=== PATIENT | female | born 1960 | race Caucasian/White ===

== ENCOUNTER 2018-05-27 16:53 | Emergency (ER) | payer OTHER ==
[2018-05-27 17:12] VITALS: BP 97/62; PULSE 74; RESP 16; TEMP 98.4
--- NOTE | 2018-05-27 18:28 | ED ---
ENT HPI - General Chief complaint: ENT Stated complaint: throat pain Time Seen by Provider: 05/27/18 18:14 Source: patient, RN notes reviewed Mode of arrival: ambulatory Limitations: no limitations - History of Present Illness Initial comments: This is a 58-year-old female who presents to the emergency department with chief complaint of throat pain and a lump. Patient states that since yesterday she has had a sore throat, left ear pain and a runny nose. She denies any fevers or chills, cough, chest pain or shortness of breath, abdominal pain, nausea or vomiting. Patient states that when she woke up this morning she had a tender mass on the left side of her neck. - Related Data Allergies Allergy/AdvReac Type Severity Reaction Status Date / Time No Known Allergies Allergy Verified 05/27/18 17:12 Review of Systems ROS Statement: Those systems with pertinent positive or pertinent negative responses have been documented in the HPI. ROS Other: All systems not noted in ROS Statement are negative. Past Medical History Past Medical History: No Reported History, Thyroid Disorder Additional Past Medical History / Comment(s): cysts on (R) kidney. History of Any Multi-Drug Resistant Organisms: None Reported Additional Past Surgical History / Comment(s): parathyroidectomy Past Psychological History: Bipolar Smoking Status: Current every day smoker Past Alcohol Use History: None Reported Past Drug Use History: None Reported General Exam - General Exam Comments Initial Comments: General: Awake and alert, well-developed; in no apparent distress. HEENT: Head atraumatic, normocephalic. Pupils are equal, round and reactive to light. Extraocular movements intact. Oropharynx moist without erythema or exudate. Bilateral TMs are pearly without effusion or bulging. Neck: Supple. Normal ROM. Tenderness left-sided submandibular lymphadenopathy. Cardiovascular: Regular rate and rhythm. No murmurs, rubs or gallops. Chest symmetrical. Respiratory: Lungs clear to auscultation bilaterally. No wheezes, rales or rhonchi. Normal respiratory effort with no use of accessory muscles. Musculoskeletal: Normal ROM, no tenderness bilateral upper and lower extremities. Ambulating normally. Skin: [place], warm and dry without rashes or lesions. Neurological: Alert and oriented x3. CN II-XII grossly intact. Speech is fluent and answers are appropriate. No focal neuro deficits. Psychiatric: Normal mood and affect. No overt signs of depression or anxiety noted. Limitations: no limitations Course Vital Signs 05/27/18 17:08 Temperature 98.4 F Pulse Rate 74 Respiratory 16 Rate Blood Pressure 97/62 O2 Sat by Pulse 98 Oximetry Medical Decision Making - Medical Decision Making This is a 58-year-old female who presents to the emergency department with chief complaint of sore throat and neck lump. Patient states yesterday morning she developed a sore throat, left ear pain and a runny nose. She states that this morning she woke up and had a tender lump on the left side of her neck. On physical examination, oropharynx is non-erythematous. Bilateral TMs are pearly without effusion. Patient has a tender submandibular lymphadenopathy. Likely viral at this point as her symptoms have only been present for one day. Recommended following up with her primary care provider and if symptoms persist longer than 1 week that antibiotics may be warranted at that time. Patient's vital signs are stable and she is in no acute distress. Patient will be discharged home at this time. She is in agreement and voices understanding. All questions were answered. Disposition Clinical Impression: Upper respiratory infection, Lymphadenopathy Disposition: HOME SELF-CARE Condition: Good Instructions: Upper Respiratory Infection (ED), Lymphadenopathy (ED) Additional Instructions: Please follow up with primary care provider within 1-2 days. Return to emergency department if symptoms should worsen or any concerns arise. Is patient prescribed a controlled substance at d/c from ED?: No Referrals: Keegan Bragg MD [Primary Care Provider] - 1-2 days Time of Disposition: 18:27
== END 2018-05-27 18:45 | disposition home or self-care (01) ==
LOC: EC 16:53
DX: J06.9 Acute upper respiratory infection, unspecified (principal); R59.1 Generalized enlarged lymph nodes; F17.200 Nicotine dependence, unspecified, uncomplicated
CPT/HCPCS: 99282

== ENCOUNTER 2018-07-16 21:03 | Emergency (ER) | payer OTHER ==
--- NOTE | 2018-07-16 21:40 | ED ---
Psych HPI <Angelia Alberto - Last Filed: 07/17/18 02:44> - General Source: patient, EMS, RN notes reviewed, old records reviewed Mode of arrival: EMS - History of Present Illness MD Complaint: suicidal ideation, feels depressed -: unknown Associated Psychiatric Symptoms: depression, suicidal ideation History of same: Yes Quality: changing over time, getting worse Improves With: none Worsens With: none Associated Symptoms: denies other symptoms <Mark Carson - Last Filed: 07/20/18 20:26> - General Chief Complaint: Psychiatric Symptoms Stated Complaint: SUICIDAL Time Seen by Provider: 07/16/18 21:13 - History of Present Illness Initial Comments: This is a 58-year-old female the ER for evaluation. Patient presents today for evaluation regarding overdose. Intentional overdose secondary to suicide. Patient was depressed earlier today took her medications all at once. Denies current symptoms of suicide, but coming in for evaluation regarding overdose. Patient's brought in by PD (Mark Carson) - Related Data Home Medications Medication Instructions Recorded Confirmed Cyanocobalamin (Vitamin B-12) 2,500 mcg PO DAILY 05/27/18 07/16/18 [Vitamin B12] Multivitamins, Thera [Multivitamin 1 tab PO DAILY 05/27/18 07/16/18 (formulary)] Pantoprazole Sodium [Protonix] 40 mg PO BID 05/27/18 07/16/18 clonazePAM [KlonoPIN] 1 mg PO QID PRN 05/27/18 07/16/18 Venlafaxine HCl [Effexor XR] 225 mg PO DAILY 07/16/18 07/16/18 lamoTRIgine [LaMICtal] 100 mg PO BID 07/16/18 07/16/18 risperiDONE 3 mg PO BID 07/16/18 07/16/18 Allergies Allergy/AdvReac Type Severity Reaction Status Date / Time No Known Allergies Allergy Verified 07/16/18 21:30 Review of Systems ROS Other: All systems not noted in ROS Statement are negative. <Angelia Alberto - Last Filed: 07/17/18 02:44> ROS Other: All systems not noted in ROS Statement are negative. <Mark Carson - Last Filed: 07/20/18 20:26> ROS Statement: Those systems with pertinent positive or pertinent negative responses have been documented in the HPI. Past Medical History Past Medical History: No Reported History, Thyroid Disorder Additional Past Medical History / Comment(s): cysts on (R) kidney. History of Any Multi-Drug Resistant Organisms: None Reported Additional Past Surgical History / Comment(s): parathyroidectomy Past Psychological History: Bipolar Smoking Status: Current every day smoker Past Alcohol Use History: None Reported Past Drug Use History: None Reported <Mark Carson - Last Filed: 07/20/18 20:26> General Exam Limitations: no limitations General appearance: alert, in no apparent distress Head exam: Present: atraumatic, normocephalic, normal inspection Eye exam: Present: normal appearance, PERRL, EOMI. Absent: scleral icterus, conjunctival injection, periorbital swelling ENT exam: Present: normal exam, mucous membranes moist Neck exam: Present: normal inspection. Absent: tenderness, meningismus, lymphadenopathy Respiratory exam: Present: normal lung sounds bilaterally. Absent: respiratory distress, wheezes, rales, rhonchi, stridor Cardiovascular Exam: Present: regular rate, normal rhythm, normal heart sounds. Absent: systolic murmur, diastolic murmur, rubs, gallop, clicks GI/Abdominal exam: Present: soft, normal bowel sounds. Absent: distended, tenderness, guarding, rebound, rigid Extremities exam: Present: normal inspection, full ROM, normal capillary refill. Absent: tenderness, pedal edema, joint swelling, calf tenderness Back exam: Present: normal inspection Neurological exam: Present: alert, oriented X3, CN II-XII intact Psychiatric exam: Present: normal affect, normal mood Skin exam: Present: warm, dry, intact, normal color. Absent: rash <Mark Carson - Last Filed: 07/20/18 20:26> Course <Angelia Alberto P - Last Filed: 07/17/18 02:44> <Mark Carson - Last Filed: 07/20/18 20:26> Vital Signs 07/16/18 07/17/18 07/17/18 21:21 03:02 04:35 Temperature 97.1 F L 98.4 F Pulse Rate 81 79 Respiratory 17 17 18 Rate Blood Pressure 113/76 122/68 O2 Sat by Pulse 99 97 Oximetry - Reevaluation(s) Reevaluation #1: 07/16/18 21:40 Patient medically clear for psychiatric evaluation (Mark Carosn) Reevaluation #2: 07/16/18 21:40 Patient is petition by PD (Mark Carson) Medical Decision Making - Lab Data Result diagrams: 07/16/18 21:50 07/16/18 21:50 <Angelia Alberto - Last Filed: 07/17/18 02:44> - Lab Data Result diagrams: 07/16/18 21:50 07/16/18 21:50 - EKG Data -: EKG Interpreted by Me (EKG shows sinus rhythm rate of 70, AL 170, QRS 122, QTc 465) EKG shows normal: sinus rhythm Rate: normal <Mark Carson - Last Filed: 07/20/18 20:26> - Medical Decision Making Patient care was signed out to me at shift change. Patient presented to the emergency department intoxicated with suicidal thoughts. Patient was evaluated by EPS and they made the determination that patient is not safe for discharge home and requires inpatient admission. Due to there being no beds available in our facility decision was made to transfer the patient. The patient was petitioned by EPS nurse. I personally saw and evaluated the patient who confirm that she has been drinking heavily, feeling depressed and did take a handful of pills yesterday as well as cut her left wrist, superficially. Patient does have a history of bipolar and self-harm behaviors. Patient states that she currently does not have a psychiatrist or psychologist, her bipolar medications are managed by her primary care physician At this time I do agree that the patient is a danger to herself and will benefit from inpatient admission. I completed the psychiatric certification paperwork. (Angelia Alberto) 58 female the ER for evaluation, will be admitted for psychiatric evaluation and treatment (Mark Carson) - Lab Data Lab Results 07/16/18 07/16/18 07/16/18 Range/Units 21:50 21:50 21:50 WBC (3.8-10.6) k/uL RBC (3.80-5.40) m/uL Hgb (11.4-16.0) gm/dL Hct (34.0-46.0) % MCV (80.0-100.0) fL MCH (25.0-35.0) pg MCHC (31.0-37.0) g/dL RDW (11.5-15.5) % Plt Count (150-450) k/uL Neutrophils % % Lymphocytes % % Monocytes % % Eosinophils % % Basophils % % Neutrophils # (1.3-7.7) k/uL Lymphocytes # (1.0-4.8) k/uL Monocytes # (0-1.0) k/uL Eosinophils # (0-0.7) k/uL Basophils # (0-0.2) k/uL PT 10.4 (9.0-12.0) sec INR 1.1 (<1.2) Sodium 138 (137-145) mmol/L Potassium (3.5-5.1) mmol/L Chloride 107 (98-107) mmol/L Carbon Dioxide 24 (22-30) mmol/L Anion Gap 7 mmol/L BUN 20 H (7-17) mg/dL Creatinine 0.91 (0.52-1.04) mg/dL Est GFR (CKD-EPI)AfAm 81 (>60 ml/min/1.73 sqM) Est GFR (CKD-EPI)NonAf 70 (>60 ml/min/1.73 sqM) Glucose 77 (74-99) mg/dL Calcium 10.2 (8.4-10.2) mg/dL Total Bilirubin 1.0 (0.2-1.3) mg/dL AST 39 H (14-36) U/L ALT 25 (9-52) U/L Alkaline Phosphatase 86 (38-126) U/L Total Creatine Kinase 66 (30-135) U/L CK-MB (CK-2) 0.6 (0.0-2.4) ng/mL CK-MB (CK-2) Rel Index 0.9 Total Protein 7.1 (6.3-8.2) g/dL Albumin 4.2 (3.5-5.0) g/dL Lipase 225 (23-300) U/L Urine Color Urine Appearance (Clear) Urine pH (5.0-8.0) Ur Specific [place] (1.001-1.035) Urine Protein (Negative) Urine Glucose (UA) (Negative) Urine Ketones (Negative) Urine Blood (Negative) Urine Nitrite (Negative) Urine Bilirubin (Negative) Urine Urobilinogen (<2.0) mg/dL Ur Leukocyte Esterase (Negative) Urine WBC (0-5) /hpf Ur Squamous Epith Cells (0-4) /hpf Urine Mucus (None) /hpf Salicylates <1.0 mg/dL Urine Opiates Screen (NotDetected) Ur Oxycodone Screen (NotDetected) Urine Methadone Screen (NotDetected) Ur Propoxyphene Screen (NotDetected) Acetaminophen <10.0 ug/mL Ur Barbiturates Screen (NotDetected) U Tricyclic Antidepress (NotDetected) Ur Phencyclidine Scrn (NotDetected) Ur Amphetamines Screen (NotDetected) U Methamphetamines Scrn (NotDetected) U Benzodiazepines Scrn (NotDetected) Urine Cocaine Screen (NotDetected) U Marijuana (THC) Screen (NotDetected) Serum Alcohol <10 mg/dL 07/16/18 07/16/18 Range/Units 21:50 22:03 WBC 9.3 (3.8-10.6) k/uL RBC 4.29 (3.80-5.40) m/uL Hgb 13.5 (11.4-16.0) gm/dL Hct 39.1 (34.0-46.0) % MCV 91.1 (80.0-100.0) fL MCH 31.5 (25.0-35.0) pg MCHC 34.6 (31.0-37.0) g/dL RDW 13.0 (11.5-15.5) % Plt Count 273 (150-450) k/uL Neutrophils % 75 % Lymphocytes % 17 % Monocytes % 6 % Eosinophils % 1 % Basophils % 0 % Neutrophils # 7.0 (1.3-7.7) k/uL Lymphocytes # 1.6 (1.0-4.8) k/uL Monocytes # 0.5 (0-1.0) k/uL Eosinophils # 0.1 (0-0.7) k/uL Basophils # 0.0 (0-0.2) k/uL PT (9.0-12.0) sec INR (<1.2) Sodium (137-145) mmol/L Potassium (3.5-5.1) mmol/L Chloride (98-107) mmol/L Carbon Dioxide (22-30) mmol/L Anion Gap mmol/L BUN (7-17) mg/dL Creatinine (0.52-1.04) mg/dL Est GFR (CKD-EPI)AfAm (>60 ml/min/1.73 sqM) Est GFR (CKD-EPI)NonAf (>60 ml/min/1.73 sqM) Glucose (74-99) mg/dL Calcium (8.4-10.2) mg/dL Total Bilirubin (0.2-1.3) mg/dL AST (14-36) U/L ALT (9-52) U/L Alkaline Phosphatase (38-126) U/L Total Creatine Kinase (30-135) U/L CK-MB (CK-2) (0.0-2.4) ng/mL CK-MB (CK-2) Rel Index Total Protein (6.3-8.2) g/dL Albumin (3.5-5.0) g/dL Lipase (23-300) U/L Urine Color Light Yellow Urine Appearance Clear (Clear) Urine pH 5.5 (5.0-8.0) Ur Specific [place] 1.007 (1.001-1.035) Urine Protein Negative (Negative) Urine Glucose (UA) Negative (Negative) Urine Ketones Negative (Negative) Urine Blood Negative (Negative) Urine Nitrite Negative (Negative) Urine Bilirubin Negative (Negative) Urine Urobilinogen <2.0 (<2.0) mg/dL Ur Leukocyte Esterase Small H (Negative) Urine WBC 10 H (0-5) /hpf Ur Squamous Epith Cells 2 (0-4) /hpf Urine Mucus Rare H (None) /hpf Salicylates mg/dL Urine Opiates Screen Not Detected (NotDetected) Ur Oxycodone Screen Not Detected (NotDetected) Urine Methadone Screen Not Detected (NotDetected) Ur Propoxyphene Screen Not Detected (NotDetected) Acetaminophen ug/mL Ur Barbiturates Screen Not Detected (NotDetected) U Tricyclic Antidepress Not Detected (NotDetected) Ur Phencyclidine Scrn Not Detected (NotDetected) Ur Amphetamines Screen Not Detected (NotDetected) U Methamphetamines Scrn Not Detected (NotDetected) U Benzodiazepines Scrn Not Detected (NotDetected) Urine Cocaine Screen Not Detected (NotDetected) U Marijuana (THC) Screen Not Detected (NotDetected) Serum Alcohol mg/dL Disposition <Angelia Alberto P - Last Filed: 07/17/18 02:44> Is patient prescribed a controlled substance at d/c from ED?: No <Mark Carson - Last Filed: 07/20/18 20:26> Clinical Impression: Acute anxiety, Depression, Suicidal ideation Disposition: TRANSFER TO PSYCH HOSP/UNIT Condition: Fair Referrals: Keegan Bragg MD [Primary Care Provider] - 1-2 days
[2018-07-16 22:07] LABS: Basophils % (A) 0 %; Eosinophils # (A) 0.1 k/uL (0-0.7); Eosinophils % (A) 1 %; HCT 39.1 % (34.0-46.0); HGB 13.5 gm/dL (11.4-16.0); Lymphocytes # (A) 1.6 k/uL (1.0-4.8); Lymphocytes % (A) 17 %; MCH 31.5 pg (25.0-35.0); MCHC 34.6 g/dL (31.0-37.0); MCV 91.1 fL (80.0-100.0); Mean Platelet Volume 6.9; Monocytes # (A) 0.5 k/uL (0-1.0); Monocytes % (A) 6 %; Neutrophils % (A) 75 %; Platelet Count 273 k/uL (150-450); RBC 4.29 m/uL (3.80-5.40); WBC 9.3 k/uL (3.8-10.6)
[2018-07-16 22:13] LABS: Appearance,Urine Clear (Clear); Bilirubin,Urine Negative (Negative); Blood,Urine Negative (Negative); Color,Urine Light Yellow; Glucose,Urine (UA) Negative (Negative); Ketones,Urine Negative (Negative); Leukocyte Esterase,Urine Small (Negative); Mucus,Urine Rare /hpf; Nitrite,Urine Negative (Negative); PH, Urine 5.5 (5.0-8.0); Protein,Urine Negative (Negative); Specific Gravity,Urine 1.007 (1.001-1.035); Squamous Epithelial Cell,Urine 2 /hpf (0-4); Urobilinogen,Urine <2.0 mg/dL (<2.0); WBC,Urine 10 /hpf (0-5)
[2018-07-16 22:21] LABS: Amphetamine Screen,Urine Not Detected (NotDetected); Barbiturate Screen,Urine Not Detected (NotDetected); Benzodiazepines Screen,Urine Not Detected (NotDetected); Cocaine Screen,Urine Not Detected (NotDetected); Methadone Screen, Urine Not Detected (NotDetected); Opiate Screen,Urine Not Detected (NotDetected); Oxycodone Screen, Urine Not Detected (NotDetected); Phencyclidine Screen,Urine Not Detected (NotDetected); Tricyclic Antidepressant,Urine Not Detected (NotDetected); Urn Cannabinoid Scrn Not Detected (NotDetected)
[2018-07-16 22:26] LABS: INR 1.1 (<1.2); Prothrombin Time 10.4 sec (9.0-12.0)
[2018-07-16 22:29] LABS: Acetaminophen <10.0 ug/mL; Alcohol <10 mg/dL; Anion Gap 7 mmol/L; Calcium 10.2 mg/dL (8.4-10.2); Carbon Dioxide 24 mmol/L (22-30); Chloride 107 mmol/L (98-107); Glucose 77 mg/dL (74-99); Lipase 225 U/L (23-300); Salicylate <1.0 mg/dL; Sodium 138 mmol/L (137-145)
[2018-07-16 22:31] LABS: Albumin 4.2 g/dL (3.5-5.0)
[2018-07-16 22:32] LABS: ALT 25 U/L (9-52); AST 39 U/L (14-36); Alkaline Phosphatase 86 U/L (38-126); Blood Urea Nitrogen 20 mg/dL (7-17); Total Protein 7.1 g/dL (6.3-8.2)
[2018-07-16 22:36] LABS: Creatine Kinase MB 0.6 ng/mL (0.0-2.4)
[2018-07-17 04:36] VITALS: BP 122/68; PULSE 79; RESP 18; TEMP 98.4
== END 2018-07-17 06:33 ==
LOC: EC 21:03
DX: F41.9 Anxiety disorder, unspecified (principal); F31.9 Bipolar disorder, unspecified; R45.851 Suicidal ideations; F17.200 Nicotine dependence, unspecified, uncomplicated; Z79.899 Other long term (current) drug therapy
CPT/HCPCS: 36415; 80053; 80306; 80320; 81001; 82075; 82550; 82553; 83520; 83690; 85025; 85610; 93005; 99285

== ENCOUNTER → 2018-12-10 | Outpatient (CLI) | payer MEDICARE ==
[2018-12-10 08:40] LABS: Basophils % (A) 0 %; Eosinophils % (A) 0 %; HCT 43.9 % (34.0-46.0); HGB 14.8 gm/dL (11.4-16.0); Lymphocytes % (A) 15 %; MCH 31.4 pg (25.0-35.0); MCHC 33.7 g/dL (31.0-37.0); Mean Platelet Volume 6.6; Monocytes # (A) 0.5 k/uL (0-1.0); Monocytes % (A) 8 %; Neutrophils # (A) 5.2 k/uL (1.3-7.7); Neutrophils % (A) 76 %; Platelet Count 228 k/uL (150-450); RBC 4.72 m/uL (3.80-5.40); RDW 12.5 % (11.5-15.5); WBC 6.9 k/uL (3.8-10.6)
[2018-12-10 10:14] LABS: Erythrocyte Sedimentation Rate 8 mm/hr (0-20)
[2018-12-10 11:15] LABS: Creatinine 24 Hour,Urine 871.2 mg/24hr (800.0-1800.0)
[2018-12-10 14:55] LABS: Anion Gap 4 mmol/L; Blood Urea Nitrogen 19 mg/dL (7-17); C Reactive Protein <5.0 mg/L (<10.0); Calcium 10.3 mg/dL (8.4-10.2); Carbon Dioxide 31 mmol/L (22-30); Chloride 105 mmol/L (98-107); Glucose 90 mg/dL (74-99); Potassium 4.4 mmol/L (3.5-5.1); Sodium 140 mmol/L (137-145)
[2018-12-10 17:15] LABS: Total Volume 24 Hour,Urine 2400 mL
[2018-12-10 17:57] LABS: Total Protein 24 Hour,Urine 100.8 mg/24Hr
[2018-12-10 18:45] LABS: Rheumatoid Factor 6 IU/mL (0-15)
== END | disposition home or self-care (01) ==
LOC: LABWHC1 08:10
PROVIDERS: ATTEND Family Medicine
DX: Z00.00 Encounter for general adult medical examination without abnormal findings (principal); J44.9 Chronic obstructive pulmonary disease, unspecified; Q61.2 Polycystic kidney, adult type; R94.4 Abnormal results of kidney function studies
CPT/HCPCS: 36415; 80048; 81050; 82575; 84156; 85025; 85652; 86038; 86140; 86431

== ENCOUNTER → 2018-12-23 | Outpatient (CLI) | payer MEDICARE ==
--- NOTE | 2018-12-23 17:16 | US ---
EXAMINATION TYPE: US kidneys/renal and bladder DATE OF EXAM: 12/23/2018 COMPARISON: NONE CLINICAL HISTORY: 58-year-old female Q61.2 Polycystic kidney, adult type. TECHNIQUE: Multiple sonographic images of the kidneys and bladder are obtained. FINDINGS: EXAM MEASUREMENTS: Right Kidney: 9.6 x 3.4 x 3.9 cm Left Kidney: 10.0 x 3.1 x 4.9 cm No hydronephrosis on either side. Right Kidney: cyst lower/lateral measures 1.7 x 1.7 x 2.1 cm Left Kidney: several small cysts, largest measures 1.8 x 1.8 x 1.5 cm. Bladder: wnl Bilateral Jets seen: Yes IMPRESSION: 1. A few bilateral renal cysts, largest measuring 1.8 cm. 2. No hydronephrosis on either side.
== END | disposition home or self-care (01) ==
LOC: RADUSWWP 14:51
PROVIDERS: ATTEND Family Medicine
DX: N28.1 Cyst of kidney, acquired (principal)
CPT/HCPCS: 76770

== ENCOUNTER 2019-05-02 17:06 | Emergency (ER) | payer MEDICARE ==
[2019-05-02 17:19] VITALS: TEMP 98.2
[2019-05-02] MEDS ORDERED: MECLIZINE 12.5 MG TAB PO STA (17:53)
[2019-05-02] MEDS ORDERED: SODIUM CHLORIDE 0.9% 1,000 ML IV STA (17:53)
[2019-05-02] MEDS ORDERED: SODIUM CHLORIDE 0.9% 500 ML 500 ML IV STA (17:53)
[2019-05-02] MEDS ORDERED: IPRATROPIUM-ALBUTEROL 3 ML NEB INHALATION STA (17:55)
--- NOTE | 2019-05-02 17:58 | ED ---
Dizziness HPI - General Chief Complaint: Dizziness Stated Complaint: dizziness Time Seen by Provider: 05/02/19 17:30 Source: patient Mode of arrival: ambulatory Limitations: no limitations - History of Present Illness Initial Comments: This is a 59-year-old female was a 1-1/2 pack a day smoker who presents with the onset of complaints of dizziness that started 2 days ago. She states it gets worse with head movement or positional changes. She has a headache fevers chills nausea vomiting sweats she does have some cough and shortness of breath. No focal weakness no other symptoms no trauma reported no other modifying factors. MD Complaint: dizziness, other - Related Data Home Medications Medication Instructions Recorded Confirmed Multivitamins, Thera [Multivitamin 1 tab PO DAILY 05/27/18 05/02/19 (formulary)] clonazePAM [KlonoPIN] 1 mg PO QID PRN 05/27/18 05/02/19 risperiDONE 3 mg PO BID 07/16/18 05/02/19 Ascorbic Acid [Vitamin C] 500 mg PO DAILY 12/26/18 05/02/19 Calcium Carbonate [Calcium] 600 mg PO DAILY 12/26/18 05/02/19 Levothyroxine Sodium [Synthroid] 50 mcg PO DAILY 12/26/18 05/02/19 Venlafaxine HCl ER [Effexor Xr] 225 mg PO DAILY 12/26/18 05/02/19 Pantoprazole Sodium [Protonix] 40 mg PO BID 05/02/19 05/02/19 lamoTRIgine [LaMICtal] 100 mg PO BID 05/02/19 05/02/19 Previous Rx's Medication Instructions Recorded Meclizine [Antivert] 25 mg PO TID #20 tab 05/02/19 Allergies Allergy/AdvReac Type Severity Reaction Status Date / Time No Known Allergies Allergy Verified 05/02/19 18:14 Review of Systems ROS Statement: Those systems with pertinent positive or pertinent negative responses have been documented in the HPI. ROS Other: All systems not noted in ROS Statement are negative. Past Medical History Past Medical History: Thyroid Disorder Additional Past Medical History / Comment(s): cysts on (R) kidney. History of Any Multi-Drug Resistant Organisms: None Reported Past Surgical History: Cholecystectomy, Hysterectomy Additional Past Surgical History / Comment(s): parathyroidectomy Past Psychological History: Bipolar Smoking Status: Current every day smoker Past Alcohol Use History: None Reported Past Drug Use History: None Reported, Opiates, Prescription Drug Abuse General Exam - General Exam Comments Initial Comments: This is a well-developed well-nourished awake alert oriented 3 female she is audibly wheezing. Limitations: no limitations General appearance: alert, in no apparent distress Head exam: Present: atraumatic, normocephalic, normal inspection Eye exam: Present: normal appearance, PERRL, EOMI. Absent: scleral icterus, conjunctival injection, periorbital swelling ENT exam: Present: normal exam, mucous membranes moist Neck exam: Present: normal inspection, full ROM, other. Absent: tenderness, meningismus, lymphadenopathy Respiratory exam: Present: wheezes, decreased breath sounds (No stridor JVD or bruits). Absent: respiratory distress, rales, rhonchi, stridor Cardiovascular Exam: Present: regular rate, normal rhythm, normal heart sounds. Absent: systolic murmur, diastolic murmur, rubs, gallop, clicks GI/Abdominal exam: Present: soft, normal bowel sounds. Absent: distended, tenderness, guarding, rebound, rigid Extremities exam: Present: normal inspection, full ROM, normal capillary refill. Absent: tenderness, pedal edema, joint swelling, calf tenderness Back exam: Present: normal inspection Neurological exam: Present: alert, oriented X3, CN II-XII intact Psychiatric exam: Present: normal affect, normal mood Skin exam: Present: warm, dry, intact, normal color. Absent: rash Course Vital Signs 05/02/19 05/02/19 05/02/19 17:16 17:44 18:34 Temperature 98.2 F Pulse Rate 77 67 61 Respiratory 18 20 Rate Blood Pressure 107/68 O2 Sat by Pulse 97 99 Oximetry 05/02/19 18:48 Temperature Pulse Rate 62 Respiratory Rate Blood Pressure O2 Sat by Pulse Oximetry EKG Findings - EKG Results: EKG: interpreted by TELLY, sinus rhythm (Sinus rhythm rate 67 appear interval 190 QRS duration 110 QT since QTC 460/[address]-T wave changes) Procedures - Smoking Cessation Time Spent Discussing Smoking Cessation w/Patient (Minutes): 3 Patient Acknowledges Need for Cessation: Yes Medical Decision Making - Medical Decision Making Patient is feeling improved after the medication was rendered workup thus far is unremarkable patient does demonstrate evidence of a benign positional vertigo she will be discharged on appropriate medication she is a follow-up doctor return when necessary she is in agreement with this. - Lab Data Result diagrams: 05/02/19 17:40 05/02/19 17:40 Lab Results 05/02/19 05/02/19 05/02/19 Range/Units 17:40 17:40 17:40 WBC 10.3 (3.8-10.6) k/uL RBC 4.52 (3.80-5.40) m/uL Hgb 14.0 (11.4-16.0) gm/dL Hct 41.1 (34.0-46.0) % MCV 90.9 (80.0-100.0) fL MCH 31.0 (25.0-35.0) pg MCHC 34.1 (31.0-37.0) g/dL RDW 12.5 (11.5-15.5) % Plt Count 270 (150-450) k/uL Neutrophils % 77 % Lymphocytes % 16 % Monocytes % 6 % Eosinophils % 0 % Basophils % 0 % Neutrophils # 7.9 H (1.3-7.7) k/uL Lymphocytes # 1.6 (1.0-4.8) k/uL Monocytes # 0.6 (0-1.0) k/uL Eosinophils # 0.0 (0-0.7) k/uL Basophils # 0.0 (0-0.2) k/uL Sodium 139 (137-145) mmol/L Potassium 4.4 (3.5-5.1) mmol/L Chloride 106 (98-107) mmol/L Carbon Dioxide 26 (22-30) mmol/L Anion Gap 7 mmol/L BUN 18 H (7-17) mg/dL Creatinine 1.25 H (0.52-1.04) mg/dL Est GFR (CKD-EPI)AfAm 55 (>60 ml/min/1.73 sqM) Est GFR (CKD-EPI)NonAf 48 (>60 ml/min/1.73 sqM) Glucose 79 (74-99) mg/dL Calcium 10.0 (8.4-10.2) mg/dL Magnesium 2.0 (1.6-2.3) mg/dL Total Bilirubin 0.3 (0.2-1.3) mg/dL AST 30 (14-36) U/L ALT 17 (9-52) U/L Alkaline Phosphatase 97 (38-126) U/L Creatine Kinase 55 (30-135) U/L Troponin I <0.012 (0.000-0.034) ng/mL Total Protein 6.8 (6.3-8.2) g/dL Albumin 4.3 (3.5-5.0) g/dL Urine Color Urine Appearance (Clear) Urine pH (5.0-8.0) Ur Specific [place] (1.001-1.035) Urine Protein (Negative) Urine Glucose (UA) (Negative) Urine Ketones (Negative) Urine Blood (Negative) Urine Nitrite (Negative) Urine Bilirubin (Negative) Urine Urobilinogen (<2.0) mg/dL Ur Leukocyte Esterase (Negative) 05/02/19 Range/Units 18:12 WBC (3.8-10.6) k/uL RBC (3.80-5.40) m/uL Hgb (11.4-16.0) gm/dL Hct (34.0-46.0) % MCV (80.0-100.0) fL MCH (25.0-35.0) pg MCHC (31.0-37.0) g/dL RDW (11.5-15.5) % Plt Count (150-450) k/uL Neutrophils % % Lymphocytes % % Monocytes % % Eosinophils % % Basophils % % Neutrophils # (1.3-7.7) k/uL Lymphocytes # (1.0-4.8) k/uL Monocytes # (0-1.0) k/uL Eosinophils # (0-0.7) k/uL Basophils # (0-0.2) k/uL Sodium (137-145) mmol/L Potassium (3.5-5.1) mmol/L Chloride (98-107) mmol/L Carbon Dioxide (22-30) mmol/L Anion Gap mmol/L BUN (7-17) mg/dL Creatinine (0.52-1.04) mg/dL Est GFR (CKD-EPI)AfAm (>60 ml/min/1.73 sqM) Est GFR (CKD-EPI)NonAf (>60 ml/min/1.73 sqM) Glucose (74-99) mg/dL Calcium (8.4-10.2) mg/dL Magnesium (1.6-2.3) mg/dL Total Bilirubin (0.2-1.3) mg/dL AST (14-36) U/L ALT (9-52) U/L Alkaline Phosphatase (38-126) U/L Creatine Kinase (30-135) U/L Troponin I (0.000-0.034) ng/mL Total Protein (6.3-8.2) g/dL Albumin (3.5-5.0) g/dL Urine Color Light Yellow Urine Appearance Clear (Clear) Urine pH 6.5 (5.0-8.0) Ur Specific [place] 1.004 (1.001-1.035) Urine Protein Negative (Negative) Urine Glucose (UA) Negative (Negative) Urine Ketones Negative (Negative) Urine Blood Negative (Negative) Urine Nitrite Negative (Negative) Urine Bilirubin Negative (Negative) Urine Urobilinogen <2.0 (<2.0) mg/dL Ur Leukocyte Esterase Negative (Negative) - Radiology Data Radiology results: report reviewed (I did review the imaging and report no acute findings. ), image reviewed Disposition Clinical Impression: Benign paroxysmal positional vertigo Disposition: HOME SELF-CARE Condition: Good Instructions (If sedation given, give patient instructions): Dizziness (ED), Benign Paroxysmal Positional Vertigo (ED) Prescriptions: Meclizine [Antivert] 25 mg PO TID #20 tab Is patient prescribed a controlled substance at d/c from ED?: No Referrals: Angel Ansari MD [Primary Care Provider] - 1-2 days
[2019-05-02 18:04] LABS: Basophils % (A) 0 %; Eosinophils % (A) 0 %; HCT 41.1 % (34.0-46.0); Lymphocytes # (A) 1.6 k/uL (1.0-4.8); Lymphocytes % (A) 16 %; MCHC 34.1 g/dL (31.0-37.0); MCV 90.9 fL (80.0-100.0); Mean Platelet Volume 6.5; Monocytes # (A) 0.6 k/uL (0-1.0); Monocytes % (A) 6 %; Neutrophils # (A) 7.9 k/uL (1.3-7.7); Neutrophils % (A) 77 %; Platelet Count 270 k/uL (150-450); RBC 4.52 m/uL (3.80-5.40); RDW 12.5 % (11.5-15.5); WBC 10.3 k/uL (3.8-10.6)
[2019-05-02 18:16] LABS: Albumin 4.3 g/dL (3.5-5.0); Potassium 4.4 mmol/L (3.5-5.1); Total Bilirubin 0.3 mg/dL (0.2-1.3); Total Protein 6.8 g/dL (6.3-8.2)
[2019-05-02 18:26] LABS: Appearance,Urine Clear (Clear); Bilirubin,Urine Negative (Negative); Blood,Urine Negative (Negative); Color,Urine Light Yellow; Glucose,Urine (UA) Negative (Negative); Ketones,Urine Negative (Negative); Leukocyte Esterase,Urine Negative (Negative); Nitrite,Urine Negative (Negative); PH, Urine 6.5 (5.0-8.0); Protein,Urine Negative (Negative); Specific Gravity,Urine 1.004 (1.001-1.035); Urobilinogen,Urine <2.0 mg/dL (<2.0)
--- NOTE | 2019-05-02 18:33 | CT ---
EXAMINATION TYPE: CT brain wo con DATE OF EXAM: 05/02/2019 COMPARISON: None HISTORY: PT c/o being dizzy since Thursday. CT DLP: 1078.4 mGycm Automated exposure control for dose reduction was used. FINDINGS: Ventricles and sulci appear normal. There is no mass effect nor midline shift. There is no sign of in tracranial hemorrhage. The calvarium is intact. IMPRESSION: NEGATIVE CT SCAN OF THE BRAIN.
--- NOTE | 2019-05-02 18:35 | XR ---
EXAMINATION TYPE: XR chest 2V DATE OF EXAM: 05/02/2019 COMPARISON: NONE HISTORY: Cough TECHNIQUE: Frontal and lateral views of the chest are obtained. FINDINGS: Heart and mediastinum are normal. Lungs are clear. Diaphragm is normal. There are chest le ads. Bony thorax is intact. IMPRESSION: Normal chest
[2019-05-02 20:01] VITALS: BP 117/71; PULSE 73; RESP 18
== END 2019-05-02 19:59 | disposition home or self-care (01) ==
LOC: EC 17:06
DX: H81.10 Benign paroxysmal vertigo, unspecified ear (principal); R50.9 Fever, unspecified; R05 Cough; R06.02 Shortness of breath; E07.9 Disorder of thyroid, unspecified; F31.9 Bipolar disorder, unspecified; F17.210 Nicotine dependence, cigarettes, uncomplicated; Z71.6 Tobacco abuse counseling; Z79.890 Hormone replacement therapy; Z79.899 Other long term (current) drug therapy
CPT/HCPCS: 36415; 70450; 71046; 80053; 81003; 82550; 83735; 84484; 85025; 93005; 94640; 99284; 99406

== ENCOUNTER → 2019-07-29 | Outpatient (CLI) | payer MEDICARE ==
[2019-07-29 16:57] LABS: EBV-EA (IgG) 0.2 AI; EBV-EBNA(IgG) 7.5 AI; EBV-VCA (IgG) >8.0 AI
[2019-07-29 17:00] LABS: EBV-VCA (IgM) 0.2 AI
== END | disposition home or self-care (01) ==
LOC: LABWHC1 10:24
PROVIDERS: ATTEND Nurse Practitioner Family
DX: R53.83 Other fatigue (principal)
CPT/HCPCS: 36415; 85652; 86140; 86308; 86644; 86645; 86663; 86664; 86665

== ENCOUNTER → 2019-09-14 | Outpatient (CLI) | payer MEDICARE ==
--- NOTE | 2019-09-14 11:38 | XR ---
EXAMINATION TYPE: XR hand complete RT DATE OF EXAM: 09/14/2019 CLINICAL HISTORY: pain TECHNIQUE: Frontal, lateral and oblique images of the right hand are obtained. COMPARISON: None. FINDINGS: There is no acute fracture/dislocation evident. The joint spaces appear within normal limi ts. The overlying soft tissue appears unremarkable. IMPRESSION: There is no acute fracture or dislocation ICD 10 NO FRACTURE, INITIAL EVALUATION
== END | disposition home or self-care (01) ==
LOC: RADXRMAIN 11:06
PROVIDERS: ATTEND Family Medicine
DX: M79.646 Pain in unspecified finger(s) (principal)

== ENCOUNTER → 2019-11-02 | Outpatient (CLI) | payer MEDICARE ==
--- NOTE | 2019-11-03 11:24 | MM ---
Reason for exam: screening (asymptomatic). Last mammogram was performed 4 years and 10 months ago. History: Patient is postmenopausal. Family history of breast cancer in sister and breast cancer in mother. Physical Findings: A clinical breast exam by your physician is recommended on an annual basis and results should be correlated with mammographic findings. MG 3D Screening Mammo W/Cad Bilateral CC and MLO view(s) were taken. Prior study comparison: January 03, 2015, mammogram. June 15, 2013, mammogram. The breast tissue is heterogeneously dense. This may lower the sensitivity of mammography. There are benign appearing round vascular calcifications bilaterally. There is no discrete abnormality. ASSESSMENT: Benign, BI-RAD 2 RECOMMENDATION: Routine screening mammogram of both breasts in 1 year.
--- NOTE | 2019-11-09 09:39 | P.ARTDOP ---
Arterial Doppler LOWER EXTREMITY ARTERIAL DOPPLER: DATE OF SERVICE: 11/02/2019 Reason for study: Bilateral leg pain. Doppler waveforms: Multiphasic bilaterally throughout. Pulse volume recording: []. Pressure gradients: None. Ankle-brachial indices: Greater than 1 bilaterally. Toe pressures: [] on the right, [] on the left Impression: Normal study.
== END | disposition home or self-care (01) ==
LOC: RADMAMWWP 12:38
PROVIDERS: ATTEND Family Medicine
DX: Z12.31 Encounter for screening mammogram for malignant neoplasm of breast (principal); M79.661 Pain in right lower leg; M79.662 Pain in left lower leg
CPT/HCPCS: 77063; 77067; 93922

== ENCOUNTER 2019-11-17 14:59 | Emergency (ER) | payer MEDICARE ==
[2019-11-17 15:43] LABS: Basophils # (A) 0.1 k/uL (0-0.2); Basophils % (A) 2 %; Eosinophils % (A) 0 %; HCT 42.8 % (34.0-46.0); HGB 14.5 gm/dL (11.4-16.0); Lymphocytes # (A) 1.2 k/uL (1.0-4.8); Lymphocytes % (A) 17 %; MCH 31.1 pg (25.0-35.0); MCHC 33.8 g/dL (31.0-37.0); MCV 91.9 fL (80.0-100.0); Mean Platelet Volume 6.9; Monocytes # (A) 0.5 k/uL (0-1.0); Monocytes % (A) 7 %; Neutrophils # (A) 5.2 k/uL (1.3-7.7); Neutrophils % (A) 73 %; Platelet Count 254 k/uL (150-450); RBC 4.66 m/uL (3.80-5.40); RDW 12.2 % (11.5-15.5); WBC 7.1 k/uL (3.8-10.6)
[2019-11-17 15:53] LABS: Albumin 4.2 g/dL (3.5-5.0); Calcium 9.5 mg/dL (8.4-10.2); Potassium 4.2 mmol/L (3.5-5.1); Total Bilirubin 0.4 mg/dL (0.2-1.3); Total Protein 6.8 g/dL (6.3-8.2)
[2019-11-17 15:54] LABS: Appearance,Urine Clear (Clear); Bilirubin,Urine Negative (Negative); Blood,Urine Negative (Negative); Color,Urine Light Yellow; Glucose,Urine (UA) Negative (Negative); Ketones,Urine Negative (Negative); Leukocyte Esterase,Urine Negative (Negative); Nitrite,Urine Negative (Negative); Protein,Urine Negative (Negative); Specific Gravity,Urine 1.014 (1.001-1.035); Urobilinogen,Urine <2.0 mg/dL (<2.0)
--- NOTE | 2019-11-17 15:59 | XR ---
EXAMINATION TYPE: XR ribs RT w pa chest xray DATE OF EXAM: 11/17/2019 COMPARISON: NONE HISTORY: Pain TECHNIQUE: Single view of the chest 4 views of the ribs are submitted. FINDINGS: The lungs are clear. No Evidence for pneumothorax. No evidence for focal contusion. Medi astinal structures are midline. Evaluation of the ribs fails to demonstrate evidence for displaced r ib fracture or secondary sign of rib fracture. IMPRESSION: Negative study
--- NOTE | 2019-11-17 16:16 | CT ---
EXAMINATION TYPE: CT abdomen pelvis w con DATE OF EXAM: 11/17/2019 COMPARISON: None HISTORY: Fall and injury to flank region [address] DLP: 763.8 mGycm CONTRAST: CT scan of the abdomen and pelvis is performed without Oral Contrast and with IV Contrast, patient in jected with 100 mL of Isovue 370. FINDINGS: LUNG BASES-: No visible nodule. No infiltrate. LIVER/GB: Cholecystectomy clips are in place. No space occupying hepatic lesion. Biliary tree is o f normal caliber. PANCREAS: No inflammation. No distinct mass. SPLEEN: No splenic enlargement. No lesion seen. ADRENALS: No nodule. No thickening. KIDNEYS/BLADDER: No hydronephrosis. No nephrolithiasis. Small renal cystic changes noted. Urinary b ladder grossly unremarkable. BOWEL: Normal appendix. Normal bowel caliber. No inflammation. GENITAL ORGANS: Hysterectomy changes. LYMPH NODES: No greater than 1cm abdominal or pelvic lymph nodes are appreciated. AORTA: No significant abnormality. OSSEOUS STRUCTURES: No significant abnormality is seen. OTHER: Trace free fluid seen within the pelvis. IMPRESSION: 1. Trace free fluid noted in the pelvis. No evidence for solid or hollow abdominal visceral injury. N o free air seen.
--- NOTE | 2019-11-17 16:26 | ED ---
General Adult HPI - General Chief complaint: Fall Stated complaint: fall-back pain Time Seen by Provider: 11/17/19 15:11 Source: patient, RN notes reviewed Mode of arrival: ambulatory Limitations: no limitations - History of Present Illness Initial comments: Patient's a 59-year-old female presented to the emergency room today with a chief complaint of a fall that occurred 4 days ago. She states that she tripped falling hitting eye and table on the right side of the lower back. She does not that since pain over the lower posterior ribs. States he states seems to be getting worse. She does not pain worse movements. Denies any other complaints or symptoms. Patient denies any recent fever, chills, shortness of breath, chest pain, nausea or vomiting, headaches or visual changes, or any other complaints. - Related Data Home Medications Medication Instructions Recorded Confirmed Multivitamins, Thera [Multivitamin 1 tab PO DAILY 05/27/18 05/02/19 (formulary)] clonazePAM [KlonoPIN] 1 mg PO QID PRN 05/27/18 05/02/19 risperiDONE 3 mg PO BID 07/16/18 05/02/19 Ascorbic Acid [Vitamin C] 500 mg PO DAILY 12/26/18 05/02/19 Calcium Carbonate [Calcium] 600 mg PO DAILY 12/26/18 05/02/19 Levothyroxine Sodium [Synthroid] 50 mcg PO DAILY 12/26/18 05/02/19 Venlafaxine HCl ER [Effexor Xr] 225 mg PO DAILY 12/26/18 05/02/19 Pantoprazole Sodium [Protonix] 40 mg PO BID 05/02/19 05/02/19 lamoTRIgine [LaMICtal] 100 mg PO BID 05/02/19 05/02/19 Previous Rx's Medication Instructions Recorded Meclizine [Antivert] 25 mg PO TID #20 tab 05/02/19 traMADol HCl [Ultram] 50 mg PO Q6H PRN #20 tab 11/17/19 Allergies Allergy/AdvReac Type Severity Reaction Status Date / Time No Known Allergies Allergy Verified 11/17/19 15:07 Review of Systems ROS Statement: Those systems with pertinent positive or pertinent negative responses have been documented in the HPI. ROS Other: All systems not noted in ROS Statement are negative. Past Medical History Past Medical History: Thyroid Disorder Additional Past Medical History / Comment(s): cysts on (R) kidney. History of Any Multi-Drug Resistant Organisms: None Reported Past Surgical History: Cholecystectomy, Hysterectomy Additional Past Surgical History / Comment(s): parathyroidectomy Past Psychological History: Bipolar Smoking Status: Current every day smoker Past Alcohol Use History: None Reported Past Drug Use History: None Reported, Opiates, Prescription Drug Abuse General Exam - General Exam Comments Initial Comments: General: The patient is awake and alert, in no distress, and does not appear acutely ill. Neck: The neck is supple, there is no tenderness or JVD. Cardiovascular: There is a regular rate and rhythm. No murmur, rub or gallop is appreciated. Respiratory: Lungs are clear to auscultation, respirations are non-labored, breath sounds are equal. No wheezes, stridor, rales, or rhonchi. Gastrointestinal: Abdomen soft on palpation. Patient does have tenderness to the right flank over the kidney. There is no guarding. No ecchymosis or bruising. Musculoskeletal: Normal ROM, no tenderness. Neurological: A&O x 3. CN II-XII intact, There are no obvious motor or sensory deficits. Coordination appears grossly intact. Speech is normal. Skin: Skin is warm and dry and no rashes or lesions are noted. Psychiatric: Cooperative, appropriate mood & affect, normal judgment. Limitations: no limitations Course Vital Signs 11/17/19 15:07 Temperature 98.6 F Pulse Rate 81 Respiratory 16 Rate Blood Pressure 126/79 O2 Sat by Pulse 98 Oximetry Medical Decision Making - Medical Decision Making Patient reexamined at this time shows no signs of distress is resting covered. CT the abdomen pelvis does show some free fluid in the lower pelvis but there is no solid organ injury. Patient labs been reviewed and did show mildly elevated creatinine 1.3 for this was compared to previous labs where she creatinine was 1.25. Patient x-ray of the ribs is unremarkable. Patient will be discharged home with a short prescription of pain medication. She states she's taken tramadol in the past. She is advised to follow-up family doctor over the next 2 days. Advised return if any symptoms increase worsen or for any other concerns. States understanding and is in agreement with plan. - Lab Data Result diagrams: 11/17/19 15:34 11/17/19 15:34 Lab Results 0211/17/19 11/17/19 Range/Units 15:34 15:34 15:34 WBC 7.1 (3.8-10.6) k/uL RBC 4.66 (3.80-5.40) m/uL Hgb 14.5 (11.4-16.0) gm/dL Hct 42.8 (34.0-46.0) % MCV 91.9 (80.0-100.0) fL MCH 31.1 (25.0-35.0) pg MCHC 33.8 (31.0-37.0) g/dL RDW 12.2 (11.5-15.5) % Plt Count 254 (150-450) k/uL Neutrophils % 73 % Lymphocytes % 17 % Monocytes % 7 % Eosinophils % 0 % Basophils % 2 % Neutrophils # 5.2 (1.3-7.7) k/uL Lymphocytes # 1.2 (1.0-4.8) k/uL Monocytes # 0.5 (0-1.0) k/uL Eosinophils # 0.0 (0-0.7) k/uL Basophils # 0.1 (0-0.2) k/uL Sodium 138 (137-145) mmol/L Potassium 4.2 (3.5-5.1) mmol/L Chloride 107 (98-107) mmol/L Carbon Dioxide 25 (22-30) mmol/L Anion Gap 6 mmol/L BUN 20 H (7-17) mg/dL Creatinine 1.34 H (0.52-1.04) mg/dL Est GFR (CKD-EPI)AfAm 51 (>60 ml/min/1.73 sqM) Est GFR (CKD-EPI)NonAf 44 (>60 ml/min/1.73 sqM) Glucose 94 (74-99) mg/dL Calcium 9.5 (8.4-10.2) mg/dL Total Bilirubin 0.4 (0.2-1.3) mg/dL AST 30 (14-36) U/L ALT 24 (4-34) U/L Alkaline Phosphatase 105 (38-126) U/L Total Protein 6.8 (6.3-8.2) g/dL Albumin 4.2 (3.5-5.0) g/dL Amylase 107 (30-110) U/L Lipase 260 (23-300) U/L Urine Color Urine Appearance (Clear) Urine pH (5.0-8.0) Ur Specific [place] (1.001-1.035) Urine Protein (Negative) Urine Glucose (UA) (Negative) Urine Ketones (Negative) Urine Blood (Negative) Urine Nitrite (Negative) Urine Bilirubin (Negative) Urine Urobilinogen (<2.0) mg/dL Ur Leukocyte Esterase (Negative) Urine HCG, Qual Not Detected (Not Detectd) 11/17/19 Range/Units 15:34 WBC (3.8-10.6) k/uL RBC (3.80-5.40) m/uL Hgb (11.4-16.0) gm/dL Hct (34.0-46.0) % MCV (80.0-100.0) fL MCH (25.0-35.0) pg MCHC (31.0-37.0) g/dL RDW (11.5-15.5) % Plt Count (150-450) k/uL Neutrophils % % Lymphocytes % % Monocytes % % Eosinophils % % Basophils % % Neutrophils # (1.3-7.7) k/uL Lymphocytes # (1.0-4.8) k/uL Monocytes # (0-1.0) k/uL Eosinophils # (0-0.7) k/uL Basophils # (0-0.2) k/uL Sodium (137-145) mmol/L Potassium (3.5-5.1) mmol/L Chloride (98-107) mmol/L Carbon Dioxide (22-30) mmol/L Anion Gap mmol/L BUN (7-17) mg/dL Creatinine (0.52-1.04) mg/dL Est GFR (CKD-EPI)AfAm (>60 ml/min/1.73 sqM) Est GFR (CKD-EPI)NonAf (>60 ml/min/1.73 sqM) Glucose (74-99) mg/dL Calcium (8.4-10.2) mg/dL Total Bilirubin (0.2-1.3) mg/dL AST (14-36) U/L ALT (4-34) U/L Alkaline Phosphatase (38-126) U/L Total Protein (6.3-8.2) g/dL Albumin (3.5-5.0) g/dL Amylase (30-110) U/L Lipase (23-300) U/L Urine Color Light Yellow Urine Appearance Clear (Clear) Urine pH 7.0 (5.0-8.0) Ur Specific [place] 1.014 (1.001-1.035) Urine Protein Negative (Negative) Urine Glucose (UA) Negative (Negative) Urine Ketones Negative (Negative) Urine Blood Negative (Negative) Urine Nitrite Negative (Negative) Urine Bilirubin Negative (Negative) Urine Urobilinogen <2.0 (<2.0) mg/dL Ur Leukocyte Esterase Negative (Negative) Urine HCG, Qual (Not Detectd) Disposition Clinical Impression: Fall, Contusion of rib on right side Disposition: HOME SELF-CARE Condition: Good Instructions (If sedation given, give patient instructions): Rib Contusion (ED) Additional Instructions: Please use medication as discussed. Please follow-up with family doctor in the next 2 days of symptoms have not improved. Please return to emergency room if the symptoms increase or worsen or for any other concerns. Prescriptions: traMADol HCl [Ultram] 50 mg PO Q6H PRN #20 tab PRN Reason: Pain Is patient prescribed a controlled substance at d/c from ED?: Yes If prescribed controlled substance>3 days was MAPS reviewed?: Prescribed <3 Days Referrals: Angel Ansari MD [Primary Care Provider] - 1-2 days Time of Disposition: 16:33
[2019-11-17 16:54] VITALS: BP 142/79; PULSE 78; RESP 18; TEMP 97.9
== END 2019-11-17 16:54 | disposition home or self-care (01) ==
LOC: EC 14:59
DX: S20.211A Contusion of right front wall of thorax, initial encounter (principal); R79.89 Other specified abnormal findings of blood chemistry; F31.9 Bipolar disorder, unspecified; E07.9 Disorder of thyroid, unspecified; F17.200 Nicotine dependence, unspecified, uncomplicated; Z79.890 Hormone replacement therapy; Z79.899 Other long term (current) drug therapy; Z90.49 Acquired absence of other specified parts of digestive tract; Z90.89 Acquired absence of other organs; W01.0XXA Fall on same level from slipping, tripping and stumbling without subsequent striking against object, initial encounter
CPT/HCPCS: 36415; 80053; 82150; 83690; 85025; 81003; 81025; 71101; 74177; 99284; Q9967

== ENCOUNTER 2019-11-27 00:34 | Observation (INO) | payer MEDICARE ==
[2019-11-27] MEDS ORDERED: MAGNESIUM SULFATE-D5W PMX 1 GM in DEXTROSE/WATER 1 100ML.BAG IVPB STA (01:24)
[2019-11-27] MEDS ORDERED: IPRATROPIUM-ALBUTEROL 3 ML NEB INHALATION STA (01:24)
[2019-11-27] MEDS ORDERED: methylPREDNISolone SOD SUCCI 125 MG/2 ML VIAL IV STA (01:24)
[2019-11-27 01:49] LABS: Basophils % (A) 0 %; Eosinophils # (A) 0.1 k/uL (0-0.7); Eosinophils % (A) 0 %; HCT 41.7 % (34.0-46.0); HGB 14.4 gm/dL (11.4-16.0); Lymphocytes # (A) 1.4 k/uL (1.0-4.8); Lymphocytes % (A) 9 %; MCH 31.4 pg (25.0-35.0); MCHC 34.5 g/dL (31.0-37.0); Mean Platelet Volume 7.7; Monocytes # (A) 0.9 k/uL (0-1.0); Monocytes % (A) 6 %; Neutrophils # (A) 12.9 k/uL (1.3-7.7); Neutrophils % (A) 84 %; Platelet Count 276 k/uL (150-450); RBC 4.58 m/uL (3.80-5.40); RDW 12.4 % (11.5-15.5); WBC 15.4 k/uL (3.8-10.6)
[2019-11-27 01:54] LABS: VBG PH 7.4 (7.31-7.41)
[2019-11-27 01:56] LABS: ALT 23 U/L (4-34); AST 49 U/L (14-36); African American GFR (CKD) 75 (>60 ml/min/1.73 sqM); Albumin 4.3 g/dL (3.5-5.0); Alcohol <10 mg/dL; Alkaline Phosphatase 100 U/L (38-126); Anion Gap 8 mmol/L; Blood Urea Nitrogen 26 mg/dL (7-17); Calcium 9.8 mg/dL (8.4-10.2); Carbon Dioxide 23 mmol/L (22-30); Chloride 106 mmol/L (98-107); Glucose 94 mg/dL (74-99); Non-African American GFR(CKD) 65 (>60 ml/min/1.73 sqM); Sodium 137 mmol/L (137-145); Total Bilirubin 0.6 mg/dL (0.2-1.3); Total Protein 7.3 g/dL (6.3-8.2)
[2019-11-27 02:02] LABS: INR 0.9 (<1.2); Prothrombin Time 9.4 sec (9.0-12.0)
[2019-11-27 02:17] LABS: Partial Thromboplastin Time 19.3 sec (22.0-30.0)
--- NOTE | 2019-11-27 02:34 | XR ---
EXAMINATION TYPE: XR chest 2V DATE OF EXAM: 11/27/2019 COMPARISON: 11/17/2019 HISTORY: Difficulty breathing TECHNIQUE: FINDINGS: Heart is normal. Lungs are clear. There is no heart failure. Costophrenic angles are clear. There are no hilar masses. Mediastinum appears normal. There are chest leads. IMPRESSION: No cardiopulmonary disease. No change.
[2019-11-27] MEDS ORDERED: NALOXONE 0.4 MG/ML 1 ML VIAL IV PRN (03:10)
--- NOTE | 2019-11-27 03:10 | ED ---
General Adult HPI - General Chief complaint: Chest Pain Stated complaint: chest pain, trouble breathing Time Seen by Provider: 11/27/19 00:40 Source: patient Mode of arrival: wheelchair Limitations: no limitations - History of Present Illness Initial comments: The patient is a 51-year-old female presents emergency room with reported chest pain since Thursday. The patient states that she has been extremely short of breath. She has a history of COPD. Does not require home oxygen. Has never seen a cash posting clerk. She denies fevers or chills. No sick contacts with similar symptoms. Denies history of DVT or PE. No recent travel or surgeries. States that the pain is pleuritic in nature. She did see her primary care physician who placed her on antibiotics, steroids and an inhaler. She states she's been taking it as directed however hasn't been helping her symptoms. She continues to smoke. Denies headaches or visual changes. No nausea or vomiting. Denies abdominal pain. No calf pain or swelling. No history of congestive heart failure. There are no alleviating, precipitating or modifying factors - Related Data Home Medications Medication Instructions Recorded Confirmed Multivitamins, Thera [Multivitamin 1 tab PO DAILY 05/27/18 11/27/19 (formulary)] clonazePAM [KlonoPIN] 1 mg PO QID PRN 05/27/18 11/27/19 risperiDONE 3 mg PO BID 07/16/18 11/27/19 Ascorbic Acid [Vitamin C] 500 mg PO DAILY 12/26/18 11/27/19 Calcium Carbonate [Calcium] 600 mg PO DAILY 12/26/18 11/27/19 Levothyroxine Sodium [Synthroid] 50 mcg PO DAILY 12/26/18 11/27/19 Venlafaxine HCl ER [Effexor XR] 375 mg PO DAILY 12/26/18 11/27/19 Pantoprazole Sodium [Protonix] 40 mg PO BID 05/02/19 11/27/19 lamoTRIgine [LaMICtal] 100 mg PO BID 05/02/19 11/27/19 Albuterol Inhaler [Ventolin Hfa 1 - 2 puff INHALATION RT-Q4H PRN 11/27/19 11/27/19 Inhaler] Amoxicillin 875 mg PO BID 11/27/19 11/27/19 hydrOXYzine PAMOATE 50 mg PO HS PRN 11/27/19 11/27/19 Previous Rx's Medication Instructions Recorded Umeclidinium Brm/Vilanterol Tr 1 puff INHALATION DAILY #1 device 11/27/19 [Anoro Ellipta 62.5-25 Mcg INH] predniSONE See Taper PO DAILY #30 tab 11/27/19 Allergies Allergy/AdvReac Type Severity Reaction Status Date / Time No Known Allergies Allergy Verified 11/27/19 12:14 Review of Systems ROS Statement: Those systems with pertinent positive or pertinent negative responses have been documented in the HPI. ROS Other: All systems not noted in ROS Statement are negative. Past Medical History Past Medical History: Thyroid Disorder Additional Past Medical History / Comment(s): cysts on (R) kidney. History of Any Multi-Drug Resistant Organisms: None Reported Past Surgical History: Cholecystectomy, Hysterectomy Additional Past Surgical History / Comment(s): parathyroidectomy Past Psychological History: Bipolar Smoking Status: Current every day smoker Past Alcohol Use History: None Reported Past Drug Use History: None Reported, Opiates, Prescription Drug Abuse - Past Family History Father Family Medical History: Coronary Artery Disease (CAD) Mother Family Medical History: Coronary Artery Disease (CAD) General Exam Limitations: no limitations General appearance: alert, cachectic Head exam: Present: atraumatic, normocephalic, normal inspection Eye exam: Present: normal appearance, PERRL, EOMI. Absent: scleral icterus, conjunctival injection, periorbital swelling ENT exam: Present: normal exam, mucous membranes moist Neck exam: Present: normal inspection. Absent: tenderness, meningismus, lymphadenopathy Respiratory exam: Present: wheezes, prolonged expiratory. Absent: respiratory distress, rales, rhonchi, stridor Cardiovascular Exam: Present: regular rate, normal rhythm, normal heart sounds. Absent: systolic murmur, diastolic murmur, rubs, gallop, clicks GI/Abdominal exam: Present: soft, normal bowel sounds. Absent: distended, tenderness, guarding, rebound, rigid Extremities exam: Present: normal inspection, full ROM, normal capillary refill. Absent: tenderness, pedal edema, joint swelling, calf tenderness Back exam: Present: normal inspection Neurological exam: Present: alert, oriented X3, CN II-XII intact Psychiatric exam: Present: normal affect, normal mood Skin exam: Present: warm, dry, intact, normal color. Absent: rash Course Vital Signs 11/27/19 11/27/19 11/27/19 00:37 01:39 01:47 Temperature 97.8 F Pulse Rate 70 64 69 Respiratory 22 Rate Blood Pressure 100/63 O2 Sat by Pulse 98 Oximetry 11/27/19 03:17 Temperature Pulse Rate 63 Respiratory 18 Rate Blood Pressure 108/61 O2 Sat by Pulse 100 Oximetry EKG Findings - EKG Comments: EKG Findings:: EKG demonstrates a normal sinus rhythm of 63. MA interval 160. QRS 108. QTC of 433. Inverted T-wave in lead 3. No acute ST segment elevations. Medical Decision Making - Medical Decision Making Upon arrival the patient was placed in room 2. A thorough history and physical exam was performed. Peripheral IV was established. The patient was given 125 grams of Solu-Medrol, 1 g of magnesium and a DuoNeb breathing treatment. Laboratory studies were conducted. White blood cell count of 16.4. Patient seemed somewhat sedated on physical examination reported low blood gas. CO2 is 41. Troponin is negative. Alcohol less than 10. Influenza A/B are not detected. Chest x-ray demonstrates no acute process. I discussed results with the patient. I did reevaluate her. She saturates 98% on 2 L. As the patient is feeling outpatient treatment I did recommend hospital admission for which he did agree. The case is discussed with Dr. Ansari who accepted admission for the patient. I will schedule DuoNeb breathing treatments as well as steroids. The patient was then transferred to the floor in stable condition - Lab Data Result diagrams: 11/27/19 00:53 11/27/19 00:53 Lab Results 11/27/19 11/27/19 11/27/19 Range/Units 00:53 00:53 00:53 WBC 15.4 H (3.8-10.6) k/uL RBC 4.58 (3.80-5.40) m/uL Hgb 14.4 (11.4-16.0) gm/dL Hct 41.7 (34.0-46.0) % MCV 91.0 (80.0-100.0) fL MCH 31.4 (25.0-35.0) pg MCHC 34.5 (31.0-37.0) g/dL RDW 12.4 (11.5-15.5) % Plt Count 276 (150-450) k/uL Neutrophils % 84 % Lymphocytes % 9 % Monocytes % 6 % Eosinophils % 0 % Basophils % 0 % Neutrophils # 12.9 H (1.3-7.7) k/uL Lymphocytes # 1.4 (1.0-4.8) k/uL Monocytes # 0.9 (0-1.0) k/uL Eosinophils # 0.1 (0-0.7) k/uL Basophils # 0.0 (0-0.2) k/uL PT (9.0-12.0) sec INR (<1.2) APTT (22.0-30.0) sec VBG pH (7.31-7.41) VBG pCO2 (37-51) mmHg VBG HCO3 (24-28) mmol/L Sodium 137 (137-145) mmol/L Potassium 5.0 (3.5-5.1) mmol/L Chloride 106 (98-107) mmol/L Carbon Dioxide 23 (22-30) mmol/L Anion Gap 8 mmol/L BUN 26 H (7-17) mg/dL Creatinine 0.96 (0.52-1.04) mg/dL Est GFR (CKD-EPI)AfAm 75 (>60 ml/min/1.73 sqM) Est GFR (CKD-EPI)NonAf 65 (>60 ml/min/1.73 sqM) Glucose 94 (74-99) mg/dL Plasma Lactic Acid Jorge 1.5 (0.7-2.0) mmol/L Calcium 9.8 (8.4-10.2) mg/dL Total Bilirubin 0.6 (0.2-1.3) mg/dL AST 49 H (14-36) U/L ALT 23 (4-34) U/L Alkaline Phosphatase 100 (38-126) U/L Troponin I (0.000-0.034) ng/mL Total Protein 7.3 (6.3-8.2) g/dL Albumin 4.3 (3.5-5.0) g/dL Serum Alcohol <10 mg/dL Influenza Type A RNA (Not Detectd) Influenza Type B (PCR) (Not Detectd) 11/27/19 11/27/19 11/27/19 Range/Units 00:53 00:53 01:40 WBC (3.8-10.6) k/uL RBC (3.80-5.40) m/uL Hgb (11.4-16.0) gm/dL Hct (34.0-46.0) % MCV (80.0-100.0) fL MCH (25.0-35.0) pg MCHC (31.0-37.0) g/dL RDW (11.5-15.5) % Plt Count (150-450) k/uL Neutrophils % % Lymphocytes % % Monocytes % % Eosinophils % % Basophils % % Neutrophils # (1.3-7.7) k/uL Lymphocytes # (1.0-4.8) k/uL Monocytes # (0-1.0) k/uL Eosinophils # (0-0.7) k/uL Basophils # (0-0.2) k/uL PT 9.4 (9.0-12.0) sec INR 0.9 (<1.2) APTT 19.3 L (22.0-30.0) sec VBG pH 7.40 (7.31-7.41) VBG pCO2 41 (37-51) mmHg VBG HCO3 24 (24-28) mmol/L Sodium (137-145) mmol/L Potassium (3.5-5.1) mmol/L Chloride (98-107) mmol/L Carbon Dioxide (22-30) mmol/L Anion Gap mmol/L BUN (7-17) mg/dL Creatinine (0.52-1.04) mg/dL Est GFR (CKD-EPI)AfAm (>60 ml/min/1.73 sqM) Est GFR (CKD-EPI)NonAf (>60 ml/min/1.73 sqM) Glucose (74-99) mg/dL Plasma Lactic Acid Jorge (0.7-2.0) mmol/L Calcium (8.4-10.2) mg/dL Total Bilirubin (0.2-1.3) mg/dL AST (14-36) U/L ALT (4-34) U/L Alkaline Phosphatase (38-126) U/L Troponin I <0.012 (0.000-0.034) ng/mL Total Protein (6.3-8.2) g/dL Albumin (3.5-5.0) g/dL Serum Alcohol mg/dL Influenza Type A RNA (Not Detectd) Influenza Type B (PCR) (Not Detectd) 11/27/19 Range/Units 01:59 WBC (3.8-10.6) k/uL RBC (3.80-5.40) m/uL Hgb (11.4-16.0) gm/dL Hct (34.0-46.0) % MCV (80.0-100.0) fL MCH (25.0-35.0) pg MCHC (31.0-37.0) g/dL RDW (11.5-15.5) % Plt Count (150-450) k/uL Neutrophils % % Lymphocytes % % Monocytes % % Eosinophils % % Basophils % % Neutrophils # (1.3-7.7) k/uL Lymphocytes # (1.0-4.8) k/uL Monocytes # (0-1.0) k/uL Eosinophils # (0-0.7) k/uL Basophils # (0-0.2) k/uL PT (9.0-12.0) sec INR (<1.2) APTT (22.0-30.0) sec VBG pH (7.31-7.41) VBG pCO2 (37-51) mmHg VBG HCO3 (24-28) mmol/L Sodium (137-145) mmol/L Potassium (3.5-5.1) mmol/L Chloride (98-107) mmol/L Carbon Dioxide (22-30) mmol/L Anion Gap mmol/L BUN (7-17) mg/dL Creatinine (0.52-1.04) mg/dL Est GFR (CKD-EPI)AfAm (>60 ml/min/1.73 sqM) Est GFR (CKD-EPI)NonAf (>60 ml/min/1.73 sqM) Glucose (74-99) mg/dL Plasma Lactic Acid Jorge (0.7-2.0) mmol/L Calcium (8.4-10.2) mg/dL Total Bilirubin (0.2-1.3) mg/dL AST (14-36) U/L ALT (4-34) U/L Alkaline Phosphatase (38-126) U/L Troponin I (0.000-0.034) ng/mL Total Protein (6.3-8.2) g/dL Albumin (3.5-5.0) g/dL Serum Alcohol mg/dL Influenza Type A RNA Not Detected (Not Detectd) Influenza Type B (PCR) Not Detected (Not Detectd) Disposition Clinical Impression: COPD with acute exacerbation, Failure of outpatient treatment Disposition: ADMITTED IP TO THIS HOSP Condition: Fair Is patient prescribed a controlled substance at d/c from ED?: No Decision to Admit Reason: Admit from EC Decision Date: 11/27/19 Decision Time: 03:10
[2019-11-27] MEDS ORDERED: traMADol 50 MG TAB PO PRN (03:11)
[2019-11-27 03:18] VITALS: RESP 18
[2019-11-27 06:50] LABS: Glucose,Whole Blood 115 mg/dL (75-99)
[2019-11-27] MEDS: IPRATROPIUM-ALBUTEROL 3 ML NEB INHALATION SCH ×3 (07:35→13:20)
[2019-11-27] MEDS ORDERED: methylPREDNISolone SOD SUCCI 40 MG/ML 1 ML VIAL IV SCH (08:00)
[2019-11-27] MEDS: INSULIN ASPART (NovoLOG) 100 UNIT/ML VIAL SQ SCH ×2 (08:22→12:45)
[2019-11-27] MEDS ORDERED: LEVOTHYROXINE 50 MCG TAB PO SCH (09:00)
[2019-11-27] MEDS ORDERED: lamoTRIgine 100 MG TAB PO SCH (09:00)
[2019-11-27] MEDS ORDERED: risperiDONE 1 MG TAB PO SCH (09:00)
[2019-11-27] MEDS ORDERED: PANTOPRAZOLE 40 MG TABLET PO SCH (09:00)
[2019-11-27] MEDS ORDERED: clonazePAM 1 MG TAB PO PRN (09:00)
[2019-11-27] MEDS ORDERED: VENLAFAXINE HCL ER 75 MG CAP PO SCH (09:00)
[2019-11-27 11:46] LABS: Glucose,Whole Blood 117 mg/dL (75-99)
--- NOTE | 2019-11-27 12:03 | P.HPIM ---
History of Present Illness H&P Date: 11/27/19 Chief Complaint: Shortness of breath This is a 59-year-old white female well-known the practice. She is a smoker. She reports on Thursday she began experiencing a cough and congestion. She was seen in the office on Thursday and given amoxicillin and some prednisone. She reports she did not improve and continued to worsen. She called the on-call patient spoke with me yesterday, indicating she was short of breath and just not feeling well. She proceed emergency room. She is diagnosed with acute exacerbation COPD, started on updrafts and steroids. She indicates she is feeling better this morning. She denies any chest pains or pressures. Shortness breath with exertion only. She is on 2 L of oxygen via nasal cannula. Denies any nausea or vomiting. Review of Systems All systems: negative Past Medical History Past Medical History: COPD, GERD/Reflux, Thyroid Disorder Additional Past Medical History / Comment(s): cysts on (R) kidney. History of Any Multi-Drug Resistant Organisms: None Reported Past Surgical History: Cholecystectomy, Hysterectomy Additional Past Surgical History / Comment(s): parathyroidectomy Past Anesthesia/Blood Transfusion Reactions: No Reported Reaction Past Psychological History: Bipolar Smoking Status: Current every day smoker Past Alcohol Use History: None Reported Past Drug Use History: None Reported, Opiates, Prescription Drug Abuse - Past Family History Father Family Medical History: Coronary Artery Disease (CAD) Mother Family Medical History: Coronary Artery Disease (CAD) Medications and Allergies Home Medications Medication Instructions Recorded Confirmed Type Multivitamins, Thera [Multivitamin 1 tab PO DAILY 05/27/18 11/27/19 History (formulary)] clonazePAM [KlonoPIN] 1 mg PO QID PRN 05/27/18 11/27/19 History risperiDONE 3 mg PO BID 07/16/18 11/27/19 History Ascorbic Acid [Vitamin C] 500 mg PO DAILY 12/26/18 11/27/19 History Calcium Carbonate [Calcium] 600 mg PO DAILY 12/26/18 11/27/19 History Levothyroxine Sodium [Synthroid] 50 mcg PO DAILY 12/26/18 11/27/19 History Venlafaxine HCl ER [Effexor Xr] 375 mg PO DAILY 12/26/18 11/27/19 History Pantoprazole Sodium [Protonix] 40 mg PO BID 05/02/19 11/27/19 History lamoTRIgine [LaMICtal] 100 mg PO BID 05/02/19 11/27/19 History Allergies Allergy/AdvReac Type Severity Reaction Status Date / Time No Known Allergies Allergy Verified 11/17/19 15:07 Physical Exam Vitals: Vital Signs Temp Pulse Pulse Resp BP BP BP 11/27/19 07:43 60 11/27/19 07:35 60 11/27/19 07:24 98.2 F 66 18 119/75 11/27/19 04:00 97.6 F 62 18 104/61 11/27/19 03:17 63 18 108/61 11/27/19 01:47 69 11/27/19 01:39 64 11/27/19 00:37 97.8 F 70 22 100/63 Pulse Ox 11/27/19 07:43 11/27/19 07:35 11/27/19 07:24 98 11/27/19 04:00 98 11/27/19 03:17 100 11/27/19 01:47 11/27/19 01:39 11/27/19 00:37 98 Intake and Output 11/26/19 11/27/19 11/27/19 22:59 06:59 14:59 Other: Voiding Method Toilet # Voids 0 Weight 65.771 kg GENERAL: Pleasant 59-year-old looks her stated age, nasal cannula present, no obvious distress, resting in bed. HEAD: Atraumatic, normocephalic. EYES: Pupils equal round and reactive to light, extraocular movements intact, sclera anicteric, conjunctiva are normal. ENT:nares patent, oropharynx clear without exudates. Moist mucous membranes. NECK: Normal range of motion, supple without lymphadenopathy or JVD, no thyromegaly LUNGS: Breath sounds coarse bilaterally with rhonchi present, there is occasional expiratory wheezing. No rales HEART: Regular rate and rhythm without murmurs, rubs or gallops.S1S2 Normal ABDOMEN: Soft, nontender, normoactive bowel sounds. No guarding, no rebound. No masses appreciated. EXTREMITIES: Normal range of motion, no pitting or edema. No clubbing or cyanosis. NEUROLOGICAL: Cranial nerves II through XII grossly intact. Normal speech, normal gait. PSYCH: Normal mood, normal affect. SKIN: Warm, Dry, normal turgor, no rashes or lesions noted. Results CBC & Chem 7: 11/27/19 00:53 11/27/19 00:53 Labs: Abnormal Lab Results - Last 24 Hours (Table) 11/27/19 11/27/19 11/27/19 Range/Units 00:53 00:53 00:53 WBC 15.4 H (3.8-10.6) k/uL Neutrophils # 12.9 H (1.3-7.7) k/uL APTT 19.3 L (22.0-30.0) sec BUN 26 H (7-17) mg/dL POC Glucose (mg/dL) (75-99) mg/dL AST 49 H (14-36) U/L 11/27/19 11/27/19 Range/Units 06:49 11:45 WBC (3.8-10.6) k/uL Neutrophils # (1.3-7.7) k/uL APTT (22.0-30.0) sec BUN (7-17) mg/dL POC Glucose (mg/dL) 115 H 117 H (75-99) mg/dL AST (14-36) U/L Chest x-ray: report reviewed Thrombosis Risk Factor Assmnt - DVT/VTE Prophylaxis DVT/VTE Prophylaxis: Pharmacologic Prophylaxis ordered - Choose All That Apply Any of the Below Risk Factors Present?: Yes Each Factor Represents 1 point: Abnormal pulmonary function (COPD), Acute [place], Age 41-60 years, Obesity (BMI >25) Other Risk Factors: No Other congenital or acquired thrombophilia - If yes, enter type in comment: No Thrombosis Risk Factor Assessment Total Risk Factor Score: 4 Thrombosis Risk Factor Assessment Level: Moderate Risk Assessment and Plan (1) COPD with acute exacerbation Current Visit: Yes Status: Acute Priority: High Onset Date: ~11/21/19 Code(s): J44.1 - CHRONIC OBSTRUCTIVE PULMONARY DISEASE W (ACUTE) EXACERBATION SNOMED Code(s): 916083317 (2) Failure of outpatient treatment Current Visit: Yes Status: Acute Onset Date: ~11/25/19 Code(s): Z78.9 - OTHER SPECIFIED HEALTH STATUS SNOMED Code(s): 524736418 (3) Tobacco abuse Current Visit: Yes Status: Chronic Code(s): Z72.0 - TOBACCO USE SNOMED Code(s): 655438785 (4) Chronic GERD Current Visit: Yes Status: Chronic Code(s): K21.9 - GASTRO-ESOPHAGEAL REFLUX DISEASE WITHOUT ESOPHAGITIS SNOMED Code(s): 946955941 (5) Hypothyroidism Current Visit: Yes Status: Chronic Code(s): E03.9 - HYPOTHYROIDISM, UNSPECIFIED SNOMED Code(s): 28221088 (6) Bipolar 1 disorder Current Visit: Yes Status: Chronic Code(s): F31.9 - BIPOLAR DISORDER, UNSPECIFIED SNOMED Code(s): 196512576 Plan: Continues to have rhonchi, she appears quite a bit better. She'll continue on Solu-Medrol, and DuoNeb updrafts. Continue NovoLog scale for monitoring. She'll continue on Lamictal, Klonopin, Risperdal, venlafaxine for her bipolar. Neurologic continue Protonix for GERD. We'll add subcutaneous heparin. Continue on her levothyroxine for hypothyroidism. Depending on her status and oxygenation, she maybe will be discharged later today. Otherwise, we'll plan on her being reevaluated next 24 hours.
[2019-11-27 12:05] VITALS: BP 110/66; TEMP 98.9
--- NOTE | 2019-11-27 12:36 | P.DS ---
Providers Date of admission: 11/27/19 03:10 Expected date of discharge: 11/27/19 Attending physician: Angel Ansari Primary care physician: Angel Ansari - Discharge Diagnosis(es) (1) COPD with acute exacerbation Current Visit: Yes Status: Acute Priority: High Onset Date: ~11/21/19 (2) Failure of outpatient treatment Current Visit: Yes Status: Acute Onset Date: ~11/25/19 (3) Tobacco abuse Current Visit: Yes Status: Chronic (4) Chronic GERD Current Visit: Yes Status: Chronic (5) Hypothyroidism Current Visit: Yes Status: Chronic (6) Bipolar 1 disorder Current Visit: Yes Status: Chronic Hospital Course: This is a 59-year-old white female well-known the practice. She is a smoker. She reports on Thursday she began experiencing a cough and congestion. She was seen in the office on Thursday and given amoxicillin and some prednisone. She reports she did not improve and continued to worsen. She called the on-call patient spoke with me yesterday, indicating she was short of breath and just not feeling well. She proceed emergency room. She is diagnosed with acute exacerbation COPD, started on updrafts and steroids. She indicates she is feeling better this morning. She denies any chest pains or pressures. Shortness breath with exertion only. She is on 2 L of oxygen via nasal cannula. Denies any nausea or vomiting. 11/27/2019: Addendum patient on room air maintain oxygen saturations with ambulation [id number]%. She feels quite a bit better and is requesting discharge home. She indicates she'll follow-up in the office in the next 24 hours. Patient Condition at Discharge: Fair Plan - Discharge Summary Discharge Rx Participant: No New Discharge Prescriptions: New Umeclidinium Brm/Vilanterol Tr [Anoro Ellipta 62.5-25 Mcg INH] 1 puff INHALATION DAILY #1 device Continue clonazePAM [KlonoPIN] 1 mg PO QID PRN PRN Reason: Anxiety Multivitamins, Thera [Multivitamin (formulary)] 1 tab PO DAILY risperiDONE 3 mg PO BID Venlafaxine HCl ER [Effexor XR] 375 mg PO DAILY Levothyroxine Sodium [Synthroid] 50 mcg PO DAILY Ascorbic Acid [Vitamin C] 500 mg PO DAILY Calcium Carbonate [Calcium] 600 mg PO DAILY lamoTRIgine [LaMICtal] 100 mg PO BID Pantoprazole Sodium [Protonix] 40 mg PO BID Albuterol Inhaler [Ventolin Hfa Inhaler] 1 - 2 puff INHALATION RT-Q4H PRN PRN Reason: Shortness Of Breath Amoxicillin 875 mg PO BID hydrOXYzine PAMOATE 50 mg PO HS PRN PRN Reason: SLEEP predniSONE See Taper PO DAILY #30 tab Discharge Medication List Multivitamins, Thera [Multivitamin (formulary)] 1 tab PO DAILY 05/27/18 [Histor y] clonazePAM [KlonoPIN] 1 mg PO QID PRN 05/27/18 [History] risperiDONE 3 mg PO BID 07/16/18 [History] Ascorbic Acid [Vitamin C] 500 mg PO DAILY 12/26/18 [History] Calcium Carbonate [Calcium] 600 mg PO DAILY 12/26/18 [History] Levothyroxine Sodium [Synthroid] 50 mcg PO DAILY 12/26/18 [History] Venlafaxine HCl ER [Effexor XR] 375 mg PO DAILY 12/26/18 [History] Pantoprazole Sodium [Protonix] 40 mg PO BID 05/02/19 [History] lamoTRIgine [LaMICtal] 100 mg PO BID 05/02/19 [History] Albuterol Inhaler [Ventolin Hfa Inhaler] 1 - 2 puff INHALATION RT-Q4H PRN 11/27/19 [History] Amoxicillin 875 mg PO BID 11/27/19 [History] Umeclidinium Brm/Vilanterol Tr [Anoro Ellipta 62.5-25 Mcg INH] 1 puff INHALATION DAILY #1 device 11/27/19 [Rx] hydrOXYzine PAMOATE 50 mg PO HS PRN 11/27/19 [History] predniSONE See Taper PO DAILY #30 tab 11/27/19 [Rx] Follow up Appointment(s)/Referral(s): Angel Ansari MD [Primary Care Provider] - 1-2 days Discharge Disposition: HOME SELF-CARE
[2019-11-27 13:23] VITALS: PULSE 64
[2019-11-27] MEDS ORDERED: HEPARIN SODIUM,PORCINE 5,000 UNIT/ML 1 ML VIAL SQ SCH (16:00)
== END 2019-11-27 13:47 | disposition home or self-care (01) ==
LOC: EC 00:34 → 1SOBS 03:10
PROVIDERS: ADMIT Family Medicine; ATTEND Family Medicine
DX: J44.1 Chronic obstructive pulmonary disease with (acute) exacerbation (principal); F17.200 Nicotine dependence, unspecified, uncomplicated; K21.9 Gastro-esophageal reflux disease without esophagitis; E03.9 Hypothyroidism, unspecified; Z90.710 Acquired absence of both cervix and uterus; F31.9 Bipolar disorder, unspecified; N28.1 Cyst of kidney, acquired; Z79.899 Other long term (current) drug therapy; Z79.890 Hormone replacement therapy; Z79.51 Long term (current) use of inhaled steroids; Z79.2 Long term (current) use of antibiotics; Z79.52 Long term (current) use of systemic steroids; Z82.49 Family history of ischemic heart disease and other diseases of the circulatory system
CPT/HCPCS: 96376; 96365; 96375; 99285; 36415; 94640 ×2; 93005; 80053; 82803; 83605; 84484; 85025; 85610; 85730; 87502; 71046; G0378; G0480; J2920; J2930; J3475; 80320

== ENCOUNTER 2019-12-12 12:04 | Emergency (ER) | payer OTHER, MEDICARE ==
[2019-12-12 12:33] VITALS: BP 118/70; PULSE 85; RESP 20; TEMP 98.3
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
== END 2019-12-12 13:53 | disposition home or self-care (01) ==
LOC: EC 12:04
DX: M54.2 Cervicalgia (principal); S09.90XA Unspecified injury of head, initial encounter; F31.9 Bipolar disorder, unspecified; E07.9 Disorder of thyroid, unspecified; F17.200 Nicotine dependence, unspecified, uncomplicated; Z79.890 Hormone replacement therapy; Z79.899 Other long term (current) drug therapy; V43.52XA Car driver injured in collision with other type car in traffic accident, initial encounter; Y92.410 Unspecified street and highway as the place of occurrence of the external cause
CPT/HCPCS: 70450; 72125; 99284

== ENCOUNTER 2020-07-05 13:19 | Emergency (ER) | payer MEDICARE ==
[2020-07-05] MEDS ORDERED: ONDANSETRON 4 MG/2 ML VIAL IVP STA (14:17)
[2020-07-05] MEDS ORDERED: SODIUM CHLORIDE 0.9% 1,000 ML IV STA (14:17)
[2020-07-05] MEDS ORDERED: MAG HYDROX/AL HYDROX/SIMETH 30 ML, HYOSCYAMINE ELIXIR 10 ML, LIDOCAINE VISCOUS 2% 10 ML PO STA ×3 (14:18)
[2020-07-05] MEDS ORDERED: FAMOTIDINE 20 MG/2 ML VIAL IV STA (14:18)
--- NOTE | 2020-07-05 14:39 | ED ---
General Adult HPI - General Chief complaint: Abdominal Pain Stated complaint: Abdominal Pain Time Seen by Provider: 07/05/20 13:56 Source: patient, RN notes reviewed Mode of arrival: ambulatory Limitations: no limitations - History of Present Illness Initial comments: 60-year-old female presents to the emergency room for a chief complaint of abdominal pain. Patient states she has had upper abdominal pain for the past 5 days. She has a history of cholecystectomy. Patient reports that eating seems to make this worse. States that not eating makes it better. Patient does have nausea but does not have any vomiting. She does not have diarrhea. She did have some dark stools the past few days but states that she has been taking Pepto-Bismol. Patient saw her doctor yesterday who told her if things are getting worse to come to the ER. Patient does not have any radiating pain or chest pain. No shortness of breath.Patient has no other complaints at this time including shortness of breath, chest pain, vomiting, headache, or visual changes. - Related Data Home Medications Medication Instructions Recorded Confirmed Multivitamins, Thera [Multivitamin 1 tab PO DAILY 05/27/18 11/27/19 (formulary)] clonazePAM [KlonoPIN] 1 mg PO QID PRN 05/27/18 11/27/19 risperiDONE 3 mg PO BID 07/16/18 11/27/19 Ascorbic Acid [Vitamin C] 500 mg PO DAILY 12/26/18 11/27/19 Calcium Carbonate [Calcium] 600 mg PO DAILY 12/26/18 11/27/19 Levothyroxine Sodium [Synthroid] 50 mcg PO DAILY 12/26/18 11/27/19 Venlafaxine HCl ER [Effexor XR] 375 mg PO DAILY 12/26/18 11/27/19 Pantoprazole Sodium [Protonix] 40 mg PO BID 05/02/19 11/27/19 lamoTRIgine [LaMICtal] 100 mg PO BID 05/02/19 11/27/19 Albuterol Inhaler (Mhu) [Ventolin 1 - 2 puff INHALATION RT-Q4H PRN 11/27/19 11/27/19 Hfa Inhaler (Mhu)] Amoxicillin 875 mg PO BID 11/27/19 11/27/19 hydrOXYzine pamoate [hydrOXYzine 50 mg PO HS PRN 11/27/19 11/27/19 PAMOATE] Previous Rx's Medication Instructions Recorded Umeclidinium Brm/Vilanterol Tr 1 puff INHALATION DAILY #1 device 11/27/19 [Anoro Ellipta 62.5-25 Mcg INH] predniSONE See Taper PO DAILY #30 tab 11/27/19 Famotidine [Pepcid] 20 mg PO BID #30 tablet 07/05/20 Allergies Allergy/AdvReac Type Severity Reaction Status Date / Time No Known Allergies Allergy Verified 07/05/20 13:28 Review of Systems ROS Statement: Those systems with pertinent positive or pertinent negative responses have been documented in the HPI. ROS Other: All systems not noted in ROS Statement are negative. Past Medical History Past Medical History: Thyroid Disorder Additional Past Medical History / Comment(s): cysts on (R) kidney. History of Any Multi-Drug Resistant Organisms: None Reported Past Surgical History: Cholecystectomy, Hysterectomy Additional Past Surgical History / Comment(s): parathyroidectomy Past Anesthesia/Blood Transfusion Reactions: No Reported Reaction Past Psychological History: Bipolar Smoking Status: Current every day smoker Past Alcohol Use History: None Reported Past Drug Use History: None Reported, Opiates, Prescription Drug Abuse - Past Family History Father Family Medical History: Coronary Artery Disease (CAD) Mother Family Medical History: Coronary Artery Disease (CAD) General Exam Limitations: no limitations General appearance: alert, in no apparent distress Head exam: Present: atraumatic, normocephalic, normal inspection Eye exam: Present: normal appearance, PERRL, EOMI. Absent: scleral icterus, conjunctival injection, periorbital swelling ENT exam: Present: normal exam, mucous membranes moist Neck exam: Present: normal inspection, full ROM. Absent: tenderness, meningismus, lymphadenopathy Respiratory exam: Present: normal lung sounds bilaterally. Absent: respiratory distress, wheezes, rales, rhonchi, stridor Cardiovascular Exam: Present: regular rate, normal rhythm, normal heart sounds. Absent: systolic murmur, diastolic murmur, rubs, gallop, clicks GI/Abdominal exam: Present: soft, tenderness (Mild tenderness of the epigastric area without guarding or rebound. No lower abdominal tenderness.), normal bowel sounds. Absent: distended, guarding, rebound, rigid Neurological exam: Present: alert Course Vital Signs 07/05/20 07/05/20 07/05/20 13:23 14:50 15:00 Temperature 97.5 F L 98.0 F Pulse Rate 84 63 62 Respiratory 16 16 17 Rate Blood Pressure 109/72 123/94 O2 Sat by Pulse 97 97 Oximetry 07/05/20 07/05/20 07/05/20 15:30 16:00 16:30 Temperature Pulse Rate 70 72 64 Respiratory 19 18 19 Rate Blood Pressure 110/71 128/76 130/83 O2 Sat by Pulse 98 97 99 Oximetry 07/05/20 07/05/20 17:00 17:30 Temperature 98.2 F Pulse Rate 71 64 Respiratory 17 18 Rate Blood Pressure 130/83 117/79 O2 Sat by Pulse 97 97 Oximetry EKG Findings - EKG Comments: EKG Findings:: Normal sinus rhythm, ventricular rate 66, CO interval 186, QTc 442 Medical Decision Making - Medical Decision Making Vitals are stable. Patient reports pain after she eats for the past 2 weeks. She does have a history of gastric ulcers. CBC is unremarkable. CMP shows evidence of dehydration with an elevated creatinine level. Minimal transaminitis which appears to be chronic. Troponin is negative. X-ray KUB shows a normal abdomen. Urinalysis is negative. No free air under the diaphragm. Occult blood is negative. Patient was given GI cocktail and Pepcid and had significant improvement in pain. Patient has almost resolved. At this time patient will be discharged home to follow-up with primary care. She has an appointment with GI this month. She will return here for any worsening symptoms.I discussed this case with attending Dr. Carson who agrees with this assessment and treatment plan. - Lab Data Result diagrams: 07/05/20 14:54 07/05/20 14:55 Lab Results 07/05/20 07/05/20 07/05/20 Range/Units 14:54 14:55 14:55 WBC 12.3 H (3.8-10.6) k/uL RBC 4.99 (3.80-5.40) m/uL Hgb 14.9 (11.4-16.0) gm/dL Hct 44.6 (34.0-46.0) % MCV 89.4 (80.0-100.0) fL MCH 29.9 (25.0-35.0) pg MCHC 33.5 (31.0-37.0) g/dL RDW 12.5 (11.5-15.5) % Plt Count 248 (150-450) k/uL Neutrophils % 82 % Lymphocytes % 13 % Monocytes % 4 % Eosinophils % 0 % Basophils % 0 % Neutrophils # 10.1 H (1.3-7.7) k/uL Lymphocytes # 1.6 (1.0-4.8) k/uL Monocytes # 0.5 (0-1.0) k/uL Eosinophils # 0.0 (0-0.7) k/uL Basophils # 0.0 (0-0.2) k/uL Sodium 138 (137-145) mmol/L Potassium 4.5 (3.5-5.1) mmol/L Chloride 107 (98-107) mmol/L Carbon Dioxide 24 (22-30) mmol/L Anion Gap 7 mmol/L BUN 22 H (7-17) mg/dL Creatinine 1.23 H (0.52-1.04) mg/dL Est GFR (CKD-EPI)AfAm 56 (>60 ml/min/1.73 sqM) Est GFR (CKD-EPI)NonAf 48 (>60 ml/min/1.73 sqM) Glucose 82 (74-99) mg/dL Calcium 10.3 H (8.4-10.2) mg/dL Total Bilirubin 0.6 (0.2-1.3) mg/dL AST 42 H (14-36) U/L ALT 48 H (4-34) U/L Alkaline Phosphatase 106 (38-126) U/L Troponin I <0.012 (0.000-0.034) ng/mL Total Protein 7.0 (6.3-8.2) g/dL Albumin 4.5 (3.5-5.0) g/dL Amylase 101 (30-110) U/L Lipase 232 (23-300) U/L Urine Color Urine Appearance (Clear) Urine pH (5.0-8.0) Ur Specific [place] (1.001-1.035) Urine Protein (Negative) Urine Glucose (UA) (Negative) Urine Ketones (Negative) Urine Blood (Negative) Urine Nitrite (Negative) Urine Bilirubin (Negative) Urine Urobilinogen (<2.0) mg/dL Ur Leukocyte Esterase (Negative) Stool Occult Blood (Negative) 07/05/20 07/05/20 Range/Units 16:24 16:25 WBC (3.8-10.6) k/uL RBC (3.80-5.40) m/uL Hgb (11.4-16.0) gm/dL Hct (34.0-46.0) % MCV (80.0-100.0) fL MCH (25.0-35.0) pg MCHC (31.0-37.0) g/dL RDW (11.5-15.5) % Plt Count (150-450) k/uL Neutrophils % % Lymphocytes % % Monocytes % % Eosinophils % % Basophils % % Neutrophils # (1.3-7.7) k/uL Lymphocytes # (1.0-4.8) k/uL Monocytes # (0-1.0) k/uL Eosinophils # (0-0.7) k/uL Basophils # (0-0.2) k/uL Sodium (137-145) mmol/L Potassium (3.5-5.1) mmol/L Chloride (98-107) mmol/L Carbon Dioxide (22-30) mmol/L Anion Gap mmol/L BUN (7-17) mg/dL Creatinine (0.52-1.04) mg/dL Est GFR (CKD-EPI)AfAm (>60 ml/min/1.73 sqM) Est GFR (CKD-EPI)NonAf (>60 ml/min/1.73 sqM) Glucose (74-99) mg/dL Calcium (8.4-10.2) mg/dL Total Bilirubin (0.2-1.3) mg/dL AST (14-36) U/L ALT (4-34) U/L Alkaline Phosphatase (38-126) U/L Troponin I (0.000-0.034) ng/mL Total Protein (6.3-8.2) g/dL Albumin (3.5-5.0) g/dL Amylase (30-110) U/L Lipase (23-300) U/L Urine Color Light Yellow Urine Appearance Clear (Clear) Urine pH 5.5 (5.0-8.0) Ur Specific [place] 1.007 (1.001-1.035) Urine Protein Negative (Negative) Urine Glucose (UA) Negative (Negative) Urine Ketones Negative (Negative) Urine Blood Negative (Negative) Urine Nitrite Negative (Negative) Urine Bilirubin Negative (Negative) Urine Urobilinogen <2.0 (<2.0) mg/dL Ur Leukocyte Esterase Negative (Negative) Stool Occult Blood Negative (Negative) Disposition Clinical Impression: Abdominal pain Disposition: HOME SELF-CARE Condition: Good Instructions (If sedation given, give patient instructions): Abdominal Pain (ED) Additional Instructions: Please take medication as directed. Follow up with GI in 1-2 days. You may benefit from a scope. If you've any worsening symptoms return to the emergency room. Prescriptions: Famotidine [Pepcid] 20 mg PO BID #30 tablet Is patient prescribed a controlled substance at d/c from ED?: No Referrals: Angel Ansari MD [Primary Care Provider] - 1-2 days Adelita Bonilla MD [STAFF PHYSICIAN] - 1-2 days Time of Disposition: 17:09
[2020-07-05 15:26] LABS: Basophils % (A) 0 %; Eosinophils % (A) 0 %; HCT 44.6 % (34.0-46.0); HGB 14.9 gm/dL (11.4-16.0); Lymphocytes # (A) 1.6 k/uL (1.0-4.8); Lymphocytes % (A) 13 %; MCH 29.9 pg (25.0-35.0); MCHC 33.5 g/dL (31.0-37.0); MCV 89.4 fL (80.0-100.0); Mean Platelet Volume 6.5; Monocytes # (A) 0.5 k/uL (0-1.0); Monocytes % (A) 4 %; Neutrophils # (A) 10.1 k/uL (1.3-7.7); Neutrophils % (A) 82 %; Platelet Count 248 k/uL (150-450); RBC 4.99 m/uL (3.80-5.40); RDW 12.5 % (11.5-15.5); WBC 12.3 k/uL (3.8-10.6)
[2020-07-05 15:27] LABS: Albumin 4.5 g/dL (3.5-5.0); Calcium 10.3 mg/dL (8.4-10.2); Potassium 4.5 mmol/L (3.5-5.1); Total Bilirubin 0.6 mg/dL (0.2-1.3)
--- NOTE | 2020-07-05 16:09 | XR ---
EXAMINATION TYPE: XR KUB DATE OF EXAM: 07/05/2020 COMPARISON: None HISTORY: Abdomen pain TECHNIQUE: Single upright abdomen FINDINGS: No free air under the diaphragm. Normal colonic bowel gas is present. No suspicious differe ntial air-fluid levels are present. Psoas margins are normal. Organomegaly is not present. Cholecyste ctomy clips are present. No mass effect is evident. Scoliosis is within the lumbar spine IMPRESSION: 1. Normal abdomen
[2020-07-05 16:22] VITALS: RESP 18
[2020-07-05 16:40] LABS: Appearance,Urine Clear (Clear); Bilirubin,Urine Negative (Negative); Blood,Urine Negative (Negative); Color,Urine Light Yellow; Glucose,Urine (UA) Negative (Negative); Ketones,Urine Negative (Negative); Leukocyte Esterase,Urine Negative (Negative); Nitrite,Urine Negative (Negative); PH, Urine 5.5 (5.0-8.0); Protein,Urine Negative (Negative); Specific Gravity,Urine 1.007 (1.001-1.035); Urobilinogen,Urine <2.0 mg/dL (<2.0)
[2020-07-05 17:39] VITALS: BP 117/79; PULSE 64; TEMP 98.2
== END 2020-07-05 17:46 | disposition home or self-care (01) ==
LOC: EC 13:19
DX: R10.10 Upper abdominal pain, unspecified (principal); R11.0 Nausea; E86.0 Dehydration; R79.89 Other specified abnormal findings of blood chemistry; R74.0 Nonspecific elevation of levels of transaminase and lactic acid dehydrogenase [LDH]; E07.9 Disorder of thyroid, unspecified; F31.9 Bipolar disorder, unspecified; F17.200 Nicotine dependence, unspecified, uncomplicated; Z79.890 Hormone replacement therapy; Z79.899 Other long term (current) drug therapy; Z90.49 Acquired absence of other specified parts of digestive tract; Z87.11 Personal history of peptic ulcer disease; Z87.448 Personal history of other diseases of urinary system
CPT/HCPCS: 36415; 74018; 80053; 81003; 82150; 82272; 83690; 84484; 85025; 93005; 96361; 96374; 96375; 99284

== ENCOUNTER 2020-10-31 04:18 | Emergency (ER) | payer MEDICARE ==
[2020-10-31 04:28] VITALS: RESP 16; TEMP 98.3
--- NOTE | 2020-10-31 05:10 | XR ---
EXAM: XR Chest, 2 Views CLINICAL HISTORY: ITS.REASON XR Reason: difficulty breathing TECHNIQUE: Frontal and lateral views of the chest. COMPARISON: 11/27/2019 FINDINGS: Lungs: No consolidation or mass. Pleural space: No effusion. Heart: No cardiomegaly. Bones/joints: No acute findings. IMPRESSION: No acute cardiopulmonary process.
[2020-10-31 05:32] LABS: Basophils % (A) 0 %; Eosinophils # (A) 0.1 k/uL (0-0.7); Eosinophils % (A) 1 %; HCT 42.3 % (34.0-46.0); HGB 14.5 gm/dL (11.4-16.0); Lymphocytes # (A) 1.5 k/uL (1.0-4.8); Lymphocytes % (A) 13 %; MCH 30.8 pg (25.0-35.0); MCHC 34.2 g/dL (31.0-37.0); MCV 89.9 fL (80.0-100.0); Mean Platelet Volume 8.3; Monocytes # (A) 0.7 k/uL (0-1.0); Monocytes % (A) 6 %; Neutrophils # (A) 9.2 k/uL (1.3-7.7); Neutrophils % (A) 79 %; Platelet Count 190 k/uL (150-450); RDW 12.4 % (11.5-15.5); WBC 11.6 k/uL (3.8-10.6)
[2020-10-31 05:36] LABS: Albumin 4.1 g/dL (3.5-5.0); Calcium 9.9 mg/dL (8.4-10.2); Total Bilirubin 0.8 mg/dL (0.2-1.3); Total Protein 6.9 g/dL (6.3-8.2)
--- NOTE | 2020-10-31 06:16 | ED ---
SOB HPI - General Chief Complaint: Shortness of Breath Stated Complaint: SOB Time Seen by Provider: 10/31/20 04:27 Source: patient, EMS Mode of arrival: EMS Limitations: no limitations - History of Present Illness Initial Comments: This patient is a 60-year-old woman who presents with complaint that she is having a little bit of chest tightness, mild cough, and was concerned as her recently diagnosed with coronal virus infection. Patient states symptoms have been going on since the morning, approximately 18 hours. She has not noted fever or chills. No sputum production. No leg pain or swelling. No change in urination or bowel movements. No anginal symptoms MD Complaint: shortness of breath, cough, chest pain Onset/Timin -: hour(s) Severity: mild Quality: dull Consistency: constant Improves With: nothing Worsens With: coughing, inspiration Associated Symptoms: cough Treatments Prior to Arrival: none - Related Data Home Oxygen Therapy: No Home Medications Medication Instructions Recorded Confirmed Multivitamins, Thera [Multivitamin 1 tab PO DAILY 05/27/18 11/27/19 (formulary)] clonazePAM [KlonoPIN] 1 mg PO QID PRN 05/27/18 11/27/19 risperiDONE 3 mg PO BID 07/16/18 11/27/19 Ascorbic Acid [Vitamin C] 500 mg PO DAILY 12/26/18 11/27/19 Calcium Carbonate [Calcium] 600 mg PO DAILY 12/26/18 11/27/19 Levothyroxine Sodium [Synthroid] 50 mcg PO DAILY 12/26/18 11/27/19 Venlafaxine HCl ER [Effexor XR] 375 mg PO DAILY 12/26/18 11/27/19 Pantoprazole Sodium [Protonix] 40 mg PO BID 05/02/19 11/27/19 lamoTRIgine [LaMICtal] 100 mg PO BID 05/02/19 11/27/19 Albuterol Inhaler (Mhu) [Ventolin 1 - 2 puff INHALATION RT-Q4H PRN 11/27/19 11/27/19 Hfa Inhaler (Mhu)] Amoxicillin 875 mg PO BID 11/27/19 11/27/19 hydrOXYzine pamoate [hydrOXYzine 50 mg PO HS PRN 11/27/19 11/27/19 PAMOATE] Previous Rx's Medication Instructions Recorded Umeclidinium Brm/Vilanterol Tr 1 puff INHALATION DAILY #1 device 11/27/19 [Anoro Ellipta 62.5-25 Mcg INH] predniSONE See Taper PO DAILY #30 tab 11/27/19 Famotidine [Pepcid] 20 mg PO BID #30 tablet 07/05/20 Ondansetron Odt [Zofran ODT] 4 mg PO Q8HR PRN #10 tab 10/31/20 Allergies Allergy/AdvReac Type Severity Reaction Status Date / Time No Known Allergies Allergy Verified 07/05/20 13:28 Review of Systems ROS Statement: Those systems with pertinent positive or pertinent negative responses have been documented in the HPI. ROS Other: All systems not noted in ROS Statement are negative. Constitutional: Denies: fever, chills, weakness Respiratory: Reports: as per HPI, cough, dyspnea. Denies: wheezes, hemoptysis Cardiovascular: Reports: as per HPI, chest pain. Denies: palpitations, orthopnea, edema, syncope Gastrointestinal: Denies: abdominal pain, nausea, vomiting, diarrhea Genitourinary: Denies: dysuria, hematuria Musculoskeletal: Denies: back pain Skin: Denies: rash Neurological: Denies: headache, weakness, numbness Past Medical History Past Medical History: COPD, Thyroid Disorder Additional Past Medical History / Comment(s): cysts on (R) kidney. History of Any Multi-Drug Resistant Organisms: None Reported Past Surgical History: Cholecystectomy, Hysterectomy Additional Past Surgical History / Comment(s): parathyroidectomy Past Anesthesia/Blood Transfusion Reactions: No Reported Reaction Past Psychological History: Bipolar Smoking Status: Current every day smoker Past Alcohol Use History: None Reported Past Drug Use History: None Reported, Opiates, Prescription Drug Abuse - Past Family History Father Family Medical History: Coronary Artery Disease (CAD) Mother Family Medical History: Coronary Artery Disease (CAD) General Exam Limitations: no limitations General appearance: alert, in no apparent distress Head exam: Present: atraumatic, normocephalic Eye exam: Present: normal appearance. Absent: scleral icterus, conjunctival injection ENT exam: Present: normal oropharynx Neck exam: Present: normal inspection, full ROM Respiratory exam: Present: wheezes (Trace expiratory wheeze). Absent: respiratory distress, rales, rhonchi, stridor, chest wall tenderness, accessory muscle use Cardiovascular Exam: Present: regular rate, normal rhythm, normal heart sounds. Absent: systolic murmur, diastolic murmur, rubs, gallop GI/Abdominal exam: Present: soft. Absent: distended, tenderness, guarding, re bound, rigid, mass Extremities exam: Present: normal inspection, normal capillary refill. Absent: pedal edema, calf tenderness Back exam: Present: normal inspection Neurological exam: Present: alert Skin exam: Present: warm, dry, intact, normal color. Absent: rash Course Vital Signs 10/31/20 10/31/20 04:19 07:09 Temperature 98.3 F Pulse Rate 64 57 L Respiratory 16 16 Rate Blood Pressure 101/58 98/64 O2 Sat by Pulse 96 95 Oximetry Medical Decision Making - Medical Decision Making Patient's 60-year-old woman with recent coronavirus exposure, workup negative other than coronavirus testing is still outstanding. Discussed appropriate further care and follow-up as well as return parameters. - Lab Data Result diagrams: 10/31/20 05:21 10/31/20 05:21 Lab Results 10/31/20 10/31/20 10/31/20 Range/Units 05:21 05:21 05:21 WBC 11.6 H (3.8-10.6) k/uL RBC 4.70 (3.80-5.40) m/uL Hgb 14.5 (11.4-16.0) gm/dL Hct 42.3 (34.0-46.0) % MCV 89.9 (80.0-100.0) fL MCH 30.8 (25.0-35.0) pg MCHC 34.2 (31.0-37.0) g/dL RDW 12.4 (11.5-15.5) % Plt Count 190 (150-450) k/uL MPV 8.3 Neutrophils % 79 % Lymphocytes % 13 % Monocytes % 6 % Eosinophils % 1 % Basophils % 0 % Neutrophils # 9.2 H (1.3-7.7) k/uL Lymphocytes # 1.5 (1.0-4.8) k/uL Monocytes # 0.7 (0-1.0) k/uL Eosinophils # 0.1 (0-0.7) k/uL Basophils # 0.0 (0-0.2) k/uL PT (9.0-12.0) sec INR (<1.2) APTT (22.0-30.0) sec D-Dimer (<0.60) mg/L FEU Sodium 133 L (137-145) mmol/L Potassium 5.0 (3.5-5.1) mmol/L Chloride 102 (98-107) mmol/L Carbon Dioxide 26 (22-30) mmol/L Anion Gap 5 mmol/L BUN 24 H (7-17) mg/dL Creatinine 1.23 H (0.52-1.04) mg/dL Est GFR (CKD-EPI)AfAm 56 (>60 ml/min/1.73 sqM) Est GFR (CKD-EPI)NonAf 48 (>60 ml/min/1.73 sqM) Glucose 105 H (74-99) mg/dL Plasma Lactic Acid Jorge 1.7 (0.7-2.0) mmol/L Calcium 9.9 (8.4-10.2) mg/dL Total Bilirubin 0.8 (0.2-1.3) mg/dL AST 68 H (14-36) U/L ALT 29 (4-34) U/L Alkaline Phosphatase 101 (38-126) U/L Troponin I (0.000-0.034) ng/mL NT-Pro-B Natriuret Pep pg/mL Total Protein 6.9 (6.3-8.2) g/dL Albumin 4.1 (3.5-5.0) g/dL 10/31/20 10/31/20 10/31/20 Range/Units 05:21 05:21 06:20 WBC (3.8-10.6) k/uL RBC (3.80-5.40) m/uL Hgb (11.4-16.0) gm/dL Hct (34.0-46.0) % MCV (80.0-100.0) fL MCH (25.0-35.0) pg MCHC (31.0-37.0) g/dL RDW (11.5-15.5) % Plt Count (150-450) k/uL MPV Neutrophils % % Lymphocytes % % Monocytes % % Eosinophils % % Basophils % % Neutrophils # (1.3-7.7) k/uL Lymphocytes # (1.0-4.8) k/uL Monocytes # (0-1.0) k/uL Eosinophils # (0-0.7) k/uL Basophils # (0-0.2) k/uL PT 10.0 (9.0-12.0) sec INR 0.9 (<1.2) APTT 25.8 (22.0-30.0) sec D-Dimer 0.47 (<0.60) mg/L FEU Sodium (137-145) mmol/L Potassium (3.5-5.1) mmol/L Chloride (98-107) mmol/L Carbon Dioxide (22-30) mmol/L Anion Gap mmol/L BUN (7-17) mg/dL Creatinine (0.52-1.04) mg/dL Est GFR (CKD-EPI)AfAm (>60 ml/min/1.73 sqM) Est GFR (CKD-EPI)NonAf (>60 ml/min/1.73 sqM) Glucose (74-99) mg/dL Plasma Lactic Acid Jorge (0.7-2.0) mmol/L Calcium (8.4-10.2) mg/dL Total Bilirubin (0.2-1.3) mg/dL AST (14-36) U/L ALT (4-34) U/L Alkaline Phosphatase (38-126) U/L Troponin I <0.012 (0.000-0.034) ng/mL NT-Pro-B Natriuret Pep 136 pg/mL Total Protein (6.3-8.2) g/dL Albumin (3.5-5.0) g/dL - EKG Data -: EKG Interpreted by [facility] EKG shows normal: sinus rhythm, axis (Normal), intervals (Normal), QRS complexes (Incomplete right bundle-branch block.) Rate: bradycardia (Rate 59 bpm) Interpretation: other (Possible right ventricular hypertrophy.) Disposition Clinical Impression: Chest pain, Viral syndrome Disposition: HOME SELF-CARE Condition: Good Instructions (If sedation given, give patient instructions): Chest Pain (ED) Prescriptions: Ondansetron Odt [Zofran ODT] 4 mg PO Q8HR PRN #10 tab PRN Reason: Nausea Is patient prescribed a controlled substance at d/c from ED?: No Referrals: Angel Ansari MD [Primary Care Provider] - 1-2 days
[2020-10-31 06:44] LABS: D-Dimer 0.47 mg/L FEU (<0.60); INR 0.9 (<1.2); Partial Thromboplastin Time 25.8 sec (22.0-30.0)
[2020-10-31 07:11] VITALS: BP 98/64; PULSE 57
== END 2020-10-31 07:10 | disposition home or self-care (01) ==
LOC: EC 04:18
DX: B34.9 Viral infection, unspecified (principal); R07.9 Chest pain, unspecified; J44.9 Chronic obstructive pulmonary disease, unspecified; E07.9 Disorder of thyroid, unspecified; F17.200 Nicotine dependence, unspecified, uncomplicated; Z79.890 Hormone replacement therapy; Z79.899 Other long term (current) drug therapy
CPT/HCPCS: 36415; 71046; 80053; 83605; 83880; 84484; 85025; 85379; 85610; 85730; 93005; 99285

== ENCOUNTER 2020-11-28 16:28 | Emergency (ER) | payer MEDICARE ==
[2020-11-28 16:38] VITALS: PULSE 67; RESP 18; TEMP 98.6
[2020-11-28 16:45] VITALS: BP 107/70
[2020-11-28] MEDS ORDERED: KETOROLAC 15 MG/ML 1 ML VIAL IVP STA (17:29)
[2020-11-28] MEDS ORDERED: AMOXIC-POT CLAV 875-125MG 1 EACH TAB PO STA (17:29)
--- NOTE | 2020-11-28 17:31 | ED ---
ENT HPI - General Chief complaint: ENT Stated complaint: ENT/Covid+ Source: patient Mode of arrival: ambulatory Limitations: no limitations - History of Present Illness Initial comments: Patient is a 60-year-old female with past medical history of COPD and thyroid disorder who presents emergency Department with left ear pain. States she was diagnosed with covid 13 days ago. 3 days ago the patient developed left ear pain. She saw Dr. Ansari in office who put her on Cortisporin eardrops. States she's been using them without improvement in her pain. Describes it as a sharp shooting pain and feels as if there is significant pressure behind her eardrum. Denies hearing changes. Admits to mild headache with no visual changes. No fevers or chills. Denies vertiginous symptoms. No neck pain. Denies sinus pain. No nausea or vomiting. Denies chest pain or shortness of breath. No history of diabetes. No other alleviating, precipitating or modifying factors - Related Data Home Medications Medication Instructions Recorded Confirmed Multivitamins, Thera [Multivitamin 1 tab PO DAILY 05/27/18 11/27/19 (formulary)] clonazePAM [KlonoPIN] 1 mg PO QID PRN 05/27/18 11/27/19 risperiDONE 3 mg PO BID 07/16/18 11/27/19 Ascorbic Acid [Vitamin C] 500 mg PO DAILY 12/26/18 11/27/19 Calcium Carbonate [Calcium] 600 mg PO DAILY 12/26/18 11/27/19 Levothyroxine Sodium [Synthroid] 50 mcg PO DAILY 12/26/18 11/27/19 Venlafaxine HCl ER [Effexor XR] 375 mg PO DAILY 12/26/18 11/27/19 Pantoprazole Sodium [Protonix] 40 mg PO BID 05/02/19 11/27/19 lamoTRIgine [LaMICtal] 100 mg PO BID 05/02/19 11/27/19 Albuterol Inhaler (Mhu) [Ventolin 1 - 2 puff INHALATION RT-Q4H PRN 11/27/19 11/27/19 Hfa Inhaler (Mhu)] Amoxicillin 875 mg PO BID 11/27/19 11/27/19 hydrOXYzine pamoate [hydrOXYzine 50 mg PO HS PRN 11/27/19 11/27/19 PAMOATE] Previous Rx's Medication Instructions Recorded Umeclidinium Brm/Vilanterol Tr 1 puff INHALATION DAILY #1 device 11/27/19 [Anoro Ellipta 62.5-25 Mcg INH] predniSONE See Taper PO DAILY #30 tab 11/27/19 Famotidine [Pepcid] 20 mg PO BID #30 tablet 07/05/20 Ondansetron Odt [Zofran ODT] 4 mg PO Q8HR PRN #10 tab 10/31/20 Amoxicillin/Potassium Clav 1 tab PO Q12HR #20 tab 11/28/20 [Augmentin 875-125 Tablet] Fluticasone Nasal [place] [Flonase 2 spr EA NOSTRIL DAILY #1 bottle 11/28/20 Nasal [place]] Loratadine-Pseudoeph 10-240 mg 1 tab PO DAILY #24 tab 11/28/20 [Claritin-D 24 Hour] Allergies Allergy/AdvReac Type Severity Reaction Status Date / Time No Known Allergies Allergy Verified 11/28/20 16:34 Review of Systems ROS Statement: Those systems with pertinent positive or pertinent negative responses have been documented in the HPI. ROS Other: All systems not noted in ROS Statement are negative. Past Medical History Past Medical History: COPD, Thyroid Disorder Additional Past Medical History / Comment(s): cysts on (R) kidney. History of Any Multi-Drug Resistant Organisms: None Reported Past Surgical History: Cholecystectomy, Hysterectomy Additional Past Surgical History / Comment(s): parathyroidectomy Past Anesthesia/Blood Transfusion Reactions: No Reported Reaction Past Psychological History: Bipolar Smoking Status: Current every day smoker Past Alcohol Use History: None Reported Past Drug Use History: None Reported, Opiates, Prescription Drug Abuse - Past Family History Father Family Medical History: Coronary Artery Disease (CAD) Mother Family Medical History: Coronary Artery Disease (CAD) General Exam Limitations: no limitations Course Vital Signs 11/28/20 11/28/20 16:34 16:38 Temperature 98.6 F Pulse Rate 67 Respiratory 18 Rate Blood Pressure 107/70 O2 Sat by Pulse 98 Oximetry Medical Decision Making - Medical Decision Making On arrival patient is placed in room 25. A thorough history and physical exam was performed. No signs of otitis externa. Tympanic membrane is ulloa and shiny. Patient has mild mastoid pain. No signs of erythema or bogginess over the mastoid process. The diagnosis, differential and treatment options are discussed with the patient. Patient given a dose of Toradol IM. I did recommend CT of the patient's IAC however she refused at this time. I did recommend treatment with Flonase, Claritin D and. Covered with antibiotics. Patient will be given follow-up information for ENT. She is to follow-up with him in one week. Return to the emergency room for any new or worsening symptoms. Patient is in agreement with the treatment plan was discharged home in stable condition Disposition Clinical Impression: SARS-CoV-2 positive, Otalgia, left ear Disposition: HOME SELF-CARE Condition: Stable Instructions (If sedation given, give patient instructions): Earache (ED) Additional Instructions: Please follow up with ENT within 1 week. Return to the ED for any new or worsening symptoms. Prescriptions: Amoxicillin/Potassium Clav [Augmentin 875-125 Tablet] 1 tab PO Q12HR #20 tab Loratadine-Pseudoeph 10-240 mg [Claritin-D 24 Hour] 1 tab PO DAILY #24 tab Fluticasone Nasal [place] [Flonase Nasal [place]] 2 spr EA NOSTRIL DAILY #1 bottle Is patient prescribed a controlled substance at d/c from ED?: No Referrals: Angel Ansari MD [Primary Care Provider] - 1-2 days Gustavo Desai MD [STAFF PHYSICIAN] - 1-2 days Time of Disposition: 17:31
[2020-11-28] MEDS ORDERED: KETOROLAC 15 MG/ML 1 ML VIAL IM STA (17:34)
== END 2020-11-28 17:44 | disposition home or self-care (01) ==
LOC: EC 16:28
DX: U07.1 COVID-19 (principal); H92.02 Otalgia, left ear; J44.9 Chronic obstructive pulmonary disease, unspecified; E07.9 Disorder of thyroid, unspecified; F31.9 Bipolar disorder, unspecified; F17.200 Nicotine dependence, unspecified, uncomplicated; Z79.899 Other long term (current) drug therapy; Z79.890 Hormone replacement therapy
CPT/HCPCS: 99282; 96372; J1885

== ENCOUNTER 2020-12-02 22:12 | Emergency (ER) | payer MEDICARE ==
[2020-12-02 22:28] VITALS: TEMP 98.3
[2020-12-02] MEDS ORDERED: SODIUM CHLORIDE 0.9% 500 ML 500 ML IV STA (22:56)
[2020-12-02] MEDS ORDERED: SODIUM CHLORIDE 0.9% 1,000 ML IV STA (22:56)
[2020-12-02] MEDS ORDERED: KETOROLAC 15 MG/ML 1 ML VIAL IVP STA (22:57)
[2020-12-02] MEDS ORDERED: MORPHINE SULFATE 4 MG/ML SYRINGE IVP STA (22:57)
--- NOTE | 2020-12-02 23:04 | ED ---
Recheck HPI - General Chief Complaint: ENT Stated Complaint: +COVID, Revisit L Ear Pain Time Seen by Provider: 12/02/20 22:34 Source: patient, RN notes reviewed, old records reviewed Mode of arrival: ambulatory Limitations: no limitations - History of Present Illness Initial Comments: This is a 60-year-old female she presents today for evaluation of left ear pain recurrent evaluation of left ear pain recent history of coronavirus about 3 weeks ago. Patient has some shortness of breath here in the ER with COPD related. Patient states she has recovered from coronavirus is having some maybe episodic fevers which he does take Motrin and follow 4, afebrile here in the ER. Patient has left ear pain recurrent visit for left ear pain. Patient states outpatient treatment is not helping her pain. No change in hearing no neurological no dizziness MD Complaint: other (Persistent left ear pain) -: days(s) Returns Today for: persistent/worsening pain related to initial visit Symptoms Since Prior Visit: worsening pain Context: other (Worsening pain) Associated Symptoms: fever (Occasional) Treatments Prior to Arrival: other medications ([id number]) - Related Data Home Medications Medication Instructions Recorded Confirmed Multivitamins, Thera [Multivitamin 1 tab PO DAILY 05/27/18 11/27/19 (formulary)] clonazePAM [KlonoPIN] 1 mg PO QID PRN 05/27/18 11/27/19 risperiDONE 3 mg PO BID 07/16/18 11/27/19 Ascorbic Acid [Vitamin C] 500 mg PO DAILY 12/26/18 11/27/19 Calcium Carbonate [Calcium] 600 mg PO DAILY 12/26/18 11/27/19 Levothyroxine Sodium [Synthroid] 50 mcg PO DAILY 12/26/18 11/27/19 Venlafaxine HCl ER [Effexor XR] 375 mg PO DAILY 12/26/18 11/27/19 Pantoprazole Sodium [Protonix] 40 mg PO BID 05/02/19 11/27/19 lamoTRIgine [LaMICtal] 100 mg PO BID 05/02/19 11/27/19 Albuterol Inhaler (Mhu) [Ventolin 1 - 2 puff INHALATION RT-Q4H PRN 11/27/19 11/27/19 Hfa Inhaler (Mhu)] Amoxicillin 875 mg PO BID 11/27/19 11/27/19 hydrOXYzine pamoate [hydrOXYzine 50 mg PO HS PRN 11/27/19 11/27/19 PAMOATE] Previous Rx's Medication Instructions Recorded Umeclidinium Brm/Vilanterol Tr 1 puff INHALATION DAILY #1 device 11/27/19 [Anoro Ellipta 62.5-25 Mcg INH] predniSONE See Taper PO DAILY #30 tab 11/27/19 Famotidine [Pepcid] 20 mg PO BID #30 tablet 07/05/20 Ondansetron Odt [Zofran ODT] 4 mg PO Q8HR PRN #10 tab 10/31/20 Amoxicillin/Potassium Clav 1 tab PO Q12HR #20 tab 11/28/20 [Augmentin 875-125 Tablet] Fluticasone Nasal [place] [Flonase 2 spr EA NOSTRIL DAILY #1 bottle 11/28/20 Nasal [place]] Loratadine-Pseudoeph 10-240 mg 1 tab PO DAILY #24 tab 11/28/20 [Claritin-D 24 Hour] Allergies Allergy/AdvReac Type Severity Reaction Status Date / Time No Known Allergies Allergy Verified 12/02/20 22:28 Review of Systems ROS Statement: Those systems with pertinent positive or pertinent negative responses have been documented in the HPI. ROS Other: All systems not noted in ROS Statement are negative. Past Medical History Past Medical History: COPD, Thyroid Disorder Additional Past Medical History / Comment(s): cysts on (R) kidney. History of Any Multi-Drug Resistant Organisms: None Reported Past Surgical History: Cholecystectomy, Hysterectomy Additional Past Surgical History / Comment(s): parathyroidectomy Past Anesthesia/Blood Transfusion Reactions: No Reported Reaction Past Psychological History: Bipolar Smoking Status: Current every day smoker Past Alcohol Use History: None Reported Past Drug Use History: None Reported, Opiates, Prescription Drug Abuse - Past Family History Father Family Medical History: Coronary Artery Disease (CAD) Mother Family Medical History: Coronary Artery Disease (CAD) General Exam Limitations: no limitations General appearance: alert, in no apparent distress Head exam: Present: atraumatic, normocephalic, normal inspection Eye exam: Present: normal appearance, PERRL, EOMI. Absent: scleral icterus, conjunctival injection, periorbital swelling ENT exam: Present: normal exam, mucous membranes moist Neck exam: Present: normal inspection. Absent: tenderness, meningismus, lymp hadenopathy Respiratory exam: Present: normal lung sounds bilaterally. Absent: respiratory distress, wheezes, rales, rhonchi, stridor Cardiovascular Exam: Present: regular rate, normal rhythm, normal heart sounds. Absent: systolic murmur, diastolic murmur, rubs, gallop, clicks GI/Abdominal exam: Present: soft, normal bowel sounds. Absent: distended, tenderness, guarding, rebound, rigid Extremities exam: Present: normal inspection, full ROM, normal capillary refill. Absent: tenderness, pedal edema, joint swelling, calf tenderness Back exam: Present: normal inspection Neurological exam: Present: alert, oriented X3, CN II-XII intact Psychiatric exam: Present: normal affect, normal mood Skin exam: Present: warm, dry, intact, normal color. Absent: rash Course Vital Signs 12/02/20 12/03/20 22:25 00:03 Temperature 98.3 F Pulse Rate 76 61 Respiratory 20 18 Rate Blood Pressure 94/63 110/67 O2 Sat by Pulse 99 98 Oximetry - Reevaluation(s) Reevaluation #1: 12/03/20 00:09 Record is reviewed including prior ER visit Reevaluation #2: 12/03/20 00:09 Patient's pain symptoms are improved Reevaluation #3: 12/03/20 00:09 Patient informed results okay for discharge Medical Decision Making - Medical Decision Making 60-year-old female DF for evaluation control pain management. Follow with your nose and throat - Lab Data Result diagrams: 12/02/20 23:10 12/02/20 23:10 Lab Results 12/02/20 12/02/20 12/02/20 Range/Units 23:10 23:10 23:10 WBC 10.2 (3.8-10.6) k/uL RBC 4.58 (3.80-5.40) m/uL Hgb 14.4 (11.4-16.0) gm/dL Hct 41.0 (34.0-46.0) % MCV 89.5 (80.0-100.0) fL MCH 31.3 (25.0-35.0) pg MCHC 35.0 (31.0-37.0) g/dL RDW 12.7 (11.5-15.5) % Plt Count 272 (150-450) k/uL MPV 6.7 Neutrophils % 66 % Lymphocytes % 26 % Monocytes % 6 % Eosinophils % 0 % Basophils % 0 % Neutrophils # 6.7 (1.3-7.7) k/uL Lymphocytes # 2.6 (1.0-4.8) k/uL Monocytes # 0.7 (0-1.0) k/uL Eosinophils # 0.0 (0-0.7) k/uL Basophils # 0.0 (0-0.2) k/uL Sodium 137 (137-145) mmol/L Potassium 4.3 (3.5-5.1) mmol/L Chloride 107 (98-107) mmol/L Carbon Dioxide 22 (22-30) mmol/L Anion Gap 8 mmol/L BUN 22 H (7-17) mg/dL Creatinine 1.27 H (0.52-1.04) mg/dL Est GFR (CKD-EPI)AfAm 54 (>60 ml/min/1.73 sqM) Est GFR (CKD-EPI)NonAf 46 (>60 ml/min/1.73 sqM) Glucose 108 H (74-99) mg/dL Plasma Lactic Acid Jorge 0.9 (0.7-2.0) mmol/L Calcium 9.6 (8.4-10.2) mg/dL Phosphorus 4.2 (2.5-4.5) mg/dL Magnesium 1.8 (1.6-2.3) mg/dL Total Bilirubin 0.4 (0.2-1.3) mg/dL AST 33 (14-36) U/L ALT 26 (4-34) U/L Alkaline Phosphatase 123 (38-126) U/L Lactate Dehydrogenase 482 (313-618) U/L Creatine Kinase 63 (30-135) U/L C-Reactive Protein 5.4 (<10.0) mg/L Total Protein 6.5 (6.3-8.2) g/dL Albumin 4.0 (3.5-5.0) g/dL - EKG Data -: EKG Interpreted by Me (EKG shows sinus rhythm 65 OK 188 QRS 96 QTc 451) - Radiology Data Radiology results: report reviewed (CTIA see negative for acute disease), image reviewed Disposition Clinical Impression: Otalgia, left ear Disposition: HOME SELF-CARE Condition: Good Instructions (If sedation given, give patient instructions): Earache (ED) Is patient prescribed a controlled substance at d/c from ED?: No Referrals: Gustavo Desai MD [STAFF PHYSICIAN] - 1-2 days
--- NOTE | 2020-12-02 23:26 | XR ---
EXAMINATION TYPE: XR chest 1V DATE OF EXAM: 12/02/2020 COMPARISON: 10/31/2020 HISTORY: Difficulty breathing TECHNIQUE: FINDINGS: Heart and mediastinum are normal. Lungs are clear. Diaphragm is normal. There are chest patt ds. Bony thorax is intact. The pulmonary vascularity is normal. There are chest leads. IMPRESSION: Normal chest. No change.
--- NOTE | 2020-12-02 23:33 | CT ---
EXAMINATION TYPE: CT iac wo con DATE OF EXAM: 12/02/2020 COMPARISON: None HISTORY: Left Ear Pain CT DLP: 452 mGycm Automated exposure control for dose reduction was used. CT scan of the temporal bones. History left ear pain. Comparison none. TECHNIQUE: Images obtained from the level of the skull base to the mid temporal bones without contrast. FINDINGS: Mandibular condyles appear intact. Temporomandibular joints are intact. The external auditory canals appear fairly normal. There is normal aeration of the epitympanic recess bilaterally. The semicircula r canals and cochlea appear intact. I see no bony destructive process. There is normal aeration of th e mastoid sinuses. Tympanic membranes appear intact. The internal auditory canals appear normal. There is no sign of a cerebellopontine angle mass. The sp henoid bone appears normal. The visualized paranasal sinuses appear intact. There is no evidence of s inusitis. The tonsils and adenoids are intact. IMPRESSION: Negative CT scan of the temporal bones. I do not see a cause for left side ear pain.
[2020-12-02 23:35] LABS: Basophils % (A) 0 %; Eosinophils % (A) 0 %; HGB 14.4 gm/dL (11.4-16.0); Lymphocytes # (A) 2.6 k/uL (1.0-4.8); Lymphocytes % (A) 26 %; MCH 31.3 pg (25.0-35.0); MCV 89.5 fL (80.0-100.0); Mean Platelet Volume 6.7; Monocytes # (A) 0.7 k/uL (0-1.0); Monocytes % (A) 6 %; Neutrophils # (A) 6.7 k/uL (1.3-7.7); Neutrophils % (A) 66 %; Platelet Count 272 k/uL (150-450); RBC 4.58 m/uL (3.80-5.40); RDW 12.7 % (11.5-15.5); WBC 10.2 k/uL (3.8-10.6)
[2020-12-02 23:36] LABS: Total Protein 6.5 g/dL (6.3-8.2)
[2020-12-02 23:37] LABS: C Reactive Protein 5.4 mg/L (<10.0); Calcium 9.6 mg/dL (8.4-10.2); Magnesium 1.8 mg/dL (1.6-2.3); Phosphorus 4.2 mg/dL (2.5-4.5); Potassium 4.3 mmol/L (3.5-5.1); Total Bilirubin 0.4 mg/dL (0.2-1.3)
[2020-12-02] MEDS ORDERED: IBUPROFEN 600 MG STARTER PACK 4 TAB BTL PO STA (23:43)
[2020-12-02] MEDS ORDERED: traMADol 50 MG STARTER PACK 3 TAB BTL PO STA (23:43)
[2020-12-02] MEDS ORDERED: IPRATROPIUM-ALBUTEROL 3 ML NEB INHALATION STA (23:44)
[2020-12-02] MEDS ORDERED: DEXAMETHASONE SOD PHOSPHATE 10 MG/ML 1 ML VIAL IV STA (23:44)
[2020-12-03 00:03] VITALS: RESP 18
[2020-12-03 00:45] VITALS: BP 105/60; PULSE 62
== END 2020-12-03 00:45 | disposition home or self-care (01) ==
LOC: EC 22:12
DX: H92.02 Otalgia, left ear (principal); J44.9 Chronic obstructive pulmonary disease, unspecified; F31.9 Bipolar disorder, unspecified; E07.9 Disorder of thyroid, unspecified; F17.200 Nicotine dependence, unspecified, uncomplicated; Z79.899 Other long term (current) drug therapy; Z79.890 Hormone replacement therapy; Z86.16 Personal history of COVID-19
CPT/HCPCS: 36415; 94640; 93005; 80053; 82550; 83605; 83615; 83735; 84100; 85025; 86140; 87040; 71045; 70480; 99284; 96374; 96375 ×2; 96361; J2270; J1100; J1885

== ENCOUNTER 2020-12-07 21:20 | Emergency (ER) | payer MEDICARE ==
[2020-12-07 21:34] VITALS: TEMP 98.7
[2020-12-07] MEDS ORDERED: ACETAMINOPHEN TAB 325 MG TAB PO STA (21:42)
--- NOTE | 2020-12-07 21:51 | ED ---
ENT HPI - General Chief complaint: ENT Stated complaint: Ear and Throat Pain Time Seen by Provider: 12/07/20 21:37 Source: patient, RN notes reviewed Mode of arrival: ambulatory Limitations: no limitations - History of Present Illness Initial comments: Patient is a 60-year-old female presents to emergency department complaining of left external ear pain. She noted that her throat is also mildly discomfortable and is mildly short of breath. She noted that this is been going on for about a week. She'll that she has not been to her primary care or urgent care for evaluation. She'll that she's been taking Tylenol Motrin with no relief. She states the pain is constant with no relief from any medications or anything. She states it has been a while since her last ear infection. She denied any chest pain headache nausea vomiting diarrhea constipation fever fatigue chills change or discharge.. - Related Data Home Medications Medication Instructions Recorded Confirmed Multivitamins, Thera [Multivitamin 1 tab PO DAILY 05/27/18 11/27/19 (formulary)] clonazePAM [KlonoPIN] 1 mg PO QID PRN 05/27/18 11/27/19 risperiDONE 3 mg PO BID 07/16/18 11/27/19 Ascorbic Acid [Vitamin C] 500 mg PO DAILY 12/26/18 11/27/19 Calcium Carbonate [Calcium] 600 mg PO DAILY 12/26/18 11/27/19 Levothyroxine Sodium [Synthroid] 50 mcg PO DAILY 12/26/18 11/27/19 Venlafaxine HCl ER [Effexor XR] 375 mg PO DAILY 12/26/18 11/27/19 Pantoprazole Sodium [Protonix] 40 mg PO BID 05/02/19 11/27/19 lamoTRIgine [LaMICtal] 100 mg PO BID 05/02/19 11/27/19 Albuterol Inhaler (Mhu) [Ventolin 1 - 2 puff INHALATION RT-Q4H PRN 11/27/19 11/27/19 Hfa Inhaler (Mhu)] Amoxicillin 875 mg PO BID 11/27/19 11/27/19 hydrOXYzine pamoate [hydrOXYzine 50 mg PO HS PRN 11/27/19 11/27/19 PAMOATE] Previous Rx's Medication Instructions Recorded Umeclidinium Brm/Vilanterol Tr 1 puff INHALATION DAILY #1 device 11/27/19 [Anoro Ellipta 62.5-25 Mcg INH] predniSONE See Taper PO DAILY #30 tab 11/27/19 Famotidine [Pepcid] 20 mg PO BID #30 tablet 07/05/20 Ondansetron Odt [Zofran ODT] 4 mg PO Q8HR PRN #10 tab 10/31/20 Amoxicillin/Potassium Clav 1 tab PO Q12HR #20 tab 11/28/20 [Augmentin 875-125 Tablet] Fluticasone Nasal [place] [Flonase 2 spr EA NOSTRIL DAILY #1 bottle 11/28/20 Nasal [place]] Loratadine-Pseudoeph 10-240 mg 1 tab PO DAILY #24 tab 11/28/20 [Claritin-D 24 Hour] Uwwcqzfv-Abpgezqgv-Sm Otic 4 drops BOTH EARS TID 7 Days #20 ml 12/07/20 [Cortisporin Otic Soln] Allergies Allergy/AdvReac Type Severity Reaction Status Date / Time No Known Allergies Allergy Verified 12/07/20 21:34 Review of Systems ROS Statement: Those systems with pertinent positive or pertinent negative responses have been documented in the HPI. ROS Other: All systems not noted in ROS Statement are negative. Past Medical History Past Medical History: COPD, Thyroid Disorder Additional Past Medical History / Comment(s): cysts on (R) kidney. History of Any Multi-Drug Resistant Organisms: None Reported Past Surgical History: Cholecystectomy, Hysterectomy Additional Past Surgical History / Comment(s): parathyroidectomy Past Anesthesia/Blood Transfusion Reactions: No Reported Reaction Past Psychological History: Bipolar Smoking Status: Current every day smoker Past Alcohol Use History: None Reported Past Drug Use History: Opiates, Prescription Drug Abuse - Past Family History Father Family Medical History: Coronary Artery Disease (CAD) Mother Family Medical History: Coronary Artery Disease (CAD) General Exam Limitations: no limitations General appearance: alert, in no apparent distress Head exam: Present: atraumatic, normocephalic, normal inspection Eye exam: Present: normal appearance, PERRL, EOMI. Absent: scleral icterus, conjunctival injection, periorbital swelling ENT exam: Present: normal exam, mucous membranes moist. Absent: normal external ear exam (Left external auditory canal is erythematous and minimally swollen.) Neck exam: Present: normal inspection. Absent: tenderness, meningismus, lymphadenopathy Respiratory exam: Present: normal lung sounds bilaterally. Absent: respiratory distress, wheezes, rales, rhonchi, stridor Cardiovascular Exam: Present: regular rate, normal rhythm, normal heart sounds. Absent: systolic murmur, diastolic murmur, rubs, gallop, clicks GI/Abdominal exam: Present: soft, normal bowel sounds. Absent: distended, tenderness, guarding, rebound, rigid Extremities exam: Present: normal inspection, full ROM, normal capillary refill. Absent: tenderness, pedal edema, joint swelling, calf tenderness Neurological exam: Present: alert, oriented X3, CN II-XII intact Psychiatric exam: Present: normal affect, normal mood Skin exam: Present: warm, dry, intact, normal color. Absent: rash Course Vital Signs 12/07/20 21:33 Temperature 98.7 F Pulse Rate 81 Respiratory 20 Rate Blood Pressure 125/78 O2 Sat by Pulse 99 Oximetry Medical Decision Making - Medical Decision Making 60-year-old female complaining of left ear pain with some mild throat discomfort and minimal shortness of breath. Basic labs, chest x-ray ordered. Labs unremarkable. Case discussed with Dr. Carson, was decided the patient to discharge home with ear drop antibiotic. - Lab Data Result diagrams: 12/07/20 22:06 Lab Results 12/07/20 12/07/20 Range/Units 22:06 22:06 WBC 10.4 (3.8-10.6) k/uL RBC 4.88 (3.80-5.40) m/uL Hgb 15.1 (11.4-16.0) gm/dL Hct 43.9 (34.0-46.0) % MCV 90.0 (80.0-100.0) fL MCH 31.0 (25.0-35.0) pg MCHC 34.4 (31.0-37.0) g/dL RDW 13.5 (11.5-15.5) % Plt Count 280 (150-450) k/uL MPV 6.9 Neutrophils % 70 % Lymphocytes % 23 % Monocytes % 4 % Eosinophils % 1 % Basophils % 0 % Neutrophils # 7.3 (1.3-7.7) k/uL Lymphocytes # 2.4 (1.0-4.8) k/uL Monocytes # 0.4 (0-1.0) k/uL Eosinophils # 0.1 (0-0.7) k/uL Basophils # 0.0 (0-0.2) k/uL Coronavirus (PCR) Not Detected (Not Detectd) Influenza Type A RNA Not Detected (Not Detectd) Influenza Type B (PCR) Not Detected (Not Detectd) Group A Strep Rapid Negative (Negative) Disposition Clinical Impression: Otitis externa Disposition: HOME SELF-CARE Condition: Stable Instructions (If sedation given, give patient instructions): Otitis Externa (ED) Additional Instructions: Please return to the Emergency Department if symptoms worsen or any other concerns. Use antibiotic drops as prescribed for 7 days. Follow-up with primary care 1-2 days. Avoid getting any water in the ear. Take tsrg-hvz-nbezkdo pain medication as needed for conservative management. Prescriptions: Vdsuibdg-Lyhgtkujv-Fa Otic [Cortisporin Otic Soln] 4 drops BOTH EARS TID 7 Days #20 ml Is patient prescribed a controlled substance at d/c from ED?: No Referrals: Angel Ansari MD [Primary Care Provider] - 1-2 days Time of Disposition: 22:38
[2020-12-07 22:14] LABS: Basophils % (A) 0 %; Eosinophils # (A) 0.1 k/uL (0-0.7); Eosinophils % (A) 1 %; HCT 43.9 % (34.0-46.0); HGB 15.1 gm/dL (11.4-16.0); Lymphocytes # (A) 2.4 k/uL (1.0-4.8); Lymphocytes % (A) 23 %; MCHC 34.4 g/dL (31.0-37.0); Mean Platelet Volume 6.9; Monocytes # (A) 0.4 k/uL (0-1.0); Monocytes % (A) 4 %; Neutrophils # (A) 7.3 k/uL (1.3-7.7); Neutrophils % (A) 70 %; Platelet Count 280 k/uL (150-450); RBC 4.88 m/uL (3.80-5.40); RDW 13.5 % (11.5-15.5); WBC 10.4 k/uL (3.8-10.6)
--- NOTE | 2020-12-07 22:19 | XR ---
EXAMINATION TYPE: XR chest 1V portable DATE OF EXAM: 12/07/2020 COMPARISON: 12/02/2020 HISTORY: Weakness TECHNIQUE: Single view FINDINGS: Heart and mediastinum are normal. Lungs are clear. Diaphragm is normal. Bony thorax appears normal. Pulmonary vascularity is normal. IMPRESSION: Normal chest. No change.
[2020-12-07 22:33] LABS: SARS-CoV-2 RNA Rapid Abbott Not Detected (Not Detectd)
[2020-12-07 22:41] LABS: Calcium 9.8 mg/dL (8.4-10.2); Potassium 4.5 mmol/L (3.5-5.1)
[2020-12-07 22:56] VITALS: BP 120/71; PULSE 79; RESP 17
== END 2020-12-07 22:57 | disposition home or self-care (01) ==
LOC: EC 21:20
DX: H60.92 Unspecified otitis externa, left ear (principal); J44.9 Chronic obstructive pulmonary disease, unspecified; E07.9 Disorder of thyroid, unspecified; F31.9 Bipolar disorder, unspecified; Z90.49 Acquired absence of other specified parts of digestive tract; Z90.710 Acquired absence of both cervix and uterus; F17.200 Nicotine dependence, unspecified, uncomplicated
CPT/HCPCS: 36415; 71045; 80048; 85025; 87081; 87430; 87502; 87635; 99283

== ENCOUNTER 2021-02-04 02:12 | Observation (INO) | payer MEDICARE ==
[2021-02-04] MEDS ORDERED: MORPHINE SULFATE 4 MG/ML SYRINGE IV STA (02:18)
[2021-02-04] MEDS ORDERED: SODIUM CHLORIDE 0.9% 1,000 ML IV STA (02:18)
--- NOTE | 2021-02-04 02:25 | ED ---
Chest Pain HPI - General Chief Complaint: Chest Pain Stated Complaint: Poss STEMI Time Seen by Provider: 02/04/21 02:18 Source: patient, EMS Mode of arrival: EMS Limitations: no limitations - History of Present Illness Initial Comments: this patient is a 60-year-old woman who presents to be evaluated for left-sided chest pain. She states that is been going on 1 week now. MD Complaint: chest pain Onset/Timin -: week(s) Onset: during rest Pain Location: left chest Pain Radiation: none Severity: moderate Quality: aching Consistency: constant Improves With: nothing Worsens With: nothing Treatments Prior to Arrival: aspirin, nitroglycerin, oxygen - Related Data Home Medications Medication Instructions Recorded Confirmed Multivitamins, Thera [Multivitamin 1 tab PO DAILY 05/27/18 02/04/21 (formulary)] Calcium Carbonate [Calcium] 600 mg PO DAILY 12/26/18 02/04/21 Levothyroxine Sodium [Synthroid] 50 mcg PO DAILY 12/26/18 02/04/21 Venlafaxine HCl ER [Effexor XR] 225 mg PO DAILY 12/26/18 02/04/21 Pantoprazole Sodium [Protonix] 40 mg PO BID 05/02/19 02/04/21 lamoTRIgine [LaMICtal] 100 mg PO BID 05/02/19 02/04/21 ARIPiprazole [Abilify] 10 mg PO DAILY 02/04/21 02/04/21 Albuterol Inhaler [Ventolin Hfa 2 puff INHALATION RT-QID PRN 02/04/21 02/04/21 Inhaler] Cholecalciferol [Vitamin D3 (25 25 mcg PO DAILY 02/04/21 02/04/21 Mcg = 1000 Iu)] Cyanocobalamin (Vitamin B-12) 1,000 mcg PO DAILY 02/04/21 02/04/21 [Vitamin B-12] Fluticasone/Umeclidin/Vilanter 1 puff INHALATION RT-DAILY 02/04/21 02/04/21 [Trelegy Ellipta 200-62.5-25] Pyridoxine [Vitamin B-6] 50 mg PO DAILY 02/04/21 02/04/21 Sucralfate [Carafate] 1 gm PO ACHS 02/04/21 02/04/21 Trelegy (Unknown Dose) 1 dose INHALATION DIRECTED 02/04/21 02/04/21 lamoTRIgine [LaMICtal] 25 mg PO BID 02/04/21 02/04/21 Previous Rx's Medication Instructions Recorded cloNIDine HCL 0.1 mg PO TID #0 02/04/21 hydrOXYzine pamoate [Vistaril] 50 mg PO HS #0 02/04/21 Allergies Allergy/AdvReac Type Severity Reaction Status Date / Time No Known Allergies Allergy Verified 02/04/21 06:35 Review of Systems ROS Statement: Those systems with pertinent positive or pertinent negative responses have been documented in the HPI. ROS Other: All systems not noted in ROS Statement are negative. Constitutional: Denies: fever, chills Respiratory: Denies: cough, dyspnea Cardiovascular: Reports: chest pain. Denies: palpitations, edema, syncope Gastrointestinal: Denies: abdominal pain, nausea, vomiting, diarrhea Genitourinary: Denies: dysuria, hematuria Musculoskeletal: Denies: back pain Skin: Denies: rash Neurological: Denies: headache, weakness, numbness EKG Findings - EKG Results: EKG: interpreted by ERMD, sinus rhythm (rate 80 bpm), normal axis - Blocks, [place], Hypertrophy, ST Abn: AV and intraventricular conduction: right bundle branch block (fixed/intermittent, complete/incomplete) (and complete) Chamber hypertrophy or enlargement: right ventricular hypertrophy or enlargement Repolarization changes or abnormalities: nonspecific abnormality, ST segment, and/or T wave, Q-T interval prolongation Past Medical History Past Medical History: COPD, Thyroid Disorder Additional Past Medical History / Comment(s): cysts on (R) kidney. History of Any Multi-Drug Resistant Organisms: None Reported Past Surgical History: Cholecystectomy, Hysterectomy Additional Past Surgical History / Comment(s): parathyroidectomy Past Anesthesia/Blood Transfusion Reactions: No Reported Reaction Past Psychological History: Bipolar Smoking Status: Current every day smoker Past Alcohol Use History: None Reported Past Drug Use History: Opiates, Prescription Drug Abuse - Past Family History Father Family Medical History: Coronary Artery Disease (CAD) Mother Family Medical History: Coronary Artery Disease (CAD) General Exam Limitations: no limitations General appearance: alert, in no apparent distress Head exam: Present: atraumatic, normocephalic Eye exam: Present: normal appearance. Absent: scleral icterus, conjunctival injection Neck exam: Present: normal inspection Respiratory exam: Present: normal lung sounds bilaterally. Absent: respiratory distress, wheezes, rales, rhonchi, stridor Cardiovascular Exam: Present: regular rate, normal rhythm, normal heart sounds. Absent: systolic murmur, diastolic murmur, rubs, gallop GI/Abdominal exam: Present: soft. Absent: distended, tenderness, guarding, rebound, rigid, mass Extremities exam: Present: normal inspection, normal capillary refill. Absent: pedal edema, calf tenderness Back exam: Present: normal inspection. Absent: CVA tenderness (R), CVA tenderness (L) Neurological exam: Present: alert Skin exam: Present: warm, dry, intact, normal color. Absent: rash Course Vital Signs 02/04/21 02/04/21 02/04/21 02:13 02:33 05:07 Temperature 98.7 F Pulse Rate 84 83 84 Respiratory 18 16 16 Rate Blood Pressure 85/71 92/68 103/72 O2 Sat by Pulse 97 96 97 Oximetry 02/04/21 02/04/21 02/04/21 07:26 07:49 08:00 Temperature 98.3 F Pulse Rate 67 71 76 Respiratory 20 Rate Blood Pressure 86/51 O2 Sat by Pulse 96 Oximetry 02/04/21 02/04/21 02/04/21 08:39 12:06 15:30 Temperature Pulse Rate 66 64 62 Respiratory 18 16 Rate Blood Pressure 90/56 99/56 O2 Sat by Pulse 99 99 Oximetry 02/04/21 02/04/21 15:41 16:00 Temperature Pulse Rate 66 71 Respiratory 18 Rate Blood Pressure 113/65 O2 Sat by Pulse 99 Oximetry Disposition Clinical Impression: Chest pain, Tobacco abuse Disposition: ADMITTED IP TO THIS HOSP Condition: Fair Is patient prescribed a controlled substance at d/c from ED?: No
[2021-02-04 02:32] LABS: Basophils % (A) 0 %; Eosinophils # (A) 0.1 k/uL (0-0.7); Eosinophils % (A) 1 %; HGB 13.6 gm/dL (11.4-16.0); Lymphocytes % (A) 19 %; MCH 31.2 pg (25.0-35.0); MCHC 34.8 g/dL (31.0-37.0); MCV 89.6 fL (80.0-100.0); Mean Platelet Volume 6.5; Monocytes # (A) 0.6 k/uL (0-1.0); Monocytes % (A) 6 %; Neutrophils # (A) 7.8 k/uL (1.3-7.7); Neutrophils % (A) 73 %; Platelet Count 318 k/uL (150-450); RBC 4.35 m/uL (3.80-5.40); RDW 12.5 % (11.5-15.5); WBC 10.7 k/uL (3.8-10.6)
[2021-02-04 02:46] LABS: Albumin 3.8 g/dL (3.5-5.0); Calcium 9.6 mg/dL (8.4-10.2); Magnesium 1.7 mg/dL (1.6-2.3); Potassium 3.8 mmol/L (3.5-5.1); Total Bilirubin 0.3 mg/dL (0.2-1.3); Total Protein 6.2 g/dL (6.3-8.2)
--- NOTE | 2021-02-04 02:46 | XR ---
EXAM: XR Chest, 1 View CLINICAL HISTORY: ITS.REASON XR Reason: chest pain TECHNIQUE: Frontal view of the chest. COMPARISON: December 07, 2020 FINDINGS: Lungs: Lung lines are lower than previous with crowding of the bronchovascular markings. No focal infiltrate or consolidation is seen. Pleural space: Unremarkable. No pneumothorax. Heart: The cardiac silhouette is borderline enlarged, exaggerated by large body habitus, portable technique, and low lung volumes. Mediastinum: Unremarkable. Bones/joints: Unremarkable. Upper abdomen: No pneumoperitoneum is seen under the diaphragm. IMPRESSION: 1. The cardiac silhouette is borderline enlarged, exaggerated by large body habitus, portable technique, and low lung volumes. 2. Lung lines are lower than previous with crowding of the bronchovascular markings. No focal infiltrate or consolidation is seen.
[2021-02-04 02:48] LABS: D-Dimer 0.47 mg/L FEU (<0.60); INR 0.9 (<1.2); Prothrombin Time 9.7 sec (9.0-12.0)
[2021-02-04 02:49] LABS: Partial Thromboplastin Time 24.8 sec (22.0-30.0)
[2021-02-04] MEDS ORDERED: NITROGLYCERIN SL TABS 0.4 MG TAB SUBLINGUAL PRN (03:53)
[2021-02-04] MEDS ORDERED: ONDANSETRON ODT 4 MG TAB PO PRN (03:54)
[2021-02-04] MEDS ORDERED: clonazePAM 1 MG TAB PO PRN (03:54)
[2021-02-04] MEDS ORDERED: ALBUTEROL NEBULIZED 2.5 MG/3 ML INHALATION PRN (03:54)
[2021-02-04] MEDS ORDERED: hydrOXYzine pamoate 25 MG CAP PO PRN (03:54)
[2021-02-04] MEDS ORDERED: LEVOTHYROXINE 50 MCG TAB PO SCH (06:30)
[2021-02-04 07:28] VITALS: TEMP 98.3
[2021-02-04] MEDS: IPRATROPIUM 0.5 MG/2.5 ML NEBU INHALATION SCH ×3 (07:47→15:29)
[2021-02-04] MEDS: PANTOPRAZOLE 40 MG TABLET PO SCH ×2 (07:55→07:56)
[2021-02-04] MEDS ORDERED: FORMOTEROL FUMARATE 20 MCG/2 ML NEBU INHALATION SCH (08:00)
[2021-02-04] MEDS ORDERED: CAFFEINE CITRATE 60 MG/3 ML VIAL IV PRN (08:18)
[2021-02-04] MEDS ORDERED: REGADENOSON 0.4 MG/5 ML SYRINGE IV PRN (08:18)
[2021-02-04] MEDS ORDERED: AMINOPHYLLINE 500 MG/20 ML VIAL IV PRN (08:18)
[2021-02-04] MEDS ORDERED: FAMOTIDINE 20 MG TAB PO SCH (09:00)
[2021-02-04] MEDS ORDERED: ARIPiprazole 10 MG TAB PO SCH (09:00)
[2021-02-04] MEDS ORDERED: lamoTRIgine 25 MG TAB PO SCH (09:00)
[2021-02-04] MEDS ORDERED: VENLAFAXINE HCL ER 75 MG CAP PO SCH (09:00)
[2021-02-04] MEDS ORDERED: risperiDONE 1 MG TAB PO SCH (09:00)
[2021-02-04] MEDS ORDERED: lamoTRIgine 100 MG TAB PO SCH (09:00)
[2021-02-04] MEDS ORDERED: CALCIUM CARBONATE 500 MG CHEWABLE PO SCH (09:00)
[2021-02-04 09:13] LABS: Cholesterol 170 mg/dL (<200); HDL Cholesterol 54 mg/dL (40-60); LDL Cholesterol,Calculated 97 mg/dL (0-99); Triglycerides 95 mg/dL (<150)
--- NOTE | 2021-02-04 09:15 | P.CRDCN ---
History of Present Illness History of present illness: HISTORY OF PRESENTING ILLNESS This is a pleasant 60-year-old female past medical history significant for hypertension, COPD on home oxygen, chronic kidney disease, chronic nicotine dependence and bipolar disorder. 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 We have been asked to see in consultation for chest pain. She complains of chest discomfort described as a pressure sensation in the midsternal region that has been intermittent and ongoing for the previous one week. The symptoms are associated with nausea and poor oral intake. Her pain is exacerbated by deep breathing. She denies any change in her breathing. She does wear home oxygen secondary to COPD. She has been experiencing diaphoresis which has been ongoing since she was diagnosed with Covid in November. Her symptoms are not exacerbated by activity or exertion. Yesterday her symptoms seemed to worsen and be more constant prompting her to come to the ER for evaluation. She is currently chest pain-free. She also complains of feeling dizzy and lightheaded when she changes positions at times. DIAGNOSTICS EKG reveals sinus mechanism with incomplete right bundle branch block, evidence of right ventricular hypertrophy and T-wave inversions noted in the anterior leads. Chest xray no acute cardiopulmonary process. Laboratory reviewed, WBC 10.7, hemoglobin 13.6, platelets 318, d-dimer 0.47, sodium 138, potassium 3.8, creatinine 1.26, magnesium 1.7 and cardiac enzymes negative 2. Current cardiac medications include clonidine 0.2 mg 3 times a day. REVIEW OF SYSTEMS At the time of my exam: CONSTITUTIONAL: Denies fever or chills. CARDIOVASCULAR: Denies chest pain, shortness of breath, orthopnea, PND or palpitations. RESPIRATORY: Denies cough. GASTROINTESTINAL: Denies abdominal pain, diarrhea, constipation, nausea or vomiting. MUSCULOSKELETAL: Denies myalgias. NEUROLOGIC: Denies numbness, tingling, headacbe or weakness. ENDOCRINE: Denies fatigue, weight change, polydipsia or polyurina. GENITOURINARY: Denies burning, hematuria or urgency with micturation. HEMATOLOGIC: Denies history of anemia or bleeding. PHYSICAL EXAMINATION Blood pressure 90/56 heart rate 66 afebrile and maintaining oxygen saturation on nasal cannula. CONSTITUTIONAL: No apparent distress. HEENT: Head is normocephalic. Pupils are equal, round. Sclerae anicteric. Mucous membranes of the mouth are moist. No JVD. No carotid bruit. CHEST EXAMINATION: Lungs are clear to auscultation. No chest wall tenderness is noted on palpation or with deep breathing. HEART EXAMINATION: Regular rate and rhythm. S1, S2 heard. No murmurs, gallops or rub. ABDOMEN: Soft, nontender. Positive bowel sounds. EXTREMITIES: 2+ peripheral pulses, no lower extremity edema and no calf tenderness. NEUROLOGIC EXAMINATION: Patient is awake, alert and oriented x3. ASSESSMENT Chest pain, atypical Hypertension on clonidine, has been hypotensive since admission Chronic kidney disease COPD on home oxygen Bipolar disorder PLAN An acute coronary event has been ruled out. Obtain 2-D echocardiogram and Doppler study to assess cardiac structure and function. Perform Lexiscan stress test to assess for reversible cardiac ischemia. Given blood pressure readings since admission and symptoms of dizziness. Recommend discontinuation of clonidine. This should be done as a taper. If stress test is normal she may be discharged home from a cardiac perspective. Thank you kindly for this consultation. Nurse Practitioner note has been reviewed, I agree with a documented findings and plan of care. Patient was seen and examined. Past Medical History Past Medical History: COPD, Thyroid Disorder Additional Past Medical History / Comment(s): cysts on (R) kidney. History of Any Multi-Drug Resistant Organisms: None Reported Past Surgical History: Cholecystectomy, Hysterectomy Additional Past Surgical History / Comment(s): parathyroidectomy Past Anesthesia/Blood Transfusion Reactions: No Reported Reaction Past Psychological History: Bipolar Smoking Status: Current every day smoker Past Alcohol Use History: None Reported Past Drug Use History: Opiates, Prescription Drug Abuse - Past Family History Father Family Medical History: Coronary Artery Disease (CAD) Mother Family Medical History: Coronary Artery Disease (CAD) Medications and Allergies Home Medications Medication Instructions Recorded Confirmed Type Multivitamins, Thera [Multivitamin 1 tab PO DAILY 05/27/18 02/04/21 History (formulary)] Calcium Carbonate [Calcium] 600 mg PO DAILY 12/26/18 02/04/21 History Levothyroxine Sodium [Synthroid] 50 mcg PO DAILY 12/26/18 02/04/21 History Venlafaxine HCl ER [Effexor XR] 225 mg PO DAILY 12/26/18 02/04/21 History Pantoprazole Sodium [Protonix] 40 mg PO BID 05/02/19 02/04/21 History lamoTRIgine [LaMICtal] 100 mg PO BID 05/02/19 02/04/21 History ARIPiprazole [Abilify] 10 mg PO DAILY 02/04/21 02/04/21 History Albuterol Inhaler [Ventolin Hfa 2 puff INHALATION RT-QID PRN 02/04/21 02/04/21 History Inhaler] Cholecalciferol [Vitamin D3 (25 25 mcg PO DAILY 02/04/21 02/04/21 History Mcg = 1000 Iu)] Cyanocobalamin (Vitamin B-12) 1,000 mcg PO DAILY 02/04/21 02/04/21 History [Vitamin B-12] Pyridoxine [Vitamin B-6] 50 mg PO DAILY 02/04/21 02/04/21 History Sucralfate [Carafate] 1 gm PO ACHS 02/04/21 02/04/21 History Trelegy (Unknown Dose) 1 dose INHALATION DIRECTED 02/04/21 02/04/21 History cloNIDine HCL 0.2 mg PO TID 02/04/21 02/04/21 History hydrOXYzine pamoate [Vistaril] 100 mg PO HS 02/04/21 02/04/21 History lamoTRIgine [LaMICtal] 25 mg PO BID 02/04/21 02/04/21 History Allergies Allergy/AdvReac Type Severity Reaction Status Date / Time No Known Allergies Allergy Verified 02/04/21 06:35 Physical Exam Vitals: Vital Signs Temp Pulse Resp BP Pulse Ox 02/04/21 08:00 76 02/04/21 07:49 71 02/04/21 07:26 98.3 F 67 20 86/51 96 02/04/21 05:07 84 16 103/72 97 02/04/21 02:33 83 16 92/68 96 02/04/21 02:13 98.7 F 84 18 85/71 97 Intake and Output 02/03/21 02/04/21 02/04/21 22:59 06:59 14:59 Other: Weight 72.575 kg Results 02/04/21 02:21 02/04/21 02:21 Cardiac Enzymes 02/04/21 02/04/21 02/04/21 Range/Units 02:21 02:21 05:19 AST 25 (14-36) U/L Troponin I <0.012 <0.012 (0.000-0.034) ng/mL Coagulation 02/04/21 Range/Units 02:21 PT 9.7 (9.0-12.0) sec APTT 24.8 (22.0-30.0) sec CBC 02/04/21 Range/Units 02:21 WBC 10.7 H (3.8-10.6) k/uL RBC 4.35 (3.80-5.40) m/uL Hgb 13.6 (11.4-16.0) gm/dL Hct 39.0 (34.0-46.0) % Plt Count 318 (150-450) k/uL Comprehensive Metabolic Panel 02/04/21 Range/Units 02:21 Sodium 138 (137-145) mmol/L Potassium 3.8 (3.5-5.1) mmol/L Chloride 108 H (98-107) mmol/L Carbon Dioxide 25 (22-30) mmol/L BUN 20 H (7-17) mg/dL Creatinine 1.26 H (0.52-1.04) mg/dL Glucose 99 (74-99) mg/dL Calcium 9.6 (8.4-10.2) mg/dL AST 25 (14-36) U/L ALT 19 (4-34) U/L Alkaline Phosphatase 135 H (38-126) U/L Total Protein 6.2 L (6.3-8.2) g/dL Albumin 3.8 (3.5-5.0) g/dL Current Medications Generic Name Dose Route Start Last Admin Trade Name Freq PRN Reason Stop Dose Admin Albuterol Sulfate 2.5 mg 02/04/21 03:54 Albuterol Nebulized 2.5 Mg/3 Ml INHALATION RT-Q4H PRN Shortness Of Breath Aripiprazole 10 mg 02/04/21 09:00 Aripiprazole 10 Mg Tab PO DAILY COUNT INCLUDES THE [facility] Aspirin 325 mg 02/05/21 09:00 Aspirin 325 Mg Tab PO DAILY COUNT INCLUDES THE [facility] Calcium Carbonate/Glycine 500 mg 02/04/21 09:00 02/04/21 07:55 Calcium Carbonate 500 Mg Chewable PO 500 mg DAILY NEERU Administration Formoterol Fumarate 20 mcg 02/04/21 08:00 02/04/21 07:47 Formoterol Fumarate 20 Mcg/2 Ml Nebu INHALATION 20 mcg RT-BID NEERU Administration Hydroxyzine Pamoate 50 mg 02/04/21 03:54 Hydroxyzine Pamoate 25 Mg Cap PO HS PRN SLEEP Ipratropium [place] 0.5 mg 02/04/21 08:00 02/04/21 07:47 Ipratropium 0.5 Mg/2.5 Ml Nebu INHALATION 0.5 mg RT-QID NEERU Administration Lamotrigine 125 mg 02/04/21 09:00 02/04/21 07:55 Lamotrigine 25 Mg Tab PO 125 mg BID NEERU Administration Levothyroxine Sodium 50 mcg 02/04/21 06:30 02/04/21 07:55 Levothyroxine 50 Mcg Tab PO 50 mcg DAILY@0630 NEERU Administration Nitroglycerin 0.4 mg 02/04/21 03:53 Nitroglycerin Sl Tabs 0.4 Mg Tab SUBLINGUAL Q5M PRN Chest Pain Pantoprazole Sodium 40 mg 02/04/21 07:30 02/04/21 07:56 Pantoprazole 40 Mg Tablet PO 40 mg AC-BID NEERU Administration Venlafaxine HCl 375 mg 02/04/21 09:00 Venlafaxine Hcl Er 75 Mg Cap PO DAILY NEERU Intake and Output 02/03/21 02/04/21 02/04/21 22:59 06:59 14:59 Other: Weight 72.575 kg 02/04/21 02:21 02/04/21 02:21
--- NOTE | 2021-02-04 12:38 | P.STRESS ---
- Stress Test Note Stress Test Results/Findings: Exam Performed: NM stress lexiscan cardiolite Exam Date: 02/04/21 Reason for Exam: Chest Pain Height: 5 ft Weight: 72.57 kg Protocol: Lexiscan Stage: NA Duration of Exercise: NA Resting Heart Rate: 64 Resting Blood Pressure: 98/53 Maximum Achieved Heart Rate: 85 Maximum Achieved Blood Pressure: 98/53 85% PMHR: 137 100% PMHR: 161 METS: NA Technologist Comment: Stress Test Results/Findings: At baseline EKG showed oral sinus rhythm, normal axis, incomplete right bundle branch block with T-wave inversion in V1, V2 Patient recieved IV infusion of Lexiscan 0.4mg and at peak infusion EKG showed no significant change from baseline Conclusions: 1. Normal EKG response to Lexiscan infusion 2. Nuclear imaging to be reported separately.
--- NOTE | 2021-02-04 13:16 | NM ---
EXAMINATION TYPE: NM stress lexiscan cardiolite DATE OF EXAM: 02/04/2021 COMPARISON: NONE HISTORY: Chest pain and palpitations. History of hypertension, COPD, tobacco use, and family history of coronary artery disease. TECHNIQUE: After the intravenous administration of 9.66 mCi Tc 99m Sestamibi - Cardiolite resting SP ECT images acquired 45 minutes post injection. The patient received 0.4mg Lexiscan, 25.5 mCi Tc 99m Sestamibi - Stress images obtained [address] injection FINDINGS: Review of stress and rest SPECT images demonstrates no distinct perfusion abnormality. Gated analysi s shows normal wall motion with an estimated left ventricular ejection fraction of 62 %. IMPRESSION: No scintigraphic evidence for reversible ischemia.
--- NOTE | 2021-02-04 14:27 | P.HPIM ---
History of Present Illness H&P Date: 02/04/21 Chief Complaint: Chest pain History and physical and Discharge Summary This is a 60-year-old female with past medical history of COPD, chronic kidney d isease, hypothyroidism, chronic bilateral leg pain/back pain, bipolar disorder, ongoing nicotine dependence, hypertension, past history of prescription drug abuse and multiple other medical issues presented to the ER with complaints of midsternal radiating to left-sided chest pain/pressure 1 week, intermittently accompanied by nausea. Denies cough congestion. Denies lightheadedness, dizziness or focal deficits. Afebrile, borderline elevation of WBC. EKG reporting sinus rhythm with incomplete right bundle branch block, right ventricular hypertrophy with nonspecific anterior T-wave abnormalities. Chest x-ray reported crowding of the bronchovesicular markings, no focal in foil cutter consolidation seen. Hematology, coagulation and chemistry panel is unremarkable with the exception of BUN 20, creatinine 1.26(baseline), alk phos 135, troponins negative 3. Currently chest pain-free. Evaluated by cardiology, echo and Lexiscan stress test ordered. Borderline hypotension, systolic blood pressure ranging from 80- 103, in a patient on clonidine. Review of Systems ROS Statement: Those systems with pertinent positive or pertinent negative responses have been documented in the HPI. ROS Other: All systems not noted in ROS Statement are negative. Past Medical History Past Medical History: COPD, Thyroid Disorder Additional Past Medical History / Comment(s): cysts on (R) kidney. History of Any Multi-Drug Resistant Organisms: None Reported Past Surgical History: Cholecystectomy, Hysterectomy Additional Past Surgical History / Comment(s): parathyroidectomy Past Anesthesia/Blood Transfusion Reactions: No Reported Reaction Past Psychological History: Bipolar Smoking Status: Current every day smoker Past Alcohol Use History: None Reported Past Drug Use History: Opiates, Prescription Drug Abuse - Past Family History Father Family Medical History: Coronary Artery Disease (CAD) Mother Family Medical History: Coronary Artery Disease (CAD) Medications and Allergies Home Medications Medication Instructions Recorded Confirmed Type Multivitamins, Thera [Multivitamin 1 tab PO DAILY 05/27/18 02/04/21 History (formulary)] Calcium Carbonate [Calcium] 600 mg PO DAILY 12/26/18 02/04/21 History Levothyroxine Sodium [Synthroid] 50 mcg PO DAILY 12/26/18 02/04/21 History Venlafaxine HCl ER [Effexor XR] 225 mg PO DAILY 12/26/18 02/04/21 History Pantoprazole Sodium [Protonix] 40 mg PO BID 05/02/19 02/04/21 History lamoTRIgine [LaMICtal] 100 mg PO BID 05/02/19 02/04/21 History ARIPiprazole [Abilify] 10 mg PO DAILY 02/04/21 02/04/21 History Albuterol Inhaler [Ventolin Hfa 2 puff INHALATION RT-QID PRN 02/04/21 02/04/21 History Inhaler] Cholecalciferol [Vitamin D3 (25 25 mcg PO DAILY 02/04/21 02/04/21 History Mcg = 1000 Iu)] Cyanocobalamin (Vitamin B-12) 1,000 mcg PO DAILY 02/04/21 02/04/21 History [Vitamin B-12] Pyridoxine [Vitamin B-6] 50 mg PO DAILY 02/04/21 02/04/21 History Sucralfate [Carafate] 1 gm PO ACHS 02/04/21 02/04/21 History Trelegy (Unknown Dose) 1 dose INHALATION DIRECTED 02/04/21 02/04/21 History cloNIDine HCL 0.1 mg PO TID #0 02/04/21 02/04/21 Rx hydrOXYzine pamoate [Vistaril] 50 mg PO HS #0 02/04/21 02/04/21 Rx lamoTRIgine [LaMICtal] 25 mg PO BID 02/04/21 02/04/21 History Allergies Allergy/AdvReac Type Severity Reaction Status Date / Time No Known Allergies Allergy Verified 02/04/21 06:35 Physical Exam Vitals: Vital Signs Temp Pulse Resp BP Pulse Ox 02/04/21 08:39 66 18 90/56 99 02/04/21 08:00 76 02/04/21 07:49 71 02/04/21 07:26 98.3 F 67 20 86/51 96 02/04/21 05:07 84 16 103/72 97 02/04/21 02:33 83 16 92/68 96 02/04/21 02:13 98.7 F 84 18 85/71 97 Intake and Output 02/03/21 02/04/21 02/04/21 22:59 06:59 14:59 Other: Weight 72.575 kg 72.57 kg GENERAL: Pleasant 60-year-old, sitting up in bed, no acute distress HEAD: Atraumatic, normocephalic. EYES: Pupils equal round and reactive to light, extraocular movements intact, sclera anicteric, conjunctiva are normal. ENT:oropharynx clear without exudates. NECK: Normal range of motion, supple without lymphadenopathy or JVD LUNGS: Good air entry bilateral .Breath sounds clear to auscultation, bilateral bases diminished HEART: Regular rate and rhythm without murmurs, rubs or gallops.S1S2 Normal ABDOMEN: Soft, nontender, normoactive bowel sounds. No guarding, no rebound. No masses appreciated. EXTREMITIES: Normal range of motion, no pitting or edema. No clubbing or cyanosis. NEUROLOGICAL: Cranial nerves II through XII grossly intact. Normal speech, normal gait. PSYCH: Normal mood, normal affect. SKIN: Warm, Dry, normal turgor, no rashes noted. Results CBC & Chem 7: 02/04/21 02:21 02/04/21 02:21 Labs: Abnormal Lab Results - Last 24 Hours (Table) 02/04/21 02/04/21 Range/Units 02:21 02:21 WBC 10.7 H (3.8-10.6) k/uL Neutrophils # 7.8 H (1.3-7.7) k/uL Chloride 108 H (98-107) mmol/L BUN 20 H (7-17) mg/dL Creatinine 1.26 H (0.52-1.04) mg/dL Alkaline Phosphatase 135 H (38-126) U/L Total Protein 6.2 L (6.3-8.2) g/dL Assessment and Plan Assessment: Acute chest pain, negative troponins, stress tests pending Hypotension clonidine dose decreased -further tapering off in outpatient in clinic COPD, stable Hypothyroidism Ongoing nicotine dependence Chronic kidney disease,Stage III Gastroesophageal reflux disease Bipolar disorder History of prescription drug abuse Obesity Plan: Continue on current medication regime ,monitoring and symptomatic treatment.significant clinical improvement .Evaluated by cardiology, physical and Lexiscan stress test ordered. Patient will be discharged home today in a stable condition with guarded prognosis pending stress test results, final DC recommendations and clearance from cardiology. Discharge Medication List Multivitamins, Thera [Multivitamin (formulary)] 1 tab PO DAILY 05/27/18 [History] Calcium Carbonate [Calcium] 600 mg PO DAILY 12/26/18 [History] Levothyroxine Sodium [Synthroid] 50 mcg PO DAILY 12/26/18 [History] Venlafaxine HCl ER [Effexor XR] 225 mg PO DAILY 12/26/18 [History] Pantoprazole Sodium [Protonix] 40 mg PO BID 05/02/19 [History] lamoTRIgine [LaMICtal] 100 mg PO BID 05/02/19 [History] ARIPiprazole [Abilify] 10 mg PO DAILY 02/04/21 [History] Albuterol Inhaler [Ventolin Hfa Inhaler] 2 puff INHALATION RT-QID PRN 02/04/21 [History] Cholecalciferol [Vitamin D3 (25 Mcg = 1000 Iu)] 25 mcg PO DAILY 02/04/21 [History] Cyanocobalamin (Vitamin B-12) [Vitamin B-12] 1,000 mcg PO DAILY 02/04/21 [History] Pyridoxine [Vitamin B-6] 50 mg PO DAILY 02/04/21 [History] Sucralfate [Carafate] 1 gm PO ACHS 02/04/21 [History] Trelegy (Unknown Dose) 1 dose INHALATION DIRECTED 02/04/21 [History] cloNIDine HCL 0.1 mg PO TID #0 02/04/21 [Rx] hydrOXYzine pamoate [Vistaril] 50 mg PO HS #0 02/04/21 [Rx] lamoTRIgine [LaMICtal] 25 mg PO BID 02/04/21 [History] The impression and plan of care has been dictated as directed. : I performed a history and examination of this patient, discussed the same with the dictator. I agree with the dictator's note ,documented as a scribe. Any additional findings or plans will be noted.
[2021-02-04 17:37] VITALS: RESP 18
[2021-02-04 19:33] VITALS: BP 118/70; PULSE 82
--- NOTE | 2021-02-05 07:25 | ECHOF ---
Referral Reason:cp sob MEASUREMENTS -------- HEIGHT: 152.4 cm WEIGHT: 72.6 kg BP: IVSd: 1.1 cm (0.6 - 1.1) LVIDd: 3.7 cm (3.9 - 5.3) LVPWd: 1.2 cm (0.6 - 1.1) IVSs: 1.3 cm LVIDs: 2.7 cm LVPWs: 1.2 cm LAESV Index (A-L): 23.97 ml/m Ao Diam: 2.9 cm (2.0 - 3.7) MV EXCURSION: 19.089 mm (> 18.000) MV EF SLOPE: 135 mm/s (70 - 150) EPSS: 0.3 cm MV E Saad: 0.81 m/s MV DecT: 165 ms MV A Saad: 0.66 m/s MV E/A Ratio: 1.23 RAP: 5.00 mmHg RVSP: 22.27 mmHg FINDINGS -------- Sinus rhythm. This was a technically adequate study. LV size, wall thickness and systolic function are normal, with an EF greater than 55%. The left joellen tricular size is normal. The diastolic filling pattern is normal for the age of the patient 13.61. The right ventricle is normal in size. Normal LA size by volume 22+/-6 ml/m2. The right atrial size is normal. The aortic valve is trileaflet, and appears structurally normal. No aortic stenosis or regurgitation. The mitral valve is normal. Mild mitral regurgitation is present. The tricuspid valve appears structurally normal. Mild tricuspid regurgitation present. Right vent ricular systolic pressure is normal at < 35 mmHg. There is no pulmonic regurgitation present. The aortic root size is normal. There is no pericardial effusion. CONCLUSIONS -------- 1. LV size, wall thickness and systolic function are normal, with an EF greater than 55%. 2. Normal LA size by volume 22+/-6 ml/m2. 3. The aortic valve is trileaflet, and appears structurally normal. No aortic stenosis or regurgitati on. 4. Mild mitral regurgitation is present. 5. Mild tricuspid regurgitation present. 6. There is no pericardial effusion. RIDE MECHANIC: Whit Hernandez RDCS
[2021-02-05] MEDS ORDERED: ASPIRIN 81 MG PO SCH (09:00)
[2021-02-05] MEDS ORDERED: ASPIRIN 325 MG TAB PO SCH (09:00)
== END 2021-02-04 19:30 | disposition home or self-care (01) ==
LOC: EC 02:12 → 1SOBS 03:54 → 6NMEDSUR 17:29
PROVIDERS: ADMIT Family Medicine; ATTEND Family Medicine
DX: R07.89 Other chest pain (principal); I95.9 Hypotension, unspecified; R11.0 Nausea; I12.9 Hypertensive chronic kidney disease with stage 1 through stage 4 chronic kidney disease, or unspecified chronic kidney disease; N18.30 Chronic kidney disease, stage 3 unspecified; J44.9 Chronic obstructive pulmonary disease, unspecified; I08.1 Rheumatic disorders of both mitral and tricuspid valves; I45.10 Unspecified right bundle-branch block; F31.9 Bipolar disorder, unspecified; E89.2 Postprocedural hypoparathyroidism; F17.200 Nicotine dependence, unspecified, uncomplicated; Z99.81 Dependence on supplemental oxygen; E03.9 Hypothyroidism, unspecified; G89.29 Other chronic pain; M79.604 Pain in right leg; M79.605 Pain in left leg; M54.9 Dorsalgia, unspecified; N28.1 Cyst of kidney, acquired; K21.9 Gastro-esophageal reflux disease without esophagitis; E66.9 Obesity, unspecified; Z68.31 Body mass index [BMI] 31.0-31.9, adult; Z79.890 Hormone replacement therapy; Z79.51 Long term (current) use of inhaled steroids; Z79.899 Other long term (current) drug therapy; Z90.49 Acquired absence of other specified parts of digestive tract; Z90.710 Acquired absence of both cervix and uterus; Z86.16 Personal history of COVID-19; Z86.59 Personal history of other mental and behavioral disorders; Z82.49 Family history of ischemic heart disease and other diseases of the circulatory system
CPT/HCPCS: 96360; 96361; 99285; 36415; 94640; 93005; 93017; 93306; 85379; 80061; 80053; 83735; 84484; 85025; 85610; 85730; 87636; 71045; 78452; G0378 ×2; A9500; J2785

== ENCOUNTER 2021-02-21 13:50 | Emergency (ER) | payer MEDICARE ==
[2021-02-21 14:02] VITALS: TEMP 98.7
[2021-02-21] MEDS ORDERED: SODIUM CHLORIDE 0.9% 1,000 ML IV STA (14:15)
[2021-02-21] MEDS ORDERED: SODIUM CHLORIDE 0.9% 500 ML 500 ML IV STA (14:15)
[2021-02-21 14:54] LABS: Basophils # (A) 0.1 k/uL (0-0.2); Basophils % (A) 1 %; Eosinophils # (A) 0.1 k/uL (0-0.7); Eosinophils % (A) 1 %; HCT 39.2 % (34.0-46.0); HGB 13.9 gm/dL (11.4-16.0); Lymphocytes # (A) 2.1 k/uL (1.0-4.8); Lymphocytes % (A) 20 %; MCH 31.6 pg (25.0-35.0); MCHC 35.5 g/dL (31.0-37.0); Mean Platelet Volume 6.9; Monocytes # (A) 0.6 k/uL (0-1.0); Monocytes % (A) 6 %; Neutrophils # (A) 7.4 k/uL (1.3-7.7); Neutrophils % (A) 71 %; Platelet Count 310 k/uL (150-450); RDW 12.4 % (11.5-15.5); WBC 10.5 k/uL (3.8-10.6)
[2021-02-21 15:24] LABS: Albumin 4.1 g/dL (3.5-5.0); Calcium 10.2 mg/dL (8.4-10.2); Potassium 4.5 mmol/L (3.5-5.1); Total Bilirubin 0.4 mg/dL (0.2-1.3); Total Protein 6.6 g/dL (6.3-8.2)
[2021-02-21] MEDS ORDERED: IPRATROPIUM-ALBUTEROL 3 ML NEB INHALATION STA (15:27)
[2021-02-21 15:31] VITALS: RESP 18
--- NOTE | 2021-02-21 15:37 | CT ---
EXAMINATION TYPE: CT brain wo con DATE OF EXAM: 02/21/2021 COMPARISON: 12/02/2020 HISTORY: Altered mental status. CT DLP: 1059.[address] of the brain was performed. The ventricles, basal cisterns and sulci overlying the cerebral convexities demonstrate mild enlargem ent. There is no evidence for intracranial hemorrhage or sulcal effacement. There is decreased attenuation about the periventricular white matter and deep white matter of both c erebral hemispheres, compatible with chronic small vessel ischemia. Differential diagnosis does inclu de demyelination. No mass effects are seen.No midline shift. Osseous calvarium is intact. If symptoms persist consider MRI. IMPRESSION: 1. Age related atrophic and chronic small vessel ischemic change without acute intracranial process s een at this time.
--- NOTE | 2021-02-21 16:09 | XR ---
EXAMINATION TYPE: XR chest 2V DATE OF EXAM: 02/21/2021 COMPARISON: Prior chest x-ray 02/04/2021 HISTORY: Weakness and dizziness TECHNIQUE: Frontal and lateral views of the chest are obtained. FINDINGS: There is no focal air space opacity, pleural effusion, or pneumothorax seen. The cardiac silhouette size is within normal limits. Patient is rotated. There are overlying leads. Aorta is den se. The osseous structures are intact. IMPRESSION: No acute cardiopulmonary process.
--- NOTE | 2021-02-21 16:27 | ED ---
Dizziness HPI - General Chief Complaint: Dizziness Stated Complaint: Dizziness, Fall, SHEELA Time Seen by Provider: 02/21/21 13:50 Source: patient, EMS, RN notes reviewed Mode of arrival: EMS - History of Present Illness Initial Comments: This is a 60-year-old female who is brought in by EMS because of syncopal episode at home. She been falling a lot for past 2 days feeling dizzy lightheaded she states she started Abilify several months ago and believes this may be part of the problem she also states she's not been eating and drinking very much. No fevers chills nausea vomiting sweats no focal weakness. No other complaints or modifying factors at this time MD Complaint: dizziness, lightheadedness - Related Data Home Medications Medication Instructions Recorded Confirmed Multivitamins, Thera [Multivitamin 1 tab PO DAILY 05/27/18 02/04/21 (formulary)] Calcium Carbonate [Calcium] 600 mg PO DAILY 12/26/18 02/04/21 Levothyroxine Sodium [Synthroid] 50 mcg PO DAILY 12/26/18 02/04/21 Venlafaxine HCl ER [Effexor XR] 225 mg PO DAILY 12/26/18 02/04/21 Pantoprazole Sodium [Protonix] 40 mg PO BID 05/02/19 02/04/21 lamoTRIgine [LaMICtal] 100 mg PO BID 05/02/19 02/04/21 ARIPiprazole [Abilify] 10 mg PO DAILY 02/04/21 02/04/21 Albuterol Inhaler [Ventolin Hfa 2 puff INHALATION RT-QID PRN 02/04/21 02/04/21 Inhaler] Cholecalciferol [Vitamin D3 (25 25 mcg PO DAILY 02/04/21 02/04/21 Mcg = 1000 Iu)] Cyanocobalamin (Vitamin B-12) 1,000 mcg PO DAILY 02/04/21 02/04/21 [Vitamin B-12] Fluticasone/Umeclidin/Vilanter 1 puff INHALATION RT-DAILY 02/04/21 02/04/21 [Trelegy Ellipta 200-62.5-25] Pyridoxine [Vitamin B-6] 50 mg PO DAILY 02/04/21 02/04/21 Sucralfate [Carafate] 1 gm PO ACHS 02/04/21 02/04/21 Trelegy (Unknown Dose) 1 dose INHALATION DIRECTED 02/04/21 02/04/21 lamoTRIgine [LaMICtal] 25 mg PO BID 02/04/21 02/04/21 Previous Rx's Medication Instructions Recorded cloNIDine HCL 0.1 mg PO TID #0 02/04/21 hydrOXYzine pamoate [Vistaril] 50 mg PO HS #0 02/04/21 Allergies Allergy/AdvReac Type Severity Reaction Status Date / Time No Known Allergies Allergy Verified 02/21/21 14:06 Review of Systems ROS Statement: Those systems with pertinent positive or pertinent negative responses have been documented in the HPI. ROS Other: All systems not noted in ROS Statement are negative. Past Medical History Past Medical History: COPD, Thyroid Disorder Additional Past Medical History / Comment(s): cysts on (R) kidney. History of Any Multi-Drug Resistant Organisms: None Reported Past Surgical History: Cholecystectomy, Hysterectomy Additional Past Surgical History / Comment(s): parathyroidectomy Past Anesthesia/Blood Transfusion Reactions: No Reported Reaction Past Psychological History: Bipolar Smoking Status: Current every day smoker Past Alcohol Use History: None Reported Past Drug Use History: Opiates, Prescription Drug Abuse - Past Family History Father Family Medical History: Coronary Artery Disease (CAD) Additional Family Medical History / Comment(s): Father is of blood cancer. Mother Family Medical History: Coronary Artery Disease (CAD) Additional Family Medical History / Comment(s): Mother is living General Exam - General Exam Comments Initial Comments: This is a well developed well-nourished awake alert oriented 3 female General appearance: alert, in no apparent distress Head exam: Present: atraumatic, normocephalic, normal inspection Eye exam: Present: normal appearance, PERRL, EOMI. Absent: scleral icterus, conjunctival injection, periorbital swelling ENT exam: Present: mucous membranes dry Neck exam: Present: normal inspection. Absent: tenderness, meningismus, lymphadenopathy Respiratory exam: Present: normal lung sounds bilaterally. Absent: respiratory distress, wheezes, rales, rhonchi, stridor Cardiovascular Exam: Present: regular rate, normal rhythm, normal heart sounds. Absent: systolic murmur, diastolic murmur, rubs, gallop, clicks GI/Abdominal exam: Present: soft, normal bowel sounds. Absent: distended, tenderness, guarding, rebound, rigid Extremities exam: Present: normal inspection, full ROM, normal capillary refill. Absent: tenderness, pedal edema, joint swelling, calf tenderness Back exam: Present: normal inspection Neurological exam: Present: alert, oriented X3, CN II-XII intact Psychiatric exam: Present: normal affect, normal mood Skin exam: Present: warm, dry, intact, normal color. Absent: rash Course Vital Signs 02/21/21 02/21/21 02/21/21 13:56 14:20 14:21 Temperature 98.7 F Pulse Rate 62 Pulse Rate [ 62 58 L Palliative Nurse ] Respiratory 18 18 8 L Rate Blood Pressure 107/69 Blood Pressure 130/81 [Left Arm Sitting] Blood Pressure 88/49 [Left Arm Standing] Blood Pressure 133/74 [Left Arm Supine] O2 Sat by Pulse 99 97 Oximetry 02/21/21 02/21/21 02/21/21 15:30 16:13 16:23 Temperature Pulse Rate 98 60 60 Pulse Rate [ Palliative Nurse ] Respiratory 18 Rate Blood Pressure 113/70 Blood Pressure [Left Arm Sitting] Blood Pressure [Left Arm Standing] Blood Pressure [Left Arm Supine] O2 Sat by Pulse 98 Oximetry 02/21/21 16:39 Temperature Pulse Rate 61 Pulse Rate [ Palliative Nurse ] Respiratory 18 Rate Blood Pressure 114/77 Blood Pressure [Left Arm Sitting] Blood Pressure [Left Arm Standing] Blood Pressure [Left Arm Supine] O2 Sat by Pulse 99 Oximetry EKG Findings - EKG Results: EKG: interpreted by ERMD, sinus rhythm (Sinus bradycardia rate of 58. Interval 170 QRS duration 102 QT since QTC 4:30/429 incomplete right bundle-branch block) Medical Decision Making - Medical Decision Making Reevaluation patient reveals she is much improved after IV hydration. Patient will be discharged with follow-up tomorrow as planned. The presentation consistent with dehydration - Lab Data Result diagrams: 02/21/21 14:31 02/21/21 14:31 Lab Results 02/21/21 02/21/21 02/21/21 Range/Units 14:31 14:31 14:31 WBC 10.5 (3.8-10.6) k/uL RBC 4.40 (3.80-5.40) m/uL Hgb 13.9 (11.4-16.0) gm/dL Hct 39.2 (34.0-46.0) % MCV 89.0 (80.0-100.0) fL MCH 31.6 (25.0-35.0) pg MCHC 35.5 (31.0-37.0) g/dL RDW 12.4 (11.5-15.5) % Plt Count 310 (150-450) k/uL MPV 6.9 Neutrophils % 71 % Lymphocytes % 20 % Monocytes % 6 % Eosinophils % 1 % Basophils % 1 % Neutrophils # 7.4 (1.3-7.7) k/uL Lymphocytes # 2.1 (1.0-4.8) k/uL Monocytes # 0.6 (0-1.0) k/uL Eosinophils # 0.1 (0-0.7) k/uL Basophils # 0.1 (0-0.2) k/uL Sodium 138 (137-145) mmol/L Potassium 4.5 (3.5-5.1) mmol/L Chloride 110 H (98-107) mmol/L Carbon Dioxide 18 L (22-30) mmol/L Anion Gap 10 mmol/L BUN 25 H (7-17) mg/dL Creatinine 1.60 H (0.52-1.04) mg/dL Est GFR (CKD-EPI)AfAm 40 (>60 ml/min/1.73 sqM) Est GFR (CKD-EPI)NonAf 35 (>60 ml/min/1.73 sqM) Glucose 85 (74-99) mg/dL Plasma Lactic Acid Jorge 1.8 (0.7-2.0) mmol/L Calcium 10.2 (8.4-10.2) mg/dL Total Bilirubin 0.4 (0.2-1.3) mg/dL AST 29 (14-36) U/L ALT 23 (4-34) U/L Alkaline Phosphatase 144 H (38-126) U/L Troponin I (0.000-0.034) ng/mL Total Protein 6.6 (6.3-8.2) g/dL Albumin 4.1 (3.5-5.0) g/dL 02/21/21 Range/Units 14:31 WBC (3.8-10.6) k/uL RBC (3.80-5.40) m/uL Hgb (11.4-16.0) gm/dL Hct (34.0-46.0) % MCV (80.0-100.0) fL MCH (25.0-35.0) pg MCHC (31.0-37.0) g/dL RDW (11.5-15.5) % Plt Count (150-450) k/uL MPV Neutrophils % % Lymphocytes % % Monocytes % % Eosinophils % % Basophils % % Neutrophils # (1.3-7.7) k/uL Lymphocytes # (1.0-4.8) k/uL Monocytes # (0-1.0) k/uL Eosinophils # (0-0.7) k/uL Basophils # (0-0.2) k/uL Sodium (137-145) mmol/L Potassium (3.5-5.1) mmol/L Chloride (98-107) mmol/L Carbon Dioxide (22-30) mmol/L Anion Gap mmol/L BUN (7-17) mg/dL Creatinine (0.52-1.04) mg/dL Est GFR (CKD-EPI)AfAm (>60 ml/min/1.73 sqM) Est GFR (CKD-EPI)NonAf (>60 ml/min/1.73 sqM) Glucose (74-99) mg/dL Plasma Lactic Acid Jorge (0.7-2.0) mmol/L Calcium (8.4-10.2) mg/dL Total Bilirubin (0.2-1.3) mg/dL AST (14-36) U/L ALT (4-34) U/L Alkaline Phosphatase (38-126) U/L Troponin I <0.012 (0.000-0.034) ng/mL Total Protein (6.3-8.2) g/dL Albumin (3.5-5.0) g/dL - Radiology Data Radiology results: report reviewed (Imaging no acute findings), image reviewed Disposition Clinical Impression: Orthostatic hypotension, Dehydration Disposition: HOME SELF-CARE Condition: Good Instructions (If sedation given, give patient instructions): Dizziness (ED), Dehydration (ED) Is patient prescribed a controlled substance at d/c from ED?: No Referrals: Angel Ansari MD [Primary Care Provider] - 1-2 days
[2021-02-21 18:48] VITALS: BP 105/65; PULSE 66
== END 2021-02-21 18:43 | disposition home or self-care (01) ==
LOC: EC 13:50
DX: I95.1 Orthostatic hypotension (principal); E86.0 Dehydration; I67.82 Cerebral ischemia; J44.9 Chronic obstructive pulmonary disease, unspecified; F17.200 Nicotine dependence, unspecified, uncomplicated; Z79.899 Other long term (current) drug therapy; Z82.49 Family history of ischemic heart disease and other diseases of the circulatory system
CPT/HCPCS: 70450; 71046; 80053; 83605; 84484; 85025; 93005; 94640; 96360; 96361; 99284

== ENCOUNTER 2021-03-12 15:33 | Inpatient (IN) | payer MEDICARE ==
[2021-03-12] MEDS ORDERED: SODIUM CHLORIDE 0.9% 1,000 ML IV STA (15:35)
[2021-03-12 15:39] LABS: Glucose,Whole Blood 121 mg/dL (75-99)
[2021-03-12] MEDS ORDERED: NALOXONE 0.4 MG/ML 1 ML VIAL IVP STA (15:42)
[2021-03-12 15:48] LABS: Basophils % (A) 0 %; Eosinophils # (A) 0.1 k/uL (0-0.7); Eosinophils % (A) 1 %; HCT 35.2 % (34.0-46.0); HGB 12.6 gm/dL (11.4-16.0); Lymphocytes # (A) 1.8 k/uL (1.0-4.8); Lymphocytes % (A) 19 %; MCH 31.4 pg (25.0-35.0); MCHC 35.7 g/dL (31.0-37.0); Mean Platelet Volume 6.7; Monocytes # (A) 0.5 k/uL (0-1.0); Monocytes % (A) 5 %; Neutrophils # (A) 6.9 k/uL (1.3-7.7); Neutrophils % (A) 74 %; Platelet Count 263 k/uL (150-450); RDW 12.4 % (11.5-15.5); WBC 9.4 k/uL (3.8-10.6)
[2021-03-12 15:49] LABS: VBG PH 7.34 (7.31-7.41)
--- NOTE | 2021-03-12 15:49 | ED ---
General Adult HPI - General Stated complaint: overdose Time Seen by Provider: 03/12/21 15:35 Source: EMS, RN notes reviewed, old records reviewed Mode of arrival: EMS Limitations: altered mental status - History of Present Illness Initial comments: 61-year-old female with altered mental status. Initial call was for fall and decreased level of consciousness. Patient had initially been able to communicate EMS that she had taken multiple doses of Klonopin in an attempt to sleep. Uncertain if this was a suicide attempt. History is very limited. - Related Data Home Medications Medication Instructions Recorded Confirmed Levothyroxine Sodium [Synthroid] 50 mcg PO DAILY 12/26/18 02/04/21 Pantoprazole Sodium [Protonix] 40 mg PO BID 05/02/19 02/04/21 lamoTRIgine [LaMICtal] 100 mg PO BID 05/02/19 02/04/21 Sucralfate [Carafate] 1 gm PO ACHS 02/04/21 02/04/21 lamoTRIgine [LaMICtal] 25 mg PO BID 02/04/21 02/04/21 Gabapentin 600 mg PO TID PRN 03/12/21 03/12/21 Venlafaxine HCl [Effexor XR] 300 mg PO DAILY 03/12/21 03/12/21 busPIRone HCL 15 mg PO BID 03/12/21 03/12/21 cloNIDine HCL 0.2 mg PO TID 03/12/21 03/12/21 clonazePAM [KlonoPIN] 1 mg PO QID PRN 03/12/21 03/12/21 hydrOXYzine pamoate [Vistaril] 100 mg PO HS 03/12/21 03/12/21 Allergies Allergy/AdvReac Type Severity Reaction Status Date / Time No Known Allergies Allergy Verified 03/12/21 15:35 Review of Systems ROS Statement: Those systems with pertinent positive or pertinent negative responses have been documented in the HPI. ROS Other: All systems not noted in ROS Statement are negative. Past Medical History Past Medical History: COPD, Thyroid Disorder Additional Past Medical History / Comment(s): cysts on (R) kidney. History of Any Multi-Drug Resistant Organisms: None Reported Past Surgical History: Cholecystectomy, Hysterectomy Additional Past Surgical History / Comment(s): parathyroidectomy Past Anesthesia/Blood Transfusion Reactions: No Reported Reaction Past Psychological History: Bipolar Smoking Status: Current every day smoker Past Alcohol Use History: None Reported Past Drug Use History: Opiates, Prescription Drug Abuse - Past Family History Father Family Medical History: Coronary Artery Disease (CAD) Additional Family Medical History / Comment(s): Father is of blood cancer. Mother Family Medical History: Coronary Artery Disease (CAD) Additional Family Medical History / Comment(s): Mother is living General Exam Limitations: altered mental status General appearance: obtunded Head exam: Present: atraumatic, normocephalic Eye exam: Present: EOMI, other (Bilateral pupils are pinpoint) Neck exam: Present: normal inspection. Absent: tenderness, meningismus Respiratory exam: Present: other (Bradypnea). Absent: respiratory distress Cardiovascular Exam: Present: regular rate, normal rhythm GI/Abdominal exam: Present: soft. Absent: distended, tenderness, guarding, rebound Extremities exam: Present: normal capillary refill Neurological exam: Present: other (Patient will withdraw to pain throughout, she will moan to painful stimuli. She does have a positive gag reflex and is breathing spontaneously.). Absent: alert, oriented X3 Skin exam: Present: warm, dry, intact. Absent: cyanosis, diaphoretic Course Vital Signs 03/12/21 03/12/21 03/12/21 15:36 15:38 15:42 Temperature 97.8 F Pulse Rate 58 L 58 L Respiratory 8 L 8 L 8 L Rate Blood Pressure 91/60 97/57 O2 Sat by Pulse 96 96 Oximetry 03/12/21 03/12/21 16:00 16:15 Temperature Pulse Rate 58 L 57 L Respiratory 8 L 6 L Rate Blood Pressure 95/57 91/56 O2 Sat by Pulse 97 97 Oximetry - Reevaluation(s) Reevaluation #1: 03/12/21 17:15 Patient reevaluated, will respond to verbal, answering simple questions. Normal oxygenation, normal respirations. EKG Findings - EKG Comments: EKG Findings:: EKG: Normal sinus rhythm, RSR prime, incomplete right bundle-bra nch block, rate is 62, UT interval 200, QRS duration 114, QTC 485, no ST segment elevation. Medical Decision Making - Medical Decision Making 61-year-old female presenting with suspected overdose. Initial concern was for Klonopin overdose. However the patient is not prescribed Klonopin and upon further history does admit to over taking her prescribed medications but no benzodiazepines or in her system. She has a nonfocal neurologic exam. Stable vitals. She is worked up including, CBC, CMP, drug screen, Tylenol salicylate. Ultimately she has hypokalemia on some mild acute kidney injury. Otherwise laboratory testing is unremarkable. Head CT is negative for intracranial hemorrhage or mass effect. She does become more arousable while in the emergency department. It is still uncertain if this patient had taken his medication and suicide attempt but does admit to over taking her prescribed medication. I did discuss case with Dr. Ansari who will admit for close observation. Psychiatry placed on consult. - Lab Data Result diagrams: 03/12/21 15:40 03/12/21 15:40 Lab Results 03/12/21 03/12/21 03/12/21 Range/Units 15:38 15:40 15:40 WBC 9.4 (3.8-10.6) k/uL RBC 4.00 (3.80-5.40) m/uL Hgb 12.6 (11.4-16.0) gm/dL Hct 35.2 (34.0-46.0) % MCV 88.0 (80.0-100.0) fL MCH 31.4 (25.0-35.0) pg MCHC 35.7 (31.0-37.0) g/dL RDW 12.4 (11.5-15.5) % Plt Count 263 (150-450) k/uL MPV 6.7 Neutrophils % 74 % Lymphocytes % 19 % Monocytes % 5 % Eosinophils % 1 % Basophils % 0 % Neutrophils # 6.9 (1.3-7.7) k/uL Lymphocytes # 1.8 (1.0-4.8) k/uL Monocytes # 0.5 (0-1.0) k/uL Eosinophils # 0.1 (0-0.7) k/uL Basophils # 0.0 (0-0.2) k/uL PT 10.5 (9.0-12.0) sec INR 1.0 (<1.2) VBG pH (7.31-7.41) VBG pCO2 (37-51) mmHg VBG HCO3 (24-28) mmol/L Sodium (137-145) mmol/L Potassium (3.5-5.1) mmol/L Chloride (98-107) mmol/L Carbon Dioxide (22-30) mmol/L Anion Gap mmol/L BUN (7-17) mg/dL Creatinine (0.52-1.04) mg/dL Est GFR (CKD-EPI)AfAm (>60 ml/min/1.73 sqM) Est GFR (CKD-EPI)NonAf (>60 ml/min/1.73 sqM) Glucose (74-99) mg/dL POC Glucose (mg/dL) 121 H (75-99) mg/dL POC Glu Photographic Plate Maker ID Maura Greenwood Plasma Lactic Acid Jorge (0.7-2.0) mmol/L Calcium (8.4-10.2) mg/dL Total Bilirubin (0.2-1.3) mg/dL AST (14-36) U/L ALT (4-34) U/L Alkaline Phosphatase (38-126) U/L Creatine Kinase (30-135) U/L Total Protein (6.3-8.2) g/dL Albumin (3.5-5.0) g/dL Urine Color Urine Appearance (Clear) Urine pH (5.0-8.0) Ur Specific [place] (1.001-1.035) Urine Protein (Negative) Urine Glucose (UA) (Negative) Urine Ketones (Negative) Urine Blood (Negative) Urine Nitrite (Negative) Urine Bilirubin (Negative) Urine Urobilinogen (<2.0) mg/dL Ur Leukocyte Esterase (Negative) Salicylates mg/dL Urine Opiates Screen (NotDetected) Ur Oxycodone Screen (NotDetected) Urine Methadone Screen (NotDetected) Ur Propoxyphene Screen (NotDetected) Acetaminophen ug/mL Ur Barbiturates Screen (NotDetected) U Tricyclic Antidepress (NotDetected) Ur Phencyclidine Scrn (NotDetected) Ur Amphetamines Screen (NotDetected) U Methamphetamines Scrn (NotDetected) U Benzodiazepines Scrn (NotDetected) [place] mmol/L Urine Cocaine Screen (NotDetected) U Marijuana (THC) Screen (NotDetected) Serum Alcohol mg/dL 03/12/21 03/12/21 03/12/21 Range/Units 15:40 15:40 15:40 WBC (3.8-10.6) k/uL RBC (3.80-5.40) m/uL Hgb (11.4-16.0) gm/dL Hct (34.0-46.0) % MCV (80.0-100.0) fL MCH (25.0-35.0) pg MCHC (31.0-37.0) g/dL RDW (11.5-15.5) % Plt Count (150-450) k/uL MPV Neutrophils % % Lymphocytes % % Monocytes % % Eosinophils % % Basophils % % Neutrophils # (1.3-7.7) k/uL Lymphocytes # (1.0-4.8) k/uL Monocytes # (0-1.0) k/uL Eosinophils # (0-0.7) k/uL Basophils # (0-0.2) k/uL PT (9.0-12.0) sec INR (<1.2) VBG pH (7.31-7.41) VBG pCO2 (37-51) mmHg VBG HCO3 (24-28) mmol/L Sodium 140 (137-145) mmol/L Potassium 3.2 L (3.5-5.1) mmol/L Chloride 115 H (98-107) mmol/L Carbon Dioxide 17 L (22-30) mmol/L Anion Gap 8 mmol/L BUN 18 H (7-17) mg/dL Creatinine 1.29 H (0.52-1.04) mg/dL Est GFR (CKD-EPI)AfAm 52 (>60 ml/min/1.73 sqM) Est GFR (CKD-EPI)NonAf 45 (>60 ml/min/1.73 sqM) Glucose 105 H (74-99) mg/dL POC Glucose (mg/dL) (75-99) mg/dL POC Glu Photographic Plate Maker ID Plasma Lactic Acid Jorge 1.0 (0.7-2.0) mmol/L Calcium 9.7 (8.4-10.2) mg/dL Total Bilirubin 0.4 (0.2-1.3) mg/dL AST 24 (14-36) U/L ALT 17 (4-34) U/L Alkaline Phosphatase 127 H (38-126) U/L Creatine Kinase 70 (30-135) U/L Total Protein 5.9 L (6.3-8.2) g/dL Albumin 3.6 (3.5-5.0) g/dL Urine Color Yellow Urine Appearance Clear (Clear) Urine pH 6.0 (5.0-8.0) Ur Specific [place] 1.013 (1.001-1.035) Urine Protein Trace H (Negative) Urine Glucose (UA) Negative (Negative) Urine Ketones Negative (Negative) Urine Blood Negative (Negative) Urine Nitrite Negative (Negative) Urine Bilirubin Negative (Negative) Urine Urobilinogen <2.0 (<2.0) mg/dL Ur Leukocyte Esterase Negative (Negative) Salicylates <1.0 mg/dL Urine Opiates Screen Not Detected (NotDetected) Ur Oxycodone Screen Not Detected (NotDetected) Urine Methadone Screen Not Detected (NotDetected) Ur Propoxyphene Screen Not Detected (NotDetected) Acetaminophen <10.0 ug/mL Ur Barbiturates Screen Not Detected (NotDetected) U Tricyclic Antidepress Not Detected (NotDetected) Ur Phencyclidine Scrn Not Detected (NotDetected) Ur Amphetamines Screen Not Detected (NotDetected) U Methamphetamines Scrn Not Detected (NotDetected) U Benzodiazepines Scrn Not Detected (NotDetected) [place] <0.2 mmol/L Urine Cocaine Screen Not Detected (NotDetected) U Marijuana (THC) Screen Not Detected (NotDetected) Serum Alcohol <10 mg/dL 03/12/21 Range/Units 15:40 WBC (3.8-10.6) k/uL RBC (3.80-5.40) m/uL Hgb (11.4-16.0) gm/dL Hct (34.0-46.0) % MCV (80.0-100.0) fL MCH (25.0-35.0) pg MCHC (31.0-37.0) g/dL RDW (11.5-15.5) % Plt Count (150-450) k/uL MPV Neutrophils % % Lymphocytes % % Monocytes % % Eosinophils % % Basophils % % Neutrophils # (1.3-7.7) k/uL Lymphocytes # (1.0-4.8) k/uL Monocytes # (0-1.0) k/uL Eosinophils # (0-0.7) k/uL Basophils # (0-0.2) k/uL PT (9.0-12.0) sec INR (<1.2) VBG pH 7.34 (7.31-7.41) VBG pCO2 32 L (37-51) mmHg VBG HCO3 17 L (24-28) mmol/L Sodium (137-145) mmol/L Potassium (3.5-5.1) mmol/L Chloride (98-107) mmol/L Carbon Dioxide (22-30) mmol/L Anion Gap mmol/L BUN (7-17) mg/dL Creatinine (0.52-1.04) mg/dL Est GFR (CKD-EPI)AfAm (>60 ml/min/1.73 sqM) Est GFR (CKD-EPI)NonAf (>60 ml/min/1.73 sqM) Glucose (74-99) mg/dL POC Glucose (mg/dL) (75-99) mg/dL POC Glu Photographic Plate Maker ID Plasma Lactic Acid Jorge (0.7-2.0) mmol/L Calcium (8.4-10.2) mg/dL Total Bilirubin (0.2-1.3) mg/dL AST (14-36) U/L ALT (4-34) U/L Alkaline Phosphatase (38-126) U/L Creatine Kinase (30-135) U/L Total Protein (6.3-8.2) g/dL Albumin (3.5-5.0) g/dL Urine Color Urine Appearance (Clear) Urine pH (5.0-8.0) Ur Specific [place] (1.001-1.035) Urine Protein (Negative) Urine Glucose (UA) (Negative) Urine Ketones (Negative) Urine Blood (Negative) Urine Nitrite (Negative) Urine Bilirubin (Negative) Urine Urobilinogen (<2.0) mg/dL Ur Leukocyte Esterase (Negative) Salicylates mg/dL Urine Opiates Screen (NotDetected) Ur Oxycodone Screen (NotDetected) Urine Methadone Screen (NotDetected) Ur Propoxyphene Screen (NotDetected) Acetaminophen ug/mL Ur Barbiturates Screen (NotDetected) U Tricyclic Antidepress (NotDetected) Ur Phencyclidine Scrn (NotDetected) Ur Amphetamines Screen (NotDetected) U Methamphetamines Scrn (NotDetected) U Benzodiazepines Scrn (NotDetected) [place] mmol/L Urine Cocaine Screen (NotDetected) U Marijuana (THC) Screen (NotDetected) Serum Alcohol mg/dL Disposition Clinical Impression: Drug overdose Disposition: ADMITTED IP TO THIS [facility] Condition: Stable Is patient prescribed a controlled substance at d/c from ED?: No Referrals: Angel Ansari MD [Primary Care Provider] - 1-2 days Decision to Admit Reason: Admit from EC Decision Date: 03/12/21 Decision Time: 17:17
[2021-03-12 16:04] LABS: ALT 17 U/L (4-34); AST 24 U/L (14-36); Acetaminophen <10.0 ug/mL; African American GFR (CKD) 52 (>60 ml/min/1.73 sqM); Albumin 3.6 g/dL (3.5-5.0); Alcohol <10 mg/dL; Alkaline Phosphatase 127 U/L (38-126); Anion Gap 8 mmol/L; Blood Urea Nitrogen 18 mg/dL (7-17); Calcium 9.7 mg/dL (8.4-10.2); Carbon Dioxide 17 mmol/L (22-30); Chloride 115 mmol/L (98-107); Creatine Kinase 70 U/L (30-135); Glucose 105 mg/dL (74-99); Lithium <0.2 mmol/L; Non-African American GFR(CKD) 45 (>60 ml/min/1.73 sqM); Potassium 3.2 mmol/L (3.5-5.1); Salicylate <1.0 mg/dL; Sodium 140 mmol/L (137-145); Total Bilirubin 0.4 mg/dL (0.2-1.3); Total Protein 5.9 g/dL (6.3-8.2)
--- NOTE | 2021-03-12 16:05 | XR ---
EXAMINATION TYPE: XR chest 1V portable DATE OF EXAM: 03/12/2021 Comparison: 02/21/2021 Clinical History: 61-year-old female overdose Findings: Leftward patient rotation alters the normal cardiomediastinal contours. Heart borderline enlarged. Di ffuse interstitial density. No nathan consolidation or pleural effusion. Impression: Borderline cardiomegaly. Rotated exam. Interstitial changes are noted. Given the patient's overdose, close follow-up recommended to exclude early developing noncardiogenic pulmonary edema.
[2021-03-12 16:12] LABS: Appearance,Urine Clear (Clear); Bilirubin,Urine Negative (Negative); Blood,Urine Negative (Negative); Color,Urine Yellow; Glucose,Urine (UA) Negative (Negative); Ketones,Urine Negative (Negative); Leukocyte Esterase,Urine Negative (Negative); Nitrite,Urine Negative (Negative); Protein,Urine Trace (Negative); Specific Gravity,Urine 1.013 (1.001-1.035); Urobilinogen,Urine <2.0 mg/dL (<2.0)
[2021-03-12 16:21] LABS: Prothrombin Time 10.5 sec (9.0-12.0)
--- NOTE | 2021-03-12 16:27 | CT ---
EXAMINATION TYPE: CT brain matiasine wo con DATE OF EXAM: 03/12/2021 COMPARISON: Brain 02/21/2021 HISTORY: 61 year-old female confusion, altered mental status, fall and pain CT DLP: 1310.3 mGycm Automated exposure control for dose reduction was used. Technique: Examination of the head was done in axial plane without intravenous contrast. Coronal and sagittal reconstructions performed. CT of the cervical spine was obtained in axial plane without intravenous injection of contrast mater ial. Coronal and sagittal reformatted images were obtained from the axial views for evaluation of f ractures, spinal alignment and canal. FINDINGS: Head: There is no evidence of acute intracranial hemorrhage, acute ischemic changes, mass, mass-effect, or extra-axial fluid collection. There is no effacement of cerebral sulci or basal subarachnoid cister ns. There is no hydrocephalus. There is no midline shift. Boone-white matter distinction is preserv ed. Stable mild age-related cerebral cortical volume loss. Paranasal sinuses and mastoid air cells are pneumatized. Visualized orbits and globes are intact. Cervical spine: The patient's head is oblique towards the right. No craniocervical junction anomaly, predental space widening, or prevertebral soft tissue swelling. Alignment is maintained. No acute fracture of the cervical spine. Mild degenerative disc disease C6-C7. No evident canal compr omise. Mild facet arthropathy lower cervical spine. Some partially visualized groundglass changes The alignment of the cervical spine is normal on carranza l and reformatted images. There is no cranial vertebral abnormality. Fracture of the cervical spine i s not seen. . There is no evidence of focal disk herniation. There is no central spinal canal stenosi s. Sagittal and coronal reformatted images confirm above findings. COMBINED IMPRESSION: 1. No acute intracranial abnormality seen. 2. No acute fracture or malalignment of the cervical spine. 3. Partially visualized groundglass densities in the visualized upper lungs. Correlate for underlying pneumonitis or early pulmonary edema.
[2021-03-12 16:32] LABS: Amphetamine Screen,Urine Not Detected (NotDetected); Barbiturate Screen,Urine Not Detected (NotDetected); Benzodiazepines Screen,Urine Not Detected (NotDetected); Cocaine Screen,Urine Not Detected (NotDetected); Methadone Screen, Urine Not Detected (NotDetected); Opiate Screen,Urine Not Detected (NotDetected); Oxycodone Screen, Urine Not Detected (NotDetected); Phencyclidine Screen,Urine Not Detected (NotDetected); Tricyclic Antidepressant,Urine Not Detected (NotDetected); Urn Cannabinoid Scrn Not Detected (NotDetected)
[2021-03-12] MEDS ORDERED: NALOXONE 0.4 MG/ML 1 ML VIAL IV PRN (17:14)
[2021-03-12] MEDS: SODIUM CHLORIDE 0.9% 1,000 ML IV SCH (17:46)
[2021-03-12] MEDS: POTASSIUM CHLORIDE 10 MEQ in WATER FOR INJECTION 1 100ML.BAG IVPB SCH ×4 (17:46→21:35)
[2021-03-13] MEDS ORDERED: Potassium Replacement Protocol 1 EACH MISC MISCELLANE PRN (11:26)
--- NOTE | 2021-03-13 11:44 | XR ---
EXAMINATION TYPE: XR chest 1V DATE OF EXAM: 03/13/2021 COMPARISON: 03/12/2021 INDICATION: Change TECHNIQUE: Single frontal view of the chest is obtained. FINDINGS: The heart size is normal. The pulmonary vasculature is normal. The lungs are clear. IMPRESSION: 1. No acute pulmonary process.
[2021-03-13 11:47] LABS: ABG Base Excess -8.8 mmol/L; ABG HCO3 17 mmol/L (21-25); ABG Oxygen Saturation 97.1 % (94-97); ABG PCO2 31 mmHg (35-45); ABG PH 7.34 (7.35-7.45); ABG PO2 89 mmHg (83-108); ABG TCO2 18 mmol/L (19-24); Allen Test Performed? Yes
[2021-03-13 11:51] LABS: Basophils % (A) 0 %; Eosinophils % (A) 1 %; HCT 35.8 % (34.0-46.0); HGB 12.1 gm/dL (11.4-16.0); Lymphocytes # (A) 1.1 k/uL (1.0-4.8); Lymphocytes % (A) 16 %; MCH 30.5 pg (25.0-35.0); MCHC 33.7 g/dL (31.0-37.0); MCV 90.6 fL (80.0-100.0); Mean Platelet Volume 6.7; Monocytes # (A) 0.3 k/uL (0-1.0); Monocytes % (A) 5 %; Neutrophils % (A) 77 %; Platelet Count 233 k/uL (150-450); RBC 3.96 m/uL (3.80-5.40); WBC 6.5 k/uL (3.8-10.6)
[2021-03-13 12:07] LABS: Calcium 9.2 mg/dL (8.4-10.2); Magnesium 1.8 mg/dL (1.6-2.3); Potassium 3.8 mmol/L (3.5-5.1); Total Bilirubin 0.2 mg/dL (0.2-1.3); Total Protein 5.4 g/dL (6.3-8.2)
[2021-03-13] MEDS: SODIUM CHLORIDE 0.9% 1,000 ML IV SCH ×3 (12:50→19:49)
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
[2021-03-13] MEDS ORDERED: hydrOXYzine pamoate 25 MG CAP PO PRN (15:23)
[2021-03-13] MEDS ORDERED: QUEtiapine 50 MG TAB PO PRN (15:24)
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
--- NOTE | 2021-03-13 15:48 | P.CNNES ---
History of Present Illness Consult date: 03/13/21 Requesting physician: Karli Cameron Reason for Consult: loss of consciousness History of Present Illness: This is a 61-year-old woman with medical history of hypothyroidism, COPD, bipolar, tobacco use who presented to the emergency department on the 03/12/2021 for decreased level of consciousness as well as fall. Per the patient's as she got into an argument with her and as a result she stated that the she o verdosed on Klonopin. She was in tears when I was getting the history from her. As a result she was admitted to the hospital. At today and on the floors the patient the per the nurse was the was extremely confused and she seemed obtunded and had to be sternal rubbed. Per the nurse there is no jerking of any extremities, no rolling of the eye backward. When she opened her eyes the eyes were midline bilaterally. No foaming around the mouth. That she didn't have any urinary or bowel incontinence. Literature patient nurse her mentation has improved today compared to earlier Patient home medication includes B postdural and 50 mg 1 tablet twice a day, gabapentin 600 mg 1 tablet 3 times a day when necessary, Lamictal 25 mg 1 tablet twice a day, Lamictal 100 mg 1 tablet twice a day, Klonopin 1 mg 4 times a day when necessary, clonidine 0.2 milligram 1 tablet 3 times a day, Synthroid, Vis taril. Some other workup in the hospital consisted of: Initial vital signs his blood pressure of 91/60, heart rate of 58, respiratory of 8, temperature of 97.8 and pulse ox of 96 on 2 L of nasal cannula. During the hospital stay her temperature was as low as 94.[address] of the head is reported no acute intracranial abnormality seen. CT of the cervical spine is reported as no acute fracture or malalignment of the cervical spine. Partially visualized groundglass densities in the visualized upper long. Correlate for underlying pneumonitis or early pulmonary edema Her CBC with differential are unremarkable. With a white blood cell of 9.4 thousand which is considered normal left. Her initial POC glucose is 121 which is unremarkable. The sodium is 140, calcium is 9.7, magnesium is 1.8 and those are unremarkable. Potassium on presentation is 3.2 which is mildly low but the repeat is 0.8 the which is normal. Initial creatinine is 1.29 slightly elevated in the repeat is 1.02 AST of 24 ALT of 17 which is considered normal. Urine drug screen is nondetected. Acetaminophen is than 10.0, Salicyclates less than 1.0, lithium is less than 0.2, alcohol is less than 10. Review of Systems Review of system: The 12 point system was reviewed and apparent positive and negative per HPI. Past Medical History Past Medical History: COPD, Thyroid Disorder Additional Past Medical History / Comment(s): cysts on (R) kidney. History of Any Multi-Drug Resistant Organisms: None Reported Past Surgical History: Cholecystectomy, Hysterectomy Additional Past Surgical History / Comment(s): parathyroidectomy Past Anesthesia/Blood Transfusion Reactions: No Reported Reaction Past Psychological History: Bipolar Additional Psychological History / Comment(s): Pt resides with her spouse. She has a L ankle sprain and has been using an ankle brace and cane lately. She is independent. Smoking Status: Current every day smoker Past Alcohol Use History: None Reported Additional Past Alcohol Use History / Comment(s): Pt started smoking in 1976 and is a ppd smoker. Past Drug Use History: Opiates, Prescription Drug Abuse Additional Drug Use History / Comment(s): Pt denies. - Past Family History Father Family Medical History: Coronary Artery Disease (CAD) Additional Family Medical History / Comment(s): Father is of blood cancer. Mother Family Medical History: Coronary Artery Disease (CAD) Additional Family Medical History / Comment(s): Mother is living Medications and Allergies Home Medications Medication Instructions Recorded Confirmed Type Levothyroxine Sodium [Synthroid] 50 mcg PO DAILY 12/26/18 03/12/21 History Pantoprazole Sodium [Protonix] 40 mg PO BID 05/02/19 03/12/21 History lamoTRIgine [LaMICtal] 100 mg PO BID 05/02/19 03/12/21 History Sucralfate [Carafate] 1 gm PO ACHS 02/04/21 03/12/21 History lamoTRIgine [LaMICtal] 25 mg PO BID 02/04/21 03/12/21 History Gabapentin 600 mg PO TID PRN 03/12/21 03/12/21 History Venlafaxine HCl [Effexor XR] 300 mg PO DAILY 03/12/21 03/12/21 History busPIRone HCL 15 mg PO BID 03/12/21 03/12/21 History cloNIDine HCL 0.2 mg PO TID 03/12/21 03/12/21 History clonazePAM [KlonoPIN] 1 mg PO QID PRN 03/12/21 03/12/21 History hydrOXYzine pamoate [Vistaril] 100 mg PO HS 03/12/21 03/12/21 History Allergies Allergy/AdvReac Type Severity Reaction Status Date / Time No Known Allergies Allergy Verified 03/12/21 15:35 Physical Examination - Vital Signs Vital Signs: Vital Signs Temp Pulse Pulse Resp BP BP Pulse Ox 03/13/21 14:00 84 03/13/21 12:45 97.8 F 82 18 106/53 98 03/13/21 11:44 96.1 F L 03/13/21 11:41 63 110/59 03/13/21 11:37 101/60 03/13/21 11:15 95.1 F L 62 113/59 03/13/21 10:45 94.6 F L 49 L 18 117/64 98 03/13/21 09:58 95.1 F L 03/13/21 08:00 49 L 18 130/85 100 03/13/21 04:00 60 18 132/78 95 03/13/21 02:00 58 L 20 03/13/21 00:00 58 L 20 136/80 03/12/21 20:19 97.5 F L 62 16 94/70 99 03/12/21 20:00 52 L 20 03/12/21 18:30 63 16 108/67 99 03/12/21 17:46 54 L 14 98/56 100 03/12/21 17:35 58 L 16 93/63 98 03/12/21 17:32 97.6 F 52 L 18 142/86 96 03/12/21 16:15 57 L 6 L 91/56 97 03/12/21 16:00 58 L 8 L 95/57 97 03/12/21 15:42 8 L 03/12/21 15:38 97.8 F 58 L 8 L 97/57 96 03/12/21 15:36 58 L 8 L 91/60 96 Intake and Output 03/13/21 03/13/21 03/13/21 06:59 14:59 22:59 Intake Total 350 280 Output Total 1600 Balance -1250 280 Intake: Intake, IV Titration 350 Amount Potassium Chloride 10 meq 200 In Water For Injection 1 100ml.bag @ 100 mls/hr IVPB Q1HR [facility] Rx#: [id number] Sodium Chloride 0.9% 1, 150 000 ml @ 75 mls/hr IV . [id number] [facility] Rx#:[id number] Oral 280 Output: Urine 1600 Other: Voiding Method Indwelling Catheter Indwelling Catheter Weight 74.5 kg GENERAL: The patient is lying in bed and is not in acute distress. CHEST: The heart rate is regular rate rhythm. No murmurs to auscultation. LUNG: Clear to auscultation bilaterally no wheezing noted throughout. Not labored breathing. ABDOMEN/GI: Bowel sounds present in all 4 quadrants. No tenderness to palpation throughout. NEUROLOGICAL: Higher mental function: The patient is drowsy but is awakeable to voice, oriented to self, place and time. She stated the state she is in is [place]. With options she correctly picked the right [place] president. She correctly named objects shown to her (pen, watch and glasses). Patient is following commands. No aphasia and no neglect. Cranial nerves: The pupils are round, equal and reactive to light and acco mmodation. Visual [place] are full to confrontation throughout. Extraocular movement is intact no nystagmus is noted. Facial sensation is normal to touch throughout. The facial strength is normal throughout. Hearing is normal bilaterally to hand rub. Tongue is midline and moved [id number] without any difficulty. No dysarthria is noted. Shoulder shrug is normal bilaterally. Motor: Gait is deferred. The strength is limited because of cooperation but had at least 4+ throughout. Normal tone and bulk. Cerebellum: Normal finger to nose heel to chin bilaterally. Sensation: Sensation is normal to touch throughout. Reflexes (right/left): 2+ throughout. Plantars are downgoing bilaterally. Results Jacobs virus PCR is nondetected. Urinalysis is negative for urinary tract infection. Patient creatinine kinase is 70 which is considered normal. AST of 24 and ALT of 17 which is HER normal. Her ABG today is pH of 7.34, pO2 to his low which is a 31, pO2 is 89, bicarb of 17, CO2 of 18. - Laboratory Findings CBC and BMP: 03/13/21 11:33 03/13/21 11:33 Abnormal Lab Findings: Abnormal Labs 03/12/21 03/12/21 03/12/21 15:38 15:40 15:40 ABG pH ABG pCO2 ABG HCO3 ABG Total CO2 ABG O2 Saturation VBG pCO2 VBG HCO3 Potassium 3.2 L Chloride 115 H Carbon Dioxide 17 L BUN 18 H Creatinine 1.29 H Glucose 105 H POC Glucose (mg/dL) 121 H Plasma Lactic Acid Jorge Alkaline Phosphatase 127 H Total Protein 5.9 L Albumin Urine Protein Trace H 03/12/21 03/13/21 03/13/21 15:40 11:33 11:33 ABG pH ABG pCO2 ABG HCO3 ABG Total CO2 ABG O2 Saturation VBG pCO2 32 L VBG HCO3 17 L Potassium Chloride 120 H Carbon Dioxide 16 L BUN Creatinine Glucose POC Glucose (mg/dL) Plasma Lactic Acid Jorge 0.6 L Alkaline Phosphatase Total Protein 5.4 L Albumin 3.0 L Urine Protein 03/13/21 11:42 ABG pH 7.34 L ABG pCO2 31 L ABG HCO3 17 L ABG Total CO2 18 L ABG O2 Saturation 97.1 H VBG pCO2 VBG HCO3 Potassium Chloride Carbon Dioxide BUN Creatinine Glucose POC Glucose (mg/dL) Plasma Lactic Acid Jorge Alkaline Phosphatase Total Protein Albumin Urine Protein Assessment and Plan Assessment: Altered mental status due to toxic encephalopathy (she stated she overdosed on Klonipin but her UDS is negative for benzo). And some component of metabolic encephalopathy. Hypothermia as well as bradypnea--improving Acute kidney insufficiency--resolved Drug overdose Hypothyroidism COPD History of bipolar Per medical record the patient had prior history of opiate and prescription drug abuse Nicotine dependence Plan: CT of the head is reported no acute intracranial abnormality seen. CT of the cervical spine is reported as no acute fracture or malalignment of the cervical spine. Partially visualized groundglass densities in the visualized upper long. Correlate for underlying pneumonitis or early pulmonary edema I ordered an urgent EEG. I'll not start the patient on an antiepileptic drug unless there is epileptiform discharges or seizure on the EEG. I ordered TSH, vitamin B12 and folate level. Psychiatry team is consulted. Will defer the rest of medical management to the primary team. The plan is discussed with the patient's nurse. Thank you for the consultation. Magan Steve MD Neuro-Hospitalist Time with Patient: Greater than 30
--- NOTE | 2021-03-13 18:06 | EEG ---
ELECTROENCEPHALOGRAM REPORT DATE OF SERVICE: 03/13/2021 CLINICAL HISTORY: This is a 61-year-old woman with altered mental status. This video EEG is obtained to evaluate procedure epileptiform activity. RELEVANT MEDICATION: The patient is on Lamictal and Klonopin. EEG TYPE: A routine 21 channel EEG was performed with figure using the 10/20 electrode placed system. DESCRIPTION OF PROCEDURE: Wakefulness is only obtained. During wakefulness, there is a posterior dominant rhythm of low to moderate voltage, reactive, well modulated, of 11-11.5 hertz. There is no physiological sleep architecture seen. There is no focal slowing seen. Interictal and ictal is none. ACTIVATION PROCEDURE: Photic stimulation did not evoke a positive driving response. Hyperventilation is not performed. CLINICAL INTERPRETATION: This is a normal routine EEG. There are no focal slowing, epileptiform discharges or seizure on the EEG. Clinical correlation is recommended. BALDEMAR / JAYDEN: [id number] / MTDD
[2021-03-13] MEDS: HALOPERIDOL LACTATE 5 MG/ML 1 ML VIAL IM PRN ×2 (18:45→23:42)
[2021-03-13] MEDS: lamoTRIgine 25 MG TAB PO SCH (19:39)
[2021-03-13] MEDS: busPIRone HCl 5 MG TAB PO SCH (19:39)
[2021-03-14] MEDS ORDERED: LORazepam 2 MG/ML INJ IM STA (01:17)
[2021-03-14 04:28] LABS: Folate, Serum >24.0 ng/mL
[2021-03-14] MEDS: SODIUM CHLORIDE 0.9% 1,000 ML IV SCH ×3 (05:10→18:15)
[2021-03-14] MEDS: VENLAFAXINE HCL ER 37.5 MG CAP PO SCH (09:35)
[2021-03-14] MEDS: busPIRone HCl 5 MG TAB PO SCH ×2 (09:35→20:20)
[2021-03-14] MEDS: lamoTRIgine 25 MG TAB PO SCH ×2 (09:35→20:20)
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
[2021-03-14 11:14] LABS: Basophils % (A) 0 %; Eosinophils % (A) 0 %; HCT 36.4 % (34.0-46.0); HGB 12.4 gm/dL (11.4-16.0); Lymphocytes % (A) 14 %; MCH 30.9 pg (25.0-35.0); MCHC 34.1 g/dL (31.0-37.0); MCV 90.6 fL (80.0-100.0); Monocytes # (A) 0.3 k/uL (0-1.0); Monocytes % (A) 4 %; Neutrophils # (A) 5.7 k/uL (1.3-7.7); Neutrophils % (A) 81 %; Platelet Count 235 k/uL (150-450); RBC 4.02 m/uL (3.80-5.40); RDW 13.2 % (11.5-15.5); WBC 7.1 k/uL (3.8-10.6)
[2021-03-14 11:33] LABS: Potassium 3.9 mmol/L (3.5-5.1)
[2021-03-14 11:34] LABS: Calcium 9.4 mg/dL (8.4-10.2)
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
--- NOTE | 2021-03-14 14:40 | P.PN ---
Subjective Progress Note Date: 03/14/21 She was seen at bedside and the per the patient nurse, no seizure-like activity. Her condition is about the same today as compared to yesterday. Objective - Vital Signs Vital signs: Vital Signs Temp 97.8 F 03/14/21 12:40 Pulse 93 03/14/21 12:40 Resp 20 03/14/21 12:40 BP 138/81 03/14/21 12:40 Pulse Ox 98 03/14/21 12:40 Intake & Output 03/13/21 03/14/21 03/14/21 18:59 06:59 18:59 Intake Total 560 Output Total 950 350 600 Balance -390 -350 -600 Weight 76 kg Intake: Oral 560 Output: Urine 950 350 600 Other: Voiding Method Indwelling Catheter Indwelling Catheter Indwelling Catheter - Exam GENERAL: The patient is lying in bed and is not in acute distress. NEUROLOGICAL: Higher mental function: The patient is awake, oriented to self, place and time. She correctly named objects shown to her (pen, watch and glasses). Patient is following commands. No aphasia and no neglect. Cranial nerves: The pupils are round, equal and reactive to light and accommodation. Visual [place] are full to confrontation throughout. Extraocular movement is intact no nystagmus is noted. Facial sensation is normal to touch throughout. The facial strength is normal throughout. Hearing is normal bilaterally to hand rub. Tongue is midline and moved [id number] without any difficulty. No dysarthria is noted. Shoulder shrug is normal bilaterally. Motor: Gait is deferred. The strength is limited because of cooperation but had at least 4+ throughout. Normal tone and bulk. Cerebellum: Normal finger to nose heel to chin bilaterally. Sensation: Sensation is normal to touch throughout. Reflexes (right/left): 2+ throughout. Plantars are downgoing bilaterally. - Labs CBC & Chem 7: 03/14/21 10:53 03/14/21 10:53 Labs: Abnormal Lab Results - Last 24 Hours (Table) 03/14/21 Range/Units 10:53 Chloride 119 H (98-107) mmol/L Carbon Dioxide 20 L (22-30) mmol/L Creatinine 1.14 H (0.52-1.04) mg/dL Glucose 108 H (74-99) mg/dL Microbiology - Last 24 Hours (Table) 03/13/21 11:33 Blood Culture - Preliminary Blood No Growth after 24 hours Assessment and Plan Assessment: Altered mental status due to toxic encephalopathy (she stated she overdosed on Klonipin but her UDS is negative for benzo). And some component of metabolic encephalopathy. Hypothermia as well as bradypnea--improving Acute kidney insufficiency--resolved Drug overdose Hypothyroidism COPD History of bipolar Per medical record the patient had prior history of opiate and prescription drug abuse Nicotine dependence Plan: CT of the head is reported no acute intracranial abnormality seen. CT of the cervical spine is reported as no acute fracture or malalignment of the cervical spine. Partially visualized groundglass densities in the visualized upper long. Correlate for underlying pneumonitis or early pulmonary edema. EEG on 03/13/2021 is normal. There are no focal slowing, epileptiform discharges or seizure on the EEG. TSH is 0.870 and the serum folate is more than 24 which both are normal. Pending vitamin B12 level. Psychiatry team is on board. Will defer the rest of medical management to the primary team. There is no further neurological work-up. The plan is discussed with the patient's nurse. I attempted to contact the arpan galvan ([place]) via phone but no response. Magan Steve MD Neuro-Hospitalist Time with Patient: Less than 30
[2021-03-15] MEDS: SODIUM CHLORIDE 0.9% 1,000 ML IV SCH ×3 (05:45→22:53)
[2021-03-15] MEDS: VENLAFAXINE HCL ER 37.5 MG CAP PO SCH (09:02)
[2021-03-15] MEDS: lamoTRIgine 25 MG TAB PO SCH ×2 (09:02→20:19)
[2021-03-15] MEDS: busPIRone HCl 5 MG TAB PO SCH ×2 (09:02→20:19)
[2021-03-15 10:19] LABS: Basophils % (A) 0 %; Eosinophils % (A) 0 %; HCT 36.6 % (34.0-46.0); HGB 12.9 gm/dL (11.4-16.0); Lymphocytes # (A) 1.1 k/uL (1.0-4.8); Lymphocytes % (A) 12 %; MCH 31.2 pg (25.0-35.0); MCHC 35.1 g/dL (31.0-37.0); MCV 88.7 fL (80.0-100.0); Mean Platelet Volume 6.5; Monocytes # (A) 0.4 k/uL (0-1.0); Monocytes % (A) 5 %; Neutrophils # (A) 7.5 k/uL (1.3-7.7); Neutrophils % (A) 82 %; Platelet Count 259 k/uL (150-450); RBC 4.13 m/uL (3.80-5.40); RDW 12.6 % (11.5-15.5); WBC 9.1 k/uL (3.8-10.6)
[2021-03-15 10:39] LABS: Calcium 9.3 mg/dL (8.4-10.2); Potassium 3.6 mmol/L (3.5-5.1)
[2021-03-16 00:07] VITALS: BP 137/75; PULSE 85; RESP 17; TEMP 98.3
== END 2021-03-16 00:10 | DRG 917 ==
LOC: EC 15:33 → 3SCARD 17:14
PROVIDERS: ADMIT Family Medicine; ATTEND Family Medicine
DX: T50.911A Poisoning by multiple unspecified drugs, medicaments and biological substances, accidental (unintentional), initial encounter (principal); G92 Toxic encephalopathy; N17.9 Acute kidney failure, unspecified; E87.2 Acidosis; F31.60 Bipolar disorder, current episode mixed, unspecified; I95.9 Hypotension, unspecified; J44.9 Chronic obstructive pulmonary disease, unspecified; N18.30 Chronic kidney disease, stage 3 unspecified; E89.2 Postprocedural hypoparathyroidism; Z20.822 Contact with and (suspected) exposure to COVID-19; E87.6 Hypokalemia; I12.9 Hypertensive chronic kidney disease with stage 1 through stage 4 chronic kidney disease, or unspecified chronic kidney disease; K21.9 Gastro-esophageal reflux disease without esophagitis; E03.9 Hypothyroidism, unspecified; S93.402D Sprain of unspecified ligament of left ankle, subsequent encounter; R68.0 Hypothermia, not associated with low environmental temperature; R00.1 Bradycardia, unspecified; M54.9 Dorsalgia, unspecified; G89.29 Other chronic pain; M79.604 Pain in right leg; M79.605 Pain in left leg; E66.9 Obesity, unspecified; Z68.27 Body mass index [BMI] 27.0-27.9, adult; F17.210 Nicotine dependence, cigarettes, uncomplicated; Z78.1 Physical restraint status; Z79.890 Hormone replacement therapy; Z79.899 Other long term (current) drug therapy; Z90.49 Acquired absence of other specified parts of digestive tract; Z90.710 Acquired absence of both cervix and uterus; Z87.19 Personal history of other diseases of the digestive system; Z87.42 Personal history of other diseases of the female genital tract; Z56.0 Unemployment, unspecified; Z98.890 Other specified postprocedural states; Z82.49 Family history of ischemic heart disease and other diseases of the circulatory system; Z80.7 Family history of other malignant neoplasms of lymphoid, hematopoietic and related tissues; Y92.009 Unspecified place in unspecified non-institutional (private) residence as the place of occurrence of the external cause
CPT/HCPCS: 36415; 36600; 70450; 71045; 72125; 80048; 80053; 80143; 80178; 80179; 80306; 80320; 81003; 82550; 82607; 82746; 82803; 82805; 83605; 83735; 84145; 84443; 85025; 85610; 87040; 87635; 93005; 94760; 95816; 96361; 96374; 99285

== ENCOUNTER 2021-03-16 00:12 | Inpatient (IN) | payer MEDICARE ==
[2021-03-16] MEDS ORDERED: MAGNESIUM HYDROXIDE 2,400 MG/10 ML CUP PO PRN (01:04)
[2021-03-16] MEDS ORDERED: MAG HYDROX/AL HYDROX/SIMETH 30 ML CUP PO PRN (01:04)
[2021-03-16] MEDS ORDERED: hydrOXYzine pamoate 25 MG CAP PO PRN (01:09)
[2021-03-16] MEDS ORDERED: QUEtiapine 50 MG TAB PO PRN (01:09)
[2021-03-16] MEDS: LEVOTHYROXINE 50 MCG TAB PO SCH (06:46)
[2021-03-16] MEDS: NICOTINE 14MG/24HR PATCH TRANSDERM SCH (08:15)
[2021-03-16] MEDS: lamoTRIgine 25 MG TAB PO SCH ×2 (08:15→22:04)
[2021-03-16] MEDS: VENLAFAXINE HCL ER 37.5 MG CAP PO SCH (08:15)
[2021-03-16] MEDS: PANTOPRAZOLE 40 MG TABLET PO SCH ×2 (08:15→17:32)
[2021-03-16] MEDS: SUCRALFATE 1 GM TAB PO SCH ×4 (08:15→22:04)
[2021-03-16] MEDS ORDERED: busPIRone HCl 5 MG TAB PO SCH (09:00)
--- NOTE | 2021-03-16 11:45 | P.CONS ---
History of Present Illness - Reason for Consult Consult date: 03/16/21 Medical management of COPD, hypothyroidism, GERD and and CKD3 - History of Present Illness Josefa a 7-year-old white female the practice. She has a history of chronic kidney disease stage III, COPD, hypothyroidism, nicotine dependence, bipolar disorder, and hypothyroidism. On 03/12/2021, she was experiencing emotional distress related to her bipolar disorder. She was very distraught and took a large amount of her Abilify and Lamictal. He initially reported she overdosed on Klonopin, but there is no Klonopin found in her system. An presentation in the emergency room she was found to be somnolent. Labs were essentially normal except for her significant somnolence and unresponsiveness. The following day she became hypothermic and bradycardic. An 18 was called us felt she was stable enough to see him before. She was warmed with IV fluids. Later on that night she came aggressive requiring 4-point restraints and Haldol along with out Ativan. She slowly improved. Neurology and psychiatry it seen her. She had some gait dysfunction which improved enough with a walker for her to be sent here to the psychiatric floor. 03/16/2021: Patient physically feels much better. She still very emotionally distraught. Her was just discharged from this institution for alcohol withdrawal, is in the emergency room now with repeat symptoms. She is complaining of some shortness of breath and needing her inhalers. She denies any chest pains pressures, nausea or vomiting, diarrhea or constipation. She appears almost to her baseline except for the gait dysfunction. Review of Systems All systems: negative Past Medical History Past Medical History: COPD, Renal Disease, Thyroid Disorder Additional Past Medical History / Comment(s): cysts on (R) kidney. History of Any Multi-Drug Resistant Organisms: None Reported Past Surgical History: Cholecystectomy, Hysterectomy Additional Past Surgical History / Comment(s): parathyroidectomy Past Anesthesia/Blood Transfusion Reactions: No Reported Reaction Past Psychological History: Bipolar Additional Psychological History / Comment(s): Pt resides with her spouse. She has a L ankle sprain and has been using an ankle brace and cane lately. She is independent. Smoking Status: Never smoker Past Alcohol Use History: None Reported Additional Past Alcohol Use History / Comment(s): Pt started smoking in 1976 and is a ppd smoker. Past Drug Use History: Opiates, Prescription Drug Abuse Additional Drug Use History / Comment(s): Pt denies. - Past Family History Father Family Medical History: Coronary Artery Disease (CAD) Additional Family Medical History / Comment(s): Father is of blood cancer. Mother Family Medical History: Coronary Artery Disease (CAD) Additional Family Medical History / Comment(s): Mother is living Medications and Allergies Home Medications Medication Instructions Recorded Confirmed Type Levothyroxine Sodium [Synthroid] 50 mcg PO DAILY 12/26/18 03/12/21 History Pantoprazole Sodium [Protonix] 40 mg PO BID 05/02/19 03/12/21 History Sucralfate [Carafate] 1 gm PO ACHS 02/04/21 03/12/21 History busPIRone HCL 15 mg PO BID 03/12/21 03/12/21 History QUEtiapine [SEROquel] 50 mg PO HS PRN tab 03/14/21 Rx Venlafaxine HCl ER [Effexor XR] 37.5 mg PO DAILY cap.er.24h 03/14/21 Rx busPIRone HCl [Buspar] 15 mg PO BID tab 03/14/21 Rx hydrOXYzine pamoate [Vistaril] 25 mg PO Q6HR PRN cap 03/14/21 Rx lamoTRIgine [LaMICtal] 25 mg PO BID tab 03/14/21 Rx Allergies Allergy/AdvReac Type Severity Reaction Status Date / Time No Known Allergies Allergy Verified 03/12/21 15:35 Physical Exam Vitals: Vital Signs Temp Pulse Resp BP Pulse Ox 03/16/21 08:00 96.6 F L 132 H 20 106/60 03/16/21 00:44 98.6 F 90 18 122/87 98 Intake and Output 03/15/21 03/16/21 03/16/21 22:59 06:59 14:59 Other: Weight 73.3 kg GENERAL: Fatigue, well-nourished and in no acute distress. She is ambulating well with a walker. HEAD: Atraumatic, normocephalic. EYES: Pupils equal round and reactive to light, extraocular movements intact, sclera anicteric, conjunctiva are normal. ENT:nares patent, oropharynx clear without exudates. Moist mucous membranes. NECK: Normal range of motion, supple without lymphadenopathy or JVD, no thyromegaly LUNGS: Breath sounds coarse to auscultation bilaterally and equal. No wheezes rales or rhonchi. HEART: Regular rate and rhythm without murmurs, rubs or gallops.S1S2 Normal ABDOMEN: Soft, nontender, normoactive bowel sounds. No guarding, no rebound. No masses appreciated. EXTREMITIES: Normal range of motion, no pitting or edema. No clubbing or cyanosis. NEUROLOGICAL: Cranial nerves II through XII grossly intact. Normal speech, normal gait. PSYCH: Normal mood, normal affect. SKIN: Warm, Dry, normal turgor, no rashes or lesions noted. Assessment and Plan (1) COPD (chronic obstructive pulmonary disease) Current Visit: Yes Status: Acute Code(s): J44.9 - CHRONIC OBSTRUCTIVE PULMONARY DISEASE, UNSPECIFIED SNOMED Code(s): 45084260 (2) H/O drug abuse Current Visit: Yes Status: Acute Code(s): F19.11 - OTHER PSYCHOACTIVE SUBSTANCE ABUSE, IN REMISSION SNOMED Code(s): 608206371 (3) Bipolar 1 disorder Current Visit: No Status: Chronic Code(s): F31.9 - BIPOLAR DISORDER, UNSPECIFIED SNOMED Code(s): 212546425 (4) Chronic GERD Current Visit: No Status: Chronic Code(s): K21.9 - GASTRO-ESOPHAGEAL REFLUX DISEASE WITHOUT ESOPHAGITIS SNOMED Code(s): 031377417 (5) Hypothyroidism Current Visit: No Status: Chronic Code(s): E03.9 - HYPOTHYROIDISM, UNSPECIFIED SNOMED Code(s): 17831139 Plan: I will restart her home inhalers. She'll continue on her pantoprazole, levothyroxine, hold sucralfate at this time, psychiatry to address her other medications. She'll continue Avalide with a walker this time. She appears much improved. We'll follow her with you as needed.
[2021-03-16] MEDS ORDERED: traZODone HCL 50 MG TAB PO PRN (15:55)
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
[2021-03-16] MEDS: LURASIDONE 40 MG TAB PO SCH (16:42)
[2021-03-16] MEDS: busPIRone HCl 10 MG TAB PO SCH (21:58)
[2021-03-16] MEDS: SYMBICORT 160-4.5 MCG INHALER INHALATION SCH (22:49)
[2021-03-17] MEDS: LEVOTHYROXINE 50 MCG TAB PO SCH (07:13)
[2021-03-17] MEDS: VENLAFAXINE HCL ER 37.5 MG CAP PO SCH (08:12)
[2021-03-17] MEDS: SUCRALFATE 1 GM TAB PO SCH ×4 (08:12→20:23)
[2021-03-17] MEDS: PANTOPRAZOLE 40 MG TABLET PO SCH ×2 (08:12→17:23)
[2021-03-17] MEDS: LURASIDONE 40 MG TAB PO SCH (08:12)
[2021-03-17] MEDS: lamoTRIgine 25 MG TAB PO SCH ×2 (08:12→20:23)
[2021-03-17] MEDS: busPIRone HCl 10 MG TAB PO SCH ×2 (08:13→20:23)
[2021-03-17] MEDS: SYMBICORT 160-4.5 MCG INHALER INHALATION SCH ×2 (08:13→21:19)
[2021-03-17] MEDS: NICOTINE 14MG/24HR PATCH TRANSDERM SCH (08:14)
[2021-03-17] MEDS: LORazepam 1 MG TAB PO PRN ×2 (10:56→20:26)
[2021-03-17] MEDS ORDERED: PRAZOSIN 1 MG CAP PO SCH (21:00)
--- NOTE | 2021-03-18 00:37 | P.PN ---
Progress Note - Text Progress Note Date: 03/17/21 Subjective: Patient was seen today as a cross coverage for Dr. Jarrell. The patient was evaluated, chart reviewed, case discussed with the treatment team. Patient reports interrupted sleep last night was of nightmares, and appetite was reported as "still very low ". Patient has been going to groups and other unit activities. The patient is compliant with her medications and denies any adverse reactions. She reports continued to feel depressed and occasionally hopeless but denies suicidal or homicidal ideation. Reports mood swings with very high anxiety related to lack of sleep and nightmares. Denies any hallucinations, paranoid ideation, delusions, or manic symptoms. Objective: Vitals has been reviewed. MENTAL STATUS EVALUATION: Appearance: Appears stated age, fairly groomed, average body built, and no specific features. Gait/ posture: Uses walker, normal arm swinging, no abnormal movements, with relaxed posture. Attitude and Behavior: engaged, related to the interviewer in socially accepted manner, fair eye contact during course of interview. Motor Activity: decreased psychomotor activity. Speech: spontaneous, slow rate, rhythm, and articulation. soft volume, not pressured. Language: Articulating, naming objects and repeat phrases. Mood: "depressed" Affect: restricted. Thought process: Linear, goal directed but slow. Association: intact. Thought content: Denies current delusion but reports PI, denies suicidal thoughts, Denies current homicidal thoughts, Denies current intentions, or plans. Perception: Denies any current hallucinations Alertness: No impairment. Concentration: Impaired, slow. Orientation: Not fully oriented to time, but oriented to place, person and situation. Insight regarding psychiatric condition: fair Judgment regarding daily activities and social situation: fair Impulse control: fair Assessment: Bipolar disorder, mixed episode, with psychotic features. Anxiety disorder, unspecified. Rule out posttraumatic stress disorder. Nicotine use disorder. Plan: Continue inpatient level of care due to need for further monitoring and stabilization Precautions: Continue 15 minutes check for safety. Consider medical consultation if any acute medical issues arise. Provide the patient individual, group therapy, substance use disorder counseling to give better insight and learn coping skills. Medications: Continue Latuda 40 mg was dinnertime for mood stabilization and psychotic symptoms. Continue BuSpar and increase the dose to 20 mg twice daily for anxiety symptoms. Continue Effexor XR 37.5 mg daily for depression and anxiety symptoms. Continue Vistaril 25 mg as needed for anxiety. Continue trazodone 100 mg at bedtime as needed for insomnia. Start prazosin 1 mg at bedtime for nightmares. hold if Blood pressure is lower than 90/55 Discontinue Seroquel. Continue as needed medications for psychiatric emergencies including psychosis, agitation and anxiety. Continue non-psychiatric medications for medical conditions as recommended by the medical team. Discharge patient to OUTPATIENT services upon a stabilization
[2021-03-18] MEDS: SUCRALFATE 1 GM TAB PO SCH ×4 (08:17→19:47)
[2021-03-18] MEDS: busPIRone HCl 10 MG TAB PO SCH ×2 (08:17→19:47)
[2021-03-18] MEDS: VENLAFAXINE HCL ER 37.5 MG CAP PO SCH (08:17)
[2021-03-18] MEDS: lamoTRIgine 25 MG TAB PO SCH ×2 (08:17→19:48)
[2021-03-18] MEDS: LURASIDONE 40 MG TAB PO SCH (08:17)
[2021-03-18] MEDS: LEVOTHYROXINE 50 MCG TAB PO SCH (08:18)
[2021-03-18] MEDS: PANTOPRAZOLE 40 MG TABLET PO SCH ×2 (08:18→17:42)
[2021-03-18] MEDS: ACETAMINOPHEN TAB 325 MG TAB PO PRN (08:20)
[2021-03-18] MEDS: SYMBICORT 160-4.5 MCG INHALER INHALATION SCH ×2 (09:23→19:47)
[2021-03-18] MEDS: NICOTINE 14MG/24HR PATCH TRANSDERM SCH (09:37)
[2021-03-18] MEDS: LORazepam 1 MG TAB PO PRN ×2 (10:13→19:50)
--- NOTE | 2021-03-18 12:02 | P.PN ---
Progress Note - Text Progress Note Date: 03/18/21 Interval History: Patient was seen sitting in her room and was agreeable to speak with automobile service writer in her room. The patient reports that she has been feeling increased depression in regards to her . She states that her is currently admitted to the hospital for his alcohol use and that she informed him that she will be him yesterday. She does express increased levels of stress and difficulty sleeping. She reports racing thoughts, and mood lability. She is not endorsing any suicidal or homicidal ideation, intention, and/or plan at this time. She is not reporting any auditory or visual hallucinations. She denies any paranoia or other delusions. She has been adherent with her medications and is not reporting any significant side effects at this time. She does express that she contacted her sister to get a wheel and caster repairer to have her removed from her home. Mental Status Exam: General Appearance: Patient appears to be older than stated age is alert, directable, and cooperative. Patient is dressed in hospital gown. Behavior: Patient is calmly seated without any agitated behavior. Patient ambulates with a walker. Eye contact is appropriate. Psychomotor activity appears normal. Speech: Patient's speech is fluent and nonpressured. Mood/Affect: Mood is "depressed", affect is congruent and tearful. Suicidality/Homicidality: The patient is currently denying any suicidal or homicidal ideation, intention, and/or plan. Perceptions: Patient denies any visual hallucinations and denies any auditory hallucinations Though content/process: There is no evidence of any delusional thought content and thought process is linear and goal-directed. Memory and concentration: AOX3, grossly intact for the purposes of this session Judgment and insight: Improving mildly Vital Signs Temp 97.5 F L 03/18/21 06:58 Pulse 104 H 03/18/21 06:58 Resp 18 03/18/21 06:58 BP 138/76 03/18/21 06:58 Pulse Ox 98 03/16/21 00:44 Intake & Output 03/17/21 03/18/21 03/18/21 18:59 06:59 18:59 Weight 71.7 kg Assessment Bipolar disorder, mixed episode, with psychotic features Anxiety disorder, unspecified Rule out posttraumatic stress disorder Nicotine use disorder Plan: -Patient continues to meet criteria for inpatient psychiatric admission for symptom stabilization and safety. Patient has signed adult voluntary form -Medications: Continue BuSpar 20 mg by mouth twice a day for anxiety Increase Lamictal to 25 mg daily and 50 mg at bedtime for mood stabilization/bipolar depression Continue Effexor XR 37.5 mg by mouth daily for depression/anxiety Continue Latuda 40 mg by mouth daily for mood stabilization/psychosis Increase prazosin to 2 mg by mouth at bedtime for PTSD related nightmares -When necessary Ativan and Haldol fir agitation/aggression. -NRT - nicotine patch -SW on board for discharge planning. Encouraged the patient to participate in milieu.
[2021-03-18] MEDS ORDERED: PRAZOSIN 1 MG CAP PO SCH (21:00)
[2021-03-19] MEDS: LEVOTHYROXINE 50 MCG TAB PO SCH (06:31)
[2021-03-19] MEDS: SUCRALFATE 1 GM TAB PO SCH ×4 (07:50→20:48)
[2021-03-19] MEDS: PANTOPRAZOLE 40 MG TABLET PO SCH ×2 (07:50→17:47)
[2021-03-19] MEDS: ACETAMINOPHEN TAB 325 MG TAB PO PRN ×2 (07:51→12:56)
[2021-03-19] MEDS: VENLAFAXINE HCL ER 37.5 MG CAP PO SCH (07:52)
[2021-03-19] MEDS: LORazepam 1 MG TAB PO PRN ×3 (07:52→22:29)
[2021-03-19] MEDS: busPIRone HCl 10 MG TAB PO SCH ×2 (07:52→20:48)
[2021-03-19] MEDS: LURASIDONE 40 MG TAB PO SCH (07:52)
[2021-03-19] MEDS: SYMBICORT 160-4.5 MCG INHALER INHALATION SCH ×2 (08:38→20:47)
[2021-03-19] MEDS ORDERED: lamoTRIgine 25 MG TAB PO SCH (09:00)
--- NOTE | 2021-03-19 09:48 | P.PN ---
Progress Note - Text Progress Note Date: 03/19/21 Interval History: Patient was seen sitting in her room and was agreeable to speak with typewriter mechanic in her room. The patient presents that she is feeling "all over the place." She does express episodes of increased depression with crying episodes that occur intermittently throughout the day. She denies any suicidal or homicidal ideation, intention, and/or plan. She reports no auditory or visual hallucinations. Patient's primary concern at this time is her elevated anxiety. She reports she feels she is in a constant state of panic. She reports it is especially worse at nighttime. She endorses palpitations but no chest pain or shortness of breath. She states it lasts for what feels like hours. The patient does report she had a nightmare last night which caused her to wake up in a panic as well. Mental Status Exam: General Appearance: Patient appears to be older than stated age is alert, directable, and cooperative. Patient is dressed in hospital gown. Behavior: Patient is calmly seated without any agitated behavior. Patient ambulates with a walker. Eye contact is appropriate. Psychomotor activity appears normal. Speech: Patient's speech is fluent and nonpressured. Mood/Affect: Mood is "very anxious", affect is incongruent as she appears calm and with a constricted range. Suicidality/Homicidality: The patient is currently denying any suicidal or homicidal ideation, intention, and/or plan. Perceptions: Patient denies any visual hallucinations and denies any auditory hallucinations Though content/process: There is no evidence of any delusional thought content and thought process is linear and goal-directed. Memory and concentration: AOX3, grossly intact for the purposes of this session Judgment and insight: Improving mildly Vital Signs Temp 98.3 F 03/19/21 07:04 Pulse 107 H 03/19/21 07:50 Resp 18 03/19/21 07:50 BP 127/69 03/19/21 07:50 Pulse Ox 98 03/16/21 00:44 Assessment Bipolar disorder, mixed episode, with psychotic features Anxiety disorder, unspecified Rule out posttraumatic stress disorder Nicotine use disorder Plan: -Patient continues to meet criteria for inpatient psychiatric admission for symptom stabilization and safety. Patient has signed adult voluntary form -Medications: Continue BuSpar 20 mg by mouth twice a day for anxiety Increase Lamictal to 50 mg twice a day for mood stabilization/bipolar depression Continue Effexor XR 37.5 mg by mouth daily for depression/anxiety. Consider taper of this medication to prevent polypharmacy. Continue Latuda 40 mg by mouth daily for mood stabilization/psychosis Increase prazosin to 3 mg by mouth at bedtime for PTSD related nightmares -When necessary Ativan and Haldol fir agitation/aggression. -NRT - nicotine patch -SW on board for discharge planning. Encouraged the patient to participate in milieu.
[2021-03-19] MEDS: IPRATROPIUM-ALBUTEROL 3 ML NEB INHALATION PRN ×2 (16:08→23:04)
[2021-03-19] MEDS: lamoTRIgine 25 MG TAB PO SCH (20:47)
[2021-03-19] MEDS ORDERED: PRAZOSIN 1 MG CAP PO SCH (21:00)
[2021-03-20] MEDS: LEVOTHYROXINE 50 MCG TAB PO SCH (06:32)
[2021-03-20 06:58] VITALS: RESP 16; TEMP 97.7
[2021-03-20] MEDS: SYMBICORT 160-4.5 MCG INHALER INHALATION SCH (08:50)
[2021-03-20] MEDS: busPIRone HCl 10 MG TAB PO SCH (08:50)
[2021-03-20] MEDS: SUCRALFATE 1 GM TAB PO SCH (08:50)
[2021-03-20] MEDS: PANTOPRAZOLE 40 MG TABLET PO SCH (08:50)
[2021-03-20] MEDS: LORazepam 1 MG TAB PO PRN (08:50)
[2021-03-20] MEDS: VENLAFAXINE HCL ER 37.5 MG CAP PO SCH (08:51)
[2021-03-20] MEDS: LURASIDONE 40 MG TAB PO SCH (08:51)
[2021-03-20 08:56] VITALS: BP 109/71
[2021-03-20] MEDS ORDERED: lamoTRIgine 25 MG TAB PO SCH (09:00)
[2021-03-20] MEDS: IPRATROPIUM-ALBUTEROL 3 ML NEB INHALATION PRN (10:28)
[2021-03-20 10:29] VITALS: PULSE 99
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
== END 2021-03-20 13:17 | disposition home or self-care (01) | DRG 885 ==
LOC: 3MHU 00:12
PROVIDERS: ADMIT Psychiatry & Neurology Psychiatry; ATTEND Psychiatry & Neurology Psychiatry
DX: F31.60 Bipolar disorder, current episode mixed, unspecified (principal); F31.30 Bipolar disorder, current episode depressed, mild or moderate severity, unspecified; E03.9 Hypothyroidism, unspecified; F41.0 Panic disorder [episodic paroxysmal anxiety]; F43.10 Post-traumatic stress disorder, unspecified; F60.0 Paranoid personality disorder; J44.9 Chronic obstructive pulmonary disease, unspecified; K21.9 Gastro-esophageal reflux disease without esophagitis; N18.30 Chronic kidney disease, stage 3 unspecified; T42.4X2A Poisoning by benzodiazepines, intentional self-harm, initial encounter; Z72.0 Tobacco use; Z78.1 Physical restraint status; Z79.890 Hormone replacement therapy; Z79.899 Other long term (current) drug therapy; Z82.49 Family history of ischemic heart disease and other diseases of the circulatory system; Z90.710 Acquired absence of both cervix and uterus; Z91.410 Personal history of adult physical and sexual abuse; Z91.5 Personal history of self-harm
CPT/HCPCS: 94640

== ENCOUNTER 2021-03-26 15:39 | Emergency (ER) | payer MEDICARE ==
[2021-03-26] MEDS ORDERED: SODIUM CHLORIDE 0.9% 1,000 ML IV STA (16:30)
[2021-03-26 16:52] LABS: Basophils % (A) 1 %; Eosinophils # (A) 0.1 k/uL (0-0.7); Eosinophils % (A) 1 %; HCT 36.3 % (34.0-46.0); HGB 12.9 gm/dL (11.4-16.0); Lymphocytes % (A) 25 %; MCH 31.4 pg (25.0-35.0); MCHC 35.5 g/dL (31.0-37.0); MCV 88.6 fL (80.0-100.0); Mean Platelet Volume 6.8; Monocytes # (A) 0.5 k/uL (0-1.0); Monocytes % (A) 7 %; Neutrophils # (A) 5.3 k/uL (1.3-7.7); Neutrophils % (A) 66 %; Platelet Count 318 k/uL (150-450); RDW 13.4 % (11.5-15.5); WBC 8.1 k/uL (3.8-10.6)
[2021-03-26 16:52] LABS: Appearance,Urine Clear (Clear); Bilirubin,Urine Negative (Negative); Blood,Urine Negative (Negative); Color,Urine Yellow; Glucose,Urine (UA) Negative (Negative); Ketones,Urine Negative (Negative); Leukocyte Esterase,Urine Negative (Negative); Nitrite,Urine Negative (Negative); Protein,Urine Negative (Negative); Specific Gravity,Urine 1.013 (1.001-1.035); Urobilinogen,Urine <2.0 mg/dL (<2.0)
--- NOTE | 2021-03-26 16:56 | XR ---
EXAMINATION TYPE: XR chest 2V DATE OF EXAM: 03/26/2021 COMPARISON: 03/13/2021 HISTORY: Dizziness TECHNIQUE: 2 views FINDINGS: There is no heart failure nor confluent pneumonic infiltrate. Costophrenic angles are clear . Heart size is fairly normal. There are chest leads. IMPRESSION: No active cardiopulmonary disease. No change.
--- NOTE | 2021-03-26 17:05 | ED ---
Recheck HPI - General Chief Complaint: Recheck/Abnormal Lab/Rx Stated Complaint: Syncope Time Seen by Provider: 03/26/21 16:20 Source: patient, RN notes reviewed Mode of arrival: wheelchair Limitations: no limitations - History of Present Illness Initial Comments: Patient is a 61-year-old female that presents to the emergency department complaining of several mouth sores after taking amoxicillin for strep throat. She notes that she had hives from amoxicillin so she quit taking it. She notes that she does have several lesions inside her mouth and several on the left lateral aspect of her mouth that are honey crusted. She notes that she's also been fainting at home but doesn't want. Patient denied any other symptoms or complaints at this time. She denied any chest pain shortness of breath headache nausea vomiting diarrhea constipation fever fatigue chills. - Related Data Home Medications Medication Instructions Recorded Confirmed Pantoprazole Sodium [Protonix] 40 mg PO BID 05/02/19 03/20/21 Sucralfate [Carafate] 1 gm PO ACHS 02/04/21 03/20/21 Previous Rx's Medication Instructions Recorded Budesonide-Formot 160-4.5 Mcg 2 puff INHALATION RT-BID 14 Days 03/20/21 [Symbicort 160-4.5 Mcg Inhaler] puff Ipratropium-Albuterol Nebulize 3 ml INHALATION RT-QID PRN 14 Days 03/20/21 [Duoneb 0.5 mg-3 mg/3 ml Soln] ml Levothyroxine Sodium [Synthroid] 50 mcg PO DAILY@0630 30 Days tab 03/20/21 Lurasidone [Latuda] 40 mg PO DAILY 30 Days tab 03/20/21 Prazosin [Minipress] 3 mg PO HS 30 Days cap 03/20/21 Venlafaxine HCl ER [Effexor XR] 37.5 mg PO DAILY 30 Days 03/20/21 cap.er.24h busPIRone HCl [Buspar] 20 mg PO BID 30 Days tab 03/20/21 lamoTRIgine [LaMICtal] 50 mg PO BID 30 Days tab 03/20/21 Mupirocin [Mupirocin 2%] 1 applic TOPICAL TID 10 Days #30 gm 03/26/21 Allergies Allergy/AdvReac Type Severity Reaction Status Date / Time No Known Allergies Allergy Verified 03/26/21 15:47 Review of Systems ROS Statement: Those systems with pertinent positive or pertinent negative responses have been documented in the HPI. ROS Other: All systems not noted in ROS Statement are negative. Past Medical History Past Medical History: COPD, Renal Disease, Thyroid Disorder Additional Past Medical History / Comment(s): cysts on (R) kidney. History of Any Multi-Drug Resistant Organisms: None Reported Past Surgical History: Cholecystectomy, Hysterectomy Additional Past Surgical History / Comment(s): parathyroidectomy Past Anesthesia/Blood Transfusion Reactions: No Reported Reaction Past Psychological History: Bipolar Smoking Status: Never smoker Past Alcohol Use History: None Reported Past Drug Use History: Opiates, Prescription Drug Abuse - Past Family History Father Family Medical History: Coronary Artery Disease (CAD) Additional Family Medical History / Comment(s): Father is of blood cancer. Mother Family Medical History: Coronary Artery Disease (CAD) Additional Family Medical History / Comment(s): Mother is living General Exam Limitations: no limitations General appearance: alert, in no apparent distress Head exam: Present: atraumatic, normocephalic, normal inspection Eye exam: Present: normal appearance, PERRL, EOMI. Absent: scleral icterus, conjunctival injection, periorbital swelling Expanded Mouth exam: Absent: normal external inspection (Several small skin lesions with crusted skin at the lateral aspect of the left side), drooling, trismus, muffled voice, tongue normal, tongue elevation, laceration Neck exam: Present: normal inspection Respiratory exam: Present: normal lung sounds bilaterally. Absent: respiratory distress, wheezes, rales, rhonchi, stridor Cardiovascular Exam: Present: regular rate, normal rhythm, normal heart sounds. Absent: systolic murmur, diastolic murmur, rubs, gallop, clicks Extremities exam: Present: normal inspection, full ROM, normal capillary refill. Absent: tenderness, pedal edema, joint swelling, calf tenderness Neurological exam: Present: alert, oriented X3 Psychiatric exam: Present: normal affect, normal mood Skin exam: Present: warm, dry, intact, normal color. Absent: rash Course Vital Signs 03/26/21 15:48 Temperature 99.6 F Pulse Rate 66 Respiratory 16 Rate Blood Pressure 103/54 O2 Sat by Pulse 100 Oximetry Medical Decision Making - Medical Decision Making 61-year-old female complaining of mouth sores after taking amoxicillin for strep throat. Labs, EKG, chest x-ray, 1 L normal saline ordered. Labs unremarkable. Chest x-ray shows no acute cardiopulmonary process. Case discussed with Dr. Rod, patient can discharge home with antibiotic ointment for suspected impetigo. - Lab Data Result diagrams: 03/26/21 16:34 03/26/21 16:34 Lab Results 03/26/21 03/26/21 03/26/21 Range/Units 16:34 16:34 16:41 WBC 8.1 (3.8-10.6) k/uL RBC 4.10 (3.80-5.40) m/uL Hgb 12.9 (11.4-16.0) gm/dL Hct 36.3 (34.0-46.0) % MCV 88.6 (80.0-100.0) fL MCH 31.4 (25.0-35.0) pg MCHC 35.5 (31.0-37.0) g/dL RDW 13.4 (11.5-15.5) % Plt Count 318 (150-450) k/uL MPV 6.8 Neutrophils % 66 % Lymphocytes % 25 % Monocytes % 7 % Eosinophils % 1 % Basophils % 1 % Neutrophils # 5.3 (1.3-7.7) k/uL Lymphocytes # 2.0 (1.0-4.8) k/uL Monocytes # 0.5 (0-1.0) k/uL Eosinophils # 0.1 (0-0.7) k/uL Basophils # 0.0 (0-0.2) k/uL Sodium 141 (137-145) mmol/L Potassium 3.8 (3.5-5.1) mmol/L Chloride 109 H (98-107) mmol/L Carbon Dioxide 21 L (22-30) mmol/L Anion Gap 11 mmol/L BUN 17 (7-17) mg/dL Creatinine 1.63 H (0.52-1.04) mg/dL Est GFR (CKD-EPI)AfAm 39 (>60 ml/min/1.73 sqM) Est GFR (CKD-EPI)NonAf 34 (>60 ml/min/1.73 sqM) Glucose 95 (74-99) mg/dL Calcium 10.2 (8.4-10.2) mg/dL Total Bilirubin 0.3 (0.2-1.3) mg/dL AST 32 (14-36) U/L ALT 31 (4-34) U/L Alkaline Phosphatase 146 H (38-126) U/L Total Protein 6.6 (6.3-8.2) g/dL Albumin 4.2 (3.5-5.0) g/dL Urine Color Yellow Urine Appearance Clear (Clear) Urine pH 6.0 (5.0-8.0) Ur Specific [place] 1.013 (1.001-1.035) Urine Protein Negative (Negative) Urine Glucose (UA) Negative (Negative) Urine Ketones Negative (Negative) Urine Blood Negative (Negative) Urine Nitrite Negative (Negative) Urine Bilirubin Negative (Negative) Urine Urobilinogen <2.0 (<2.0) mg/dL Ur Leukocyte Esterase Negative (Negative) - EKG Data -: EKG Interpreted by [facility] EKG shows normal: sinus rhythm Rate: normal EKG Comments: Ventricular rate 55 bpm, IN interval 160 ms, QRS duration 112 ms, QTC 447 ms, PRT axis 20/71/38. Sinus bradycardia, otherwise normal ECG. ECG appears similar to previous studies. - Radiology Data Radiology results: report reviewed, image reviewed Chest x-ray: No active cardiopulmonary disease. No change. Disposition Clinical Impression: Impetigo Disposition: HOME SELF-CARE Condition: Stable Instructions (If sedation given, give patient instructions): Impetigo (ED) Additional Instructions: Please return to the Emergency Department if symptoms worsen or any other conc erns. Use antibiotic ointment as prescribed. Follow-up primary care. Follow-up with dentist as needed. Is patient prescribed a controlled substance at d/c from ED?: No Referrals: Angel Ansari MD [Primary Care Provider] - 1-2 days Time of Disposition: 17:24
[2021-03-26 17:08] LABS: Albumin 4.2 g/dL (3.5-5.0); Calcium 10.2 mg/dL (8.4-10.2); Potassium 3.8 mmol/L (3.5-5.1); Total Bilirubin 0.3 mg/dL (0.2-1.3); Total Protein 6.6 g/dL (6.3-8.2)
[2021-03-26 17:17] VITALS: RESP 22
[2021-03-26 18:05] VITALS: BP 133/75; PULSE 61; TEMP 98.2
== END 2021-03-26 18:02 | disposition home or self-care (01) ==
LOC: EC 15:39
DX: L01.00 Impetigo, unspecified (principal); R55 Syncope and collapse; J44.9 Chronic obstructive pulmonary disease, unspecified; F31.9 Bipolar disorder, unspecified; F11.90 Opioid use, unspecified, uncomplicated; Z79.51 Long term (current) use of inhaled steroids; Z79.899 Other long term (current) drug therapy
CPT/HCPCS: 36415; 71046; 80053; 81003; 85025; 93005; 96360; 99284

== ENCOUNTER 2021-04-18 14:09 | Inpatient (IN) | payer MEDICARE ==
[2021-04-18] MEDS ORDERED: SODIUM CHLORIDE 0.9% 500 ML 500 ML IV STA (14:45)
--- NOTE | 2021-04-18 14:55 | ED ---
General Adult HPI - General Stated complaint: Mental Health Time Seen by Provider: 04/18/21 14:22 Source: patient, RN notes reviewed, old records reviewed - History of Present Illness Initial comments: 61-year-old female brought in for suicide attempt, mental health evaluation. Patient admits to taking "a handful" of Klonopin. She denies any other drugs or alcohol. She believes this was several hours prior to arrival although history is somewhat limited in this patient. She states this was a suicide attempt and she's been having issues with her lately. - Related Data Home Medications Medication Instructions Recorded Confirmed Pantoprazole Sodium [Protonix] 40 mg PO BID 05/02/19 04/18/21 Sucralfate [Carafate] 1 gm PO ACHS 02/04/21 04/18/21 hydrOXYzine pamoate [hydrOXYzine 100 mg PO HS PRN 04/18/21 04/18/21 PAMOATE] Previous Rx's Medication Instructions Recorded Budesonide-Formot 160-4.5 Mcg 2 puff INHALATION RT-BID 14 Days 03/20/21 [Symbicort 160-4.5 Mcg Inhaler] puff Ipratropium-Albuterol Nebulize 3 ml INHALATION RT-QID PRN 14 Days 03/20/21 [Duoneb 0.5 mg-3 mg/3 ml Soln] ml Levothyroxine Sodium [Synthroid] 50 mcg PO DAILY@0630 30 Days tab 03/20/21 Lurasidone [Latuda] 40 mg PO DAILY 30 Days tab 03/20/21 Prazosin [Minipress] 3 mg PO HS 30 Days cap 03/20/21 Venlafaxine HCl ER [Effexor XR] 37.5 mg PO DAILY 30 Days 03/20/21 cap.er.24h busPIRone HCl [Buspar] 20 mg PO BID 30 Days tab 03/20/21 lamoTRIgine [LaMICtal] 50 mg PO BID 30 Days tab 03/20/21 Allergies Allergy/AdvReac Type Severity Reaction Status Date / Time No Known Allergies Allergy Verified 04/18/21 23:35 Review of Systems ROS Statement: Those systems with pertinent positive or pertinent negative responses have been documented in the HPI. ROS Other: All systems not noted in ROS Statement are negative. Past Medical History Past Medical History: COPD, Renal Disease, Thyroid Disorder Additional Past Medical History / Comment(s): cysts on (R) kidney. History of Any Multi-Drug Resistant Organisms: None Reported Past Surgical History: Cholecystectomy, Hysterectomy Additional Past Surgical History / Comment(s): parathyroidectomy Past Anesthesia/Blood Transfusion Reactions: No Reported Reaction Past Psychological History: Bipolar Smoking Status: Never smoker Past Alcohol Use History: None Reported Past Drug Use History: Opiates, Prescription Drug Abuse - Past Family History Father Family Medical History: Coronary Artery Disease (CAD) Additional Family Medical History / Comment(s): Father is of blood cancer. Mother Family Medical History: Coronary Artery Disease (CAD) Additional Family Medical History / Comment(s): Mother is living General Exam General appearance: in no apparent distress, appears intoxicated, lethargic Head exam: Present: atraumatic, normocephalic Eye exam: Present: normal appearance, PERRL ENT exam: Present: normal exam Neck exam: Present: normal inspection. Absent: tenderness, meningismus Respiratory exam: Present: normal lung sounds bilaterally. Absent: respiratory distress, wheezes Cardiovascular Exam: Present: regular rate, normal rhythm GI/Abdominal exam: Present: soft. Absent: distended, tenderness, guarding Extremities exam: Present: normal inspection, normal capillary refill. Absent: pedal edema Neurological exam: Present: alert, CN II-XII intact. Absent: motor sensory deficit Psychiatric exam: Present: flat affect, suicidal ideation Skin exam: Present: warm, dry, intact. Absent: cyanosis, diaphoretic Course Vital Signs 04/18/21 04/18/21 04/18/21 15:04 16:01 18:39 Temperature 97.6 F Pulse Rate 75 65 56 L Respiratory 14 14 14 Rate Blood Pressure 138/86 123/83 112/67 O2 Sat by Pulse 98 99 100 Oximetry 04/18/21 22:27 Temperature Pulse Rate 56 L Respiratory 16 Rate Blood Pressure 118/63 O2 Sat by Pulse 100 Oximetry - Reevaluation(s) Reevaluation #1: 04/18/21 1500 Age and care is signed out to Dr. Rodriguez awaiting laboratory testing, imaging. Patient will require medical clearance prior to EPS evaluation. EKG Findings - EKG Comments: EKG Findings:: EKG: Normal sinus rhythm, right ventricular hypertrophy, rate of 73, KS interval 166, QRS duration 100, QTC 456, no ST segment elevation. Medical Decision Making - Medical Decision Making By review the medical record does appear that this patient was admitted for psychiatric evaluation and treatment. - Lab Data Result diagrams: 04/19/21 10:27 04/19/21 10:27 Lab Results 04/18/21 04/18/21 04/18/21 Range/Units 16:00 16:00 16:00 WBC 7.6 (3.8-10.6) k/uL RBC 4.83 (3.80-5.40) m/uL Hgb 15.3 (11.4-16.0) gm/dL Hct 43.1 (34.0-46.0) % MCV 89.2 (80.0-100.0) fL MCH 31.7 (25.0-35.0) pg MCHC 35.6 (31.0-37.0) g/dL RDW 13.2 (11.5-15.5) % Plt Count 200 (150-450) k/uL MPV 8.5 Neutrophils % 73 % Lymphocytes % 18 % Monocytes % 6 % Eosinophils % 1 % Basophils % 0 % Neutrophils # 5.5 (1.3-7.7) k/uL Lymphocytes # 1.4 (1.0-4.8) k/uL Monocytes # 0.5 (0-1.0) k/uL Eosinophils # 0.1 (0-0.7) k/uL Basophils # 0.0 (0-0.2) k/uL PT 10.3 (9.0-12.0) sec INR 1.0 (<1.2) Sodium (137-145) mmol/L Potassium (3.5-5.1) mmol/L Chloride (98-107) mmol/L Carbon Dioxide (22-30) mmol/L Anion Gap mmol/L BUN (7-17) mg/dL Creatinine (0.52-1.04) mg/dL Est GFR (CKD-EPI)AfAm (>60 ml/min/1.73 sqM) Est GFR (CKD-EPI)NonAf (>60 ml/min/1.73 sqM) Glucose (74-99) mg/dL Estimated Ave Glu mg/dL Hemoglobin A1c (4.0-6.0) % Plasma Lactic Acid Jorge (0.7-2.0) mmol/L Calcium (8.4-10.2) mg/dL Magnesium (1.6-2.3) mg/dL Total Bilirubin (0.2-1.3) mg/dL AST (14-36) U/L ALT (4-34) U/L Alkaline Phosphatase (38-126) U/L Total Protein (6.3-8.2) g/dL Albumin (3.5-5.0) g/dL TSH (0.465-4.680) mIU/L Urine Color Urine Appearance (Clear) Urine pH (5.0-8.0) Ur Specific [place] (1.001-1.035) Urine Protein (Negative) Urine Glucose (UA) (Negative) Urine Ketones (Negative) Urine Blood (Negative) Urine Nitrite (Negative) Urine Bilirubin (Negative) Urine Urobilinogen (<2.0) mg/dL Ur Leukocyte Esterase (Negative) Salicylates mg/dL Urine Opiates Screen Not Detected (NotDetected) Ur Oxycodone Screen Not Detected (NotDetected) Urine Methadone Screen Not Detected (NotDetected) Ur Propoxyphene Screen Not Detected (NotDetected) Acetaminophen ug/mL Ur Barbiturates Screen Not Detected (NotDetected) U Tricyclic Antidepress Not Detected (NotDetected) Ur Phencyclidine Scrn Not Detected (NotDetected) Ur Amphetamines Screen Not Detected (NotDetected) U Methamphetamines Scrn Not Detected (NotDetected) U Benzodiazepines Scrn Detected H (NotDetected) Urine Cocaine Screen Not Detected (NotDetected) U Marijuana (THC) Screen Not Detected (NotDetected) Serum Alcohol mg/dL 04/18/21 04/18/21 04/18/21 Range/Units 16:00 16:00 16:00 WBC (3.8-10.6) k/uL RBC (3.80-5.40) m/uL Hgb (11.4-16.0) gm/dL Hct (34.0-46.0) % MCV (80.0-100.0) fL MCH (25.0-35.0) pg MCHC (31.0-37.0) g/dL RDW (11.5-15.5) % Plt Count (150-450) k/uL MPV Neutrophils % % Lymphocytes % % Monocytes % % Eosinophils % % Basophils % % Neutrophils # (1.3-7.7) k/uL Lymphocytes # (1.0-4.8) k/uL Monocytes # (0-1.0) k/uL Eosinophils # (0-0.7) k/uL Basophils # (0-0.2) k/uL PT (9.0-12.0) sec INR (<1.2) Sodium 142 (137-145) mmol/L Potassium 4.5 (3.5-5.1) mmol/L Chloride 112 H (98-107) mmol/L Carbon Dioxide 24 (22-30) mmol/L Anion Gap 6 mmol/L BUN 16 (7-17) mg/dL Creatinine 1.08 H (0.52-1.04) mg/dL Est GFR (CKD-EPI)AfAm 65 (>60 ml/min/1.73 sqM) Est GFR (CKD-EPI)NonAf 56 (>60 ml/min/1.73 sqM) Glucose 93 (74-99) mg/dL Estimated Ave Glu mg/dL Hemoglobin A1c (4.0-6.0) % Plasma Lactic Acid Jorge 1.2 (0.7-2.0) mmol/L Calcium 10.0 (8.4-10.2) mg/dL Magnesium 2.1 (1.6-2.3) mg/dL Total Bilirubin 0.8 (0.2-1.3) mg/dL AST 43 H (14-36) U/L ALT 18 (4-34) U/L Alkaline Phosphatase 132 H (38-126) U/L Total Protein 6.8 (6.3-8.2) g/dL Albumin 4.2 (3.5-5.0) g/dL TSH (0.465-4.680) mIU/L Urine Color Light Yellow Urine Appearance Clear (Clear) Urine pH 6.0 (5.0-8.0) Ur Specific [place] 1.011 (1.001-1.035) Urine Protein Negative (Negative) Urine Glucose (UA) Negative (Negative) Urine Ketones Negative (Negative) Urine Blood Negative (Negative) Urine Nitrite Negative (Negative) Urine Bilirubin Negative (Negative) Urine Urobilinogen <2.0 (<2.0) mg/dL Ur Leukocyte Esterase Negative (Negative) Salicylates <1.0 mg/dL Urine Opiates Screen (NotDetected) Ur Oxycodone Screen (NotDetected) Urine Methadone Screen (NotDetected) Ur Propoxyphene Screen (NotDetected) Acetaminophen <10.0 ug/mL Ur Barbiturates Screen (NotDetected) U Tricyclic Antidepress (NotDetected) Ur Phencyclidine Scrn (NotDetected) Ur Amphetamines Screen (NotDetected) U Methamphetamines Scrn (NotDetected) U Benzodiazepines Scrn (NotDetected) Urine Cocaine Screen (NotDetected) U Marijuana (THC) Screen (NotDetected) Serum Alcohol <10 mg/dL 04/18/21 04/18/21 Range/Units 16:00 16:00 WBC (3.8-10.6) k/uL RBC (3.80-5.40) m/uL Hgb (11.4-16.0) gm/dL Hct (34.0-46.0) % MCV (80.0-100.0) fL MCH (25.0-35.0) pg MCHC (31.0-37.0) g/dL RDW (11.5-15.5) % Plt Count (150-450) k/uL MPV Neutrophils % % Lymphocytes % % Monocytes % % Eosinophils % % Basophils % % Neutrophils # (1.3-7.7) k/uL Lymphocytes # (1.0-4.8) k/uL Monocytes # (0-1.0) k/uL Eosinophils # (0-0.7) k/uL Basophils # (0-0.2) k/uL PT (9.0-12.0) sec INR (<1.2) Sodium (137-145) mmol/L Potassium (3.5-5.1) mmol/L Chloride (98-107) mmol/L Carbon Dioxide (22-30) mmol/L Anion Gap mmol/L BUN (7-17) mg/dL Creatinine (0.52-1.04) mg/dL Est GFR (CKD-EPI)AfAm (>60 ml/min/1.73 sqM) Est GFR (CKD-EPI)NonAf (>60 ml/min/1.73 sqM) Glucose (74-99) mg/dL Estimated Ave Glu mg/dL 82 Hemoglobin A1c 4.5 (4.0-6.0) % Plasma Lactic Acid Jorge (0.7-2.0) mmol/L Calcium (8.4-10.2) mg/dL Magnesium (1.6-2.3) mg/dL Total Bilirubin (0.2-1.3) mg/dL AST (14-36) U/L ALT (4-34) U/L Alkaline Phosphatase (38-126) U/L Total Protein (6.3-8.2) g/dL Albumin (3.5-5.0) g/dL TSH 0.321 L (0.465-4.680) mIU/L Urine Color Urine Appearance (Clear) Urine pH (5.0-8.0) Ur Specific [place] (1.001-1.035) Urine Protein (Negative) Urine Glucose (UA) (Negative) Urine Ketones (Negative) Urine Blood (Negative) Urine Nitrite (Negative) Urine Bilirubin (Negative) Urine Urobilinogen (<2.0) mg/dL Ur Leukocyte Esterase (Negative) Salicylates mg/dL Urine Opiates Screen (NotDetected) Ur Oxycodone Screen (NotDetected) Urine Methadone Screen (NotDetected) Ur Propoxyphene Screen (NotDetected) Acetaminophen ug/mL Ur Barbiturates Screen (NotDetected) U Tricyclic Antidepress (NotDetected) Ur Phencyclidine Scrn (NotDetected) Ur Amphetamines Screen (NotDetected) U Methamphetamines Scrn (NotDetected) U Benzodiazepines Scrn (NotDetected) Urine Cocaine Screen (NotDetected) U Marijuana (THC) Screen (NotDetected) Serum Alcohol mg/dL Disposition Clinical Impression: Benzodiazepine overdose, Suicide attempt, Psychiatric illness Disposition: OTHER INSTITUTION NOT DEFINED Condition: Stable Is patient prescribed a controlled substance at d/c from ED?: No Decision to Admit Reason: Admit from EC
--- NOTE | 2021-04-18 16:12 | CT ---
EXAMINATION TYPE: CT brain wo con DATE OF EXAM: 04/18/2021 COMPARISON: 03/12/2021 INDICATION: Patient poor historian DLP: 1035.4 mGycm, Automated exposure control for dose reduction was used. CONTRAST: None CT of the brain is performed utilizing 3 mm thick sections through the posterior fossa and 3 mm thick sections through the remaining calvarium. Study is performed within 24 hours of arrival to the hosp [facility]. No abnormal hyperdensity is present to suggest an acute intracranial hemorrhage. No mass lesion is evident. No acute infarcts are evident. Ventricles and sulci are appropriate for the patient age. Paranasal sinuses and mastoid air cells within the [id number] are clear. IMPRESSIONS: 1. No acute intracranial process.
[2021-04-18 16:13] LABS: Basophils % (A) 0 %; Eosinophils # (A) 0.1 k/uL (0-0.7); Eosinophils % (A) 1 %; HCT 43.1 % (34.0-46.0); HGB 15.3 gm/dL (11.4-16.0); Lymphocytes # (A) 1.4 k/uL (1.0-4.8); Lymphocytes % (A) 18 %; MCH 31.7 pg (25.0-35.0); MCHC 35.6 g/dL (31.0-37.0); MCV 89.2 fL (80.0-100.0); Mean Platelet Volume 8.5; Monocytes # (A) 0.5 k/uL (0-1.0); Monocytes % (A) 6 %; Neutrophils # (A) 5.5 k/uL (1.3-7.7); Neutrophils % (A) 73 %; Platelet Count 200 k/uL (150-450); RBC 4.83 m/uL (3.80-5.40); RDW 13.2 % (11.5-15.5); WBC 7.6 k/uL (3.8-10.6)
[2021-04-18 16:21] LABS: Prothrombin Time 10.3 sec (9.0-12.0)
[2021-04-18 16:22] LABS: Appearance,Urine Clear (Clear); Bilirubin,Urine Negative (Negative); Blood,Urine Negative (Negative); Color,Urine Light Yellow; Glucose,Urine (UA) Negative (Negative); Ketones,Urine Negative (Negative); Leukocyte Esterase,Urine Negative (Negative); Nitrite,Urine Negative (Negative); Protein,Urine Negative (Negative); Specific Gravity,Urine 1.011 (1.001-1.035); Urobilinogen,Urine <2.0 mg/dL (<2.0)
[2021-04-18 16:27] LABS: ALT 18 U/L (4-34); AST 43 U/L (14-36); Acetaminophen <10.0 ug/mL; African American GFR (CKD) 65 (>60 ml/min/1.73 sqM); Albumin 4.2 g/dL (3.5-5.0); Alcohol <10 mg/dL; Alkaline Phosphatase 132 U/L (38-126); Anion Gap 6 mmol/L; Blood Urea Nitrogen 16 mg/dL (7-17); Carbon Dioxide 24 mmol/L (22-30); Chloride 112 mmol/L (98-107); Glucose 93 mg/dL (74-99); Magnesium 2.1 mg/dL (1.6-2.3); Non-African American GFR(CKD) 56 (>60 ml/min/1.73 sqM); Salicylate <1.0 mg/dL; Sodium 142 mmol/L (137-145); Total Bilirubin 0.8 mg/dL (0.2-1.3); Total Protein 6.8 g/dL (6.3-8.2)
[2021-04-18 16:33] LABS: Potassium 4.5 mmol/L (3.5-5.1)
[2021-04-18 16:42] LABS: Amphetamine Screen,Urine Not Detected (NotDetected); Barbiturate Screen,Urine Not Detected (NotDetected); Benzodiazepines Screen,Urine Detected (NotDetected); Cocaine Screen,Urine Not Detected (NotDetected); Methadone Screen, Urine Not Detected (NotDetected); Opiate Screen,Urine Not Detected (NotDetected); Oxycodone Screen, Urine Not Detected (NotDetected); Phencyclidine Screen,Urine Not Detected (NotDetected); Tricyclic Antidepressant,Urine Not Detected (NotDetected); Urn Cannabinoid Scrn Not Detected (NotDetected)
[2021-04-18] MEDS ORDERED: LORazepam 1 MG TAB PO PRN (22:52)
[2021-04-18] MEDS ORDERED: MAG HYDROX/AL HYDROX/SIMETH 30 ML CUP PO PRN (22:52)
[2021-04-18] MEDS ORDERED: MAGNESIUM HYDROXIDE 2,400 MG/10 ML CUP PO PRN (22:52)
[2021-04-18] MEDS ORDERED: hydrOXYzine pamoate 25 MG CAP PO PRN (22:57)
[2021-04-18] MEDS ORDERED: IPRATROPIUM-ALBUTEROL 3 ML NEB INHALATION PRN (22:57)
[2021-04-18] MEDS ORDERED: LORazepam 2 MG/ML INJ IM PRN (22:59)
[2021-04-18] MEDS ORDERED: ALBUTEROL INHALER 60 PUFF/8 GM INHALER (MHU) INHALATION PRN (23:58)
--- NOTE | 2021-04-19 00:53 | ED ---
General Adult HPI - General Chief complaint: Psychiatric Symptoms Stated complaint: Mental Health Time Seen by Provider: 04/18/21 16:00 Source: patient, RN notes reviewed, old records reviewed Mode of arrival: EMS - History of Present Illness Initial comments: Patient was signed out to me pending reevaluation and results of laboratory studies after a benzodiazepine overdose. This was a suicide attempt. Patient was signed out in stable condition, and slightly lethargic. EKG was within normal limits per prior physician. Upon discussion with the patient, she does endorse suicidal ideations as well as a suicide attempt. She does not want to be admitted to the psychiatric unit. She is able to follow commands and answer questions without difficulty. Mental status is improved at this time. Disposition is pending results of laboratory studies. - Related Data Home Medications Medication Instructions Recorded Confirmed Pantoprazole Sodium [Protonix] 40 mg PO BID 05/02/19 04/18/21 Sucralfate [Carafate] 1 gm PO ACHS 02/04/21 04/18/21 hydrOXYzine pamoate [hydrOXYzine 100 mg PO HS PRN 04/18/21 04/18/21 PAMOATE] Previous Rx's Medication Instructions Recorded Budesonide-Formot 160-4.5 Mcg 2 puff INHALATION RT-BID 14 Days 03/20/21 [Symbicort 160-4.5 Mcg Inhaler] puff Ipratropium-Albuterol Nebulize 3 ml INHALATION RT-QID PRN 14 Days 03/20/21 [Duoneb 0.5 mg-3 mg/3 ml Soln] ml Levothyroxine Sodium [Synthroid] 50 mcg PO DAILY@0630 30 Days tab 03/20/21 Lurasidone [Latuda] 40 mg PO DAILY 30 Days tab 03/20/21 Prazosin [Minipress] 3 mg PO HS 30 Days cap 03/20/21 Venlafaxine HCl ER [Effexor XR] 37.5 mg PO DAILY 30 Days 03/20/21 cap.er.24h busPIRone HCl [Buspar] 20 mg PO BID 30 Days tab 03/20/21 lamoTRIgine [LaMICtal] 50 mg PO BID 30 Days tab 03/20/21 Allergies Allergy/AdvReac Type Severity Reaction Status Date / Time No Known Allergies Allergy Verified 04/18/21 23:35 Review of Systems ROS Statement: Those systems with pertinent positive or pertinent negative responses have been documented in the HPI. ROS Other: All systems not noted in ROS Statement are negative. Past Medical History Past Medical History: COPD, Renal Disease, Thyroid Disorder Additional Past Medical History / Comment(s): cysts on (R) kidney. History of Any Multi-Drug Resistant Organisms: None Reported Past Surgical History: Cholecystectomy, Hysterectomy Additional Past Surgical History / Comment(s): parathyroidectomy Past Anesthesia/Blood Transfusion Reactions: No Reported Reaction Past Psychological History: Bipolar Smoking Status: Never smoker Past Alcohol Use History: None Reported Past Drug Use History: Opiates, Prescription Drug Abuse - Past Family History Father Family Medical History: Coronary Artery Disease (CAD) Additional Family Medical History / Comment(s): Father is of blood cancer. Mother Family Medical History: Coronary Artery Disease (CAD) Additional Family Medical History / Comment(s): Mother is living General Exam - General Exam Comments Initial Comments: General: Appears in no acute distress. HEAD: Normal with no signs of head trauma. EYES: PERRLA, EOMI, conjunctiva normal, no discharge. ENT: Hearing grossly intact, normal oropharynx. RESPIRATORY: Clear breath sounds bilaterally. No wheezes, rales, or rhonchi. C/V: Regular rate and rhythm. S1 and S2 auscultated, no edema, peripheral pulses 2+ and intact throughout ABD: Abd is soft, nontender, nondistended EXT: Normal range of motion, no obvious deformity SKIN: No rashes or lesions observed on exposed skin. NEURO: Alert and oriented x 4. Cranial nerves II-XII intact. No focal sensory or strength deficits. Cerebellar function is intact as evidenced by normal finger-nose testing. Patient is following commands without difficulty. Course Vital Signs 04/18/21 04/18/21 04/18/21 15:04 16:01 18:39 Temperature 97.6 F Pulse Rate 75 65 56 L Respiratory 14 14 14 Rate Blood Pressure 138/86 123/83 112/67 O2 Sat by Pulse 98 99 100 Oximetry 04/18/21 22:27 Temperature Pulse Rate 56 L Respiratory 16 Rate Blood Pressure 118/63 O2 Sat by Pulse 100 Oximetry Medical Decision Making - Medical Decision Making Patient was signed out to me with disposition pending results of laboratory studies. Patient is now fully alert and oriented and is following commands. She is no longer lethargic. This is after an attempted suicide attempt by benzodiazepine overdose. Laboratory studies are relatively unremarkable. Creatinine is slightly elevated to 1.08. AST is elevated to 43. Alk phos is 132. Benzos are detected in the EDS. Remainder of the toxicology workup is unremarkable. EKG evaluated by the prior physician was normal. Head CT shows no acute intracranial process. Extremities the patient's medically cleared for evaluation by psychiatry. Disposition is pending psychiatric evaluation. Psychiatry determined that the patient meets requirements for inpatient psychiatry admission. I did complete the CERT for admission after discussion with the patient. Patient will therefore be admitted to inpatient psychiatry in stable condition. - Lab Data Result diagrams: 04/18/21 16:00 04/18/21 16:00 Lab Results 04/18/21 04/18/21 04/18/21 Range/Units 16:00 16:00 16:00 WBC 7.6 (3.8-10.6) k/uL RBC 4.83 (3.80-5.40) m/uL Hgb 15.3 (11.4-16.0) gm/dL Hct 43.1 (34.0-46.0) % MCV 89.2 (80.0-100.0) fL MCH 31.7 (25.0-35.0) pg MCHC 35.6 (31.0-37.0) g/dL RDW 13.2 (11.5-15.5) % Plt Count 200 (150-450) k/uL MPV 8.5 Neutrophils % 73 % Lymphocytes % 18 % Monocytes % 6 % Eosinophils % 1 % Basophils % 0 % Neutrophils # 5.5 (1.3-7.7) k/uL Lymphocytes # 1.4 (1.0-4.8) k/uL Monocytes # 0.5 (0-1.0) k/uL Eosinophils # 0.1 (0-0.7) k/uL Basophils # 0.0 (0-0.2) k/uL PT 10.3 (9.0-12.0) sec INR 1.0 (<1.2) Sodium (137-145) mmol/L Potassium (3.5-5.1) mmol/L Chloride (98-107) mmol/L Carbon Dioxide (22-30) mmol/L Anion Gap mmol/L BUN (7-17) mg/dL Creatinine (0.52-1.04) mg/dL Est GFR (CKD-EPI)AfAm (>60 ml/min/1.73 sqM) Est GFR (CKD-EPI)NonAf (>60 ml/min/1.73 sqM) Glucose (74-99) mg/dL Plasma Lactic Acid Jorge (0.7-2.0) mmol/L Calcium (8.4-10.2) mg/dL Magnesium (1.6-2.3) mg/dL Total Bilirubin (0.2-1.3) mg/dL AST (14-36) U/L ALT (4-34) U/L Alkaline Phosphatase (38-126) U/L Total Protein (6.3-8.2) g/dL Albumin (3.5-5.0) g/dL Urine Color Urine Appearance (Clear) Urine pH (5.0-8.0) Ur Specific [place] (1.001-1.035) Urine Protein (Negative) Urine Glucose (UA) (Negative) Urine Ketones (Negative) Urine Blood (Negative) Urine Nitrite (Negative) Urine Bilirubin (Negative) Urine Urobilinogen (<2.0) mg/dL Ur Leukocyte Esterase (Negative) Salicylates mg/dL Urine Opiates Screen Not Detected (NotDetected) Ur Oxycodone Screen Not Detected (NotDetected) Urine Methadone Screen Not Detected (NotDetected) Ur Propoxyphene Screen Not Detected (NotDetected) Acetaminophen ug/mL Ur Barbiturates Screen Not Detected (NotDetected) U Tricyclic Antidepress Not Detected (NotDetected) Ur Phencyclidine Scrn Not Detected (NotDetected) Ur Amphetamines Screen Not Detected (NotDetected) U Methamphetamines Scrn Not Detected (NotDetected) U Benzodiazepines Scrn Detected H (NotDetected) Urine Cocaine Screen Not Detected (NotDetected) U Marijuana (THC) Screen Not Detected (NotDetected) Serum Alcohol mg/dL 04/18/21 04/18/21 04/18/21 Range/Units 16:00 16:00 16:00 WBC (3.8-10.6) k/uL RBC (3.80-5.40) m/uL Hgb (11.4-16.0) gm/dL Hct (34.0-46.0) % MCV (80.0-100.0) fL MCH (25.0-35.0) pg MCHC (31.0-37.0) g/dL RDW (11.5-15.5) % Plt Count (150-450) k/uL MPV Neutrophils % % Lymphocytes % % Monocytes % % Eosinophils % % Basophils % % Neutrophils # (1.3-7.7) k/uL Lymphocytes # (1.0-4.8) k/uL Monocytes # (0-1.0) k/uL Eosinophils # (0-0.7) k/uL Basophils # (0-0.2) k/uL PT (9.0-12.0) sec INR (<1.2) Sodium 142 (137-145) mmol/L Potassium 4.5 (3.5-5.1) mmol/L Chloride 112 H (98-107) mmol/L Carbon Dioxide 24 (22-30) mmol/L Anion Gap 6 mmol/L BUN 16 (7-17) mg/dL Creatinine 1.08 H (0.52-1.04) mg/dL Est GFR (CKD-EPI)AfAm 65 (>60 ml/min/1.73 sqM) Est GFR (CKD-EPI)NonAf 56 (>60 ml/min/1.73 sqM) Glucose 93 (74-99) mg/dL Plasma Lactic Acid Jorge 1.2 (0.7-2.0) mmol/L Calcium 10.0 (8.4-10.2) mg/dL Magnesium 2.1 (1.6-2.3) mg/dL Total Bilirubin 0.8 (0.2-1.3) mg/dL AST 43 H (14-36) U/L ALT 18 (4-34) U/L Alkaline Phosphatase 132 H (38-126) U/L Total Protein 6.8 (6.3-8.2) g/dL Albumin 4.2 (3.5-5.0) g/dL Urine Color Light Yellow Urine Appearance Clear (Clear) Urine pH 6.0 (5.0-8.0) Ur Specific [place] 1.011 (1.001-1.035) Urine Protein Negative (Negative) Urine Glucose (UA) Negative (Negative) Urine Ketones Negative (Negative) Urine Blood Negative (Negative) Urine Nitrite Negative (Negative) Urine Bilirubin Negative (Negative) Urine Urobilinogen <2.0 (<2.0) mg/dL Ur Leukocyte Esterase Negative (Negative) Salicylates <1.0 mg/dL Urine Opiates Screen (NotDetected) Ur Oxycodone Screen (NotDetected) Urine Methadone Screen (NotDetected) Ur Propoxyphene Screen (NotDetected) Acetaminophen <10.0 ug/mL Ur Barbiturates Screen (NotDetected) U Tricyclic Antidepress (NotDetected) Ur Phencyclidine Scrn (NotDetected) Ur Amphetamines Screen (NotDetected) U Methamphetamines Scrn (NotDetected) U Benzodiazepines Scrn (NotDetected) Urine Cocaine Screen (NotDetected) U Marijuana (THC) Screen (NotDetected) Serum Alcohol <10 mg/dL Disposition Clinical Impression: Benzodiazepine overdose, Suicide attempt, Psychiatric illness Narrative: Admitted to inpatient psychiatry Disposition: OTHER INSTITUTION NOT DEFINED Condition: Stable
[2021-04-19] MEDS: LEVOTHYROXINE 50 MCG TAB PO SCH (06:33)
[2021-04-19 06:57] VITALS: RESP 16
[2021-04-19] MEDS: SYMBICORT 160-4.5 MCG INHALER (MHU) INHALATION SCH ×3 (08:44→21:47)
[2021-04-19] MEDS: LURASIDONE 40 MG TAB PO SCH ×2 (08:45→13:11)
[2021-04-19] MEDS: busPIRone HCl 10 MG TAB PO SCH ×3 (08:45→21:47)
[2021-04-19] MEDS: PANTOPRAZOLE 40 MG TABLET PO SCH ×3 (08:45→16:35)
[2021-04-19] MEDS: SUCRALFATE 1 GM TAB PO SCH ×4 (08:45→21:49)
[2021-04-19] MEDS ORDERED: VENLAFAXINE HCL ER 37.5 MG CAP PO SCH (09:00)
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
[2021-04-19 10:57] LABS: HCT 44.5 % (34.0-46.0); HGB 15.8 gm/dL (11.4-16.0); MCH 32.2 pg (25.0-35.0); MCHC 35.4 g/dL (31.0-37.0); MCV 90.9 fL (80.0-100.0); Mean Platelet Volume 6.7; Platelet Count 267 k/uL (150-450); RBC 4.89 m/uL (3.80-5.40); RDW 13.1 % (11.5-15.5)
[2021-04-19] MEDS: HALOPERIDOL LACTATE 5 MG/ML 1 ML VIAL IM PRN ×2 (11:00→20:19)
[2021-04-19 11:21] LABS: Albumin 4.5 g/dL (3.5-5.0); Calcium 10.7 mg/dL (8.4-10.2); Potassium 4.4 mmol/L (3.5-5.1); Total Bilirubin 0.6 mg/dL (0.2-1.3); Total Protein 7.3 g/dL (6.3-8.2)
[2021-04-19 12:49] LABS: Hemoglobin A1C 4.5 % (4.0-6.0)
[2021-04-19] MEDS: NICOTINE 14MG/24HR PATCH TRANSDERM SCH (13:07)
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
[2021-04-19] MEDS: PRAZOSIN 1 MG CAP PO SCH (21:47)
[2021-04-20] MEDS: LEVOTHYROXINE 50 MCG TAB PO SCH (07:02)
[2021-04-20] MEDS: NICOTINE 14MG/24HR PATCH TRANSDERM SCH ×2 (08:30→08:51)
[2021-04-20] MEDS: LURASIDONE 40 MG TAB PO SCH ×3 (08:30→17:48)
[2021-04-20] MEDS: PANTOPRAZOLE 40 MG TABLET PO SCH ×2 (08:31→15:49)
[2021-04-20] MEDS: SUCRALFATE 1 GM TAB PO SCH ×4 (08:31→20:39)
[2021-04-20] MEDS: busPIRone HCl 10 MG TAB PO SCH ×2 (08:31→20:37)
[2021-04-20] MEDS: MULTIVITAMINS, THERA 1 EACH TAB PO SCH (08:31)
[2021-04-20] MEDS: THIAMINE 100 MG TAB PO SCH (08:31)
[2021-04-20] MEDS: SYMBICORT 160-4.5 MCG INHALER (MHU) INHALATION SCH ×3 (08:31→20:37)
[2021-04-20] MEDS ORDERED: VENLAFAXINE HCL ER 75 MG CAP PO SCH (09:00)
[2021-04-20] MEDS: HALOPERIDOL LACTATE 5 MG/ML 1 ML VIAL IM PRN (11:38)
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
[2021-04-20] MEDS: chlordiazePOXIDE 25 MG CAP PO SCH ×2 (16:38→21:26)
[2021-04-20] MEDS: ACETAMINOPHEN TAB 325 MG TAB PO PRN (18:39)
[2021-04-20] MEDS: PRAZOSIN 1 MG CAP PO SCH (20:38)
[2021-04-21] MEDS: LEVOTHYROXINE 50 MCG TAB PO SCH (06:10)
[2021-04-21] MEDS: PANTOPRAZOLE 40 MG TABLET PO SCH ×2 (08:11→17:31)
[2021-04-21] MEDS: NICOTINE 14MG/24HR PATCH TRANSDERM SCH ×3 (08:11→17:31)
[2021-04-21] MEDS: busPIRone HCl 10 MG TAB PO SCH ×2 (08:11→21:41)
[2021-04-21] MEDS: SUCRALFATE 1 GM TAB PO SCH ×4 (08:11→21:41)
[2021-04-21] MEDS: SYMBICORT 160-4.5 MCG INHALER (MHU) INHALATION SCH ×2 (08:12→21:42)
[2021-04-21] MEDS: VENLAFAXINE HCL ER 150 MG CAP PO SCH (08:12)
[2021-04-21] MEDS: chlordiazePOXIDE 25 MG CAP PO SCH ×4 (08:12→21:42)
[2021-04-21] MEDS: MULTIVITAMINS, THERA 1 EACH TAB PO SCH (08:12)
[2021-04-21] MEDS: THIAMINE 100 MG TAB PO SCH (08:14)
--- NOTE | 2021-04-21 09:58 | P.PN ---
Progress Note - Text Progress Note Date: 04/21/21 S&O: Patient was seen for a follow-up examination. She appears a lot calmer and more relaxed today. She said the child welfare social worker is trying to contact her family members to help her cat. When I told her that she looks calmer and more relaxed today she started to say that she does not know what to do since she cannot contact her family and started to sob a little. Even though she looks calmer she has some slurred speech and gets somewhat unsteady on her feet. She was advised to go back to her room and rest under one-to-one supervision. She readily agreed. This is a right ambulatory female with adequate hygiene. She appears to be somewhat unsteady on her feet and has somewhat slurred speech. She appears more relaxed and calmer today. She denies hallucinations delusional thinking suicide and homicide thoughts. Her cognitive functions are fairly intact. P: Continue current medications supervision and stabilize her mood. She needs continued care to stabilize her mood in the hospital setting. Continue groups and other therapies. Refer to neurology guarding her slurred speech and rather unsteady gait.
[2021-04-21] MEDS: LURASIDONE 40 MG TAB PO SCH (17:31)
[2021-04-21] MEDS: PRAZOSIN 1 MG CAP PO SCH (21:41)
[2021-04-22] MEDS: LEVOTHYROXINE 50 MCG TAB PO SCH (06:46)
[2021-04-22 07:14] VITALS: TEMP 97.5
[2021-04-22] MEDS: SYMBICORT 160-4.5 MCG INHALER (MHU) INHALATION SCH ×2 (08:06→21:11)
[2021-04-22] MEDS: NICOTINE 14MG/24HR PATCH TRANSDERM SCH (08:06)
[2021-04-22] MEDS: busPIRone HCl 10 MG TAB PO SCH ×3 (08:06→21:13)
[2021-04-22] MEDS: SUCRALFATE 1 GM TAB PO SCH ×4 (08:06→21:12)
[2021-04-22] MEDS: VENLAFAXINE HCL ER 150 MG CAP PO SCH (08:06)
[2021-04-22] MEDS: PANTOPRAZOLE 40 MG TABLET PO SCH ×2 (08:06→17:37)
[2021-04-22] MEDS: THIAMINE 100 MG TAB PO SCH (08:06)
[2021-04-22] MEDS: MULTIVITAMINS, THERA 1 EACH TAB PO SCH (08:06)
[2021-04-22] MEDS: chlordiazePOXIDE 25 MG CAP PO SCH ×3 (08:06→21:13)
--- NOTE | 2021-04-22 10:26 | P.PN ---
Progress Note - Text Progress Note Date: 04/22/21 Interval History: Patient was seen wandering the hallways and was directable and agreeable to speak with specifications writer in the office. The patient is currently on one-to-one supervision. Upon evaluation, the patient is reporting that she is feeling better than she was on Thursday. She does report that she did smash both of her hands on Thursday after being very upset, thinking about how her took all the money from her. She continues to report elevated anxiety. She states that she is constantly worried about her plans after discharge and the situation with her and her missing money. She does report that she was able to speak with her mother and sister last night and this morning. She reports that they are helping her with her cat and with her plans for discharge. The patient does report that she met with the litigation attorney associate this morning and deferred. She is currently not reporting any suicidal or homicidal ideation, intention, and/or plan. She is denying any auditory or visual hallucinations. She denies any paranoia or other delusions. The patient does endorse that she has a low appetite. She does express that she feels some sedation from her medications. She continues to report some mild tremors secondary to alcohol withdrawal. The patient reports that she is not interested in going to alcohol rehab but instead would prefer to follow-up with her plans for outpatient follow-up. Mental Status Exam: General Appearance: Patient appears to be stated age is alert, directable, and cooperative. Behavior: Patient is calmly seated without any agitated behavior. Gait appears steady and normal. Speech: Patient's speech is fluent and nonpressured. Spontaneous, with normal rate, tone, and volume. Mood/Affect: Mood is improving mildly, affect is congruent and slightly irritable. Suicidality/Homicidality: Patient denies having any suicidal or homicidal ideation intent or plan. Perceptions: Patient denies any visual hallucinations and denies any auditory hallucinations Though content/process: There is no evidence of any delusional thought content and thought process is linear and goal-directed. Memory and concentration: AOX3, grossly intact for the purposes of this session Judgment and insight: Improving mildly Vital Signs Temp 97.5 F L 04/22/21 06:50 Pulse 92 04/22/21 08:08 Resp 16 04/22/21 06:50 BP 103/59 04/22/21 08:08 Pulse Ox 100 04/19/21 00:18 Assessment Bipolar disorder, depressed episode, without psychotic features Rule out posttraumatic stress disorder Alcohol use disorder Benzodiazepine use disorder Nicotine dependence Plan: -Patient continues to meet criteria for inpatient psychiatric admission for symptom stabilization and safety. Patient reports that she deferred today. -CIWA score of 6 this am -Discontinue one-to-one sitter -Medications: Increase BuSpar to 20 mg 3 times a day for anxiety Continue Librium 25 mg by mouth 3 times a day for alcohol withdrawal Continue Latuda 40 mg by mouth daily for mood stabilization Continue prazosin 3 mg by mouth at bedtime for PTSD related nightmares Continue Effexor XR 150 mg by mouth daily for depression/anxiety/PTSD -When necessary Ativan and Haldol for agitation/aggression. -NRT - nicotine patch -SW on board for discharge planning. Encouraged the patient to participate in milieu.
[2021-04-22] MEDS: ACETAMINOPHEN TAB 325 MG TAB PO PRN (10:54)
[2021-04-22] MEDS: LURASIDONE 40 MG TAB PO SCH (17:38)
[2021-04-22] MEDS ORDERED: chlordiazePOXIDE 25 MG CAP PO SCH (21:00)
[2021-04-22] MEDS: PRAZOSIN 1 MG CAP PO SCH (21:12)
[2021-04-23] MEDS: LEVOTHYROXINE 50 MCG TAB PO SCH (06:16)
[2021-04-23] MEDS: NICOTINE 14MG/24HR PATCH TRANSDERM SCH (07:48)
[2021-04-23] MEDS: VENLAFAXINE HCL ER 150 MG CAP PO SCH (07:48)
[2021-04-23] MEDS: THIAMINE 100 MG TAB PO SCH (07:48)
[2021-04-23] MEDS: chlordiazePOXIDE 25 MG CAP PO SCH ×2 (07:48→21:12)
[2021-04-23] MEDS: busPIRone HCl 10 MG TAB PO SCH ×3 (07:48→21:12)
[2021-04-23] MEDS: PANTOPRAZOLE 40 MG TABLET PO SCH ×2 (07:48→17:31)
[2021-04-23] MEDS: SUCRALFATE 1 GM TAB PO SCH ×4 (07:49→21:12)
[2021-04-23] MEDS: MULTIVITAMINS, THERA 1 EACH TAB PO SCH (07:50)
[2021-04-23] MEDS: SYMBICORT 160-4.5 MCG INHALER (MHU) INHALATION SCH ×2 (09:50→21:13)
--- NOTE | 2021-04-23 10:27 | P.PN ---
Progress Note - Text Progress Note Date: 04/23/21 Interval History: Patient was seen wandering the hallways and was directable and agreeable to s peak with insurance writer in the office. Patient reports that she is feeling better today. She is currently not reporting any suicidal or homicidal ideation, intention, and/or plan. She states that she has enlisted the services of a production operator to help obtain her funds from her . She is future oriented. She reports that she was able to sleep very well last night. She does report that her appetite appears to be somewhat low due to some GI disturbances but states that this is tolerable at this time. She is not reporting any auditory or visual hallucinations. She denies any paranoia or other delusions. The patient does express that she is experiencing some increased involuntary movements in her perioral area. She was informed that Latuda may cause the side effect and that we may go down on the medication to help but she prefers to stay on the medication. She states that she will discuss her outpatient provider other medication options. Mental Status Exam: General Appearance: Patient appears to be stated age is alert, directable, and cooperative. Behavior: Patient is calmly seated without any agitated behavior. Gait appears steady and normal. Speech: Patient's speech is fluent and nonpressured. Spontaneous, with normal rate, tone, and volume. Mood/Affect: Mood is improving mildly, affect is congruent and constricted. Suicidality/Homicidality: Patient denies having any suicidal or homicidal ideation intent or plan. Perceptions: Patient denies any visual hallucinations and denies any auditory hallucinations Though content/process: There is no evidence of any delusional thought content and thought process is linear and goal-directed. Memory and concentration: AOX3, grossly intact for the purposes of this session Judgment and insight: Improving mildly Vital Signs Temp 97.5 F L 04/23/21 06:24 Pulse 78 04/23/21 06:24 Resp 16 04/23/21 06:24 BP 119/55 04/23/21 06:24 Pulse Ox 100 04/19/21 00:18 Assessment Bipolar disorder, depressed episode, without psychotic features Rule out posttraumatic stress disorder Alcohol use disorder Benzodiazepine use disorder Nicotine dependence Plan: -Patient continues to meet criteria for inpatient psychiatric admission for symptom stabilization and safety. Patient deferred mental health court yesterday. -Anticipate discharge tomorrow. -Medications: Continue BuSpar to 20 mg 3 times a day for anxiety Decrease Librium to 25 mg by mouth 2 times a day for alcohol withdrawal Continue Latuda 40 mg by mouth daily for mood stabilization Continue prazosin 3 mg by mouth at bedtime for PTSD related nightmares Continue Effexor XR 150 mg by mouth daily for depression/anxiety/PTSD -When necessary Ativan and Haldol for agitation/aggression. -NRT - nicotine patch -SW on board for discharge planning. Encouraged the patient to participate in milieu.
[2021-04-23] MEDS: LURASIDONE 40 MG TAB PO SCH (17:31)
[2021-04-23] MEDS: PRAZOSIN 1 MG CAP PO SCH (21:13)
[2021-04-24] MEDS: LEVOTHYROXINE 50 MCG TAB PO SCH (06:35)
[2021-04-24 07:03] VITALS: BP 101/58; PULSE 63
[2021-04-24] MEDS: MULTIVITAMINS, THERA 1 EACH TAB PO SCH (08:00)
[2021-04-24] MEDS: SUCRALFATE 1 GM TAB PO SCH ×2 (08:00→12:42)
[2021-04-24] MEDS: NICOTINE 14MG/24HR PATCH TRANSDERM SCH (08:00)
[2021-04-24] MEDS: busPIRone HCl 10 MG TAB PO SCH (08:00)
[2021-04-24] MEDS: THIAMINE 100 MG TAB PO SCH (08:00)
[2021-04-24] MEDS: SYMBICORT 160-4.5 MCG INHALER (MHU) INHALATION SCH (08:01)
[2021-04-24] MEDS: VENLAFAXINE HCL ER 150 MG CAP PO SCH (08:01)
[2021-04-24] MEDS: PANTOPRAZOLE 40 MG TABLET PO SCH (08:01)
[2021-04-24] MEDS: chlordiazePOXIDE 25 MG CAP PO SCH (08:02)
--- NOTE | 2021-04-24 11:26 | P.DS ---
Providers Date of admission: 04/18/21 22:49 Expected date of discharge: 04/24/21 Attending physician: Alex Jarrell MD Consults: 04/18/21 22:52 Consult Physician Routine Consulting Provider: Angel Ansari Consult Reason/Comments: History and physical Do you want consulting provider notified?: Yes, Notify in am Primary care physician: Angel Ansari - Discharge Diagnosis(es) (1) Bipolar 1 disorder Current Visit: Yes Status: Chronic Priority: High (2) PTSD (post-traumatic stress disorder) Current Visit: Yes Status: Chronic Priority: Medium (3) Alcohol use disorder Current Visit: Yes Status: Chronic Priority: Medium (4) Moderate benzodiazepine use disorder Current Visit: Yes Status: Chronic Priority: Medium (5) Nicotine dependence Current Visit: Yes Status: Chronic Priority: Medium Hospital Course: Admission HPI: Patient is a 61-year-old, , female, on SSD, significant history of bipolar disorder and alcohol use disorder, admitted for intentional overdose on Klonopin and alcohol. Patient presented to the hospital on 04/18/21, brought in by police under a petition by the patient's case finisher. As per petition, the patient intentionally overdosed and endorses significant suicidal statements indicating a strong desire to end her life. Furthermore, the patient has been increasing her alcohol use and using unprescribed benzodiazepine medications. She reported the suicidal statements to the mobile crisis unit and the police have been sent her home and brought her to the hospital. When evaluated on the unit, the patient is quite dysphoric and continues to endorse significant symptoms of depression and suicidal ideation. The patient reports that she overdosed at approximately 5 PM yesterday on an old benzodiazepine medication and alcohol. As per EPS report, the patient did express that she did not want to be admitted to the psychiatric unit and that if she was to go home, she would call her drug dealer and get opiates and overdose on them. The patient expresses that her primary stressor is her relationship with her . She reports that she had to take care of her when he was intoxicated and fell causing her to clean up "the blood and mess he left on the kitchen floor." Furthermore, she expresses that her took all of the money out of their joint account and disappeared. The patient was most recently admitted to the psychiatric unit this past March for a similar presentation when she overdosed on Klonopin. The patient does have a previous diagnosis of bipolar disorder and history of manic episodes but is currently not endorsing any at this time. She does report a history of severe mood swings, mood lability, excessive energy, and impulsivity. The patient has also endorsed a significant history of psychotic symptoms including auditory hallucinations which she last experienced this past October. She reported that these auditory hallucinations which tell her to hurt herself and occasionally tell her to hurt others. The patient does admit to significant alcohol use. She reports that she has been drinking a half pint to a pint of jh a day as well as using illicit benzodiazepine medications. The patient reports the longest that she has been sober was for 6 months during which time she attended meetings. She reports that she is currently not open to any. She states that she went to rehab once before but could not recall when. Furthermore, the patient does report one pack per day of tobacco use. As the patient was visibly upset and elevated during the interview, no further history could be obtained. The patient has previous diagnosis of bipolar disorder. She has had numerous inpatient psychiatric admissions with the last one being on this psychiatric unit this past March. The patient is currently open with [facility]. Previous psychotropic medications include Lamictal, clonidine, BuSpar, and her home medications which included Effexor, Latuda, prazosin, and BuSpar. The patient has had multiple attempts at suicide in the past by overdose. Hospital course: Upon admission to the unit patient was initially presenting as tearful, upset, and endorsing significant suicidal ideation. She also appeared to be quite intoxicated and dysarthric in her words. Patient was however directable and agreeable to commence treatment. The patient was started on Librium for alcohol use disorder and benzodiazepine use disorder. She was restarted on her home medications of BuSpar and Latuda. Her Effexor was also increased to manage her depression/anxiety/PTSD. Over the weekend, the patient did have an outburst during which she ended up slamming her hands. She also appeared to be unsteady on her feet and was placed on a one-to-one supervision on the unit. Gradually, the patient improved in regards to her balance and gait and displayed significant control of emotions and one-to-one supervision was discontinued. Over the course of the hospitalization, the patient's Librium was gradually tapered while her Effexor and BuSpar were increased for management of depression and anxiety. The patient displayed significant improvement in regards to her depression, anxiety, and future orientation. She expresses strong desire to live for herself and her family. Furthermore, the patient expressed that she was future oriented as she was retaining a setter [employer] to get back her money from her . The patient tolerated her medications well and reported no significant side effects aside from mild perioral movements from her Latuda. The patient stated that she did not want to decrease her Latuda and would follow up with her outpatient provider regarding this problem. On the day of discharge, the patient is not reporting any suicidal or homicidal ideation, intention, and/or plan. She is not reporting any auditory or visual hallucinations. She denies any access to firearms or other weapons. She reports no paranoia or other delusions. The patient has been adherent to medications is not endorsing any significant side effects at this time. Patient does express concern for her withdrawal as she has been on benzodiazepines and alcohol for quite some time. She understands that she'll be discharged with a short 3 day supply of Librium and was counseled at length not to mix this medication with alcohol as it may cause her to be disoriented, express falls, and even risk . The patient acknowledges this. Furthermore, this provider has left a message on the [employer] system regarding the practice of prescribing benzodiazepines for this patient as she has overdosed on klonopin multiple times. The patient was counseled on length on her medications and the importance for outpatient follow-up. The patient does have a significant history of substance abuse and was counseled at great length on avoiding all substances including benzodiazepines, alcohol, and other illicit drugs. Prior to discharge, a family meeting will be arranged by the social media assistant to answer any questions and ensure safety. Mental status exam: General Appearance: Patient appears to be stated age is alert, pleasant, and cooperative. Patient is in no acute distress and has fair hygiene and grooming Behavior: Patient is calmly seated without any agitated behavior. Eye contact is appropriate. Psychomotor activity is normal. Speech: Patient's speech is fluent and nonpressured. Spontaneous, normal rate, tone, and volume. Mood/Affect: Patient reports their mood is "much better", affect is congruent and euthymic to bright. Suicidality/Homicidality: Patient denies having any suicidal or homicidal ideation intent or plan. Perceptions: Patient denies any auditory or visual hallucinations. Though content/process: There is no evidence of any delusional thought content and thought process is linear and goal-directed. Patient is future oriented. Memory and concentration: AOX3, grossly intact for the purposes of this session. Can spell "WORLD" backwards correctly. Judgment and insight: Improved with guarded prognosis Vital Signs Temp 97.5 F L 04/24/21 06:38 Pulse 63 04/24/21 06:38 Resp 16 04/24/21 06:38 BP 101/58 04/24/21 06:38 Pulse Ox 100 04/23/21 21:10 Impression: Bipolar disorder, depressed episode, without psychotic features Posttraumatic stress disorder Alcohol use disorder Benzodiazepine use disorder Nicotine dependence Plan: -Continue with discharge today as patient has improved and stabilized psychiatrically and is not currently an imminent threat to herself and/or others. Patient will remain at chronically elevated risk for harm to self and/or others due to her impulsivity and polysubstance abuse. -Continue medications: Effexor XR 150 mg by mouth daily for depression/anxiety Latuda 40 mg by mouth daily for mood stabilization/psychosis Prazosin 3 mg by mouth at bedtime for PTSD related nightmares BuSpar 20 mg by mouth 3 times a day for anxiety Librium 25 mg by mouth twice a day, patient to be provided with 5 caps only to last for 3 Days for alcohol/benzodiazepine withdrawal. -Patient was counseled on the need for medication compliance and appropriate follow-up at mental health and also primary care for medical issues. Patient verbalized understanding and agreed. -Social work to arrange for and conduct family meeting to ensure safety upon discharge and answer any questions/concerns. Social work also to arrange for patients follow up appointments with [facility] for psychiatric care along with follow up with primary care provider. -Patient counseled on abstaining from recreational drugs and marijuana and alcohol. Was informed/educated on the adverse effects on their physical and mental health. Patient verbally agreed and understood. Patient was offered substance abuse treatment however declined at this time. -This provider left a message on the [employer] system to ensure safe prescribing practices, in particular to inform her PCP to stop prescribing klonopin as the patient overdosed twice on this medication. -Patient was instructed to return to the hospital or seek immediate medical care if their psychiatric or medical symptoms do worsen or reoccur. -Psychoeducation and supportive therapy provided to patient. Risks and benefits of pharmacological treatment versus the risks and benefits of nontreatment weight and discussed. Informed consent discussion held. Common side effects of psychotropics discussed such as, but not limited to headache, GI disturbance, sexual dysfunction, movement disorders, sedation, and orthostatic hypotension. Life threatening and blackbox warnings of prescribed medications also discussed. Potential risks of operating a vehicle or heavy machinery discussed with patient at length. Advised on importance of compliance and a reliable and responsible manner. Patient advised to review FDA consumer labeling of all medications prior to taking. Patient verbalized understanding of potential risks, and agrees with current treatment plan. Patient advised to medically contact physician/emergency personnel if any acute changes in condition occur. Laboratory Results WBC 7.0 k/uL (3.8-10.6) 04/19/21 10:27 RBC 4.89 m/uL (3.80-5.40) 04/19/21 10:27 Hgb 15.8 gm/dL (11.4-16.0) 04/19/21 10:27 Hct 44.5 % (34.0-46.0) 04/19/21 10:27 MCV 90.9 fL (80.0-100.0) 04/19/21 10:27 MCH 32.2 pg (25.0-35.0) 04/19/21 10:27 MCHC 35.4 g/dL (31.0-37.0) 04/19/21 10:27 RDW 13.1 % (11.5-15.5) 04/19/21 10:27 Plt Count 267 k/uL (150-450) 04/19/21 10:27 MPV 6.7 04/19/21 10:27 Neutrophils % 73 % 04/18/21 16:00 Lymphocytes % 18 % 04/18/21 16:00 Monocytes % 6 % 04/18/21 16:00 Eosinophils % 1 % 04/18/21 16:00 Basophils % 0 % 04/18/21 16:00 Neutrophils # 5.5 k/uL (1.3-7.7) 04/18/21 16:00 Lymphocytes # 1.4 k/uL (1.0-4.8) 04/18/21 16:00 Monocytes # 0.5 k/uL (0-1.0) 04/18/21 16:00 Eosinophils # 0.1 k/uL (0-0.7) 04/18/21 16:00 Basophils # 0.0 k/uL (0-0.2) 04/18/21 16:00 PT 10.3 sec (9.0-12.0) 04/18/21 16:00 INR 1.0 (<1.2) 04/18/21 16:00 Sodium 143 mmol/L (137-145) 04/19/21 10:27 Potassium 4.4 mmol/L (3.5-5.1) 04/19/21 10:27 Chloride 111 mmol/L (98-107) H 04/19/21 10:27 Carbon Dioxide 24 mmol/L (22-30) 04/19/21 10:27 Anion Gap 8 mmol/L 04/19/21 10:27 BUN 17 mg/dL (7-17) 04/19/21 10:27 Creatinine 1.08 mg/dL (0.52-1.04) H 04/19/21 10:27 Est GFR (CKD-EPI)AfAm 65 (>60 ml/min/1.73 sqM) 04/19/21 10:27 Est GFR (CKD-EPI)NonAf 56 (>60 ml/min/1.73 sqM) 04/19/21 10:27 Glucose 96 mg/dL (74-99) 04/19/21 10:[address] Glu mg/dL 82 04/18/21 16:00 Hemoglobin A1c 4.5 % (4.0-6.0) 04/18/21 16:00 Plasma Lactic Acid Jorge 1.2 mmol/L (0.7-2.0) 04/18/21 16:00 Calcium 10.7 mg/dL (8.4-10.2) H 04/19/21 10:27 Magnesium 2.1 mg/dL (1.6-2.3) 04/18/21 16:00 Total Bilirubin 0.6 mg/dL (0.2-1.3) 04/19/21 10:27 AST 33 U/L (14-36) 04/19/21 10:27 ALT 22 U/L (4-34) 04/19/21 10:27 Alkaline Phosphatase 153 U/L (38-126) H 04/19/21 10:27 Total Protein 7.3 g/dL (6.3-8.2) 04/19/21 10:27 Albumin 4.5 g/dL (3.5-5.0) 04/19/21 10:27 TSH 0.321 mIU/L (0.465-4.680) L 04/18/21 16:00 Urine Color Light Yellow 04/18/21 16:00 Urine Appearance Clear (Clear) 04/18/21 16:00 Urine pH 6.0 (5.0-8.0) 04/18/21 16:00 Ur Specific [place] 1.011 (1.001-1.035) 04/18/21 16:00 Urine Protein Negative (Negative) 04/18/21 16:00 Urine Glucose (UA) Negative (Negative) 04/18/21 16:00 Urine Ketones Negative (Negative) 04/18/21 16:00 Urine Blood Negative (Negative) 04/18/21 16:00 Urine Nitrite Negative (Negative) 04/18/21 16:00 Urine Bilirubin Negative (Negative) 04/18/21 16:00 Urine Urobilinogen <2.0 mg/dL (<2.0) 04/18/21 16:00 Ur Leukocyte Esterase Negative (Negative) 04/18/21 16:00 Salicylates <1.0 mg/dL 04/18/21 16:00 Urine Opiates Screen Not Detected (NotDetected) 04/18/21 16:00 Ur Oxycodone Screen Not Detected (NotDetected) 04/18/21 16:00 Urine Methadone Screen Not Detected (NotDetected) 04/18/21 16:00 Ur Propoxyphene Screen Not Detected (NotDetected) 04/18/21 16:00 Acetaminophen <10.0 ug/mL 04/18/21 16:00 Ur Barbiturates Screen Not Detected (NotDetected) 04/18/21 16:00 U Tricyclic Antidepress Not Detected (NotDetected) 04/18/21 16:00 Ur Phencyclidine Scrn Not Detected (NotDetected) 04/18/21 16:00 Ur Amphetamines Screen Not Detected (NotDetected) 04/18/21 16:00 U Methamphetamines Scrn Not Detected (NotDetected) 04/18/21 16:00 U Benzodiazepines Scrn Detected (NotDetected) H 04/18/21 16:00 Urine Cocaine Screen Not Detected (NotDetected) 04/18/21 16:00 U Marijuana (THC) Screen Not Detected (NotDetected) 04/18/21 16:00 Serum Alcohol <10 mg/dL 04/18/21 16:00 Allergies Allergy/AdvReac Type Severity Reaction Status Date / Time No Known Allergies Allergy Verified 04/18/21 23:35 Patient Condition at Discharge: Stable Plan - Discharge Summary Discharge Rx Participant: No New Discharge Prescriptions: New Venlafaxine HCl ER [Effexor XR] 150 mg PO DAILY 30 Days cap.er.24h Lurasidone [Latuda] 40 mg PO DAILY@1730 30 Days tab Prazosin [Minipress] 3 mg PO HS 30 Days cap Levothyroxine Sodium [Synthroid] 50 mcg PO DAILY@0630 30 Days tab busPIRone HCl [Buspar] 20 mg PO TID 30 Days tab Nicotine 14Mg/24Hr Patch [Habitrol] 1 patch TRANSDERM DAILY 30 Days patch chlordiazePOXIDE HCl [Librium] 25 mg PO BID 3 Days #5 cap hydrOXYzine pamoate [Vistaril] 100 mg PO HS PRN 30 Days cap PRN Reason: sleep/anxiety Continue Pantoprazole Sodium [Protonix] 40 mg PO BID Ipratropium-Albuterol Nebulize [Duoneb 0.5 mg-3 mg/3 ml Soln] 3 ml INHALATION RT-QID PRN 14 Days ml PRN Reason: Shortness Of Breath Or Wheezing Budesonide-Formot 160-4.5 Mcg [Symbicort 160-4.5 Mcg Inhaler] 2 puff INHALATION RT-BID 14 Days puff Sucralfate [Carafate] 1 gm PO ACHS Discontinued busPIRone HCl [Buspar] 20 mg PO BID 30 Days tab Lurasidone [Latuda] 40 mg PO DAILY 30 Days tab Levothyroxine Sodium [Synthroid] 50 mcg PO DAILY@0630 30 Days tab hydrOXYzine pamoate [hydrOXYzine PAMOATE] 100 mg PO HS PRN PRN Reason: sleep/anxiety Venlafaxine HCl ER [Effexor XR] 37.5 mg PO DAILY 30 Days cap.er.24h lamoTRIgine [LaMICtal] 50 mg PO BID 30 Days tab Prazosin [Minipress] 3 mg PO HS 30 Days cap Discharge Medication List Pantoprazole Sodium [Protonix] 40 mg PO BID 05/02/19 [History] Sucralfate [Carafate] 1 gm PO ACHS 02/04/21 [History] Budesonide-Formot 160-4.5 Mcg [Symbicort 160-4.5 Mcg Inhaler] 2 puff INHALATION RT-BID 14 Days puff 03/20/21 [Rx] Ipratropium-Albuterol Nebulize [Duoneb 0.5 mg-3 mg/3 ml Soln] 3 ml INHALATION RT-QID PRN 14 Days ml 03/20/21 [Rx] Levothyroxine Sodium [Synthroid] 50 mcg PO DAILY@0630 30 Days tab 04/24/21 [Rx] Lurasidone [Latuda] 40 mg PO DAILY@1730 30 Days tab 04/24/21 [Rx] Nicotine 14Mg/24Hr Patch [Habitrol] 1 patch TRANSDERM DAILY 30 Days patch 04/24/21 [Rx] Prazosin [Minipress] 3 mg PO HS 30 Days cap 04/24/21 [Rx] Venlafaxine HCl ER [Effexor XR] 150 mg PO DAILY 30 Days cap.er.24h 04/24/21 [Rx] busPIRone HCl [Buspar] 20 mg PO TID 30 Days tab 04/24/21 [Rx] chlordiazePOXIDE HCl [Librium] 25 mg PO BID 3 Days #5 cap 04/24/21 [Rx] hydrOXYzine pamoate [Vistaril] 100 mg PO HS PRN 30 Days cap 04/24/21 [Rx] Follow up Appointment(s)/Referral(s): [facility] [Outside] - 04/24/21 3:30 pm (04-24-21 @ 3:30 with Nurse Kat Suresh for [facility] box 04-26-21 @ 1:30 with OSBALDO Rodriguez [address] [facility] office 04-29-21 @ 3:00 with Kristina Calvin by phone) Angel Ansari MD [Primary Care Provider] - 1-2 days Activity/Diet/Wound Care/Special Instructions: Activity and diet as tolerated. Avoid the use of street drugs and alcohol. Take all medications as prescribed. When you are in need of refills on your medications please contact your medical provider and/or outpatient psychiatrist to have this done. Please go to scheduled outpatient appointment for aftercare treatment. If symptoms return or become worse, call the crisis line at and/or go to the nearest emergency room for evaluation.
== END 2021-04-24 14:35 | disposition home or self-care (01) | DRG 918 ==
LOC: EC 14:09 → 3MHU 22:49
PROVIDERS: ADMIT Psychiatry & Neurology Psychiatry; ATTEND Psychiatry & Neurology Psychiatry
DX: T42.4X2A Poisoning by benzodiazepines, intentional self-harm, initial encounter (principal); R45.851 Suicidal ideations; F13.239 Sedative, hypnotic or anxiolytic dependence with withdrawal, unspecified; F10.239 Alcohol dependence with withdrawal, unspecified; T51.92XA Toxic effect of unspecified alcohol, intentional self-harm, initial encounter; Z79.890 Hormone replacement therapy; Z79.51 Long term (current) use of inhaled steroids; J44.9 Chronic obstructive pulmonary disease, unspecified; Z90.49 Acquired absence of other specified parts of digestive tract; F31.9 Bipolar disorder, unspecified; Z82.49 Family history of ischemic heart disease and other diseases of the circulatory system; F17.200 Nicotine dependence, unspecified, uncomplicated; Z90.710 Acquired absence of both cervix and uterus; F41.9 Anxiety disorder, unspecified; K21.9 Gastro-esophageal reflux disease without esophagitis; E03.9 Hypothyroidism, unspecified; F43.10 Post-traumatic stress disorder, unspecified; Z71.51 Drug abuse counseling and surveillance of drug abuser; Z79.899 Other long term (current) drug therapy; Z56.0 Unemployment, unspecified; F11.10 Opioid abuse, uncomplicated
CPT/HCPCS: 36415; 70450; 80053; 80143; 80179; 80306; 80320; 81003; 82075; 83036; 83605; 83735; 84443; 85025; 85027; 85610; 93005; 96360; 99285

== ENCOUNTER 2021-07-05 20:56 | Inpatient (IN) | payer MEDICARE ==
--- NOTE | 2021-07-05 22:00 | ED ---
Overdose HPI - General Chief Complaint: Overdose Stated Complaint: Overdose Time Seen by Provider: 07/05/21 21:29 Source: patient, police, EMS, RN notes reviewed, old records reviewed Mode of arrival: EMS Limitations: no limitations - History of Present Illness Initial Comments: This is a 7-year-old female to the ER for evaluation today. Patient took an overdose and attempted suicide. Patient's overdose was not severe because patient is only allotted surgery Medications today which are less than toxic levels of all medications as well as all medications combined. Patient is suicidal with significant medical history of psychiatric illness. Patient is a poor historian currently and not participating history of present illness MD Complaint: intentional overdose -: minutes(s) Intent: want to go to sleep, want to escape How Overdose Was Discovered: called counselor Context: Accidental Overdose: uncertain what happened Associated Symptoms: depression Treatments Prior to Arrival: none - Related Data Home Medications Medication Instructions Recorded Confirmed Pantoprazole Sodium [Protonix] 40 mg PO BID 05/02/19 07/05/21 Sucralfate [Carafate] 1 gm PO AC-BID 02/04/21 07/05/21 Benztropine Mesylate [Cogentin] 0.5 mg PO BID 07/05/21 07/05/21 Gabapentin 600 mg PO Q8H 07/05/21 07/05/21 Levothyroxine Sodium [Synthroid] 50 mcg PO DAILY 07/05/21 07/05/21 Lurasidone [Latuda] 40 mg PO DAILY 07/05/21 07/05/21 Venlafaxine HCl ER [Effexor XR] 150 mg PO HS 07/05/21 07/05/21 busPIRone HCL 15 mg PO BID 07/05/21 07/05/21 rOPINIRole HCL [Requip] 0.5 mg PO HS 07/05/21 07/05/21 Previous Rx's Medication Instructions Recorded Ipratropium-Albuterol Nebulize 3 ml INHALATION RT-QID PRN 14 Days 03/20/21 [Duoneb 0.5 mg-3 mg/3 ml Soln] ml Prazosin [Minipress] 3 mg PO HS 30 Days cap 04/24/21 Allergies Allergy/AdvReac Type Severity Reaction Status Date / Time No Known Allergies Allergy Verified 07/05/21 23:26 Review of Systems ROS Statement: Those systems with pertinent positive or pertinent negative responses have been documented in the HPI. ROS Other: All systems not noted in ROS Statement are negative. Past Medical History Past Medical History: COPD, Renal Disease, Thyroid Disorder Additional Past Medical History / Comment(s): cysts on (R) kidney. History of Any Multi-Drug Resistant Organisms: None Reported Past Surgical History: Cholecystectomy, Hysterectomy Additional Past Surgical History / Comment(s): parathyroidectomy Past Anesthesia/Blood Transfusion Reactions: No Reported Reaction Past Psychological History: Bipolar Smoking Status: Never smoker Past Alcohol Use History: None Reported Past Drug Use History: Opiates, Prescription Drug Abuse - Past Family History Father Family Medical History: Coronary Artery Disease (CAD) Additional Family Medical History / Comment(s): Father is of blood cancer. Mother Family Medical History: Coronary Artery Disease (CAD) Additional Family Medical History / Comment(s): Mother is living General Exam Limitations: no limitations General appearance: alert, in no apparent distress Head exam: Present: atraumatic, normocephalic, normal inspection Eye exam: Present: normal appearance, PERRL, EOMI. Absent: scleral icterus, conjunctival injection, periorbital swelling ENT exam: Present: normal exam, mucous membranes moist Neck exam: Present: normal inspection. Absent: tenderness, meningismus, lymphadenopathy Respiratory exam: Present: normal lung sounds bilaterally. Absent: respiratory distress, wheezes, rales, rhonchi, stridor Cardiovascular Exam: Present: regular rate, normal rhythm, normal heart sounds. Absent: systolic murmur, diastolic murmur, rubs, gallop, clicks GI/Abdominal exam: Present: soft, normal bowel sounds. Absent: distended, tenderness, guarding, rebound, rigid Extremities exam: Present: normal inspection, full ROM, normal capillary refill. Absent: tenderness, pedal edema, joint swelling, calf tenderness Back exam: Present: normal inspection Neurological exam: Present: alert, oriented X3, CN II-XII intact Psychiatric exam: Present: normal affect, normal mood Skin exam: Present: warm, dry, intact, normal color. Absent: rash Course Vital Signs 07/05/21 07/05/21 07/06/21 21:04 23:00 04:20 Temperature 98.6 F 98.3 F 97.9 F Pulse Rate 83 78 92 Respiratory 15 18 18 Rate Blood Pressure 108/65 151/65 110/70 O2 Sat by Pulse 96 98 97 Oximetry - Reevaluation(s) Reevaluation #1: 07/06/21 02:24 Medical record is reviewed 07/06/21 02:24 Medically clear for psychiatric evaluation Medical Decision Making - Medical Decision Making 61 female seen in however psychiatry will need inpatient psychiatric evaluation and treatment, I did follow up with petition with a certification for patient to be seen and reevaluated by psychiatry - Lab Data Result diagrams: 07/05/21 22:59 07/05/21 22:59 Lab Results 07/05/21 07/05/21 07/06/21 Range/Units 22:59 22:59 00:35 WBC 9.0 (3.8-10.6) k/uL RBC 5.05 (3.80-5.40) m/uL Hgb 15.8 (11.4-16.0) gm/dL Hct 46.1 H (34.0-46.0) % MCV 91.3 (80.0-100.0) fL MCH 31.3 (25.0-35.0) pg MCHC 34.2 (31.0-37.0) g/dL RDW 12.3 (11.5-15.5) % Plt Count 261 (150-450) k/uL MPV 7.5 Neutrophils % 76 % Lymphocytes % 16 % Monocytes % 5 % Eosinophils % 0 % Basophils % 1 % Neutrophils # 6.9 (1.3-7.7) k/uL Lymphocytes # 1.5 (1.0-4.8) k/uL Monocytes # 0.5 (0-1.0) k/uL Eosinophils # 0.0 (0-0.7) k/uL Basophils # 0.1 (0-0.2) k/uL Sodium 141 (137-145) mmol/L Potassium 4.0 (3.5-5.1) mmol/L Chloride 111 H (98-107) mmol/L Carbon Dioxide 23 (22-30) mmol/L Anion Gap 7 mmol/L BUN 10 (7-17) mg/dL Creatinine 1.16 H (0.52-1.04) mg/dL Est GFR (CKD-EPI)AfAm 59 (>60 ml/min/1.73 sqM) Est GFR (CKD-EPI)NonAf 52 (>60 ml/min/1.73 sqM) Glucose 107 H (74-99) mg/dL Calcium 10.3 H (8.4-10.2) mg/dL Total Bilirubin 0.6 (0.2-1.3) mg/dL AST 26 (14-36) U/L ALT 18 (4-34) U/L Alkaline Phosphatase 137 H (38-126) U/L Creatine Kinase 47 (30-135) U/L Total Protein 7.0 (6.3-8.2) g/dL Albumin 4.3 (3.5-5.0) g/dL Urine Color Urine Appearance (Clear) Urine pH (5.0-8.0) Ur Specific [place] (1.001-1.035) Urine Protein (Negative) Urine Glucose (UA) (Negative) Urine Ketones (Negative) Urine Blood (Negative) Urine Nitrite (Negative) Urine Bilirubin (Negative) Urine Urobilinogen (<2.0) mg/dL Ur Leukocyte Esterase (Negative) Urine RBC (0-5) /hpf Urine WBC (0-5) /hpf Ur Squamous Epith Cells (0-4) /hpf Urine Bacteria (None) /hpf Hyaline Casts (0-2) /lpf Urine Mucus (None) /hpf Salicylates <1.0 mg/dL Urine Opiates Screen Not Detected (NotDetected) Ur Oxycodone Screen Not Detected (NotDetected) Urine Methadone Screen Not Detected (NotDetected) Ur Propoxyphene Screen Not Detected (NotDetected) Acetaminophen <10.0 ug/mL Ur Barbiturates Screen Not Detected (NotDetected) U Tricyclic Antidepress Not Detected (NotDetected) Ur Phencyclidine Scrn Not Detected (NotDetected) Ur Amphetamines Screen Not Detected (NotDetected) U Methamphetamines Scrn Not Detected (NotDetected) U Benzodiazepines Scrn Not Detected (NotDetected) Urine Cocaine Screen Not Detected (NotDetected) U Marijuana (THC) Screen Not Detected (NotDetected) Serum Alcohol <10 mg/dL Coronavirus (PCR) (Not Detectd) 07/06/21 07/06/21 Range/Units 00:35 03:00 WBC (3.8-10.6) k/uL RBC (3.80-5.40) m/uL Hgb (11.4-16.0) gm/dL Hct (34.0-46.0) % MCV (80.0-100.0) fL MCH (25.0-35.0) pg MCHC (31.0-37.0) g/dL RDW (11.5-15.5) % Plt Count (150-450) k/uL MPV Neutrophils % % Lymphocytes % % Monocytes % % Eosinophils % % Basophils % % Neutrophils # (1.3-7.7) k/uL Lymphocytes # (1.0-4.8) k/uL Monocytes # (0-1.0) k/uL Eosinophils # (0-0.7) k/uL Basophils # (0-0.2) k/uL Sodium (137-145) mmol/L Potassium (3.5-5.1) mmol/L Chloride (98-107) mmol/L Carbon Dioxide (22-30) mmol/L Anion Gap mmol/L BUN (7-17) mg/dL Creatinine (0.52-1.04) mg/dL Est GFR (CKD-EPI)AfAm (>60 ml/min/1.73 sqM) Est GFR (CKD-EPI)NonAf (>60 ml/min/1.73 sqM) Glucose (74-99) mg/dL Calcium (8.4-10.2) mg/dL Total Bilirubin (0.2-1.3) mg/dL AST (14-36) U/L ALT (4-34) U/L Alkaline Phosphatase (38-126) U/L Creatine Kinase (30-135) U/L Total Protein (6.3-8.2) g/dL Albumin (3.5-5.0) g/dL Urine Color Yellow Urine Appearance Clear (Clear) Urine pH 6.0 (5.0-8.0) Ur Specific [place] 1.008 (1.001-1.035) Urine Protein Negative (Negative) Urine Glucose (UA) Negative (Negative) Urine Ketones Negative (Negative) Urine Blood Negative (Negative) Urine Nitrite Negative (Negative) Urine Bilirubin Negative (Negative) Urine Urobilinogen <2.0 (<2.0) mg/dL Ur Leukocyte Esterase Trace H (Negative) Urine RBC 1 (0-5) /hpf Urine WBC 5 (0-5) /hpf Ur Squamous Epith Cells 4 (0-4) /hpf Urine Bacteria Rare H (None) /hpf Hyaline Casts 1 (0-2) /lpf Urine Mucus Rare H (None) /hpf Salicylates mg/dL Urine Opiates Screen (NotDetected) Ur Oxycodone Screen (NotDetected) Urine Methadone Screen (NotDetected) Ur Propoxyphene Screen (NotDetected) Acetaminophen ug/mL Ur Barbiturates Screen (NotDetected) U Tricyclic Antidepress (NotDetected) Ur Phencyclidine Scrn (NotDetected) Ur Amphetamines Screen (NotDetected) U Methamphetamines Scrn (NotDetected) U Benzodiazepines Scrn (NotDetected) Urine Cocaine Screen (NotDetected) U Marijuana (THC) Screen (NotDetected) Serum Alcohol mg/dL Coronavirus (PCR) Not Detected (Not Detectd) - EKG Data -: EKG Interpreted by Me (EKG shows sinus rhythm 77 FL 154 QRS 106 QTc 486) Disposition Clinical Impression: Psychiatric illness, PTSD (post-traumatic stress disorder), Anxiety disorder, Drug overdose, Suicide attempt Disposition: TRANSFER TO PSYCH HOSP/UNIT Condition: Serious Is patient prescribed a controlled substance at d/c from ED?: No
[2021-07-05 23:28] LABS: Basophils # (A) 0.1 k/uL (0-0.2); Basophils % (A) 1 %; Eosinophils % (A) 0 %; HCT 46.1 % (34.0-46.0); HGB 15.8 gm/dL (11.4-16.0); Lymphocytes # (A) 1.5 k/uL (1.0-4.8); Lymphocytes % (A) 16 %; MCH 31.3 pg (25.0-35.0); MCHC 34.2 g/dL (31.0-37.0); MCV 91.3 fL (80.0-100.0); Mean Platelet Volume 7.5; Monocytes # (A) 0.5 k/uL (0-1.0); Monocytes % (A) 5 %; Neutrophils # (A) 6.9 k/uL (1.3-7.7); Neutrophils % (A) 76 %; Platelet Count 261 k/uL (150-450); RBC 5.05 m/uL (3.80-5.40); RDW 12.3 % (11.5-15.5)
[2021-07-05 23:56] LABS: ALT 18 U/L (4-34); AST 26 U/L (14-36); Acetaminophen <10.0 ug/mL; African American GFR (CKD) 59 (>60 ml/min/1.73 sqM); Albumin 4.3 g/dL (3.5-5.0); Alcohol <10 mg/dL; Alkaline Phosphatase 137 U/L (38-126); Anion Gap 7 mmol/L; Blood Urea Nitrogen 10 mg/dL (7-17); Calcium 10.3 mg/dL (8.4-10.2); Carbon Dioxide 23 mmol/L (22-30); Chloride 111 mmol/L (98-107); Creatine Kinase 47 U/L (30-135); Glucose 107 mg/dL (74-99); Non-African American GFR(CKD) 52 (>60 ml/min/1.73 sqM); Salicylate <1.0 mg/dL; Sodium 141 mmol/L (137-145); Total Bilirubin 0.6 mg/dL (0.2-1.3)
[2021-07-06 01:07] LABS: Amphetamine Screen,Urine Not Detected (NotDetected); Barbiturate Screen,Urine Not Detected (NotDetected); Benzodiazepines Screen,Urine Not Detected (NotDetected); Cocaine Screen,Urine Not Detected (NotDetected); Methadone Screen, Urine Not Detected (NotDetected); Opiate Screen,Urine Not Detected (NotDetected); Oxycodone Screen, Urine Not Detected (NotDetected); Phencyclidine Screen,Urine Not Detected (NotDetected); Tricyclic Antidepressant,Urine Not Detected (NotDetected); Urn Cannabinoid Scrn Not Detected (NotDetected)
[2021-07-06] MEDS ORDERED: MAGNESIUM HYDROXIDE 2,400 MG/10 ML CUP PO PRN (03:32)
[2021-07-06] MEDS ORDERED: MAG HYDROX/AL HYDROX/SIMETH 30 ML CUP PO PRN (03:32)
[2021-07-06] MEDS ORDERED: ACETAMINOPHEN TAB 325 MG TAB PO PRN (03:32)
[2021-07-06 04:37] LABS: Appearance,Urine Clear (Clear); Bacteria,Urine Rare /hpf; Bilirubin,Urine Negative (Negative); Blood,Urine Negative (Negative); Color,Urine Yellow; Glucose,Urine (UA) Negative (Negative); Hyaline Casts,Urine 1 /lpf (0-2); Ketones,Urine Negative (Negative); Leukocyte Esterase,Urine Trace (Negative); Mucus,Urine Rare /hpf; Nitrite,Urine Negative (Negative); Protein,Urine Negative (Negative); RBC,Urine 1 /hpf (0-5); Specific Gravity,Urine 1.008 (1.001-1.035); Squamous Epithelial Cell,Urine 4 /hpf (0-4); Urobilinogen,Urine <2.0 mg/dL (<2.0); WBC,Urine 5 /hpf (0-5)
[2021-07-06] MEDS: LEVOTHYROXINE 50 MCG TAB PO SCH (06:23)
[2021-07-06] MEDS: GABAPENTIN 300 MG CAP PO SCH ×3 (06:23→21:02)
[2021-07-06] MEDS ORDERED: LURASIDONE 40 MG TAB PO SCH (09:00)
[2021-07-06] MEDS: NICOTINE 14MG/24HR PATCH TRANSDERM SCH (09:50)
[2021-07-06] MEDS: busPIRone HCl 5 MG TAB PO SCH ×2 (09:50→21:01)
[2021-07-06] MEDS: BENZTROPINE MESYLATE 0.5 MG TAB PO SCH ×2 (09:51→21:01)
[2021-07-06] MEDS: LORazepam 1 MG TAB PO PRN (13:27)
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
[2021-07-06] MEDS: PRAZOSIN 1 MG CAP PO SCH (21:01)
[2021-07-06] MEDS: VENLAFAXINE HCL ER 150 MG CAP PO SCH (21:01)
[2021-07-07] MEDS: GABAPENTIN 300 MG CAP PO SCH ×3 (06:25→19:59)
[2021-07-07] MEDS: LEVOTHYROXINE 50 MCG TAB PO SCH (06:27)
[2021-07-07] MEDS: LURASIDONE 20 MG TAB PO SCH (07:31)
[2021-07-07] MEDS: busPIRone HCl 5 MG TAB PO SCH ×2 (07:32→19:59)
[2021-07-07] MEDS: BENZTROPINE MESYLATE 0.5 MG TAB PO SCH ×2 (07:32→19:59)
[2021-07-07] MEDS: NICOTINE 14MG/24HR PATCH TRANSDERM SCH (07:32)
[2021-07-07] MEDS: LORazepam 1 MG TAB PO PRN ×2 (07:33→16:31)
[2021-07-07] MEDS ORDERED: IPRATROPIUM-ALBUTEROL 3 ML NEB INHALATION PRN (11:26)
--- NOTE | 2021-07-07 11:26 | P.CONS ---
History of Present Illness - Reason for Consult Consult date: 07/07/21 Medical management of reflux, chronic renal failurez - History of Present Illness Josefa a 7-year-old female, well known to practice. Apparently 2 days ago she attempted to overdose on her psychiatric medications. She has a known history of bipolar disorder and has tried suicide several times unsuccessfully. She was fairly incoherent in the emergency room. Psychiatry evaluated her and she was voluntarily admitted. She is seen by me today in consultation for medical management. She is currently taking sucralfate and pantoprazole for reflux and esophagitis. She remains on Synthroid for hypothyroidism gabapentin for neuropathic pain. She indicates she is doing better today and that her is doing better. He has a significant history of alcoholism and is in a care facility at this time. Vital signs are stable. She is afebrile. CBC was normal hemoglobin of 15.8 and a WBC count of 9 with no shift. Chemistries were essentially normal. Her GFR is noted to be 52. She denies any chest pains pressures shortness of breath, nausea or vomiting. Does complain of midepigastric abdominal pain that has been better with medications recently. Review of Systems All systems: negative Past Medical History Past Medical History: COPD, GERD/Reflux, Renal Disease, Thyroid Disorder Additional Past Medical History / Comment(s): cysts on (R) kidney. History of Any Multi-Drug Resistant Organisms: None Reported Past Surgical History: Cholecystectomy, Hysterectomy Additional Past Surgical History / Comment(s): parathyroidectomy Past Anesthesia/Blood Transfusion Reactions: No Reported Reaction Past Psychological History: Bipolar Smoking Status: Never smoker Past Alcohol Use History: None Reported Past Drug Use History: Opiates, Prescription Drug Abuse - Past Family History Father Family Medical History: Coronary Artery Disease (CAD) Additional Family Medical History / Comment(s): Father is of blood cancer. Mother Family Medical History: Coronary Artery Disease (CAD) Additional Family Medical History / Comment(s): Mother is living Medications and Allergies Home Medications Medication Instructions Recorded Confirmed Type Pantoprazole Sodium [Protonix] 40 mg PO BID 05/02/19 07/05/21 History Sucralfate [Carafate] 1 gm PO AC-BID 02/04/21 07/05/21 History Ipratropium-Albuterol Nebulize 3 ml INHALATION RT-QID PRN 14 Days 03/20/21 07/05/21 Rx [Duoneb 0.5 mg-3 mg/3 ml Soln] ml Prazosin [Minipress] 3 mg PO HS 30 Days cap 04/24/21 07/05/21 Rx Benztropine Mesylate [Cogentin] 0.5 mg PO BID 07/05/21 07/05/21 History Gabapentin 600 mg PO Q8H 07/05/21 07/05/21 History Levothyroxine Sodium [Synthroid] 50 mcg PO DAILY 07/05/21 07/05/21 History Lurasidone [Latuda] 40 mg PO DAILY 07/05/21 07/05/21 History Venlafaxine HCl ER [Effexor XR] 150 mg PO HS 07/05/21 07/05/21 History busPIRone HCL 15 mg PO BID 07/05/21 07/05/21 History rOPINIRole HCL [Requip] 0.5 mg PO HS 07/05/21 07/05/21 History Allergies Allergy/AdvReac Type Severity Reaction Status Date / Time No Known Allergies Allergy Verified 07/05/21 23:26 Physical Exam Vitals: Vital Signs Temp Pulse Pulse Resp BP BP 07/07/21 07:36 101 H 138/57 07/07/21 06:57 97.5 F L 54 L 18 139/62 07/07/21 06:56 97.8 F 77 16 97/56 07/06/21 21:04 85 18 117/61 Intake and Output 07/06/21 07/07/21 07/07/21 22:59 06:59 14:59 Other: Weight 64.5 kg GENERAL: Well-appearing, well-nourished and in no acute distress. HEAD: Atraumatic, normocephalic. EYES: Pupils equal round and reactive to light, extraocular movements intact, sclera anicteric, conjunctiva are normal. ENT:nares patent, oropharynx clear without exudates. Moist mucous membranes. NECK: Normal range of motion, supple without lymphadenopathy or JVD, no thyromegaly LUNGS: Breath sounds coarse to auscultation bilaterally and equal. No wheezes rales or rhonchi. HEART: Regular rate and rhythm without murmurs, rubs or gallops.S1S2 Normal ABDOMEN: Soft, nontender, normoactive bowel sounds. No guarding, no rebound. No masses appreciated. EXTREMITIES: Normal range of motion, no pitting or edema. No clubbing or cyanosis. NEUROLOGICAL: Cranial nerves II through XII grossly intact. Normal speech, normal gait. PSYCH: Happy mood, normal affect. SKIN: Warm, Dry, normal turgor, no rashes or lesions noted. Results CBC & Chem 7: 07/05/21 22:59 10 22:59 Assessment and Plan (1) Suicide attempt Current Visit: Yes Status: Acute Code(s): T14.91XA - SUICIDE ATTEMPT, INITIAL ENCOUNTER SNOMED Code(s): 24483299 (2) Drug overdose Current Visit: Yes Status: Acute Code(s): T50.901A - POISONING BY UNSP DRUG/MEDS/BIOL SUBST, ACCIDENTAL, INIT SNOMED Code(s): 1733328480 (3) Psychiatric illness Current Visit: Yes Status: Acute Code(s): F99 - MENTAL DISORDER, NOT OTHERWISE SPECIFIED SNOMED Code(s): 85486663 (4) CKD (chronic kidney disease) stage 3, GFR 30-59 ml/min Current Visit: Yes Status: Acute Code(s): N18.30 - CHRONIC KIDNEY DISEASE, STAGE 3 UNSPECIFIED SNOMED Code(s): 425274087 (5) COPD (chronic obstructive pulmonary disease) Current Visit: No Status: Acute Code(s): J44.9 - CHRONIC OBSTRUCTIVE PULMONARY DISEASE, UNSPECIFIED SNOMED Code(s): 56380488 (6) Chronic GERD Current Visit: No Status: Chronic Code(s): K21.9 - GASTRO-ESOPHAGEAL REFLUX DISEASE WITHOUT ESOPHAGITIS SNOMED Code(s): 737760956 (7) Hypothyroidism Current Visit: No Status: Chronic Code(s): E03.9 - HYPOTHYROIDISM, UNSPECIFIED SNOMED Code(s): 98803014 (8) Nicotine dependence Current Visit: No Status: Chronic Priority: Medium Code(s): F17.200 - NICOTINE DEPENDENCE, UNSPECIFIED, UNCOMPLICATED SNOMED Code(s): 96850261 Plan: I will order a restart of her home nonpsychiatric medications. We'll repeat her kidney function and calcium in the next day. She'll be reevaluated as needed through her psychiatric state. I'll ask her to follow-up in the office after her release for routine care.
[2021-07-07] MEDS: SUCRALFATE 1 GM TAB PO SCH ×2 (12:20→16:31)
[2021-07-07] MEDS: PANTOPRAZOLE 40 MG TABLET PO SCH ×2 (12:20→19:59)
[2021-07-07] MEDS: VENLAFAXINE HCL ER 150 MG CAP PO SCH (19:59)
[2021-07-07] MEDS: PRAZOSIN 1 MG CAP PO SCH (19:59)
--- NOTE | 2021-07-07 22:36 | P.PN ---
Progress Note - Text Progress Note Date: 07/07/21 Subjective: Patient was seen today as a cross coverage for Dr. Jarrell. The patient was evaluated, chart reviewed, case discussed with the treatment team. Patient reports good sleep last night, and appetite was reported as " not the best". Patient has been going to some groups and other unit activities. The patient is compliant with her medications and denies any adverse reactions. Patient reports feeling more irritable and jittery with racing thoughts. She denies depression or hopelessness, and he denies any suicidal or homicidal ideation. Reports sometimes hearing voices in her head as good talk about herself, and sometimes having paranoid ideation Objective: Vitals has been reviewed. Mental status examination; Appearance: Appears stated age, disheveled, average body built, and no specific features. Gait/ posture: Steady gait, normal arm swinging, no abnormal movements, with relaxed posture. Attitude and Behavior: not engaged, not related to the interviewer in socially accepted manner, poor eye contact during course of interview. Motor Activity: Normal psychomotor activity. Speech: spontaneous, normal rate, rhythm, and articulation. normal volume. not pressured. Language: Articulating, naming objects and repeat phrases. Mood: anxious, depressed Affect: Restricted. Thought process: linear but poverty of thoughts. Thought content: paranoid, denies suicidal thoughts, denies homicidal thoughts, denies intentions, or plans. Perception: Reports auditory hallucinations, but denies other hallucinations. Alertness: No impairment. Concentration: impaired Orientation: oriented to time, person, place and situation Insight regarding psychiatric condition: fair Judgment regarding daily activities and social situation: fair Impulse control: fair Assessment: Bipolar 1 disorder, most recent episode depressed Post traumatic stress disorder Alcohol use disorder. Nicotine use disorder Plan: Continue inpatient level of care due to patient needs further monitoring and stabilization and still meets criteria for inpatient level of care Precautions: Continue 15 minutes check for safety. Consider medical consultation if any acute medical issues arise. Provide the patient individual, group therapy, substance use disorder counseling to give better insight and learn coping skills. Medications: Continue to do 60 mg daily for mood stabilization. Does was increased yesterday. Continue Effexor XR 150 mg daily for depression and anxiety. Continue BuSpar 10 mg twice daily for anxiety. Continue prazosin 3 mg at bedtime for PTSD. Continue Cogentin 0.5 mg twice daily for EPS. Continue Neurontin 600 mg 3 times a day before and anxiety and to help was maintaining sobriety for post acute withdrawal syndrome. Anel nicotine replacement treatment. Continue when necessary psychiatric medication including Ativan for anxiety. Continue nonpsychiatric medication as per medical team recommendations Discharge patient to OUTPATIENT services upon a stabilization
[2021-07-08] MEDS: GABAPENTIN 300 MG CAP PO SCH ×3 (06:07→21:02)
[2021-07-08] MEDS: LEVOTHYROXINE 50 MCG TAB PO SCH (06:08)
[2021-07-08 08:26] LABS: Potassium 4.4 mmol/L (3.5-5.1)
[2021-07-08] MEDS: busPIRone HCl 5 MG TAB PO SCH (08:26)
[2021-07-08] MEDS: BENZTROPINE MESYLATE 0.5 MG TAB PO SCH ×2 (08:26→21:02)
[2021-07-08] MEDS: PANTOPRAZOLE 40 MG TABLET PO SCH ×2 (08:26→17:34)
[2021-07-08] MEDS: LURASIDONE 20 MG TAB PO SCH (08:27)
[2021-07-08] MEDS: SUCRALFATE 1 GM TAB PO SCH ×2 (08:28→17:33)
[2021-07-08] MEDS: NICOTINE 14MG/24HR PATCH TRANSDERM SCH (08:28)
[2021-07-08] MEDS: LORazepam 1 MG TAB PO PRN (08:52)
--- NOTE | 2021-07-08 11:37 | P.PN ---
Progress Note - Text Progress Note Date: 07/08/21 Interval History: Patient was seen wandering the hallways and was directable and agreeable to speak with director underwriter sales in the office. The patient reports that she is feeling better today. She does admit that she has been expressing increased stressors that led up to this hospitalization. Notes that she overdosed in response to feeling overwhelmed with her situation. She reports that her and her split up in March and that she "does not want to have a divorce." She reports that one of her biggest stressors is her living with her sister. The patient states that she is unhappy with her current situation. She does state that being back on her medications and taking them appropriately as well as being on this unit and has give her time to think and calm down. She does express regret in overdosing. The patient states she was "coming off a manic phase" when she did. The patient reports that she was awake for 4 days without sleep and that she was very angry and labile. Patient is currently not endorsing any significant manic symptoms at this time. She denies any auditory or visual hallucinations. She denies any paranoia or delusions. The patient's primary concern at this time is elevated anxiety that she feels that Josh wasn't making her too sedated. Mental Status Exam: General Appearance: Patient appears to be stated age is alert, directable, and cooperative. Behavior: Patient is calmly seated without any agitated behavior. Speech: Patient's speech is fluent and nonpressured. Slightly slurred. Mood/Affect: Mood is improving mildly, affect is congruent and expansive. Suicidality/Homicidality: The patient is currently denying any suicidal or homicidal ideation, intention, and/or plan. Perceptions: Patient denies any visual hallucinations and denies any auditory hallucinations Though content/process: There is no evidence of any delusional thought content and thought process is linear and goal-directed. Memory and concentration: AOX3, grossly intact for the purposes of this session Judgment and insight: Improving mildly Vital Signs Temp 96.7 F L 07/08/21 06:28 Pulse 83 07/08/21 06:28 Resp 16 07/08/21 06:28 BP 108/67 07/08/21 06:28 Pulse Ox 98 07/06/21 05:09 Intake & Output 07/07/21 07/08/21 07/08/21 18:59 06:59 18:59 Weight 64.5 kg Laboratory Results - Last 24 Hours 07/08/21 07:01 Sodium 138 Potassium 4.4 Chloride 107 Carbon Dioxide 24 Anion Gap 7 BUN 21 H Creatinine 1.32 H Est GFR (CKD-EPI)AfAm 51 Est GFR (CKD-EPI)NonAf 44 Glucose 86 Calcium 10.0 Assessment Bipolar disorder, type I, depressive episode Posttraumatic chest start Alcohol use disorder Nicotine dependence Plan: -Patient continues to meet criteria for inpatient psychiatric admission for symptom stabilization and safety. Patient has signed adult voluntary form and medication consent and was placed in patient's chart. -Medications: Continue Latuda 60 mg aily for mood stabilization Continue Effexor XR 150 mg by mouth daily for depression and anxiety Increase BuSpar to 20 mg by mouth twice a day for anxiety Continue prazosin 3 mg at bedtime for PTSD Continue Cogentin 0.5 mg by mouth twice a day for EPS Continue gabapentin 600 mg by mouth every 8 hours for off label use for anxiety as well as sobriety. -When necessary Vistaril and Haldol for anxiety/agression. -NRT - nicotine patch -SW on board for discharge planning. Encouraged the patient to participate in milieu.
[2021-07-08] MEDS: busPIRone HCl 10 MG TAB PO SCH (21:02)
[2021-07-08] MEDS: VENLAFAXINE HCL ER 150 MG CAP PO SCH (21:02)
[2021-07-08] MEDS: PRAZOSIN 1 MG CAP PO SCH (21:03)
[2021-07-09] MEDS: GABAPENTIN 300 MG CAP PO SCH ×2 (06:01→13:49)
[2021-07-09] MEDS: LEVOTHYROXINE 50 MCG TAB PO SCH (06:01)
[2021-07-09 06:23] VITALS: BP 107/63; PULSE 82; RESP 18; TEMP 97.7
[2021-07-09] MEDS ORDERED: PANTOPRAZOLE 40 MG TABLET PO SCH (08:00)
[2021-07-09] MEDS: NICOTINE 14MG/24HR PATCH TRANSDERM SCH (08:36)
[2021-07-09] MEDS: busPIRone HCl 10 MG TAB PO SCH (08:36)
[2021-07-09] MEDS: BENZTROPINE MESYLATE 0.5 MG TAB PO SCH (08:36)
[2021-07-09] MEDS: LURASIDONE 20 MG TAB PO SCH (08:36)
[2021-07-09] MEDS: SUCRALFATE 1 GM TAB PO SCH (08:36)
--- NOTE | 2021-07-09 11:25 | P.DS ---
Providers Date of admission: 07/06/21 03:12 Expected date of discharge: 07/09/21 Attending physician: Alex Jarrell MD Consults: 07/06/21 03:32 Consult Physician Routine Consulting Provider: Angel Ansari Consult Reason/Comments: H and P Do you want consulting provider notified?: Yes, Notify in am Primary care physician: Angel Ansari - Discharge Diagnosis(es) (1) Bipolar 1 disorder Current Visit: Yes Status: Acute Priority: High (2) PTSD (post-traumatic stress disorder) Current Visit: Yes Status: Chronic Priority: Medium (3) Alcohol use disorder Current Visit: Yes Status: Chronic Priority: Medium (4) Nicotine dependence Current Visit: Yes Status: Chronic Priority: Medium Hospital Course: Admission HPI: Initial psychiatric volition was completed by Dr. Crane on 07/06/2021 who wrote: "Josefa Moy is a 61-year-old female who currently lives with her sister, unemployed on SSD, has psychiatric history of bipolar disorder, PTSD, alcohol use disorder, and medical history of COPD, renal disease, and thyroid disorder. The patient has been admitted to our inpatient psychiatric services after been transferred from [facility] ED. Patient was initially brought to ED after she had suicidal attempt by overdose on her prescription medications. The patient has been admitted on voluntary basis to our service. "I need help." Patient was brought to ED for psychiatric evaluation after she took an overdose and attempted suicide. According to ED records, the patient admitted for suicidal ideation and she was very poor historian, not her stated and history taking. During psychiatric evaluation today, the patient continued to be poor historian but she stated" I don't want divorce" and she feels constantly anxious. Patient reports yesterday overdosed on her prescription medication but she couldn't recall their names or the amount she talked. She reports cold [facility] crisis line after overdosed who called 911 and brought her to the hospital. Patient reports feeling extremely anxious with racing thoughts, very irritable, and easily agitated. She reports feeling depressed, sad, with lack of motivation. She didn't answer question if she is still feeling suicidal. Patient denies feeling manic symptoms at this time including symptoms of elevated mood, grandiosity, or impulsive/uninhibited behavior. She denies any current symptoms of hallucinations, or delusions, but reports having paranoid ideation. The patient was recently discharged from this unit 2 months ago with diagnosis of bipolar disorder, PTSD, and alcohol use disorder prescribed her current psych medications that to do, Effexor, BuSpar, and prazosin. She reports followed with [facility] for medication management and her psychiatric provider to change it some of her medications but she couldn't recall exact changes." Hospital course: Upon admission to the unit patient was initially disheveled, paranoid, and suicidal. Patient was however directable and agreeable to commence treatment. Patient got along well with other patients on the unit and followed unit protocol. Patient was compliant with the medications and denied any side effects throughout hospital course. Patient was started on her home medications of Effexor, BuSpar, prazosin, Cogentin, gabapentin and her little to do was also increased to 60 mg for mood stabilization. Patient spoke of her stressors and engaged in therapy both group and individual. Patient was also seen by medical team for history and physical exam. Throughout the course of the hospitalization patient gradually improved with regards to her mood, psychosis, intolerance of her medications. Her anxiety also improved. The patient displayed better insight and judgment. She became more future oriented. Patient endorsed wanting to live for herself and for her family. On the day of discharge, the patient is not endorsing any suicidal or homicidal ideation, intention, and/or plan. She is not reporting any auditory or visual hallucinations. She denies any access to firearms or other weapons. The patient has been adherent with the medications and is not endorsing any significant side effects at this time. The patient was encouraged to be adherent with her medications and follow-up with outpatient appointments for mental health and for primary care. Prior to discharge, finding meaning appearance was social work supervisor to answer questions and ensure safety. Patient does have significant history of substance abuse however was counseled on 20 all substances including alcohol and marijuana. Patient states that she has been doing a good job of maintaining sobriety prior to this admission. Mental status exam: General Appearance: Patient appears to be stated age is alert, pleasant, and cooperative. Patient is in no acute distress and has fair hygiene and grooming Behavior: Patient is calmly seated without any agitated behavior. Speech: Patient's speech is fluent and nonpressured. Mood/Affect: Patient reports their mood is "really good", affect is congruent and euthymic to bright. Full range of affect. Suicidality/Homicidality: Patient denies having any suicidal or homicidal ideat ion intent or plan. Perceptions: Patient denies any auditory or visual hallucinations. Though content/process: There is no evidence of any delusional thought content and thought process is linear and goal-directed. more future oriented Memory and concentration: AOX3, grossly intact for the purposes of this session. Can spell "WORLD" backwards correctly. Judgment and insight: Improved with guarded prognosis Vital Signs Temp 97.7 F 07/09/21 06:22 Pulse 82 07/09/21 06:22 Resp 18 07/09/21 06:22 BP 107/63 07/09/21 06:22 Pulse Ox 95 07/09/21 06:22 Impression: Bipolar disorder, type I, depressive episode Posttraumatic chest start Alcohol use disorder Nicotine dependence Plan: -Continue with discharge today as patient has improved and stabilized psychiatrically and is not currently an imminent threat to self and/or others. Patient will remain at chronically elevated risk for harm to self and/or others due to her alcohol abuse history and prior attempts at suicide. -Continue medications: Cogentin 0.5 mg by mouth twice a day for EPS side effects Latuda 60 milligrams daily for mood stabilization/psychosis Effexor XR 150 mg by mouth at bedtime for PTSD/anxiety Prazosin 3 mg by mouth at bedtime for PTSD related nightmares BuSpar 20 mg by mouth twice a day for anxiety Gabapentin 600 mg by mouth every 8 hours for off label anxiety and for alcohol cessation. Habitrol patches for nicotine cessation Requip for restless leg -Patient was counseled on the need for medication compliance and appropriate follow-up at mental health and also primary care for medical issues. Patient verbalized understanding and agreed. -Social work to arrange for and conduct family meeting to ensure safety upon discharge and answer any questions/concerns. Social work also to arrange for patients follow up appointments with [facility] for psychiatric care along with follow up with primary care provider. -Patient counseled on abstaining from recreational drugs and marijuana and alcohol. Was informed/educated on the adverse effects on their physical and mental health. Patient verbally agreed and understood. Patient was offered substance abuse treatment however declined at this time. -Patient was instructed to return to the hospital or seek immediate medical care if their psychiatric or medical symptoms do worsen or reoccur. -Psychoeducation and supportive therapy provided to patient. Risks and benefits of pharmacological treatment versus the risks and benefits of nontreatment weight and discussed. Informed consent discussion held. Common side effects of psychotropics discussed such as, but not limited to headache, GI disturbance, sexual dysfunction, movement disorders, sedation, and orthostatic hypotension. Life threatening and blackbox warnings of prescribed medications also discussed. Potential risks of operating a vehicle or heavy machinery discussed with patient at length. Advised on importance of compliance and a reliable and responsible manner. Patient advised to review FDA consumer labeling of all medications prior to taking. Patient verbalized understanding of potential risks, and agrees with current treatment plan. Patient advised to medically contact physician/emergency personnel if any acute changes in condition occur. Laboratory Results WBC 9.0 k/uL (3.8-10.6) 07/05/21 22:59 RBC 5.05 m/uL (3.80-5.40) 07/05/21 22:59 Hgb 15.8 gm/dL (11.4-16.0) 07/05/21 22:59 Hct 46.1 % (34.0-46.0) H 07/05/21 22:59 MCV 91.3 fL (80.0-100.0) 07/05/21 22:59 MCH 31.3 pg (25.0-35.0) 07/05/21 22:59 MCHC 34.2 g/dL (31.0-37.0) 07/05/21 22:59 RDW 12.3 % (11.5-15.5) 07/05/21 22:59 Plt Count 261 k/uL (150-450) 07/05/21 22:59 MPV 7.5 07/05/21 22:59 Neutrophils % 76 % 07/05/21 22:59 Lymphocytes % 16 % 07/05/21 22:59 Monocytes % 5 % 07/05/21 22:59 Eosinophils % 0 % 07/05/21 22:59 Basophils % 1 % 07/05/21 22:59 Neutrophils # 6.9 k/uL (1.3-7.7) 07/05/21 22:59 Lymphocytes # 1.5 k/uL (1.0-4.8) 07/05/21 22:59 Monocytes # 0.5 k/uL (0-1.0) 07/05/21 22:59 Eosinophils # 0.0 k/uL (0-0.7) 07/05/21 22:59 Basophils # 0.1 k/uL (0-0.2) 07/05/21 22:59 Sodium 138 mmol/L (137-145) 07/08/21 07:01 Potassium 4.4 mmol/L (3.5-5.1) 07/08/21 07:01 Chloride 107 mmol/L (98-107) 07/08/21 07:01 Carbon Dioxide 24 mmol/L (22-30) 07/08/21 07:01 Anion Gap 7 mmol/L 07/08/21 07:01 BUN 21 mg/dL (7-17) H 07/08/21 07:01 Creatinine 1.32 mg/dL (0.52-1.04) H 07/08/21 07:01 Est GFR (CKD-EPI)AfAm 51 (>60 ml/min/1.73 sqM) 07/08/21 07:01 Est GFR (CKD-EPI)NonAf 44 (>60 ml/min/1.73 sqM) 07/08/21 07:01 Glucose 86 mg/dL (74-99) 07/08/21 07:01 Calcium 10.0 mg/dL (8.4-10.2) 07/08/21 07:01 Total Bilirubin 0.6 mg/dL (0.2-1.3) 07/05/21 22:59 AST 26 U/L (14-36) 07/05/21 22:59 ALT 18 U/L (4-34) 07/05/21 22:59 Alkaline Phosphatase 137 U/L (38-126) H 07/05/21 22:59 Creatine Kinase 47 U/L (30-135) 07/05/21 22:59 Total Protein 7.0 g/dL (6.3-8.2) 07/05/21 22:59 Albumin 4.3 g/dL (3.5-5.0) 07/05/21 22:59 Urine Color Yellow 07/06/21 00:35 Urine Appearance Clear (Clear) 07/06/21 00:35 Urine pH 6.0 (5.0-8.0) 07/06/21 00:35 Ur Specific Bas[place] 1.008 (1.001-1.035) 07/06/21 00:35 Urine Protein Negative (Negative) 07/06/21 00:35 Urine Glucose (UA) Negative (Negative) 07/06/21 00:35 Urine Ketones Negative (Negative) 07/06/21 00:35 Urine Blood Negative (Negative) 07/06/21 00:35 Urine Nitrite Negative (Negative) 07/06/21 00:35 Urine Bilirubin Negative (Negative) 07/06/21 00:35 Urine Urobilinogen <2.0 mg/dL (<2.0) 07/06/21 00:35 Ur Leukocyte Esterase Trace (Negative) H 07/06/21 00:35 Urine RBC 1 /hpf (0-5) 07/06/21 00:35 Urine WBC 5 /hpf (0-5) 07/06/21 00:35 Ur Squamous Epith Cells 4 /hpf (0-4) 07/06/21 00:35 Urine Bacteria Rare /hpf (None) H 07/06/21 00:35 Hyaline Casts 1 /lpf (0-2) 07/06/21 00:35 Urine Mucus Rare /hpf (None) H 07/06/21 00:35 Salicylates <1.0 mg/dL 07/05/21 22:59 Urine Opiates Screen Not Detected (NotDetected) 07/06/21 00:35 Ur Oxycodone Screen Not Detected (NotDetected) 07/06/21 00:35 Urine Methadone Screen Not Detected (NotDetected) 07/06/21 00:35 Ur Propoxyphene Screen Not Detected (NotDetected) 07/06/21 00:35 Acetaminophen <10.0 ug/mL 07/05/21 22:59 Ur Barbiturates Screen Not Detected (NotDetected) 07/06/21 00:35 U Tricyclic Antidepress Not Detected (NotDetected) 07/06/21 00:35 Ur Phencyclidine Scrn Not Detected (NotDetected) 07/06/21 00:35 Ur Amphetamines Screen Not Detected (NotDetected) 07/06/21 00:35 U Methamphetamines Scrn Not Detected (NotDetected) 07/06/21 00:35 U Benzodiazepines Scrn Not Detected (NotDetected) 07/06/21 00:35 Urine Cocaine Screen Not Detected (NotDetected) 07/06/21 00:35 U Marijuana (THC) Screen Not Detected (NotDetected) 07/06/21 00:35 Serum Alcohol <10 mg/dL 07/05/21 22:59 Coronavirus (PCR) Not Detected (Not Detectd) 07/06/21 03:00 Allergies Allergy/AdvReac Type Severity Reaction Status Date / Time No Known Allergies Allergy Verified 07/05/21 23:26 Patient Condition at Discharge: Stable Plan - Discharge Summary Discharge Rx Participant: No New Discharge Prescriptions: New Benztropine Mesylate [Cogentin] 0.5 mg PO BID 30 Days tab Venlafaxine HCl ER [Effexor XR] 150 mg PO HS 30 Days Nicotine 14Mg/24Hr Patch [Habitrol] 1 patch TRANSDERM DAILY 30 Days patch Prazosin [Minipress] 3 mg PO HS 30 Days cap rOPINIRole HCL [Requip] 0.5 mg PO HS 30 Days tab busPIRone HCl [Buspar] 20 mg PO BID 30 Days tab Lurasidone [Latuda] 60 mg PO DAILY 30 Days tab Gabapentin [Neurontin] 600 mg PO Q8H 30 Days cap Levothyroxine Sodium [Synthroid] 50 mcg PO DAILY@0630 30 Days tab Continue Pantoprazole Sodium [Protonix] 40 mg PO BID Ipratropium-Albuterol Nebulize [Duoneb 0.5 mg-3 mg/3 ml Soln] 3 ml INHALATION RT-QID PRN 14 Days ml PRN Reason: Shortness Of Breath Or Wheezing Sucralfate [Carafate] 1 gm PO AC-BID Discontinued Prazosin [Minipress] 3 mg PO HS 30 Days cap Levothyroxine Sodium [Synthroid] 50 mcg PO DAILY Lurasidone [Latuda] 40 mg PO DAILY rOPINIRole HCL [Requip] 0.5 mg PO HS Venlafaxine HCl ER [Effexor XR] 150 mg PO HS Benztropine Mesylate [Cogentin] 0.5 mg PO BID busPIRone HCL 15 mg PO BID Gabapentin 600 mg PO Q8H Discharge Medication List Pantoprazole Sodium [Protonix] 40 mg PO BID 05/02/19 [History] Sucralfate [Carafate] 1 gm PO AC-BID 02/04/21 [History] Ipratropium-Albuterol Nebulize [Duoneb 0.5 mg-3 mg/3 ml Soln] 3 ml INHALATION RT-QID PRN 14 Days ml 03/20/21 [Rx] Benztropine Mesylate [Cogentin] 0.5 mg PO BID 30 Days tab 07/09/21 [Rx] Gabapentin [Neurontin] 600 mg PO Q8H 30 Days cap 07/09/21 [Rx] Levothyroxine Sodium [Synthroid] 50 mcg PO DAILY@0630 30 Days tab 07/09/21 [Rx] Lurasidone [Latuda] 60 mg PO DAILY 30 Days tab 07/09/21 [Rx] Nicotine 14Mg/24Hr Patch [Habitrol] 1 patch TRANSDERM DAILY 30 Days patch 07/09/21 [Rx] Prazosin [Minipress] 3 mg PO HS 30 Days cap 07/09/21 [Rx] Venlafaxine HCl ER [Effexor XR] 150 mg PO HS 30 Days 07/09/21 [Rx] busPIRone HCl [Buspar] 20 mg PO BID 30 Days tab 07/09/21 [Rx] rOPINIRole HCL [Requip] 0.5 mg PO HS 30 Days tab 07/09/21 [Rx] Follow up Appointment(s)/Referral(s): [facility] [Outside] - 07/16/21 3:30 pm (07-16-21 @ 3:30 with [facility] REPRESENTAT[facility] Laura Figueredo) Angel Ansari MD [Primary Care Provider] - 1-2 days Activity/Diet/Wound Care/Special Instructions: Activity and diet as tolerated. Avoid the use of street drugs and alcohol. Take all medications as prescribed. When you are in need of refills on your medications please contact your medical provider and/or outpatient psychiatrist to have this done. Please go to scheduled outpatient appointment for aftercare treatment. If symptoms return or become worse, call the crisis line at and/or go to the nearest emergency room for evaluation. Discharge Disposition: HOME SELF-CARE
== END 2021-07-09 16:55 | disposition home or self-care (01) | DRG 885 ==
LOC: EC 20:56 → 3MHU 07-06 03:12
PROVIDERS: ADMIT Psychiatry & Neurology Psychiatry; ATTEND Psychiatry & Neurology Psychiatry
DX: F31.9 Bipolar disorder, unspecified (principal); E03.9 Hypothyroidism, unspecified; J44.9 Chronic obstructive pulmonary disease, unspecified; F60.0 Paranoid personality disorder; T50.902A Poisoning by unspecified drugs, medicaments and biological substances, intentional self-harm, initial encounter; E89.2 Postprocedural hypoparathyroidism; N18.30 Chronic kidney disease, stage 3 unspecified; F10.20 Alcohol dependence, uncomplicated; Z20.822 Contact with and (suspected) exposure to COVID-19; G25.81 Restless legs syndrome; K21.00 Gastro-esophageal reflux disease with esophagitis, without bleeding; G62.9 Polyneuropathy, unspecified; F43.10 Post-traumatic stress disorder, unspecified; F17.210 Nicotine dependence, cigarettes, uncomplicated; Z71.6 Tobacco abuse counseling; Z56.0 Unemployment, unspecified; Z79.890 Hormone replacement therapy; Z79.899 Other long term (current) drug therapy; Z90.49 Acquired absence of other specified parts of digestive tract; Z87.19 Personal history of other diseases of the digestive system; Z90.710 Acquired absence of both cervix and uterus; Z87.42 Personal history of other diseases of the female genital tract; Z87.448 Personal history of other diseases of urinary system; Z98.890 Other specified postprocedural states; Z82.49 Family history of ischemic heart disease and other diseases of the circulatory system; Z80.7 Family history of other malignant neoplasms of lymphoid, hematopoietic and related tissues; Z81.8 Family history of other mental and behavioral disorders; Z81.1 Family history of alcohol abuse and dependence; Z82.5 Family history of asthma and other chronic lower respiratory diseases
CPT/HCPCS: 36415; 80048; 80053; 80143; 80179; 80306; 80320; 81001; 82075; 82550; 85025; 87635; 93005; 99285

== ENCOUNTER → 2021-10-22 | Outpatient (CLI) | payer MEDICARE ==
--- NOTE | 2021-10-23 07:27 | US ---
EXAMINATION TYPE: US kidneys/renal and bladder DATE OF EXAM: 10/22/2021 COMPARISON: 12/23/2018 CLINICAL HISTORY: N18.32 Chronic kidney disease. No pain. Hx renal cysts. EXAM MEASUREMENTS: Right Kidney: 9.1 x 3.9 x 3.7 cm Left Kidney: 8.9 x 4.3 x 4.4 cm Right Kidney: Echogenic. Cortical thinning. Medial anechoic lesion at hilum = 1.6 x 1.0 cm. Multip le cystic lesions seen with largest lower lateral= 2.1 x 2.1 x 1.9 cm Left Kidney: Echogenic. Cortical thinning. Multiple cystic lesions seen with largest upper lateral = 1.8 x 1.7 x 1.8 cm. Bladder: distended, anechoic Bilateral Jets seen IMPRESSION: 1. Stable bilateral renal cysts with cortical thinning suggesting chronic renal failure.
== END | disposition home or self-care (01) ==
LOC: RADUSWWP 16:13
PROVIDERS: ATTEND Family Medicine
DX: N28.1 Cyst of kidney, acquired (principal)
CPT/HCPCS: 76770

== ENCOUNTER 2021-10-26 08:56 | Emergency (ER) | payer MEDICARE, OTHER ==
[2021-10-26] MEDS ORDERED: SODIUM CHLORIDE 0.9% 1,000 ML IV STA (09:29)
[2021-10-26] MEDS ORDERED: MORPHINE SULFATE 2 MG/ML SYRINGE IVP STA (09:29)
[2021-10-26] MEDS ORDERED: ONDANSETRON 4 MG/2 ML VIAL IVP STA (09:29)
--- NOTE | 2021-10-26 09:30 | ED ---
General Adult HPI - General Chief complaint: Nausea/Vomiting/Diarrhea Stated complaint: low bp/N&V Source: patient Mode of arrival: ambulatory Limitations: no limitations - History of Present Illness Initial comments: 61-year-old female presents the emergency department with reported nausea, vomiting and abdominal pain. Patient reports to chronic GI issues for which she follows with Dr. Moulton. She is on Protonix and Carafate. States she has been taking her medications as directed however over the past 3 days she has had worsening symptoms. States that she vomits up anything that she tries to eat or drink. She was able to take her pills last night and hold them down. Denies any bloody emesis. No fevers or chills. No sick contacts. States that she recorded her blood pressure at home and it was low. She also admits to constipation. Took a stool softener the past 2 nights however has not had a bowel movement. Denies history of bowel obstruction. The patient is still passing gas. Patient has had a cholecystectomy. She denies any diarrhea. No black or bloody stools. No other alleviating, precipitating or modifying factors - Related Data Home Medications Medication Instructions Recorded Confirmed Pantoprazole Sodium [Protonix] 40 mg PO BID 05/02/19 07/05/21 Sucralfate [Carafate] 1 gm PO AC-BID 02/04/21 07/05/21 Previous Rx's Medication Instructions Recorded Ipratropium-Albuterol Nebulize 3 ml INHALATION RT-QID PRN 14 Days 03/20/21 [Duoneb 0.5 mg-3 mg/3 ml Soln] ml Benztropine Mesylate [Cogentin] 0.5 mg PO BID 30 Days tab 07/09/21 Gabapentin [Neurontin] 600 mg PO Q8H 30 Days cap 07/09/21 Levothyroxine Sodium [Synthroid] 50 mcg PO DAILY@0630 30 Days tab 07/09/21 Lurasidone [Latuda] 60 mg PO DAILY 30 Days tab 07/09/21 Nicotine 14Mg/24Hr Patch [Habitrol] 1 patch TRANSDERM DAILY 30 Days 07/09/21 patch Prazosin [Minipress] 3 mg PO HS 30 Days cap 07/09/21 Venlafaxine HCl ER [Effexor XR] 150 mg PO HS 30 Days 07/09/21 busPIRone HCl [Buspar] 20 mg PO BID 30 Days tab 07/09/21 rOPINIRole HCL [Requip] 0.5 mg PO HS 30 Days tab 07/09/21 Levofloxacin [Levaquin] 750 mg PO DAILY 1 Days #7 tab 10/26/21 metroNIDAZOLE [Flagyl] 500 mg PO TID #21 tab 10/26/21 Allergies Allergy/AdvReac Type Severity Reaction Status Date / Time amoxicillin Allergy Anaphylaxis Verified 10/26/21 09:03 Review of Systems ROS Statement: Those systems with pertinent positive or pertinent negative responses have been documented in the HPI. ROS Other: All systems not noted in ROS Statement are negative. Past Medical History Past Medical History: COPD, GERD/Reflux, Renal Disease, Thyroid Disorder Additional Past Medical History / Comment(s): cysts on (R) kidney. History of Any Multi-Drug Resistant Organisms: None Reported Past Surgical History: Cholecystectomy, Hysterectomy Additional Past Surgical History / Comment(s): parathyroidectomy Past Anesthesia/Blood Transfusion Reactions: No Reported Reaction Past Psychological History: Bipolar Smoking Status: Never smoker Past Alcohol Use History: None Reported Past Drug Use History: Opiates, Prescription Drug Abuse - Past Family History Father Family Medical History: Coronary Artery Disease (CAD) Additional Family Medical History / Comment(s): Father is of blood cancer. Mother Family Medical History: Coronary Artery Disease (CAD) Additional Family Medical History / Comment(s): Mother is living General Exam Limitations: no limitations Course Vital Signs 10/26/21 10/26/21 10/26/21 08:59 10:42 12:54 Temperature 98.9 F 98.8 F Pulse Rate 66 56 L 61 Respiratory 20 18 18 Rate Blood Pressure 99/60 94/56 99/58 O2 Sat by Pulse 97 97 97 Oximetry EKG Findings - EKG Comments: EKG Findings:: EKG demonstrates sinus bradycardia with a ventricular rate of 58. WV interval 192. QRS 112. QTC of 429. No acute ST segment elevations or depressions concerning for ischemic changes Medical Decision Making - Medical Decision Making Upon arrival patient is placed into room 9. Thorough history and physical exam was performed. IV is established and laboratories is or conducted. Patient was given 2 mg of morphine, 4 mg of Zofran and a liter bolus of normal saline. La boratory studies are reviewed and are within normal limits. CT of the abdomen and pelvis demonstrates hyperemic gastric mucosa which may represent gastritis. Circumference of thickening of the rectal/sigmoid colon which may represent colitis. Large stool Birden. The results are discussed the patient. She was given a dose of Levaquin and Flagyl in the emergency department. Patient will be discharged home on antibiotics. I will also give her a bottle of magnesium citrate. Instructed to drink half the bottle. She does not have a bowel movement in 4 hours to drink the other half. Patient does have a follow-up appointment with Dr. Moulton on November 06. She is informed that she needs to have a scope performed because of her mentioned issues. The patient is a new or worsening symptoms she needs to return to the emergency room. Patient agreed with treatment plan she is discharged in stable condition - Lab Data Result diagrams: 10/26/21 10:02 10/26/21 10:02 Lab Results 10/26/21 10/26/21 10/26/21 Range/Units 10:02 10:02 10:02 WBC 9.2 (3.8-10.6) k/uL RBC 4.58 (3.80-5.40) m/uL Hgb 14.6 (11.4-16.0) gm/dL Hct 43.2 (34.0-46.0) % MCV 94.2 (80.0-100.0) fL MCH 31.9 (25.0-35.0) pg MCHC 33.9 (31.0-37.0) g/dL RDW 12.2 (11.5-15.5) % Plt Count 244 (150-450) k/uL MPV 7.4 Neutrophils % 71 % Lymphocytes % 21 % Monocytes % 5 % Eosinophils % 2 % Basophils % 1 % Neutrophils # 6.6 (1.3-7.7) k/uL Lymphocytes # 1.9 (1.0-4.8) k/uL Monocytes # 0.4 (0-1.0) k/uL Eosinophils # 0.2 (0-0.7) k/uL Basophils # 0.0 (0-0.2) k/uL Sodium 139 (137-145) mmol/L Potassium 4.3 (3.5-5.1) mmol/L Chloride 108 H (98-107) mmol/L Carbon Dioxide 24 (22-30) mmol/L Anion Gap 7 mmol/L BUN 16 (7-17) mg/dL Creatinine 1.32 H (0.52-1.04) mg/dL Est GFR (CKD-EPI)AfAm 51 (>60 ml/min/1.73 sqM) Est GFR (CKD-EPI)NonAf 44 (>60 ml/min/1.73 sqM) Glucose 96 (74-99) mg/dL Plasma Lactic Acid Jorge 0.9 (0.7-2.0) mmol/L Calcium 9.8 (8.4-10.2) mg/dL Total Bilirubin 0.5 (0.2-1.3) mg/dL AST 21 (14-36) U/L ALT 15 (4-34) U/L Alkaline Phosphatase 112 (38-126) U/L Total Protein 6.6 (6.3-8.2) g/dL Albumin 4.0 (3.5-5.0) g/dL Lipase 65 (23-300) U/L Urine Color Urine Appearance (Clear) Urine pH (5.0-8.0) Ur Specific [place] (1.001-1.035) Urine Protein (Negative) Urine Glucose (UA) (Negative) Urine Ketones (Negative) Urine Blood (Negative) Urine Nitrite (Negative) Urine Bilirubin (Negative) Urine Urobilinogen (<2.0) mg/dL Ur Leukocyte Esterase (Negative) 10/26/21 Range/Units 10:43 WBC (3.8-10.6) k/uL RBC (3.80-5.40) m/uL Hgb (11.4-16.0) gm/dL Hct (34.0-46.0) % MCV (80.0-100.0) fL MCH (25.0-35.0) pg MCHC (31.0-37.0) g/dL RDW (11.5-15.5) % Plt Count (150-450) k/uL MPV Neutrophils % % Lymphocytes % % Monocytes % % Eosinophils % % Basophils % % Neutrophils # (1.3-7.7) k/uL Lymphocytes # (1.0-4.8) k/uL Monocytes # (0-1.0) k/uL Eosinophils # (0-0.7) k/uL Basophils # (0-0.2) k/uL Sodium (137-145) mmol/L Potassium (3.5-5.1) mmol/L Chloride (98-107) mmol/L Carbon Dioxide (22-30) mmol/L Anion Gap mmol/L BUN (7-17) mg/dL Creatinine (0.52-1.04) mg/dL Est GFR (CKD-EPI)AfAm (>60 ml/min/1.73 sqM) Est GFR (CKD-EPI)NonAf (>60 ml/min/1.73 sqM) Glucose (74-99) mg/dL Plasma Lactic Acid Jorge (0.7-2.0) mmol/L Calcium (8.4-10.2) mg/dL Total Bilirubin (0.2-1.3) mg/dL AST (14-36) U/L ALT (4-34) U/L Alkaline Phosphatase (38-126) U/L Total Protein (6.3-8.2) g/dL Albumin (3.5-5.0) g/dL Lipase (23-300) U/L Urine Color Light Yellow Urine Appearance Clear (Clear) Urine pH 6.0 (5.0-8.0) Ur Specific [place] 1.006 (1.001-1.035) Urine Protein Negative (Negative) Urine Glucose (UA) Negative (Negative) Urine Ketones Negative (Negative) Urine Blood Negative (Negative) Urine Nitrite Negative (Negative) Urine Bilirubin Negative (Negative) Urine Urobilinogen <2.0 (<2.0) mg/dL Ur Leukocyte Esterase Negative (Negative) Disposition Clinical Impression: Constipation, Gastritis, Colitis Disposition: HOME SELF-CARE Condition: Stable Instructions (If sedation given, give patient instructions): Acute Abdominal Pain (ED), Colitis (ED) Additional Instructions: Please drink half of the magnesium citrate. If you do not have a bowel movement in 4 hours, drink the second half. Take antibiotics as directed starting tomorrow. Follow-up with Dr. Bonilla for your scope. Return to the emergency room for any new or worsening symptoms Prescriptions: metroNIDAZOLE [Flagyl] 500 mg PO TID #21 tab Levofloxacin [Levaquin] 750 mg PO DAILY 1 Days #7 tab Is patient prescribed a controlled substance at d/c from ED?: No Referrals: Angel Ansari MD [Primary Care Provider] - 1-2 days Adelita Bonilla MD [STAFF PHYSICIAN] - 1-2 days Time of Disposition: 12:42
[2021-10-26 10:13] LABS: Basophils % (A) 1 %; Eosinophils # (A) 0.2 k/uL (0-0.7); Eosinophils % (A) 2 %; HCT 43.2 % (34.0-46.0); HGB 14.6 gm/dL (11.4-16.0); Lymphocytes # (A) 1.9 k/uL (1.0-4.8); Lymphocytes % (A) 21 %; MCH 31.9 pg (25.0-35.0); MCHC 33.9 g/dL (31.0-37.0); MCV 94.2 fL (80.0-100.0); Mean Platelet Volume 7.4; Monocytes # (A) 0.4 k/uL (0-1.0); Monocytes % (A) 5 %; Neutrophils # (A) 6.6 k/uL (1.3-7.7); Neutrophils % (A) 71 %; Platelet Count 244 k/uL (150-450); RBC 4.58 m/uL (3.80-5.40); RDW 12.2 % (11.5-15.5); WBC 9.2 k/uL (3.8-10.6)
[2021-10-26 10:24] LABS: Calcium 9.8 mg/dL (8.4-10.2); Potassium 4.3 mmol/L (3.5-5.1); Total Bilirubin 0.5 mg/dL (0.2-1.3); Total Protein 6.6 g/dL (6.3-8.2)
[2021-10-26 10:49] VITALS: RESP 18
[2021-10-26 11:12] LABS: Appearance,Urine Clear (Clear); Bilirubin,Urine Negative (Negative); Blood,Urine Negative (Negative); Color,Urine Light Yellow; Glucose,Urine (UA) Negative (Negative); Ketones,Urine Negative (Negative); Leukocyte Esterase,Urine Negative (Negative); Nitrite,Urine Negative (Negative); Protein,Urine Negative (Negative); Specific Gravity,Urine 1.006 (1.001-1.035); Urobilinogen,Urine <2.0 mg/dL (<2.0)
--- NOTE | 2021-10-26 11:43 | CT ---
EXAMINATION TYPE: CT abdomen pelvis w con CT DLP: 722.7 mGycm, Automated exposure control for dose reduction was used. DATE OF EXAM: 10/26/2021 11:25 AM COMPARISON: CT abdomen pelvis most recent from 11/17/2019. CLINICAL INDICATION:Female, 61 years old with history of abdominal pain, vomiting, constipation, Abdo armando pain, vomiting, constipation TECHNIQUE: Standard CT of the abdomen and pelvis following the administration of 100 cc of Isovue 3 00 IV contrast material. Coronal and sagittal reformats were performed. FINDINGS: LOWER CHEST: Posterior dependent subsegmental atelectasis is noted. ABDOMEN LIVER: Unremarkable GALLBLADDER AND BILE DUCTS: Gallbladder is surgically absent with mild intrahepatic and extra hepatic biliary dilatation likely physiologic and a postcholecystectomy change. No evidence of choledocholit hiasis. PANCREAS: Not enlarged main pancreatic duct measuring up to SPLEEN: Unremarkable. ADRENAL GLANDS: Unremarkable. KIDNEYS AND URETERS: No evidence of hydronephrosis or renal calculus. The ureters are unremarkable. Stable bilateral renal cysts. PELVIS BLADDER: Unremarkable REPRODUCTIVE: The uterus is surgically absent. ABDOMEN & PELVIS STOMACH AND BOWEL: There is a hyperemic gastric mucosa noted possibly in the body and antrum suggeste d. There is a large stool burden throughout the colon. Wall thickening of the rectum reina measuring up to 8 mm is present. No evidence of bowel obstruction. PERITONEUM: Trace fluid is seen within the pelvis, no evidence of pneumoperitoneum. VASCULATURE: No evidence of aortic aneurysm. MUSCULOSKELETAL: No acute osseous abnormalities LYMPH NODES: No gross evidence for lymphadenopathy. SOFT TISSUE/ABDOMINAL WALL: Unremarkable IMPRESSION: 1. Hyperemic gastric mucosa loss of vertebral day within the antrum and body which may represent gas tritis. 2. Circumferential thickening of the of the rectal/ sigmoid colon wall represent colitis, consider co lonoscopy if not recently done. 3. Large stool burden throughout the colon. 4. Colonic diverticulosis.
[2021-10-26] MEDS ORDERED: MAGNESIUM CITRATE 296 ML BOTTLE PO ONE (12:06)
[2021-10-26] MEDS ORDERED: metroNIDAZOLE 500 MG TAB PO STA (12:07)
[2021-10-26] MEDS ORDERED: LEVOFLOXACIN 750 MG TAB PO STA (12:08)
[2021-10-26 13:15] VITALS: BP 99/58; PULSE 61; TEMP 98.8
== END 2021-10-26 12:54 | disposition home or self-care (01) ==
LOC: EC 08:56
DX: K52.9 Noninfective gastroenteritis and colitis, unspecified (principal); K59.00 Constipation, unspecified; K29.70 Gastritis, unspecified, without bleeding; K21.9 Gastro-esophageal reflux disease without esophagitis; F31.9 Bipolar disorder, unspecified; J44.9 Chronic obstructive pulmonary disease, unspecified; F11.90 Opioid use, unspecified, uncomplicated; Z79.890 Hormone replacement therapy; Z79.899 Other long term (current) drug therapy
CPT/HCPCS: 36415; 93005; 80053; 83605; 83690; 85025; 81003; 74177; 99284; 96374; 96375; 96361; J2405; J2270; Q9967

== ENCOUNTER 2021-10-28 00:51 | Emergency (ER) | payer MEDICARE, OTHER ==
[2021-10-28 00:58] VITALS: RESP 18; TEMP 98
[2021-10-28 01:55] LABS: Basophils % (A) 0 %; Eosinophils # (A) 0.2 k/uL (0-0.7); Eosinophils % (A) 2 %; HCT 42.6 % (34.0-46.0); HGB 14.7 gm/dL (11.4-16.0); Lymphocytes # (A) 1.9 k/uL (1.0-4.8); Lymphocytes % (A) 22 %; MCH 32.6 pg (25.0-35.0); MCHC 34.6 g/dL (31.0-37.0); Mean Platelet Volume 7.5; Monocytes # (A) 0.6 k/uL (0-1.0); Monocytes % (A) 7 %; Neutrophils % (A) 68 %; Platelet Count 231 k/uL (150-450); RBC 4.53 m/uL (3.80-5.40); RDW 12.3 % (11.5-15.5); WBC 8.8 k/uL (3.8-10.6)
[2021-10-28 02:22] LABS: Albumin 3.9 g/dL (3.5-5.0); Calcium 9.9 mg/dL (8.4-10.2); Potassium 4.1 mmol/L (3.5-5.1); Total Bilirubin 0.3 mg/dL (0.2-1.3); Total Protein 6.4 g/dL (6.3-8.2)
[2021-10-28] MEDS ORDERED: SODIUM CHLORIDE 0.9% 1,000 ML IV ONE (04:09)
--- NOTE | 2021-10-28 04:10 | ED ---
Abdominal Pain HPI - General Chief Complaint: Abdominal Pain Stated Complaint: Abd Pain Time Seen by Provider: 10/28/21 01:07 Source: patient, EMS Mode of arrival: EMS - History of Present Illness Initial Comments: This patient is a 61-year-old woman who presents to have reevaluation for constipation type abdominal pain. She indicates diffuse intermittent cramping. She had been seen here yesterday for the same. She states she has not had a bowel movement 7 days now. After she had left yesterday she was given some magnesium citrate. She states that she took that and it did not give her any relief from the constipation there was no bowel movement. Patient denies nausea or vomiting. She has not had an increase in pain. MD Complaint: abdominal pain -: days(s) Location: diffuse Radiation: none Migration to: no migration Severity: moderate Quality: cramping Consistency: intermittent Improves With: nothing Worsens With: nothing Associated Symptoms: constipation - Related Data Home Medications Medication Instructions Recorded Confirmed Pantoprazole Sodium [Protonix] 40 mg PO BID 05/02/19 07/05/21 Sucralfate [Carafate] 1 gm PO AC-BID 02/04/21 07/05/21 Previous Rx's Medication Instructions Recorded Ipratropium-Albuterol Nebulize 3 ml INHALATION RT-QID PRN 14 Days 03/20/21 [Duoneb 0.5 mg-3 mg/3 ml Soln] ml Benztropine Mesylate [Cogentin] 0.5 mg PO BID 30 Days tab 07/09/21 Gabapentin [Neurontin] 600 mg PO Q8H 30 Days cap 07/09/21 Levothyroxine Sodium [Synthroid] 50 mcg PO DAILY@0630 30 Days tab 07/09/21 Lurasidone [Latuda] 60 mg PO DAILY 30 Days tab 07/09/21 Nicotine 14Mg/24Hr Patch [Habitrol] 1 patch TRANSDERM DAILY 30 Days 07/09/21 patch Prazosin [Minipress] 3 mg PO HS 30 Days cap 07/09/21 Venlafaxine HCl ER [Effexor XR] 150 mg PO HS 30 Days 07/09/21 busPIRone HCl [Buspar] 20 mg PO BID 30 Days tab 07/09/21 rOPINIRole HCL [Requip] 0.5 mg PO HS 30 Days tab 07/09/21 Levofloxacin [Levaquin] 750 mg PO DAILY 1 Days #7 tab 10/26/21 metroNIDAZOLE [Flagyl] 500 mg PO TID #21 tab 10/26/21 Allergies Allergy/AdvReac Type Severity Reaction Status Date / Time amoxicillin Allergy Anaphylaxis Verified 10/26/21 09:03 Review of Systems ROS Statement: Those systems with pertinent positive or pertinent negative responses have been documented in the HPI. ROS Other: All systems not noted in ROS Statement are negative. Constitutional: Denies: fever, chills Respiratory: Denies: cough, dyspnea Cardiovascular: Denies: chest pain, palpitations Gastrointestinal: Reports: abdominal pain, constipation. Denies: nausea, vomiting, diarrhea, melena, hematochezia Genitourinary: Denies: dysuria, hematuria Musculoskeletal: Denies: back pain Skin: Denies: rash Neurological: Denies: headache, weakness Past Medical History Past Medical History: COPD, GERD/Reflux, Renal Disease, Thyroid Disorder Additional Past Medical History / Comment(s): cysts on (R) kidney. History of Any Multi-Drug Resistant Organisms: None Reported Past Surgical History: Cholecystectomy, Hysterectomy Additional Past Surgical History / Comment(s): parathyroidectomy Past Anesthesia/Blood Transfusion Reactions: No Reported Reaction Past Psychological History: Bipolar Smoking Status: Never smoker Past Alcohol Use History: None Reported Past Drug Use History: Opiates, Prescription Drug Abuse - Past Family History Father Family Medical History: Coronary Artery Disease (CAD) Additional Family Medical History / Comment(s): Father is of blood cancer. Mother Family Medical History: Coronary Artery Disease (CAD) Additional Family Medical History / Comment(s): Mother is living General Exam General appearance: alert, in no apparent distress Head exam: Present: atraumatic, normocephalic Eye exam: Present: normal appearance. Absent: scleral icterus, conjunctival injection Neck exam: Present: normal inspection Respiratory exam: Present: normal lung sounds bilaterally. Absent: respiratory distress, wheezes, rales, rhonchi, stridor Cardiovascular Exam: Present: regular rate, normal rhythm, normal heart sounds. Absent: systolic murmur, diastolic murmur, rubs, gallop GI/Abdominal exam: Present: soft, hyperactive bowel sounds. Absent: distended, tenderness, guarding, rebound, rigid, mass, pulsatile mass, hernia Extremities exam: Present: normal inspection, normal capillary refill. Absent: pedal edema, calf tenderness Back exam: Present: normal inspection. Absent: CVA tenderness (R), CVA tenderness (L) Neurological exam: Present: alert Skin exam: Present: warm, dry, intact, normal color. Absent: rash Course Vital Signs 10/28/21 10/28/21 00:53 06:07 Temperature 98 F Pulse Rate 58 L 60 Respiratory 18 18 Rate Blood Pressure 92/51 100/68 O2 Sat by Pulse 96 98 Oximetry Medical Decision Making - Medical Decision Making With the patient returning second visit for constipation, I did recommend that she have enema here for relief of her symptoms. The patient is however change her mind and said that she wants to try another oral medication to use at home. She is given GoLYTELY to use with instructions to return if there is any increase in her pain if she has any nausea or vomiting. If she stops having flatus or if there is no bowel movement. - Lab Data Result diagrams: 10/28/21 01:45 10/28/21 01:45 Lab Results 10/28/21 10/28/21 10/28/21 Range/Units 01:45 01:45 01:45 WBC 8.8 (3.8-10.6) k/uL RBC 4.53 (3.80-5.40) m/uL Hgb 14.7 (11.4-16.0) gm/dL Hct 42.6 (34.0-46.0) % MCV 94.0 (80.0-100.0) fL MCH 32.6 (25.0-35.0) pg MCHC 34.6 (31.0-37.0) g/dL RDW 12.3 (11.5-15.5) % Plt Count 231 (150-450) k/uL MPV 7.5 Neutrophils % 68 % Lymphocytes % 22 % Monocytes % 7 % Eosinophils % 2 % Basophils % 0 % Neutrophils # 6.0 (1.3-7.7) k/uL Lymphocytes # 1.9 (1.0-4.8) k/uL Monocytes # 0.6 (0-1.0) k/uL Eosinophils # 0.2 (0-0.7) k/uL Basophils # 0.0 (0-0.2) k/uL Sodium 137 (137-145) mmol/L Potassium 4.1 (3.5-5.1) mmol/L Chloride 105 (98-107) mmol/L Carbon Dioxide 29 (22-30) mmol/L Anion Gap 3 mmol/L BUN 16 (7-17) mg/dL Creatinine 1.22 H (0.52-1.04) mg/dL Est GFR (CKD-EPI)AfAm 56 (>60 ml/min/1.73 sqM) Est GFR (CKD-EPI)NonAf 48 (>60 ml/min/1.73 sqM) Glucose 102 H (74-99) mg/dL Calcium 9.9 (8.4-10.2) mg/dL Total Bilirubin 0.3 (0.2-1.3) mg/dL AST 23 (14-36) U/L ALT 16 (4-34) U/L Alkaline Phosphatase 117 (38-126) U/L Troponin I <0.012 (0.000-0.034) ng/mL Total Protein 6.4 (6.3-8.2) g/dL Albumin 3.9 (3.5-5.0) g/dL Amylase 101 (30-110) U/L Lipase 97 (23-300) U/L - EKG Data -: EKG Interpreted by Ct EKG shows normal: sinus rhythm, axis (Normal), intervals (Normal), QRS complexes (Incomplete right bundle branch block pattern), ST-T waves Rate: bradycardia (Rate 57 bpm) Disposition Clinical Impression: Constipation Disposition: HOME SELF-CARE Condition: Good Instructions (If sedation given, give patient instructions): Constipation (ED) Is patient prescribed a controlled substance at d/c from ED?: No Referrals: Angel Ansari MD [Primary Care Provider] - 1-2 days Adelita Bonilla MD [STAFF PHYSICIAN] - 1-2 days
[2021-10-28] MEDS ORDERED: PEG 3350-NA SULF,BICARB,CL/KCL 4,000 ML BOTTLE PO ONE (04:30)
[2021-10-28] MEDS ORDERED: ONDANSETRON ODT 4 MG TAB PO STA (05:24)
[2021-10-28 06:07] VITALS: BP 100/68; PULSE 60
== END 2021-10-28 06:13 | disposition home or self-care (01) ==
LOC: EC 00:51
DX: K59.00 Constipation, unspecified (principal); J44.9 Chronic obstructive pulmonary disease, unspecified; K21.9 Gastro-esophageal reflux disease without esophagitis; F31.9 Bipolar disorder, unspecified; Z79.890 Hormone replacement therapy; Z79.899 Other long term (current) drug therapy
CPT/HCPCS: 36415; 80053; 82150; 83690; 84484; 85025; 96360; 99284

== ENCOUNTER 2021-11-13 10:19 | Day surgery (SDC) | payer MEDICARE, OTHER ==
[2021-11-04 15:23] VITALS: BMI 25.4
[2021-11-13] MEDS ORDERED: LACTATED RINGERS 1,000 ML IV ONE (10:43)
[2021-11-13 10:45] VITALS: TEMP 97.9
[2021-11-13] MEDS ORDERED: LIDOCAINE 1% INJ 10MG/ML (20 ML MDV) ONE (10:49)
[2021-11-13] MEDS ORDERED: PROPOFOL 10 MG/ML 20 ML VIAL IV ONE (10:49)
--- NOTE | 2021-11-13 11:06 | P.PCN ---
Date of Procedure: 11/13/21 Procedure(s) Performed: Brief history: Patient is a pleasant 61-year-old white female scheduled for an elective upper endoscopy as well as colonoscopy as a part of evaluation of GERD and change in bowel habits. She started having severe constipation for the last 2 weeks' duration to the emergency room twice and CAT scan was unremarkable. Procedure performed: Esophagogastroduodenoscopy with biopsy Colonoscopy Preoperative diagnosis: GERD Change in bowel habits Anesthesia: MAC Procedure: After informed consent was obtained from the patient was brought into the endoscopy unit and IV sedation was administered by anesthesia under continuous monitoring. Initially upper endoscopy was done. The Olympus GF 160 video endoscope was inserted inserted into the mouth and esophagus intubated without any difficulty and was gradually advanced into the stomach and duodenum and carefully examined. The bulb and second part of the duodenum appeared normal. The scope was then withdrawn into the stomach adequately insufflated with air and upon careful examination the antrum had mild antral gastritis especially in the prepyloric area which was biopsied. The body, cardia and fundus appeared normal. The scope was then withdrawn into the esophagus. The GE junction was located at 40 cm to the incisors. It appeared regular wit2 superficial erosions consistent with LA grade B reflux esophagitisRest of the esophagus appeared normal. Patient tolerated the procedure well. At this time the patient continued to remain sedation. Initial digital rectal examination was normal. Olympus CF 160 video colonoscope was then inserted into the rectum and gradually advanced to the cecum without any difficulty. Careful examination was performed as the scope was gradually being withdrawn. The prep wasfair.The cecum, ascending colon, transverse colon, descending colon, sigmoid colon and rectum appeared normal. Retroflexion was performed in the rectum and no lesions were noted. Patient tolerated the procedure well. Impression: 1. Upper endoscopy revealed mild antral gastritis around the prepyloric area and LA grade aBreflux esophagitis 2. Colonoscopy was within normal limits with no evidence of colitis or colorectal neoplasia Recommendations: Findings of this examination were discussed with the patient as well as her family. She was advised to follow with the biopsy results. Continue with MiraLAX 17 g twice daily and a high-fiber diet. Recommend repeat colonoscopy in 10 years.
[2021-11-13 11:14] VITALS: RESP 16
[2021-11-13 11:26] VITALS: BP 100/63; PULSE 66
== END 2021-11-13 12:07 | disposition home or self-care (01) ==
LOC: ORWHC2ENDO 10:19
PROVIDERS: ATTEND Internal Medicine Gastroenterology
DX: K29.50 Unspecified chronic gastritis without bleeding (principal); K31.A0 Gastric intestinal metaplasia, unspecified; K21.00 Gastro-esophageal reflux disease with esophagitis, without bleeding; E07.9 Disorder of thyroid, unspecified; F32.A Depression, unspecified; Z90.710 Acquired absence of both cervix and uterus; F17.210 Nicotine dependence, cigarettes, uncomplicated; Z90.49 Acquired absence of other specified parts of digestive tract; E89.2 Postprocedural hypoparathyroidism; Z79.890 Hormone replacement therapy; Z79.899 Other long term (current) drug therapy; Z88.0 Allergy status to penicillin
CPT/HCPCS: 88305; 88342; 45378; 43239; J2001; J2704

== ENCOUNTER 2021-12-02 11:15 | Emergency (ER) | payer MEDICARE, OTHER ==
[2021-12-02 11:19] VITALS: BP 125/68; TEMP 97.8
--- NOTE | 2021-12-02 11:27 | ED ---
General Adult HPI - General Chief complaint: Abdominal Pain Stated complaint: constipation Time Seen by Provider: 12/02/21 11:23 Source: patient Mode of arrival: ambulatory Limitations: no limitations - History of Present Illness Initial comments: This 61-year-old female presents emergency Department with abdominal cramping and constipation for one week. Patient states her last bowel movement was 7 days ago. Patient does use opiates and benzodiazepines daily along with alcohol weekly. Last couple days she has had increased abdominal cramping that comes and goes. Patient states it happened a few weeks ago where she was prescribed magnesium citrate which did not work for her so she returned and was given GoLYTELY which worked very well and she states she would like that again. Patient states she's also been experiencing some nausea and did vomit 1 time yesterday. Patient states she had a colonoscopy 2 weeks ago and an upper endoscopy scope which she has a follow-up appointment for on December 17. Patient describes her pain as cramping and is rated 7/10. Patient states she did start taking MiraLAX 2 days ago which has not helped. Patient states she has been able to pass gas over the last week but denies any bowel movement. She states her bowel movements have been hard over the last few weeks. Patient states she has been eating and drinking as normal but does have a little bit less of an appetite. Patient denies any chest pain, shortness of breath, headache, visual changes, dizziness, fever. Patient denies any hemoptysis or changes in her urine. - Related Data Home Medications Medication Instructions Recorded Confirmed Pantoprazole Sodium [Protonix] 40 mg PO BID 05/02/19 11/04/21 Sucralfate [Carafate] 1 gm PO AC-BID 02/04/21 11/04/21 Gabapentin [Neurontin] 600 mg PO TID 11/04/21 11/12/21 Ipratropium-Albuterol Nebulize 3 ml INHALATION BID 11/04/21 11/12/21 [Duoneb 0.5 mg-3 mg/3 ml Soln] Venlafaxine HCl ER [Effexor XR] 150 mg PO DAILY 11/04/21 11/04/21 Ziprasidone [Geodon] 20 mg PO BID 11/04/21 11/12/21 traZODone HCL 25 mg PO HS 11/04/21 11/12/21 Pantoprazole Sodium [Protonix] 40 mg PO BID 11/12/21 11/12/21 Venlafaxine HCl [Effexor XR] 150 mg PO DAILY 11/12/21 11/12/21 cloNIDine HCL [Catapres] 0.1 mg PO QID 11/12/21 11/12/21 lamoTRIgine [LaMICtal] 25 mg PO BID 11/12/21 11/12/21 ondansetron HCL [Zofran] 8 mg PO Q8HR PRN 11/12/21 11/12/21 Previous Rx's Medication Instructions Recorded Levothyroxine Sodium [Synthroid] 50 mcg PO DAILY@0630 30 Days tab 07/09/21 Prazosin [Minipress] 3 mg PO HS 30 Days cap 07/09/21 rOPINIRole HCL [Requip] 0.5 mg PO HS 30 Days tab 07/09/21 Allergies Allergy/AdvReac Type Severity Reaction Status Date / Time amoxicillin Allergy Anaphylaxis Verified 12/02/21 11:18 Review of Systems ROS Statement: Those systems with pertinent positive or pertinent negative responses have been documented in the HPI. ROS Other: All systems not noted in ROS Statement are negative. Past Medical History Past Medical History: COPD, GERD/Reflux, Renal Disease, Thyroid Disorder Additional Past Medical History / Comment(s): cysts on (R) kidney. PARATHYROID REMOVED, NAUSEA, CONSTIPATION, History of Any Multi-Drug Resistant Organisms: None Reported Past Surgical History: Cholecystectomy, Hysterectomy Additional Past Surgical History / Comment(s): parathyroidectomy Past Anesthesia/Blood Transfusion Reactions: No Reported Reaction Additional Past Anesthesia/Blood Transfusion Reaction / Comment(s): "Have woken up during surgery before" COLONOSCOPY AND EGD " Past Psychological History: Bipolar Smoking Status: Current every day smoker Past Alcohol Use History: None Reported Past Drug Use History: None Reported - Past Family History Father Family Medical History: Cancer, Coronary Artery Disease (CAD) Additional Family Medical History / Comment(s): Father is of blood cancer. Mother Family Medical History: Coronary Artery Disease (CAD) Additional Family Medical History / Comment(s): KIDNEY DISEASE Son(s) Family Medical History: Cancer Additional Family Medical History / Comment(s): Brain tumor - . Sister(s) Family Medical History: Cancer Additional Family Medical History / Comment(s): Breast cancer. General Exam Limitations: no limitations General appearance: alert, in no apparent distress Head exam: Present: atraumatic, normocephalic Eye exam: Present: normal appearance, PERRL, EOMI Pupils: Present: normal accommodation ENT exam: Present: mucous membranes moist Neck exam: Present: full ROM Respiratory exam: Present: normal lung sounds bilaterally. Absent: respiratory distress, wheezes, rales, rhonchi, stridor Cardiovascular Exam: Present: regular rate, normal rhythm, normal heart sounds. Absent: systolic murmur, diastolic murmur, rubs, gallop, clicks GI/Abdominal exam: Present: soft, tenderness (Diffuse tenderness in all quadrants), normal bowel sounds. Absent: distended, guarding, rebound, rigid Rectal exam: Present: other (Patient did refuse external or internal exam. I did explain to patient regarding fecal impaction and she stated she did not want this exam done. Patient did refuse enema or fecal disimpaction.) Extremities exam: Present: full ROM, normal capillary refill. Absent: tenderness, pedal edema, joint swelling, calf tenderness Back exam: Present: normal inspection, full ROM. Absent: CVA tenderness (R), CVA tenderness (L), paraspinal tenderness, vertebral tenderness Neurological exam: Present: alert, oriented X3, CN II-XII intact Psychiatric exam: Present: normal affect, normal mood Skin exam: Present: warm, dry, intact, normal color. Absent: rash Course Vital Signs 12/02/21 11:16 Temperature 97.8 F Pulse Rate 59 L Respiratory 18 Rate Blood Pressure 125/68 O2 Sat by Pulse 98 Oximetry EKG Findings - EKG Comments: EKG Findings:: EKG impression: Sinus bradycardia. Ventricular rate 49 beats per minute. CO interval 181. QRS duration 107. QT/QTc 453/422 Medical Decision Making - Medical Decision Making This 61-year-old female presents emergency Department with constipation. Labs unremarkable. EKG without any acute abnormalities. Urine unremarkable. KUB did reveal enteritis or ileus. I did call and speak to Dr. Shore who stated he did not want patient admitted to the hospital and instructed me to give GoLYTELY and have patient follow-up with him tomorrow. Patient verbally agreed to plan and did request to be discharged and stated she would return with any n ew or worsening symptoms. I did prescribe GoLYTELY and gave instructions patient. Strict return precautions were discussed. Informed patient to return to the ER with any fever, nausea, vomiting or being unable to pass flatulence or if GoLytely does not work. Patient informed to follow-up with primary care provider tomorrow. Patient verbally agreed to plan. Patient sent home in stable condition. Case discussed with my attending,Dr. Lerner. - Lab Data Result diagrams: 12/02/21 12:13 12/02/21 12:13 Lab Results 12/02/21 12/02/21 12/02/21 Range/Units 12:13 12:13 12:13 WBC 9.6 (3.8-10.6) k/uL RBC 4.39 (3.80-5.40) m/uL Hgb 14.7 (11.4-16.0) gm/dL Hct 42.6 (34.0-46.0) % MCV 97.1 (80.0-100.0) fL MCH 33.5 (25.0-35.0) pg MCHC 34.5 (31.0-37.0) g/dL RDW 12.5 (11.5-15.5) % Plt Count 271 (150-450) k/uL MPV 7.0 Neutrophils % 72 % Lymphocytes % 19 % Monocytes % 5 % Eosinophils % 3 % Basophils % 0 % Neutrophils # 6.9 (1.3-7.7) k/uL Lymphocytes # 1.9 (1.0-4.8) k/uL Monocytes # 0.4 (0-1.0) k/uL Eosinophils # 0.3 (0-0.7) k/uL Basophils # 0.0 (0-0.2) k/uL PT 10.4 (9.0-12.0) sec INR 0.9 (<1.2) APTT 24.9 (22.0-30.0) sec Sodium 138 (137-145) mmol/L Potassium 4.5 (3.5-5.1) mmol/L Chloride 103 (98-107) mmol/L Carbon Dioxide 32 H (22-30) mmol/L Anion Gap 3 mmol/L BUN 19 H (7-17) mg/dL Creatinine 1.32 H (0.52-1.04) mg/dL Est GFR (CKD-EPI)AfAm 51 (>60 ml/min/1.73 sqM) Est GFR (CKD-EPI)NonAf 44 (>60 ml/min/1.73 sqM) Glucose 97 (74-99) mg/dL Plasma Lactic Acid Jorge (0.7-2.0) mmol/L Calcium 9.5 (8.4-10.2) mg/dL Total Bilirubin 0.6 (0.2-1.3) mg/dL AST 23 (14-36) U/L ALT 17 (4-34) U/L Alkaline Phosphatase 109 (38-126) U/L Troponin I (0.000-0.034) ng/mL Total Protein 6.6 (6.3-8.2) g/dL Albumin 4.0 (3.5-5.0) g/dL Lipase 99 (23-300) U/L Urine Color Urine Appearance (Clear) Urine pH (5.0-8.0) Ur Specific [place] (1.001-1.035) Urine Protein (Negative) Urine Glucose (UA) (Negative) Urine Ketones (Negative) Urine Blood (Negative) Urine Nitrite (Negative) Urine Bilirubin (Negative) Urine Urobilinogen (<2.0) mg/dL Ur Leukocyte Esterase (Negative) 12/02/21 12/02/21 12/02/21 Range/Units 12:13 12:13 13:55 WBC (3.8-10.6) k/uL RBC (3.80-5.40) m/uL Hgb (11.4-16.0) gm/dL Hct (34.0-46.0) % MCV (80.0-100.0) fL MCH (25.0-35.0) pg MCHC (31.0-37.0) g/dL RDW (11.5-15.5) % Plt Count (150-450) k/uL MPV Neutrophils % % Lymphocytes % % Monocytes % % Eosinophils % % Basophils % % Neutrophils # (1.3-7.7) k/uL Lymphocytes # (1.0-4.8) k/uL Monocytes # (0-1.0) k/uL Eosinophils # (0-0.7) k/uL Basophils # (0-0.2) k/uL PT (9.0-12.0) sec INR (<1.2) APTT (22.0-30.0) sec Sodium (137-145) mmol/L Potassium (3.5-5.1) mmol/L Chloride (98-107) mmol/L Carbon Dioxide (22-30) mmol/L Anion Gap mmol/L BUN (7-17) mg/dL Creatinine (0.52-1.04) mg/dL Est GFR (CKD-EPI)AfAm (>60 ml/min/1.73 sqM) Est GFR (CKD-EPI)NonAf (>60 ml/min/1.73 sqM) Glucose (74-99) mg/dL Plasma Lactic Acid Jorge 0.8 (0.7-2.0) mmol/L Calcium (8.4-10.2) mg/dL Total Bilirubin (0.2-1.3) mg/dL AST (14-36) U/L ALT (4-34) U/L Alkaline Phosphatase (38-126) U/L Troponin I <0.012 (0.000-0.034) ng/mL Total Protein (6.3-8.2) g/dL Albumin (3.5-5.0) g/dL Lipase (23-300) U/L Urine Color Light Yellow Urine Appearance Clear (Clear) Urine pH 7.5 (5.0-8.0) Ur Specific [place] 1.011 (1.001-1.035) Urine Protein Negative (Negative) Urine Glucose (UA) Negative (Negative) Urine Ketones Negative (Negative) Urine Blood Negative (Negative) Urine Nitrite Negative (Negative) Urine Bilirubin Negative (Negative) Urine Urobilinogen <2.0 (<2.0) mg/dL Ur Leukocyte Esterase Negative (Negative) Disposition Clinical Impression: Constipation Disposition: HOME SELF-CARE Condition: Stable Additional Instructions: Please return to the emergency department with any new, worsening, or concerning symptoms. Please call Dr. Ansari tomorrow morning to set up an appointment for tomorrow. Take Jett as instructed. Is patient prescribed a controlled substance at d/c from ED?: No Referrals: Angel Ansari MD [Primary Care Provider] - 1-2 days Time of Disposition: 14:35
[2021-12-02] MEDS ORDERED: SODIUM CHLORIDE 0.9% 500 ML 500 ML IV STA ×2 (11:39→13:06)
[2021-12-02] MEDS ORDERED: ONDANSETRON 4 MG/2 ML VIAL IVP STA (11:39)
[2021-12-02 12:40] LABS: Basophils % (A) 0 %; Eosinophils # (A) 0.3 k/uL (0-0.7); Eosinophils % (A) 3 %; HCT 42.6 % (34.0-46.0); HGB 14.7 gm/dL (11.4-16.0); Lymphocytes # (A) 1.9 k/uL (1.0-4.8); Lymphocytes % (A) 19 %; MCH 33.5 pg (25.0-35.0); MCHC 34.5 g/dL (31.0-37.0); MCV 97.1 fL (80.0-100.0); Monocytes # (A) 0.4 k/uL (0-1.0); Monocytes % (A) 5 %; Neutrophils # (A) 6.9 k/uL (1.3-7.7); Neutrophils % (A) 72 %; Platelet Count 271 k/uL (150-450); RBC 4.39 m/uL (3.80-5.40); RDW 12.5 % (11.5-15.5); WBC 9.6 k/uL (3.8-10.6)
[2021-12-02 12:50] LABS: INR 0.9 (<1.2); Partial Thromboplastin Time 24.9 sec (22.0-30.0); Prothrombin Time 10.4 sec (9.0-12.0)
[2021-12-02 12:57] LABS: Calcium 9.5 mg/dL (8.4-10.2); Potassium 4.5 mmol/L (3.5-5.1); Total Bilirubin 0.6 mg/dL (0.2-1.3); Total Protein 6.6 g/dL (6.3-8.2)
--- NOTE | 2021-12-02 13:09 | XR ---
KUB HISTORY: Constipation, nausea and pain For KUB and [address] scan 10/26/2021 Surgical clips are present in the right upper quadrant. There is a levoscoliosis centered at the mid lumbar spine. No evident bowel obstruction or pneumoperitoneum. Lung bases are clear. There are air-f luid levels without bowel distention. No pathologic calcification evident. IMPRESSION: Correlate for possible underlying enteritis or ileus. See dictated report CT scan 10/26/19
[2021-12-02 14:22] LABS: Appearance,Urine Clear (Clear); Bilirubin,Urine Negative (Negative); Blood,Urine Negative (Negative); Color,Urine Light Yellow; Glucose,Urine (UA) Negative (Negative); Ketones,Urine Negative (Negative); Leukocyte Esterase,Urine Negative (Negative); Nitrite,Urine Negative (Negative); PH, Urine 7.5 (5.0-8.0); Protein,Urine Negative (Negative); Specific Gravity,Urine 1.011 (1.001-1.035); Urobilinogen,Urine <2.0 mg/dL (<2.0)
[2021-12-02] MEDS ORDERED: PEG 3350-NA SULF,BICARB,CL/KCL 4,000 ML BOTTLE PO ONE (14:45)
[2021-12-02 15:06] VITALS: PULSE 72; RESP 16
== END 2021-12-02 15:15 | disposition home or self-care (01) ==
LOC: EC 11:15
DX: K59.00 Constipation, unspecified (principal); K21.9 Gastro-esophageal reflux disease without esophagitis; F31.9 Bipolar disorder, unspecified; J44.9 Chronic obstructive pulmonary disease, unspecified; F17.200 Nicotine dependence, unspecified, uncomplicated; Z79.890 Hormone replacement therapy; Z79.51 Long term (current) use of inhaled steroids; Z79.899 Other long term (current) drug therapy; Z88.1 Allergy status to other antibiotic agents
CPT/HCPCS: 99284; 96374; 96361; 36415; 93005; 80053; 83605; 83690; 84484; 85025; 85610; 85730; 81003; 74018; J2405

== ENCOUNTER → 2021-12-20 | Outpatient (CLI) | payer MEDICARE ==
--- NOTE | 2021-12-20 10:54 | US ---
EXAMINATION TYPE: US kidneys/renal and bladder DATE OF EXAM: 12/20/2021 COMPARISON: CT abdomen and pelvis October 26, 2021 CLINICAL HISTORY: N18.32 CHRONIC KIDNEY DISEASE, STAGE 3B. CKD EXAM MEASUREMENTS: Right Kidney: 7.3 x 3.6 x 3.8 cm Left Kidney: 9.4 x 3.8 x 4.0 cm Right Kidney: Cystic area inf pole 1.8 x 2.0 x 2.4 cm. Left Kidney: Cystic area inf pole 1.8 x 2.6 x 1.4 cm. Bladder: wnl Bilateral Jets seen: Yes There is no evidence for hydronephrosis at this point in time. No nephrolithiasis is seen. Increased cortical echogenicity with scattered simple-appearing thin-walled cysts of varying size and shape bi laterally identified which correlates with recent CT. Urinary bladder is satisfactorily distended. B ilateral ureteral jets are seen. IMPRESSION: Evidence of chronic medical renal disease. No hydronephrosis seen bilaterally.
== END | disposition home or self-care (01) ==
LOC: RADUSWWP 09:38
PROVIDERS: ATTEND Internal Medicine
DX: N18.32 Chronic kidney disease, stage 3b (principal)
CPT/HCPCS: 76770

== ENCOUNTER 2022-02-28 13:29 | Observation (INO) | payer MEDICARE ==
[2022-02-28 14:20] LABS: Basophils # (A) 0.1 k/uL (0-0.2); Basophils % (A) 1 %; Eosinophils # (A) 0.2 k/uL (0-0.7); Eosinophils % (A) 2 %; HCT 43.5 % (34.0-46.0); HGB 14.3 gm/dL (11.4-16.0); Lymphocytes # (A) 2.4 k/uL (1.0-4.8); Lymphocytes % (A) 23 %; MCH 31.6 pg (25.0-35.0); MCV 95.7 fL (80.0-100.0); Monocytes # (A) 0.6 k/uL (0-1.0); Monocytes % (A) 5 %; Neutrophils # (A) 7.1 k/uL (1.3-7.7); Neutrophils % (A) 68 %; Platelet Count 297 k/uL (150-450); RBC 4.54 m/uL (3.80-5.40); RDW 12.3 % (11.5-15.5); WBC 10.4 k/uL (3.8-10.6)
[2022-02-28 14:35] LABS: Albumin 4.1 g/dL (3.5-5.0); Calcium 9.1 mg/dL (8.4-10.2); Total Bilirubin 0.8 mg/dL (0.2-1.3); Total Protein 6.9 g/dL (6.3-8.2)
[2022-02-28 14:36] LABS: INR 0.9 (<1.2); Partial Thromboplastin Time 24.5 sec (22.0-30.0); Potassium 5.8 mmol/L (3.5-5.1); Prothrombin Time 9.9 sec (9.0-12.0)
[2022-02-28] MEDS ORDERED: SODIUM CHLORIDE 0.9% 1,000 ML IV ONE (15:31)
--- NOTE | 2022-02-28 15:44 | ED ---
General Adult HPI - General Chief complaint: Weakness Stated complaint: Dehydration Time Seen by Provider: 02/28/22 15:18 Source: patient, RN notes reviewed, old records reviewed Mode of arrival: ambulatory Limitations: no limitations - History of Present Illness Initial comments: 62-year-old female presenting with weakness, lethargy. History is limited the patient is difficult to arouse. She is arousable and is maintaining her airway. She will answer some questions. She states that she's been weak for the past several days. She denies chest pain. She reports some mild abdominal discomfort which is typical for the patient. She denies medication overuse, she is on multiple sedating medications. She denies alcohol. She denies focal numbness or weakness. - Related Data Home Medications Medication Instructions Recorded Confirmed Sucralfate [Carafate] 1 gm PO AC-BID 02/04/21 02/28/22 Ipratropium-Albuterol Nebulize 3 ml INHALATION RT-QID PRN 11/04/21 02/28/22 [Duoneb 0.5 mg-3 mg/3 ml Soln] Venlafaxine HCl ER [Effexor XR] 150 mg PO DAILY 11/04/21 02/28/22 Ziprasidone [Geodon] 40 mg PO BID 11/04/21 02/28/22 Pantoprazole Sodium [Protonix] 40 mg PO BID 11/12/21 02/28/22 lamoTRIgine [LaMICtal] 50 mg PO BID 11/12/21 02/28/22 Budesonide/Formoterol Fumarate 2 puff INHALATION RT-BID 02/28/22 02/28/22 [Symbicort 160-4.5 Mcg Inhaler] Gabapentin 600 mg PO TID 02/28/22 02/28/22 Levothyroxine Sodium [Synthroid] 50 mcg PO DAILY 02/28/22 02/28/22 Linaclotide [Linzess] 145 mcg PO DAILY 02/28/22 02/28/22 Ondansetron [Zofran] 4 mg PO Q8HR PRN 02/28/22 02/28/22 Venlafaxine HCl [Effexor XR] 37.5 mg PO DAILY 02/28/22 02/28/22 cloNIDine HCL 0.2 mg PO DAILY PRN 02/28/22 02/28/22 cloNIDine HCL 0.4 mg PO HS 02/28/22 02/28/22 rOPINIRole HCL [Requip] 0.5 mg PO HS 02/28/22 02/28/22 traZODone HCL 100 mg PO HS 02/28/22 02/28/22 Allergies Allergy/AdvReac Type Severity Reaction Status Date / Time amoxicillin Allergy Anaphylaxis Verified 02/28/22 17:50 Review of Systems ROS Statement: Those systems with pertinent positive or pertinent negative responses have been documented in the HPI. ROS Other: All systems not noted in ROS Statement are negative. Past Medical History Past Medical History: COPD, GERD/Reflux, Renal Disease, Thyroid Disorder Additional Past Medical History / Comment(s): cysts on (R) kidney. PARATHYROID REMOVED, NAUSEA, CONSTIPATION, History of Any Multi-Drug Resistant Organisms: None Reported Past Surgical History: Cholecystectomy, Hysterectomy Additional Past Surgical History / Comment(s): parathyroidectomy Past Anesthesia/Blood Transfusion Reactions: No Reported Reaction Additional Past Anesthesia/Blood Transfusion Reaction / Comment(s): "Have woken up during surgery before" COLONOSCOPY AND EGD " Past Psychological History: Bipolar Smoking Status: Current every day smoker Past Alcohol Use History: None Reported Past Drug Use History: None Reported - Past Family History Father Family Medical History: Cancer, Coronary Artery Disease (CAD) Additional Family Medical History / Comment(s): Father is of blood cancer. Mother Family Medical History: Coronary Artery Disease (CAD) Additional Family Medical History / Comment(s): KIDNEY DISEASE Son(s) Family Medical History: Cancer Additional Family Medical History / Comment(s): Brain tumor - . Sister(s) Family Medical History: Cancer Additional Family Medical History / Comment(s): Breast cancer. General Exam Limitations: no limitations General appearance: lethargic Head exam: Present: atraumatic, normocephalic Eye exam: Present: PERRL ENT exam: Present: mucous membranes dry Respiratory exam: Present: normal lung sounds bilaterally. Absent: respiratory distress, wheezes, rales Cardiovascular Exam: Present: normal rhythm, bradycardia GI/Abdominal exam: Present: soft. Absent: distended, tenderness, guarding Extremities exam: Present: normal inspection, normal capillary refill. Absent: pedal edema Neurological exam: Present: alert, oriented X3, CN II-XII intact. Absent: motor sensory deficit Psychiatric exam: Present: flat affect Skin exam: Present: warm, dry, intact. Absent: cyanosis, diaphoretic Course Vital Signs 02/28/22 02/28/22 13:50 15:21 Temperature 97.4 F L Pulse Rate 60 53 L Respiratory 18 14 Rate Blood Pressure 83/57 93/62 O2 Sat by Pulse 98 99 Oximetry Medical Decision Making - Medical Decision Making 62-year-old female with lethargy, weakness, confusion. Patient is nonfocal. She is initially hypotensive but appears very dehydrated. She does list off multiple sedating medications. I have on initial suspicion for possible medication misuse including overtaking her medications. Workup is initiated. She has normal CBC, mild hyperkalemia 5.8. Creatinine is 1.13. Urinalysis negative, urine drug screen negative, alcohol, salicylate, and Tylenol levels are negative. She does appear dehydrated and is not suitable for discharge at this time. She will require an observation period. Dr. Shore will observe overnight. - Lab Data Result diagrams: 02/28/22 14:09 02/28/22 14:09 Lab Results 02/28/22 02/28/22 02/28/22 Range/Units 14:09 14:09 14:09 WBC 10.4 (3.8-10.6) k/uL RBC 4.54 (3.80-5.40) m/uL Hgb 14.3 (11.4-16.0) gm/dL Hct 43.5 (34.0-46.0) % MCV 95.7 (80.0-100.0) fL MCH 31.6 (25.0-35.0) pg MCHC 33.0 (31.0-37.0) g/dL RDW 12.3 (11.5-15.5) % Plt Count 297 (150-450) k/uL MPV 7.0 Neutrophils % 68 % Lymphocytes % 23 % Monocytes % 5 % Eosinophils % 2 % Basophils % 1 % Neutrophils # 7.1 (1.3-7.7) k/uL Lymphocytes # 2.4 (1.0-4.8) k/uL Monocytes # 0.6 (0-1.0) k/uL Eosinophils # 0.2 (0-0.7) k/uL Basophils # 0.1 (0-0.2) k/uL PT 9.9 (9.0-12.0) sec INR 0.9 (<1.2) APTT 24.5 (22.0-30.0) sec VBG pH (7.31-7.41) VBG pCO2 (37-51) mmHg VBG HCO3 (24-28) mmol/L Sodium (137-145) mmol/L Potassium (3.5-5.1) mmol/L Chloride (98-107) mmol/L Carbon Dioxide (22-30) mmol/L Anion Gap mmol/L BUN (7-17) mg/dL Creatinine (0.52-1.04) mg/dL Est GFR (CKD-EPI)AfAm (>60 ml/min/1.73 sqM) Est GFR (CKD-EPI)NonAf (>60 ml/min/1.73 sqM) Glucose (74-99) mg/dL Plasma Lactic Acid Jorge (0.7-2.0) mmol/L Calcium (8.4-10.2) mg/dL Total Bilirubin (0.2-1.3) mg/dL AST (14-36) U/L ALT (4-34) U/L Alkaline Phosphatase (38-126) U/L Troponin I (0.000-0.034) ng/mL Total Protein (6.3-8.2) g/dL Albumin (3.5-5.0) g/dL Urine Color Light Yellow Urine Appearance Clear (Clear) Urine pH 6.5 (5.0-8.0) Ur Specific [place] 1.006 (1.001-1.035) Urine Protein Negative (Negative) Urine Glucose (UA) Negative (Negative) Urine Ketones Negative (Negative) Urine Blood Negative (Negative) Urine Nitrite Negative (Negative) Urine Bilirubin Negative (Negative) Urine Urobilinogen <2.0 (<2.0) mg/dL Ur Leukocyte Esterase Negative (Negative) Salicylates mg/dL Urine Opiates Screen (NotDetected) Ur Oxycodone Screen (NotDetected) Urine Methadone Screen (NotDetected) Ur Propoxyphene Screen (NotDetected) Acetaminophen ug/mL Ur Barbiturates Screen (NotDetected) U Tricyclic Antidepress (NotDetected) Ur Phencyclidine Scrn (NotDetected) Ur Amphetamines Screen (NotDetected) U Methamphetamines Scrn (NotDetected) U Benzodiazepines Scrn (NotDetected) Urine Cocaine Screen (NotDetected) U Marijuana (THC) Screen (NotDetected) Serum Alcohol mg/dL 02/28/22 02/28/22 02/28/22 Range/Units 14:09 14:09 14:09 WBC (3.8-10.6) k/uL RBC (3.80-5.40) m/uL Hgb (11.4-16.0) gm/dL Hct (34.0-46.0) % MCV (80.0-100.0) fL MCH (25.0-35.0) pg MCHC (31.0-37.0) g/dL RDW (11.5-15.5) % Plt Count (150-450) k/uL MPV Neutrophils % % Lymphocytes % % Monocytes % % Eosinophils % % Basophils % % Neutrophils # (1.3-7.7) k/uL Lymphocytes # (1.0-4.8) k/uL Monocytes # (0-1.0) k/uL Eosinophils # (0-0.7) k/uL Basophils # (0-0.2) k/uL PT (9.0-12.0) sec INR (<1.2) APTT (22.0-30.0) sec VBG pH (7.31-7.41) VBG pCO2 (37-51) mmHg VBG HCO3 (24-28) mmol/L Sodium 135 L (137-145) mmol/L Potassium 5.8 H (3.5-5.1) mmol/L Chloride 109 H (98-107) mmol/L Carbon Dioxide 21 L (22-30) mmol/L Anion Gap 5 mmol/L BUN 25 H (7-17) mg/dL Creatinine 1.13 H (0.52-1.04) mg/dL Est GFR (CKD-EPI)AfAm 61 (>60 ml/min/1.73 sqM) Est GFR (CKD-EPI)NonAf 53 (>60 ml/min/1.73 sqM) Glucose 98 (74-99) mg/dL Plasma Lactic Acid Jorge 1.0 (0.7-2.0) mmol/L Calcium 9.1 (8.4-10.2) mg/dL Total Bilirubin 0.8 (0.2-1.3) mg/dL AST 40 H (14-36) U/L ALT 23 (4-34) U/L Alkaline Phosphatase 85 (38-126) U/L Troponin I <0.012 (0.000-0.034) ng/mL Total Protein 6.9 (6.3-8.2) g/dL Albumin 4.1 (3.5-5.0) g/dL Urine Color Urine Appearance (Clear) Urine pH (5.0-8.0) Ur Specific [place] (1.001-1.035) Urine Protein (Negative) Urine Glucose (UA) (Negative) Urine Ketones (Negative) Urine Blood (Negative) Urine Nitrite (Negative) Urine Bilirubin (Negative) Urine Urobilinogen (<2.0) mg/dL Ur Leukocyte Esterase (Negative) Salicylates mg/dL Urine Opiates Screen (NotDetected) Ur Oxycodone Screen (NotDetected) Urine Methadone Screen (NotDetected) Ur Propoxyphene Screen (NotDetected) Acetaminophen ug/mL Ur Barbiturates Screen (NotDetected) U Tricyclic Antidepress (NotDetected) Ur Phencyclidine Scrn (NotDetected) Ur Amphetamines Screen (NotDetected) U Methamphetamines Scrn (NotDetected) U Benzodiazepines Scrn (NotDetected) Urine Cocaine Screen (NotDetected) U Marijuana (THC) Screen (NotDetected) Serum Alcohol mg/dL 02/28/22 02/28/22 02/28/22 Range/Units 15:49 15:49 16:05 WBC (3.8-10.6) k/uL RBC (3.80-5.40) m/uL Hgb (11.4-16.0) gm/dL Hct (34.0-46.0) % MCV (80.0-100.0) fL MCH (25.0-35.0) pg MCHC (31.0-37.0) g/dL RDW (11.5-15.5) % Plt Count (150-450) k/uL MPV Neutrophils % % Lymphocytes % % Monocytes % % Eosinophils % % Basophils % % Neutrophils # (1.3-7.7) k/uL Lymphocytes # (1.0-4.8) k/uL Monocytes # (0-1.0) k/uL Eosinophils # (0-0.7) k/uL Basophils # (0-0.2) k/uL PT (9.0-12.0) sec INR (<1.2) APTT (22.0-30.0) sec VBG pH 7.31 (7.31-7.41) VBG pCO2 50 (37-51) mmHg VBG HCO3 24 (24-28) mmol/L Sodium (137-145) mmol/L Potassium (3.5-5.1) mmol/L Chloride (98-107) mmol/L Carbon Dioxide (22-30) mmol/L Anion Gap mmol/L BUN (7-17) mg/dL Creatinine (0.52-1.04) mg/dL Est GFR (CKD-EPI)AfAm (>60 ml/min/1.73 sqM) Est GFR (CKD-EPI)NonAf (>60 ml/min/1.73 sqM) Glucose (74-99) mg/dL Plasma Lactic Acid Jorge (0.7-2.0) mmol/L Calcium (8.4-10.2) mg/dL Total Bilirubin (0.2-1.3) mg/dL AST (14-36) U/L ALT (4-34) U/L Alkaline Phosphatase (38-126) U/L Troponin I (0.000-0.034) ng/mL Total Protein (6.3-8.2) g/dL Albumin (3.5-5.0) g/dL Urine Color Urine Appearance (Clear) Urine pH (5.0-8.0) Ur Specific [place] (1.001-1.035) Urine Protein (Negative) Urine Glucose (UA) (Negative) Urine Ketones (Negative) Urine Blood (Negative) Urine Nitrite (Negative) Urine Bilirubin (Negative) Urine Urobilinogen (<2.0) mg/dL Ur Leukocyte Esterase (Negative) Salicylates <1.0 mg/dL Urine Opiates Screen Not Detected (NotDetected) Ur Oxycodone Screen Not Detected (NotDetected) Urine Methadone Screen Not Detected (NotDetected) Ur Propoxyphene Screen Not Detected (NotDetected) Acetaminophen <10.0 ug/mL Ur Barbiturates Screen Not Detected (NotDetected) U Tricyclic Antidepress Not Detected (NotDetected) Ur Phencyclidine Scrn Not Detected (NotDetected) Ur Amphetamines Screen Not Detected (NotDetected) U Methamphetamines Scrn Not Detected (NotDetected) U Benzodiazepines Scrn Not Detected (NotDetected) Urine Cocaine Screen Not Detected (NotDetected) U Marijuana (THC) Screen Not Detected (NotDetected) Serum Alcohol <10 mg/dL Disposition Clinical Impression: Drug overdose, Dehydration, AMS (altered mental status) Disposition: ADMITTED IP TO THIS [facility] Condition: Stable Is patient prescribed a controlled substance at d/c from ED?: No Referrals: Angel Ansari MD [Primary Care Provider] - 1-2 days Time of Disposition: 18:12
[2022-02-28 16:20] LABS: Acetaminophen <10.0 ug/mL; Alcohol <10 mg/dL; Salicylate <1.0 mg/dL
[2022-02-28 16:27] LABS: VBG PH 7.31 (7.31-7.41)
[2022-02-28 16:49] LABS: Appearance,Urine Clear (Clear); Bilirubin,Urine Negative (Negative); Blood,Urine Negative (Negative); Color,Urine Light Yellow; Glucose,Urine (UA) Negative (Negative); Ketones,Urine Negative (Negative); Leukocyte Esterase,Urine Negative (Negative); Nitrite,Urine Negative (Negative); PH, Urine 6.5 (5.0-8.0); Protein,Urine Negative (Negative); Specific Gravity,Urine 1.006 (1.001-1.035); Urobilinogen,Urine <2.0 mg/dL (<2.0)
[2022-02-28 16:58] LABS: Amphetamine Screen,Urine Not Detected (NotDetected); Barbiturate Screen,Urine Not Detected (NotDetected); Benzodiazepines Screen,Urine Not Detected (NotDetected); Cocaine Screen,Urine Not Detected (NotDetected); Methadone Screen, Urine Not Detected (NotDetected); Opiate Screen,Urine Not Detected (NotDetected); Oxycodone Screen, Urine Not Detected (NotDetected); Phencyclidine Screen,Urine Not Detected (NotDetected); Tricyclic Antidepressant,Urine Not Detected (NotDetected); Urn Cannabinoid Scrn Not Detected (NotDetected)
--- NOTE | 2022-02-28 17:14 | CT ---
EXAMINATION TYPE: CT brain wo con DATE OF EXAM: 02/28/2022 COMPARISON: 04/18/2021 HISTORY: Weakness CT DLP: 1159.4 mGycm Automated exposure control for dose reduction was used. Ventricles have normal size. There is no mass effect or midline shift. No sign of intracranial hemorr jing. Calvarium is intact. There is normal aeration of the mastoid sinuses. Skull base is intact. IMPRESSION: Negative unenhanced head CT scan. No change.
[2022-02-28] MEDS ORDERED: SODIUM CHLORIDE 0.9% 500 ML 500 ML IV ONE (17:28)
--- NOTE | 2022-02-28 17:43 | XR ---
EXAMINATION TYPE: XR chest 2V DATE OF EXAM: 02/28/2022 COMPARISON: 03/26/2021 HISTORY: Syncope. Weakness TECHNIQUE: FINDINGS: There is no heart failure nor confluent pneumonic infiltrate. Costophrenic angles are clear . There are no hilar masses. There are chest leads. IMPRESSION: No active cardiopulmonary disease. No change.
[2022-02-28] MEDS ORDERED: NALOXONE 0.4 MG/ML 1 ML VIAL IV PRN (18:09)
[2022-02-28] MEDS ORDERED: ONDANSETRON 4 MG/2 ML VIAL IVP STA (18:23)
[2022-02-28] MEDS ORDERED: ONDANSETRON ODT 4 MG TAB PO STA (23:47)
[2022-02-28] MEDS ORDERED: ACETAMINOPHEN TAB 325 MG TAB PO STA (23:47)
[2022-03-01] MEDS ORDERED: IPRATROPIUM-ALBUTEROL 3 ML NEB INHALATION PRN (07:15)
[2022-03-01] MEDS ORDERED: SUCRALFATE 1 GM TAB PO SCH (07:30)
[2022-03-01] MEDS: SODIUM CHLORIDE 0.9% 1,000 ML IV SCH ×2 (07:34)
[2022-03-01] MEDS ORDERED: SYMBICORT 160-4.5 MCG INHALER INHALATION SCH (08:00)
[2022-03-01 08:37] VITALS: BP 153/75; RESP 16; TEMP 97.8
[2022-03-01] MEDS ORDERED: LEVOTHYROXINE 50 MCG TAB PO SCH (09:00)
[2022-03-01] MEDS ORDERED: PANTOPRAZOLE 40 MG TABLET PO SCH (09:00)
[2022-03-01] MEDS ORDERED: lamoTRIgine 25 MG TAB PO SCH (09:00)
[2022-03-01] MEDS ORDERED: NON FORMULARY DRUG (Linaclotide [Linzess] 145 MCG Capsule) PO SCH (09:00)
[2022-03-01] MEDS ORDERED: GABAPENTIN 300 MG CAP PO SCH (09:00)
[2022-03-01] MEDS ORDERED: ZIPRASIDONE 40 MG CAP PO SCH (09:00)
[2022-03-01] MEDS ORDERED: VENLAFAXINE HCL ER 150 MG CAP PO SCH (09:00)
[2022-03-01 09:36] VITALS: PULSE 60
--- NOTE | 2022-03-01 09:56 | P.DS ---
Providers Date of admission: 02/28/22 18:09 Expected date of discharge: 03/01/22 Attending physician: Olegario Shore Consults: 03/01/22 07:03 Consult Physician Routine Consulting Provider: Sherita Quintero Consult Reason/Comments: psych med management Do you want consulting provider notified?: Yes Primary care physician: Angel Ansari - Discharge Diagnosis(es) (1) Polypharmacy Current Visit: Yes Status: Acute (2) AMS (altered mental status) Current Visit: Yes Status: Acute Hospital Course: awake alert oriented x 3 pt is completely mentally clear Assessment: will se pt in the next 5 days and address all meds Patient Condition at Discharge: Stable Plan - Discharge Summary New Discharge Prescriptions: No Action Ipratropium-Albuterol Nebulize [Duoneb 0.5 mg-3 mg/3 ml Soln] 3 ml INHALATION RT-QID PRN PRN Reason: Shortness Of Breath Gabapentin 600 mg PO TID Venlafaxine HCl [Effexor XR] 37.5 mg PO DAILY traZODone HCL 100 mg PO HS rOPINIRole HCL [Requip] 0.5 mg PO HS cloNIDine HCL 0.4 mg PO HS cloNIDine HCL 0.2 mg PO DAILY PRN PRN Reason: Anxiety Sucralfate [Carafate] 1 gm PO AC-BID Venlafaxine HCl ER [Effexor XR] 150 mg PO DAILY Ziprasidone [Geodon] 40 mg PO BID Pantoprazole Sodium [Protonix] 40 mg PO BID lamoTRIgine [LaMICtal] 50 mg PO BID Ondansetron [Zofran] 4 mg PO Q8HR PRN PRN Reason: Nausea And Vomiting Levothyroxine Sodium [Synthroid] 50 mcg PO DAILY Budesonide/Formoterol Fumarate [Symbicort 160-4.5 Mcg Inhaler] 2 puff INHALATION RT-BID Linaclotide [Linzess] 145 mcg PO DAILY Discharge Medication List Sucralfate [Carafate] 1 gm PO AC-BID 02/04/21 [History] Ipratropium-Albuterol Nebulize [Duoneb 0.5 mg-3 mg/3 ml Soln] 3 ml INHALATION RT-QID PRN 11/04/21 [History] Venlafaxine HCl ER [Effexor XR] 150 mg PO DAILY 11/04/21 [History] Ziprasidone [Geodon] 40 mg PO BID 11/04/21 [History] Pantoprazole Sodium [Protonix] 40 mg PO BID 11/12/21 [History] lamoTRIgine [LaMICtal] 50 mg PO BID 11/12/21 [History] Budesonide/Formoterol Fumarate [Symbicort 160-4.5 Mcg Inhaler] 2 puff INHALATION RT-BID 02/28/22 [History] Gabapentin 600 mg PO TID 02/28/22 [History] Levothyroxine Sodium [Synthroid] 50 mcg PO DAILY 02/28/22 [History] Linaclotide [Linzess] 145 mcg PO DAILY 02/28/22 [History] Ondansetron [Zofran] 4 mg PO Q8HR PRN 02/28/22 [History] Venlafaxine HCl [Effexor XR] 37.5 mg PO DAILY 02/28/22 [History] cloNIDine HCL 0.2 mg PO DAILY PRN 02/28/22 [History] cloNIDine HCL 0.4 mg PO HS 02/28/22 [History] rOPINIRole HCL [Requip] 0.5 mg PO HS 02/28/22 [History] traZODone HCL 100 mg PO HS 02/28/22 [History] Follow up Appointment(s)/Referral(s): Angel Ansari MD [Primary Care Provider] - 1-2 days
--- NOTE | 2022-03-01 10:45 | P.HPIM ---
History of Present Illness H&P Date: 03/01/22 Chief Complaint: Mental status change, weakness This 62-year-old female presented to the emergency room partially obtunded secondary to polypharmacy, alcohol level was 0, drug screen demonstrated no illicits suspect patient took excess amounts of Klonopin and trazodone presented to the hospital emergency room last night and subsequently cleared by morning will be discharging patient home today we'll reevaluate Thursday next week and readjust and address all meds Review of Systems Ears, nose, mouth and throat: Reports as per HPI Cardiovascular: Reports as per HPI Respiratory: Reports as per HPI Gastrointestinal: Reports as per HPI Genitourinary: Reports as per HPI Menstruation: Reports as per HPI Musculoskeletal: Reports as per HPI Integumentary: Reports as per HPI Neurological: Reports as per HPI Psychiatric: Reports as per HPI Endocrine: Reports as per HPI Hematologic/Lymphatic: Reports as per HPI Allergic/Immunologic: Reports as per HPI Past Medical History Past Medical History: COPD, GERD/Reflux, Renal Disease, Thyroid Disorder Additional Past Medical History / Comment(s): cysts on (R) kidney. PARATHYROID REMOVED, NAUSEA, CONSTIPATION, History of Any Multi-Drug Resistant Organisms: None Reported Past Surgical History: Cholecystectomy, Hysterectomy Additional Past Surgical History / Comment(s): parathyroidectomy Past Anesthesia/Blood Transfusion Reactions: No Reported Reaction Additional Past Anesthesia/Blood Transfusion Reaction / Comment(s): "Have woken up during surgery before" COLONOSCOPY AND EGD " Past Psychological History: Bipolar Additional Psychological History / Comment(s): Pt resides with her spouse. Smoking Status: Current every day smoker Past Alcohol Use History: None Reported Additional Past Alcohol Use History / Comment(s): Pt started smoking in 1976 SMOKES 1/2 PPD Past Drug Use History: None Reported Additional Drug Use History / Comment(s): PAST HISTORY 2020 - Past Family History Father Family Medical History: Cancer, Coronary Artery Disease (CAD) Additional Family Medical History / Comment(s): Father is of blood cancer. Mother Family Medical History: Coronary Artery Disease (CAD) Additional Family Medical History / Comment(s): KIDNEY DISEASE Son(s) Family Medical History: Cancer Additional Family Medical History / Comment(s): Brain tumor - . Sister(s) Family Medical History: Cancer Additional Family Medical History / Comment(s): Breast cancer. Medications and Allergies Home Medications Medication Instructions Recorded Confirmed Type Sucralfate [Carafate] 1 gm PO AC-BID 02/04/21 02/28/22 History Ipratropium-Albuterol Nebulize 3 ml INHALATION RT-QID PRN 11/04/21 02/28/22 History [Duoneb 0.5 mg-3 mg/3 ml Soln] Venlafaxine HCl ER [Effexor XR] 150 mg PO DAILY 11/04/21 02/28/22 History Ziprasidone [Geodon] 40 mg PO BID 11/04/21 02/28/22 History Pantoprazole Sodium [Protonix] 40 mg PO BID 11/12/21 02/28/22 History lamoTRIgine [LaMICtal] 50 mg PO BID 11/12/21 02/28/22 History Budesonide/Formoterol Fumarate 2 puff INHALATION RT-BID 02/28/22 02/28/22 History [Symbicort 160-4.5 Mcg Inhaler] Gabapentin 600 mg PO TID 02/28/22 02/28/22 History Levothyroxine Sodium [Synthroid] 50 mcg PO DAILY 02/28/22 02/28/22 History Linaclotide [Linzess] 145 mcg PO DAILY 02/28/22 02/28/22 History Ondansetron [Zofran] 4 mg PO Q8HR PRN 02/28/22 02/28/22 History Venlafaxine HCl [Effexor XR] 37.5 mg PO DAILY 02/28/22 02/28/22 History cloNIDine HCL 0.2 mg PO DAILY PRN 02/28/22 02/28/22 History cloNIDine HCL 0.4 mg PO HS 02/28/22 02/28/22 History rOPINIRole HCL [Requip] 0.5 mg PO HS 02/28/22 02/28/22 History traZODone HCL 100 mg PO HS 02/28/22 02/28/22 History Allergies Allergy/AdvReac Type Severity Reaction Status Date / Time amoxicillin Allergy Anaphylaxis Verified 02/28/22 17:50 Physical Exam Osteopathic Statement: *. No significant issues noted on an osteopathic structural exam other than those noted in the History and Physical/Consult. Vitals: Vital Signs Temp Pulse Pulse Resp BP BP Pulse Ox 03/01/22 09:43 60 03/01/22 09:33 60 03/01/22 09:19 16 03/01/22 08:36 97.8 F 88 16 153/75 98 03/01/22 05:30 98.1 F 63 18 120/77 96 02/28/22 23:50 98.0 F 60 18 112/72 97 02/28/22 21:55 97.4 F L 67 12 139/81 98 02/28/22 19:28 59 L 14 113/67 98 02/28/22 18:21 52 L 18 140/80 02/28/22 15:21 53 L 14 93/62 99 02/28/22 13:50 97.4 F L 60 18 83/57 98 Intake and Output 02/28/22 03/01/22 03/01/22 22:59 06:59 14:59 Intake Total 120 Balance 120 Intake: Oral 120 Other: Weight 61.235 kg General: [Patient awake, alert and oriented times 3. Patient in no acute distress.] HEENT: [PERRL. EOMI. No pharyngeal erythema or exudate.] Neck: [No adenopathy.] Cardiac: [Heart regular in rate and rhythm. No S3. No S4. No clicks, rubs. No murmur.] Lungs: [Clear to auscultation bilaterally.] Abdomen: [No mass. No organomegaly. Bowel sounds presnt and normoactive in all 4 quadrants.] Extremes: [No edema no cyanosis no claudication normal pulses] : Normal female genitalia Musculoskeletal: [No joint erythema, edema or tenderness.] Skin: [No rash.] Neurologic: [No lateralizing deficits. CN II - XII grossly intact.] Lymphatic: [No adenopathy.] Results CBC & Chem 7: 02/28/22 14:09 02/28/22 14:09 Labs: Abnormal Lab Results - Last 24 Hours (Table) 02/28/22 Range/Units 14:09 Sodium 135 L (137-145) mmol/L Potassium 5.8 H (3.5-5.1) mmol/L Chloride 109 H (98-107) mmol/L Carbon Dioxide 21 L (22-30) mmol/L BUN 25 H (7-17) mg/dL Creatinine 1.13 H (0.52-1.04) mg/dL AST 40 H (14-36) U/L Thrombosis Risk Factor Assmnt - Choose All That Apply Each Risk Factor Represents 2 Points: Age 61-74 years Other congenital or acquired thrombophilia - If yes, enter type in comment: No Thrombosis Risk Factor Assessment Total Risk Factor Score: 2 Thrombosis Risk Factor Assessment Level: Low Risk Assessment and Plan (1) Polypharmacy Current Visit: Yes Status: Acute Code(s): 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
--- NOTE | 2022-03-01 13:05 | P.CN ---
Psychiatric Consult - . Consult date: 03/01/22 Consult:: Per treatment team, the patient is being discharged today and the psychiatry consult is cancelled. Please feel free to contact psychiatry if patient still needs to be seen. 03/01/22 12:53
== END 2022-03-01 13:03 | disposition home or self-care (01) ==
LOC: EC 13:29 → 6NMEDSUR 18:09
PROVIDERS: ADMIT Family Medicine; ATTEND Family Medicine
DX: T50.901A Poisoning by unspecified drugs, medicaments and biological substances, accidental (unintentional), initial encounter (principal); R53.1 Weakness; E86.0 Dehydration; R41.82 Altered mental status, unspecified; R11.0 Nausea; R10.9 Unspecified abdominal pain; I95.9 Hypotension, unspecified; E87.5 Hyperkalemia; J44.9 Chronic obstructive pulmonary disease, unspecified; K21.9 Gastro-esophageal reflux disease without esophagitis; K59.00 Constipation, unspecified; F31.9 Bipolar disorder, unspecified; F17.210 Nicotine dependence, cigarettes, uncomplicated; E89.0 Postprocedural hypothyroidism; N28.1 Cyst of kidney, acquired; Z88.0 Allergy status to penicillin; Z90.49 Acquired absence of other specified parts of digestive tract; Z90.710 Acquired absence of both cervix and uterus; Z79.899 Other long term (current) drug therapy; Z79.51 Long term (current) use of inhaled steroids; Z79.890 Hormone replacement therapy; Z82.49 Family history of ischemic heart disease and other diseases of the circulatory system; Z80.6 Family history of leukemia; Z80.3 Family history of malignant neoplasm of breast; Z84.1 Family history of disorders of kidney and ureter; Z82.0 Family history of epilepsy and other diseases of the nervous system
CPT/HCPCS: 96374; 99285; 36415; 94640 ×2; 80053; 82803; 83605; 84484; 85025; 85610; 85730; 81003; 80306; 80143; 80179; 71046; 70450; G0378 ×2; G0480; J2405; 80320; 93005

== ENCOUNTER → 2022-03-18 | Outpatient (CLI) | payer MEDICARE ==
[2022-03-18 14:39] LABS: HCT 47.4 % (37.2-46.3); HGB 15.3 g/dL (12.0-15.0); MCHC 32.3 g/dL (32.0-37.0); MCV 96.1 fL (80.0-97.0); Mean Platelet Volume 8.9 fL (9.5-12.2); NRBC Per 100 WBC 0 /100 WBCS (0.0-0.0); Platelet Count 293 X 10*3/uL (140-440); RBC 4.93 X 10*6/uL (4.10-5.20); RDW 12.7 % (11.5-14.5); WBC 11.49 X 10*3/uL (4.50-10.00)
[2022-03-18 15:15] LABS: Appearance,Urine Cloudy (Clear); Bilirubin,Urine Negative (Negative); Blood,Urine Negative (Negative); Color,Urine Yellow (Yellow); Ketones,Urine Negative (Negative); Nitrite,Urine Negative (Negative); PH, Urine 6.5 (5.0-8.0); Specific Gravity,Urine 1.016 (1.001-1.030); Urobilinogen,Urine 0.2 (0.2,1.0)
[2022-03-18 15:39] LABS: Bacteria,Urine 2+ /HPF (None Seen)
[2022-03-18 15:47] LABS: Ferritin 48.7 ng/mL (10.0-291.0)
[2022-03-18 17:32] LABS: % Iron Saturation 40.48 (12.00-45.00); African American GFR (CKD) 50.3 (60.0-200.0); Albumin 4.7 g/dL (3.8-4.9); Albumin/Globulin Ratio 1.94 (1.60-3.17); Anion Gap 15.7 mmol/L (10.00-18.00); BUN/Creat Ratio 17.12 Ratio (12.00-20.00); Blood Urea Nitrogen 22.6 mg/dL (9.0-27.0); Calcium 10.7 mg/dL (8.7-10.3); Carbon Dioxide 25.7 mmol/L (20.0-27.5); Globulin 2.4 g/dL (1.6-3.3); Magnesium 2.3 mg/dL (1.5-2.4); Non-African American GFR(CKD) 43.4 (60.0-200.0); Phosphorus 4.1 mg/dL (2.4-5.1); Total Bilirubin 0.4 mg/dL (0.30-1.20); Total Protein 7.1 g/dL (6.2-8.2); Uric Acid 6.2 mg/dL (2.9-7.7)
== END | disposition home or self-care (01) ==
LOC: LABWHC1 07:21
PROVIDERS: ATTEND Internal Medicine
DX: I12.9 Hypertensive chronic kidney disease with stage 1 through stage 4 chronic kidney disease, or unspecified chronic kidney disease (principal); N18.32 Chronic kidney disease, stage 3b; N39.0 Urinary tract infection, site not specified; N25.81 Secondary hyperparathyroidism of renal origin; E55.9 Vitamin D deficiency, unspecified; M10.9 Gout, unspecified; D64.9 Anemia, unspecified
CPT/HCPCS: 36415; 80053; 81001; 82306; 82533; 82728; 83540; 83550; 83735; 83970; 84100; 84550; 85027

== ENCOUNTER → 2022-04-18 | Outpatient (CLI) | payer MEDICARE ==
--- NOTE | 2022-04-18 07:21 | MR ---
EXAMINATION TYPE: MR lumbar spine wo con DATE OF EXAM: 04/18/2022 COMPARISON: CT abdomen and pelvis October 26, 2021 HISTORY: Low back pain for years. TECHNIQUE: Multiplanar, multisequence imaging of the lumbar spine is performed without IV contrast. FINDINGS: Persistent slight levoconvex scoliosis centered at mid lumbar spine. Sagittal images of the lumbar spine show vertebral body heights and alignment to appear satisfactory. Multilevel disc desic cation but the disc space heights are maintained. The conus medullaris is normal in position and sig nal ending superior L2 level. The bone marrow signal intensity is within normal limits. Mild multile horace anterior spurring is present. Axial images at T12-L1, L1-L2, L2-L3, and L3-L4 levels all appear within normal limits. Axial images at L4-L5 level mild facet arthropathy minimally effacing the posterior lateral thecal sa c. Patent bilateral neural foramina. No significant disc herniation. Axial images at L5-S1 level shows mild facet arthropathy with focal central disc protrusion minimally effacing anterior thecal sac. Patent bilateral neural foramina. There are rounded T2 hyperintense lesions of varying size and shape scattered throughout both kidneys with some cortical thinning consistent with product of chronic medical renal disease and associated simple thin-walled cysts. IMPRESSION: Slight scoliotic curvature with mild degenerative changes in the lower lumbar spine as de tailed above.
== END | disposition home or self-care (01) ==
LOC: RADMRIMAIN 06:42
PROVIDERS: ATTEND Nurse Practitioner Family
DX: M47.26 Other spondylosis with radiculopathy, lumbar region (principal); M51.16 Intervertebral disc disorders with radiculopathy, lumbar region
CPT/HCPCS: 72148

== ENCOUNTER 2022-04-24 23:41 | Emergency (ER) | payer MEDICARE ==
[2022-04-25 00:45] LABS: Basophils % (A) 0 %; Eosinophils # (A) 0.1 k/uL (0-0.7); Eosinophils % (A) 1 %; HCT 42.6 % (34.0-46.0); HGB 14.3 gm/dL (11.4-16.0); Lymphocytes # (A) 2.4 k/uL (1.0-4.8); Lymphocytes % (A) 25 %; MCH 31.6 pg (25.0-35.0); MCHC 33.5 g/dL (31.0-37.0); MCV 94.3 fL (80.0-100.0); Mean Platelet Volume 7.3; Monocytes # (A) 0.6 k/uL (0-1.0); Monocytes % (A) 6 %; Neutrophils # (A) 6.5 k/uL (1.3-7.7); Neutrophils % (A) 67 %; Platelet Count 294 k/uL (150-450); RBC 4.52 m/uL (3.80-5.40); RDW 12.2 % (11.5-15.5); WBC 9.7 k/uL (3.8-10.6)
[2022-04-25 01:00] LABS: ALT 16 U/L (4-34); AST 24 U/L (14-36); African American GFR (CKD) 48 (>60 ml/min/1.73 sqM); Albumin 4.3 g/dL (3.5-5.0); Alkaline Phosphatase 118 U/L (38-126); Amylase 118 U/L (30-110); Anion Gap 2 mmol/L; Blood Urea Nitrogen 23 mg/dL (7-17); C Reactive Protein <0.5 mg/dL (<1.0); Calcium 10.1 mg/dL (8.4-10.2); Carbon Dioxide 33 mmol/L (22-30); Chloride 102 mmol/L (98-107); Glucose 117 mg/dL (74-99); Lipase 178 U/L (23-300); Non-African American GFR(CKD) 42 (>60 ml/min/1.73 sqM); Potassium 4.7 mmol/L (3.5-5.1); Sodium 137 mmol/L (137-145); Total Bilirubin 0.3 mg/dL (0.2-1.3); Total Protein 6.9 g/dL (6.3-8.2)
[2022-04-25 01:05] LABS: Appearance,Urine Cloudy (Clear); Bacteria,Urine Rare /hpf; Bilirubin,Urine Negative (Negative); Blood,Urine Negative (Negative); Color,Urine Yellow; Glucose,Urine (UA) Negative (Negative); Hyaline Casts,Urine 8 /lpf (0-2); Ketones,Urine Negative (Negative); Leukocyte Esterase,Urine Negative (Negative); Mucus,Urine Rare /hpf; Nitrite,Urine Negative (Negative); PH, Urine 6.5 (5.0-8.0); Protein,Urine Negative (Negative); RBC,Urine <1 /hpf (0-5); Specific Gravity,Urine 1.016 (1.001-1.035); Squamous Epithelial Cell,Urine 1 /hpf (0-4); Urobilinogen,Urine <2.0 mg/dL (<2.0); WBC,Urine 1 /hpf (0-5)
[2022-04-25 01:27] VITALS: BP 110/68; RESP 16; TEMP 97.6
--- NOTE | 2022-04-25 02:07 | XR ---
EXAMINATION TYPE: XR KUB DATE OF EXAM: 04/25/2022 COMPARISON: 12/02/2021 HISTORY: Abdominal pain TECHNIQUE: 2 views upright FINDINGS: There is no sign of intestinal obstruction or pneumoperitoneum. Fecal pattern is normal. Th ere are clips from cholecystectomy. IMPRESSION: Nonacute abdomen.
--- NOTE | 2022-04-25 02:45 | ED ---
General Adult HPI - General Chief complaint: Abdominal Pain Stated complaint: Abd Pain Time Seen by Provider: 04/25/22 01:31 Source: EMS, RN notes reviewed Mode of arrival: EMS Limitations: no limitations - History of Present Illness Initial comments: 62-year-old female presents to the emergency department for evaluation of abdominal bloating and constipation. Patient states her last bowel movement was 7 days ago. States she has taken MiraLAX, Benefiber, and Dulcolax with no success. States she does take Lynzess as she has a history of constipation. Patient was here in January of this past year for the same complaint and was prescribed Go-Lytely which produced results. Additionally, patient's initial blood pressure was low (80/50). She states this is normal for her and denies feeling dizzy or lightheaded. Upon further review of her medical record, this does not appear to be unusual for her. Denies fever, chills, headache, chest pain, difficulty breathing, diarrhea, or dysuria. - Related Data Home Medications Medication Instructions Recorded Confirmed Sucralfate [Carafate] 1 gm PO AC-BID 02/04/21 02/28/22 Ipratropium-Albuterol Nebulize 3 ml INHALATION RT-QID PRN 11/04/21 02/28/22 [Duoneb 0.5 mg-3 mg/3 ml Soln] Venlafaxine HCl ER [Effexor XR] 150 mg PO DAILY 11/04/21 02/28/22 Ziprasidone [Geodon] 40 mg PO BID 11/04/21 02/28/22 Pantoprazole Sodium [Protonix] 40 mg PO BID 11/12/21 02/28/22 lamoTRIgine [LaMICtal] 50 mg PO BID 11/12/21 02/28/22 Budesonide/Formoterol Fumarate 2 puff INHALATION RT-BID 02/28/22 02/28/22 [Symbicort 160-4.5 Mcg Inhaler] Gabapentin 600 mg PO TID 02/28/22 02/28/22 Levothyroxine Sodium [Synthroid] 50 mcg PO DAILY 02/28/22 02/28/22 Linaclotide [Linzess] 145 mcg PO DAILY 02/28/22 02/28/22 Ondansetron [Zofran] 4 mg PO Q8HR PRN 02/28/22 02/28/22 Venlafaxine HCl [Effexor XR] 37.5 mg PO DAILY 02/28/22 02/28/22 cloNIDine HCL 0.2 mg PO DAILY PRN 02/28/22 02/28/22 cloNIDine HCL 0.4 mg PO HS 02/28/22 02/28/22 rOPINIRole HCL [Requip] 0.5 mg PO HS 02/28/22 02/28/22 traZODone HCL 100 mg PO HS 02/28/22 02/28/22 Allergies Allergy/AdvReac Type Severity Reaction Status Date / Time amoxicillin Allergy Anaphylaxis Verified 04/24/22 23:48 Review of Systems ROS Statement: Those systems with pertinent positive or pertinent negative responses have been documented in the HPI. ROS Other: All systems not noted in ROS Statement are negative. Past Medical History Past Medical History: COPD, GERD/Reflux, Renal Disease, Thyroid Disorder Additional Past Medical History / Comment(s): cysts on (R) kidney. PARATHYROID REMOVED, NAUSEA, CONSTIPATION, History of Any Multi-Drug Resistant Organisms: None Reported Past Surgical History: Cholecystectomy, Hysterectomy Additional Past Surgical History / Comment(s): parathyroidectomy Past Anesthesia/Blood Transfusion Reactions: No Reported Reaction Additional Past Anesthesia/Blood Transfusion Reaction / Comment(s): "Have woken up during surgery before" COLONOSCOPY AND EGD " Past Psychological History: Bipolar Smoking Status: Current every day smoker Past Alcohol Use History: None Reported Past Drug Use History: None Reported - Past Family History Father Family Medical History: Cancer, Coronary Artery Disease (CAD) Additional Family Medical History / Comment(s): Father is of blood cancer. Mother Family Medical History: Coronary Artery Disease (CAD) Additional Family Medical History / Comment(s): KIDNEY DISEASE Son(s) Family Medical History: Cancer Additional Family Medical History / Comment(s): Brain tumor - . Sister(s) Family Medical History: Cancer Additional Family Medical History / Comment(s): Breast cancer. General Exam Limitations: no limitations (Well-developed, well-nourished female in no acute distress. Initial temperature 97.7, pulse 51, respirations 18, blood pressure 8 0/54, pulse ox 98% on room air.) General appearance: alert, in no apparent distress ENT exam: Present: normal exam, normal oropharynx, mucous membranes moist Respiratory exam: Present: normal lung sounds bilaterally. Absent: respiratory distress, wheezes, rales, rhonchi, stridor Cardiovascular Exam: Present: normal rhythm, bradycardia, normal heart sounds. Absent: systolic murmur, diastolic murmur, rubs, gallop, clicks GI/Abdominal exam: Present: soft, tenderness (mild generalized tenderness upon palpation), normal bowel sounds. Absent: distended, guarding, rebound, rigid Back exam: Absent: CVA tenderness (R), CVA tenderness (L) Neurological exam: Present: alert, oriented X3, CN II-XII intact, normal gait Psychiatric exam: Present: normal affect, normal mood Skin exam: Present: warm, dry, intact, normal color. Absent: rash Course Vital Signs 04/24/22 04/25/22 04/25/22 23:44 01:26 03:44 Temperature 97.7 F 97.6 F Pulse Rate 51 L 54 L 56 L Respiratory 18 16 16 Rate Blood Pressure 80/54 110/68 O2 Sat by Pulse 98 97 98 Oximetry Medical Decision Making - Medical Decision Making 62-year-old female with a past medical history of COPD, GERD, chronic kidney disease, and chronic constipation presents to the emergency Department with com plaints of abdominal bloating and discomfort. Upon exam, patient is well- appearing and in no acute distress. She is initially hypotensive, though this is not unusual for her. Recheck of vital signs are stable. X-ray shows normal fecal pattern. Laboratory studies are consistent with baseline. She is encouraged to continue taking her home medications and increase her intake of fluid. She is prescribed mag citrate with instructions on STDs. Encouraged to follow up with her PCP for a recheck this week. Return parameters discussed in detail. Patient verbalizes understanding and agrees with this plan. Attending: Bindu. - Lab Data Result diagrams: 04/25/22 00:34 04/25/22 00:34 Lab Results 04/25/22 04/25/22 04/25/22 Range/Units 00:34 00:34 00:34 WBC 9.7 (3.8-10.6) k/uL RBC 4.52 (3.80-5.40) m/uL Hgb 14.3 (11.4-16.0) gm/dL Hct 42.6 (34.0-46.0) % MCV 94.3 (80.0-100.0) fL MCH 31.6 (25.0-35.0) pg MCHC 33.5 (31.0-37.0) g/dL RDW 12.2 (11.5-15.5) % Plt Count 294 (150-450) k/uL MPV 7.3 Neutrophils % 67 % Lymphocytes % 25 % Monocytes % 6 % Eosinophils % 1 % Basophils % 0 % Neutrophils # 6.5 (1.3-7.7) k/uL Lymphocytes # 2.4 (1.0-4.8) k/uL Monocytes # 0.6 (0-1.0) k/uL Eosinophils # 0.1 (0-0.7) k/uL Basophils # 0.0 (0-0.2) k/uL Sodium 137 (137-145) mmol/L Potassium 4.7 (3.5-5.1) mmol/L Chloride 102 (98-107) mmol/L Carbon Dioxide 33 H (22-30) mmol/L Anion Gap 2 mmol/L BUN 23 H (7-17) mg/dL Creatinine 1.37 H (0.52-1.04) mg/dL Est GFR (CKD-EPI)AfAm 48 (>60 ml/min/1.73 sqM) Est GFR (CKD-EPI)NonAf 42 (>60 ml/min/1.73 sqM) Glucose 117 H (74-99) mg/dL Calcium 10.1 (8.4-10.2) mg/dL Total Bilirubin 0.3 (0.2-1.3) mg/dL AST 24 (14-36) U/L ALT 16 (4-34) U/L Alkaline Phosphatase 118 (38-126) U/L C-Reactive Protein <0.5 (<1.0) mg/dL Total Protein 6.9 (6.3-8.2) g/dL Albumin 4.3 (3.5-5.0) g/dL Amylase 118 H (30-110) U/L Lipase 178 (23-300) U/L Urine Color Yellow Urine Appearance Cloudy H (Clear) Urine pH 6.5 (5.0-8.0) Ur Specific [place] 1.016 (1.001-1.035) Urine Protein Negative (Negative) Urine Glucose (UA) Negative (Negative) Urine Ketones Negative (Negative) Urine Blood Negative (Negative) Urine Nitrite Negative (Negative) Urine Bilirubin Negative (Negative) Urine Urobilinogen <2.0 (<2.0) mg/dL Ur Leukocyte Esterase Negative (Negative) Urine RBC <1 (0-5) /hpf Urine WBC 1 (0-5) /hpf Ur Squamous Epith Cells 1 (0-4) /hpf Urine Bacteria Rare H (None) /hpf Hyaline Casts 8 H (0-2) /lpf Urine Mucus Rare H (None) /hpf - Radiology Data Radiology results: report reviewed, image reviewed KUB x-ray was obtained. Report was reviewed in its entirety. Impression per Dr. Ramey is nonacute abdomen. Disposition Clinical Impression: Abdominal bloating, Constipation Disposition: HOME SELF-CARE Condition: Stable Instructions (If sedation given, give patient instructions): Constipation (ED) Additional Instructions: Continue to increase your intake of water. Drink half the bottle of magnesium citrate tonight before bed. If you do not have results by morning, the drink the remainder of the bottle. It will likely cause abdominal cramping and some discomfort. Continue taking your home medications as prescribed. Follow up with your PCP for a recheck on Thursday. Return to the emergency department with any new, worsening, or concerning symptoms. Is patient prescribed a controlled substance at d/c from ED?: No Referrals: Angel Ansari MD [Primary Care Provider] - 1-2 days Time of Disposition: 03:34
[2022-04-25] MEDS ORDERED: MAGNESIUM CITRATE 296 ML BOTTLE PO ONE (03:31)
[2022-04-25 03:45] VITALS: PULSE 56
== END 2022-04-25 03:45 | disposition home or self-care (01) ==
LOC: EC 23:41
DX: R14.0 Abdominal distension (gaseous) (principal); K59.00 Constipation, unspecified; R10.9 Unspecified abdominal pain; J44.9 Chronic obstructive pulmonary disease, unspecified; K21.9 Gastro-esophageal reflux disease without esophagitis; N18.9 Chronic kidney disease, unspecified; F17.200 Nicotine dependence, unspecified, uncomplicated; E07.9 Disorder of thyroid, unspecified; Z88.0 Allergy status to penicillin; Z79.899 Other long term (current) drug therapy; Z79.51 Long term (current) use of inhaled steroids; Z79.890 Hormone replacement therapy
CPT/HCPCS: 36415; 74018; 80053; 81001; 82150; 83690; 85025; 86140; 99284

== ENCOUNTER → 2022-08-06 | Outpatient (CLI) | payer MEDICARE ==
--- NOTE | 2022-08-06 09:18 | CTL ---
EXAMINATION TYPE: CT Low Dose Lung DATE OF EXAM ORDERED: 08/06/2022 HISTORY: . Lung cancer screening CT DLP: 76.[address] CTDI: 2.6 mGy Automated exposure control for dose reduction was used. SCREENING VISIT: COMPARISON: TECHNIQUE: Low dose computed tomography scan was performed through the chest at 1 mm thick sections a nd reconstructed images in multiple planes at 1 mm and [address] DIAGNOSTIC QUALITY: Satisfactory FINDINGS: A 2 mm left apical lung nodule axial image 10 There is a 6 mm superior segment right lower lobe posterior subpleural nodule. There are additional subpleural 1 to 2 mm nodule seen have a benign appearance. There is a 3 mm nodule superior segment right lower lobe axial image 77. 2 mm nodule anterior segment right upper lobe axial image 140. There is a 3 mm subpleural nodule right upper lobe axial image 126 No consolidative pneumonia or pleural effusion. No pneumothorax. Heart size normal. No sizable pericardial effusion. Aorta normal caliber with mild atherosclerotic ch anges. No significant coronary artery calcification. There is a hypodense lesion which is indeterminate involving the left kidney only partially included in the [id number]. Postcholecystectomy changes are seen and there is hypertrophic and degenerative changes of the spine. No pleural effusion or calcification. No significant pleural thickening. No pneumothorax. IMPRESSION: 1. Multiple 6 mm less pulmonary nodules. CT LUNG RAD AND CT CHEST RECOMMENDATION: Lung-Rad 3 Probably Benign: 6 month follow-up LDCT.
== END | disposition home or self-care (01) ==
LOC: RADCTMAIN 08:10
PROVIDERS: ATTEND Family Medicine
DX: Z12.2 Encounter for screening for malignant neoplasm of respiratory organs (principal); R91.8 Other nonspecific abnormal finding of lung field; Z87.891 Personal history of nicotine dependence
CPT/HCPCS: 71271

== ENCOUNTER → 2022-08-15 | Outpatient (CLI) | payer MEDICARE ==
--- NOTE | 2022-08-15 16:48 | US ---
EXAMINATION TYPE: US venous doppler duplex LE RT DATE OF EXAM: 08/15/2022 4:31 PM COMPARISON: NONE CLINICAL HISTORY: M79.661 PAIN RIGHT LEG R22.42. Patient fell one week ago. Pain and swelling in righ t leg. No hx of DVT. SIDE PERFORMED: Right TECHNIQUE: The lower extremity deep venous system is examined utilizing real time linear array sonog geo with graded compression, doppler sonography and color-flow sonography. VESSELS IMAGED: Common Femoral Vein Deep Femoral Vein Greater Saphenous Vein * Femoral Vein Popliteal Vein Small Saphenous Vein * Proximal Calf Veins (* superficial vessels) Right Leg: No evidence of DVT in veins imaged at this time. IMPRESSION: No sign of deep vein thrombosis in the right leg
== END | disposition home or self-care (01) ==
LOC: RADUSWWP 16:08
PROVIDERS: ATTEND Family Medicine
DX: M79.661 Pain in right lower leg (principal); R22.41 Localized swelling, mass and lump, right lower limb

== ENCOUNTER → 2022-10-15 | Outpatient (CLI) | payer MEDICARE ==
--- NOTE | 2022-10-16 06:15 | NM ---
EXAMINATION TYPE: NM parathyroid w/spect DATE OF EXAM: 10/15/2022 COMPARISON: CT cervical spine March 12, 2021 HISTORY: Hyperparathyroidism. TECHNIQUE: Following administration of 24.7 mCi Tc99m Sestamibi. Anterior projection images of the neck and ches t were obtained 10 minutes and 3 hours post injection. SPECT images of the neck and chest were obtai sunny and reconstructed in three axes. FINDINGS: Thyroid tracer washout: Delayed images demonstrate complete tracer washout from the thyroid. Parathyroid uptake: None. The delayed images do not demonstrate any focal abnormal persistent uptake in the region of the parathyroid glands to suggest parathyroid adenoma. Normal uptake: There is physiological tracer uptake in the visualized portion of the myocardium and s alivary glands. IMPRESSION: Normal parathyroid imaging study. No evidence for abnormal mediastinal uptake to suggest mediastinal parathyroid adenoma
== END | disposition home or self-care (01) ==
LOC: RADNMMAIN 07:49
PROVIDERS: ATTEND Internal Medicine Nephrology
DX: E21.3 Hyperparathyroidism, unspecified (principal)
CPT/HCPCS: 78071; A9500

== ENCOUNTER → 2022-12-25 | Outpatient (CLI) | payer MEDICARE ==
--- NOTE | 2022-12-25 08:10 | CT ---
EXAMINATION TYPE: CT sinus wo con CT DLP: 612 mGycm, Automated exposure control for dose reduction was used. DATE OF EXAM: 12/25/2022 7:18 AM COMPARISON: CT brain 02/28/2022. CLINICAL INDICATION:Female, 62 years old with history of J32.9 CHRONIC SINUSITIS CONTRAST: None. TECHNIQUE: Multiple thin axial images were obtained through the paranasal sinuses without the use of IV contrast. Additional coronal and sagittal reformatted images were submitted for evaluation. FINDINGS: Frontal sinuses: Normally developed and aerated. Frontal Recess: Clear Maxillary Sinuses: Normally developed and aerated. Maxillary Infundibula(OMC): Clear, . Ethmoid sinuses: Normally developed and aerated. Ethmoidal notch: Protected and abutting the lateral lamina. Sphenoid sinuses: Normally developed and aerated. There is sellar sphenoid sinus pneumatization witho ut evidence of dehiscence. There is mild dehiscence of the bilateral carotid canals with the right sp henoid sinus. No evidence of optic nerve dehiscence within the sphenoid sinus. Sphenoethmoidal recess es: Clear. Nasal septum: Mild deviation to the right. Nasal Turbinates: Within normal limits. Mastoid air cells & middle ears: The air cells are clear. The middle ears are grossly unremarkable. Modified Soft tissues & Brain: Partially seen without gross abnormality. Globes are intact. Other: Cribriform plate demonstrates symmetric Keros classification type 2 cribriform plate. No evidence of bony dehiscence of skull base. Lamina papyracea is intact without evidence of remote orbital fracture or orbital prolapse into the e thmoid sinus. Bilateral aphakia. IMPRESSION: 1. No significant mucosal sinus disease. 2. The ostiomeatal units, frontonasal and sphenoethmoidal recesses are clear.
== END | disposition home or self-care (01) ==
LOC: RADCTMAIN 06:57
PROVIDERS: ATTEND Otolaryngology
DX: J32.9 Chronic sinusitis, unspecified (principal)
CPT/HCPCS: 70486

== ENCOUNTER → 2023-01-21 | Outpatient (CLI) | payer MEDICARE ==
--- NOTE | 2023-01-21 11:18 | XR ---
EXAMINATION TYPE: XR bone survey complete DATE OF EXAM: 01/21/2023 COMPARISON: KUB radiograph 04/23/2022, chest radiograph 02/28/2022 HISTORY: D47.2 N18.9 J44.9 M12.9 Bony calvarium : 2 views of the bony calvarium demonstrate. No lytic or sclerotic osseous lesion. Spine: Two views of the cervical, thoracic and lumbar spines are submitted. No lytic or sclerotic os seous lesion. Mild multilevel degenerative changes. Chest: Frontal view demonstrates mild prominent heart without this chronic desiccation of the aorta. Postsurgical clips in the right upper quadrant. No lytic or sclerotic osseous lesion. PELVIS: Single view of the pelvis demonstrates. No lytic or sclerotic osseous lesion. UPPER EXTREMITIES: Two views of the upper extremities. No lytic or sclerotic osseous lesion. LOWER EXTREMITIES: 2 views of the lower extremities. No lytic or sclerotic osseous lesion. IMPRESSION: No lytic or sclerotic lesion within the visualized osseous structures.
== END | disposition home or self-care (01) ==
LOC: RADXRMAIN 10:21
PROVIDERS: ATTEND Internal Medicine Hematology & Oncology
DX: D47.2 Monoclonal gammopathy (principal); N18.9 Chronic kidney disease, unspecified; J44.9 Chronic obstructive pulmonary disease, unspecified; M12.9 Arthropathy, unspecified
CPT/HCPCS: 77075

== ENCOUNTER 2023-02-24 14:38 | Emergency (ER) | payer MEDICARE ==
[2023-02-24 14:43] VITALS: RESP 18; TEMP 98
[2023-02-24] MEDS ORDERED: KETOROLAC 15 MG/ML 1 ML VIAL IVP STA (15:04)
--- NOTE | 2023-02-24 15:13 | ED ---
General Adult HPI - General Chief complaint: Dizziness Stated complaint: DIZZINESS Time Seen by Provider: 02/24/23 14:44 Source: patient, EMS, RN notes reviewed Mode of arrival: EMS Limitations: no limitations - History of Present Illness Initial comments: Patient is a pleasant 61-year-old female presenting to the emergency Department not feeling well. Patient did have nasal and sinus surgery a week ago. Patient is having some discomfort of her left ear. No hearing loss. Patient did have fever this morning 100.7. Patient feels slightly lightheaded. Patient does have mild cough. Patient did take Tylenol earlier. - Related Data Home Medications Medication Instructions Recorded Confirmed Sucralfate [Carafate] 1 gm PO AC-BID 02/04/21 02/24/23 Ipratropium-Albuterol Nebulize 3 ml INHALATION RT-QID PRN 11/04/21 02/24/23 [Duoneb 0.5 mg-3 mg/3 ml Soln] Venlafaxine HCl ER [Effexor XR] 150 mg PO DAILY 11/04/21 02/24/23 Ziprasidone [Geodon] 40 mg PO DAILY 11/04/21 02/24/23 Pantoprazole Sodium [Protonix] 40 mg PO BID 11/12/21 02/24/23 lamoTRIgine [LaMICtal] 50 mg PO BID 11/12/21 02/24/23 Gabapentin 600 mg PO TID 02/28/22 02/24/23 Levothyroxine Sodium [Synthroid] 50 mcg PO DAILY 02/28/22 02/24/23 Ondansetron [Zofran] 4 mg PO Q8HR PRN 02/28/22 02/24/23 Venlafaxine HCl [Effexor XR] 37.5 mg PO DAILY 02/28/22 02/24/23 cloNIDine HCL 0.2 mg PO DAILY PRN 02/28/22 02/24/23 cloNIDine HCL 0.4 mg PO HS 02/28/22 02/24/23 rOPINIRole HCL [Requip] 0.5 mg PO HS 02/28/22 02/24/23 traZODone HCL 100 mg PO HS 02/28/22 02/24/23 Amoxic-Pot Clav 875-125Mg 1 tab PO Q12HR 02/24/23 02/24/23 [Augmentin 875-125] Butalb/Acetaminophen/Caffeine 1 tab PO BID PRN MDD 2 TABS 02/24/23 02/24/23 [Esgic 50-325-40 mg Tablet] Fluticasone/Umeclidin/Vilanter 1 puff INHALATION RT-DAILY 02/24/23 02/24/23 [Trelegy Ellipta 200-62.5-25] Linaclotide [Linzess] 290 mcg PO DAILY 02/24/23 02/24/23 Lubiprostone 8 mcg PO DAILY 02/24/23 02/24/23 Montelukast [Singulair] 10 mg PO DAILY 02/24/23 02/24/23 Sevelamer [Renvela] 800 mg PO DAILY 02/24/23 02/24/23 Ziprasidone [Geodon] 60 mg PO HS 02/24/23 02/24/23 traMADol HCL 50 mg PO TID PRN 02/24/23 02/24/23 Previous Rx's Medication Instructions Recorded Ketorolac [Toradol] 10 mg PO Q6HR PRN #15 tab 02/24/23 Allergies Allergy/AdvReac Type Severity Reaction Status Date / Time amoxicillin Allergy Anaphylaxis Verified 02/24/23 16:04 Review of Systems ROS Statement: Those systems with pertinent positive or pertinent negative responses have been documented in the HPI. ROS Other: All systems not noted in ROS Statement are negative. Constitutional: Reports: as per HPI, fever Eyes: Denies: eye pain ENT: Reports: as per HPI, ear pain Respiratory: Reports: as per HPI, cough. Denies: dyspnea Cardiovascular: Denies: chest pain Endocrine: Denies: fatigue Gastrointestinal: Denies: abdominal pain Genitourinary: Denies: urgency Musculoskeletal: Denies: back pain Skin: Denies: rash Past Medical History Past Medical History: COPD, GERD/Reflux, Renal Disease, Thyroid Disorder Additional Past Medical History / Comment(s): cysts on (R) kidney. PARATHYROID REMOVED, NAUSEA, CONSTIPATION, History of Any Multi-Drug Resistant Organisms: None Reported Past Surgical History: Cholecystectomy, Hysterectomy Additional Past Surgical History / Comment(s): parathyroidectomy Past Anesthesia/Blood Transfusion Reactions: No Reported Reaction Additional Past Anesthesia/Blood Transfusion Reaction / Comment(s): "Have woken up during surgery before" COLONOSCOPY AND EGD " Past Psychological History: Bipolar Smoking Status: Current every day smoker Past Alcohol Use History: None Reported Past Drug Use History: None Reported - Past Family History Father Family Medical History: Cancer, Coronary Artery Disease (CAD) Additional Family Medical History / Comment(s): Father is of blood cancer. Mother Family Medical History: Coronary Artery Disease (CAD) Additional Family Medical History / Comment(s): KIDNEY DISEASE Son(s) Family Medical History: Cancer Additional Family Medical History / Comment(s): Brain tumor - . Sister(s) Family Medical History: Cancer Additional Family Medical History / Comment(s): Breast cancer. General Exam Limitations: no limitations General appearance: alert, in no apparent distress Head exam: Present: atraumatic Eye exam: Present: normal appearance, PERRL, EOMI ENT exam: Present: normal exam, normal oropharynx, TM's normal bilaterally Neck exam: Present: normal inspection, full ROM. Absent: tenderness, meningismus, lymphadenopathy Respiratory exam: Present: normal lung sounds bilaterally Cardiovascular Exam: Present: regular rate, normal rhythm GI/Abdominal exam: Present: soft. Absent: tenderness Extremities exam: Present: normal inspection. Absent: pedal edema, calf tenderness Neurological exam: Present: alert, oriented X3, CN II-XII intact. Absent: motor sensory deficit Psychiatric exam: Present: normal affect, normal mood Skin exam: Present: normal color Course Vital Signs 02/24/23 02/24/23 14:40 15:49 Temperature 98.0 F Pulse Rate 71 67 Respiratory 18 18 Rate Blood Pressure 104/66 110/64 O2 Sat by Pulse 99 98 Oximetry EKG Findings - EKG Results: EKG: interpreted by ERMD (Right axis. Right bundle branch block. Nonspecific ST-T.), sinus rhythm Medical Decision Making - Medical Decision Making Was pt. sent in by a medical professional or institution (, PA, CHEMICAL LABORATORY SCIENTIST, urgent care, hospital, or usp...) When possible be specific @ -[No] Did you speak to anyone other than the patient for history (EMS, parent, family, police, friend...)? What history was obtained from this source @ -[No] Did you review nursing and triage notes (agree or disagree)? Why? @ -[I reviewed and agree with nursing and triage notes] Were old charts reviewed (outside hosp., previous admission, EMS record, old EKG, old radiological studies, urgent care reports/EKG's, usp records)? Report findings @ -[No old charts were reviewed] Differential Diagnosis (chest pain, altered mental status, abdominal pain women, abdominal pain men, vaginal bleeding, weakness, fever, dyspnea, syncope, headache, dizziness, GI bleed, back pain, seizure, CVA, palpatations, mental health)? @ -[not applicable] EKG interpreted by me (3pts min.). @ -[As above] X-rays interpreted by me (1pt min.). @ -Chest x-ray does not reveal acute abnormality CT interpreted by me (1pt min.). @ -For reviewed U/S interpreted by me (1pt. min.). @ -[None done] What testing was considered but not performed or refused? (CT, X-rays, U/S, labs)? Why? @ -[None] What meds were considered but not given or refused? Why? @ -[None] Did you discuss the management of the patient with other professionals (professionals i.e. , PA, CHEMICAL LABORATORY SCIENTIST, lab, RT, psych nurse, nursing home social worker, electronics scale tester, teacher, diplomatic officer, family independence case manager)? Give summary @ -[No] Was smoking cessation discussed for >3mins.? @ -[No] Was critical care preformed (if so, how long)? @ -[No] Were there social determinants of health that impacted care today? How? (Homelessness, low income, unemployed, alcoholism, drug addiction, transportation, low edu. Level, literacy, decrease access to med. care, halfway, rehab)? @ -[No] Was there de-escalation of care discussed even if they declined (Discuss DNR or withdrawal of care, Hospice)? DNR status @ -[No] What co-morbidities impacted this encounter? (DM, HTN, Smoking, COPD, CAD, Cancer, CVA, ARF, Chemo, Hep., AIDS, mental health diagnosis, sleep apnea, morbid obesity)? @ -[None] Was patient admitted / discharged? Hospital course, mention meds given and route, prescriptions, significant lab abnormalities, going to OR and other pertinent info. @ -Patient reevaluated and improved with Toradol. Patient states she does have an appointment tomorrow with her ENT and will keep this. Patient updated on results and need for follow-up. Undiagnosed new problem with uncertain prognosis? @ -[No] Drug Therapy requiring intensive monitoring for toxicity (Heparin, Nitro, Insulin, Cardizem)? @ -[No] Were any procedures done? @ -[No] Diagnosis/symptom? @ -Otalgia Acute, or Chronic, or Acute on Chronic? @ -Acute Uncomplicated (without systemic symptoms) or Complicated (systemic symptoms)? @ -[default] Side effects of treatment? @ -[No] Exacerbation, Progression, or Severe Exacerbation? @ -[No] Poses a threat to life or bodily function? How? (Chest pain, [place], [place], pneumonia, PE, COPD, DKA, ARF, appy, cholecystitis, CVA, Diverticulitis, Homicidal, Suicidal, threat to staff... and all critical care pts) @ -[No] - Lab Data Result diagrams: 02/24/23 15:27 02/24/23 15:27 Lab Results 02/24/23 02/24/23 02/24/23 Range/Units 15:27 15:27 15:27 WBC 7.6 (3.8-10.6) k/uL RBC 4.53 (3.80-5.40) m/uL Hgb 13.6 (11.4-16.0) gm/dL Hct 40.5 (34.0-46.0) % MCV 89.4 (80.0-100.0) fL MCH 30.0 (25.0-35.0) pg MCHC 33.6 (31.0-37.0) g/dL RDW 13.5 (11.5-15.5) % Plt Count 264 (150-450) k/uL MPV 7.9 Neutrophils % 69 % Lymphocytes % 22 % Monocytes % 7 % Eosinophils % 0 % Basophils % 0 % Neutrophils # 5.2 (1.3-7.7) k/uL Lymphocytes # 1.7 (1.0-4.8) k/uL Monocytes # 0.5 (0-1.0) k/uL Eosinophils # 0.0 (0-0.7) k/uL Basophils # 0.0 (0-0.2) k/uL Sodium 139 (137-145) mmol/L Potassium 4.1 (3.5-5.1) mmol/L Chloride 107 (98-107) mmol/L Carbon Dioxide 27 (22-30) mmol/L Anion Gap 5 mmol/L BUN 18 H (7-17) mg/dL Creatinine 1.22 H (0.52-1.04) mg/dL Est GFR (CKD-EPI)AfAm 55 (>60 ml/min/1.73 sqM) Est GFR (CKD-EPI)NonAf 48 (>60 ml/min/1.73 sqM) Glucose 97 (74-99) mg/dL Calcium 9.1 (8.4-10.2) mg/dL Total Bilirubin 0.3 (0.2-1.3) mg/dL AST 27 (14-36) U/L ALT 23 (4-34) U/L Alkaline Phosphatase 139 H (38-126) U/L Total Protein 6.0 L (6.3-8.2) g/dL Albumin 3.8 (3.5-5.0) g/dL Influenza Type A (PCR) Not Detected (Not Detectd) Influenza Type B (PCR) Not Detected (Not Detectd) RSV (PCR) Not Detected (Not Detectd) SARS-CoV-2 (PCR) Not Detected (Not Detectd) Disposition Clinical Impression: Otalgia Disposition: HOME SELF-CARE Condition: Stable Instructions (If sedation given, give patient instructions): Earache (ED) Additional Instructions: Please follow-up with ENT tomorrow as planned. Please also follow-up to primary care physician in the next one to 2 days for recheck. Prescription for pain medicine was sent to pharmacy. Return for increased pain, fever, hearing loss, worsening symptoms or any other concerns. Prescriptions: Ketorolac [Toradol] 10 mg PO Q6HR PRN #15 tab PRN Reason: Pain Is patient prescribed a controlled substance at d/c from ED?: No Referrals: Rosmery Segovia MD [Primary Care Provider] - 1-2 days Javid Wilkinson MD [STAFF PHYSICIAN] - 1-2 days Time of Disposition: 18:06
[2023-02-24 15:38] LABS: Basophils % (A) 0 %; Eosinophils % (A) 0 %; HCT 40.5 % (34.0-46.0); HGB 13.6 gm/dL (11.4-16.0); Lymphocytes # (A) 1.7 k/uL (1.0-4.8); Lymphocytes % (A) 22 %; MCHC 33.6 g/dL (31.0-37.0); MCV 89.4 fL (80.0-100.0); Mean Platelet Volume 7.9; Monocytes # (A) 0.5 k/uL (0-1.0); Monocytes % (A) 7 %; Neutrophils # (A) 5.2 k/uL (1.3-7.7); Neutrophils % (A) 69 %; Platelet Count 264 k/uL (150-450); RBC 4.53 m/uL (3.80-5.40); RDW 13.5 % (11.5-15.5); WBC 7.6 k/uL (3.8-10.6)
[2023-02-24 15:51] LABS: Albumin 3.8 g/dL (3.5-5.0); Calcium 9.1 mg/dL (8.4-10.2); Potassium 4.1 mmol/L (3.5-5.1); Total Bilirubin 0.3 mg/dL (0.2-1.3)
--- NOTE | 2023-02-24 16:04 | CT ---
EXAMINATION TYPE: CT sinus wo con CT DLP: 343.8 mGycm, Automated exposure control for dose reduction was used. DATE OF EXAM: 02/24/2023 3:47 PM COMPARISON: CT sinus 12/25/2022 CLINICAL INDICATION:Female, 63 years old with history of post op fever; , left ear pain post sinus pr ocedure TECHNIQUE: Multiple thin axial images were obtained through the paranasal sinuses without the use of IV contrast. Additional coronal and sagittal reformatted images were submitted for evaluation. Contrast used: none Oral contrast used: none FINDINGS: Frontal sinuses: Normally developed and aerated. Frontal Recess: Clear Maxillary Sinuses: Normally developed and aerated. Maxillary Infundibula(OMC): Clear, . Ethmoid sinuses: Normally developed and aerated. Ethmoidal notch: Sphenoid sinuses: Normally developed with mild mucosal thickening. There is sphenoid sinus pneumatiza tion without evidence of dehiscence. No dehiscence of carotid canal. No evidence of optic nerve dehi scence within the sphenoid sinus. Sphenoethmoidal recesses: Are partially opacified on the right and patent on the left. Nasal septum: Within normal limits.. Nasal Turbinates: Within normal limits. Mastoid air cells & middle ears: The air cells are clear. The middle ears are grossly unremarkable. Modified Soft tissues & Brain: Partially seen without gross abnormality. The lenses are absent. Other: Cribriform plate demonstrates symmetric cribriform plate. No evidence of bony dehiscence of skull ba se. Lamina papyracea is intact without evidence of remote orbital fracture or orbital prolapse into the e thmoid sinus. No organizing fluid collection or abnormality involving the left external auditory canal. The auditor appraiser y canal appears relatively symmetric. IMPRESSION: 1. The left ear is grossly unremarkable. No evidence for otitis media, otitis externa or mastoid air cell effusion. 2. Mild paranasal sinus disease 3. The ostiomeatal units, frontonasal recesses are clear. The right sphenoethmoidal recesses is part ially obstructed in the left is clear..
--- NOTE | 2023-02-24 16:57 | XR ---
EXAMINATION TYPE: XR chest 2V DATE OF EXAM: 02/24/2023 COMPARISON: 02/28/2022 INDICATION: Cough, dizziness TECHNIQUE: Frontal and lateral views of the chest are obtained. FINDINGS: The heart size is normal. The pulmonary vasculature is normal. The lungs are clear. IMPRESSION: 1. No acute pulmonary process.
[2023-02-24 18:49] VITALS: BP 140/77; PULSE 70
== END 2023-02-24 18:56 | disposition home or self-care (01) ==
LOC: EC 14:38
DX: H92.02 Otalgia, left ear (principal); J44.9 Chronic obstructive pulmonary disease, unspecified; K21.9 Gastro-esophageal reflux disease without esophagitis; E07.9 Disorder of thyroid, unspecified; F31.9 Bipolar disorder, unspecified; F17.200 Nicotine dependence, unspecified, uncomplicated; Z79.890 Hormone replacement therapy; Z79.51 Long term (current) use of inhaled steroids; Z79.899 Other long term (current) drug therapy; Z88.0 Allergy status to penicillin; Z20.822 Contact with and (suspected) exposure to COVID-19
CPT/HCPCS: 36415; 93005; 80053; 85025; 87636; 71046; 70486; 99285; 96374; J1885

== ENCOUNTER → 2023-03-16 | Outpatient (CLI) | payer MEDICARE ==
--- NOTE | 2023-03-16 08:28 | CT ---
EXAMINATION TYPE: CT chest wo con DATE OF EXAM: 03/16/2023 COMPARISON: 08/06/2022 HISTORY: Solitary pulmonary nodule and shortness of breath. CT DLP: 227 mGycm, Automated exposure control for dose reduction was used. CONTRAST: Performed injected with 0 mL of Isovue 300. TECHNIQUE: Axial images were obtained at 5 mm thick sections. Reconstructed images are reviewed on [employer] computer in the coronal plane. FINDINGS: Portion of the thyroid visualized is normal. There is a 0.5 cm nodule within the posterior right lung. Series 4 image 25. There is some subtle density within the anterior right midlung, series 4 image 29, this is smaller th an on comparison. There is a persistent density within the posterior medial right mid lung. Series 4 image 23. No enlarged mediastinal or hilar adenopathy is evident. The ascending aorta diameter at the level o f the main pulmonary artery is 3.0 cm. The main pulmonary artery diameter at the bifurcation is 2.7 cm. Coronary artery calcifications present. Limited CT sections are obtained through the upper abdomen. Abdomen is essentially unremarkable. Note made of prior cholecystectomy IMPRESSIONS: 1. 0.5 cm posterior peripheral right mid lung nodule. Follow-up low dose CT chest in 6 months is myranda mmended. 2. Additional smaller lung densities appear mildly improved from comparison
== END | disposition home or self-care (01) ==
LOC: RADCTMAIN 06:54
PROVIDERS: ATTEND Family Medicine
DX: J98.4 Other disorders of lung (principal); R91.1 Solitary pulmonary nodule
CPT/HCPCS: 71250

== ENCOUNTER → 2023-04-29 | Outpatient (CLI) | payer MEDICARE ==
--- NOTE | 2023-04-29 14:29 | US ---
EXAMINATION TYPE: US kidneys/renal and bladder DATE OF EXAM: 04/29/2023 COMPARISON: 10/22/2021 12/22/2021 CLINICAL INDICATION: Female, 63 years old with history of N18.32 CHRONIC KIDNEY DISEASE, STAGE 3B; CK D EXAM MEASUREMENTS: Right Kidney: 10.5 x 4.8 x 4.0 cm Left Kidney: 9.0 x 4.4 x 4.3 cm Right Kidney: thin renal cortex, echogenic, cystic area = 2.2 x 2.2 x 2.4cm Left Kidney: thin renal cortex, echogenic, cystic areas noted, largest = 2.1 x 2.0 x 1.9cm Bladder: appears wnl Bilateral Jets seen: yes IMPRESSION: 1. Medical renal disease. 2. Bilateral renal cysts. 3. No evidence for hydronephrosis.
== END | disposition home or self-care (01) ==
LOC: RADUSWWP 13:29
PROVIDERS: ATTEND Internal Medicine Nephrology
DX: N18.32 Chronic kidney disease, stage 3b (principal); N28.1 Cyst of kidney, acquired; N28.89 Other specified disorders of kidney and ureter
CPT/HCPCS: 76770

== ENCOUNTER 2023-05-08 23:41 | Emergency (ER) | payer MEDICARE ==
[2023-05-08 23:49] VITALS: RESP 18; TEMP 97.9
[2023-05-09] MEDS ORDERED: ONDANSETRON 4 MG/2 ML VIAL IVP STA (01:27)
[2023-05-09] MEDS ORDERED: SODIUM CHLORIDE 0.9% 1,000 ML IV ONE (01:27)
[2023-05-09] MEDS ORDERED: MAG HYDROX/AL HYDROX/SIMETH 30 ML, HYOSCYAMINE ELIXIR 10 ML, LIDOCAINE 2% GLYDO JELLY 1... PO STA ×3 (01:27)
[2023-05-09 01:34] LABS: Basophils % (A) 0 %; Eosinophils % (A) 0 %; HCT 41.7 % (34.0-46.0); Lymphocytes # (A) 1.9 k/uL (1.0-4.8); Lymphocytes % (A) 16 %; MCH 30.9 pg (25.0-35.0); MCHC 33.7 g/dL (31.0-37.0); MCV 91.5 fL (80.0-100.0); Mean Platelet Volume 7.9; Monocytes # (A) 0.6 k/uL (0-1.0); Monocytes % (A) 5 %; Neutrophils # (A) 9.3 k/uL (1.3-7.7); Neutrophils % (A) 77 %; Platelet Count 227 k/uL (150-450); RBC 4.55 m/uL (3.80-5.40); RDW 13.7 % (11.5-15.5)
[2023-05-09 01:43] LABS: ALT 20 U/L (4-34); AST 26 U/L (14-36); African American GFR (CKD) 63 (>60 ml/min/1.73 sqM); Albumin 3.5 g/dL (3.5-5.0); Alkaline Phosphatase 152 U/L (38-126); Amylase 77 U/L (30-110); Anion Gap 4 mmol/L; Blood Urea Nitrogen 20 mg/dL (7-17); Calcium 9.1 mg/dL (8.4-10.2); Carbon Dioxide 22 mmol/L (22-30); Chloride 112 mmol/L (98-107); Glucose 104 mg/dL (74-99); Lipase 134 U/L (23-300); Non-African American GFR(CKD) 55 (>60 ml/min/1.73 sqM); Potassium 3.9 mmol/L (3.5-5.1); Sodium 138 mmol/L (137-145); Total Bilirubin 0.4 mg/dL (0.2-1.3)
--- NOTE | 2023-05-09 02:29 | ED ---
General Adult HPI - General Chief complaint: Nausea/Vomiting/Diarrhea Stated complaint: Nausea, vomiting Time Seen by Provider: 05/09/23 01:10 Source: EMS, RN notes reviewed Mode of arrival: EMS Limitations: no limitations - History of Present Illness Initial comments: 63-year-old female with past medical history significant for hiatal hernia and chronic constipation presents to the emergency department with a chief complaint of epigastric pain that started at 8 PM yesterday morning after eating eggs salad same which. She reports that she ate an egg salad sandwich and approximately 30 minutes after she had nausea and vomiting. She reports that other people ate the salad 3 mins however he did not have any symptoms. She denies any fever, cough, sore throat, chills, chest pain, shortness of breath, melena, hematochezia. - Related Data Home Medications Medication Instructions Recorded Confirmed Sucralfate [Carafate] 1 gm PO AC-BID 02/04/21 02/24/23 Ipratropium-Albuterol Nebulize 3 ml INHALATION RT-QID PRN 11/04/21 02/24/23 [Duoneb 0.5 mg-3 mg/3 ml Soln] Venlafaxine HCl ER [Effexor XR] 150 mg PO DAILY 11/04/21 02/24/23 Ziprasidone [Geodon] 40 mg PO DAILY 11/04/21 02/24/23 Pantoprazole Sodium [Protonix] 40 mg PO BID 11/12/21 02/24/23 lamoTRIgine [LaMICtal] 50 mg PO BID 11/12/21 02/24/23 Gabapentin 600 mg PO TID 02/28/22 02/24/23 Levothyroxine Sodium [Synthroid] 50 mcg PO DAILY 02/28/22 02/24/23 Ondansetron [Zofran] 4 mg PO Q8HR PRN 02/28/22 02/24/23 Venlafaxine HCl [Effexor XR] 37.5 mg PO DAILY 02/28/22 02/24/23 cloNIDine HCL 0.2 mg PO DAILY PRN 02/28/22 02/24/23 cloNIDine HCL 0.4 mg PO HS 02/28/22 02/24/23 rOPINIRole HCL [Requip] 0.5 mg PO HS 02/28/22 02/24/23 traZODone HCL 100 mg PO HS 02/28/22 02/24/23 Amoxic-Pot Clav 875-125Mg 1 tab PO Q12HR 02/24/23 02/24/23 [Augmentin 875-125] Butalb/Acetaminophen/Caffeine 1 tab PO BID PRN MDD 2 TABS 02/24/23 02/24/23 [Esgic 50-325-40 mg Tablet] Fluticasone/Umeclidin/Vilanter 1 puff INHALATION RT-DAILY 02/24/23 02/24/23 [Trelegy Ellipta 200-62.5-25] Linaclotide [Linzess] 290 mcg PO DAILY 02/24/23 02/24/23 Lubiprostone 8 mcg PO DAILY 02/24/23 02/24/23 Montelukast [Singulair] 10 mg PO DAILY 02/24/23 02/24/23 Sevelamer [Renvela] 800 mg PO DAILY 02/24/23 02/24/23 Ziprasidone [Geodon] 60 mg PO HS 02/24/23 02/24/23 traMADol HCL 50 mg PO TID PRN 02/24/23 02/24/23 Previous Rx's Medication Instructions Recorded Ketorolac [Toradol] 10 mg PO Q6HR PRN #15 tab 02/24/23 Ondansetron Odt [Zofran Odt] 4 mg PO Q8HR PRN #10 tab 05/09/23 Allergies Allergy/AdvReac Type Severity Reaction Status Date / Time amoxicillin Allergy Anaphylaxis Verified 02/24/23 16:04 Review of Systems ROS Statement: Those systems with pertinent positive or pertinent negative responses have been documented in the HPI. ROS Other: All systems not noted in ROS Statement are negative. Past Medical History Past Medical History: COPD, GERD/Reflux, Renal Disease, Thyroid Disorder Additional Past Medical History / Comment(s): cysts on (R) kidney. PARATHYROID REMOVED, NAUSEA, CONSTIPATION, History of Any Multi-Drug Resistant Organisms: None Reported Past Surgical History: Cholecystectomy, Hysterectomy Additional Past Surgical History / Comment(s): parathyroidectomy Past Anesthesia/Blood Transfusion Reactions: No Reported Reaction Additional Past Anesthesia/Blood Transfusion Reaction / Comment(s): "Have woken up during surgery before" COLONOSCOPY AND EGD " Past Psychological History: Bipolar Smoking Status: Current every day smoker Past Alcohol Use History: None Reported Past Drug Use History: None Reported - Past Family History Father Family Medical History: Cancer, Coronary Artery Disease (CAD) Additional Family Medical History / Comment(s): Father is of blood cancer. Mother Family Medical History: Coronary Artery Disease (CAD) Additional Family Medical History / Comment(s): KIDNEY DISEASE Son(s) Family Medical History: Cancer Additional Family Medical History / Comment(s): Brain tumor - . Sister(s) Family Medical History: Cancer Additional Family Medical History / Comment(s): Breast cancer. General Exam - General Exam Comments Initial Comments: General: Alert, in no acute distress Head: atraumatic normocephalic. Eyes PERRL, EOMI intact, mucous membranes moist Respiratory: Lungs clear to auscultation bilaterally Cardiovascular: Heart rate regular rate and rhythm Abdominal: Soft without guarding or rebound, epigastric tenderness Extremities: Normal inspection with full range of motion and normal capillary refill Neuroogic: alert and oriented 3, CN II-XII intact, able to ambulate with steady gait Skin: warm dry and intact with normal color Limitations: no limitations Course Vital Signs 05/08/23 05/09/23 05/09/23 23:42 01:51 04:08 Temperature 97.9 F Pulse Rate 83 70 66 Respiratory 18 18 18 Rate Blood Pressure 109/76 121/85 107/74 O2 Sat by Pulse 95 99 100 Oximetry Medical Decision Making - Medical Decision Making Was pt. sent in by a medical professional or institution (, PA, [employer], urgent care, hospital, or correction...) When possible be specific @ -[No] Did you speak to anyone other than the patient for history (EMS, parent, family, police, friend...)? What history was obtained from this source @ -EMS Did you review nursing and triage notes (agree or disagree)? Why? @ -[I reviewed and agree with nursing and triage notes] Were old charts reviewed (outside hosp., previous admission, EMS record, old EKG, old radiological studies, urgent care reports/EKG's, correction records)? Report findings @ -[No old charts were reviewed] Differential Diagnosis (chest pain, altered mental status, abdominal pain women, abdominal pain men, vaginal bleeding, weakness, fever, dyspnea, syncope, headache, dizziness, GI bleed, back pain, seizure, CVA, palpatations, mental health, musculoskeletal)? @ -[not applicable] EKG interpreted by me (3pts min.). @ -[As above] X-rays interpreted by me (1pt min.). @ -[None done] CT interpreted by me (1pt min.). @ -[None done] U/S interpreted by me (1pt. min.). @ -[None done] What testing was considered but not performed or refused? (CT, X-rays, U/S, labs)? Why? @ -Imaging was considered however patient symptoms were acute in nature patient is agreeable with the plan to start with lab work, What meds were considered but not given or refused? Why? @ -[None] Did you discuss the management of the patient with other professionals (professionals i.e. , PA, [employer], lab, RT, psych nurse, social media project manager, freelance recruiter, teacher, special officer, case technician)? Give summary @ -[No] Was smoking cessation discussed for >3mins.? @ -[No] Was critical care preformed (if so, how long)? @ -[No] Were there social determinants of health that impacted care today? How? (Homelessness, low income, unemployed, alcoholism, drug addiction, transportation, low edu. Level, literacy, decrease access to med. care, senior living, rehab)? @ -[No] Was there de-escalation of care discussed even if they declined (Discuss DNR or withdrawal of care, Hospice)? DNR status @ -[No] What co-morbidities impacted this encounter? (DM, HTN, Smoking, COPD, CAD, Cancer, CVA, ARF, Chemo, Hep., AIDS, mental health diagnosis, sleep apnea, morbid obesity)? @ -[None] Was patient admitted / discharged? Hospital course, mention meds given and route, prescriptions, significant lab abnormalities, going to OR and other pertinent info. @ -Discharged. This is a pleasant 63-year-old female who presents emergency Department with a chief complaint of nausea and vomiting. Patient had a thorough history and physical exam performed on the ED. Physical exam is essentially unremarkable. Patient resting comfortably on cart tingling multiple evaluations status post medications. Heart rate regular rate and rhythm, lungs clear to auscultation bilaterally, abdomen soft with appendectomy gastric tenderness. Patient lab work performed which was essentially unremarkable. I discussed the results in detail with the patient verbalized understanding and all questions were addressed. She was given a GI cocktail, Toradol, Zofran, 1 L IV with symptomatic relief in the emergency department. Return precautions were discussed at length with recommend close follow-up with PCP in 1-2 days. Patient will be discharged in stable condition Case discussed with Dr. Alegria who agrees with plan of care Undiagnosed new problem with uncertain prognosis? @ -[No] Drug Therapy requiring intensive monitoring for toxicity (Heparin, Nitro, Insulin, Cardizem)? @ -[No] Were any procedures done? @ -[No] Diagnosis/symptom? @ -Nausea and vomiting Acute, or Chronic, or Acute on Chronic? @ -Acute Uncomplicated (without systemic symptoms) or Complicated (systemic symptoms)? @ -Uncomplicated Side effects of treatment? @ -[No] Exacerbation, Progression, or Severe Exacerbation? @ -[No] Poses a threat to life or bodily function? How? (Chest pain, [place], [place], pneumonia, PE, COPD, DKA, ARF, appy, cholecystitis, CVA, Diverticulitis, Homicidal, Suicidal, threat to staff... and all critical care pts) @ -Low Likelihood - Lab Data Result diagrams: 05/09/23 00:00 05/09/23 00:00 Lab Results 05/09/23 05/09/23 05/09/23 Range/Units 00:00 00:00 00:00 WBC 12.0 H (3.8-10.6) k/uL RBC 4.55 (3.80-5.40) m/uL Hgb 14.0 (11.4-16.0) gm/dL Hct 41.7 (34.0-46.0) % MCV 91.5 (80.0-100.0) fL MCH 30.9 (25.0-35.0) pg MCHC 33.7 (31.0-37.0) g/dL RDW 13.7 (11.5-15.5) % Plt Count 227 (150-450) k/uL MPV 7.9 Neutrophils % 77 % Lymphocytes % 16 % Monocytes % 5 % Eosinophils % 0 % Basophils % 0 % Neutrophils # 9.3 H (1.3-7.7) k/uL Lymphocytes # 1.9 (1.0-4.8) k/uL Monocytes # 0.6 (0-1.0) k/uL Eosinophils # 0.0 (0-0.7) k/uL Basophils # 0.0 (0-0.2) k/uL Sodium 138 (137-145) mmol/L Potassium 3.9 (3.5-5.1) mmol/L Chloride 112 H (98-107) mmol/L Carbon Dioxide 22 (22-30) mmol/L Anion Gap 4 mmol/L BUN 20 H (7-17) mg/dL Creatinine 1.09 H (0.52-1.04) mg/dL Est GFR (CKD-EPI)AfAm 63 (>60 ml/min/1.73 sqM) Est GFR (CKD-EPI)NonAf 55 (>60 ml/min/1.73 sqM) Glucose 104 H (74-99) mg/dL Plasma Lactic Acid Jorge 1.4 (0.7-2.0) mmol/L Calcium 9.1 (8.4-10.2) mg/dL Total Bilirubin 0.4 (0.2-1.3) mg/dL AST 26 (14-36) U/L ALT 20 (4-34) U/L Alkaline Phosphatase 152 H (38-126) U/L Total Protein 6.0 L (6.3-8.2) g/dL Albumin 3.5 (3.5-5.0) g/dL Amylase 77 (30-110) U/L Lipase 134 (23-300) U/L Influenza Type A (PCR) (Not Detectd) Influenza Type B (PCR) (Not Detectd) RSV (PCR) (Not Detectd) SARS-CoV-2 (PCR) (Not Detectd) 05/09/23 Range/Units 01:32 WBC (3.8-10.6) k/uL RBC (3.80-5.40) m/uL Hgb (11.4-16.0) gm/dL Hct (34.0-46.0) % MCV (80.0-100.0) fL MCH (25.0-35.0) pg MCHC (31.0-37.0) g/dL RDW (11.5-15.5) % Plt Count (150-450) k/uL MPV Neutrophils % % Lymphocytes % % Monocytes % % Eosinophils % % Basophils % % Neutrophils # (1.3-7.7) k/uL Lymphocytes # (1.0-4.8) k/uL Monocytes # (0-1.0) k/uL Eosinophils # (0-0.7) k/uL Basophils # (0-0.2) k/uL Sodium (137-145) mmol/L Potassium (3.5-5.1) mmol/L Chloride (98-107) mmol/L Carbon Dioxide (22-30) mmol/L Anion Gap mmol/L BUN (7-17) mg/dL Creatinine (0.52-1.04) mg/dL Est GFR (CKD-EPI)AfAm (>60 ml/min/1.73 sqM) Est GFR (CKD-EPI)NonAf (>60 ml/min/1.73 sqM) Glucose (74-99) mg/dL Plasma Lactic Acid Jorge (0.7-2.0) mmol/L Calcium (8.4-10.2) mg/dL Total Bilirubin (0.2-1.3) mg/dL AST (14-36) U/L ALT (4-34) U/L Alkaline Phosphatase (38-126) U/L Total Protein (6.3-8.2) g/dL Albumin (3.5-5.0) g/dL Amylase (30-110) U/L Lipase (23-300) U/L Influenza Type A (PCR) Not Detected (Not Detectd) Influenza Type B (PCR) Not Detected (Not Detectd) RSV (PCR) Not Detected (Not Detectd) SARS-CoV-2 (PCR) Not Detected (Not Detectd) Disposition Clinical Impression: Nausea and vomiting Disposition: HOME SELF-CARE Condition: Stable Instructions (If sedation given, give patient instructions): Acute Nausea and Vomiting (ED) Additional Instructions: Please return to the nearest emergency department if symptoms worsen or persist Prescriptions: Ondansetron Odt [Zofran Odt] 4 mg PO Q8HR PRN #10 tab PRN Reason: Nausea Is patient prescribed a controlled substance at d/c from ED?: No Referrals: Ray Segovia MD [Primary Care Provider] - 1-2 days Time of Disposition: 03:59
[2023-05-09] MEDS ORDERED: KETOROLAC 15 MG/ML 1 ML VIAL IVP STA (02:36)
[2023-05-09 04:09] VITALS: BP 107/74; PULSE 66
== END 2023-05-09 04:41 | disposition home or self-care (01) ==
LOC: EC 23:41
DX: R11.2 Nausea with vomiting, unspecified (principal); J44.9 Chronic obstructive pulmonary disease, unspecified; K21.9 Gastro-esophageal reflux disease without esophagitis; E07.9 Disorder of thyroid, unspecified; F17.200 Nicotine dependence, unspecified, uncomplicated; Z86.59 Personal history of other mental and behavioral disorders; Z79.890 Hormone replacement therapy; Z79.899 Other long term (current) drug therapy; Z88.0 Allergy status to penicillin; Z20.822 Contact with and (suspected) exposure to COVID-19; Z79.51 Long term (current) use of inhaled steroids
CPT/HCPCS: 36415; 80053; 82150; 83605; 83690; 85025; 87636; 99284; 96374; 96375; 96361; J2405; J1885

== ENCOUNTER → 2023-05-22 | Outpatient (CLI) | payer MEDICARE ==
[2023-05-25 13:16] LABS: IgG Subclass 2 138.3 mg/dL (241.80-700.30); IgG Subclass 3 28.3 mg/dL (21.82-176.00)
== END | disposition home or self-care (01) ==
LOC: LABWHC1 15:21
PROVIDERS: ATTEND Otolaryngology
DX: J32.9 Chronic sinusitis, unspecified (principal)
CPT/HCPCS: 36415; 82784; 82787

== ENCOUNTER → 2023-06-19 | Outpatient (CLI) | payer MEDICARE ==
--- NOTE | 2023-06-22 09:43 | MM ---
Reason for Exam: Screening (asymptomatic). Last mammogram was performed 3 year(s) and 8 month(s) ago. Patient History: Menarche at age 15. First Full-Term at age 27. Right ovary removed at age 43. Hysterectomy at age 43. Postmenopausal. Patient has history of breast feeding. Sister had breast cancer. Mother had breast cancer. Risk Values: Yamila 5 year model risk: 4.8%. NCI Lifetime model risk: 20.3%. Prior Study Comparison: 06/15/2013 Screening Mammogram, Unknown. 01/03/2015 Screening Mammogram, Unknown. 11/02/2019 Bilateral Screening Mammogram, [facility]. Tissue Density: The breast tissue is heterogeneously dense. This may lower the sensitivity of mammography. Findings: Analyzed By CAD. There is no suspicious group of microcalcifications or new suspicious mass. Overall Assessment: Negative, BI-RAD 1 Management: Screening Mammogram of both breasts in [address] [facility] will attempt to contact patient to return for supplemental views and ultrasound if indicated. Patient should continue monthly self-breast exams. A clinical breast exam by your physician is recommended on an annual basis. This exam should not preclude additional follow-up of suspicious palpable abnormalities. Note on Yamila scores and lifetime risk: 1. A Yamila score greater than 3% is considered moderate risk. If this is the case, consider specialist referral to assess eligibility for a risk reducing agent. 2. If overall lifetime risk for the development of breast cancer is 20% or higher, the patient may qualify for future screening with alternating mammogram and breast MRI. Electronically signed and approved by: Oren Baldwin DO
== END | disposition home or self-care (01) ==
LOC: RADMAMWWP 08:01
PROVIDERS: ATTEND Family Medicine
DX: Z12.31 Encounter for screening mammogram for malignant neoplasm of breast (principal); Z78.0 Asymptomatic menopausal state; Z80.3 Family history of malignant neoplasm of breast
CPT/HCPCS: 77063; 77067

== ENCOUNTER 2023-07-03 00:24 | Emergency (ER) | payer MEDICARE ==
[2023-07-03 00:34] VITALS: TEMP 97.9
[2023-07-03] MEDS ORDERED: IBUPROFEN 600 MG TAB PO STA (01:39)
[2023-07-03] MEDS ORDERED: VENLAFAXINE HCL 50 MG TAB PO STA (01:39)
[2023-07-03] MEDS ORDERED: LORazepam 1 MG TAB PO STA (01:39)
--- NOTE | 2023-07-03 01:44 | ED ---
General Adult HPI - General Chief complaint: Recheck/Abnormal Lab/Rx Stated complaint: allergic reaction Time Seen by Provider: 07/03/23 01:14 Source: patient Mode of arrival: ambulatory Limitations: no limitations - History of Present Illness Initial comments: This patient is a 63-year-old woman who is complaining of a constellation of symptoms getting worse over the past few days. Patient states she is having headache, feeling anxious, shaky, and nauseated. She states that her physician had been concerned about her being on venlafaxine, so she was switched to desvenlafaxine, just prior to the onset of symptoms. She reports that her dose of venlafaxine was milligrams, and that she is taking the desvenlafaxine 25 mg. Onset/Timin -: days(s) Location: head Quality: aching Consistency: constant Improves with: none Worsens with: none Associated Symptoms: malaise, nausea/vomiting, other (Tremulous) Treatments Prior to Arrival: none - Related Data Home Medications Medication Instructions Recorded Confirmed Sucralfate [Carafate] 1 gm PO AC-BID 02/04/21 07/03/23 Ipratropium-Albuterol Nebulize 3 ml INHALATION RT-QID PRN 11/04/21 07/03/23 [Duoneb 0.5 mg-3 mg/3 ml Soln] Ziprasidone [Geodon] 40 mg PO DAILY 11/04/21 07/03/23 Pantoprazole Sodium [Protonix] 40 mg PO BID 11/12/21 07/03/23 Gabapentin 600 mg PO TID 02/28/22 07/03/23 Levothyroxine Sodium [Synthroid] 50 mcg PO DAILY 02/28/22 07/03/23 cloNIDine HCL 0.2 mg PO DAILY PRN 02/28/22 07/03/23 cloNIDine HCL 0.4 mg PO HS 02/28/22 07/03/23 rOPINIRole HCL [Requip] 0.5 mg PO HS 02/28/22 07/03/23 traZODone HCL 100 mg PO HS 02/28/22 07/03/23 Fluticasone/Umeclidin/Vilanter 1 puff INHALATION RT-DAILY 02/24/23 07/03/23 [Trelegy Ellipta 200-62.5-25] Linaclotide [Linzess] 290 mcg PO DAILY 02/24/23 07/03/23 Montelukast [Singulair] 10 mg PO DAILY 02/24/23 07/03/23 Ziprasidone [Geodon] 60 mg PO HS 02/24/23 07/03/23 Atorvastatin Calcium 10 mg PO DAILY 07/03/23 07/03/23 Desvenlafaxine Succinate [Pristiq 25 mg PO DAILY 07/03/23 07/03/23 ER] Ergocalciferol (Vitamin D2) 1,250 mcg PO MO 07/03/23 07/03/23 [Drisdol (50,000 Iu)] Famotidine [Pepcid] 20 mg PO BID 07/03/23 07/03/23 Fluticasone Nasal [place] [Flonase 1 spray EA NOSTRIL DAILY PRN 07/03/23 07/03/23 Nasal [place]] HYDROcodone/APAP 5-325MG [[place] 1 tab PO TID PRN 07/03/23 07/03/23 5-325] Promethazine HCl 12.5 mg PO QID PRN 07/03/23 07/03/23 lamoTRIgine [LaMICtal] 100 mg PO BID 07/03/23 07/03/23 Previous Rx's Medication Instructions Recorded Venlafaxine HCl [Effexor] 100 mg PO DAILY #14 tab 07/03/23 Allergies Allergy/AdvReac Type Severity Reaction Status Date / Time amoxicillin Allergy Anaphylaxis Verified 07/03/23 16:29 Review of Systems ROS Statement: Those systems with pertinent positive or pertinent negative responses have been documented in the HPI. ROS Other: All systems not noted in ROS Statement are negative. Constitutional: Reports: weakness. Denies: fever, chills Eyes: Denies: vision change Respiratory: Denies: cough, dyspnea Cardiovascular: Denies: chest pain, palpitations Gastrointestinal: Reports: nausea. Denies: abdominal pain, vomiting, diarrhea Genitourinary: Denies: dysuria, hematuria Musculoskeletal: Denies: back pain Skin: Denies: rash Neurological: Reports: headache, paresthesias. Denies: weakness, numbness Psychiatric: Reports: anxiety. Denies: homicidal thoughts, suicidal thoughts Past Medical History Past Medical History: COPD, GERD/Reflux, Renal Disease, Thyroid Disorder Additional Past Medical History / Comment(s): cysts on (R) kidney. PARATHYROID REMOVED, NAUSEA, CONSTIPATION, History of Any Multi-Drug Resistant Organisms: None Reported Past Surgical History: Cholecystectomy, Hysterectomy Additional Past Surgical History / Comment(s): parathyroidectomy Past Anesthesia/Blood Transfusion Reactions: No Reported Reaction Additional Past Anesthesia/Blood Transfusion Reaction / Comment(s): "Have woken up during surgery before" COLONOSCOPY AND EGD " Past Psychological History: Anxiety, Bipolar, Depression Smoking Status: Current every day smoker Past Alcohol Use History: None Reported Past Drug Use History: None Reported - Past Family History Father Family Medical History: Cancer, Coronary Artery Disease (CAD) Additional Family Medical History / Comment(s): Father is of blood ca ncer. Mother Family Medical History: Coronary Artery Disease (CAD) Additional Family Medical History / Comment(s): KIDNEY DISEASE Son(s) Family Medical History: Cancer Additional Family Medical History / Comment(s): Brain tumor - . Sister(s) Family Medical History: Cancer Additional Family Medical History / Comment(s): Breast cancer. General Exam Limitations: no limitations General appearance: alert, in no apparent distress Head exam: Present: atraumatic, normocephalic Eye exam: Present: normal appearance, PERRL, EOMI. Absent: scleral icterus, conjunctival injection, nystagmus ENT exam: Present: mucous membranes dry Neck exam: Present: normal inspection, full ROM Respiratory exam: Present: normal lung sounds bilaterally. Absent: respiratory distress, wheezes, rales, rhonchi, stridor Cardiovascular Exam: Present: normal rhythm, tachycardia, normal heart sounds. Absent: systolic murmur, diastolic murmur, rubs, gallop GI/Abdominal exam: Present: soft. Absent: distended, tenderness, guarding, rebound, rigid, mass Extremities exam: Present: normal inspection, normal capillary refill. Absent: pedal edema, calf tenderness Back exam: Present: normal inspection. Absent: CVA tenderness (R), CVA tenderness (L) Neurological exam: Present: alert, CN II-XII intact. Absent: motor sensory deficit Psychiatric exam: Present: anxious. Absent: depressed, agitated, manic, homicidal ideation, suicidal ideation Skin exam: Present: warm, dry, intact, normal color. Absent: rash Course Vital Signs 07/03/23 07/03/23 07/03/23 00:30 02:28 02:58 Temperature 97.9 F Pulse Rate 121 H 100 Respiratory 16 18 16 Rate Blood Pressure 177/95 147/97 O2 Sat by Pulse 100 98 Oximetry 07/03/23 03:03 Temperature 97.9 F Pulse Rate 100 Respiratory 16 Rate Blood Pressure 147/97 O2 Sat by Pulse 98 Oximetry Medical Decision Making - Medical Decision Making This patient is 63-year-old woman presenting with a constellation of symptoms that started after her antidepressant medication was changed abruptly from relatively high dose of venlafaxine to low dose of desvenlafaxine. I discussed with the patient that I believe that the symptoms are due to the marked dose decrease, and did recommend taper of the medication to manage the probable withdrawal symptoms. Discussed appropriate follow-up and further care as well as return parameters. Was pt. sent in by a medical professional or institution (, AUDI, [employer] SUPERVISOR, urgent care, hospital, or alf...) When possible be specific @ -[No] Did you speak to anyone other than the patient for history (EMS, parent, family, police, friend...)? What history was obtained from this source @ -[No] Did you review nursing and triage notes (agree or disagree)? Why? @ -[I reviewed and agree with nursing and triage notes] Were old charts reviewed (outside hosp., previous admission, EMS record, old EKG, old radiological studies, urgent care reports/EKG's, alf records)? Report findings @ -[No old charts were reviewed] Differential Diagnosis (chest pain, altered mental status, abdominal pain women, abdominal pain men, vaginal bleeding, weakness, fever, dyspnea, syncope, headache, dizziness, GI bleed, back pain, seizure, CVA, palpatations, mental health, musculoskeletal)? @ -[Differential Altered Mental Status: Hypoglycemia, DKA, hypercapnia, ETOH, overdose, CO poisoning, trauma, myxedema coma, HTN encephalopathy, infection, encephalitis, psychosis, intercranial hemorrhage, hepatic encephalopathy, meningitis, CVA, this is not meant to be an all-inclusive list EKG interpreted by me (3pts min.). @ -[As above] X-rays interpreted by me (1pt min.). @ -[None done] CT interpreted by me (1pt min.). @ -[None done] U/S interpreted by me (1pt. min.). @ -[None done] What testing was considered but not performed or refused? (CT, X-rays, U/S, labs)? Why? @ -[None] What meds were considered but not given or refused? Why? @ -[None] Did you discuss the management of the patient with other professionals (professionals i.e. Dr., PA, [employer] SUPERVISOR, lab, RT, psych nurse, social service coordinator, feed in worker, teacher, disciplinary hearing officer, caseworker protective services)? Give summary @ -[No] Was smoking cessation discussed for >3mins.? @ -[No] Was critical care preformed (if so, how long)? @ -[No] Were there social determinants of health that impacted care today? How? (Homelessness, low income, unemployed, alcoholism, drug addiction, transportation, low edu. Level, literacy, decrease access to med. care, custodial, rehab)? @ -[No] Was there de-escalation of care discussed even if they declined (Discuss DNR or withdrawal of care, Hospice)? DNR status @ -[No] What co-morbidities impacted this encounter? (DM, HTN, Smoking, COPD, CAD, Cancer, CVA, ARF, Chemo, Hep., AIDS, mental health diagnosis, sleep apnea, morbid obesity)? @ -[None] Was patient admitted / discharged? Hospital course, mention meds given and route, prescriptions, significant lab abnormalities, going to OR and other pertinent info. @ -[Discharged, see above Undiagnosed new problem with uncertain prognosis? @ -[No] Drug Therapy requiring intensive monitoring for toxicity (Heparin, Nitro, Insulin, Cardizem)? @ -[No] Were any procedures done? @ -[No] Diagnosis/symptom? @ -[Acute venlafaxine withdrawal Acute headache, secondary to withdrawal Acute, or Chronic, or Acute on Chronic? @ -[Acute Uncomplicated (without systemic symptoms) or Complicated (systemic symptoms)? @ -[Uncomplicated Side effects of treatment? @ -[No] Exacerbation, Progression, or Severe Exacerbation? @ -[No] Poses a threat to life or bodily function? How? (Chest pain, [place], DC, pneumonia, PE, COPD, DKA, ARF, appy, cholecystitis, CVA, Diverticulitis, Homicidal, Suicidal, threat to staff... and all critical care pts) @ -[No] Disposition Clinical Impression: Withdrawal complaint, Headache Disposition: HOME SELF-CARE Condition: Good Prescriptions: Venlafaxine HCl [Effexor] 100 mg PO DAILY #14 tab Is patient prescribed a controlled substance at d/c from ED?: No Referrals: Ray Segovia MD [Primary Care Provider] - 1-2 days
[2023-07-03 02:31] VITALS: BP 147/97; PULSE 100
[2023-07-03 03:04] VITALS: RESP 16
== END 2023-07-03 03:04 | disposition home or self-care (01) ==
LOC: EC 00:24
DX: F15.93 Other stimulant use, unspecified with withdrawal (principal); R51.9 Headache, unspecified; J44.9 Chronic obstructive pulmonary disease, unspecified; K21.9 Gastro-esophageal reflux disease without esophagitis; E07.9 Disorder of thyroid, unspecified; F41.9 Anxiety disorder, unspecified; F31.9 Bipolar disorder, unspecified; F17.200 Nicotine dependence, unspecified, uncomplicated; Z79.899 Other long term (current) drug therapy; Z79.890 Hormone replacement therapy; Z79.51 Long term (current) use of inhaled steroids; Z88.0 Allergy status to penicillin
CPT/HCPCS: 99283

== ENCOUNTER → 2023-07-06 | Outpatient (CLI) | payer MEDICARE ==
[2023-07-07 01:46] LABS: Basophils # (A) 0.03 X 10*3/uL (0.00-0.10); Basophils % (A) 0.4 %; Eosinophils # (A) 0.01 X 10*3/uL (0.04-0.35); Eosinophils % (A) 0.1 %; HCT 40.9 % (37.2-46.3); HGB 13.6 d/dL (12.0-15.0); Lymphocytes # (A) 2.08 X 10*3/uL (0.90-5.00); Lymphocytes % (A) 26.3 %; MCH 30.9 pg (27.0-32.0); MCHC 33.3 d/dL (32.0-37.0); Mean Platelet Volume 9.8 FL (9.5-12.2); Monocytes # (A) 0.75 X 10*3/uL (0.20-1.00); Monocytes % (A) 9.5 %; NRBC Per 100 WBC 0 X 10*3/uL (0.00-0.01); Neutrophils # (A) 5.02 X 10*3/uL (1.80-7.70); Neutrophils % (A) 63.4 %; Platelet Count 268 X 10*3/uL (140-440); RDW 13.8 % (11.5-14.5); WBC 7.91 X 10*3/uL (4.50-10.00)
[2023-07-07 12:46] LABS: IgG Subclass 1 324.6 mg/dL (382.40-928.60); IgG Subclass 2 139.4 mg/dL (241.80-700.30); IgG Subclass 3 28.8 mg/dL (21.82-176.00); IgG Subclass 4 7.9 mg/dL (3.92-86.40)
[2023-07-07 13:59] LABS: T4/T8 Ratio (CD4:CD8) 1.9 (1.0-3.7)
== END | disposition home or self-care (01) ==
LOC: LABWHC1 14:31
PROVIDERS: ATTEND Internal Medicine
DX: J32.9 Chronic sinusitis, unspecified (principal)
CPT/HCPCS: 36415; 82784; 82787; 85025; 86355; 86357; 86359; 86360

== ENCOUNTER → 2023-07-24 | Outpatient (CLI) | payer MEDICARE ==
--- NOTE | 2023-07-24 11:57 | XR ---
EXAMINATION TYPE: XR abdomen complete w decub DATE OF EXAM: 07/24/2023 COMPARISON: 04/25/2022 HISTORY: 63-year-old female K59.00, constipation and loose stools for 2 weeks TECHNIQUE: Supine, upright, and left side down lateral decubitus views of the abdomen are obtained. FINDINGS: Lung bases are clear. No evidence for free intraperitoneal air. There are scattered promine nt small bowel loops measuring up to 2.7 cm with multiple air-fluid levels. However, there is air and stool throughout the colon extending distally to the rectum. Moderate stool in the left side of the abdomen. Several air-fluid levels are likely relocated in the right side of the colon as well cholecy stectomy clips. IMPRESSION: 1. Prominent scattered small bowel air-fluid levels. However, no abnormal dilatation is seen. Some ai r-fluid levels/liquid stool may be present in the right side of the colon as well. Correlate for ente ritis/ileus. The overall bowel gas pattern is nonobstructive. 2. Moderate solid stool in the left side of the abdomen.
== END | disposition home or self-care (01) ==
LOC: RADXRMAIN 09:51
PROVIDERS: ATTEND Internal Medicine Gastroenterology
DX: K59.00 Constipation, unspecified (principal)
CPT/HCPCS: 74021

== ENCOUNTER 2023-07-27 21:13 | Emergency (ER) | payer MEDICARE ==
[2023-07-27 21:32] LABS: Glucose,Whole Blood 124 mg/dL (70-110)
[2023-07-27] MEDS ORDERED: SODIUM CHLORIDE 0.9% 1,000 ML IV STA (21:40)
--- NOTE | 2023-07-27 21:51 | ED ---
General Adult HPI - General Chief complaint: Weakness Stated complaint: Weakness Time Seen by Provider: 07/27/23 21:14 Source: patient Mode of arrival: ambulatory Limitations: no limitations - History of Present Illness Initial comments: Dictation was produced using [employer] dictation software. please excuse any grammatical, word or spelling errors. Chief Complaint: 63-year-old female presents with generalized weakness History of Present Illness: Patient 63-year-old female she has been battling URI type symptoms for the last 3-4 weeks. Seen by primary care doctor and completed a course of steroids, breathing treatments and Z-Bj. States that she's not really improving. States that she feels congested in her chest. She states that she is here today because she feels significantly weak. She tachycardic over test at home that was negative. Denies any pain complaints. No numbness and paresthesias to the arms or legs. Planes of abdominal upset but denies any abdominal pain The ROS documented in this emergency department record has been reviewed and confirmed by me. Those systems with pertinent positive or negative responses have been documented in the HPI. All other systems are other negative and/or noncontributory. - Related Data Home Medications Medication Instructions Recorded Confirmed Sucralfate [Carafate] 1 gm PO AC-BID 02/04/21 07/03/23 Ipratropium-Albuterol Nebulize 3 ml INHALATION RT-QID PRN 11/04/21 07/03/23 [Duoneb 0.5 mg-3 mg/3 ml Soln] Ziprasidone [Geodon] 40 mg PO DAILY 11/04/21 07/03/23 Pantoprazole Sodium [Protonix] 40 mg PO BID 11/12/21 07/03/23 Gabapentin 600 mg PO TID 02/28/22 07/03/23 Levothyroxine Sodium [Synthroid] 50 mcg PO DAILY 02/28/22 07/03/23 cloNIDine HCL 0.2 mg PO DAILY PRN 02/28/22 07/03/23 cloNIDine HCL 0.4 mg PO HS 02/28/22 07/03/23 rOPINIRole HCL [Requip] 0.5 mg PO HS 02/28/22 07/03/23 traZODone HCL 100 mg PO HS 02/28/22 07/03/23 Fluticasone/Umeclidin/Vilanter 1 puff INHALATION RT-DAILY 02/24/23 07/03/23 [Trelegy Ellipta 200-62.5-25] Linaclotide [Linzess] 290 mcg PO DAILY 02/24/23 07/03/23 Montelukast [Singulair] 10 mg PO DAILY 02/24/23 07/03/23 Ziprasidone [Geodon] 60 mg PO HS 02/24/23 07/03/23 Atorvastatin Calcium 10 mg PO DAILY 07/03/23 07/03/23 Desvenlafaxine Succinate [Pristiq 25 mg PO DAILY 07/03/23 07/03/23 ER] Ergocalciferol (Vitamin D2) 1,250 mcg PO MO 07/03/23 07/03/23 [Drisdol (50,000 Iu)] Famotidine [Pepcid] 20 mg PO BID 07/03/23 07/03/23 Fluticasone Nasal [place] [Flonase 1 spray EA NOSTRIL DAILY PRN 07/03/23 07/03/23 Nasal [place]] HYDROcodone/APAP 5-325MG [[place] 1 tab PO TID PRN 07/03/23 07/03/23 5-325] Promethazine HCl 12.5 mg PO QID PRN 07/03/23 07/03/23 lamoTRIgine [LaMICtal] 100 mg PO BID 07/03/23 07/03/23 Previous Rx's Medication Instructions Recorded Venlafaxine HCl [Effexor] 100 mg PO DAILY #14 tab 07/03/23 Allergies Allergy/AdvReac Type Severity Reaction Status Date / Time amoxicillin Allergy Anaphylaxis Verified 07/27/23 21:17 Review of Systems ROS Statement: Those systems with pertinent positive or pertinent negative responses have been documented in the HPI. ROS Other: All systems not noted in ROS Statement are negative. Past Medical History Past Medical History: COPD, GERD/Reflux, Renal Disease, Thyroid Disorder Additional Past Medical History / Comment(s): cysts on (R) kidney. PARATHYROID REMOVED, NAUSEA, CONSTIPATION, History of Any Multi-Drug Resistant Organisms: None Reported Past Surgical History: Cholecystectomy, Hysterectomy Additional Past Surgical History / Comment(s): parathyroidectomy Past Anesthesia/Blood Transfusion Reactions: No Reported Reaction Additional Past Anesthesia/Blood Transfusion Reaction / Comment(s): "Have woken up during surgery before" COLONOSCOPY AND EGD " Past Psychological History: Anxiety, Bipolar, Depression Smoking Status: Current every day smoker Past Alcohol Use History: None Reported Past Drug Use History: None Reported - Past Family History Father Family Medical History: Cancer, Coronary Artery Disease (CAD) Additional Family Medical History / Comment(s): Father is of blood cancer. Mother Family Medical History: Coronary Artery Disease (CAD) Additional Family Medical History / Comment(s): KIDNEY DISEASE Son(s) Family Medical History: Cancer Additional Family Medical History / Comment(s): Brain tumor - . Sister(s) Family Medical History: Cancer Additional Family Medical History / Comment(s): Breast cancer. General Exam - General Exam Comments Initial Comments: PHYSICAL EXAM: General Impression: Alert and oriented x3, not in acute distress HEENT: Normocephalic atraumatic, extra-ocular movements intact, pupils equal and reactive to light bilaterally, mucous membranes moist. Cardiovascular: Heart regular rate and rhythm Chest: Able to complete full sentences, no retractions, no tachypnea, lungs clear to auscultation bilaterally Abdomen: abdomen soft, non-tender, non-distended, no organomegaly Musculoskeletal: Pulses present and equal in all extremities, no peripheral edema Motor: no focal deficits noted Neurological: CN II-XII grossly intact, no focal motor or sensory deficits noted Skin: Intact with no visualized rashes Psych: Normal affect and mood Limitations: no limitations Course Vital Signs 07/27/23 07/27/23 21:14 23:23 Temperature 98.5 F Pulse Rate 85 68 Respiratory 20 18 Rate Blood Pressure 121/71 109/65 O2 Sat by Pulse 98 97 Oximetry - Reevaluation(s) Reevaluation #1: 07/27/23 22:28 My EKG interpretation: Ventricular rate 61, sinus rhythm, SC interval 136, QRS 110, QTc 436. No SC prolongation, no QTC prolongation, no ST or T-wave changes noted. Overall, this EKG is unremarkable Medical Decision Making - Medical Decision Making Was pt. sent in by a medical professional or institution (, PA, SAUSAGE SMOKER, urgent care, hospital, or skilled nursing...) When possible be specific @ -No Did you speak to anyone other than the patient for history (EMS, parent, family, police, friend...)? What history was obtained from this source @ -No Did you review nursing and triage notes (agree or disagree)? Why? @ -I reviewed and agree with nursing and triage notes Were old charts reviewed (outside hosp., previous admission, EMS record, old EKG, old radiological studies, urgent care reports/EKG's, skilled nursing records)? Report findings @ -No old charts were reviewed Differential Diagnosis (chest pain, altered mental status, abdominal pain women, abdominal pain men, vaginal bleeding, musculoskeletal, weakness, fever, dyspnea, syncope, headache, dizziness, GI bleed, back pain, seizure, CVA, palpatations, mental health)? @ -Differential Weakness: Hypoglycemia, shock, sepsis, hyponatremia, anemia, infection, AL, ETOH, adverse medicine reaction, overdose, stroke, this is not meant to be an all-inclusive list. EKG interpreted by me (3pts min.). @ -None done X-rays interpreted by me (1pt min.). @ -2 view chest x-ray is unremarkable CT interpreted by me (1pt min.). @ -None done U/S interpreted by me (1pt. min.). @ -None done What testing was considered but not performed or refused? (CT, X-rays, U/S, labs)? Why? @ -None What meds were considered but not given or refused? Why? @ -None Did you discuss the management of the patient with other professionals (professionals i.e. , PA, SAUSAGE SMOKER, lab, RT, psych nurse, social work coordinator, mail distributor, teacher, driver license reviewing officer, nurse case manager)? Give summary @ -No Was smoking cessation discussed for >3mins.? @ -No Was critical care preformed (if so, how long)? @ -No Were there social determinants of health that impacted care today? How? (Homelessness, low income, unemployed, alcoholism, drug addiction, transportation, low edu. Level, literacy, decrease access to med. care, care home, rehab)? @ -No Was there de-escalation of care discussed even if they declined (Discuss DNR or withdrawal of care, Hospice)? DNR status @ -No What co-morbidities impacted this encounter? (DM, HTN, Smoking, COPD, CAD, Cancer, CVA, ARF, Chemo, Hep., AIDS, mental health diagnosis, sleep apnea, morbid obesity)? @ -None Was patient admitted / discharged? Hospital course, mention meds given and route, prescriptions, significant lab abnormalities, going to OR and other pertinent info. @ -63-year-old female presents emergency department with chief complaint of weakness. Vital signs are stable. Patient's will. The bedside. She is to dealing with URI type symptoms for the last couple weeks. Laboratory evaluation obtained unremarkable. Patient given IV fluids reevaluated at bedside at 12 AM found to be within stable medical condition. Patient agreeable with discharged told to follow-up with primary care doctor. Undiagnosed new problem with uncertain prognosis? @ -No Drug Therapy requiring intensive monitoring for toxicity (Heparin, Nitro, Insulin, Cardizem)? @ -No Were any procedures done? @ -No Diagnosis/symptom? Acute, or Chronic, or Acute on Chronic? Uncomplicated (without systemic symptoms) or Complicated (systemic symptoms)? @ -Generalized weakness Side effects of treatment? @ -No Exacerbation, Progression, or Severe Exacerbation? @ -No Poses a threat to life or bodily function? How? (Chest pain, USA, AL, pneumonia, PE, COPD, DKA, ARF, appy, cholecystitis, CVA, Diverticulitis, Homicidal, Suicidal, threat to staff... and all critical care pts) @ -No - Lab Data Result diagrams: 07/27/23 21:50 07/27/23 21:50 Lab Results 07/27/23 07/27/23 07/27/23 Range/Units 21:29 21:50 21:50 WBC 13.4 H (3.8-10.6) k/uL RBC 4.56 (3.80-5.40) m/uL Hgb 14.0 (11.4-16.0) gm/dL Hct 42.3 (34.0-46.0) % MCV 92.7 (80.0-100.0) fL MCH 30.6 (25.0-35.0) pg MCHC 33.0 (31.0-37.0) g/dL RDW 14.0 (11.5-15.5) % Plt Count 355 (150-450) k/uL MPV 7.3 Neutrophils % 70 % Lymphocytes % 21 % Monocytes % 7 % Eosinophils % 1 % Basophils % 0 % Neutrophils # 9.4 H (1.3-7.7) k/uL Lymphocytes # 2.8 (1.0-4.8) k/uL Monocytes # 0.9 (0-1.0) k/uL Eosinophils # 0.2 (0-0.7) k/uL Basophils # 0.0 (0-0.2) k/uL Sodium 136 L (137-145) mmol/L Potassium 4.3 (3.5-5.1) mmol/L Chloride 104 (98-107) mmol/L Carbon Dioxide 23 (22-30) mmol/L Anion Gap 9 mmol/L BUN 20 H (7-17) mg/dL Creatinine 1.15 H (0.52-1.04) mg/dL Est GFR (CKD-EPI)AfAm 59 (>60 ml/min/1.73 sqM) Est GFR (CKD-EPI)NonAf 51 (>60 ml/min/1.73 sqM) Glucose 113 H (74-99) mg/dL POC Glucose (mg/dL) 124 H (70-110) mg/dL POC Glu Second Butler ID [place], Antonio Plasma Lactic Acid Jorge (0.7-2.0) mmol/L Calcium 9.7 (8.4-10.2) mg/dL Magnesium 1.9 (1.6-2.3) mg/dL Total Bilirubin 0.5 (0.2-1.3) mg/dL AST 28 (14-36) U/L ALT 33 (4-34) U/L Alkaline Phosphatase 171 H (38-126) U/L Total Protein 6.7 (6.3-8.2) g/dL Albumin 4.1 (3.5-5.0) g/dL Urine Color Urine Appearance (Clear) Urine pH (5.0-8.0) Ur Specific [place] (1.001-1.035) Urine Protein (Negative) Urine Glucose (UA) (Negative) Urine Ketones (Negative) Urine Blood (Negative) Urine Nitrite (Negative) Urine Bilirubin (Negative) Urine Urobilinogen (<2.0) mg/dL Ur Leukocyte Esterase (Negative) Urine RBC (0-5) /hpf Urine WBC (0-5) /hpf Ur Squamous Epith Cells (0-4) /hpf Amorphous Sediment (None) /hpf Hyaline Casts (0-2) /lpf Urine Mucus (None) /hpf Heterophile Antibody (Negative) Influenza Type A (PCR) (Not Detectd) Influenza Type B (PCR) (Not Detectd) RSV (PCR) (Not Detectd) SARS-CoV-2 (PCR) (Not Detectd) 07/27/23 07/27/23 07/27/23 Range/Units 21:50 21:50 21:50 WBC (3.8-10.6) k/uL RBC (3.80-5.40) m/uL Hgb (11.4-16.0) gm/dL Hct (34.0-46.0) % MCV (80.0-100.0) fL MCH (25.0-35.0) pg MCHC (31.0-37.0) g/dL RDW (11.5-15.5) % Plt Count (150-450) k/uL MPV Neutrophils % % Lymphocytes % % Monocytes % % Eosinophils % % Basophils % % Neutrophils # (1.3-7.7) k/uL Lymphocytes # (1.0-4.8) k/uL Monocytes # (0-1.0) k/uL Eosinophils # (0-0.7) k/uL Basophils # (0-0.2) k/uL Sodium (137-145) mmol/L Potassium (3.5-5.1) mmol/L Chloride (98-107) mmol/L Carbon Dioxide (22-30) mmol/L Anion Gap mmol/L BUN (7-17) mg/dL Creatinine (0.52-1.04) mg/dL Est GFR (CKD-EPI)AfAm (>60 ml/min/1.73 sqM) Est GFR (CKD-EPI)NonAf (>60 ml/min/1.73 sqM) Glucose (74-99) mg/dL POC Glucose (mg/dL) (70-110) mg/dL POC Glu Second Butler ID Plasma Lactic Acid Jorge 0.8 (0.7-2.0) mmol/L Calcium (8.4-10.2) mg/dL Magnesium (1.6-2.3) mg/dL Total Bilirubin (0.2-1.3) mg/dL AST (14-36) U/L ALT (4-34) U/L Alkaline Phosphatase (38-126) U/L Total Protein (6.3-8.2) g/dL Albumin (3.5-5.0) g/dL Urine Color Yellow Urine Appearance Clear (Clear) Urine pH 5.5 (5.0-8.0) Ur Specific [place] 1.010 (1.001-1.035) Urine Protein Negative (Negative) Urine Glucose (UA) Negative (Negative) Urine Ketones Negative (Negative) Urine Blood Negative (Negative) Urine Nitrite Negative (Negative) Urine Bilirubin Negative (Negative) Urine Urobilinogen 0.2 (<2.0) mg/dL Ur Leukocyte Esterase Moderate (Negative) Urine RBC 1 (0-5) /hpf Urine WBC 1 (0-5) /hpf Ur Squamous Epith Cells 1 (0-4) /hpf Amorphous Sediment Rare H (None) /hpf Hyaline Casts 1 (0-2) /lpf Urine Mucus Rare H (None) /hpf Heterophile Antibody (Negative) Influenza Type A (PCR) Not Detected (Not Detectd) Influenza Type B (PCR) Not Detected (Not Detectd) RSV (PCR) Not Detected (Not Detectd) SARS-CoV-2 (PCR) Not Detected (Not Detectd) 07/27/23 Range/Units 21:50 WBC (3.8-10.6) k/uL RBC (3.80-5.40) m/uL Hgb (11.4-16.0) gm/dL Hct (34.0-46.0) % MCV (80.0-100.0) fL MCH (25.0-35.0) pg MCHC (31.0-37.0) g/dL RDW (11.5-15.5) % Plt Count (150-450) k/uL MPV Neutrophils % % Lymphocytes % % Monocytes % % Eosinophils % % Basophils % % Neutrophils # (1.3-7.7) k/uL Lymphocytes # (1.0-4.8) k/uL Monocytes # (0-1.0) k/uL Eosinophils # (0-0.7) k/uL Basophils # (0-0.2) k/uL Sodium (137-145) mmol/L Potassium (3.5-5.1) mmol/L Chloride (98-107) mmol/L Carbon Dioxide (22-30) mmol/L Anion Gap mmol/L BUN (7-17) mg/dL Creatinine (0.52-1.04) mg/dL Est GFR (CKD-EPI)AfAm (>60 ml/min/1.73 sqM) Est GFR (CKD-EPI)NonAf (>60 ml/min/1.73 sqM) Glucose (74-99) mg/dL POC Glucose (mg/dL) (70-110) mg/dL POC Glu Second Butler ID Plasma Lactic Acid Jorge (0.7-2.0) mmol/L Calcium (8.4-10.2) mg/dL Magnesium (1.6-2.3) mg/dL Total Bilirubin (0.2-1.3) mg/dL AST (14-36) U/L ALT (4-34) U/L Alkaline Phosphatase (38-126) U/L Total Protein (6.3-8.2) g/dL Albumin (3.5-5.0) g/dL Urine Color Urine Appearance (Clear) Urine pH (5.0-8.0) Ur Specific [place] (1.001-1.035) Urine Protein (Negative) Urine Glucose (UA) (Negative) Urine Ketones (Negative) Urine Blood (Negative) Urine Nitrite (Negative) Urine Bilirubin (Negative) Urine Urobilinogen (<2.0) mg/dL Ur Leukocyte Esterase (Negative) Urine RBC (0-5) /hpf Urine WBC (0-5) /hpf Ur Squamous Epith Cells (0-4) /hpf Amorphous Sediment (None) /hpf Hyaline Casts (0-2) /lpf Urine Mucus (None) /hpf Heterophile Antibody Negative (Negative) Influenza Type A (PCR) (Not Detectd) Influenza Type B (PCR) (Not Detectd) RSV (PCR) (Not Detectd) SARS-CoV-2 (PCR) (Not Detectd) Disposition Clinical Impression: Weakness Disposition: HOME SELF-CARE Condition: Good Instructions (If sedation given, give patient instructions): Weakness (ED) Is patient prescribed a controlled substance at d/c from ED?: No Referrals: Ray Segovia MD [Primary Care Provider] - 1-2 days Time of Disposition: 23:54
[2023-07-27 22:20] LABS: Basophils % (A) 0 %; Eosinophils # (A) 0.2 k/uL (0-0.7); Eosinophils % (A) 1 %; HCT 42.3 % (34.0-46.0); Lymphocytes # (A) 2.8 k/uL (1.0-4.8); Lymphocytes % (A) 21 %; MCH 30.6 pg (25.0-35.0); MCV 92.7 fL (80.0-100.0); Mean Platelet Volume 7.3; Monocytes # (A) 0.9 k/uL (0-1.0); Monocytes % (A) 7 %; Neutrophils # (A) 9.4 k/uL (1.3-7.7); Neutrophils % (A) 70 %; Platelet Count 355 k/uL (150-450); RBC 4.56 m/uL (3.80-5.40); WBC 13.4 k/uL (3.8-10.6)
[2023-07-27 22:23] LABS: ALT 33 U/L (4-34); AST 28 U/L (14-36); African American GFR (CKD) 59 (>60 ml/min/1.73 sqM); Albumin 4.1 g/dL (3.5-5.0); Alkaline Phosphatase 171 U/L (38-126); Anion Gap 9 mmol/L; Blood Urea Nitrogen 20 mg/dL (7-17); Calcium 9.7 mg/dL (8.4-10.2); Carbon Dioxide 23 mmol/L (22-30); Chloride 104 mmol/L (98-107); Glucose 113 mg/dL (74-99); Magnesium 1.9 mg/dL (1.6-2.3); Non-African American GFR(CKD) 51 (>60 ml/min/1.73 sqM); Potassium 4.3 mmol/L (3.5-5.1); Sodium 136 mmol/L (137-145); Total Bilirubin 0.5 mg/dL (0.2-1.3); Total Protein 6.7 g/dL (6.3-8.2)
[2023-07-27 22:42] LABS: Amorphous Sediment,Urine Rare /hpf; Hyaline Casts,Urine 1 /lpf (0-2); Mucus,Urine Rare /hpf; RBC,Urine 1 /hpf (0-5); Squamous Epithelial Cell,Urine 1 /hpf (0-4); WBC,Urine 1 /hpf (0-5)
[2023-07-27 23:18] LABS: Appearance,Urine Clear (Clear); Bilirubin,Urine Negative (Negative); Blood,Urine Negative (Negative); Color,Urine Yellow; Glucose,Urine (UA) Negative (Negative); Ketones,Urine Negative (Negative); Leukocyte Esterase,Urine Moderate (Negative); Nitrite,Urine Negative (Negative); PH, Urine 5.5 (5.0-8.0); Protein,Urine Negative (Negative); Urobilinogen,Urine 0.2 mg/dL (<2.0)
--- NOTE | 2023-07-27 23:22 | XR ---
EXAM: XR Chest, 2 Views CLINICAL HISTORY: ITS.REASON XR Reason: weak TECHNIQUE: Frontal and lateral views of the chest. COMPARISON: No relevant prior studies available. FINDINGS: Lungs: Unremarkable. No consolidation. Pleural space: Unremarkable. No pneumothorax. Heart: Unremarkable. No cardiomegaly. Mediastinum: Unremarkable. Bones/joints: Unremarkable. IMPRESSION: Normal chest x-rays.
[2023-07-27 23:32] VITALS: RESP 18
[2023-07-27] MEDS ORDERED: ONDANSETRON 4 MG/2 ML VIAL IVP STA (23:34)
[2023-07-28 00:37] VITALS: BP 102/70; PULSE 72; TEMP 97.9
== END 2023-07-28 00:40 | disposition home or self-care (01) ==
LOC: EC 21:13
DX: R53.1 Weakness (principal); J44.9 Chronic obstructive pulmonary disease, unspecified; K21.9 Gastro-esophageal reflux disease without esophagitis; E07.9 Disorder of thyroid, unspecified; F41.9 Anxiety disorder, unspecified; F31.9 Bipolar disorder, unspecified; F17.200 Nicotine dependence, unspecified, uncomplicated; Z88.0 Allergy status to penicillin; Z79.890 Hormone replacement therapy; Z79.51 Long term (current) use of inhaled steroids; Z79.899 Other long term (current) drug therapy; Z20.822 Contact with and (suspected) exposure to COVID-19
CPT/HCPCS: 36415; 93005; 80053; 83605; 83735; 85025; 86308; 81001; 87636; 71046; 99285; 96374; 96361 ×2; J2405

== ENCOUNTER 2023-08-03 17:16 | Emergency (ER) | payer MEDICARE ==
--- NOTE | 2023-08-03 17:22 | ED ---
General Adult HPI - General Stated complaint: congestion,coughing - History of Present Illness Initial comments: The patient is a 63 a female presents emergency room with complaints of cough and congestion. - Related Data Home Medications Medication Instructions Recorded Confirmed Sucralfate [Carafate] 1 gm PO AC-BID 02/04/21 08/07/23 Ipratropium-Albuterol Nebulize 3 ml INHALATION RT-QID PRN 11/04/21 08/07/23 [Duoneb 0.5 mg-3 mg/3 ml Soln] Ziprasidone [Geodon] 40 mg PO DAILY 11/04/21 08/07/23 Pantoprazole Sodium [Protonix] 40 mg PO BID 11/12/21 08/07/23 Gabapentin 600 mg PO TID 02/28/22 08/07/23 Levothyroxine Sodium [Synthroid] 50 mcg PO DAILY 02/28/22 08/07/23 cloNIDine HCL 0.2 mg PO DAILY PRN 02/28/22 08/07/23 cloNIDine HCL 0.4 mg PO HS 02/28/22 08/07/23 rOPINIRole HCL [Requip] 0.5 mg PO HS 02/28/22 08/07/23 traZODone HCL 100 mg PO HS 02/28/22 08/07/23 Fluticasone/Umeclidin/Vilanter 1 puff INHALATION RT-DAILY 02/24/23 08/07/23 [Treleemanuel Ellipta 200-62.5-25] Linaclotide [Linzess] 290 mcg PO DAILY 02/24/23 08/07/23 Montelukast [Singulair] 10 mg PO DAILY 02/24/23 08/07/23 Ziprasidone [Geodon] 60 mg PO HS 02/24/23 08/07/23 Atorvastatin Calcium 10 mg PO DAILY 07/03/23 08/07/23 Desvenlafaxine Succinate [Pristiq 25 mg PO DAILY 07/03/23 08/07/23 ER] Ergocalciferol (Vitamin D2) 1,250 mcg PO MO 07/03/23 08/07/23 [Drisdol (50,000 Iu)] Famotidine [Pepcid] 20 mg PO BID 07/03/23 08/07/23 Fluticasone Nasal [place] [Flonase 1 spr EA NOSTRIL DAILY PRN 07/03/23 08/07/23 Nasal [place]] HYDROcodone/APAP 5-325MG [[place] 1 tab PO TID PRN 07/03/23 08/07/23 5-325] Promethazine HCl 12.5 mg PO QID PRN 07/03/23 08/07/23 lamoTRIgine [LaMICtal] 100 mg PO BID 07/03/23 08/07/23 Levofloxacin [Levaquin] 750 mg PO DAILY 08/07/23 08/07/23 Ondansetron [Zofran] 4 mg PO Q8HR PRN 08/07/23 08/07/23 Sevelamer [Renvela] 800 mg PO DAILY 08/07/23 08/07/23 Previous Rx's Medication Instructions Recorded predniSONE [Deltasone] 20 mg PO BID #8 tab 08/08/23 Allergies Allergy/AdvReac Type Severity Reaction Status Date / Time amoxicillin Allergy Anaphylaxis Verified 08/07/23 20:37 Review of Systems ROS Statement: Those systems with pertinent positive or pertinent negative responses have been documented in the HPI. ROS Other: All systems not noted in ROS Statement are negative. Past Medical History Past Medical History: COPD, GERD/Reflux, Renal Disease, Thyroid Disorder Additional Past Medical History / Comment(s): cysts on (R) kidney. PARATHYROID REMOVED, NAUSEA, CONSTIPATION, History of Any Multi-Drug Resistant Organisms: None Reported Past Surgical History: Cholecystectomy, Hysterectomy Additional Past Surgical History / Comment(s): parathyroidectomy Past Anesthesia/Blood Transfusion Reactions: No Reported Reaction Additional Past Anesthesia/Blood Transfusion Reaction / Comment(s): "Have woken up during surgery before" COLONOSCOPY AND EGD " Past Psychological History: Anxiety, Bipolar, Depression Smoking Status: Current every day smoker Past Alcohol Use History: None Reported Past Drug Use History: None Reported - Past Family History Father Family Medical History: Cancer, Coronary Artery Disease (CAD) Additional Family Medical History / Comment(s): Father is of blood cancer. Mother Family Medical History: Coronary Artery Disease (CAD) Additional Family Medical History / Comment(s): KIDNEY DISEASE Son(s) Family Medical History: Cancer Additional Family Medical History / Comment(s): Brain tumor - . Sister(s) Family Medical History: Cancer Additional Family Medical History / Comment(s): Breast cancer. General Exam - General Exam Comments Initial Comments: Visual Physical Exam Vital signs reviewed General: Well-appearing, nontoxic, no acute distress. Head: Normocephalic, atraumatic Eyes: PERRLA, EOMI ENT: Airway patent Chest: Nonlabored breathing Skin: No visual rash, normal skin tone Neuro: Alert and oriented 3 Musculoskeletal: No gross abnormalities Course Vital Signs 08/03/23 17:27 Temperature 98.1 F Pulse Rate 69 Respiratory 18 Rate Blood Pressure 114/75 O2 Sat by Pulse 98 Oximetry Medical Decision Making - Medical Decision Making Quick note portion completed by myself Pallavi Klein PAC. Considered this electronic signature Patient left AGAINST MEDICAL ADVICE from the waiting room without proper evaluation and exam. - Lab Data Lab Results 08/03/23 Range/Units 17:30 Influenza Type A (PCR) Not Detected (Not Detectd) Influenza Type B (PCR) Not Detected (Not Detectd) RSV (PCR) Not Detected (Not Detectd) SARS-CoV-2 (PCR) Not Detected (Not Detectd) Disposition Clinical Impression: Congestion of upper respiratory tract, Cough Disposition: LEFT AGAINST MEDICAL ADVICE Referrals: Ray Segovia MD [Primary Care Provider] - 1-2 days
[2023-08-03 17:42] VITALS: BP 114/75; PULSE 69; RESP 18; TEMP 98.1
--- NOTE | 2023-08-03 18:02 | XR ---
EXAMINATION TYPE: XR chest 2V DATE OF EXAM: 08/03/2023 5:41 PM CLINICAL INDICATION:Female, 63 years old with history of cough; COMPARISON: Chest radiographs from 07/27/2023 TECHNIQUE: XR chest 2V Frontal and lateral views of the chest. FINDINGS: Lungs/Pleura: Prominent interstitial lung markings are seen scattered throughout the lungs. No eviden ce of focal consolidation, pneumothorax or pleural effusion. Pulmonary vascularity: Unremarkable. Heart/mediastinum: Cardiomediastinal silhouette is unremarkable. Musculoskeletal: No acute osseous pathology. IMPRESSION: Chronic changes without acute pulmonary process. No significant change from prior.
== END 2023-08-03 18:43 | disposition left against medical advice (07) ==
LOC: EC 17:16
DX: J06.9 Acute upper respiratory infection, unspecified (principal); J44.9 Chronic obstructive pulmonary disease, unspecified; F17.200 Nicotine dependence, unspecified, uncomplicated; K21.9 Gastro-esophageal reflux disease without esophagitis; E07.9 Disorder of thyroid, unspecified; Z79.890 Hormone replacement therapy; Z86.59 Personal history of other mental and behavioral disorders; Z79.899 Other long term (current) drug therapy; Z79.51 Long term (current) use of inhaled steroids; Z53.29 Procedure and treatment not carried out because of patient's decision for other reasons; Z20.822 Contact with and (suspected) exposure to COVID-19
CPT/HCPCS: 71046; 87636; 99283

== ENCOUNTER 2023-08-07 20:28 | Emergency (ER) | payer MEDICARE ==
[2023-08-07 20:44] VITALS: RESP 18; TEMP 97.8
[2023-08-07] MEDS ORDERED: SODIUM CHLORIDE 0.9% 500 ML 500 ML IV STA (21:40)
[2023-08-07 22:24] LABS: Basophils % (A) 0 %; Eosinophils % (A) 1 %; HCT 39.5 % (34.0-46.0); HGB 13.2 gm/dL (11.4-16.0); Lymphocytes # (A) 1.9 k/uL (1.0-4.8); Lymphocytes % (A) 27 %; MCH 31.8 pg (25.0-35.0); MCHC 33.4 g/dL (31.0-37.0); MCV 95.1 fL (80.0-100.0); Mean Platelet Volume 7.9; Monocytes # (A) 0.5 k/uL (0-1.0); Monocytes % (A) 7 %; Neutrophils # (A) 4.5 k/uL (1.3-7.7); Neutrophils % (A) 64 %; Platelet Count 180 k/uL (150-450); RBC 4.15 m/uL (3.80-5.40); RDW 13.9 % (11.5-15.5)
[2023-08-07 22:30] LABS: ALT 23 U/L (4-34); AST 25 U/L (14-36); African American GFR (CKD) 51 (>60 ml/min/1.73 sqM); Albumin 3.8 g/dL (3.5-5.0); Alkaline Phosphatase 150 U/L (38-126); Anion Gap 8 mmol/L; Blood Urea Nitrogen 18 mg/dL (7-17); Calcium 9.4 mg/dL (8.4-10.2); Carbon Dioxide 21 mmol/L (22-30); Chloride 107 mmol/L (98-107); Glucose 103 mg/dL (74-99); Magnesium 1.7 mg/dL (1.6-2.3); Non-African American GFR(CKD) 45 (>60 ml/min/1.73 sqM); Potassium 3.6 mmol/L (3.5-5.1); Sodium 136 mmol/L (137-145); Total Bilirubin 0.3 mg/dL (0.2-1.3); Total Protein 6.3 g/dL (6.3-8.2)
[2023-08-07 22:34] LABS: INR 0.9 (<1.2); Prothrombin Time 10.4 sec (10.0-12.5)
--- NOTE | 2023-08-07 23:13 | XR ---
EXAM: XR Chest, 2 Views CLINICAL HISTORY: ITS.REASON XR Reason: Weakness TECHNIQUE: Frontal and lateral views of the chest. COMPARISON: 08/03/2023 FINDINGS: Lungs: Shallow inspiration with bilateral perihilar haziness. Pleural space: Unremarkable. No pneumothorax. No pleural effusions. Heart: Unremarkable. No cardiomegaly. Mediastinum: Unremarkable. Bones/joints: No acute osseous abnormalities. IMPRESSION: Shallow inspiration with bilateral perihilar haziness.
[2023-08-07 23:16] LABS: Partial Thromboplastin Time 21.6 sec (22.0-30.0)
[2023-08-08] MEDS ORDERED: predniSONE 20 MG TAB PO STA (00:20)
--- NOTE | 2023-08-08 00:20 | ED ---
Weakness HPI - General Chief complaint: Weakness Stated complaint: Weakness Time Seen by Provider: 08/07/23 20:46 Source: EMS Mode of arrival: EMS - History of Present Illness Initial comments: This patient is 63-year-old woman with complaint of generalized weakness and fatigue going back 1-2 days. She states she also thought she saw some red streaks with her stool. Patient concerned about possibility of GI bleed. Patient denies fever or chills. No chest pain, dyspnea, diaphoresis, orthostasis. Patient also has had some intermittent, diffuse, abdominal cramping. MD Complaint: generalized weakness Onset/Timin -: days(s) Location: generalized Severity: moderate Quality: other (Cramping) Consistency: intermittent Improves with: none Worsens with: none - Related Data Home Medications Medication Instructions Recorded Confirmed Sucralfate [Carafate] 1 gm PO AC-BID 02/04/21 08/07/23 Ipratropium-Albuterol Nebulize 3 ml INHALATION RT-QID PRN 11/04/21 08/07/23 [Duoneb 0.5 mg-3 mg/3 ml Soln] Ziprasidone [Geodon] 40 mg PO DAILY 11/04/21 08/07/23 Pantoprazole Sodium [Protonix] 40 mg PO BID 11/12/21 08/07/23 Gabapentin 600 mg PO TID 02/28/22 08/07/23 Levothyroxine Sodium [Synthroid] 50 mcg PO DAILY 02/28/22 08/07/23 cloNIDine HCL 0.2 mg PO DAILY PRN 02/28/22 08/07/23 cloNIDine HCL 0.4 mg PO HS 02/28/22 08/07/23 rOPINIRole HCL [Requip] 0.5 mg PO HS 02/28/22 08/07/23 traZODone HCL 100 mg PO HS 02/28/22 08/07/23 Fluticasone/Umeclidin/Vilanter 1 puff INHALATION RT-DAILY 02/24/23 08/07/23 [Trelegy Ellipta 200-62.5-25] Linaclotide [Linzess] 290 mcg PO DAILY 02/24/23 08/07/23 Montelukast [Singulair] 10 mg PO DAILY 02/24/23 08/07/23 Ziprasidone [Geodon] 60 mg PO HS 02/24/23 08/07/23 Atorvastatin Calcium 10 mg PO DAILY 07/03/23 08/07/23 Desvenlafaxine Succinate [Pristiq 25 mg PO DAILY 07/03/23 08/07/23 ER] Ergocalciferol (Vitamin D2) 1,250 mcg PO MO 07/03/23 08/07/23 [Drisdol (50,000 Iu)] Famotidine [Pepcid] 20 mg PO BID 07/03/23 08/07/23 Fluticasone Nasal [place] [Flonase 1 spr EA NOSTRIL DAILY PRN 07/03/23 08/07/23 Nasal [place]] HYDROcodone/APAP 5-325MG [[place] 1 tab PO TID PRN 07/03/23 08/07/23 5-325] Promethazine HCl 12.5 mg PO QID PRN 07/03/23 08/07/23 lamoTRIgine [LaMICtal] 100 mg PO BID 07/03/23 08/07/23 Levofloxacin [Levaquin] 750 mg PO DAILY 08/07/23 08/07/23 Ondansetron [Zofran] 4 mg PO Q8HR PRN 08/07/23 08/07/23 Sevelamer [Renvela] 800 mg PO DAILY 08/07/23 08/07/23 Previous Rx's Medication Instructions Recorded predniSONE [Deltasone] 20 mg PO BID #8 tab 08/08/23 Allergies Allergy/AdvReac Type Severity Reaction Status Date / Time amoxicillin Allergy Anaphylaxis Verified 08/07/23 20:37 Review of Systems ROS Statement: Those systems with pertinent positive or pertinent negative responses have been documented in the HPI. ROS Other: All systems not noted in ROS Statement are negative. Constitutional: Reports: weakness. Denies: fever, chills Respiratory: Denies: cough, dyspnea Cardiovascular: Denies: chest pain, palpitations, edema, syncope Gastrointestinal: Reports: abdominal pain, other (Red streaks). Denies: nausea, vomiting, diarrhea Genitourinary: Denies: dysuria, hematuria Musculoskeletal: Denies: back pain Skin: Denies: rash Neurological: Denies: headache Hematological/Lymphatic: Denies: easy bleeding Past Medical History Past Medical History: COPD, GERD/Reflux, Renal Disease, Thyroid Disorder Additional Past Medical History / Comment(s): cysts on (R) kidney. PARATHYROID REMOVED, NAUSEA, CONSTIPATION, History of Any Multi-Drug Resistant Organisms: None Reported Past Surgical History: Cholecystectomy, Hysterectomy Additional Past Surgical History / Comment(s): parathyroidectomy Past Anesthesia/Blood Transfusion Reactions: No Reported Reaction Additional Past Anesthesia/Blood Transfusion Reaction / Comment(s): "Have woken up during surgery before" COLONOSCOPY AND EGD " Past Psychological History: Anxiety, Bipolar, Depression Smoking Status: Current every day smoker Past Alcohol Use History: None Reported Past Drug Use History: None Reported - Past Family History Father Family Medical History: Cancer, Coronary Artery Disease (CAD) Additional Family Medical History / Comment(s): Father is of blood cancer. Mother Family Medical History: Coronary Artery Disease (CAD) Additional Family Medical History / Comment(s): KIDNEY DISEASE Son(s) Family Medical History: Cancer Additional Family Medical History / Comment(s): Brain tumor - . Sister(s) Family Medical History: Cancer Additional Family Medical History / Comment(s): Breast cancer. General Exam General appearance: alert, in no apparent distress Head exam: Present: atraumatic, normocephalic Eye exam: Present: normal appearance. Absent: scleral icterus, conjunctival injection ENT exam: Present: normal oropharynx Neck exam: Present: normal inspection Respiratory exam: Present: wheezes. Absent: respiratory distress, rales, rhonchi, stridor Cardiovascular Exam: Present: regular rate, normal rhythm, normal heart sounds. Absent: systolic murmur, diastolic murmur, rubs, gallop GI/Abdominal exam: Present: soft. Absent: distended, tenderness, guarding, rebound, rigid, mass Extremities exam: Present: normal inspection, normal capillary refill. Absent: pedal edema, calf tenderness Back exam: Present: normal inspection. Absent: CVA tenderness (R), CVA tenderness (L) Neurological exam: Present: alert Skin exam: Present: warm, dry, intact, normal color. Absent: rash Course Vital Signs 08/07/23 08/08/23 08/08/23 20:29 00:51 00:55 Temperature 97.8 F Pulse Rate 73 73 73 Respiratory 18 Rate Blood Pressure 100/62 O2 Sat by Pulse 97 Oximetry 08/08/23 01:05 Temperature Pulse Rate 80 Respiratory 18 Rate Blood Pressure 124/72 O2 Sat by Pulse 99 Oximetry EKG Findings - EKG Results: EKG: interpreted by ERMD, sinus rhythm (Rate 72 bpm), normal axis, normal ST/T - Blocks, [place], Hypertrophy, ST Abn: AV and intraventricular conduction: right bundle branch block (fixed/interm ittent, complete/incomplete) (Incomplete) Medical Decision Making - Medical Decision Making The patient had chest x-ray which I interpreted as negative for acute infiltrate, pneumothorax, congestive heart failure Was pt. sent in by a medical professional or institution (, PA, MASSEUR/MASSEUSE, urgent care, hospital, or detention...) When possible be specific @ -[No] Did you speak to anyone other than the patient for history (EMS, parent, family, police, friend...)? What history was obtained from this source @ -[No] Did you review nursing and triage notes (agree or disagree)? Why? @ -[I reviewed and agree with nursing and triage notes] Were old charts reviewed (outside hosp., previous admission, EMS record, old EKG, old radiological studies, urgent care reports/EKG's, detention records)? Report findings @ -[No old charts were reviewed] Differential Diagnosis (chest pain, altered mental status, abdominal pain women, abdominal pain men, vaginal bleeding, weakness, fever, dyspnea, syncope, headache, dizziness, GI bleed, back pain, seizure, CVA, palpatations, mental health, musculoskeletal)? @ -[Differential Abdominal Pain Women: Appendicitis, Cholecystitis, diverticulosis, ischemic bowel, pancreatitis, hepatitis, UTI, gastroenteritis, AAA, incarcerated hernia, bowel obstruction, constipation, inflammatory bowel, hepatitis, peptic ulcer disease, splenic infarction, perforated viscus, vulvitis, ovarian torsion, PID, kidney stone, placenta abruption, this is not meant to be an all-inclusive list EKG interpreted by me (3pts min.). @ -[Interpreted As above] X-rays interpreted by me (1pt min.). @ -[I interpreted as above CT interpreted by me (1pt min.). @ -[None done] U/S interpreted by me (1pt. min.). @ -[None done] What testing was considered but not performed or refused? (CT, X-rays, U/S, labs)? Why? @ -[None] What meds were considered but not given or refused? Why? @ -[None] Did you discuss the management of the patient with other professionals (professionals i.e. , PA, MASSEUR/MASSEUSE, lab, RT, psych nurse, social science research assistant, animal cytologist, teacher, commercial escrow officer, community case manager)? Give summary @ -[No] Was smoking cessation discussed for >3mins.? @ -[No] Was critical care preformed (if so, how long)? @ -[No] Were there social determinants of health that impacted care today? How? (H omelessness, low income, unemployed, alcoholism, drug addiction, transportation, low edu. Level, literacy, decrease access to med. care, group home, rehab)? @ -[No] Was there de-escalation of care discussed even if they declined (Discuss DNR or withdrawal of care, Hospice)? DNR status @ -[No] What co-morbidities impacted this encounter? (DM, HTN, Smoking, COPD, CAD, Cancer, CVA, ARF, Chemo, Hep., AIDS, mental health diagnosis, sleep apnea, morbid obesity)? @ -[None] Was patient admitted / discharged? Hospital course, mention meds given and route, prescriptions, significant lab abnormalities, going to OR and other pertinent info. @ -[Patient is 63-year-old woman here to have evaluation of generalized weakness and fatigue and intermittent abdominal pains. The exam and initial workup are largely normal other than wheeze. The patient was feeling better and we discussed appropriate further care and follow-up as well as return parameters. Undiagnosed new problem with uncertain prognosis? @ -[No] Drug Therapy requiring intensive monitoring for toxicity (Heparin, Nitro, Insulin, Cardizem)? @ -[No] Were any procedures done? @ -[No] Diagnosis/symptom? @ -[Acute exacerbation of COPD Acute, or Chronic, or Acute on Chronic? @ -[Acute Uncomplicated (without systemic symptoms) or Complicated (systemic symptoms)? @ -[default] Side effects of treatment? @ -[No] Exacerbation, Progression, or Severe Exacerbation? @ -[Exacerbation Poses a threat to life or bodily function? How? (Chest pain, [place], [place], pneumonia, PE, COPD, DKA, ARF, appy, cholecystitis, CVA, Diverticulitis, Homicidal, Suicidal, threat to staff... and all critical care pts) @ -[No] - Lab Data Result diagrams: 08/07/23 21:59 08/07/23 21:59 Lab Results 08/07/23 08/07/23 08/07/23 Range/Units 21:59 21:59 21:59 WBC 7.0 (3.8-10.6) k/uL RBC 4.15 (3.80-5.40) m/uL Hgb 13.2 (11.4-16.0) gm/dL Hct 39.5 (34.0-46.0) % MCV 95.1 (80.0-100.0) fL MCH 31.8 (25.0-35.0) pg MCHC 33.4 (31.0-37.0) g/dL RDW 13.9 (11.5-15.5) % Plt Count 180 (150-450) k/uL MPV 7.9 Neutrophils % 64 % Lymphocytes % 27 % Monocytes % 7 % Eosinophils % 1 % Basophils % 0 % Neutrophils # 4.5 (1.3-7.7) k/uL Lymphocytes # 1.9 (1.0-4.8) k/uL Monocytes # 0.5 (0-1.0) k/uL Eosinophils # 0.0 (0-0.7) k/uL Basophils # 0.0 (0-0.2) k/uL PT 10.4 (10.0-12.5) sec INR 0.9 (<1.2) APTT 21.6 L (22.0-30.0) sec Sodium 136 L (137-145) mmol/L Potassium 3.6 (3.5-5.1) mmol/L Chloride 107 (98-107) mmol/L Carbon Dioxide 21 L (22-30) mmol/L Anion Gap 8 mmol/L BUN 18 H (7-17) mg/dL Creatinine 1.29 H (0.52-1.04) mg/dL Est GFR (CKD-EPI)AfAm 51 (>60 ml/min/1.73 sqM) Est GFR (CKD-EPI)NonAf 45 (>60 ml/min/1.73 sqM) Glucose 103 H (74-99) mg/dL Plasma Lactic Acid Jorge (0.7-2.0) mmol/L Calcium 9.4 (8.4-10.2) mg/dL Magnesium 1.7 (1.6-2.3) mg/dL Total Bilirubin 0.3 (0.2-1.3) mg/dL AST 25 (14-36) U/L ALT 23 (4-34) U/L Alkaline Phosphatase 150 H (38-126) U/L Troponin I (0.000-0.034) ng/mL Total Protein 6.3 (6.3-8.2) g/dL Albumin 3.8 (3.5-5.0) g/dL Influenza Type A (PCR) (Not Detectd) Influenza Type B (PCR) (Not Detectd) RSV (PCR) (Not Detectd) SARS-CoV-2 (PCR) (Not Detectd) 08/07/23 08/07/23 08/07/23 Range/Units 21:59 21:59 21:59 WBC (3.8-10.6) k/uL RBC (3.80-5.40) m/uL Hgb (11.4-16.0) gm/dL Hct (34.0-46.0) % MCV (80.0-100.0) fL MCH (25.0-35.0) pg MCHC (31.0-37.0) g/dL RDW (11.5-15.5) % Plt Count (150-450) k/uL MPV Neutrophils % % Lymphocytes % % Monocytes % % Eosinophils % % Basophils % % Neutrophils # (1.3-7.7) k/uL Lymphocytes # (1.0-4.8) k/uL Monocytes # (0-1.0) k/uL Eosinophils # (0-0.7) k/uL Basophils # (0-0.2) k/uL PT (10.0-12.5) sec INR (<1.2) APTT (22.0-30.0) sec Sodium (137-145) mmol/L Potassium (3.5-5.1) mmol/L Chloride (98-107) mmol/L Carbon Dioxide (22-30) mmol/L Anion Gap mmol/L BUN (7-17) mg/dL Creatinine (0.52-1.04) mg/dL Est GFR (CKD-EPI)AfAm (>60 ml/min/1.73 sqM) Est GFR (CKD-EPI)NonAf (>60 ml/min/1.73 sqM) Glucose (74-99) mg/dL Plasma Lactic Acid Jorge 1.1 (0.7-2.0) mmol/L Calcium (8.4-10.2) mg/dL Magnesium (1.6-2.3) mg/dL Total Bilirubin (0.2-1.3) mg/dL AST (14-36) U/L ALT (4-34) U/L Alkaline Phosphatase (38-126) U/L Troponin I <0.012 (0.000-0.034) ng/mL Total Protein (6.3-8.2) g/dL Albumin (3.5-5.0) g/dL Influenza Type A (PCR) Not Detected (Not Detectd) Influenza Type B (PCR) Not Detected (Not Detectd) RSV (PCR) Not Detected (Not Detectd) SARS-CoV-2 (PCR) Not Detected (Not Detectd) Disposition Clinical Impression: COPD (chronic obstructive pulmonary disease) Disposition: HOME SELF-CARE Condition: Good Prescriptions: predniSONE [Deltasone] 20 mg PO BID #8 tab Is patient prescribed a controlled substance at d/c from ED?: No Referrals: Ray Segovia MD [Primary Care Provider] - 1-2 days
[2023-08-08] MEDS ORDERED: ALBUTEROL NEBULIZED 2.5 MG/3 ML INHALATION STA (00:21)
[2023-08-08 01:24] VITALS: BP 124/72; PULSE 80
== END 2023-08-08 01:06 | disposition home or self-care (01) ==
LOC: EC 20:28
DX: J44.1 Chronic obstructive pulmonary disease with (acute) exacerbation (principal); I45.10 Unspecified right bundle-branch block; K21.9 Gastro-esophageal reflux disease without esophagitis; E07.9 Disorder of thyroid, unspecified; F31.9 Bipolar disorder, unspecified; F41.9 Anxiety disorder, unspecified; F17.200 Nicotine dependence, unspecified, uncomplicated; Z20.822 Contact with and (suspected) exposure to COVID-19; Z79.890 Hormone replacement therapy; Z79.51 Long term (current) use of inhaled steroids; Z79.899 Other long term (current) drug therapy; Z90.49 Acquired absence of other specified parts of digestive tract
CPT/HCPCS: 94640; 93005; 80053; 83605; 83735; 84484; 85025; 85610; 85730; 87040; 87636; 71046; 99285; 96360; 96361; J7512

== ENCOUNTER → 2024-01-13 | Outpatient (CLI) | payer MEDICARE ==
[2024-01-13 15:22] VITALS: BP 156/92; PULSE 82; RESP 18; TEMP 98.2
--- NOTE | 2024-01-13 15:37 | P.SLEEP ---
History of Present Illness DATE: 01/13/2024 CONSULTATION/NEW PATIENT EVALUATION HISTORY OF PRESENT ILLNESS/SLEEP-WAKE EVALUATION: 63-year-old lady had been e valuated in the sleep center for possible obstructive sleep apnea hypopnea syndrome. SLEEP SCHEDULE: Usually sleep schedule from 911 PM to 5:30 AM 7 days a week. FALLING ASLEEP: Sometimes patient has difficulties to fall asleep, although no TV in bedroom. DURING SLEEP: Patient sleeps on the side position with snoring and witnessed episodes of stop breathing during the sleep by her . Patient wakes up from sleep up to 5 times with nocturia. Significant amount of movements during the sleep positive history of episodes of gasping for air, sweating, dry mouth, restless leg symptoms no history of hypnogogical hallucinations, sleep paralysis, or cataplexy. DURING THE DAY/WAKE STATE: In the morning patient wake up tired, has difficulties to pay attention, has problems with memory, concentration, irritability. [place] sleepiness scale is 3. Patient does not take naps. PAST MEDICAL HISTORY: Bipolar, acid reflux, hypothyroidism. PAST SURGICAL HISTORY: Parathyroidectomy, cholecystectomy, bilateral cataract surgery. MEDICATIONS: Please see below. SOCIAL HISTORY: Positive for smoking for 40 pack years, trying to quit, no alcohol. FAMILY HISTORY: Sleep apnea, stroke, cancer, mental illness. REVIEW OF SYSTEMS: Snoring, multiple awakenings from sleep. No fevers. No double vision. No recent chest pain. No shortness of breath. No abdominal pain. No bleeding episodes. No blood in urine. No seizure episodes. PHYSICAL EXAMINATION: GENERAL: A pleasant patient without any distress. VITAL SIGNS: Please see below. HEENT: PERRLA, EOMI. Evaluation of oropharynx showed tongue protrudes midline, low position of soft palate Mallampati 34. NECK: Supple. No JVD. Thyroid is not palpable. 16 inches in circumference. LUNGS: Clear to percussion and to auscultation. Good air exchange. No wheezing or rhonchi. HEART: S1, S2 regular. No murmurs, gallops or rubs. ABDOMEN: Soft and nontender. Bowel sounds are present. No organomegaly appreciated. EXTREMITIES: No clubbing or cyanosis. CLAIMS ACCOUNT SPECIALIST: Awake, alert, and oriented x3. Cranial nerves 2 to 7 intact. There is no fasciculation or atrophy noted. No focal deficits observed. ASSESSMENT: 1. Snoring, witnessed episodes of stop breathing during the sleep, low position of soft palate Mallampati 34, wide neck 16 inches in circumference. Obstructive sleep apnea hypopnea syndrome. 2. History of smoking for more than 40 pack years, trying to quit. 3. Hypertension in the office. 4. Hypothyroidism. 5 status post parathyroidectomy. 6 . Bipolar. 7. Status post hysterectomy. 8. Status post cholecystectomy. 9. Mild obesity, BMI 33.0 PLAN: 1. Polysomnography for evaluation of patient's breathing during sleep. 2. Following plan after reading sleep study. 3. Preferable position during sleep on the side. 4. No driving if patient feels any sleepiness. Patient is aware of civil and criminal liability for unsafe driving. 5. Sleep hygiene with regular sleep time for at least 7.5-8 hours. 6. Watching weight. Thank you very much for referring this patient for consultation. Sincerely, Jorje Salamanca MD, PhD, FAASM. Diplomat of [place] [employer], Sleep Medicine Board by [place] [employer] [place] [employer] Business Development Consultant of [facility] Past Medical History Past Medical History: COPD, GERD/Reflux, Renal Disease, Thyroid Disorder Additional Past Medical History / Comment(s): cysts on (R) kidney. PARATHYROID REMOVED, NAUSEA, CONSTIPATION, monoclonal gammopathy History of Any Multi-Drug Resistant Organisms: None Reported Past Surgical History: Cholecystectomy, Hysterectomy Additional Past Surgical History / Comment(s): parathyroidectomy, Cataract both eyes Past Anesthesia/Blood Transfusion Reactions: No Reported Reaction Additional Past Anesthesia/Blood Transfusion Reaction / Comment(s): "Have woken up during surgery before" COLONOSCOPY AND EGD " Past Psychological History: Anxiety, Bipolar, Depression Additional Psychological History / Comment(s): Pt resides with her spouse. Smoking Status: Current every day smoker Past Alcohol Use History: None Reported Additional Past Alcohol Use History / Comment(s): Pt started smoking in 1976 SMOKES 1/2 PPD Past Drug Use History: None Reported Additional Drug Use History / Comment(s): PAST HISTORY 2020 - Past Family History Father Family Medical History: Cancer, Coronary Artery Disease (CAD) Additional Family Medical History / Comment(s): Father is of blood cancer. Mother Family Medical History: Coronary Artery Disease (CAD) Additional Family Medical History / Comment(s): KIDNEY DISEASE Son(s) Family Medical History: Cancer Additional Family Medical History / Comment(s): Brain tumor - . Sister(s) Family Medical History: Cancer Additional Family Medical History / Comment(s): Breast cancer. Medications and Allergies Home Medications Medication Instructions Recorded Confirmed Type Sucralfate [Carafate] 1 gm PO AC-BID 02/04/21 01/13/24 History Ipratropium-Albuterol Nebulize 3 ml INHALATION RT-QID PRN 11/04/21 01/13/24 History [Duoneb 0.5 mg-3 mg/3 ml Soln] Ziprasidone [Geodon] 40 mg PO DAILY 11/04/21 01/13/24 History Pantoprazole Sodium [Protonix] 40 mg PO BID 11/12/21 01/13/24 History Gabapentin 600 mg PO TID 02/28/22 01/13/24 History Levothyroxine Sodium [Synthroid] 50 mcg PO DAILY 02/28/22 01/13/24 History cloNIDine HCL 0.2 mg PO DAILY PRN 02/28/22 01/13/24 History cloNIDine HCL 0.4 mg PO HS 02/28/22 01/13/24 History rOPINIRole HCL [Requip] 0.5 mg PO HS 02/28/22 01/13/24 History Linaclotide [Linzess] 290 mcg PO DAILY 02/24/23 01/13/24 History Montelukast [Singulair] 10 mg PO DAILY 02/24/23 01/13/24 History Ziprasidone [Geodon] 60 mg PO HS 02/24/23 01/13/24 History Atorvastatin Calcium 10 mg PO DAILY 07/03/23 01/13/24 History Desvenlafaxine Succinate [Pristiq 25 mg PO DAILY 07/03/23 01/13/24 History ER] Ergocalciferol (Vitamin D2) 1,250 mcg PO MO 07/03/23 01/13/24 History [Drisdol (50,000 Iu)] Famotidine [Pepcid] 20 mg PO BID 07/03/23 01/13/24 History Fluticasone Nasal [place] [Flonase 1 spr EA NOSTRIL DAILY PRN 07/03/23 01/13/24 History Nasal [place]] HYDROcodone/APAP 5-325MG [[place] 1 tab PO TID PRN 07/03/23 01/13/24 History 5-325] Promethazine HCl 12.5 mg PO QID PRN 07/03/23 01/13/24 History lamoTRIgine [LaMICtal] 100 mg PO BID 07/03/23 01/13/24 History Ondansetron [Zofran] 4 mg PO Q8HR PRN 08/07/23 01/13/24 History Sevelamer [Renvela] 800 mg PO DAILY 08/07/23 01/13/24 History Allergies Allergy/AdvReac Type Severity Reaction Status Date / Time amoxicillin Allergy Anaphylaxis Verified 09/14/23 08:01 Physical Exam Vitals: Vital Signs Temp Pulse Resp BP Pulse Ox 01/13/24 15:03 98.2 F 82 18 156/92 98 Intake and Output 01/13/24 01/13/24 01/13/24 06:59 14:59 22:59 Other: Weight 76.657 kg Sleep Note - Sleep Data ESS Total: 3 - Sleep Note Sleep Note: Temperature: 98.2 F Pulse Rate: 82 Respiratory Rate: 18 Blood Pressure: 156/92 SpO2: 98 Height: 5 ft Weight: 76.657 kg BMI: Neck Circumference: 16
== END ==
LOC: 3 N SLEEP 14:38
PROVIDERS: ATTEND Internal Medicine
DX: G47.33 Obstructive sleep apnea (adult) (pediatric) (principal); R06.83 Snoring; I10 Essential (primary) hypertension; E03.9 Hypothyroidism, unspecified; F31.9 Bipolar disorder, unspecified; E66.9 Obesity, unspecified; Z90.49 Acquired absence of other specified parts of digestive tract; Z90.710 Acquired absence of both cervix and uterus; Z68.33 Body mass index [BMI] 33.0-33.9, adult; Z88.0 Allergy status to penicillin; F17.200 Nicotine dependence, unspecified, uncomplicated
CPT/HCPCS: 99211

== ENCOUNTER 2024-01-19 22:21 | Emergency (ER) | payer MEDICARE ==
--- NOTE | 2024-01-19 22:50 | ED ---
General Adult HPI - General Source: patient Mode of arrival: ambulatory Limitations: no limitations <Basia Mcclure - Last Filed: 01/19/24 22:49> <Angella Vilchis - Last Filed: 01/20/24 03:49> - General Chief complaint: Eye Problems Stated complaint: R Eye Irritation - History of Present Illness Initial comments: Quick note: 63-year-old female presents to the emergency department for evaluation of right eye irritation. Patient states that she has a scratch to her right eye. She followed with her gambling dealer today and some sort of eye contact was placed. She states that this fell out and states that she has had significantly worse pain. (Basia Mcclure) 63-year-old female presenting with chief complaint of right eye irritation. Patient states that yesterday she scratched her eye while trying to put in her eyedrops. She saw her gambling dealer today and a protective contact was placed and the patient was started on antibiotic eyedrops. This evening she is having worsening pain and watering to the eye. She has had no new injury. Vision is mildly blurry. No purulent discharge. No itching. She admits to light sensitivity. (Angella Vilchis) - Related Data Home Medications Medication Instructions Recorded Confirmed Sucralfate [Carafate] 1 gm PO AC-BID 02/04/21 01/13/24 Ipratropium-Albuterol Nebulize 3 ml INHALATION RT-QID PRN 11/04/21 01/13/24 [Duoneb 0.5 mg-3 mg/3 ml Soln] Ziprasidone [Geodon] 40 mg PO DAILY 11/04/21 01/13/24 Pantoprazole Sodium [Protonix] 40 mg PO BID 11/12/21 01/13/24 Gabapentin 600 mg PO TID 02/28/22 01/13/24 Levothyroxine Sodium [Synthroid] 50 mcg PO DAILY 02/28/22 01/13/24 cloNIDine HCL 0.2 mg PO DAILY PRN 02/28/22 01/13/24 cloNIDine HCL 0.4 mg PO HS 02/28/22 01/13/24 rOPINIRole HCL [Requip] 0.5 mg PO HS 02/28/22 01/13/24 Linaclotide [Linzess] 290 mcg PO DAILY 02/24/23 01/13/24 Montelukast [Singulair] 10 mg PO DAILY 02/24/23 01/13/24 Ziprasidone [Geodon] 60 mg PO HS 02/24/23 01/13/24 Atorvastatin Calcium 10 mg PO DAILY 07/03/23 01/13/24 Desvenlafaxine Succinate [Pristiq 25 mg PO DAILY 07/03/23 01/13/24 ER] Ergocalciferol (Vitamin D2) 1,250 mcg PO MO 07/03/23 01/13/24 [Drisdol (50,000 Iu)] Famotidine [Pepcid] 20 mg PO BID 07/03/23 01/13/24 Fluticasone Nasal [place] [Flonase 1 spr EA NOSTRIL DAILY PRN 07/03/23 01/13/24 Nasal [place]] HYDROcodone/APAP 5-325MG [[place] 1 tab PO TID PRN 07/03/23 01/13/24 5-325] Promethazine HCl 12.5 mg PO QID PRN 07/03/23 01/13/24 lamoTRIgine [LaMICtal] 100 mg PO BID 07/03/23 01/13/24 Ondansetron [Zofran] 4 mg PO Q8HR PRN 08/07/23 01/13/24 Sevelamer [Renvela] 800 mg PO DAILY 08/07/23 01/13/24 Allergies Allergy/AdvReac Type Severity Reaction Status Date / Time amoxicillin Allergy Anaphylaxis Verified 09/14/23 08:01 Review of Systems ROS Other: All systems not noted in ROS Statement are negative. <Basia Mcclure - Last Filed: 01/19/24 22:49> ROS Other: All systems not noted in ROS Statement are negative. <Angella Vilchis - Last Filed: 01/20/24 03:49> ROS Statement: Those systems with pertinent positive or pertinent negative responses have been documented in the HPI. Past Medical History Past Medical History: COPD, GERD/Reflux, Renal Disease, Thyroid Disorder Additional Past Medical History / Comment(s): cysts on (R) kidney. PARATHYROID REMOVED, NAUSEA, CONSTIPATION, monoclonal gammopathy History of Any Multi-Drug Resistant Organisms: None Reported Past Surgical History: Cholecystectomy, Hysterectomy Additional Past Surgical History / Comment(s): parathyroidectomy, Cataract both eyes Past Anesthesia/Blood Transfusion Reactions: No Reported Reaction Additional Past Anesthesia/Blood Transfusion Reaction / Comment(s): "Have woken up during surgery before" COLONOSCOPY AND EGD " Past Psychological History: Anxiety, Bipolar, Depression Smoking Status: Current every day smoker Past Alcohol Use History: None Reported Past Drug Use History: None Reported - Past Family History Father Family Medical History: Cancer, Coronary Artery Disease (CAD) Additional Family Medical History / Comment(s): Father is of blood cancer. Mother Family Medical History: Coronary Artery Disease (CAD) Additional Family Medical History / Comment(s): KIDNEY DISEASE Son(s) Family Medical History: Cancer Additional Family Medical History / Comment(s): Brain tumor - . Sister(s) Family Medical History: Cancer Additional Family Medical History / Comment(s): Breast cancer. <Basia Mcclure - Last Filed: 01/19/24 22:49> General Exam Limitations: no limitations <Basia Mcclure - Last Filed: 01/19/24 22:49> Limitations: no limitations General appearance: alert, in no apparent distress Head exam: Present: atraumatic, normocephalic Eye exam: Present: PERRL, EOMI, other (Scleral injection) Pupils: Present: normal accommodation Neck exam: Present: normal inspection. Absent: meningismus Respiratory exam: Absent: respiratory distress Cardiovascular Exam: Present: regular rate Neurological exam: Present: alert, oriented X3 Psychiatric exam: Present: normal affect, normal mood Skin exam: Present: warm, dry <Angella Vilchis - Last Filed: 01/20/24 03:49> - General Exam Comments Initial Comments: Visual Physical Exam Vital signs reviewed General: Well-appearing, nontoxic, no acute distress. Head: Normocephalic, atraumatic Eyes: PERRLA, EOMI ENT: Airway patent Chest: Nonlabored breathing Skin: No visual rash, normal skin tone Neuro: Alert and oriented 3 Musculoskeletal: No gross abnormalities (Basia Mcclure) Course Vital Signs 01/19/24 01/20/24 22:33 00:06 Temperature 97.9 F 97.6 F Pulse Rate 89 71 Respiratory 18 18 Rate Blood Pressure 170/106 128/79 O2 Sat by Pulse 97 96 Oximetry Medical Decision Making <Basia Mcclure - Last Filed: 01/19/24 22:49> <DengCiaranfarrah - Last Filed: 01/20/24 03:49> - Medical Decision Making Quick note preformed and electronically signed by Basia Mcclure PA-C (Basia Mcclure) Was pt. sent in by a medical professional or institution ([facility], SAUSAGE GRINDER, urgent care, hospital, or long term...) When possible be specific @ -No Did you speak to anyone other than the patient for history (EMS, parent, family, police, friend...)? What history was obtained from this source @ -No Did you review nursing and triage notes (agree or disagree)? Why? @ -I reviewed and agree with nursing and triage notes Were old charts reviewed (outside hosp., previous admission, EMS record, old EKG, old radiological studies, urgent care reports/EKG's, long term records)? Report findings @ -No old charts were reviewed Differential Diagnosis (chest pain, altered mental status, abdominal pain women, abdominal pain men, vaginal bleeding, weakness, fever, dyspnea, syncope, headache, dizziness, GI bleed, back pain, seizure, CVA, palpatations, mental health, musculoskeletal)? @ -Differential includes corneal abrasion, corneal ulcer, globe rupture, foreign body, conjunctivitis, this is not an all-inclusive list EKG interpreted by me (3pts min.). @ -As above X-rays interpreted by me (1pt min.). @ -None done CT interpreted by me (1pt min.). @ -None done U/S interpreted by me (1pt. min.). @ -None done What testing was considered but not performed or refused? (CT, X-rays, U/S, labs)? Why? @ -None What meds were considered but not given or refused? Why? @ -None Did you discuss the management of the patient with other professionals (professionals i.e. [facility], SAUSAGE GRINDER, lab, RT, psych nurse, manager social work, medical claims assistant, teacher, assurance officer, immigration case worker)? Give summary @ -No Was smoking cessation discussed for >3mins.? @ -No Was critical care preformed (if so, how long)? @ -No Were there social determinants of health that impacted care today? How? (Homelessness, low income, unemployed, alcoholism, drug addiction, transportation, low edu. Level, literacy, decrease access to med. care, [facility], rehab)? @ -No Was there de-escalation of care discussed even if they declined (Discuss DNR or withdrawal of care, Hospice)? DNR status @ -No What co-morbidities impacted this encounter? (DM, HTN, Smoking, COPD, CAD, Cancer, CVA, ARF, Chemo, Hep., AIDS, mental health diagnosis, sleep apnea, morbid obesity)? @ -None Was patient admitted / discharged? Hospital course, mention meds given and route, prescriptions, significant lab abnormalities, going to OR and other pertinent info. @ -63-year-old female presenting with chief complaint of eye irritation. She scratched her eye yesterday and was seen at her gambling dealer today, provided with a protective contact lens and antibiotic eyedrops. She is having increased irritation and watering tonight. On exam there is scleral injection noted. Improvement with proparacaine drops. The corneal abrasion is seen on fluorescein exam. Patient is provided with ketorolac eyedrops. Instructed to follow-up with her gambling dealer. Continue taking antibiotic eyedrops as prescribed. Discharge. Follow-up with PCP. Report back to ER with any new or worsening symptoms. Discussed return parameters and answered all questions. Patient conveyed verbal understanding and agreed to the plan. I discussed this case in detail with my attending Dr. Carson Undiagnosed new problem with uncertain prognosis? @ -No Drug Therapy requiring intensive monitoring for toxicity (Heparin, Nitro, Insulin, Cardizem)? @ -No Were any procedures done? @ -No Diagnosis/symptom? @ -Corneal abrasion Acute, or Chronic, or Acute on Chronic? @ -Acute Uncomplicated (without systemic symptoms) or Complicated (systemic symptoms)? @ -Uncomplicated Side effects of treatment? @ -No Exacerbation, Progression, or Severe Exacerbation? @ -No Poses a threat to life or bodily function? How? (Chest pain, [place], [place], pneumonia, PE, COPD, DKA, ARF, appy, cholecystitis, CVA, Diverticulitis, Homicidal, Suicidal, threat to staff... and all critical care pts) @ -Low likelihood (Angella Vilchis) Disposition <Basia Mcclure - Last Filed: 01/19/24 22:49> Is patient prescribed a controlled substance at d/c from ED?: No Time of Disposition: 23:56 <Angella Vilchis - Last Filed: 01/20/24 03:49> Clinical Impression: Corneal abrasion Disposition: HOME SELF-CARE Condition: Good Instructions (If sedation given, give patient instructions): Corneal Abrasion (ED) Additional Instructions: Follow-up with your gambling dealer. You may apply 1 ketorolac eyedrop to the affected eye up to 4 times daily as needed for pain. Continue taking antibiotic eyedrops as prescribed. Report back to ER with any new or worsening symptoms. Referrals: Ray Segovia MD [Primary Care Provider] - 1-2 days Kip Akhtar MD [STAFF PHYSICIAN] - 1-2 days
[2024-01-19 22:56] VITALS: RESP 18
[2024-01-19] MEDS: FLUORESCEIN STRIPS 1 MG STRIP RIGHT EYE ONE (23:20)
[2024-01-19] MEDS: PROPARACAINE 0.5% OPHTH DROPS 15 ML BTL RIGHT EYE STA (23:20)
[2024-01-19] MEDS: KETOROLAC 0.5% OPHTH DROPS 5 ML BTL RIGHT EYE SCH (23:41)
[2024-01-20 00:16] VITALS: BP 128/79; PULSE 71; TEMP 97.6
== END 2024-01-20 00:07 | disposition home or self-care (01) ==
LOC: EC 22:21
DX: S05.01XA Injury of conjunctiva and corneal abrasion without foreign body, right eye, initial encounter (principal); F17.200 Nicotine dependence, unspecified, uncomplicated; Z88.0 Allergy status to penicillin; X58.XXXA Exposure to other specified factors, initial encounter
CPT/HCPCS: 99283

== ENCOUNTER 2024-02-01 02:02 | Emergency (ER) | payer MEDICARE ==
[2024-02-01 02:12] VITALS: PULSE 78; TEMP 98.8
[2024-02-01 02:31] LABS: Basophils # (A) 0.1 k/uL (0-0.2); Basophils % (A) 1 %; Eosinophils # (A) 0.1 k/uL (0-0.7); Eosinophils % (A) 1 %; HCT 43.9 % (34.0-46.0); HGB 14.5 gm/dL (11.4-16.0); Lymphocytes # (A) 2.2 k/uL (1.0-4.8); Lymphocytes % (A) 21 %; MCH 30.4 pg (25.0-35.0); MCV 92.1 fL (80.0-100.0); Mean Platelet Volume 7.3; Monocytes # (A) 0.6 k/uL (0-1.0); Monocytes % (A) 6 %; Neutrophils # (A) 7.1 k/uL (1.3-7.7); Neutrophils % (A) 70 %; Platelet Count 263 k/uL (150-450); RBC 4.76 m/uL (3.80-5.40); RDW 14.4 % (11.5-15.5); WBC 10.3 k/uL (3.8-10.6)
--- NOTE | 2024-02-01 02:40 | ED ---
Headache HPI - General Source: patient, family, RN notes reviewed Mode of arrival: wheelchair Limitations: no limitations <Christine Fabian - Last Filed: 02/01/24 04:14> <Guillermina Alegria - Last Filed: 02/09/24 00:01> - General Chief Complaint: Headache Stated Complaint: RT side tingling headache uncoordinated Time Seen by Provider: 02/01/24 02:38 - History of Present Illness Initial Comments: 63-year-old female presenting to the ER with a chief complaint of a headache. Past medical history significant of renal disease. She states about 3 days ago she was extremely nauseous. She states it resolved and this morning she went to [facility] and had another episode of nausea that made her leave charge. She went to go lay down when she got home and take a nap. Upon waking she noticed she was only using her left hand to do things. Patient is right-handed. Then she noticed her right hand felt tingly and her the right leg was painful. Denies any slurred speech or facial droop. She did take promethazine for nausea without relief. Denies any fevers, chills, vomiting, abdominal pain, chest pain, shortness of breath or peripheral edema. (Christine Fabian) - Related Data Home Medications Medication Instructions Recorded Confirmed Sucralfate [Carafate] 1 gm PO AC-BID 02/04/21 01/13/24 Ipratropium-Albuterol Nebulize 3 ml INHALATION RT-QID PRN 11/04/21 01/13/24 [Duoneb 0.5 mg-3 mg/3 ml Soln] Ziprasidone [Geodon] 40 mg PO DAILY 11/04/21 01/13/24 Pantoprazole Sodium [Protonix] 40 mg PO BID 11/12/21 01/13/24 Gabapentin 600 mg PO TID 02/28/22 01/13/24 Levothyroxine Sodium [Synthroid] 50 mcg PO DAILY 02/28/22 01/13/24 cloNIDine HCL 0.2 mg PO DAILY PRN 02/28/22 01/13/24 cloNIDine HCL 0.4 mg PO HS 02/28/22 01/13/24 rOPINIRole HCL [Requip] 0.5 mg PO HS 02/28/22 01/13/24 Linaclotide [Linzess] 290 mcg PO DAILY 02/24/23 01/13/24 Montelukast [Singulair] 10 mg PO DAILY 02/24/23 01/13/24 Ziprasidone [Geodon] 60 mg PO HS 02/24/23 01/13/24 Atorvastatin Calcium 10 mg PO DAILY 07/03/23 01/13/24 Desvenlafaxine Succinate [Pristiq 25 mg PO DAILY 07/03/23 01/13/24 ER] Ergocalciferol (Vitamin D2) 1,250 mcg PO MO 07/03/23 01/13/24 [Drisdol (50,000 Iu)] Famotidine [Pepcid] 20 mg PO BID 07/03/23 01/13/24 Fluticasone Nasal [place] [Flonase 1 spr EA NOSTRIL DAILY PRN 07/03/23 01/13/24 Nasal [place]] HYDROcodone/APAP 5-325MG [[place] 1 tab PO TID PRN 07/03/23 01/13/24 5-325] Promethazine HCl 12.5 mg PO QID PRN 07/03/23 01/13/24 lamoTRIgine [LaMICtal] 100 mg PO BID 07/03/23 01/13/24 Ondansetron [Zofran] 4 mg PO Q8HR PRN 08/07/23 01/13/24 Sevelamer [Renvela] 800 mg PO DAILY 08/07/23 01/13/24 Previous Rx's Medication Instructions Recorded Ketorolac [Toradol] 10 mg PO Q8HR PRN #15 tab 02/01/24 Metoclopramide [Reglan] 10 mg PO TID PRN #20 tab 02/01/24 Allergies Allergy/AdvReac Type Severity Reaction Status Date / Time amoxicillin Allergy Anaphylaxis Verified 02/01/24 02:09 Review of Systems ROS Other: All systems not noted in ROS Statement are negative. <Christine Fabian - Last Filed: 02/01/24 04:14> ROS Other: All systems not noted in ROS Statement are negative. <Guillermina Alegria - Last Filed: 02/09/24 00:01> ROS Statement: Those systems with pertinent positive or pertinent negative responses have been documented in the HPI. Past Medical History Past Medical History: COPD, GERD/Reflux, Renal Disease, Thyroid Disorder Additional Past Medical History / Comment(s): cysts on (R) kidney. PARATHYROID REMOVED, NAUSEA, CONSTIPATION, monoclonal gammopathy History of Any Multi-Drug Resistant Organisms: None Reported Past Surgical History: Cholecystectomy, Hysterectomy Additional Past Surgical History / Comment(s): parathyroidectomy, Cataract both eyes Past Anesthesia/Blood Transfusion Reactions: No Reported Reaction Additional Past Anesthesia/Blood Transfusion Reaction / Comment(s): "Have woken up during surgery before" COLONOSCOPY AND EGD " Past Psychological History: Anxiety, Bipolar, Depression Smoking Status: Current every day smoker Past Alcohol Use History: None Reported Past Drug Use History: None Reported - Past Family History Father Family Medical History: Cancer, Coronary Artery Disease (CAD) Additional Family Medical History / Comment(s): Father is of blood cancer. Mother Family Medical History: Coronary Artery Disease (CAD) Additional Family Medical History / Comment(s): KIDNEY DISEASE Son(s) Family Medical History: Cancer Additional Family Medical History / Comment(s): Brain tumor - . Sister(s) Family Medical History: Cancer Additional Family Medical History / Comment(s): Breast cancer. <Christine Fabian - Last Filed: 02/01/24 04:14> General Exam Limitations: no limitations General appearance: alert, in no apparent distress Eye exam: Present: normal appearance, PERRL, EOMI. Absent: scleral icterus, conjunctival injection, periorbital swelling Pupils: Present: normal accommodation ENT exam: Present: normal exam, normal oropharynx, mucous membranes moist Respiratory exam: Present: normal lung sounds bilaterally. Absent: respiratory distress, wheezes, rales, rhonchi, stridor Cardiovascular Exam: Present: regular rate, normal rhythm, normal heart sounds. Absent: systolic murmur, diastolic murmur, rubs, gallop, clicks Neurological exam: Present: alert, oriented X3, other (No facial droop, slurred speech, one-sided weakness present) Skin exam: Present: warm, dry, intact, normal color. Absent: rash <Christine Fabian - Last Filed: 02/01/24 04:14> Course Vital Signs 02/01/24 02/01/24 02:05 06:43 Temperature 98.8 F Pulse Rate 78 Respiratory 18 55 H Rate Blood Pressure 139/88 95/64 O2 Sat by Pulse 99 98 Oximetry Medical Decision Making - Lab Data Result diagrams: 02/01/24 02:17 02/01/24 02:17 - EKG Data -: EKG Interpreted by Me <Christine Fabian - Last Filed: 02/01/24 04:14> - Lab Data Result diagrams: 02/01/24 02:17 02/01/24 02:17 <Guillermina Alegria Sarahy - Last Filed: 02/09/24 00:01> - Medical Decision Making Was pt. sent in by a medical professional or institution (, PA, PRODUCT SAFETY COMPLIANCE LEADER, urgent care, hospital, or halfway...) When possible be specific @ -No Did you speak to anyone other than the patient for history (EMS, parent, family, police, friend...)? What history was obtained from this source @ -No Did you review nursing and triage notes (agree or disagree)? Why? @ -I reviewed and agree with nursing and triage notes Were old charts reviewed (outside hosp., previous admission, EMS record, old EKG, old radiological studies, urgent care reports/EKG's, halfway records)? Report findings @ -No old charts were reviewed Differential Diagnosis (chest pain, altered mental status, abdominal pain women, abdominal pain men, vaginal bleeding, weakness, fever, dyspnea, syncope, headache, dizziness, GI bleed, back pain, seizure, CVA, palpatations, mental health, musculoskeletal)? @ -Differential Headache:Migraine, tension, cluster, carbon monoxide, central venous thrombosis, pension karma temporal arteritis, acute closure glaucoma, intercranial hemorrhage, mastoiditis, sinusitis, head injury, this is not meant to be an all-inclusive list. EKG interpreted by me (3pts min.). @ -As above X-rays interpreted by me (1pt min.). @ -None done CT interpreted by me (1pt min.). @ -Pending U/S interpreted by me (1pt. min.). @ -None done What testing was considered but not performed or refused? (CT, X-rays, U/S, labs)? Why? @ -None What meds were considered but not given or refused? Why? @ -None Did you discuss the management of the patient with other professionals (professionals i.e. , PA, PRODUCT SAFETY COMPLIANCE LEADER, lab, RT, psych nurse, manager social services, coach wirer, teacher, supply requirements officer, window caser)? Give summary @ -No Was smoking cessation discussed for >3mins.? @ -No Was critical care preformed (if so, how long)? @ -No Were there social determinants of health that impacted care today? How? (Homelessness, low income, unemployed, alcoholism, drug addiction, transportation, low edu. Level, literacy, decrease access to med. care, residential, rehab)? @ -No Was there de-escalation of care discussed even if they declined (Discuss DNR or withdrawal of care, Hospice)? DNR status @ -No What co-morbidities impacted this encounter? (DM, HTN, Smoking, COPD, CAD, Cancer, CVA, ARF, Chemo, Hep., AIDS, mental health diagnosis, sleep apnea, morbid obesity)? @ -Renal disease Was patient admitted / discharged? Hospital course, mention meds given and route, prescriptions, significant lab abnormalities, going to OR and other pertinent info. @ -63-year-old female presenting to the ER with a chief complaint of a headache and nausea. History and physical exam completed. Vitals stable. Patient no signs acute distress and nontoxic-appearing. No acute neurological findings on exam. Labs obtained significant for a potassium of 5.7, chloride 111, carbon dioxide 21. BUN 21, creatinine 1.31 which is believed to be due from patient's stage III renal disease. Sample was also hemolyzed. Received IV fluids and Zofran with improvement of symptoms. CT brain performed results pending. Patient signed out to Dr. Alegria pending CT results and disposition. (Christine Fabian) Was patient admitted / discharged? Hospital course, mention meds given and route, prescriptions, significant lab abnormalities, going to OR and other pertinent info. @ -Patient signed out to me pending CT. CT is negative. I did offer the patient pain control for which she was agreeable. Patient given migraine cocktail. She is requesting discharge at this time. Patient will be discharged home and is instructed to follow-up with her primary care. Return for any new or worsening symptoms. Patient discharged in stable condition Undiagnosed new problem with uncertain prognosis? @ -No Drug Therapy requiring intensive monitoring for toxicity (Heparin, Nitro, Insulin, Cardizem)? @ -No Were any procedures done? @ -No Diagnosis/symptom? @ -Acute cephalgia Acute, or Chronic, or Acute on Chronic? @ -Acute Uncomplicated (without systemic symptoms) or Complicated (systemic symptoms)? @ -Complicated Side effects of treatment? @ -No Exacerbation, Progression, or Severe Exacerbation? @ -No Poses a threat to life or bodily function? How? (Chest pain, [place], [place], pneumonia, PE, COPD, DKA, ARF, appy, cholecystitis, CVA, Diverticulitis, Homicidal, Suicidal, threat to staff... and all critical care pts) @ -No (Guillermina Alegria) - Lab Data Lab Results 02/01/24 02/01/24 02/01/24 Range/Units 02:17 02:17 02:17 WBC 10.3 (3.8-10.6) k/uL RBC 4.76 (3.80-5.40) m/uL Hgb 14.5 (11.4-16.0) gm/dL Hct 43.9 (34.0-46.0) % MCV 92.1 (80.0-100.0) fL MCH 30.4 (25.0-35.0) pg MCHC 33.0 (31.0-37.0) g/dL RDW 14.4 (11.5-15.5) % Plt Count 263 (150-450) k/uL MPV 7.3 Neutrophils % 70 % Lymphocytes % 21 % Monocytes % 6 % Eosinophils % 1 % Basophils % 1 % Neutrophils # 7.1 (1.3-7.7) k/uL Lymphocytes # 2.2 (1.0-4.8) k/uL Monocytes # 0.6 (0-1.0) k/uL Eosinophils # 0.1 (0-0.7) k/uL Basophils # 0.1 (0-0.2) k/uL PT 9.4 L (10.0-12.5) sec INR 0.8 (<1.2) APTT 24.5 (22.0-30.0) sec Sodium 137 (137-145) mmol/L Potassium 5.7 H (3.5-5.1) mmol/L Chloride 111 H (98-107) mmol/L Carbon Dioxide 21 L (22-30) mmol/L Anion Gap 5 mmol/L BUN 21 H (7-17) mg/dL Creatinine 1.31 H (0.52-1.04) mg/dL Est GFR (CKD-EPI)AfAm 50 (>60 ml/min/1.73 sqM) Est GFR (CKD-EPI)NonAf 44 (>60 ml/min/1.73 sqM) Glucose 96 (74-99) mg/dL Calcium 9.6 (8.4-10.2) mg/dL Total Bilirubin 0.8 (0.2-1.3) mg/dL AST 45 H (14-36) U/L ALT 31 (4-34) U/L Alkaline Phosphatase 158 H (38-126) U/L Troponin I (0.000-0.034) ng/mL Total Protein 6.6 (6.3-8.2) g/dL Albumin 3.8 (3.5-5.0) g/dL 02/01/24 Range/Units 02:17 WBC (3.8-10.6) k/uL RBC (3.80-5.40) m/uL Hgb (11.4-16.0) gm/dL Hct (34.0-46.0) % MCV (80.0-100.0) fL MCH (25.0-35.0) pg MCHC (31.0-37.0) g/dL RDW (11.5-15.5) % Plt Count (150-450) k/uL MPV Neutrophils % % Lymphocytes % % Monocytes % % Eosinophils % % Basophils % % Neutrophils # (1.3-7.7) k/uL Lymphocytes # (1.0-4.8) k/uL Monocytes # (0-1.0) k/uL Eosinophils # (0-0.7) k/uL Basophils # (0-0.2) k/uL PT (10.0-12.5) sec INR (<1.2) APTT (22.0-30.0) sec Sodium (137-145) mmol/L Potassium (3.5-5.1) mmol/L Chloride (98-107) mmol/L Carbon Dioxide (22-30) mmol/L Anion Gap mmol/L BUN (7-17) mg/dL Creatinine (0.52-1.04) mg/dL Est GFR (CKD-EPI)AfAm (>60 ml/min/1.73 sqM) Est GFR (CKD-EPI)NonAf (>60 ml/min/1.73 sqM) Glucose (74-99) mg/dL Calcium (8.4-10.2) mg/dL Total Bilirubin (0.2-1.3) mg/dL AST (14-36) U/L ALT (4-34) U/L Alkaline Phosphatase (38-126) U/L Troponin I <0.012 (0.000-0.034) ng/mL Total Protein (6.3-8.2) g/dL Albumin (3.5-5.0) g/dL - EKG Data EKG Comments: EKG taken at 2: 14 showing a sinus rhythm with no acute ST segment or T wave abnormalities. Ventricular rate 70, IA interval 183, QRS duration 97, QT/QTc 430/451. (Christine Fabian) Disposition <Christine Fabian - Last Filed: 02/01/24 04:14> Is patient prescribed a controlled substance at d/c from ED?: No Time of Disposition: 06:30 <Guillermina Alegria - Last Filed: 02/09/24 00:01> Clinical Impression: Headache Disposition: HOME SELF-CARE Condition: Stable Instructions (If sedation given, give patient instructions): Acute Headache (ED) Additional Instructions: Hopefully these medications will help your headache. Please follow-up with your doctor and return for any new or worsening symptoms Prescriptions: Metoclopramide [Reglan] 10 mg PO TID PRN #20 tab PRN Reason: Nausea Ketorolac [Toradol] 10 mg PO Q8HR PRN #15 tab PRN Reason: Headache Referrals: Ray Segovia MD [Primary Care Provider] - 1-2 days
[2024-02-01 02:41] LABS: INR 0.8 (<1.2); Partial Thromboplastin Time 24.5 sec (22.0-30.0); Prothrombin Time 9.4 sec (10.0-12.5)
[2024-02-01 02:45] LABS: ALT 31 U/L (4-34); African American GFR (CKD) 50 (>60 ml/min/1.73 sqM); Anion Gap 5 mmol/L; Blood Urea Nitrogen 21 mg/dL (7-17); Calcium 9.6 mg/dL (8.4-10.2); Carbon Dioxide 21 mmol/L (22-30); Chloride 111 mmol/L (98-107); Glucose 96 mg/dL (74-99); Non-African American GFR(CKD) 44 (>60 ml/min/1.73 sqM); Sodium 137 mmol/L (137-145)
[2024-02-01 02:59] LABS: AST 45 U/L (14-36); Albumin 3.8 g/dL (3.5-5.0); Alkaline Phosphatase 158 U/L (38-126); Potassium 5.7 mmol/L (3.5-5.1); Total Bilirubin 0.8 mg/dL (0.2-1.3); Total Protein 6.6 g/dL (6.3-8.2)
[2024-02-01] MEDS: ONDANSETRON 4 MG/2 ML VIAL IVP STA (03:53)
--- NOTE | 2024-02-01 06:08 | CT ---
ADDENDUM - Added by Sandy Perez MD on 02/01/2024 6:09 AM (-07:00) Correction: Impression: No evidence of acute intracranial pathology. EXAM: CT Head Without Intravenous Contrast CLINICAL HISTORY: ITS.REASON CT Reason: headache TECHNIQUE: Axial computed tomography images of the head/brain without intravenous contrast. CTDI is 1095.4 mGy and DLP is 49.1 mGy-cm. This CT exam was performed using one or more of the following dose reduction techniques: automated exposure control, adjustment of the mA and/or kV according to patient size, and/or use of iterative reconstruction technique. COMPARISON: Comparison made to prior head CT from February 28, 2022. FINDINGS: Brain: Unremarkable. No hemorrhage. No significant white matter disease. No edema. Ventricles: Unremarkable. No ventriculomegaly. Bones/joints: Unremarkable. No acute fracture. Soft tissues: Unremarkable. Sinuses: Unremarkable as visualized. No acute sinusitis. Mastoid air cells: Unremarkable as visualized. No mastoid effusion. IMPRESSION: Non-subacute intracranial pathology.
[2024-02-01] MEDS: METOCLOPRAMIDE 5 MG/ML 2 ML VIAL IVP STA (06:32)
[2024-02-01] MEDS: diphenhydrAMINE 50 MG/ML 1 ML VIAL IVP STA (06:32)
[2024-02-01] MEDS: KETOROLAC 15 MG/ML 1 ML VIAL IVP STA (06:33)
[2024-02-01] MEDS: DEXAMETHASONE SOD PHOSPHATE 10 MG/ML 1 ML VIAL IVP STA (06:33)
[2024-02-01 07:02] VITALS: BP 95/64; RESP 55
== END 2024-02-01 06:43 | disposition home or self-care (01) ==
LOC: EC 02:02
DX: R51.9 Headache, unspecified (principal); I45.10 Unspecified right bundle-branch block; F17.200 Nicotine dependence, unspecified, uncomplicated; Z88.0 Allergy status to penicillin
CPT/HCPCS: 36415; 93005; 80053; 84484; 85025; 85610; 85730; 70450; 99284; 96374; 96375 ×4; J1200; J1100; J2765; J2405; J1885

== ENCOUNTER 2024-02-21 19:47 | Outpatient (CLI) | payer MEDICARE | END 2024-02-21 19:48 | disposition left against medical advice (07) | LOC: 3 N SLEEP 19:47 | PROVIDERS: ATTEND Internal Medicine | DX: Z53.21 Procedure and treatment not carried out due to patient leaving prior to being seen by health care provider (principal) ==

== ENCOUNTER 2024-04-06 17:08 | Emergency (ER) | payer MEDICARE ==
[2024-04-06 17:12] VITALS: TEMP 97.8
[2024-04-06 17:50] LABS: Basophils # (A) 0.1 k/uL (0-0.2); Basophils % (A) 1 %; Eosinophils % (A) 0 %; HCT 46.8 % (34.0-46.0); HGB 15.4 gm/dL (11.4-16.0); Lymphocytes # (A) 2.2 k/uL (1.0-4.8); Lymphocytes % (A) 22 %; MCH 31.2 pg (25.0-35.0); MCV 94.5 fL (80.0-100.0); Mean Platelet Volume 7.9; Monocytes # (A) 0.6 k/uL (0-1.0); Monocytes % (A) 6 %; Neutrophils # (A) 6.8 k/uL (1.3-7.7); Neutrophils % (A) 69 %; Platelet Count 251 k/uL (150-450); RBC 4.95 m/uL (3.80-5.40); RDW 13.2 % (11.5-15.5); WBC 9.8 k/uL (3.8-10.6)
--- NOTE | 2024-04-06 17:58 | ED ---
Dizziness HPI - General Chief Complaint: Dizziness Stated Complaint: dizziness,vomiting Time Seen by Provider: 04/06/24 17:13 Source: patient Mode of arrival: ambulatory Limitations: no limitations - History of Present Illness Initial Comments: This patient is a 64-year-old woman who arrives of evaluation for what she was describing his dizziness. She had gone to urgent care earlier and described her symptoms. She has had symptoms going back approximately 10 days. She denies head injury. She does not have focal weakness or numbness. No change in sensation, speech or swallowing. MD Complaint: dizziness Onset/Timin -: days(s) Timing: gradual onset Description: "room spinning", off-balance, difficulty walking History of Same: No History of Trauma: No Severity: severe Improves With: remaining still Worsens With: movement Associated Symptoms: denies other symptoms - Related Data Home Medications Medication Instructions Recorded Confirmed Ipratropium-Albuterol Nebulize 3 ml INHALATION RT-BID PRN 11/04/21 04/06/24 [Duoneb 0.5 mg-3 mg/3 ml Soln] Ziprasidone [Geodon] 40 mg PO DAILY 11/04/21 04/06/24 Pantoprazole Sodium [Protonix] 40 mg PO AC-BID 11/12/21 04/06/24 Levothyroxine Sodium [Synthroid] 50 mcg PO DAILY 02/28/22 04/06/24 cloNIDine HCL 0.2 mg PO TID 02/28/22 04/06/24 Montelukast [Singulair] 10 mg PO HS 02/24/23 04/06/24 Ziprasidone [Geodon] 60 mg PO HS 02/24/23 04/06/24 Atorvastatin Calcium 10 mg PO HS 07/03/23 04/06/24 Ergocalciferol (Vitamin D2) 1,250 mcg PO TU 07/03/23 04/06/24 [Drisdol (50,000 Iu)] Famotidine [Pepcid] 20 mg PO BID 07/03/23 04/06/24 lamoTRIgine [LaMICtal] 100 mg PO BID 07/03/23 04/06/24 Fluticasone/Umeclidin/Vilanter 1 puff INHALATION RT-DAILY 04/06/24 04/06/24 [Trelegy Ellipta 200-62.5-25] Ipratropium-Albuterol Nebulize 3 ml INHALATION RT-HS 04/06/24 04/06/24 [Duoneb 0.5 mg-3 mg/3 ml Soln] Linaclotide [Linzess] 145 mcg PO DAILY 04/06/24 04/06/24 Mirtazapine 45 mg PO HS 04/06/24 04/06/24 Multivitamins, Thera [Multivitamin 1 tab PO DAILY 04/06/24 04/06/24 (formulary)] Pregabalin [Lyrica] 150 mg PO TID 04/06/24 04/06/24 Promethazine [Phenergan] 25 mg PO Q4H PRN 04/06/24 04/06/24 cycloSPORINE 0.05% OPHTH SOLN 1 applic BOTH EYES Q12H 04/06/24 04/06/24 [Restasis] hydrOXYzine pamoate [Vistaril] 50 mg PO HS PRN 04/06/24 04/06/24 lisinopriL [Zestril] 10 mg PO DAILY 04/06/24 04/06/24 oxyCODONE-APAP 5-325MG [Percocet 1 tab PO TID 04/06/24 04/06/24 5-325 mg] Previous Rx's Medication Instructions Recorded Meclizine [Antivert] 25 mg PO TID PRN #15 tab 04/06/24 Allergies Allergy/AdvReac Type Severity Reaction Status Date / Time amoxicillin Allergy Anaphylaxis Verified 04/06/24 19:30 Review of Systems ROS Statement: Those systems with pertinent positive or pertinent negative responses have been documented in the HPI. ROS Other: All systems not noted in ROS Statement are negative. Constitutional: Denies: fever, chills, weakness Eyes: Denies: vision change Respiratory: Denies: cough, dyspnea Cardiovascular: Denies: chest pain, palpitations, edema Gastrointestinal: Denies: abdominal pain, vomiting, diarrhea Genitourinary: Denies: dysuria, hematuria Musculoskeletal: Denies: back pain Skin: Denies: rash Neurological: Reports: as per HPI, vertigo. Denies: headache, weakness, numbness Past Medical History Past Medical History: COPD, GERD/Reflux, Renal Disease, Thyroid Disorder Additional Past Medical History / Comment(s): cysts on (R) kidney. PARATHYROID REMOVED, NAUSEA, CONSTIPATION, monoclonal gammopathy History of Any Multi-Drug Resistant Organisms: None Reported Past Surgical History: Cholecystectomy, Hysterectomy Additional Past Surgical History / Comment(s): parathyroidectomy, Cataract both eyes Past Anesthesia/Blood Transfusion Reactions: No Reported Reaction Additional Past Anesthesia/Blood Transfusion Reaction / Comment(s): "Have woken up during surgery before" COLONOSCOPY AND EGD " Past Psychological History: Anxiety, Bipolar, Depression Smoking Status: Current every day smoker Past Alcohol Use History: None Reported Past Drug Use History: None Reported - Past Family History Father Family Medical History: Cancer, Coronary Artery Disease (CAD) Additional Family Medical History / Comment(s): Father is of blood cancer. Mother Family Medical History: Coronary Artery Disease (CAD) Additional Family Medical History / Comment(s): KIDNEY DISEASE Son(s) Family Medical History: Cancer Additional Family Medical History / Comment(s): Brain tumor - . Sister(s) Family Medical History: Cancer Additional Family Medical History / Comment(s): Breast cancer. General Exam Limitations: no limitations General appearance: alert, in no apparent distress Head exam: Present: atraumatic, normocephalic Eye exam: Present: normal appearance, nystagmus. Absent: scleral icterus, conjunctival injection Neck exam: Present: normal inspection, full ROM Respiratory exam: Present: normal lung sounds bilaterally. Absent: respiratory distress, wheezes, rales, rhonchi, chest wall tenderness, accessory muscle use Course Vital Signs 04/06/24 04/06/24 04/06/24 17:10 20:11 21:50 Temperature 97.8 F 97.8 F Pulse Rate 66 58 L 58 L Respiratory 16 12 18 Rate Blood Pressure 102/69 116/76 120/83 O2 Sat by Pulse 98 97 97 Oximetry EKG Findings - EKG Results: EKG: sinus rhythm, normal axis EKG shows: bradycardia (Rate 56 bpm) - Blocks, [place], Hypertrophy, ST Abn: AV and intraventricular conduction: right bundle branch block (fixed/intermittent, complete/incomplete) Repolarization changes or abnormalities: nonspecific abnormality, ST segment, and/or T wave Medical Decision Making - Medical Decision Making The patient had chest x-ray which I interpreted as negative for acute infiltrate, pneumothorax, congestive heart failure The patient had CT angiography of the brain which I interpreted as negative for mass effect or midline shift. No vertebrobasilar occlusion Was pt. sent in by a medical professional or institution ([facility], [facility], urgent care, hospital, or long term...) When possible be specific @ -[No] Did you speak to anyone other than the patient for history (EMS, parent, family, police, friend...)? What history was obtained from this source @ -[No] Did you review nursing and triage notes (agree or disagree)? Why? @ -[I reviewed and agree with nursing and triage notes] Were old charts reviewed (outside hosp., previous admission, EMS record, old EKG, old radiological studies, urgent care reports/EKG's, long term records)? Report findings @ -[No old charts were reviewed] Differential Diagnosis (chest pain, altered mental status, abdominal pain women, abdominal pain men, vaginal bleeding, weakness, fever, dyspnea, syncope, headache, dizziness, GI bleed, back pain, seizure, CVA, palpatations, mental health, musculoskeletal)? @ -[Differential Dizziness: Benign paroxysmal positional Vertigo, Menieres disease, otitis media, acoustic neuroma, vertebrobasilar insufficiency, cerebellar stroke, encephalitis, hypovolemic, arrhythmia, coronary artery syndrome, anemia, this is not meant to be an all-inclusive list EKG interpreted by me (3pts min.). @ -[I interpreted as above] X-rays interpreted by me (1pt min.). @ -[I interpreted as above CT interpreted by me (1pt min.). @ -[I interpreted as above U/S interpreted by me (1pt. min.). @ -[None done] What testing was considered but not performed or refused? (CT, X-rays, U/S, labs)? Why? @ -[None] What meds were considered but not given or refused? Why? @ -[None] Did you discuss the management of the patient with other professionals (rosario elliott i.e. [facility] Lombardi, [facility], lab, RT, psych nurse, social media strategist, muffle worker, teacher, title officer, business case analyst)? Give summary @ -[No] Was smoking cessation discussed for >3mins.? @ -[No] Was critical care preformed (if so, how long)? @ -[No] Were there social determinants of health that impacted care today? How? (Homelessness, low income, unemployed, alcoholism, drug addiction, transportation, low edu. Level, literacy, decrease access to med. care, prison, rehab)? @ -[No] Was there de-escalation of care discussed even if they declined (Discuss DNR or withdrawal of care, Hospice)? DNR status @ -[No] What co-morbidities impacted this encounter? (DM, HTN, Smoking, COPD, CAD, Cancer, CVA, ARF, Chemo, Hep., AIDS, mental health diagnosis, sleep apnea, morbid obesity)? @ -[None] Was patient admitted / discharged? Hospital course, mention meds given and route, prescriptions, significant lab abnormalities, going to OR and other pertinent info. @ -[hospital course] Undiagnosed new problem with uncertain prognosis? @ -[No] Drug Therapy requiring intensive monitoring for toxicity (Heparin, Nitro, Insulin, Cardizem)? @ -[No] Were any procedures done? @ -[No] Diagnosis/symptom? @ -[d acute vertigo Acute, or Chronic, or Acute on Chronic? @ -[Acute Uncomplicated (without systemic symptoms) or Complicated (systemic symptoms)? @ -[Acute Side effects of treatment? @ -[No] Exacerbation, Progression, or Severe Exacerbation? @ -[No] Poses a threat to life or bodily function? How? (Chest pain, [place], NH, pneumonia, PE, COPD, DKA, ARF, appy, cholecystitis, CVA, Diverticulitis, Homicidal, Suicidal, threat to staff... and all critical care pts) @ -[No] - Lab Data Result diagrams: 04/06/24 17:46 04/06/24 17:46 Lab Results 04/06/24 04/06/24 04/06/24 Range/Units 17:46 17:46 17:46 WBC 9.8 (3.8-10.6) k/uL RBC 4.95 (3.80-5.40) m/uL Hgb 15.4 (11.4-16.0) gm/dL Hct 46.8 H (34.0-46.0) % MCV 94.5 (80.0-100.0) fL MCH 31.2 (25.0-35.0) pg MCHC 33.0 (31.0-37.0) g/dL RDW 13.2 (11.5-15.5) % Plt Count 251 (150-450) k/uL MPV 7.9 Neutrophils % 69 % Lymphocytes % 22 % Monocytes % 6 % Eosinophils % 0 % Basophils % 1 % Neutrophils # 6.8 (1.3-7.7) k/uL Lymphocytes # 2.2 (1.0-4.8) k/uL Monocytes # 0.6 (0-1.0) k/uL Eosinophils # 0.0 (0-0.7) k/uL Basophils # 0.1 (0-0.2) k/uL PT 10.4 (10.0-12.5) sec INR 0.9 (<1.2) APTT 27.2 (22.0-30.0) sec Sodium 138 (137-145) mmol/L Potassium 4.2 (3.5-5.1) mmol/L Chloride 107 (98-107) mmol/L Carbon Dioxide 25 (22-30) mmol/L Anion Gap 6 mmol/L BUN 28 H (7-17) mg/dL Creatinine 1.47 H (0.52-1.04) mg/dL Est GFR (CKD-EPI)AfAm 43 (>60 ml/min/1.73 sqM) Est GFR (CKD-EPI)NonAf 38 (>60 ml/min/1.73 sqM) Glucose 80 (74-99) mg/dL Calcium 10.6 H (8.4-10.2) mg/dL Total Bilirubin 0.5 (0.2-1.3) mg/dL AST 37 H (14-36) U/L ALT 32 (4-34) U/L Alkaline Phosphatase 164 H (38-126) U/L Creatine Kinase 50 (30-135) U/L Troponin I (0.000-0.034) ng/mL Total Protein 6.7 (6.3-8.2) g/dL Albumin 4.4 (3.5-5.0) g/dL Urine Color Urine Appearance (Clear) Urine pH (5.0-8.0) Ur Specific [place] (1.001-1.035) Urine Protein (Negative) Urine Glucose (UA) (Negative) Urine Ketones (Negative) Urine Blood (Negative) Urine Nitrite (Negative) Urine Bilirubin (Negative) Urine Urobilinogen (<2.0) mg/dL Ur Leukocyte Esterase (Negative) 04/06/24 04/06/24 Range/Units 17:46 18:34 WBC (3.8-10.6) k/uL RBC (3.80-5.40) m/uL Hgb (11.4-16.0) gm/dL Hct (34.0-46.0) % MCV (80.0-100.0) fL MCH (25.0-35.0) pg MCHC (31.0-37.0) g/dL RDW (11.5-15.5) % Plt Count (150-450) k/uL MPV Neutrophils % % Lymphocytes % % Monocytes % % Eosinophils % % Basophils % % Neutrophils # (1.3-7.7) k/uL Lymphocytes # (1.0-4.8) k/uL Monocytes # (0-1.0) k/uL Eosinophils # (0-0.7) k/uL Basophils # (0-0.2) k/uL PT (10.0-12.5) sec INR (<1.2) APTT (22.0-30.0) sec Sodium (137-145) mmol/L Potassium (3.5-5.1) mmol/L Chloride (98-107) mmol/L Carbon Dioxide (22-30) mmol/L Anion Gap mmol/L BUN (7-17) mg/dL Creatinine (0.52-1.04) mg/dL Est GFR (CKD-EPI)AfAm (>60 ml/min/1.73 sqM) Est GFR (CKD-EPI)NonAf (>60 ml/min/1.73 sqM) Glucose (74-99) mg/dL Calcium (8.4-10.2) mg/dL Total Bilirubin (0.2-1.3) mg/dL AST (14-36) U/L ALT (4-34) U/L Alkaline Phosphatase (38-126) U/L Creatine Kinase (30-135) U/L Troponin I <0.012 (0.000-0.034) ng/mL Total Protein (6.3-8.2) g/dL Albumin (3.5-5.0) g/dL Urine Color Colorless Urine Appearance Clear (Clear) Urine pH 5.5 (5.0-8.0) Ur Specific [place] 1.011 (1.001-1.035) Urine Protein Negative (Negative) Urine Glucose (UA) Negative (Negative) Urine Ketones Negative (Negative) Urine Blood Negative (Negative) Urine Nitrite Negative (Negative) Urine Bilirubin Negative (Negative) Urine Urobilinogen <2.0 (<2.0) mg/dL Ur Leukocyte Esterase Negative (Negative) Disposition Clinical Impression: Vertigo Disposition: HOME SELF-CARE Condition: Good Instructions (If sedation given, give patient instructions): Dizziness (ED) Prescriptions: Meclizine [Antivert] 25 mg PO TID PRN #15 tab PRN Reason: Vertigo Is patient prescribed a controlled substance at d/c from ED?: No Referrals: Ray Segovia MD [Primary Care Provider] - 1-2 days
[2024-04-06 18:03] LABS: INR 0.9 (<1.2); Partial Thromboplastin Time 27.2 sec (22.0-30.0); Prothrombin Time 10.4 sec (10.0-12.5)
[2024-04-06 18:08] LABS: ALT 32 U/L (4-34); AST 37 U/L (14-36); African American GFR (CKD) 43 (>60 ml/min/1.73 sqM); Albumin 4.4 g/dL (3.5-5.0); Alkaline Phosphatase 164 U/L (38-126); Anion Gap 6 mmol/L; Blood Urea Nitrogen 28 mg/dL (7-17); Calcium 10.6 mg/dL (8.4-10.2); Carbon Dioxide 25 mmol/L (22-30); Chloride 107 mmol/L (98-107); Creatine Kinase 50 U/L (30-135); Glucose 80 mg/dL (74-99); Non-African American GFR(CKD) 38 (>60 ml/min/1.73 sqM); Potassium 4.2 mmol/L (3.5-5.1); Sodium 138 mmol/L (137-145); Total Bilirubin 0.5 mg/dL (0.2-1.3); Total Protein 6.7 g/dL (6.3-8.2)
--- NOTE | 2024-04-06 18:44 | XR ---
EXAMINATION TYPE: XR chest 2V DATE OF EXAM: 04/06/2024 COMPARISON: 08/07/2023 HISTORY: 64-year-old female confusion, altered mental status, nausea/vomiting TECHNIQUE: AP and lateral views FINDINGS: Patient is rotated toward the left artery and internal carotid mediastinal contours. Low lung volumes with crowded vascular markings. Heart is upper limits of normal in size. Mild interstitial prominenc e as a chronic appearance. No consolidation or pleural effusion otherwise seen. IMPRESSION: Borderline heart size. Limited by hypoventilatory changes. Correlate for underlying bronchitis or ast hma. No focal infiltrate.
[2024-04-06 18:51] LABS: Appearance,Urine Clear (Clear); Bilirubin,Urine Negative (Negative); Blood,Urine Negative (Negative); Color,Urine Colorless; Glucose,Urine (UA) Negative (Negative); Ketones,Urine Negative (Negative); Leukocyte Esterase,Urine Negative (Negative); Nitrite,Urine Negative (Negative); PH, Urine 5.5 (5.0-8.0); Protein,Urine Negative (Negative); Specific Gravity,Urine 1.011 (1.001-1.035); Urobilinogen,Urine <2.0 mg/dL (<2.0)
--- NOTE | 2024-04-06 19:59 | CT ---
EXAMINATION TYPE: CT head without contrast CT angio head neck DATE OF EXAM: 04/06/2024 COMPARISON: CT brain 02/01/2024 HISTORY: 64-year-old female Acute vertigo TECHNIQUE: Contiguous axial scanning of the with brain performed without and with IV Contrast, patien t injected with 65 cc mL of Isovue 370. Additional postcontrast CTA of the neck. Coronal/sagittal rec onstructions performed. 3-D reconstructions generated on a dedicated workstation. CT DLP: 1462.5 mGycm Automated exposure control for dose reduction was used. FINDINGS: CT HEAD: No evidence for acute intracranial hemorrhage, acute, mass, mass effect, midline shift, or extra-axia l fluid collection. No hydrocephalus. No effacement of cerebral sulci or basal subarachnoid cisterns. [place]-white matter differentiation is maintained. Paranasal sinuses and mastoid air cells well pneumatized. Orbits and globes are intact. Slight rightw jeaneth nasal septal deviation. CT ANGIOGRAPHY NECK: Conventional arch was a branching anatomy. The right vertebral artery is slightly more dominant. Both vertebral arteries are otherwise patent th roughout the course. The bilateral common and bilateral internal carotid arteries are patent without significant stenosis. The proximal left ICA is tortuous. The upper right ICA is tortuous. CT ANGIOGRAPHY HEAD: The V4 segment left vertebral artery becomes even more hypoplastic. Otherwise, both vertebral and bas ilar arteries as well as the remainder of the posterior circulation are patent. The bilateral internal carotid arteries are patent. The A1 segment right anterior cerebral artery is hypoplastic. Otherwise, the remainder of the anterior circulation is patent. Dural venous sinuses are patent. IMPRESSION: 1. HEAD: NO ACUTE INTRACRANIAL ABNORMALITY SEEN. 2. CTA NECK: WIDELY PATENT VERTEBRAL AND CAROTID ARTERIES OF THE NECK. 3. CTA HEAD: NO LARGE VESSEL INTRACRANIAL ARTERIAL OCCLUSION, SIGNIFICANT STENOSIS, OR ANEURYSMAL AJ NGE IS SEEN.
[2024-04-06 20:12] VITALS: PULSE 58
[2024-04-06 21:52] VITALS: BP 120/83; RESP 18
[2024-04-06] MEDS: MECLIZINE 12.5 MG TAB PO STA (22:02)
== END 2024-04-06 22:04 | disposition home or self-care (01) ==
LOC: EC 17:08
DX: R42 Dizziness and giddiness (principal); F17.200 Nicotine dependence, unspecified, uncomplicated; Z88.0 Allergy status to penicillin
CPT/HCPCS: 36415; 93005; 80053; 82550; 84484; 85025; 85610; 85730; 81003; 71046; 70496; 70498; 99284; Q9967

== ENCOUNTER → 2024-04-26 | Outpatient (CLI) | payer MEDICARE ==
[2024-04-26 11:46] LABS: African American GFR (CKD) 46 (>60 ml/min/1.73 sqM); Blood Urea Nitrogen 33 mg/dL (7-17); Non-African American GFR(CKD) 40 (>60 ml/min/1.73 sqM)
== END | disposition home or self-care (01) ==
LOC: RADCTMAIN 11:09
PROVIDERS: ATTEND Family Medicine
DX: R91.8 Other nonspecific abnormal finding of lung field (principal)
CPT/HCPCS: 82565; 84520

== ENCOUNTER → 2024-05-05 | Outpatient (CLI) | payer MEDICARE ==
--- NOTE | 2024-05-05 17:43 | US ---
EXAMINATION TYPE: US kidneys/renal and bladder DATE OF EXAM: 05/05/2024 COMPARISON: CLINICAL INDICATION: Female, 64 years old with history of N18.32 CKD 3B; abnormal labs. Hx renal cys ts. EXAM MEASUREMENTS: Right Kidney: 8.8 x 3.7 x 3.5 cm Left Kidney: 9.8 x 4.2 x 3.7 cm Post Void Residual Volume: 276.9 mL Right Kidney: Echogenic in appearance. Thin cortex. Cystic lesion = 2.4 x 2.6 x 2.4 cm Left Kidney: Echogenic in appearance. Thin cortex. Multiple cystic lesions seen, with largest super ior lateral = 2.2 x 1.6 x 2.2 cm Bladder: distended, anechoic Bilateral Jets seen IMPRESSION: 1. Bilateral echogenic and thin renal cortices compatible with chronic medical renal disease. 2. No hydronephrosis or nephrolithiasis. 3. Bilateral renal lesions most likely on the basis of benign simple cyst.
== END | disposition home or self-care (01) ==
LOC: RADUSWWP 04-20 15:54
PROVIDERS: ATTEND Internal Medicine Nephrology
DX: N18.32 Chronic kidney disease, stage 3b (principal)
CPT/HCPCS: 76770

== ENCOUNTER 2024-06-02 00:04 | Inpatient (IN) | payer MEDICARE, MEDICAID ==
[2024-06-02 09:18] LABS: Prothrombin Time 10.6 sec (10.0-12.5)
[2024-06-02 09:25] LABS: Basophils # (A) 0.1 k/uL (0-0.2); Basophils % (A) 0 %; Eosinophils % (A) 0 %; HCT 48.6 % (34.0-46.0); HGB 16.7 gm/dL (11.4-16.0); Lymphocytes % (A) 31 %; MCH 31.7 pg (25.0-35.0); MCHC 34.4 g/dL (31.0-37.0); MCV 92.3 fL (80.0-100.0); Mean Platelet Volume 8.5; Monocytes # (A) 0.9 k/uL (0-1.0); Monocytes % (A) 7 %; Neutrophils # (A) 7.6 k/uL (1.3-7.7); Neutrophils % (A) 60 %; Platelet Count 327 k/uL (150-450); RBC 5.27 m/uL (3.80-5.40); RDW 12.7 % (11.5-15.5); WBC 12.8 k/uL (3.8-10.6)
[2024-06-02 13:59] LABS: ALT 19 U/L (4-34); AST 26 U/L (14-36); Acetaminophen <10.0 ug/mL; African American GFR (CKD) 49 (>60 ml/min/1.73 sqM); Albumin 4.6 g/dL (3.5-5.0); Alcohol <10 mg/dL; Alkaline Phosphatase 201 U/L (38-126); Anion Gap 10 mmol/L; Blood Urea Nitrogen 17 mg/dL (7-17); Calcium 10.1 mg/dL (8.4-10.2); Carbon Dioxide 19 mmol/L (22-30); Chloride 117 mmol/L (98-107); Glucose 96 mg/dL (74-99); Non-African American GFR(CKD) 42 (>60 ml/min/1.73 sqM); Salicylate <1.0 mg/dL; Sodium 146 mmol/L (137-145); Total Bilirubin 0.5 mg/dL (0.2-1.3); Total Protein 6.9 g/dL (6.3-8.2)
[2024-06-02] MEDS: ONDANSETRON ODT 4 MG TAB PO STA (14:00)
[2024-06-02] MEDS: BUTALB/APAP/CAFF 50-325-40MG TAB PO STA (14:00)
[2024-06-02 14:12] LABS: Amphetamine Screen,Urine Not Detected (NotDetected); Barbiturate Screen,Urine Detected (NotDetected); Benzodiazepines Screen,Urine Detected (NotDetected); Cocaine Screen,Urine Not Detected (NotDetected); Methadone Screen, Urine Not Detected (NotDetected); Opiate Screen,Urine Not Detected (NotDetected); Oxycodone Screen, Urine Detected (NotDetected); Phencyclidine Screen,Urine Not Detected (NotDetected); Tricyclic Antidepressant,Urine Not Detected (NotDetected); Urn Cannabinoid Scrn Not Detected (NotDetected)
[2024-06-02] MEDS ORDERED: hydrOXYzine pamoate 25 MG CAP PO PRN (16:20)
[2024-06-02] MEDS ORDERED: PROMETHAZINE 25 MG TAB PO PRN (16:20)
[2024-06-02] MEDS ORDERED: OLANZapine 10 MG VIAL IM PRN (16:23)
[2024-06-02] MEDS ORDERED: MAGNESIUM HYDROXIDE 2,400 MG/30 ML CUP PO PRN (16:23)
[2024-06-02] MEDS ORDERED: MAG HYDROX/AL HYDROX/SIMETH 355 ML BOTTLE PO PRN (16:23)
[2024-06-02] MEDS ORDERED: OLANZapine 5 MG TAB PO PRN (16:31)
[2024-06-02] MEDS: PANTOPRAZOLE 40 MG TABLET PO SCH (16:53)
[2024-06-02] MEDS: IBUPROFEN 600 MG TAB PO PRN (18:38)
[2024-06-02] MEDS ORDERED: IPRATROPIUM-ALBUTEROL 3 ML NEB INHALATION SCH (20:00)
[2024-06-02] MEDS: lamoTRIgine 100 MG TAB PO SCH (21:01)
[2024-06-02] MEDS: ZIPRASIDONE 60 MG CAP PO SCH (21:01)
[2024-06-02] MEDS: MONTELUKAST 10 MG TAB PO SCH (21:01)
[2024-06-02] MEDS: ATORVASTATIN 10 MG TAB PO SCH (21:01)
[2024-06-02] MEDS: FAMOTIDINE 20 MG TAB PO SCH (21:02)
[2024-06-02] MEDS: ALBUTEROL INHALER 60 PUFF/8 GM INHALER (MHU) INHALATION SCH (21:02)
[2024-06-02] MEDS: cloNIDine HCL 0.2 MG TAB PO SCH (21:02)
[2024-06-02] MEDS: PREGABALIN 75 MG CAP PO SCH (21:02)
[2024-06-02] MEDS: MIRTAZAPINE 45 MG TABLET PO SCH (21:03)
[2024-06-02] MEDS: cycloSPORINE 0.05% OPHTH 0.4 ML DROPERETTE BOTH EYES SCH (22:26)
[2024-06-02] MEDS: oxyCODONE-APAP 5-325MG 1 EACH TAB PO SCH (22:26)
[2024-06-03] MEDS: LEVOTHYROXINE 50 MCG TAB PO SCH (06:11)
[2024-06-03] MEDS: BUTALB/APAP/CAFF 50-325-40MG TAB PO PRN (09:23)
[2024-06-03] MEDS: MULTIVITAMINS, THERA 1 EACH TAB PO SCH (09:24)
[2024-06-03] MEDS: ZIPRASIDONE 40 MG CAP PO SCH (09:24)
[2024-06-03] MEDS: lisinopriL 10 MG TAB PO SCH (09:24)
[2024-06-03] MEDS: SYMBICORT 160-4.5 MCG INHALER (MHU) INHALATION SCH (09:25)
[2024-06-03] MEDS: TIOTROPIUM 2.5 MCG INHALER (MHU) INHALATION SCH (09:25)
[2024-06-03] MEDS: FLUTICASONE NASAL 50MCG/SPRAY 16GM BTL EA NOSTRIL SCH (09:31)
[2024-06-03] MEDS: [UNRECOGNIZED DRUG - OTHER] PO SCH (09:32)
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
[2024-06-03] MEDS: NICOTINE 21MG/24HR PATCH TRANSDERM SCH (14:57)
[2024-06-04 05:12] LABS: Chol/HDL Ratio 2.97 Ratio; LDL Cholesterol,Calculated 111.2 mg/dL (0.0-131.0)
[2024-06-04 12:46] LABS: Appearance,Urine Clear (Clear); Bilirubin,Urine Negative (Negative); Blood,Urine Negative (Negative); Color,Urine Light Yellow; Glucose,Urine (UA) Negative (Negative); Ketones,Urine Negative (Negative); Leukocyte Esterase,Urine Negative (Negative); Nitrite,Urine Negative (Negative); PH, Urine 5.5 (5.0-8.0); Protein,Urine Negative (Negative); Specific Gravity,Urine 1.013 (1.001-1.035); Urobilinogen,Urine <2.0 mg/dL (<2.0)
[2024-06-04] MEDS: TAMSULOSIN 0.4 MG CAP.ER.24H PO SCH (16:07)
[2024-06-04] MEDS ORDERED: traZODone HCL 50 MG TAB PO PRN (18:31)
--- NOTE | 2024-06-04 18:31 | P.PN ---
Progress Note - Text Progress Note Date: 06/04/24 Interval history: Patient was seen at the bedside and was directable and agreeable to speak with mortgage loan underwriter. She shared that she was feeling "upset" due to concerns about her 's health. He has recently experienced hospitalization secondary to ulcers and during her phone call with him this morning he shared that he had had an increase in GI symptoms. She urged him to reach out to his healthcare team and consider going to the emergency department. He said that this had resolved, but she was still worried. Additionally she reports not sleeping very well she explained that her averages 2 to 3 hours at home each night though she may get up to 5 hours some nights she has trouble falling asleep and sometimes finds herself awake during the middle of the night. When asked more about the circumstances that brought her to the hospital she shared that she felt generally overwhelmed by the prospect of helping her sister move in the midst of her 's health challenge and she often finds herself being the go to person and has a hard time saying no to request for her help. She shared that she has been working on this in DBT and finds it difficult to change how she engages with others, but she is working on it. At this time patient denies any suicidal or homicidal ideations intent or plan. Denies any auditory or visual hallucinations. Patient denies any side effects from the medications and has been compliant with meds. Mental status exam: General Appearance: Patient appears to be stated age is alert, directable, and cooperative. Behavior: No agitated behavior. Patient is calm and directable Speech: Patient's speech is fluent and nonpressured. Mood/Affect: Mood is "upset", affect is generally neutral and constricted. Suicidality/Homicidality: Patient denies having any suicidal or homicidal ideation intent or plan. Perceptions: Patient denies any auditory or visual hallucinations. Though content/process: There is no evidence of any delusional thought content and thought process is linear and goal-directed. Memory and concentration: AOX3, grossly intact for the purposes of this session Judgment and insight: fair Assessment/Plan: Continue with current diagnosis: Bipolar disorder, PTSD, alcohol use disorder in sustained remission (since 2020) Patient continues to meet criteria for inpatient psychiatric admission for symptom stabilization and safety. Patient will be maintained on current psychotropic medication regimen. Will order Trazodone PRN to help with sleep onset. Monitor for medication compliance and for any psychotropic medication side effects. Will continue to monitor ongoing response to treatment. Encouraged participation in milieu.
[2024-06-04] MEDS ORDERED: MELATONIN 3 MG TABLET PO PRN (18:34)
[2024-06-04] MEDS: FLUCONAZOLE 100 MG TAB PO ONE (22:08)
[2024-06-05] MEDS: FAMOTIDINE 20 MG TAB PO SCH (09:46)
--- NOTE | 2024-06-05 18:25 | P.PN ---
Progress Note - Text Progress Note Date: 06/05/24 Interval history: Patient was seen in the hallway and was tearful after a phone call. She was agreeable to meet in the office and discuss how she is doing. He explained that she was hoping to not notify her mother or sister for hospital admission however they stop by her house today unannounced and her ultimately had to share that she was in the hospital. She explained that this made her sad because her mom thinks she is "weak" and does not understand mental health or the need for support and care. Validated her feelings and provided space for her to share this difficulty. We discussed the plan to trial melatonin; she did not receive it last night as she did not know to ask for it. She continues to struggle with sleep and we discussed that trazodone could potentially interact with some of her other medications and would be a less favorable choice at this time. In endorses feeling "okay" overall. She denies suicidal ideation, intent, or plan, and denies homicidal ideation, intent, or plan. She is not experiencing any hallucinations. Mental status exam: General Appearance: Patient appears to be stated age is alert, directable, and cooperative. Behavior: No agitated behavior. Patient is directable. No psychomotor symptoms or abnormal movements. Speech: Patient's speech is fluent and nonpressured. Mood/Affect: Mood is "okay", affect is tearful then more calm. Suicidality/Homicidality: Patient denies having any suicidal or homicidal ideation intent or plan. Perceptions: Patient denies any auditory or visual hallucinations. Though content/process: There is no evidence of any delusional thought content and thought process is linear and goal-directed. Memory and concentration: AOX3, grossly intact for the purposes of this session Judgment and insight: fair Assessment/Plan: Continue with current diagnosis: Bipolar disorder, PTSD, alcohol use disorder in sustained remission (since 2020) Patient continues to meet criteria for inpatient psychiatric admission for symptom stabilization and safety. Patient will be maintained on current psychotropic medication regimen. Will order scheduled Melatonin to help with sleep onset. Timed this for 8pm to take approximately one hour before bed. Monitor for medication compliance and for any psychotropic medication side effects. Will continue to monitor ongoing response to treatment. Encouraged participation in milieu.
[2024-06-05] MEDS: MELATONIN 3 MG TABLET PO SCH (20:45)
--- NOTE | 2024-06-06 06:53 | P.GSCN ---
History of Present Illness Consult date: 06/05/24 Reason for Consult: Urinary retention Requesting physician: Brain English History of present illness: The patient is a 64-year-old white female hospitalized following attempted overdose. For the past month, she has experienced difficulty voiding. She reports suprapubic pressure while voiding. At night, she experiences significant difficulty voiding, and in the morning is unable to void until approximately 11 AM. She denies dysuria and hematuria. She does report mild stress urinary incontinence requiring the use of 2 liners daily. She has been treated for UTIs in the past. She denies any prior history of urolithiasis. She has undergone a SUKHJINDER/USO in the remote past. She has not had a recent pelvic examination. She has not noted any vaginal bulges. Review of Systems - Genitourinary Genitourinary: Reports as per HPI - Psychiatric Reports depression Past Medical History Past Medical History: COPD, GERD/Reflux, Renal Disease, Thyroid Disorder Additional Past Medical History / Comment(s): cysts on (R) kidney. PARATHYROID REMOVED, NAUSEA, CONSTIPATION, monoclonal gammopathy History of Any Multi-Drug Resistant Organisms: None Reported Past Surgical History: Cholecystectomy, Hysterectomy Additional Past Surgical History / Comment(s): parathyroidectomy, Cataract both eyes Past Anesthesia/Blood Transfusion Reactions: No Reported Reaction Additional Past Anesthesia/Blood Transfusion Reaction / Comm: "Have woken up d uring surgery before" COLONOSCOPY AND EGD " Past Psychological History: Anxiety, Bipolar, Depression Additional Psychological History / Comment(s): Pt resides with her spouse. Smoking Status: Current every day smoker Past Alcohol Use History: None Reported Additional Past Alcohol Use History / Comment(s): Pt started smoking in 1976 SMOKES 1/2 PPD Past Drug Use History: None Reported Additional Drug Use History / Comment(s): PAST HISTORY 2020 - Past Family History Father Family Medical History: Cancer, Coronary Artery Disease (CAD) Additional Family Medical History / Comment(s): Father is of blood cancer. Mother Family Medical History: Coronary Artery Disease (CAD) Additional Family Medical History / Comment(s): KIDNEY DISEASE Son(s) Family Medical History: Cancer Additional Family Medical History / Comment(s): Brain tumor - . Sister(s) Family Medical History: Cancer Additional Family Medical History / Comment(s): Breast cancer. Medications and Allergies Home Medications Medication Instructions Recorded Confirmed Type Ipratropium-Albuterol Nebulize 3 ml INHALATION RT-TID 11/04/21 06/02/24 History [Duoneb 0.5 mg-3 mg/3 ml Soln] Ziprasidone [Geodon] 40 mg PO DAILY 11/04/21 06/02/24 History Pantoprazole Sodium [Protonix] 40 mg PO AC-BID 11/12/21 06/02/24 History Levothyroxine Sodium [Synthroid] 50 mcg PO DAILY 02/28/22 06/02/24 History cloNIDine HCL 0.2 mg PO TID 02/28/22 06/02/24 History Montelukast [Singulair] 10 mg PO HS 02/24/23 06/02/24 History Ziprasidone [Geodon] 60 mg PO HS 02/24/23 06/02/24 History Atorvastatin Calcium 10 mg PO HS 07/03/23 06/02/24 History Ergocalciferol (Vitamin D2) 1,250 mcg PO Q7D 07/03/23 06/02/24 History [Drisdol (50,000 Iu)] Famotidine [Pepcid] 20 mg PO BID 07/03/23 06/02/24 History lamoTRIgine [LaMICtal] 100 mg PO BID 07/03/23 06/02/24 History Fluticasone/Umeclidin/Vilanter 1 puff INHALATION RT-DAILY 04/06/24 06/02/24 History [Trelegy Ellipta 200-62.5-25] Linaclotide [Linzess] 145 mcg PO DAILY 04/06/24 06/02/24 History Mirtazapine 45 mg PO HS 04/06/24 06/02/24 History Multivitamins, Thera [Multivitamin 1 tab PO DAILY 04/06/24 06/02/24 History (formulary)] Pregabalin [Lyrica] 150 mg PO TID 04/06/24 06/02/24 History Promethazine [Phenergan] 25 mg PO Q4H PRN 04/06/24 06/02/24 History cycloSPORINE 0.05% OPHTH SOLN 1 applic BOTH EYES Q12H 04/06/24 06/02/24 History [Restasis] hydrOXYzine pamoate [Vistaril] 50 mg PO HS PRN 04/06/24 06/02/24 History lisinopriL [Zestril] 10 mg PO DAILY 04/06/24 06/02/24 History oxyCODONE-APAP 5-325MG [Percocet 1 tab PO TID 04/06/24 06/02/24 History 5-325 mg] Butalb/APAP/Caff 50-325-40Mg 1 tab PO BID PRN 06/02/24 06/02/24 History [Fioricet 50-325-40] Fluticasone Nasal [place] [Flonase 1 spr EA NOSTRIL DAILY 06/02/24 06/02/24 Hist ory Nasal [place]] Allergies Allergy/AdvReac Type Severity Reaction Status Date / Time amoxicillin Allergy Anaphylaxis Verified 06/02/24 12:34 Surgical - Exam Vital Signs Temp Pulse Resp BP Pulse Ox 99.1 F 107 H 18 154/98 97 06/02/24 08:17 06/02/24 08:17 06/02/24 08:17 06/02/24 08:17 06/02/24 08:17 - General well developed, well nourished, no distress - Respiratory normal respiratory effort - Psychiatric oriented to time, oriented to person, oriented to place, speech is normal, memory intact Results - Labs 06/02/24 01:07 06/02/24 01:07 Assessment and Plan Assessment: The patient was straight catheterized on June 04 with a return of 450 cc. She was placed on tamsulosin and feels that she is urinating somewhat better as a result of this. Recent postvoid residuals have been approximately 300 cc. Her medications include Lyrica, Lamictal, Zyprexa, and Geodon. Some of these medications may have an anticholinergic effect, thus limiting her ability to empty the bladder. We discussed the use of Urecholine, which in my experience is of limited value and she declines a trial of this. She may have some degree of bladder outflow obstruction and would benefit from a pelvic examination and possible urethral dilation. For now, she will continue to take tamsulosin and follow-up with me as an outpatient. Please notify us if we can be of any further assistance during this hospitalization. (1) Incomplete bladder emptying Current Visit: Yes Status: Acute Code(s): R33.9 - RETENTION OF URINE, UNSPECIFIED SNOMED Code(s): 213062533 Time with Patient: Greater than 30
[2024-06-06 08:27] VITALS: BP 164/94; PULSE 119; RESP 18
--- NOTE | 2024-06-06 11:43 | P.PN ---
Progress Note - Text Progress Note Date: 06/06/24 Interval History: Patient was seen at the bedside and was agreeable to speak with investment underwriter. This morning she was found to be febrile and shared that she generally feels unwell. She describes experiencing back pain and bodyaches. Despite this her mood is described as "all right" and she feels that her physical discomfort is not impacting her mental or emotional state. She did express concern regarding having urinary incontinence overnight. This has not been an issue for her and she is unsure what may have contributed to that. She denies suicidal ideation. She denies homicidal ideation intent or plan. She has not experienced any auditory/visual hallucinations or delusions. Patient denies any side effects from the medications and has been compliant with meds. In regards to her physical health she denies any other symptoms or complaints aside from the fever and bodyaches. Mental status exam: General Appearance: Patient appears to be stated age is alert, directable, and cooperative. Behavior: No agitated behavior. Patient is directable. No psychomotor symptoms or abnormal movements. Speech: Patient's speech is fluent and nonpressured. Mood/Affect: Mood is "alright", affect is congruent, euthymic. Suicidality/Homicidality: Patient denies having any suicidal or homicidal ideation intent or plan. Perceptions: Patient denies any auditory or visual hallucinations. Though content/process: There is no evidence of any delusional thought content and thought process is linear and goal-directed. Memory and concentration: AOX3, grossly intact for the purposes of this session Judgment and insight: fair, improving Assessment -Borderline personality disorder -PTSD -Bipolar 1 disorder, most recent episode depressed -History of opioid use disorder -Alcohol use disorder, severe, in sustained remission -Cannabis use disorder, severe, in sustained remission -Sedative, hypnotic, or anxiolytic use disorder, severe, in sustained remission Patient continues to stabilize from a psychiatric perspective. She has been adherent to her medication regiment reports improve mood and outlook. She has consistently denied experiencing suicidal ideation for the last several days and is feeling resilient despite feeling physically unwell. She was tested for COVID-19 this morning, in light of her fever, and was found to be positive. The care team is working now on appropriate next steps for patient's care. Plan: -Patient continues to meet criteria for inpatient psychiatric admission for symptom stabilization and safety. -Medications: - Continue Lamictal 100 mg BID - Continue Ziprasidone 40 mg QAM & 60 mg QHS - Continue Mirtazapine 45 mg QHS -When necessary Ativan and Haldol for agitation/aggression. -NRT -nicotine patch -SW on board for discharge planning. Encouraged the patient to participate in milieu.
[2024-06-06] MEDS: ACETAMINOPHEN TAB 325 MG TAB PO SCH (15:41)
[2024-06-06 16:00] VITALS: TEMP 98.9
[2024-06-09] MEDS ORDERED: ERGOCALCIFEROL 1,250 MCG (50,000 IU) CAPSULE PO SCH (09:00)
== END 2024-06-06 20:02 | disposition short-term general hospital (02) | DRG 883 ==
LOC: EC 00:04 → 3MHU 16:19
PROVIDERS: ADMIT Psychiatry & Neurology Psychiatry; ATTEND Psychiatry & Neurology Psychiatry
DX: F60.3 Borderline personality disorder (principal); U07.1 COVID-19; F31.60 Bipolar disorder, current episode mixed, unspecified; T42.6X2A Poisoning by other antiepileptic and sedative-hypnotic drugs, intentional self-harm, initial encounter; J44.9 Chronic obstructive pulmonary disease, unspecified; T42.4X2A Poisoning by benzodiazepines, intentional self-harm, initial encounter; N39.3 Stress incontinence (female) (male); F43.10 Post-traumatic stress disorder, unspecified; K21.9 Gastro-esophageal reflux disease without esophagitis; F41.9 Anxiety disorder, unspecified; E07.9 Disorder of thyroid, unspecified; F17.210 Nicotine dependence, cigarettes, uncomplicated; F10.21 Alcohol dependence, in remission; R33.9 Retention of urine, unspecified; F12.21 Cannabis dependence, in remission; F13.21 Sedative, hypnotic or anxiolytic dependence, in remission; Z91.414 Personal history of adult intimate partner abuse; Z87.440 Personal history of urinary (tract) infections; Z81.8 Family history of other mental and behavioral disorders; Z79.899 Other long term (current) drug therapy; Z79.890 Hormone replacement therapy; Z71.6 Tobacco abuse counseling; Z88.0 Allergy status to penicillin; Z63.5 Disruption of family by separation and divorce; Z79.51 Long term (current) use of inhaled steroids
CPT/HCPCS: 36415; 80053; 80061; 80143; 80179; 80306; 80320; 81003; 83036; 84443; 85025; 85610; 85730; 87635; 87636; 96374; 96375; 99285

== ENCOUNTER 2024-06-06 18:01 | Observation (INO) | payer MEDICARE, OTHER ==
[2024-06-06] MEDS: oxyCODONE-APAP 5-325MG 1 EACH TAB PO PRN (23:14)
[2024-06-07] MEDS ORDERED: hydrOXYzine pamoate 25 MG CAP PO PRN (00:07)
[2024-06-07] MEDS ORDERED: PROMETHAZINE 25 MG TAB PO PRN (00:12)
[2024-06-07] MEDS ORDERED: FLUTICASONE NASAL 50MCG/SPRAY 16GM BTL EA NOSTRIL PRN (00:16)
[2024-06-07] MEDS: ONDANSETRON 4 MG TAB PO PRN (04:48)
[2024-06-07] MEDS: ACETAMINOPHEN TAB 325 MG TAB PO PRN (04:48)
[2024-06-07] MEDS: LEVOTHYROXINE 50 MCG TAB PO SCH (05:33)
[2024-06-07] MEDS: PANTOPRAZOLE 40 MG TABLET PO SCH (05:33)
[2024-06-07 06:21] LABS: Basophils % (A) 0 %; Eosinophils % (A) 0 %; HCT 40.5 % (34.0-46.0); Lymphocytes # (A) 0.7 k/uL (1.0-4.8); Lymphocytes % (A) 10 %; MCH 31.3 pg (25.0-35.0); MCHC 33.9 g/dL (31.0-37.0); MCV 92.4 fL (80.0-100.0); Mean Platelet Volume 7.5; Monocytes # (A) 0.8 k/uL (0-1.0); Monocytes % (A) 12 %; Neutrophils # (A) 5.3 k/uL (1.3-7.7); Neutrophils % (A) 76 %; RBC 4.39 m/uL (3.80-5.40); RDW 12.6 % (11.5-15.5)
[2024-06-07 06:37] LABS: HGB 13.7 gm/dL (11.4-16.0); Platelet Count 157 k/uL (150-450)
[2024-06-07 06:39] LABS: African American GFR (CKD) 39 (>60 ml/min/1.73 sqM); Anion Gap 4 mmol/L; Blood Urea Nitrogen 25 mg/dL (7-17); Calcium 9.3 mg/dL (8.4-10.2); Carbon Dioxide 26 mmol/L (22-30); Chloride 107 mmol/L (98-107); Glucose 92 mg/dL (74-99); Non-African American GFR(CKD) 34 (>60 ml/min/1.73 sqM); Potassium 4.8 mmol/L (3.5-5.1); Sodium 137 mmol/L (137-145)
[2024-06-07] MEDS: cycloSPORINE 0.05% OPHTH 0.4 ML DROPERETTE BOTH EYES SCH (09:10)
[2024-06-07] MEDS: lamoTRIgine 100 MG TAB PO SCH (09:11)
[2024-06-07] MEDS: PREGABALIN 75 MG CAP PO SCH (09:11)
[2024-06-07] MEDS: lisinopriL 10 MG TAB PO SCH (09:11)
[2024-06-07] MEDS: MULTIVITAMINS, THERA 1 EACH TAB PO SCH (09:11)
[2024-06-07] MEDS: ZIPRASIDONE 40 MG CAP PO SCH (09:23)
[2024-06-07] MEDS: MAGNESIUM OXIDE 400 MG TAB PO SCH (10:48)
[2024-06-07 11:12] LABS: Appearance,Urine Cloudy (Clear); Bacteria,Urine Few /hpf; Bilirubin,Urine Negative (Negative); Blood,Urine Large (Negative); Color,Urine Colorless; Glucose,Urine (UA) Negative (Negative); Ketones,Urine Negative (Negative); Leukocyte Esterase,Urine Large (Negative); Mucus,Urine Rare /hpf; Nitrite,Urine Negative (Negative); Protein,Urine 1+ (Negative); RBC,Urine 47 /hpf (0-5); Squamous Epithelial Cell,Urine 2 /hpf (0-4); Urobilinogen,Urine <2.0 mg/dL (<2.0); WBC,Urine >182 /hpf (0-5)
--- NOTE | 2024-06-07 11:59 | P.HPIM ---
History of Present Illness H&P Date: 06/07/24 Chief Complaint: Transferred from inpatient mental health unit, tested positive for COVID This is a 64-year-old female past medical history significant for COPD, chronic kidney disease, hypothyroidism, chronic bilateral leg pain/back pain, bipolar disorder, ongoing nicotine dependence, hypertension, prescription drug abuse initially admitted to inpatient mental health unit secondary to suicidal with overdose of Versed, and Lamictal. Spiked fevers, Tmax 101.5. ,occasional nonproductive cough, tested positive for COVID and transferred to medical floor. Maintaining O2 sats in the high 90s on room air, nonproductive cough. Suicide precautions maintained with sitter at bedside. UA reflecting UTI, urine culture ordered, ceftriaxone initiated. Denies urinary frequency or urgency. Denies suprapubic or flank pain. Creatinine 1.6, baseline 1.3. complains of headache. Denies chest pain, palpitations or shortness of breath. Review of Systems Constitutional: Denied any fatigue denied any fever. Cardio vascular: denied any chest pain, palpitations Gastrointestinal denied any nausea vomiting Pulmonary: Denied any shortness of breath cough Neurologic denied any new focal deficits ROS Statement: Those systems with pertinent positive or pertinent negative responses have been documented in the HPI. ROS Other: All systems not noted in ROS Statement are negative. Past Medical History Past Medical History: COPD, GERD/Reflux, Renal Disease, Thyroid Disorder Additional Past Medical History / Comment(s): cysts on (R) kidney. PARATHYROID REMOVED, NAUSEA, CONSTIPATION, monoclonal gammopathy History of Any Multi-Drug Resistant Organisms: None Reported Past Surgical History: Cholecystectomy, Hysterectomy Additional Past Surgical History / Comment(s): parathyroidectomy, Cataract both eyes Past Anesthesia/Blood Transfusion Reactions: No Reported Reaction Additional Past Anesthesia/Blood Transfusion Reaction / Comment(s): "Have woken up during surgery before" COLONOSCOPY AND EGD " Past Psychological History: Anxiety, Bipolar, Depression Additional Psychological History / Comment(s): Pt resides with her spouse. Smoking Status: Current every day smoker Past Alcohol Use History: None Reported Additional Past Alcohol Use History / Comment(s): Pt started smoking in 1976 SMOKES 1/2 PPD Past Drug Use History: None Reported Additional Drug Use History / Comment(s): PAST HISTORY 2020 - Past Family History Father Family Medical History: Cancer, Coronary Artery Disease (CAD) Additional Family Medical History / Comment(s): Father is of blood cancer. Mother Family Medical History: Coronary Artery Disease (CAD) Additional Family Medical History / Comment(s): KIDNEY DISEASE Son(s) Family Medical History: Cancer Additional Family Medical History / Comment(s): Brain tumor - . Sister(s) Family Medical History: Cancer Additional Family Medical History / Comment(s): Breast cancer. Medications and Allergies Home Medications Medication Instructions Recorded Confirmed Type Ipratropium-Albuterol Nebulize 3 ml INHALATION RT-TID 11/04/21 06/07/24 History [Duoneb 0.5 mg-3 mg/3 ml Soln] Ziprasidone [Geodon] 40 mg PO DAILY 11/04/21 06/07/24 History Pantoprazole Sodium [Protonix] 40 mg PO AC-BID 11/12/21 06/07/24 History Levothyroxine Sodium [Synthroid] 50 mcg PO DAILY 02/28/22 06/07/24 History cloNIDine HCL 0.2 mg PO TID 02/28/22 06/07/24 History Montelukast [Singulair] 10 mg PO HS 02/24/23 06/07/24 History Ziprasidone [Geodon] 60 mg PO HS 02/24/23 06/07/24 History Atorvastatin Calcium 10 mg PO HS 07/03/23 06/07/24 History Ergocalciferol (Vitamin D2) 1,250 mcg PO Q7D 07/03/23 06/07/24 History [Drisdol (50,000 Iu)] Famotidine [Pepcid] 20 mg PO BID 07/03/23 06/07/24 History lamoTRIgine [LaMICtal] 100 mg PO BID 07/03/23 06/07/24 History Fluticasone/Umeclidin/Vilanter 1 puff INHALATION RT-DAILY 04/06/24 06/07/24 History [Trelegy Ellipta 200-62.5-25] Linaclotide [Linzess] 145 mcg PO DAILY 04/06/24 06/07/24 History Mirtazapine 45 mg PO HS 04/06/24 06/07/24 History Multivitamins, Thera [Multivitamin 1 tab PO DAILY 04/06/24 06/07/24 History (formulary)] Pregabalin [Lyrica] 150 mg PO TID 04/06/24 06/07/24 History Promethazine [Phenergan] 25 mg PO Q4H PRN 04/06/24 06/07/24 History cycloSPORINE 0.05% OPHTH SOLN 1 applic BOTH EYES Q12H 04/06/24 06/07/24 History [Restasis] hydrOXYzine pamoate [Vistaril] 50 mg PO HS PRN 04/06/24 06/07/24 History lisinopriL [Zestril] 10 mg PO DAILY 04/06/24 06/07/24 History oxyCODONE-APAP 5-325MG [Percocet 1 tab PO TID 04/06/24 06/07/24 History 5-325 mg] Butalb/APAP/Caff 50-325-40Mg 1 tab PO BID PRN 06/02/24 06/07/24 History [Fioricet 50-325-40] Fluticasone Nasal [place] [Flonase 1 spr EA NOSTRIL DAILY 06/02/24 06/07/24 Histor y Nasal [place]] Allergies Allergy/AdvReac Type Severity Reaction Status Date / Time amoxicillin Allergy Anaphylaxis Verified 06/02/24 12:34 Physical Exam Vitals: Vital Signs Temp Pulse Resp BP BP Pulse Ox 06/07/24 07:00 99.1 F 72 18 112/68 96 06/07/24 05:37 100.0 F H 06/07/24 04:48 100.3 F H 06/07/24 01:34 101.5 F H 109 H 20 123/68 96 06/06/24 20:49 99.0 F 88 18 93/61 99 Intake and Output 06/06/24 06/07/24 06/07/24 22:59 06:59 14:59 Intake Total 560 Balance 560 Intake: Oral 560 Other: Voiding Method Toilet # Voids 1 2 1 Weight 74.09 kg GENERAL: Alert and oriented x 3, sitting up in bed, no acute distress. HEAD: Atraumatic, normocephalic. EYES: Pupils equal round and reactive to light, extraocular movements intact, sclera anicteric, conjunctiva normal. ENT:oropharynx clear without exudates. NECK: Normal range of motion, supple without lymphadenopathy or JVD LUNGS: Unlabored, equal air entry ,Breath sounds clear to auscultation, bilateral bases diminished HEART: Regular rate and rhythm without murmurs, rubs or gallops.S1S2 Normal. ABDOMEN: Soft, nontender, normoactive bowel sounds. No guarding, no rebound. No masses appreciated. EXTREMITIES: no pitting or edema. No clubbing or cyanosis. NEUROLOGICAL: Cranial nerves II through XII grossly intact SKIN: Warm, Dry, normal turgor, no rashes noted. Results CBC & Chem 7: 06/07/24 05:55 06/07/24 05:55 Labs: Abnormal Lab Results - Last 24 Hours (Table) 06/07/24 06/07/24 06/07/24 Range/Units 05:55 05:55 10:00 Lymphocytes # 0.7 L (1.0-4.8) k/uL BUN 25 H (7-17) mg/dL Creatinine 1.60 H (0.52-1.04) mg/dL Urine Appearance Cloudy H (Clear) Urine Protein 1+ H (Negative) Urine Blood Large H (Negative) Ur Leukocyte Esterase Large H (Negative) Urine RBC 47 H (0-5) /hpf Urine WBC >182 H (0-5) /hpf Urine WBC Clumps Few H (None) /hpf Urine Bacteria Few H (None) /hpf Urine Mucus Rare H (None) /hpf Assessment and Plan Assessment: Overdose, suicidal COVID infection, stable Acute UTI, culture pending, possibly related to urinary retention and placed on Flomax. Recently evaluated by urology on 06/05/2024 recommending further follow- up outpatient regarding potential degree of bladder outflow obstruction- potential urethral dilation. Acute on chronic kidney disease,Stage IIIB, secondary to the above, baseline creatinine 1.3. Bipolar disorder Borderline personality disorder History of polysubstance abuse disorder including prescription drugs; opiods, sedatives, hypnotics, Anxiolytics, alcohol, cannabis COPD, stable Hypothyroidism Ongoing nicotine dependence Gastroesophageal reflux disease Obesity, BMI 31.9 Plan: Continue on current medication regimen ,monitoring and symptomatic treatment. Antibiotics initiated for UTI, culture pending. Asymptomatic with COVID, continue O2 sats in the high 90s on room air. Magnesium for headache .maintain suicide precautions, aviation safety officer and follow closely with psychiatry as patient continues to meet inpatient criteria for mental health unit. Patient is stable, to transfer to mental health unit once completing quarantine. The impression and plan of care has been dictated as directed. : I performed a history and examination of this patient, discussed the same with the dictator. I agree with the dictator's note ,documented as a scribe. Any additional findings or plans will be noted.
[2024-06-07] MEDS: ZINC SULFATE 220 MG CAP PO SCH (14:51)
[2024-06-07] MEDS: TAMSULOSIN 0.4 MG CAP.ER.24H PO SCH (14:51)
[2024-06-07] MEDS: CHOLECALCIFEROL 125 MCG (5000 IU) TABLET PO SCH (14:52)
[2024-06-07] MEDS: cloNIDine HCL 0.1 MG TAB PO PRN (17:44)
[2024-06-07] MEDS: CEFDINIR 300 MG CAP PO SCH (20:11)
[2024-06-07] MEDS: ZIPRASIDONE 60 MG CAP PO SCH (20:11)
[2024-06-07] MEDS: MIRTAZAPINE 45 MG TABLET PO SCH (20:11)
[2024-06-07] MEDS: MONTELUKAST 10 MG TAB PO SCH (20:11)
[2024-06-07] MEDS: ATORVASTATIN 10 MG TAB PO SCH (20:11)
[2024-06-08] MEDS ORDERED: CEFDINIR 300 MG CAP PO SCH (09:00)
[2024-06-08] MEDS: PHENAZOPYRIDINE 200 MG TAB PO SCH (10:24)
--- NOTE | 2024-06-08 13:06 | P.PN ---
Subjective Progress Note Date: 06/08/24 H&P Date: 06/07/24 Chief Complaint: Transferred from inpatient mental health unit, tested positive for COVID This is a 64-year-old female past medical history significant for COPD, chronic kidney disease, hypothyroidism, chronic bilateral leg pain/back pain, bipolar disorder, ongoing nicotine dependence, hypertension, prescription drug abuse initially admitted to inpatient mental health unit secondary to suicidal with overdose of Versed, and Lamictal. Spiked fevers, Tmax 101.5. ,occasional nonproductive cough, tested positive for COVID and transferred to medical floor. Maintaining O2 sats in the high 90s on room air, nonproductive cough. Suicide precautions maintained with sitter at bedside. UA reflecting UTI, urine culture ordered, ceftriaxone initiated. Denies urinary frequency or urgency. Denies suprapubic or flank pain. Creatinine 1.6, baseline 1.3. complains of headache. Denies chest pain, palpitations or shortness of breath. 06/08/2024 no IV access, maintained on Ceftin for acute UTI. Reports dysuria. Tmax 102.9. Reports occasional small cough, nonproductive. Denies chest pain, palpitations or shortness of breath. Maintaining O2 sats of 96% on room air. Reports stuffy nose, minimal sore throat. Suicide precautions maintained, sitter at bedside. Objective - Vital Signs Vital signs: Vital Signs Temp 99.7 F H 06/08/24 07:43 Pulse 84 06/08/24 07:43 Resp 18 06/08/24 07:43 BP 103/67 06/08/24 07:43 Pulse Ox 96 06/08/24 07:43 FiO2 Intake & Output 06/07/24 06/08/24 06/08/24 18:59 06:59 18:59 Intake Total 240 480 118 Balance 240 480 118 Intake: Oral 240 480 118 Other: Voiding Method Toilet Toilet Toilet # Voids 3 3 - Exam GENERAL: Alert and oriented x 3, sitting up in bed, no acute distress. HEENT: sclera anicteric, conjunctiva normal.oropharynx clear without exudates.MMM. LUNGS: Unlabored, equal air entry ,Breath sounds clear to auscultation. HEART: Regular rate and rhythm without murmurs, rubs or gallops.S1S2 Normal. ABDOMEN: Soft, nontender, normoactive bowel sounds. EXTREMITIES: no pitting or edema. No clubbing or cyanosis. NEUROLOGICAL: Cranial nerves II through XII grossly intact SKIN: Warm, Dry, no rashes noted. - Labs CBC & Chem 7: 06/07/24 05:55 06/07/24 05:55 Assessment and Plan Assessment: Overdose, suicidal COVID infection, stable Acute UTI, culture pending, possibly related to urinary retention and placed on Flomax. Recently evaluated by urology on 06/05/2024 recommending further follow- up outpatient regarding potential degree of bladder outflow obstruction- potential urethral dilation. Acute on chronic kidney disease,Stage IIIB, secondary to the above, baseline creatinine 1.3. Bipolar disorder Borderline personality disorder History of polysubstance abuse disorder including prescription drugs; opiods, sedatives, hypnotics, Anxiolytics, alcohol, cannabis COPD, stable Hypothyroidism Ongoing nicotine dependence Gastroesophageal reflux disease Obesity, BMI 31.9 Plan: Continue on current medication regimen ,monitoring and symptomatic treatment. Labs pending. staff attempting to obtain IV access. Pyridium ordered for dysuria, continue oral antibiotics. Patient advised to increase water intake. Urine culture pending. Continue suicide precautions, safety manager-Psych consult in place with further recommendations pending . Patient is stable, to transfer to mental health unit once completing quarantine of 5 days. The impression and plan of care has been dictated as directed. : I performed a history and examination of this patient, discussed the same with the dictator. I agree with the dictator's note ,documented as a scribe. Any additional findings or plans will be noted.
[2024-06-08 13:55] LABS: African American GFR (CKD) 39 (>60 ml/min/1.73 sqM); Anion Gap 6 mmol/L; Blood Urea Nitrogen 21 mg/dL (7-17); Calcium 9.6 mg/dL (8.4-10.2); Carbon Dioxide 29 mmol/L (22-30); Chloride 105 mmol/L (98-107); Glucose 92 mg/dL (74-99); Non-African American GFR(CKD) 34 (>60 ml/min/1.73 sqM); Potassium 4.6 mmol/L (3.5-5.1); Sodium 140 mmol/L (137-145)
[2024-06-08 13:57] LABS: HCT 47.1 % (34.0-46.0); HGB 15.9 gm/dL (11.4-16.0); MCH 31.5 pg (25.0-35.0); MCHC 33.8 g/dL (31.0-37.0); MCV 93.1 fL (80.0-100.0); Mean Platelet Volume 7.5; Platelet Count 179 k/uL (150-450); RBC 5.06 m/uL (3.80-5.40); RDW 12.6 % (11.5-15.5); WBC 5.9 k/uL (3.8-10.6)
--- NOTE | 2024-06-08 16:15 | P.CN ---
Psychiatric Consult - . Consult date: 06/08/24 Consult:: 06/08/24 16:14 IDENTIFYING Data: Josefa Moy is a 64-year-old, , wf, who lives in [place], [place]. She lives in a house with her ex-. C/C "I have improved". HISTORY OF PRESENT ILLNESS: Patient was brought to ED by EMS because of overdose with Versed and Lamictal to kill herself. The patient noted that she was helping her sister move and attending to her , who was in the hospital for ulcers. This resulted in to a lot stress. She felt overwhelmed and got depressed with symptoms of irritability. agitation, anxiety, restlessness, lack of concentration and attention, feeling overwhelmed, lack of sleep. Loss of appetite, increase energy with driven state and out of control. As per patient, she took overdose of pills because she felt hopeless and could not take all the stress and aggravation. On the day of admission, she added that it was foolish and irrational act. She did not feel frustrated or aggravated with her situation anymore. She denied any suicidal or homicidal ideations. Over the weekend, she told the doctor content development manager that she ended up in this situation because of her circumstances. On Thursday, she was transferred to the medical floor due to covid. She was placed on suicide precaution secondary to h/o of overdose; however, the patient did not voice any suicidal thoughts to any of the staff according to the nursing staff. There is no documentation of suicidal ideations or behavior. During this evaluation she denied any suicidal or homicidal thoughts. She reported feeling fine. She stated that she no more having symptoms of depressed such as irritability. agitation, anxiety, restlessness, lack of concentration and attention, feeling overwhelmed, lack of sleep. loss of appetite, increase energy with driven state and being out of control. She sat calmly on her bed and held good directed relaxed conversation. She was chatting with the sitter before talking to me. She appeared in good spirits. As per patient her feels that she is back to her normal self. She is eating and sleeping well. Overall, patient is stable at this to continue out-pt treatment. PAST PSYCHIATRIC HISTORY: The patient noted that she was diagnosed with bipolar disorder at age 27 after t he of her first child. Previous diagnoses: Bipolar disorder, PTSD, alcohol use disorder She has had several psychiatric admissions in the past. She was last hospitalized in 2020. She has not been hospitalized in a psychiatric hospital since then. She goes to [facility]. SUBSTANCE ABUSE HISTORY: The patient noted that she was a heavy alcoholic. She has been sober since 2020. She was addicted to opioid. As per patient, she has been clean since 2020. She also abused Klonopin. She stopped abusing it since 2020. She has used crack off and on. Nicotine: Smokes 2 packs of cigarettes daily. Medical History: COPD, renal disease, and thyroid disorder MENTAL STATUS EVALUATION: Appearance: Alert and attentive. Oriented X3. Pleasant and cooperative. Dressed and groomed adequately. Motor Activity: Normal psychomotor activity. Speech: Normal in tone, quality, and quantity. Mood: I am relaxed and feel good. Affect: Consistent with mood. Perception: Normal. Thought content: No paranoia or other delusional theme noted. No SI or Hi noted. Thought process: Normal. Cognition: Intact. Judgement and Insight: Good. Diagnosis: Bipolar disorder, Stable Plan and Recommendations: Continue current Medications. D/C suicide precautions.
[2024-06-09 13:56] VITALS: BP 103/71; PULSE 93; RESP 17; TEMP 97.9
--- NOTE | 2024-06-09 16:15 | P.PN ---
Progress Note - Text Progress Note Date: 06/09/24 C/C "I am good.". The patient appeared in good spirits. She denied being depressed. The patient denied any suicidal or homicidal thoughts. She reported feeling fine. She stated that she is no more having symptoms of depression such as irritability. agitation, anxiety, restlessness, lack of concentration and attention, feeling overwhelmed, lack of sleep. loss of appetite, increase energy with driven state and being out of control. She sat calmly on her bed and held good directed r elaxed conversation. Overall, patient is stable at this to continue out-pt treatment. The patients indicated that the patient is back to her normal self. He noted that the patient is not having symptoms that put her in the hospital. She has not voiced any suicidal or homicidal ideations. Overall, the patient is stable to be discharged to out-pt. MENTAL STATUS EVALUATION: Appearance: Alert and attentive. Oriented X3. Pleasant and cooperative. Dressed and groomed adequately. Motor Activity: Normal psychomotor activity. Speech: Normal in tone, quality, and quantity. Mood: I am relaxed and feel good. Affect: Consistent with mood. Perception: Normal. Thought content: No paranoia or other delusional theme noted. No SI or Hi noted. Thought process: Normal. Cognition: Intact. Judgement and Insight: Good. Diagnosis: Bipolar disorder, Stable Plan and Recommendations: Continue current Medications. From psychiatric point of view, the patient is stable to be discharged. Please make an out-pt appointment with [facility] for follow- up within 7 days of discharge.
--- NOTE | 2024-06-10 17:23 | P.DS ---
Providers Date of admission: 06/06/24 20:42 Expected date of discharge: 06/09/24 Attending physician: Ray Segovia MD Consults: 06/06/24 22:31 Consult Physician Routine Consulting Provider: Zbigniew Gtz Consult Reason/Comments: continued psych care Do you want consulting provider notified?: Yes, Notify in am Placement Type Exists?: Yes Primary care physician: Ray Segovia MD Hospital Course: Overdose, suicidal COVID infection, stable Acute UTI, culture pending, possibly related to urinary retention and placed on Flomax. Recently evaluated by urology on 06/05/2024 recommending further follow- up outpatient regarding potential degree of bladder outflow obstruction- potential urethral dilation. Acute on chronic kidney disease,Stage IIIB, secondary to the above, baseline creatinine 1.3. Bipolar disorder Borderline personality disorder History of polysubstance abuse disorder including prescription drugs; opiods, sedatives, hypnotics, Anxiolytics, alcohol, cannabis COPD, stable Hypothyroidism Ongoing nicotine dependence Gastroesophageal reflux disease Obesity, BMI 31.9 Hospital course:This is a 64-year-old female past medical history significant for COPD, chronic kidney disease, hypothyroidism, chronic bilateral leg pain/back pain, bipolar disorder, ongoing nicotine dependence, hypertension, prescription drug abuse initially admitted to inpatient mental health unit secondary to suicidal with overdose of Versed, and Lamictal. Spiked fevers, Tmax 101.5. ,occasional nonproductive cough, tested positive for COVID and transferred to medical floor. Maintaining O2 sats in the high 90s on room air, nonproductive cough. Suicide precautions maintained with sitter at bedside. UA reflecting UTI, urine culture ordered, ceftriaxone initiated. Denies urinary frequency or urgency. Denies suprapubic or flank pain. Creatinine 1.6, baseline 1.3. complains of headache. Denies chest pain, palpitations or shortness of breath. 06/08/2024 no IV access, maintained on Ceftin for acute UTI. Reports dysuria. Tmax 102.9. Reports occasional small cough, nonproductive. Denies chest pain, palpitations or shortness of breath. Maintaining O2 sats of 96% on room air. Reports stuffy nose, minimal sore throat. Suicide precautions maintained, sitter at bedside. Labs pending. staff attempting to obtain IV access. Pyridium ordered for dysuria, continue oral antibiotics. Patient advised to increase water intake. Urine culture pending. Continue suicide precautions, product safety lead-Psych consult in place with further recommendations pending . Patient is stable, to transfer to mental health unit once completing quarantine of 5 days. Suicide precautions DC'd as per psychiatry. Patient has been cleared for discharge home per psychiatry with recommendations of following up with [facility] outpatient within 1 week. Significant clinical improvement. Denies chest pain, palpitations or shortness of breath. Denies chills sweats . Maintaining O2 sats of 98% on room air. Tmax 100.6. Breathing unlabored, equal air entry, clear to auscultation, no wheezes or rhonchi. Patient has been instructed to complete her 5 days of quarantine secondary to her COVID infection. Patient will be discharged home today in a stable condition with guarded prognosis. The impression and plan of care has been dictated as directed. : I performed a history and examination of this patient, discussed the same with the dictator. I agree with the dictator's note ,documented as a scribe. Any additional findings or plans will be noted. Patient Condition at Discharge: Stable Plan - Discharge Summary New Discharge Prescriptions: New Tamsulosin [Flomax] 0.4 mg PO PC-BRKFST #30 cap Magnesium Oxide [Mag-Ox] 400 mg PO BID tab Cefdinir [Omnicef] 300 mg PO HS 3 Days #6 cap Zinc Sulfate [Orazinc] 220 mg PO DAILY #0 cap Albuterol Inhaler [Ventolin Hfa Inhaler] 2 puff INHALATION QID PRN #8 gm PRN Reason: Shortness Of Breath Continue Ipratropium-Albuterol Nebulize [Duoneb 0.5 mg-3 mg/3 ml Soln] 3 ml INHALATION RT-TID Ziprasidone [Geodon] 60 mg PO HS Montelukast [Singulair] 10 mg PO HS Atorvastatin Calcium 10 mg PO HS Famotidine [Pepcid] 20 mg PO BID cycloSPORINE 0.05% OPHTH SOLN [Restasis] 1 applic BOTH EYES Q12H Fluticasone/Umeclidin/Vilanter [Trelegy Ellipta 200-62.5-25] 1 puff INHALATION RT-DAILY Mirtazapine 45 mg PO HS oxyCODONE-APAP 5-325MG [Percocet 5-325 mg] 1 tab PO TID Butalb/APAP/Caff 50-325-40Mg [Fioricet 50-325-40] 1 tab PO BID PRN PRN Reason: Migraine Headache Ziprasidone [Geodon] 40 mg PO DAILY Pantoprazole Sodium [Protonix] 40 mg PO AC-BID Levothyroxine Sodium [Synthroid] 50 mcg PO DAILY Ergocalciferol (Vitamin D2) [Drisdol (50,000 Iu)] 1,250 mcg PO Q7D lamoTRIgine [LaMICtal] 100 mg PO BID hydrOXYzine pamoate [Vistaril] 50 mg PO HS PRN PRN Reason: SLEEP/ANXIETY Linaclotide [Linzess] 145 mcg PO DAILY Multivitamins, Thera [Multivitamin (formulary)] 1 tab PO DAILY Pregabalin [Lyrica] 150 mg PO TID Promethazine [Phenergan] 25 mg PO Q4H PRN PRN Reason: Nausea Fluticasone Nasal [place] [Flonase Nasal [place]] 1 spr EA NOSTRIL DAILY Changed cloNIDine HCL 0.1 mg PO TID #0 Discontinued lisinopriL [Zestril] 10 mg PO DAILY Discharge Medication List Ipratropium-Albuterol Nebulize [Duoneb 0.5 mg-3 mg/3 ml Soln] 3 ml INHALATION RT-TID 11/04/21 [History] Ziprasidone [Geodon] 40 mg PO DAILY 11/04/21 [History] Pantoprazole Sodium [Protonix] 40 mg PO AC-BID 11/12/21 [History] Levothyroxine Sodium [Synthroid] 50 mcg PO DAILY 02/28/22 [History] Montelukast [Singulair] 10 mg PO HS 02/24/23 [History] Ziprasidone [Geodon] 60 mg PO HS 02/24/23 [History] Atorvastatin Calcium 10 mg PO HS 07/03/23 [History] Ergocalciferol (Vitamin D2) [Drisdol (50,000 Iu)] 1,250 mcg PO Q7D 07/03/23 [History] Famotidine [Pepcid] 20 mg PO BID 07/03/23 [History] lamoTRIgine [LaMICtal] 100 mg PO BID 07/03/23 [History] Fluticasone/Umeclidin/Vilanter [Trelegy Ellipta 200-62.5-25] 1 puff INHALATION RT-DAILY 04/06/24 [History] Linaclotide [Linzess] 145 mcg PO DAILY 04/06/24 [History] Mirtazapine 45 mg PO HS 04/06/24 [History] Multivitamins, Thera [Multivitamin (formulary)] 1 tab PO DAILY 04/06/24 [History] Pregabalin [Lyrica] 150 mg PO TID 04/06/24 [History] Promethazine [Phenergan] 25 mg PO Q4H PRN 04/06/24 [History] cycloSPORINE 0.05% OPHTH SOLN [Restasis] 1 applic BOTH EYES Q12H 04/06/24 [History] hydrOXYzine pamoate [Vistaril] 50 mg PO HS PRN 04/06/24 [History] oxyCODONE-APAP 5-325MG [Percocet 5-325 mg] 1 tab PO TID 04/06/24 [History] Butalb/APAP/Caff 50-325-40Mg [Fioricet 50-325-40] 1 tab PO BID PRN 06/02/24 [History] Fluticasone Nasal [place] [Flonase Nasal [place]] 1 spr EA NOSTRIL DAILY 06/02/24 [History] Albuterol Inhaler [Ventolin Hfa Inhaler] 2 puff INHALATION QID PRN #8 gm 0 06/09/24 [Rx] Cefdinir [Omnicef] 300 mg PO HS 3 Days #6 cap 06/09/24 [Rx] Magnesium Oxide [Mag-Ox] 400 mg PO BID tab 06/09/24 [Rx] Tamsulosin [Flomax] 0.4 mg PO PC-BRKFST #30 cap 06/09/24 [Rx] Zinc Sulfate [Orazinc] 220 mg PO DAILY #0 cap 06/09/24 [Rx] cloNIDine HCL 0.1 mg PO TID #0 06/09/24 [Rx] Follow up Appointment(s)/Referral(s): [facility], Psychiatry [Other] - 1 Week Ray Segovia MD [Primary Care Provider] - 1 Week Ross Temple MD [STAFF PHYSICIAN] - 2 Weeks (As previously advised) Ambulatory/Diagnostic Orders: Complete Blood Count w/diff [LAB.AMB] Time Frame: 3 Days, Location: None Selected Discharge/Stand Alone Forms: Who Do I Call?, Community Resources, Outpatient Counseling Discharge Disposition: HOME SELF-CARE
== END 2024-06-09 16:49 | disposition home or self-care (01) ==
LOC: 6NMEDSUR 20:42 → INTOOBSV 20:42 → UNDODISIN 06-09 16:49
PROVIDERS: ADMIT Family Medicine; ATTEND Family Medicine
DX: T42.4X2A Poisoning by benzodiazepines, intentional self-harm, initial encounter (principal); T42.6X2A Poisoning by other antiepileptic and sedative-hypnotic drugs, intentional self-harm, initial encounter; U07.1 COVID-19; N39.0 Urinary tract infection, site not specified; E03.9 Hypothyroidism, unspecified; E66.9 Obesity, unspecified; F17.210 Nicotine dependence, cigarettes, uncomplicated; F31.9 Bipolar disorder, unspecified; F43.10 Post-traumatic stress disorder, unspecified; F60.3 Borderline personality disorder; F19.11 Other psychoactive substance abuse, in remission; G89.29 Other chronic pain; I12.9 Hypertensive chronic kidney disease with stage 1 through stage 4 chronic kidney disease, or unspecified chronic kidney disease; J44.9 Chronic obstructive pulmonary disease, unspecified; K21.9 Gastro-esophageal reflux disease without esophagitis; M54.9 Dorsalgia, unspecified; M79.604 Pain in right leg; M79.605 Pain in left leg; N18.9 Chronic kidney disease, unspecified; Z68.31 Body mass index [BMI] 31.0-31.9, adult; Z79.890 Hormone replacement therapy; Z79.899 Other long term (current) drug therapy; Z88.0 Allergy status to penicillin; Z79.51 Long term (current) use of inhaled steroids
CPT/HCPCS: 80048; 81001; 85025; 85027; 87077; 87086; 87186

== ENCOUNTER → 2024-07-02 | Outpatient (CLI) | payer MEDICARE, OTHER ==
[2024-07-03 07:08] LABS: Cryptosporidium Antigen Negative (Negative)
== END | disposition home or self-care (01) ==
LOC: LABWHC1 09:51
PROVIDERS: ATTEND Family Medicine
DX: R19.7 Diarrhea, unspecified (principal)
CPT/HCPCS: 87045; 87046; 87324; 87328; 87329

== ENCOUNTER 2024-07-03 09:13 | Observation (INO) | payer MEDICARE, OTHER ==
[2024-07-03 10:24] LABS: Basophils % (A) 0 %; Eosinophils % (A) 0 %; HCT 47.8 % (34.0-46.0); HGB 15.9 gm/dL (11.4-16.0); Lymphocytes # (A) 1.1 k/uL (1.0-4.8); Lymphocytes % (A) 14 %; MCH 30.3 pg (25.0-35.0); MCHC 33.3 g/dL (31.0-37.0); Monocytes # (A) 0.5 k/uL (0-1.0); Monocytes % (A) 6 %; Neutrophils # (A) 6.5 k/uL (1.3-7.7); Neutrophils % (A) 79 %; Platelet Count 252 k/uL (150-450); RBC 5.26 m/uL (3.80-5.40); RDW 13.3 % (11.5-15.5); WBC 8.2 k/uL (3.8-10.6)
[2024-07-03] MEDS: ONDANSETRON 4 MG/2 ML VIAL IVP STA (10:25)
[2024-07-03] MEDS: PANTOPRAZOLE 40 MG/10 ML VIAL IVP STA (10:26)
[2024-07-03] MEDS: MORPHINE SULFATE 4 MG/ML SYRINGE IVP STA (10:28)
[2024-07-03 10:33] LABS: Partial Thromboplastin Time 24.9 sec (22.0-30.0); Prothrombin Time 11.1 sec (10.0-12.5)
[2024-07-03 10:39] LABS: ALT 25 U/L (4-34); AST 33 U/L (14-36); African American GFR (CKD) 52 (>60 ml/min/1.73 sqM); Albumin 4.4 g/dL (3.5-5.0); Alkaline Phosphatase 150 U/L (38-126); Amylase 80 U/L (30-110); Anion Gap 11 mmol/L; Blood Urea Nitrogen 11 mg/dL (7-17); Calcium 10.2 mg/dL (8.4-10.2); Carbon Dioxide 16 mmol/L (22-30); Chloride 113 mmol/L (98-107); Glucose 107 mg/dL (74-99); Lipase 136 U/L (23-300); Non-African American GFR(CKD) 45 (>60 ml/min/1.73 sqM); Potassium 3.8 mmol/L (3.5-5.1); Sodium 140 mmol/L (137-145); Total Bilirubin 0.8 mg/dL (0.2-1.3); Total Protein 6.7 g/dL (6.3-8.2)
[2024-07-03] MEDS: SODIUM CHLORIDE 0.9% 1,000 ML IV STA (10:47)
--- NOTE | 2024-07-03 11:20 | CT ---
EXAMINATION TYPE: CT abdomen pelvis w con DATE OF EXAM: 07/03/2024 COMPARISON: 10/26/2021 HISTORY: Abdominal pain, vomiting and constipation. TECHNIQUE: Helical acquisition of images was performed from the lung bases through the uneventful ad ministration of nonionic IV contrast. FINDINGS: The lung bases are clear. There are surgical absence of the gallbladder. There is no biliary ductal dilatation. There is no focal mass or organomegaly involving the liver, pancreas, spleen or adrenal glands. There is no solid renal mass or hydronephrosis and there is homogeneous contrast enhancement of the r enal parenchyma. There are multiple stable bilateral renal cysts ranging from a few millimeters to 2. 7 cm and the right kidney. There are no solid renal masses. The caliber the abdominal aorta is normal is no retroperitoneal adenopathy or hemorrhage. The bowel loops are normal in caliber and there is no evidence of dilatation or obstruction. No infla mmatory changes are identified in the bowel wall or mesentery. There is no free intraperitoneal air or fluid. No pelvic mass, free fluid, abscess or adenopathy. There are surgical absence of the uterus. The osseous structures and soft tissues are intact. IMPRESSION: 1. Surgical absence of the gallbladder and uterus. 2. Stable multiple bilateral renal cysts. 3. No acute changes within the abdomen or pelvis. [facility], , 07/03/2024 11:18 AM
[2024-07-03] MEDS: LORazepam 2 MG/ML INJ IV STA (12:36)
[2024-07-03] MEDS ORDERED: NALOXONE 0.4 MG/ML 1 ML VIAL IV PRN (12:37)
[2024-07-03] MEDS ORDERED: MORPHINE SULFATE 4 MG/ML SYRINGE IV PRN (12:37)
--- NOTE | 2024-07-03 12:39 | ED ---
General Adult HPI - General Chief complaint: Abdominal Pain Stated complaint: Heart palpitations, abd pain Time Seen by Provider: 07/03/24 10:08 Source: patient, RN notes reviewed, old records reviewed Mode of arrival: ambulatory Limitations: no limitations - History of Present Illness Initial comments: Patient is a 64-year-old female presents emergency department complaining of abdominal pain, nausea vomiting over the last day. Also feels super anxious, complains of some heart racing. No focal abdominal pain. Has a history of COPD. Also history of anxiety. History of chronic pain and has been without her oxycodone. Questionable if this is from withdrawal symptoms or other cause. States she feels extremely anxious regarding this. Denies chest pain. Presents for further evaluation at this time. No fevers or chills. No urinary complaints. No constipation. Patient is having diarrhea as well is nonbilious nonbloody y emesis with nausea. - Related Data Home Medications Medication Instructions Recorded Confirmed Ipratropium-Albuterol Nebulize 3 ml INHALATION RT-TID 11/04/21 06/07/24 [Duoneb 0.5 mg-3 mg/3 ml Soln] Ziprasidone [Geodon] 40 mg PO DAILY 11/04/21 06/07/24 Pantoprazole Sodium [Protonix] 40 mg PO AC-BID 11/12/21 06/07/24 Levothyroxine Sodium [Synthroid] 50 mcg PO DAILY 02/28/22 06/07/24 Montelukast [Singulair] 10 mg PO HS 02/24/23 06/07/24 Ziprasidone [Geodon] 60 mg PO HS 02/24/23 06/07/24 Atorvastatin Calcium 10 mg PO HS 07/03/23 06/07/24 Ergocalciferol (Vitamin D2) 1,250 mcg PO Q7D 07/03/23 06/07/24 [Drisdol (50,000 Iu)] Famotidine [Pepcid] 20 mg PO BID 07/03/23 06/07/24 lamoTRIgine [LaMICtal] 100 mg PO BID 07/03/23 06/07/24 Fluticasone/Umeclidin/Vilanter 1 puff INHALATION RT-DAILY 04/06/24 06/07/24 [Trelegy Ellipta 200-62.5-25] Linaclotide [Linzess] 145 mcg PO DAILY 04/06/24 06/07/24 Mirtazapine 45 mg PO HS 04/06/24 06/07/24 Multivitamins, Thera [Multivitamin 1 tab PO DAILY 04/06/24 06/07/24 (formulary)] Pregabalin [Lyrica] 150 mg PO TID 04/06/24 06/07/24 Promethazine [Phenergan] 25 mg PO Q4H PRN 04/06/24 06/07/24 cycloSPORINE 0.05% OPHTH SOLN 1 applic BOTH EYES Q12H 04/06/24 06/07/24 [Restasis] hydrOXYzine pamoate [Vistaril] 50 mg PO HS PRN 04/06/24 06/07/24 oxyCODONE-APAP 5-325MG [Percocet 1 tab PO TID 04/06/24 06/07/24 5-325 mg] Butalb/APAP/Caff 50-325-40Mg 1 tab PO BID PRN 06/02/24 06/07/24 [Fioricet 50-325-40] Fluticasone Nasal [place] [Flonase 1 spr EA NOSTRIL DAILY 06/02/24 06/07/24 Nasal [place]] Previous Rx's Medication Instructions Recorded Albuterol Inhaler [Ventolin Hfa 2 puff INHALATION QID PRN #8 gm 06/09/24 Inhaler] Cefdinir [Omnicef] 300 mg PO HS 3 Days #6 cap 06/09/24 Magnesium Oxide [Mag-Ox] 400 mg PO BID tab 06/09/24 Tamsulosin [Flomax] 0.4 mg PO PC-BRKFST #30 cap 06/09/24 Zinc Sulfate [Orazinc] 220 mg PO DAILY #0 cap 06/09/24 cloNIDine HCL 0.1 mg PO TID #0 06/09/24 Allergies Allergy/AdvReac Type Severity Reaction Status Date / Time amoxicillin Allergy Anaphylaxis Verified 07/03/24 09:20 Review of Systems ROS Statement: Those systems with pertinent positive or pertinent negative responses have been documented in the HPI. Review of Systems: CONST: Denies fever EYES: Denies blurry vision ENT: Denies nasal congestion C/V: Denies Chest pain RESP: Denies shortness of breath GI: Endorses abdominal pain : Denies dysuria SKIN: Denies rash. MSK: Denies joint pain. NEURO: Denies headache ROS Other: All systems not noted in ROS Statement are negative. Past Medical History Past Medical History: COPD, GERD/Reflux, Renal Disease, Thyroid Disorder Additional Past Medical History / Comment(s): cysts on (R) kidney. PARATHYROID REMOVED, NAUSEA, CONSTIPATION, monoclonal gammopathy History of Any Multi-Drug Resistant Organisms: None Reported Past Surgical History: Cholecystectomy, Hysterectomy Additional Past Surgical History / Comment(s): parathyroidectomy, Cataract both eyes Past Anesthesia/Blood Transfusion Reactions: No Reported Reaction Additional Past Anesthesia/Blood Transfusion Reaction / Comment(s): "Have woken up during surgery before" COLONOSCOPY AND EGD " Past Psychological History: Anxiety, Bipolar, Depression Smoking Status: Current every day smoker Past Alcohol Use History: None Reported Past Drug Use History: None Reported - Past Family History Father Family Medical History: Cancer, Coronary Artery Disease (CAD) Additional Family Medical History / Comment(s): Father is of blood cancer. Mother Family Medical History: Coronary Artery Disease (CAD) Additional Family Medical History / Comment(s): KIDNEY DISEASE Son(s) Family Medical History: Cancer Additional Family Medical History / Comment(s): Brain tumor - . Sister(s) Family Medical History: Cancer Additional Family Medical History / Comment(s): Breast cancer. General Exam - General Exam Comments Initial Comments: General: There is a mild to moderate distress secondary to pain and anxiety. HEAD: Normal with no signs of head trauma. EYES: PERRLA, EOMI, conjunctiva normal, no discharge. ENT: Hearing grossly intact, normal oropharynx. RESPIRATORY: Clear breath sounds bilaterally. No wheezes, rales, or rhonchi. C/V: Regular rate and rhythm. S1 and S2 auscultated, no edema, peripheral pulses 2+ and intact throughout ABD: Abdomen is soft, nondistended. Tender to palpation diffusely with no focal area. No guarding or rebound tenderness. No peritoneal signs. EXT: Normal range of motion, no obvious deformity SKIN: No rashes or lesions observed on exposed skin. NEURO: Alert and oriented x 4. Limitations: no limitations Course Vital Signs 07/03/24 07/03/24 07/03/24 09:17 11:30 12:35 Temperature 98.0 F Pulse Rate 131 H 76 89 Respiratory 18 16 18 Rate Blood Pressure 108/74 129/90 121/93 O2 Sat by Pulse 97 100 100 Oximetry Medical Decision Making - Medical Decision Making Was pt. sent in by a medical professional or institution (AUDI Lombardi, SCHOOL TRANSPORTATION SUPERVISOR, urgent care, hospital, or fci...) When possible be specific @ -No Did you speak to anyone other than the patient for history (EMS, parent, family, police, friend...)? What history was obtained from this source @ -No Did you review nursing and triage notes (agree or disagree)? Why? @ -I reviewed and agree with nursing and triage notes Were old charts reviewed (outside hosp., previous admission, EMS record, old EKG, old radiological studies, urgent care reports/EKG's, fci records)? Report findings @ -Old charts reviewed including old medications which includes oxycodone. Differential Diagnosis (chest pain, altered mental status, abdominal pain women, abdominal pain men, vaginal bleeding, weakness, fever, dyspnea, syncope, headache, dizziness, GI bleed, back pain, seizure, CVA, palpatations, mental health, musculoskeletal)? @ -Differential Abdominal Pain Women: Appendicitis, Cholecystitis, diverticulosis, ischemic bowel, pancreatitis, hepatitis, UTI, gastroenteritis, AAA, incarcerated hernia, bowel obstruction, constipation, inflammatory bowel, hepatitis, peptic ulcer disease, splenic infarction, perforated viscus, vulvitis, ovarian torsion, PID, kidney stone, placenta abruption, this is not meant to be an all-inclusive list EKG interpreted by me (3pts min.). @ -As above X-rays interpreted by me (1pt min.). @ -None done CT interpreted by me (1pt min.). @ -CT abdomen pelvis negative for any obvious acute intra-abdominal process to explain patient's current symptoms. U/S interpreted by me (1pt. min.). @ -None done What testing was considered but not performed or refused? (CT, X-rays, U/S, labs)? Why? @ -None What meds were considered but not given or refused? Why? @ -None Did you discuss the management of the patient with other professionals (professionals i.e. AUDI Lombardi, SCHOOL TRANSPORTATION SUPERVISOR, lab, RT, psych nurse, director of social work, mammalogy teacher, teacher, jailer/training officer, high risk case manager)? Give summary @ -Discussed with Dr. Zamora who accepted the admission. Was smoking cessation discussed for >3mins.? @ -No Was critical care preformed (if so, how long)? @ -No Were there social determinants of health that impacted care today? How? (Homelessness, low income, unemployed, alcoholism, drug addiction, transportation, low edu. Level, literacy, decrease access to med. care, assisted, rehab)? @ -No Was there de-escalation of care discussed even if they declined (Discuss DNR or withdrawal of care, Hospice)? DNR status @ -No What co-morbidities impacted this encounter? (DM, HTN, Smoking, COPD, CAD, Cancer, CVA, ARF, Chemo, Hep., AIDS, mental health diagnosis, sleep apnea, morbid obesity)? @ -None Was patient admitted / discharged? Hospital course, mention meds given and route, prescriptions, significant lab abnormalities, going to OR and other pertinent info. @ -Based on patient's presentation and physical exam, presents emergency department complaining of abdominal pain. Could be secondary to opiate withdrawal but patient is having diffuse pain with nausea vomiting diarrhea. We will obtain screening EKG as well as provide the patient with symptomatic relief with IV medications. She was in agreement this plan. Vitals remarkable for sinus tachycardia. Laboratory studies remarkable for normal lactic acid. No leukocytosis. Slight elevated creatinine which is chronic for the patient. No other obvious findings on labs. Imaging unremarkable. EKG showed sinus tachycardia but no signs of acute ischemia. On reevaluation, patient still having some pain and anxiety. I discussed with the patient. I would like to admit the patient for symptomatic relief at this time. She was in agreement this plan. I spoke with Dr. Zamora who accepted the admission. Undiagnosed new problem with uncertain prognosis? @ -No Drug Therapy requiring intensive monitoring for toxicity (Heparin, Nitro, Insulin, Cardizem)? @ -No Were any procedures done? @ -No Diagnosis/symptom? @ -Intractable abdominal pain, nausea, vomiting, possibly secondary to opiate withdrawal. Acute, or Chronic, or Acute on Chronic? @ -Acute Uncomplicated (without systemic symptoms) or Complicated (systemic symptoms)? @ -Complicated Side effects of treatment? @ -No Exacerbation, Progression, or Severe Exacerbation? @ -No Poses a threat to life or bodily function? How? (Chest pain, [place], [place], pneumonia, PE, COPD, DKA, ARF, appy, cholecystitis, CVA, Diverticulitis, Homicidal, Suicidal, threat to staff... and all critical care pts) @ -Potentially, yes - Lab Data Result diagrams: 07/03/24 10:17 07/03/24 10:17 Lab Results 07/03/24 07/03/24 07/03/24 Range/Units 10:17 10:17 10:17 WBC 8.2 (3.8-10.6) k/uL RBC 5.26 (3.80-5.40) m/uL Hgb 15.9 (11.4-16.0) gm/dL Hct 47.8 H (34.0-46.0) % MCV 91.0 (80.0-100.0) fL MCH 30.3 (25.0-35.0) pg MCHC 33.3 (31.0-37.0) g/dL RDW 13.3 (11.5-15.5) % Plt Count 252 (150-450) k/uL MPV 7.0 Neutrophils % 79 % Lymphocytes % 14 % Monocytes % 6 % Eosinophils % 0 % Basophils % 0 % Neutrophils # 6.5 (1.3-7.7) k/uL Lymphocytes # 1.1 (1.0-4.8) k/uL Monocytes # 0.5 (0-1.0) k/uL Eosinophils # 0.0 (0-0.7) k/uL Basophils # 0.0 (0-0.2) k/uL PT 11.1 (10.0-12.5) sec INR 1.0 (<1.2) APTT 24.9 (22.0-30.0) sec Sodium 140 (137-145) mmol/L Potassium 3.8 (3.5-5.1) mmol/L Chloride 113 H (98-107) mmol/L Carbon Dioxide 16 L (22-30) mmol/L Anion Gap 11 mmol/L BUN 11 (7-17) mg/dL Creatinine 1.28 H (0.52-1.04) mg/dL Est GFR (CKD-EPI)AfAm 52 (>60 ml/min/1.73 sqM) Est GFR (CKD-EPI)NonAf 45 (>60 ml/min/1.73 sqM) Glucose 107 H (74-99) mg/dL Plasma Lactic Acid Jorge (0.7-2.0) mmol/L Calcium 10.2 (8.4-10.2) mg/dL Total Bilirubin 0.8 (0.2-1.3) mg/dL AST 33 (14-36) U/L ALT 25 (4-34) U/L Alkaline Phosphatase 150 H (38-126) U/L Total Protein 6.7 (6.3-8.2) g/dL Albumin 4.4 (3.5-5.0) g/dL Amylase 80 (30-110) U/L Lipase 136 (23-300) U/L 07/03/24 Range/Units 10:17 WBC (3.8-10.6) k/uL RBC (3.80-5.40) m/uL Hgb (11.4-16.0) gm/dL Hct (34.0-46.0) % MCV (80.0-100.0) fL MCH (25.0-35.0) pg MCHC (31.0-37.0) g/dL RDW (11.5-15.5) % Plt Count (150-450) k/uL MPV Neutrophils % % Lymphocytes % % Monocytes % % Eosinophils % % Basophils % % Neutrophils # (1.3-7.7) k/uL Lymphocytes # (1.0-4.8) k/uL Monocytes # (0-1.0) k/uL Eosinophils # (0-0.7) k/uL Basophils # (0-0.2) k/uL PT (10.0-12.5) sec INR (<1.2) APTT (22.0-30.0) sec Sodium (137-145) mmol/L Potassium (3.5-5.1) mmol/L Chloride (98-107) mmol/L Carbon Dioxide (22-30) mmol/L Anion Gap mmol/L BUN (7-17) mg/dL Creatinine (0.52-1.04) mg/dL Est GFR (CKD-EPI)AfAm (>60 ml/min/1.73 sqM) Est GFR (CKD-EPI)NonAf (>60 ml/min/1.73 sqM) Glucose (74-99) mg/dL Plasma Lactic Acid Jorge 1.3 (0.7-2.0) mmol/L Calcium (8.4-10.2) mg/dL Total Bilirubin (0.2-1.3) mg/dL AST (14-36) U/L ALT (4-34) U/L Alkaline Phosphatase (38-126) U/L Total Protein (6.3-8.2) g/dL Albumin (3.5-5.0) g/dL Amylase (30-110) U/L Lipase (23-300) U/L - EKG Data -: EKG Interpreted by Me EKG Comments: 12-lead Electrocardiogram Interpretation Note EKG was reviewed and interpreted by myself. 12-lead ECG performed at 0945 is interpreted by me as revealing tachycardia at a rate of 116 beats per minute. Indeterminate axis. MN interval is 168 ms, QRS duration is 101 ms, QTc is 422 ms.. There were no ST or T wave abnormalities to suggest myocardial ischemia or injury. R wave progression across the precordium was delayed. By my interpretation this EKG is non-diagnostic for acute ischemia. Disposition Clinical Impression: Intractable abdominal pain, Nausea and vomiting, Opiate withdrawal Disposition: ADMITTED IP TO THIS HOSP Condition: Stable Time of Disposition: 12:25
[2024-07-03] MEDS ORDERED: ALBUTEROL NEBULIZED 2.5 MG/3 ML INHALATION PRN (13:49)
--- NOTE | 2024-07-03 14:31 | P.HPIM ---
History of Present Illness This is a pleasant 64 years old female with past medical history of multiple medical problems including depression/bipolar 1 months ago she had attack of bipolar associated with suicidal ideation, she says she was in 3 was in this facility after that she developed COVID infection upon discharge, seen, since then she has been having diarrhea which has been going on but last night she has been having a rough night and she could not sleep because she has been having vomiting and diarrhea, she vomited about 3 times and had 4 bouts of loose bowel movement since yesterday and there was no blood. This is associated with severe headache related to her migraine Also she has been complaining from abdominal pain of 4 days duration, it was 5/10 in severity, periumbilical nonspecific no precipitating or relieving factors however on exam abdomen looks soft She denies urinary complaints No weakness numbness. She walks fine. She smokes 1 pack/day and she was counseled to quit she agrees but she declines nicotine patch. No alcohol or illicit drugs She is afebrile and blood pressure stable CBC, BMP and liver enzymes unremarkable She has chronically elevated creatinine 1.2 with baseline 1.0-1.4 INR is unremarkable EKG showing sinus tachycardia at 116 CT of the abdomen pelvis is negative for acute process, bilateral renal cysts which are stable. Absent gallbladder Review of Systems Review of systems CONSTITUTIONAL: No fever, no malaise, no fatigue. HEENT: No recent visual problems or hearing problems. Denied any sore throat. CARDIOVASCULAR: No orthopnea, PND, no palpitations, no syncope. PULMONARY: No shortness of breath, no cough, no hemoptysis. GASTROINTESTINAL: As above. NEUROLOGICAL: No headaches, no weakness, no numbness. HEMATOLOGICAL: Denies any bleeding or petechiae. GENITOURINARY: Denies any burning micturition, frequency, or urgency. MUSCULOSKELETAL/RHEUMATOLOGICAL: Denies any joint pain, swelling, or any muscle pain. ENDOCRINE: Denies any polyuria or polydipsia. Past Medical History Past Medical History: COPD, GERD/Reflux, Renal Disease, Thyroid Disorder Additional Past Medical History / Comment(s): cysts on (R) kidney. PARATHYROID REMOVED, NAUSEA, CONSTIPATION, monoclonal gammopathy History of Any Multi-Drug Resistant Organisms: None Reported Past Surgical History: Cholecystectomy, Hysterectomy Additional Past Surgical History / Comment(s): parathyroidectomy, Cataract both eyes Past Anesthesia/Blood Transfusion Reactions: No Reported Reaction Additional Past Anesthesia/Blood Transfusion Reaction / Comment(s): "Have woken up during surgery before" COLONOSCOPY AND EGD " Past Psychological History: Anxiety, Bipolar, Depression Smoking Status: Current every day smoker Past Alcohol Use History: None Reported Past Drug Use History: None Reported - Past Family History Father Family Medical History: Cancer, Coronary Artery Disease (CAD) Additional Family Medical History / Comment(s): Father is of blood cancer. Mother Family Medical History: Coronary Artery Disease (CAD) Additional Family Medical History / Comment(s): KIDNEY DISEASE Son(s) Family Medical History: Cancer Additional Family Medical History / Comment(s): Brain tumor - . Sister(s) Family Medical History: Cancer Additional Family Medical History / Comment(s): Breast cancer. Medications and Allergies Home Medications Medication Instructions Recorded Confirmed Type Ipratropium-Albuterol Nebulize 3 ml INHALATION RT-TID 11/04/21 07/03/24 History [Duoneb 0.5 mg-3 mg/3 ml Soln] Ziprasidone [Geodon] 40 mg PO DAILY 11/04/21 07/03/24 History Pantoprazole Sodium [Protonix] 40 mg PO AC-BID 11/12/21 07/03/24 History Levothyroxine Sodium [Synthroid] 50 mcg PO DAILY 02/28/22 07/03/24 History Montelukast [Singulair] 10 mg PO HS 02/24/23 07/03/24 History Ziprasidone [Ge[place]] 60 mg PO HS 02/24/23 07/03/24 History Atorvastatin Calcium 10 mg PO HS 07/03/23 07/03/24 History Ergocalciferol (Vitamin D2) 1,250 mcg PO Q7D 07/03/23 07/03/24 History [Drisdol (50,000 Iu)] Famotidine [Pepcid] 20 mg PO BID 07/03/23 07/03/24 History lamoTRIgine [LaMICtal] 100 mg PO BID 07/03/23 07/03/24 History Fluticasone/Umeclidin/Vilanter 1 puff INHALATION RT-DAILY 04/06/24 07/03/24 History [Trelegy Ellipta 200-62.5-25] Linaclotide [Linzess] 145 mcg PO DAILY 04/06/24 07/03/24 History Mirtazapine 45 mg PO HS 04/06/24 07/03/24 History Multivitamins, Thera [Multivitamin 1 tab PO DAILY 04/06/24 07/03/24 History (formulary)] Pregabalin [Lyrica] 150 mg PO TID 04/06/24 07/03/24 History Promethazine [Phenergan] 25 mg PO Q4H PRN 04/06/24 07/03/24 History cycloSPORINE 0.05% OPHTH SOLN 1 applic BOTH EYES Q12H 04/06/24 07/03/24 History [Restasis] hydrOXYzine pamoate [Vistaril] 50 mg PO HS PRN 04/06/24 07/03/24 History oxyCODONE-APAP 5-325MG [Percocet 1 tab PO TID 04/06/24 07/03/24 History 5-325 mg] Butalb/APAP/Caff 50-325-40Mg 1 tab PO BID PRN 06/02/24 07/03/24 History [Fioricet 50-325-40] Fluticasone Nasal [place] [Flonase 1 spr EA NOSTRIL DAILY 06/02/24 07/03/24 History Nasal [place]] Magnesium Oxide [Mag-Ox] 400 mg PO BID tab 06/09/24 07/03/24 Rx Tamsulosin [Flomax] 0.4 mg PO PC-BRKFST #30 cap 06/09/24 07/03/24 Rx Zinc Sulfate [Orazinc] 220 mg PO DAILY #0 cap 06/09/24 07/03/24 Rx Albuterol Inhaler [Ventolin Hfa 2 puff INHALATION RT-QID PRN 07/03/24 07/03/24 History Inhaler] Ondansetron Odt [Zofran Odt] 4 mg PO Q8H PRN MDD 12 MG 07/03/24 07/03/24 History cloNIDine HCL 0.2 mg PO TID 07/03/24 07/03/24 History Allergies Allergy/AdvReac Type Severity Reaction Status Date / Time amoxicillin Allergy Anaphylaxis Verified 07/03/24 13:34 Physical Exam Vitals: Vital Signs Temp Pulse Resp BP Pulse Ox 07/03/24 12:35 89 18 121/93 100 07/03/24 11:30 76 16 129/90 100 07/03/24 09:17 98.0 F 131 H 18 108/74 97 Intake and Output 07/02/24 07/03/24 07/03/24 22:59 06:59 14:59 Other: Weight 69.4 kg GENERAL: The patient is alert and oriented x3, not in any acute distress. Well developed, well nourished. HEENT: Pupils are round and equally reacting to light. EOMI. No scleral icterus. No conjunctival pallor. Normocephalic, atraumatic. No pharyngeal erythema. No thyromegaly. CARDIOVASCULAR: S1 and S2 present. No murmurs, rubs, or gallops. PULMONARY: Chest is clear to auscultation, no wheezing , no crackles. ABDOMEN: Soft, nontender, nondistended, normoactive bowel sounds. No palpable organomegaly. MUSCULOSKELETAL: No joint swelling or deformity. EXTREMITIES: No cyanosis, clubbing, or pedal edema. NEUROLOGICAL: Gross neurological examination did not reveal any focal deficits. SKIN: No rashes. no petechiae. Results CBC & Chem 7: 07/03/24 10:17 07/03/24 10:17 Labs: Abnormal Lab Results - Last 24 Hours (Table) 07/03/24 07/03/24 Range/Units 10:17 10:17 Hct 47.8 H (34.0-46.0) % Chloride 113 H (98-107) mmol/L Carbon Dioxide 16 L (22-30) mmol/L Creatinine 1.28 H (0.52-1.04) mg/dL Glucose 107 H (74-99) mg/dL Alkaline Phosphatase 150 H (38-126) U/L Assessment and Plan Assessment: Intractable nausea vomiting with some abdominal pain most likely related to acute gastroenteritis which could be viral. Rule out C. difficile Recent ongoing viral infection with COVID with no pneumonia Nicotine dependence Chronic kidney disease stage III Bipolar with recent admission to psych unit this facility about 1 month ago. Currently patient denies any suicidal or homicidal ideation GERD COPD with no acute exacerbation Hypothyroidism Migraine headache Plan: Continue with gentle hydration Consider GI consult if no improvement Continue with Phenergan as needed for nausea vomiting Resume home medication Further recommendation based on the clinical course Labs and medication were reviewed.. Continue same treatment. Continue with symptomatic treatment. Resume home medication. Monitor labs and vitals. DVT and GI prophylaxis. Further recommendations as per clinical course of the patient DVT prophylaxis: Subcutaneous heparin GI Prophylaxis: Ppi PT/OT: Pending Prognosis is guarded
[2024-07-03] MEDS: SODIUM CHLORIDE 0.9% 1,000 ML IV SCH (14:35)
[2024-07-03] MEDS: ONDANSETRON 4 MG/2 ML VIAL IVP PRN (14:35)
[2024-07-03] MEDS: oxyCODONE-APAP 5-325MG 1 EACH TAB PO SCH (15:25)
[2024-07-03] MEDS: cloNIDine HCL 0.2 MG TAB PO SCH (15:26)
[2024-07-03] MEDS: HEPARIN SODIUM,PORCINE 5,000 UNIT/ML 1 ML VIAL SQ SCH (15:27)
[2024-07-03] MEDS: MIRTAZAPINE 45 MG TABLET PO SCH (20:14)
[2024-07-03] MEDS: MAGNESIUM OXIDE 400 MG TAB PO SCH (20:14)
[2024-07-03] MEDS: lamoTRIgine 100 MG TAB PO SCH (20:14)
[2024-07-03] MEDS: PROMETHAZINE 25 MG TAB PO PRN (20:14)
[2024-07-03] MEDS: ALPRAZolam 0.5 MG TAB PO STA (20:15)
[2024-07-03] MEDS: MONTELUKAST 10 MG TAB PO SCH (20:15)
[2024-07-03] MEDS: ATORVASTATIN 10 MG TAB PO SCH (20:15)
[2024-07-03] MEDS: ZIPRASIDONE 60 MG CAP PO SCH (20:16)
[2024-07-03] MEDS: cycloSPORINE 0.05% OPHTH 0.4 ML DROPERETTE BOTH EYES SCH (20:16)
[2024-07-03 21:15] LABS: Appearance,Urine Clear (Clear); Bilirubin,Urine Negative (Negative); Blood,Urine Negative (Negative); Color,Urine Colorless; Glucose,Urine (UA) Negative (Negative); Ketones,Urine Negative (Negative); Leukocyte Esterase,Urine Negative (Negative); Nitrite,Urine Negative (Negative); Protein,Urine Negative (Negative); Specific Gravity,Urine 1.029 (1.001-1.035); Urobilinogen,Urine <2.0 mg/dL (<2.0)
[2024-07-04] MEDS: BUTALB/APAP/CAFF 50-325-40MG TAB PO PRN (05:39)
[2024-07-04] MEDS: LEVOTHYROXINE 50 MCG TAB PO SCH (05:39)
[2024-07-04 07:36] VITALS: RESP 16
[2024-07-04] MEDS: PANTOPRAZOLE 40 MG/10 ML VIAL IV SCH (08:26)
[2024-07-04] MEDS: ZIPRASIDONE 40 MG CAP PO SCH (08:27)
[2024-07-04] MEDS: NON FORMULARY DRUG (Linaclotide [Linzess] 145 MCG Capsule) PO SCH (08:27)
[2024-07-04 09:05] LABS: HCT 43.1 % (37.2-46.3); MCH 30.7 pg (27.0-32.0); MCHC 34.8 g/dL (32.0-37.0); MCV 88.3 FL (80.0-97.0); Platelet Count 238 X 10*3/uL (140-440); RBC 4.88 X 10*6/uL (4.10-5.20); WBC 7.01 X 10*3/uL (4.50-10.00)
[2024-07-04 09:06] LABS: Basophils # (A) 0.02 X 10*3/uL (0.00-0.10); Basophils % (A) 0.3 %; Eosinophils # (A) 0.01 X 10*3/uL (0.04-0.35); Eosinophils % (A) 0.1 %; Lymphocytes # (A) 1.74 X 10*3/uL (0.90-5.00); Lymphocytes % (A) 24.8 %; Mean Platelet Volume 9.7 FL (9.5-12.2); Monocytes # (A) 0.62 X 10*3/uL (0.20-1.00); Monocytes % (A) 8.8 %; NRBC Per 100 WBC 0 X 10*3/uL (0.00-0.01); Neutrophils # (A) 4.59 X 10*3/uL (1.80-7.70); Neutrophils % (A) 65.6 %
[2024-07-04 09:33] LABS: ALT 20 U/L (8-44); AST 26 U/L (13-35); Albumin/Globulin Ratio 2.22 Ratio (1.60-3.17); Alkaline Phosphatase 153 U/L (41-126); BUN/Creat Ratio 8.45 Ratio (12.00-20.00); Bilirubin, Conjugated <0.20 mg/dL (0.20-0.40); Bilirubin,Unconjugated >0.20 mg/dL (0.20-1.00); Blood Urea Nitrogen 9.3 mg/dL (9.0-27.0); Calcium 9.1 mg/dL (8.7-10.3); Chloride 112 mmol/L (96-109); Globulin 1.8 g/dL (1.6-3.3); Glucose 81 mg/dL (70-110); Potassium 4.4 mmol/L (3.5-5.5); Sodium 142 mmol/L (135-145); Total Bilirubin 0.4 mg/dL (0.3-1.2); Total Protein 5.8 g/dL (6.2-8.2)
[2024-07-04] MEDS: FLUTICASONE NASAL 50MCG/SPRAY 16GM BTL EA NOSTRIL SCH (11:17)
--- NOTE | 2024-07-04 13:40 | P.CN ---
Psychiatric Consult - . Consult date: 07/04/24 Consult:: 07/04/24 12:02 IDENTIFYING DATA: This patient is a 64-year-old female, , lives in [place], [place] her ex- REASON FOR REFERRAL: Psychiatry was consulted for depression, anxiety. HISTORY OF PRESENT ILLNESS: The patient presented to the hospital on 07/03 with a chief complaint of nausea, vomiting and abdominal pain. CT abdomen and pelvis showed no acute processes. Of note, patient was recently admitted to the [facility] unit earlier this month with a diagnosis of PTSD, borderline personality disorder, bipolar disorder was discharged on Geodon 40 mg daily and 60 mg at night, Vistaril 50 mg as needed at bedtime, Lamictal 100 mg twice daily, Remeron 45 mg at bedtime. Patient was seen at bedside but agreed to be interviewed by racebook writer. She reports dealing with depression and anxiety for the past month ever since she was admitted to the behavioral health unit 1 month ago for "mental breakdown". She reports being transferred off the behavioral health floor due to having COVID and was subsequently discharged home with no changes to her medications. She reports following up with [facility] outpatient for both medications and DBT and she recently saw her outpatient provider 1 week prior with no med adjustments. Patient is reporting high anxiety described as panic attacks that occur "on and off "with symptoms such as racing heart, skin crawling, and chest pressure. She reports Ativan being previously effective however was counseled on the risks of benzodiazepine use including dependence, tolerance. Furthermore, risks of combining benzodiazepines with opioids was discussed however patient became tearful and stated she no longer wishes to use opioids. She reports chronic sleep difficulties, low energy, low mood, hopelessness, poor concentration which she states is due to living with her ex- who abuses alcohol. She reports auditory hallucinations that are largely negative in nature. She reports relationship issues with most of her family members with poor social support. At this time patient denies any suicidal or homical ideations, intent or plan. Patient denies any visual hallucinations and denies any paranoia or delusions. Denied any substance use other than nicotine. PAST PSYCHIATRIC HISTORY: Patient has a a history of bipolar 1 disorder, tobacco use disorder, alcohol use disorder, PTSD, anxiety. Patient is currently taking Lamictal 100 mg twice daily, Remeron 45 mg at bedtime, Geodon 40 mg daily and 60 mg at bedtime. Patient reports over 20 past inpatient hospitalizations, most recent earlier this month. Patient follows up with [facility] with provid jo Bonilla whom she sees once per month. PAST MEDICAL HISTORY: Past Medical History: COPD, GERD/Reflux, Renal Disease, Thyroid Disorder Additional Past Medical History / Comment(s): cysts on (R) kidney. PARATHYROID REMOVED, NAUSEA, CONSTIPATION, monoclonal gammopathy History of Any Multi-Drug Resistant Organisms: None Reported Past Surgical History: Cholecystectomy, Hysterectomy Additional Past Surgical History / Comment(s): parathyroidectomy, Cataract both eyes Past Anesthesia/Blood Transfusion Reactions: No Reported Reaction Additional Past Anesthesia/Blood Transfusion Reaction / Comment(s): "Have woken up during surgery before" COLONOSCOPY AND EGD " Past Psychological History: Anxiety, Bipolar, Depression Smoking Status: Current every day smoker Past Alcohol Use History: None Reported Past Drug Use History: None Reported ALLERGIES: as per EMR. CHEMICAL DEPENDENCY HISTORY: as per HPI. SOCIAL HISTORY: Patient is currently living with her ex- and she had 1 son who at the age of 31 due to brain cancer. She reports having some college and is currently on SSD. MENTAL STATUS EXAM: General Appearance: Patient appears older than stated age is alert, pleasant, and cooperative tearful at times. Patient appears to have fair hygiene and grooming wearing hospital gown with fair eye contact. Behavior: Patient is calmly lying in bed without any agitated behavior. Speech: Patient's speech is fluent and nonpressured. Mood/Affect: Patient reports their mood is "anxious", affect is congruent Suicidality/Homicidality: Patient denies having any suicidal or homicidal ideation intent or plan. Perceptions: Patient denies any visual hallucinations but reports auditory hallucinations Though content/process: There is no evidence of any delusional thought content and thought process is linear and goal-directed. Memory and concentration: AOX3, grossly intact for the purposes of this session. Can spell "WORLD" backwards Judgment and insight: Fair IMPRESSIONS: Bipolar 1 disorder Anxiety unspecified Tobacco use disorder History of opioid use disorder History of benzodiazepine use disorder PLAN: -At this time patient DOES NOT meet criteria for inpatient psychiatric admission. -Would recommend the following medication changes/additions: Increase Lamictal to 100 mg daily and 150 mg at bedtime for depression, start Vistaril 50 mg twice daily as needed for anxiety. Continue Geodon 40 mg daily and 60 mg at bedtime -quarry extraction worker to provide patient with outpatient mental health/psychiatry resources for appropriate follow up upon discharge -Dancing Instructor spoke with patient about substance abuse and the harmful effects on medical and mental health, patient verbally understood and agreed. -Communicated plan to patient's nurse -Psychiatry will sign off at this time -Please contact with any questions. 07/04/24 13:28
[2024-07-04 14:18] VITALS: BP 121/73; PULSE 79; TEMP 98.2
[2024-07-04] MEDS: hydrOXYzine pamoate 25 MG CAP PO PRN (14:28)
[2024-07-04] MEDS ORDERED: lamoTRIgine 25 MG TAB PO SCH (21:00)
--- NOTE | 2024-07-05 11:31 | P.DS ---
Providers Date of admission: 07/03/24 12:37 Expected date of discharge: 07/04/24 Attending physician: Ray Segovia MD Consults: 07/04/24 08:42 Consult Physician Routine Consulting Provider: Olivier Martínez Consult Reason/Comments: depression,anxiety Do you want consulting provider notified?: Yes Primary care physician: Ray Segovia MD Hospital Course: Intractable nausea vomiting with some abdominal pain ,possible acute gastroenteritis which could be viral, suspect opioid withdrawal. CT of abdomen pelvis reported no acute process. abdominal pain, nausea, vomiting subsided. Denies diarrhea. Patient reports she ran out of her oxycodone approximately 3 days prior to admission; pain contract with Dr. Mcneill-states she needs to drop off her urine. Recent COVID Nicotine dependence Chronic kidney disease stage III Bipolar with recent admission to psych unit this facility about 1 month ago. Currently patient denies any suicidal or homicidal ideation Anxiety GERD COPD with no acute exacerbation Hypothyroidism Migraine headache, resolved Nicotine dependence History of opioid and benzodiazepine use disorder Significant clinical improvement. Consuming 50% of meals with no nausea vomiting or diarrhea. Denies abdominal pain. Denies chest pain, palpitations or shortness of breath. Denies lightheadedness, dizziness or focal deficits. Positive anxiety with personal stressors reported. Denies suicidal or homicidal ideation. Evaluated by psychiatry with recommendations noted. Patient cleared for discharge. Smoking sensation reinforced. Patient will be discharged home today in a stable condition with guarded prognosis. The impression and plan of care has been dictated as directed. : I performed a history and examination of this patient, discussed the same with the dictator. I agree with the dictator's note ,documented as a scribe. Any additional findings or plans will be noted. Patient Condition at Discharge: Stable Plan - Discharge Summary New Discharge Prescriptions: Continue Ipratropium-Albuterol Nebulize [Duoneb 0.5 mg-3 mg/3 ml Soln] 3 ml INHALATION RT-TID Ziprasidone [Geodon] 60 mg PO HS Montelukast [Singulair] 10 mg PO HS Atorvastatin Calcium 10 mg PO HS Famotidine [Pepcid] 20 mg PO BID cycloSPORINE 0.05% OPHTH SOLN [Restasis] 1 applic BOTH EYES Q12H Fluticasone/Umeclidin/Vilanter [Trelegy Ellipta 200-62.5-25] 1 puff INHALATION RT-DAILY oxyCODONE-APAP 5-325MG [Percocet 5-325 mg] 1 tab PO TID Butalb/APAP/Caff 50-325-40Mg [Fioricet 50-325-40] 1 tab PO BID PRN PRN Reason: Migraine Headache Tamsulosin [Flomax] 0.4 mg PO PC-BRKFST #30 cap Magnesium Oxide [Mag-Ox] 400 mg PO BID tab Albuterol Inhaler [Ventolin Hfa Inhaler] 2 puff INHALATION RT-QID PRN PRN Reason: Shortness Of Breath cloNIDine HCL 0.2 mg PO TID Ziprasidone [Geodon] 40 mg PO DAILY Pantoprazole Sodium [Protonix] 40 mg PO AC-BID Levothyroxine Sodium [Synthroid] 50 mcg PO DAILY Ergocalciferol (Vitamin D2) [Drisdol (50,000 Iu)] 1,250 mcg PO Q7D Linaclotide [Linzess] 145 mcg PO DAILY Multivitamins, Thera [Multivitamin (formulary)] 1 tab PO DAILY Pregabalin [Lyrica] 150 mg PO TID Promethazine [Phenergan] 25 mg PO Q4H PRN PRN Reason: Nausea Fluticasone Nasal [place] [Flonase Nasal [place]] 1 spr EA NOSTRIL DAILY Zinc Sulfate [Orazinc] 220 mg PO DAILY #0 cap Ondansetron Odt [Zofran ODT] 4 mg PO Q8H PRN MDD 12 MG PRN Reason: Nausea Changed lamoTRIgine [LaMICtal] See Rx Instructions .ROUTE .COMPLEX #0 hydrOXYzine pamoate [Vistaril] 50 mg PO BID PRN #0 PRN Reason: SLEEP/ANXIETY Discontinued Mirtazapine 45 mg PO HS Discharge Medication List Ipratropium-Albuterol Nebulize [Duoneb 0.5 mg-3 mg/3 ml Soln] 3 ml INHALATION RT-TID 11/04/21 [History] Ziprasidone [Geodon] 40 mg PO DAILY 11/04/21 [History] Pantoprazole Sodium [Protonix] 40 mg PO AC-BID 11/12/21 [History] Levothyroxine Sodium [Synthroid] 50 mcg PO DAILY 02/28/22 [History] Montelukast [Singulair] 10 mg PO HS 02/24/23 [History] Ziprasidone [Geodon] 60 mg PO HS 02/24/23 [History] Atorvastatin Calcium 10 mg PO HS 07/03/23 [History] Ergocalciferol (Vitamin D2) [Drisdol (50,000 Iu)] 1,250 mcg PO Q7D 07/03/23 [History] Famotidine [Pepcid] 20 mg PO BID 07/03/23 [History] Fluticasone/Umeclidin/Vilanter [Trelegy Ellipta 200-62.5-25] 1 puff INHALATION RT-DAILY 04/06/24 [History] Linaclotide [Linzess] 145 mcg PO DAILY 04/06/24 [History] Multivitamins, Thera [Multivitamin (formulary)] 1 tab PO DAILY 04/06/24 [History] Pregabalin [Lyrica] 150 mg PO TID 04/06/24 [History] Promethazine [Phenergan] 25 mg PO Q4H PRN 04/06/24 [History] cycloSPORINE 0.05% OPHTH SOLN [Restasis] 1 applic BOTH EYES Q12H 04/06/24 [History] oxyCODONE-APAP 5-325MG [Percocet 5-325 mg] 1 tab PO TID 04/06/24 [History] Butalb/APAP/Caff 50-325-40Mg [Fioricet 50-325-40] 1 tab PO BID PRN 06/02/24 [History] Fluticasone Nasal [place] [Flonase Nasal [place]] 1 spr EA NOSTRIL DAILY 06/02/24 [History] Magnesium Oxide [Mag-Ox] 400 mg PO BID tab 06/09/24 [Rx] Tamsulosin [Flomax] 0.4 mg PO PC-BRKFST #30 cap 06/09/24 [Rx] Zinc Sulfate [Orazinc] 220 mg PO DAILY #0 cap 06/09/24 [Rx] Albuterol Inhaler [Ventolin Hfa Inhaler] 2 puff INHALATION RT-QID PRN 07/03/24 [History] Ondansetron Odt [Zofran ODT] 4 mg PO Q8H PRN MDD 12 MG 09/29/24 [History] cloNIDine HCL 0.2 mg PO TID 07/03/24 [History] hydrOXYzine pamoate [Vistaril] 50 mg PO BID PRN #0 07/04/24 [Rx] lamoTRIgine [LaMICtal] See Rx Instructions .ROUTE .COMPLEX #0 07/04/24 [Rx] Follow up Appointment(s)/Referral(s): Ray Segovia MD [Primary Care Provider] - 3 Days [facility],Dr. Franciscoy. [Other] - 1 Week Discharge Disposition: HOME SELF-CARE
== END 2024-07-04 15:41 | disposition home or self-care (01) ==
LOC: EC 09:13 → 6NMEDSUR 12:37
PROVIDERS: ADMIT Family Medicine; ATTEND Family Medicine
DX: R11.2 Nausea with vomiting, unspecified (principal); R10.9 Unspecified abdominal pain; J44.9 Chronic obstructive pulmonary disease, unspecified; K21.9 Gastro-esophageal reflux disease without esophagitis; F41.0 Panic disorder [episodic paroxysmal anxiety]; F31.9 Bipolar disorder, unspecified; G43.909 Migraine, unspecified, not intractable, without status migrainosus; E03.9 Hypothyroidism, unspecified; N18.30 Chronic kidney disease, stage 3 unspecified; F11.10 Opioid abuse, uncomplicated; F13.10 Sedative, hypnotic or anxiolytic abuse, uncomplicated; F17.200 Nicotine dependence, unspecified, uncomplicated; Z86.16 Personal history of COVID-19; Z79.51 Long term (current) use of inhaled steroids; Z79.890 Hormone replacement therapy; Z79.899 Other long term (current) drug therapy; Z88.0 Allergy status to penicillin
CPT/HCPCS: 36415; 74177; 80053; 81003; 82150; 82248; 83605; 83690; 85025; 85610; 85730; 93005; 96361; 96372; 96374; 96375; 96376; 99285

== ENCOUNTER 2024-08-02 08:24 | Emergency (ER) | payer MEDICARE, OTHER ==
--- NOTE | 2024-08-02 08:58 | ED ---
General Adult HPI - General Chief complaint: Abdominal Pain Stated complaint: abd pain Time Seen by Provider: 08/02/24 08:35 Source: patient Mode of arrival: ambulatory Limitations: no limitations - History of Present Illness Initial comments: Dictation was produced using [employer] dictation software. please excuse any grammatical, word or spelling errors. Chief Complaint: 64-year-old female presents to the ER for epigastric abdominal pain History of Present Illness: Patient 64-year-old female presents to the emergency department with epigastric abdominal pain. She states she also vomited some dark emesis. She is not sure if it was bloody or not. Denies any bloody stools or melanotic stool. Patient complains of nausea. Denies any fever chills or night sweats. She has a history of cholecystectomy. Denies any history of peptic ulcer disease. States that she has nonradiating epigastric abdominal pain The ROS documented in this emergency department record has been reviewed and confirmed by me. Those systems with pertinent positive or negative responses have been documented in the HPI. All other systems are other negative and/or no ncontributory. - Related Data Home Medications Medication Instructions Recorded Confirmed Ipratropium-Albuterol Nebulize 3 ml INHALATION RT-TID 11/04/21 07/03/24 [Duoneb 0.5 mg-3 mg/3 ml Soln] Ziprasidone [Geodon] 40 mg PO DAILY 11/04/21 07/03/24 Pantoprazole Sodium [Protonix] 40 mg PO AC-BID 11/12/21 07/03/24 Levothyroxine Sodium [Synthroid] 50 mcg PO DAILY 02/28/22 07/03/24 Montelukast [Singulair] 10 mg PO HS 02/24/23 07/03/24 Ziprasidone [Geodon] 60 mg PO HS 02/24/23 07/03/24 Atorvastatin Calcium 10 mg PO HS 07/03/23 07/03/24 Ergocalciferol (Vitamin D2) 1,250 mcg PO Q7D 07/03/23 07/03/24 [Drisdol (50,000 Iu)] Famotidine [Pepcid] 20 mg PO BID 07/03/23 07/03/24 Fluticasone/Umeclidin/Vilanter 1 puff INHALATION RT-DAILY 04/06/24 07/03/24 [Trelegy Ellipta 200-62.5-25] Linaclotide [Linzess] 145 mcg PO DAILY 04/06/24 07/03/24 Multivitamins, Thera [Multivitamin 1 tab PO DAILY 04/06/24 07/03/24 (formulary)] Pregabalin [Lyrica] 150 mg PO TID 04/06/24 07/03/24 Promethazine [Phenergan] 25 mg PO Q4H PRN 04/06/24 07/03/24 cycloSPORINE 0.05% OPHTH SOLN 1 applic BOTH EYES Q12H 04/06/24 07/03/24 [Restasis] oxyCODONE-APAP 5-325MG [Percocet 1 tab PO TID 04/06/24 07/03/24 5-325 mg] Butalb/APAP/Caff 50-325-40Mg 1 tab PO BID PRN 06/02/24 07/03/24 [Fioricet 50-325-40] Fluticasone Nasal [place] [Flonase 1 spr EA NOSTRIL DAILY 06/02/24 07/03/24 Nasal [place]] Albuterol Inhaler [Ventolin Hfa 2 puff INHALATION RT-QID PRN 07/03/24 07/03/24 Inhaler] Ondansetron Odt [Zofran ODT] 4 mg PO Q8H PRN MDD 12 MG 07/03/24 07/03/24 cloNIDine HCL 0.2 mg PO TID 07/03/24 07/03/24 Previous Rx's Medication Instructions Recorded Magnesium Oxide [Mag-Ox] 400 mg PO BID tab 06/09/24 Tamsulosin [Flomax] 0.4 mg PO PC-BRKFST #30 cap 06/09/24 Zinc Sulfate [Orazinc] 220 mg PO DAILY #0 cap 06/09/24 hydrOXYzine pamoate [Vistaril] 50 mg PO BID PRN #0 07/04/24 lamoTRIgine [LaMICtal] See Rx Instructions .ROUTE 07/04/24 .COMPLEX #0 Ondansetron Odt [Zofran Odt] 4 mg PO Q8HR PRN #12 tab 08/02/24 Allergies Allergy/AdvReac Type Severity Reaction Status Date / Time amoxicillin Allergy Anaphylaxis Verified 08/02/24 08:31 Review of Systems ROS Statement: Those systems with pertinent positive or pertinent negative responses have been documented in the HPI. ROS Other: All systems not noted in ROS Statement are negative. Past Medical History Past Medical History: COPD, GERD/Reflux, Renal Disease, Thyroid Disorder Additional Past Medical History / Comment(s): cysts on (R) kidney. PARATHYROID REMOVED, NAUSEA, CONSTIPATION, monoclonal gammopathy History of Any Multi-Drug Resistant Organisms: None Reported Past Surgical History: Cholecystectomy, Hysterectomy Additional Past Surgical History / Comment(s): parathyroidectomy, Cataract both eyes Past Anesthesia/Blood Transfusion Reactions: No Reported Reaction Additional Past Anesthesia/Blood Transfusion Reaction / Comment(s): "Have woken up during surgery before" COLONOSCOPY AND EGD " Past Psychological History: Anxiety, Bipolar, Depression Smoking Status: Current every day smoker Past Alcohol Use History: None Reported Past Drug Use History: None Reported - Past Family History Father Family Medical History: Cancer, Coronary Artery Disease (CAD) Additional Family Medical History / Comment(s): Father is of blood cancer. Mother Family Medical History: Coronary Artery Disease (CAD) Additional Family Medical History / Comment(s): KIDNEY DISEASE Son(s) Family Medical History: Cancer Additional Family Medical History / Comment(s): Brain tumor - . Sister(s) Family Medical History: Cancer Additional Family Medical History / Comment(s): Breast cancer. General Exam - General Exam Comments Initial Comments: PHYSICAL EXAM: General Impression: Alert and oriented x3, not in acute distress HEENT: Normocephalic atraumatic, extra-ocular movements intact, pupils equal and reactive to light bilaterally, mucous membranes moist. Cardiovascular: Heart regular rate and rhythm Chest: Able to complete full sentences, no retractions, no tachypnea Abdomen: abdomen soft, n epigastric palpatory abdominal pain, non-distended, no organomegaly Musculoskeletal: Pulses present and equal in all extremities, no peripheral edema Motor: no focal deficits noted Neurological: CN II-XII grossly intact, no focal motor or sensory deficits noted Skin: Intact with no visualized rashes Psych: Normal affect and mood Limitations: no limitations Course Vital Signs 08/02/24 08/02/24 08:25 09:45 Temperature 97.8 F Pulse Rate 125 H 103 H Respiratory 18 185 H Rate Blood Pressure 134/90 164/118 O2 Sat by Pulse 97 99 Oximetry Medical Decision Making - Medical Decision Making Was pt. sent in by a medical professional or institution (, PA, TEACHER OF THE DEAF, urgent care, hospital, or shelter...) When possible be specific @ -No Did you speak to anyone other than the patient for history (EMS, parent, family, police, friend...)? What history was obtained from this source @ -No Did you review nursing and triage notes (agree or disagree)? Why? @ -I reviewed and agree with nursing and triage notes Were old charts reviewed (outside hosp., previous admission, EMS record, old EKG, old radiological studies, urgent care reports/EKG's, shelter records)? Report findings @ -No old charts were reviewed Differential Diagnosis (chest pain, altered mental status, abdominal pain women, abdominal pain men, vaginal bleeding, musculoskeletal, weakness, fever, dyspnea, syncope, headache, dizziness, GI bleed, back pain, seizure, CVA, palpatations, mental health)? @ -Differential Abdominal Pain Women: Appendicitis, Cholecystitis, diverticulosis, ischemic bowel, pancreatitis, hepatitis, UTI, gastroenteritis, AAA, incarcerated hernia, bowel obstruction, constipation, inflammatory bowel, hepatitis, peptic ulcer disease, splenic infarction, perforated viscus, vulvitis, ovarian torsion, PID, kidney stone, placenta abruption, this is not meant to be an all-inclusive list EKG interpreted by me (3pts min.). @ -My EKG interpretation: Ventricular rate 100, sinus rhythm,. 140, QRS 108, QTc 433. No SD prolongation, no QTC prolongation, no ST or T-wave changes noted. Overall, this EKG is unremarkable X-rays interpreted by me (1pt min.). @ -Abdominal x-ray shows no obstruction no free air CT interpreted by me (1pt min.). @ -None done U/S interpreted by me (1pt. min.). @ -None done What testing was considered but not performed or refused? (CT, X-rays, U/S, labs)? Why? @ -None What meds were considered but not given or refused? Why? @ -None Was smoking cessation discussed for >3mins.? @ -No Were there social determinants of health that impacted care today? How? (Homelessness, low income, unemployed, alcoholism, drug addiction, transportation, low edu. Level, literacy, decrease access to med. care, usp, rehab)? @ -No Was there de-escalation of care discussed even if they declined (Discuss DNR or withdrawal of care, Hospice)? DNR status @ -No What co-morbidities impacted this encounter? (DM, HTN, Smoking, COPD, CAD, Cancer, CVA, ARF, Chemo, Hep., AIDS, mental health diagnosis, sleep apnea, morbid obesity)? @ -None Was patient admitted / discharged? Hospital course, mention meds given and route, prescriptions, significant lab abnormalities, going to OR and other pertinent info. @ -64-year-old female presents to the emergency department with epigastric abdominal pain nausea and vomiting she did feel like her emesis looked bloody. Mildly tachycardic at the bedside initially however improved upon repeat. Laboratory evaluation obtained. Labs within acceptable limits. Patient reports significant improvement after GI cocktail. There is concern for gastritis versus peptic ulcer disease. Fortunately patient has an appointment with GI doctor tomorrow. She does not take any anticoagulation medications. She is currently on Protonix. Patient counseled on lifestyle changes to help in improving GI symptoms. Return precautions discussed. Patient given Protonix. Prescription provided for antiemetics Did you discuss the management of the patient with other professionals (professionals i.e. , PA, TEACHER OF THE DEAF, lab, RT, psych nurse, protective services social worker, phone manager, teacher, energy control officer, rifle case repairer)? Give summary @ -No Was critical care preformed (if so, how long)? @ -No Undiagnosed new problem with uncertain prognosis? @ -No Drug Therapy requiring intensive monitoring for toxicity (Heparin, Nitro, Insulin, Cardizem)? @ -No Were any procedures done? @ -No Diagnosis/symptom? Acute, or Chronic, or Acute on Chronic? Uncomplicated (without systemic symptoms) or Complicated (systemic symptoms)? @ -Gastritis versus peptic ulcer disease Side effects of treatment? @ -No Exacerbation, Progression, or Severe Exacerbation? @ -No Poses a threat to life or bodily function? How? (Chest pain, USA, LA, pneumonia, PE, COPD, DKA, ARF, appy, cholecystitis, CVA, Diverticulitis, Homicidal, Suicidal, threat to staff... and all critical care pts) @ -yes - Lab Data Result diagrams: 08/02/24 08:55 08/02/24 08:55 Lab Results 08/02/24 08/02/24 Range/Units 08:55 08:55 WBC 10.6 (3.8-10.6) k/uL RBC 5.65 H (3.80-5.40) m/uL Hgb 17.4 H (11.4-16.0) gm/dL Hct 51.2 H (34.0-46.0) % MCV 90.6 (80.0-100.0) fL MCH 30.8 (25.0-35.0) pg MCHC 34.0 (31.0-37.0) g/dL RDW 12.9 (11.5-15.5) % Plt Count 307 (150-450) k/uL MPV 6.8 Neutrophils % 80 % Lymphocytes % 13 % Monocytes % 6 % Eosinophils % 0 % Basophils % 0 % Neutrophils # 8.5 H (1.3-7.7) k/uL Lymphocytes # 1.4 (1.0-4.8) k/uL Monocytes # 0.6 (0-1.0) k/uL Eosinophils # 0.0 (0-0.7) k/uL Basophils # 0.0 (0-0.2) k/uL Sodium 141 (137-145) mmol/L Potassium 4.2 (3.5-5.1) mmol/L Chloride 110 H (98-107) mmol/L Carbon Dioxide 19 L (22-30) mmol/L Anion Gap 12 mmol/L BUN 16 (7-17) mg/dL Creatinine 1.27 H (0.52-1.04) mg/dL Est GFR (CKD-EPI)AfAm 52 (>60 ml/min/1.73 sqM) Est GFR (CKD-EPI)NonAf 45 (>60 ml/min/1.73 sqM) Glucose 125 H (74-99) mg/dL Calcium 10.9 H (8.4-10.2) mg/dL Total Bilirubin 0.6 (0.2-1.3) mg/dL AST 27 (14-36) U/L ALT 20 (4-34) U/L Alkaline Phosphatase 175 H (38-126) U/L Total Protein 7.5 (6.3-8.2) g/dL Albumin 4.9 (3.5-5.0) g/dL Lipase 110 (23-300) U/L Disposition Clinical Impression: Gastritis Disposition: HOME SELF-CARE Condition: Fair Instructions (If sedation given, give patient instructions): Gastritis (ED) Prescriptions: Ondansetron Odt [Zofran Odt] 4 mg PO Q8HR PRN #12 tab PRN Reason: Nausea Is patient prescribed a controlled substance at d/c from ED?: No Referrals: Adelita Bonilla MD [STAFF PHYSICIAN] - 1-2 days
[2024-08-02 09:04] LABS: Basophils % (A) 0 %; Eosinophils % (A) 0 %; HCT 51.2 % (34.0-46.0); HGB 17.4 gm/dL (11.4-16.0); Lymphocytes # (A) 1.4 k/uL (1.0-4.8); Lymphocytes % (A) 13 %; MCH 30.8 pg (25.0-35.0); MCV 90.6 fL (80.0-100.0); Mean Platelet Volume 6.8; Monocytes # (A) 0.6 k/uL (0-1.0); Monocytes % (A) 6 %; Neutrophils # (A) 8.5 k/uL (1.3-7.7); Neutrophils % (A) 80 %; Platelet Count 307 k/uL (150-450); RBC 5.65 m/uL (3.80-5.40); RDW 12.9 % (11.5-15.5); WBC 10.6 k/uL (3.8-10.6)
[2024-08-02 09:23] LABS: ALT 20 U/L (4-34); AST 27 U/L (14-36); African American GFR (CKD) 52 (>60 ml/min/1.73 sqM); Albumin 4.9 g/dL (3.5-5.0); Alkaline Phosphatase 175 U/L (38-126); Anion Gap 12 mmol/L; Blood Urea Nitrogen 16 mg/dL (7-17); Calcium 10.9 mg/dL (8.4-10.2); Carbon Dioxide 19 mmol/L (22-30); Chloride 110 mmol/L (98-107); Glucose 125 mg/dL (74-99); Lipase 110 U/L (23-300); Non-African American GFR(CKD) 45 (>60 ml/min/1.73 sqM); Potassium 4.2 mmol/L (3.5-5.1); Sodium 141 mmol/L (137-145); Total Bilirubin 0.6 mg/dL (0.2-1.3); Total Protein 7.5 g/dL (6.3-8.2)
[2024-08-02] MEDS: ONDANSETRON 4 MG/2 ML VIAL IVP STA (09:37)
--- NOTE | 2024-08-02 09:37 | XR ---
EXAMINATION TYPE: XR abdomen 1V DATE OF EXAM: 08/02/2024 Comparison: 08/01/2024 Clinical History: 64-year-old female abdominal pain Findings: Lung bases are clear. No evidence for free intraperitoneal air. Small air-fluid levels within the colon. No significant stool burden. Minimal to mild stool scattered throughout. Air extends distally to the rectum. No dilated small bowel loops in the frontal air-fluid levels. Cholecystectomy clips. No suspicious calcifications seen. Levoconvex curvature lumbar spine. Impression: 1. No evidence for free air or bowel obstruction. 2. Scattered air-fluid levels in the colon suggests liquid stool/diarrheal state. Clinically correlat farrah. [facility], , 08/02/2024 9:34 AM
[2024-08-02] MEDS: MAG HYDROX/AL HYDROX/SIMETH 30 ML, HYOSCYAMINE ELIXIR 10 ML, LIDOCAINE VISCOUS 2% 10 ML PO STA (09:38)
[2024-08-02 09:46] VITALS: PULSE 103
[2024-08-02 12:14] VITALS: BP 147/107; RESP 18; TEMP 98.7
== END 2024-08-02 13:13 | disposition home or self-care (01) ==
LOC: EC 08:24
CPT/HCPCS: 36415; 74018; 80053; 83690; 85025; 93005; 96374; 99284

== ENCOUNTER 2024-12-24 11:20 | Emergency (ER) | payer MEDICARE, OTHER ==
[2024-12-24 11:31] VITALS: TEMP 97.7
--- NOTE | 2024-12-24 12:09 | ED ---
Abdominal Pain HPI - General Source: patient, RN notes reviewed Mode of arrival: ambulatory Limitations: no limitations <Christine Fabian - Last Filed: 12/24/24 12:09> <Mark Novak - Last Filed: 12/25/24 16:41> - General Chief Complaint: Abdominal Pain Stated Complaint: Lower right flank pain Time Seen by Provider: 12/24/24 12:09 - History of Present Illness Initial Comments: Quick note: 64-year-old female presented the ER for evaluation of right lower quadrant abdominal pain. She states this started yesterday afternoon and has been progressively worsening. She admits to chills but denies fevers, nausea, vomiting, diarrhea or urinary complaints. (Christine Fabian) This is a 64-year-old female who presents to the emergency department complaining of right sided abdominal pain. Patient states that started yesterday and has been on and off all day today. Patient states she has a history of constipation and she has not been able to go to bed for 3 days. Patient denies any fever chills. Patient states she is mildly nauseated. Patient denies any diarrhea. Patient denies any chest pain difficulty breathing or shortness of breath. (Mark Novak) - Related Data Home Medications Medication Instructions Recorded Confirmed Ipratropium-Albuterol Nebulize 3 ml INHALATION RT-TID 11/04/21 08/02/24 [Duoneb 0.5 mg-3 mg/3 ml Soln] Ziprasidone [Geodon] 40 mg PO DAILY 11/04/21 08/02/24 Pantoprazole Sodium [Protonix] 40 mg PO AC-BID 11/12/21 08/02/24 Levothyroxine Sodium [Synthroid] 50 mcg PO DAILY 02/28/22 08/02/24 Montelukast [Singulair] 10 mg PO HS 02/24/23 08/02/24 Ziprasidone [Geodon] 60 mg PO HS 02/24/23 08/02/24 Atorvastatin Calcium 10 mg PO HS 07/03/23 08/02/24 Ergocalciferol (Vitamin D2) 1,250 mcg PO Q7D 07/03/23 08/02/24 [Drisdol (50,000 Iu)] Famotidine [Pepcid] 20 mg PO BID 07/03/23 08/02/24 Fluticasone/Umeclidin/Vilanter 1 puff INHALATION RT-DAILY 04/06/24 08/02/24 [Trelegy Ellipta 200-62.5-25] Linaclotide [Linzess] 145 mcg PO DAILY 04/06/24 08/02/24 Multivitamins, Thera [Multivitamin 1 tab PO DAILY 04/06/24 08/02/24 (formulary)] Pregabalin [Lyrica] 150 mg PO TID 04/06/24 08/02/24 Promethazine [Phenergan] 25 mg PO Q4H PRN 04/06/24 08/02/24 cycloSPORINE 0.05% OPHTH SOLN 1 drop BOTH EYES Q12H 04/06/24 08/02/24 [Restasis] oxyCODONE-APAP 5-325MG [Percocet 1 tab PO TID 04/06/24 08/02/24 5-325 mg] Butalb/APAP/Caff 50-325-40Mg 1 tab PO BID PRN 06/02/24 08/02/24 [Fioricet 50-325-40] Fluticasone Nasal [place] [Flonase 1 spr EA NOSTRIL DAILY 06/02/24 08/02/24 Nasal [place]] Albuterol Inhaler [Ventolin Hfa 2 puff INHALATION RT-QID PRN 07/03/24 08/02/24 Inhaler] Ondansetron Odt [Zofran ODT] 4 mg PO Q8H PRN MDD 12 MG 07/03/24 08/02/24 cloNIDine HCL 0.2 mg PO TID 07/03/24 08/02/24 Cariprazine HCl [Vraylar] 1.5 mg PO DAILY 08/02/24 08/02/24 Mirtazapine [Remeron] 45 mg PO HS 08/02/24 08/02/24 lamoTRIgine [LaMICtal] 100 mg PO DAILY 08/02/24 08/02/24 lamoTRIgine [LaMICtal] 150 mg PO HS 08/02/24 08/02/24 Previous Rx's Medication Instructions Recorded Magnesium Oxide [Mag-Ox] 400 mg PO BID tab 06/09/24 Tamsulosin [Flomax] 0.4 mg PO PC-BRKFST #30 cap 06/09/24 Zinc Sulfate [Orazinc] 220 mg PO DAILY #0 cap 06/09/24 hydrOXYzine pamoate [Vistaril] 50 mg PO BID PRN #0 07/04/24 Ondansetron Odt [Zofran Odt] 4 mg PO Q8HR PRN #12 tab 08/02/24 Allergies Allergy/AdvReac Type Severity Reaction Status Date / Time amoxicillin Allergy Anaphylaxis Verified 12/24/24 11:31 Review of Systems ROS Other: All systems not noted in ROS Statement are negative. <Christine Fabian - Last Filed: 12/24/24 12:09> ROS Other: All systems not noted in ROS Statement are negative. <Mark Novak - Last Filed: 12/25/24 16:41> ROS Statement: Those systems with pertinent positive or pertinent negative responses have been documented in the HPI. Past Medical History Past Medical History: COPD, GERD/Reflux, Renal Disease, Thyroid Disorder Additional Past Medical History / Comment(s): cysts on (R) kidney. PARATHYROID REMOVED, NAUSEA, CONSTIPATION, monoclonal gammopathy History of Any Multi-Drug Resistant Organisms: None Reported Past Surgical History: Cholecystectomy, Hysterectomy Additional Past Surgical History / Comment(s): parathyroidectomy, Cataract both eyes Past Anesthesia/Blood Transfusion Reactions: No Reported Reaction Additional Past Anesthesia/Blood Transfusion Reaction / Comment(s): "Have woken up during surgery before" COLONOSCOPY AND EGD " Past Psychological History: Anxiety, Bipolar, Depression Smoking Status: Current every day smoker Past Alcohol Use History: None Reported Past Drug Use History: None Reported - Past Family History Father Family Medical History: Cancer, Coronary Artery Disease (CAD) Additional Family Medical History / Comment(s): Father is of blood cancer. Mother Family Medical History: Coronary Artery Disease (CAD) Additional Family Medical History / Comment(s): KIDNEY DISEASE Son(s) Family Medical History: Cancer Additional Family Medical History / Comment(s): Brain tumor - . Sister(s) Family Medical History: Cancer Additional Family Medical History / Comment(s): Breast cancer. <Christine Fabian - Last Filed: 12/24/24 12:09> General Exam Limitations: no limitations <Christine Fabian - Last Filed: 12/24/24 12:09> <Mark Novak - Last Filed: 12/25/24 16:41> - General Exam Comments Initial Comments: Visual Physical Exam Vital signs reviewed General: Well-appearing, nontoxic, no acute distress. Head: Normocephalic, atraumatic Eyes: PERRLA, EOMI ENT: Airway patent Chest: Nonlabored breathing Skin: No visual rash, normal skin tone Neuro: Alert and oriented 3 Musculoskeletal: No gross abnormalities (Christine Fabian) GENERAL: Patient is well-developed and well-nourished. Patient is nontoxic and well- hydrated and is in mild distress. ENT: Neck is soft and supple. No significant lymphadenopathy is noted. Oropharynx is clear. Moist mucous membranes. Neck has full range of motion without eliciting any pain. EYES: The sclera were anicteric and conjunctiva were pink and moist. Extraocular movements were intact and pupils were equal round and reactive to light. Eyelids were unremarkable. PULMONARY: Unlabored respirations. Good breath sounds bilaterally. No audible rales rhonchi or wheezing was noted. CARDIOVASCULAR: There is a regular rate and rhythm without any murmurs gallops or rubs. ABDOMEN: Soft and nontender with normal bowel sounds. SKIN: Skin is clear with no lesions or rashes and otherwise unremarkable. NEUROLOGIC: Patient is alert and oriented x3. Cranial nerves II through XII are grossly intact. Motor and sensory are also intact. Normal speech, volume and content. Symmetrical smile. MUSCULOSKELETAL: Normal extremities with adequate strength and full range of motion. LYMPHATICS: No significant lymphadenopathy is noted PSYCHIATRIC: Normal psychiatric evaluation. (Mark Novak) Course Vital Signs 12/24/24 12/24/24 12/24/24 11:28 15:36 16:23 Temperature 97.7 F Pulse Rate 62 102 H 82 Respiratory 17 20 18 Rate Blood Pressure 126/77 139/81 126/98 O2 Sat by Pulse 98 98 98 Oximetry Medical Decision Making <Christine Fabian - Last Filed: 12/24/24 12:09> - Lab Data Result diagrams: 12/24/24 12:21 12/24/24 12:21 <Mark Novak - Last Filed: 12/25/24 16:41> - Medical Decision Making I performed the quick note portion of this chart. Electronically signed by Christine Fabian PA-C (Christine Fabian) Was pt. sent in by a medical professional or institution ([facility], [employer], urgent care, hospital, or fpc...) When possible be specific @ -No Did you speak to anyone other than the patient for history (EMS, parent, family, police, friend...)? What history was obtained from this source @ -No Did you review nursing and triage notes (agree or disagree)? Why? @ -I reviewed and agree with nursing and triage notes Were old charts reviewed (outside hosp., previous admission, EMS record, old EKG, old radiological studies, urgent care reports/EKG's, fpc records)? Report findings @ -No old charts were reviewed Differential Diagnosis? @ -Differential Abdominal Pain Women: Appendicitis, Cholecystitis, diverticulosis, ischemic bowel, pancreatitis, hepatitis, UTI, gastroenteritis, AAA, incarcerated hernia, bowel obstruction, constipation, inflammatory bowel, hepatitis, peptic ulcer disease, splenic infarction, perforated viscus, vulvitis, ovarian torsion, PID, kidney stone, placenta abruption, this is not meant to be an all-inclusive list EKG interpreted by me (3pts min.). @ -As above X-rays interpreted by me (1pt min.). @ -None done CT interpreted by me (1pt min.). @ -CT of the abdomen pelvis shows no acute abnormality of there is some constipation U/S interpreted by me (1pt. min.). @ -None done What testing was considered but not performed or refused? (CT, X-rays, U/S, labs)? Why? @ -None What meds were considered but not given or refused? Why? @ -None Did you discuss the management of the patient with other professionals (professionals i.e. [facility], [employer], lab, RT, psych nurse, social professionals, geochemical laboratory technician, teacher, community development officer, therapeutic case manager)? Give summary @ -No Was smoking cessation discussed for >3mins.? @ -No Was critical care preformed (if so, how long)? @ -No Were there social determinants of health that impacted care today? How? (Homelessness, low income, unemployed, alcoholism, drug addiction, transportation, low edu. Level, literacy, decrease access to med. care, [facility], rehab)? @ -No Was there de-escalation of care discussed even if they declined (Discuss DNR or withdrawal of care, Hospice)? DNR status @ -No What co-morbidities impacted this encounter? (DM, HTN, Smoking, COPD, CAD, Cancer, CVA, ARF, Chemo, Hep., AIDS, mental health diagnosis, sleep apnea, morbid obesity)? @ -None Was patient admitted / discharged? Hospital course, mention meds given and route, prescriptions, significant lab abnormalities, going to OR and other pertinent info. @ -Patient did not appear to be in any distress palpating the abdomen it was not tender to palpation Undiagnosed new problem with uncertain prognosis? @ -No Drug Therapy requiring intensive monitoring for toxicity (Heparin, Nitro, Insulin, Cardizem)? @ -No Were any procedures done? @ -No Diagnosis/symptom? @ -Abdominal pain Acute, or Chronic, or Acute on Chronic? @ -Acute Uncomplicated (without systemic symptoms) or Complicated (systemic symptoms)? @ -Complicated Side effects of treatment? @ -No Exacerbation, Progression, or Severe Exacerbation? @ -No Poses a threat to life or bodily function? How? (Chest pain, [place], DC, pneumonia, PE, COPD, DKA, ARF, appy, cholecystitis, CVA, Diverticulitis, Homicidal, Suicidal, threat to staff... and all critical care pts) @ -No Diagnosis/symptom? @ -Constipation Acute, or Chronic, or Acute on Chronic? @ -Acute Uncomplicated (without systemic symptoms) or Complicated (systemic symptoms)? @ -Default Side effects of treatment? @ -None Exacerbation, Progression, or Severe Exacerbation] @ -No Poses a threat to life or bodily function? @ -No (Mark Novak) - Lab Data Lab Results 12/24/24 12/24/24 12/24/24 Range/Units 12:20 12:21 12:21 WBC 10.2 (3.8-10.6) k/uL RBC 4.75 (3.80-5.40) m/uL Hgb 14.1 (11.4-16.0) gm/dL Hct 42.8 (34.0-46.0) % MCV 90.1 (80.0-100.0) fL MCH 29.7 (25.0-35.0) pg MCHC 33.0 (31.0-37.0) g/dL RDW 13.4 (11.5-15.5) % Plt Count 261 (150-450) k/uL MPV 6.7 Neutrophils % 77 % Lymphocytes % 15 % Monocytes % 5 % Eosinophils % 1 % Basophils % 0 % Neutrophils # 7.9 H (1.3-7.7) k/uL Lymphocytes # 1.5 (1.0-4.8) k/uL Monocytes # 0.5 (0-1.0) k/uL Eosinophils # 0.1 (0-0.7) k/uL Basophils # 0.0 (0-0.2) k/uL Sodium 137 (137-145) mmol/L Potassium 4.9 (3.5-5.1) mmol/L Chloride 105 (98-107) mmol/L Carbon Dioxide 27 (22-30) mmol/L Anion Gap 5 mmol/L BUN 25 H (7-17) mg/dL Creatinine 1.59 H (0.52-1.04) mg/dL Est GFR (CKD-EPI)AfAm 40 (>60 ml/min/1.73 sqM) Est GFR (CKD-EPI)NonAf 34 (>60 ml/min/1.73 sqM) Glucose 105 H (74-99) mg/dL Plasma Lactic Acid Jorge (0.7-2.0) mmol/L Calcium 10.0 (8.4-10.2) mg/dL Total Bilirubin 0.4 (0.2-1.3) mg/dL AST 20 (14-36) U/L ALT 17 (4-34) U/L Alkaline Phosphatase 148 H (38-126) U/L Total Protein 6.7 (6.3-8.2) g/dL Albumin 4.4 (3.5-5.0) g/dL Amylase 89 (30-110) U/L Lipase 120 (23-300) U/L Urine Color Colorless Urine Appearance Clear (Clear) Urine pH 6.5 (5.0-8.0) Ur Specific [place] 1.007 (1.001-1.035) Urine Protein Negative (Negative) Urine Glucose (UA) Negative (Negative) Urine Ketones Negative (Negative) Urine Blood Negative (Negative) Urine Nitrite Negative (Negative) Urine Bilirubin Negative (Negative) Urine Urobilinogen <2.0 (<2.0) mg/dL Ur Leukocyte Esterase Negative (Negative) 12/24/24 Range/Units 12:21 WBC (3.8-10.6) k/uL RBC (3.80-5.40) m/uL Hgb (11.4-16.0) gm/dL Hct (34.0-46.0) % MCV (80.0-100.0) fL MCH (25.0-35.0) pg MCHC (31.0-37.0) g/dL RDW (11.5-15.5) % Plt Count (150-450) k/uL MPV Neutrophils % % Lymphocytes % % Monocytes % % Eosinophils % % Basophils % % Neutrophils # (1.3-7.7) k/uL Lymphocytes # (1.0-4.8) k/uL Monocytes # (0-1.0) k/uL Eosinophils # (0-0.7) k/uL Basophils # (0-0.2) k/uL Sodium (137-145) mmol/L Potassium (3.5-5.1) mmol/L Chloride (98-107) mmol/L Carbon Dioxide (22-30) mmol/L Anion Gap mmol/L BUN (7-17) mg/dL Creatinine (0.52-1.04) mg/dL Est GFR (CKD-EPI)AfAm (>60 ml/min/1.73 sqM) Est GFR (CKD-EPI)NonAf (>60 ml/min/1.73 sqM) Glucose (74-99) mg/dL Plasma Lactic Acid Jorge 1.0 (0.7-2.0) mmol/L Calcium (8.4-10.2) mg/dL Total Bilirubin (0.2-1.3) mg/dL AST (14-36) U/L ALT (4-34) U/L Alkaline Phosphatase (38-126) U/L Total Protein (6.3-8.2) g/dL Albumin (3.5-5.0) g/dL Amylase (30-110) U/L Lipase (23-300) U/L Urine Color Urine Appearance (Clear) Urine pH (5.0-8.0) Ur Specific [place] (1.001-1.035) Urine Protein (Negative) Urine Glucose (UA) (Negative) Urine Ketones (Negative) Urine Blood (Negative) Urine Nitrite (Negative) Urine Bilirubin (Negative) Urine Urobilinogen (<2.0) mg/dL Ur Leukocyte Esterase (Negative) Disposition <Christine Fabian - Last Filed: 12/24/24 12:09> Is patient prescribed a controlled substance at d/c from ED?: No Time of Disposition: 16:11 <Mark Novak - Last Filed: 12/25/24 16:41> Clinical Impression: Abdominal pain, Constipation Disposition: HOME SELF-CARE Instructions (If sedation given, give patient instructions): Constipation (ED), High Fiber Diet (ED), Abdominal Pain (ED) Additional Instructions: Patient should take Benefiber twice a day and drink plenty of water Referrals: Ray Segovia MD [Primary Care Provider] - 1-2 days
[2024-12-24 12:35] LABS: Basophils % (A) 0 %; Eosinophils # (A) 0.1 k/uL (0-0.7); Eosinophils % (A) 1 %; HCT 42.8 % (34.0-46.0); HGB 14.1 gm/dL (11.4-16.0); Lymphocytes # (A) 1.5 k/uL (1.0-4.8); Lymphocytes % (A) 15 %; MCH 29.7 pg (25.0-35.0); MCV 90.1 fL (80.0-100.0); Mean Platelet Volume 6.7; Monocytes # (A) 0.5 k/uL (0-1.0); Monocytes % (A) 5 %; Neutrophils # (A) 7.9 k/uL (1.3-7.7); Neutrophils % (A) 77 %; Platelet Count 261 k/uL (150-450); RBC 4.75 m/uL (3.80-5.40); RDW 13.4 % (11.5-15.5); WBC 10.2 k/uL (3.8-10.6)
[2024-12-24 12:53] LABS: ALT 17 U/L (4-34); AST 20 U/L (14-36); African American GFR (CKD) 40 (>60 ml/min/1.73 sqM); Albumin 4.4 g/dL (3.5-5.0); Alkaline Phosphatase 148 U/L (38-126); Amylase 89 U/L (30-110); Anion Gap 5 mmol/L; Blood Urea Nitrogen 25 mg/dL (7-17); Carbon Dioxide 27 mmol/L (22-30); Chloride 105 mmol/L (98-107); Glucose 105 mg/dL (74-99); Lipase 120 U/L (23-300); Non-African American GFR(CKD) 34 (>60 ml/min/1.73 sqM); Potassium 4.9 mmol/L (3.5-5.1); Sodium 137 mmol/L (137-145); Total Bilirubin 0.4 mg/dL (0.2-1.3); Total Protein 6.7 g/dL (6.3-8.2)
[2024-12-24 13:13] LABS: Appearance,Urine Clear (Clear); Bilirubin,Urine Negative (Negative); Blood,Urine Negative (Negative); Color,Urine Colorless; Glucose,Urine (UA) Negative (Negative); Ketones,Urine Negative (Negative); Leukocyte Esterase,Urine Negative (Negative); Nitrite,Urine Negative (Negative); PH, Urine 6.5 (5.0-8.0); Protein,Urine Negative (Negative); Specific Gravity,Urine 1.007 (1.001-1.035); Urobilinogen,Urine <2.0 mg/dL (<2.0)
--- NOTE | 2024-12-24 13:49 | CT ---
EXAMINATION TYPE: CT abdomen pelvis wo con DATE OF EXAM: 12/24/2024 COMPARISON: Prior CT July 03, 2024. CLINICAL INDICATION: Female, 64 years old with history of RLQ abd pain, RLQ PAIN X FEW DAYS WITH NAUS EA, TECHNIQUE: CT scan of the abdomen and pelvis is performed , patient injected with mL of ., (none if empty) Oral contrast used: without Oral Contrast (none if empty) CT DLP: 458.9 mGycm, Automated exposure control for dose reduction was used. FINDINGS: Within the limitations of a noncontrast study, the following observations are made. LUNG BASES: Some new groundglass opacity in the periphery of the left lung base. Suspect atelectasis. LIVER/GB: Cholecystectomy clips are redemonstrated. PANCREAS: No significant abnormality is seen. SPLEEN: No significant abnormality is seen. ADRENALS: No significant abnormality is seen. KIDNEYS: Cortical thinning with a few simple thin-walled cysts in both kidneys are redemonstrated. No hydronephrosis or obstructing ureteral calculi are seen bilaterally. BOWEL: Suboptimal evaluation without enteric contrast. Sigmoid colonic diverticulosis. No CT evidence for acute diverticulitis. No abnormal small or large bowel dilatation. Appendix within normal limits for base of cecum in the right pelvis. UTERUS/ADNEXA: Uterus is surgically absent. LYMPH NODES: No greater than 1cm abdominal or pelvic lymph nodes are appreciated. OSSEOUS STRUCTURES: Scoliosis is redemonstrated. OTHER: No significant additional abnormality is seen. IMPRESSION: No significant new or acute finding on noncontrast CT is seen to account for patient's cl inical symptoms . [facility], , 12/24/2024 1:47 PM
[2024-12-24] MEDS ORDERED: KETOROLAC 15 MG/ML 1 ML VIAL IVP STA (15:41)
[2024-12-24 16:24] VITALS: BP 126/98; PULSE 82; RESP 18
[2024-12-24] MEDS: KETOROLAC 15 MG/ML 1 ML VIAL IM STA (16:37)
== END 2024-12-24 16:37 | disposition home or self-care (01) ==
LOC: EC 11:20
DX: K59.00 Constipation, unspecified (principal); F17.200 Nicotine dependence, unspecified, uncomplicated; Z88.0 Allergy status to penicillin
CPT/HCPCS: 36415; 80053; 82150; 83605; 83690; 85025; 81003; 74176; 99284; 96372; J1885

== ENCOUNTER 2025-01-20 01:33 | Emergency (ER) | payer MEDICARE ==
[2025-01-20 01:38] VITALS: TEMP 97.6
[2025-01-20] MEDS: KETOROLAC 15 MG/ML 1 ML VIAL IVP STA (02:55)
[2025-01-20] MEDS: SODIUM CHLORIDE 0.9% 1,000 ML IV STA (02:55)
[2025-01-20] MEDS: diphenhydrAMINE 50 MG/ML 1 ML VIAL IVP STA (02:57)
[2025-01-20] MEDS: METOCLOPRAMIDE 5 MG/ML 2 ML VIAL IVP STA (03:00)
[2025-01-20 03:16] LABS: Basophils # (A) 0.06 10*3/uL (0.00-0.10); Basophils % (A) 0.6 %; Eosinophils # (A) 0.04 10*3/uL (0.04-0.35); Eosinophils % (A) 0.4 %; HCT 43.8 % (37.2-46.3); HGB 15.4 g/dL (12.0-15.0); Lymphocytes # (A) 2.07 10*3/uL (0.90-5.00); Lymphocytes % (A) 20.1 %; MCH 30.8 pg (27.0-32.0); MCHC 35.2 g/dL (32.0-37.0); MCV 87.6 fL (80.0-97.0); Mean Platelet Volume 9.1 fL (9.5-12.2); Monocytes # (A) 0.78 10*3/uL (0.20-1.00); Monocytes % (A) 7.6 %; Neutrophils # (A) 7.32 10*3/uL (1.80-7.70); Neutrophils % (A) 70.9 %; Platelet Count 286 10*3/uL (140-440); RDW 12.8 % (11.5-14.5); WBC 10.31 10*3/uL (4.50-10.00)
--- NOTE | 2025-01-20 03:26 | CT ---
EXAM: CT Head Without Intravenous Contrast CLINICAL HISTORY: ITS.REASON CT Reason: headache, neck pain, weakness, recent head injury TECHNIQUE: Axial computed tomography images of the head/brain without intravenous contrast. CTDI is 45.2 mGy and DLP is 1041 mGy-cm. This CT exam was performed using one or more of the following dose reduction techniques: automated exposure control, adjustment of the mA and/or kV according to patient size, and/or use of iterative reconstruction technique. COMPARISON: No relevant prior studies available. FINDINGS: Brain: Unremarkable. No hemorrhage. No significant white matter disease. No edema. Ventricles: Unremarkable. No ventriculomegaly. Bones/joints: Unremarkable. No acute fracture. Soft tissues: Unremarkable. Sinuses: Unremarkable as visualized. No acute sinusitis. Mastoid air cells: Unremarkable as visualized. No mastoid effusion. IMPRESSION: Normal head/brain CT. EXAM: CT Cervical Spine Without Intravenous Contrast CLINICAL HISTORY: ITS.REASON CT Reason: headache, neck pain, weakness, recent head injury TECHNIQUE: Axial computed tomography images of the cervical spine without intravenous contrast. CTDI is 8.2 mGy and DLP is 242.9 mGy-cm. This CT exam was performed using one or more of the following dose reduction techniques: automated exposure control, adjustment of the mA and/or kV according to patient size, and/or use of iterative reconstruction technique. COMPARISON: No relevant prior studies available. FINDINGS: The vertebral body heights are maintained. The craniocervical junction is intact. The atlanto-dens interval is maintained. The dens is intact. There is no spondylolisthesis. Multilevel cervical spondylosis and degenerative disc disease. Straightening of the cervical lordosis. The unenhanced neck soft tissues are grossly unremarkable. The visualized lung apices are grossly clear. IMPRESSION: No acute fracture or subluxation of the cervical spine.
[2025-01-20 03:43] LABS: ALT 19 U/L (4-34); AST 23 U/L (14-36); African American GFR (CKD) 38 (>60 ml/min/1.73 sqM); Alkaline Phosphatase 171 U/L (38-126); Anion Gap 8 mmol/L; Blood Urea Nitrogen 25 mg/dL (7-17); Calcium 10.2 mg/dL (8.4-10.2); Carbon Dioxide 25 mmol/L (22-30); Chloride 105 mmol/L (98-107); Glucose 95 mg/dL (74-99); Non-African American GFR(CKD) 33 (>60 ml/min/1.73 sqM); Potassium 4.6 mmol/L (3.5-5.1); Sodium 138 mmol/L (137-145); Total Bilirubin 0.3 mg/dL (0.2-1.3); Total Protein 6.4 g/dL (6.3-8.2)
--- NOTE | 2025-01-20 04:58 | ED ---
General Adult HPI - General Chief complaint: Dizziness Stated complaint: Headache, neck and shoulder pain Time Seen by Provider: 01/20/25 01:40 Source: patient Mode of arrival: wheelchair Limitations: no limitations - History of Present Illness Initial comments: 64-year-old female with past medical history of COPD who presents to the emergency department reporting headache. Patient states that she has had intermittent headaches for months that has caused pain radiating from her left shoulder into the occiput of her left head. She has accompanied symptoms of lightheadedness. She feels off balance and intermittently feels like she is lo sing the strength in her bilateral hands. The symptoms have been going on for the past several months however today the headache was worse than what it normally was causing her to feel nauseated and vomit. Patient states she dropped items on her bilateral feet and has 2 toes that are black and blue. She denies visual disturbance. No speech disturbance. No lateralizing weakness in her legs. No history of stroke. She did not take anything for the headache before coming in. She denies any additional symptoms to include chest pain, shortness of breath, abdominal pain. No changes in her bowel or bladder habits. No other alleviating, precipitating or modifying factors - Related Data Home Medications Medication Instructions Recorded Confirmed Ipratropium-Albuterol Nebulize 3 ml INHALATION RT-TID 11/04/21 08/02/24 [Duoneb 0.5 mg-3 mg/3 ml Soln] Ziprasidone [Geodon] 40 mg PO DAILY 11/04/21 08/02/24 Pantoprazole Sodium [Protonix] 40 mg PO AC-BID 11/12/21 08/02/24 Levothyroxine Sodium [Synthroid] 50 mcg PO DAILY 02/28/22 08/02/24 Montelukast [Singulair] 10 mg PO HS 02/24/23 08/02/24 Ziprasidone [Geodon] 60 mg PO HS 02/24/23 08/02/24 Atorvastatin Calcium 10 mg PO HS 07/03/23 08/02/24 Ergocalciferol (Vitamin D2) 1,250 mcg PO Q7D 07/03/23 08/02/24 [Drisdol (50,000 Iu)] Famotidine [Pepcid] 20 mg PO BID 07/03/23 08/02/24 Fluticasone/Umeclidin/Vilanter 1 puff INHALATION RT-DAILY 04/06/24 08/02/24 [Trelegy Ellipta 200-62.5-25] Linaclotide [Linzess] 145 mcg PO DAILY 04/06/24 08/02/24 Multivitamins, Thera [Multivitamin 1 tab PO DAILY 04/06/24 08/02/24 (formulary)] Pregabalin [Lyrica] 150 mg PO TID 04/06/24 08/02/24 Promethazine [Phenergan] 25 mg PO Q4H PRN 04/06/24 08/02/24 cycloSPORINE 0.05% OPHTH SOLN 1 drop BOTH EYES Q12H 04/06/24 08/02/24 [Restasis] oxyCODONE-APAP 5-325MG [Percocet 1 tab PO TID 04/06/24 08/02/24 5-325 mg] Butalb/APAP/Caff 50-325-40Mg 1 tab PO BID PRN 06/02/24 08/02/24 [Fioricet 50-325-40] Fluticasone Nasal [place] [Flonase 1 spr EA NOSTRIL DAILY 06/02/24 08/02/24 Nasal [place]] Albuterol Inhaler [Ventolin Hfa 2 puff INHALATION RT-QID PRN 07/03/24 08/02/24 Inhaler] Ondansetron Odt [Zofran ODT] 4 mg PO Q8H PRN MDD 12 MG 07/03/24 08/02/24 cloNIDine HCL 0.2 mg PO TID 07/03/24 08/02/24 Cariprazine HCl [Vraylar] 1.5 mg PO DAILY 08/02/24 08/02/24 Mirtazapine [Remeron] 45 mg PO HS 08/02/24 08/02/24 lamoTRIgine [LaMICtal] 100 mg PO DAILY 08/02/24 08/02/24 lamoTRIgine [LaMICtal] 150 mg PO HS 08/02/24 08/02/24 Previous Rx's Medication Instructions Recorded Magnesium Oxide [Mag-Ox] 400 mg PO BID tab 06/09/24 Tamsulosin [Flomax] 0.4 mg PO PC-BRKFST #30 cap 06/09/24 Zinc Sulfate [Orazinc] 220 mg PO DAILY #0 cap 06/09/24 hydrOXYzine pamoate [Vistaril] 50 mg PO BID PRN #0 07/04/24 Ondansetron Odt [Zofran Odt] 4 mg PO Q8HR PRN #12 tab 08/02/24 Cyclobenzaprine [Flexeril] 10 mg PO TID PRN #15 tab 01/20/25 Ondansetron Odt [Zofran Odt] 4 mg PO Q8HR PRN #20 tab 01/20/25 Allergies Allergy/AdvReac Type Severity Reaction Status Date / Time amoxicillin Allergy Anaphylaxis Verified 01/20/25 01:38 Review of Systems ROS Statement: Those systems with pertinent positive or pertinent negative responses have been documented in the HPI. ROS Other: All systems not noted in ROS Statement are negative. Past Medical History Past Medical History: COPD, GERD/Reflux, Renal Disease, Thyroid Disorder Additional Past Medical History / Comment(s): cysts on (R) kidney. PARATHYROID REMOVED, NAUSEA, CONSTIPATION, monoclonal gammopathy History of Any Multi-Drug Resistant Organisms: None Reported Past Surgical History: Cholecystectomy, Hysterectomy Additional Past Surgical History / Comment(s): parathyroidectomy, Cataract both eyes Past Anesthesia/Blood Transfusion Reactions: No Reported Reaction Additional Past Anesthesia/Blood Transfusion Reaction / Comment(s): "Have woken up during surgery before" COLONOSCOPY AND EGD " Past Psychological History: Anxiety, Bipolar, Depression Smoking Status: Current every day smoker Past Alcohol Use History: None Reported Past Drug Use History: None Reported - Past Family History Father Family Medical History: Cancer, Coronary Artery Disease (CAD) Additional Family Medical History / Comment(s): Father is of blood cancer. Mother Family Medical History: Coronary Artery Disease (CAD) Additional Family Medical History / Comment(s): KIDNEY DISEASE Son(s) Family Medical History: Cancer Additional Family Medical History / Comment(s): Brain tumor - . Sister(s) Family Medical History: Cancer Additional Family Medical History / Comment(s): Breast cancer. General Exam Limitations: no limitations General appearance: alert, in no apparent distress Head exam: Present: atraumatic, normocephalic, normal inspection Eye exam: Present: normal appearance, PERRL, EOMI. Absent: scleral icterus, conjunctival injection, periorbital swelling ENT exam: Present: normal exam, mucous membranes moist Neck exam: Present: normal inspection. Absent: tenderness, meningismus, lymphadenopathy Respiratory exam: Present: normal lung sounds bilaterally. Absent: respiratory distress, wheezes, rales, rhonchi, stridor Cardiovascular Exam: Present: regular rate, normal rhythm, normal heart sounds. Absent: systolic murmur, diastolic murmur, rubs, gallop, clicks GI/Abdominal exam: Present: soft, normal bowel sounds. Absent: distended, tenderness, guarding, rebound, rigid Extremities exam: Present: normal inspection, full ROM, normal capillary refill. Absent: tenderness, pedal edema, joint swelling, calf tenderness Back exam: Present: normal inspection Neurological exam: Present: alert, oriented X3, CN II-XII intact Psychiatric exam: Present: normal affect, normal mood Skin exam: Present: warm, dry, intact, other (Ecchymosis to the distal tip of the third digit on the right he had second digit on the left foot). Absent: rash Course Vital Signs 01/20/25 01/20/25 01/20/25 01:36 01:45 02:45 Temperature 97.6 F Pulse Rate 59 L 51 L 48 L Respiratory 18 16 16 Rate Blood Pressure 95/48 102/73 111/80 O2 Sat by Pulse 99 98 95 Oximetry 01/20/25 01/20/25 01/20/25 04:00 06:05 06:25 Temperature 97.6 F Pulse Rate 49 L 49 L 47 L Respiratory 16 18 14 Rate Blood Pressure 111/62 118/65 121/69 O2 Sat by Pulse 95 96 Oximetry Medical Decision Making - Medical Decision Making Was pt. sent in by a medical professional or institution (, PA, W[employer]TERN [employer]ATER, urgent care, hospital, or [facility]...) When possible be specific @ -No Did you speak to anyone other than the patient for history (EMS, parent, family, police, friend...)? What history was obtained from this source @ -Spoke with the who helped provide some of the history Did you review nursing and triage notes (agree or disagree)? Why? @ -I reviewed and agree with nursing and triage notes Were old charts reviewed (outside hosp., previous admission, EMS record, old EKG, old radiological studies, urgent care reports/EKG's, [facility] records)? Report findings @ -No old charts were reviewed Differential Diagnosis (chest pain, altered mental status, abdominal pain women, abdominal pain men, vaginal bleeding, weakness, fever, dyspnea, syncope, headache, dizziness, GI bleed, back pain, seizure, CVA, palpatations, mental health, musculoskeletal)? @ -Differential Headache: Migraine, tension, cluster, carbon monoxide, central venous thrombosis, pension karma temporal arteritis, acute closure glaucoma, intercranial hemorrhage, mastoiditis, sinusitis, head injury, this is not meant to be an all-inclusive list. EKG interpreted by me (3pts min.). @ -Yes and demonstrates sinus bradycardia with a rate of 51. MI interval 210. QRS 115. QTc of 469. No acute ST segment elevations or depressions X-rays interpreted by me (1pt min.). @ -Yes which demonstrates no irregularities of the distal phalanx where patient has pain CT interpreted by me (1pt min.). @ -Yes which demonstrates no acute process U/S interpreted by me (1pt. min.). @ -None done What testing was considered but not performed or refused? (CT, X-rays, U/S, labs)? Why? @ -None What meds were considered but not given or refused? Why? @ -None Did you discuss the management of the patient with other professionals (professionals i.e. , PA, [employer]TERN [employer], lab, RT, psych nurse, social services manager, occupational therapy teacher, teacher, contracts officer, continuous pillowcase cutter)? Give summary @ -No Was smoking cessation discussed for >3mins.? @ -No Was critical care preformed (if so, how long)? @ -No Were there social determinants of health that impacted care today? How? (Homelessness, low income, unemployed, alcoholism, drug addiction, transportation, low edu. Level, literacy, decrease access to med. care, half-way, rehab)? @ -No Was there de-escalation of care discussed even if they declined (Discuss DNR or withdrawal of care, Hospice)? DNR status @ -No What co-morbidities impacted this encounter? (DM, HTN, Smoking, COPD, CAD, Cancer, CVA, ARF, Chemo, Hep., AIDS, mental health diagnosis, sleep apnea, morbid obesity)? @ -COPD Was patient admitted / discharged? Hospital course, mention meds given and route, prescriptions, significant lab abnormalities, going to OR and other pertinent info. @ -Upon arrival patient seen and evaluated in bed 6. Thorough history and phys ical exam was performed. NIH was assessed and the patient scores a 0. She has no lateralizing weakness. I cannot appreciate a decrease in the patient's strength. IV was established and laboratory studies were conducted. CT of the brain was performed as well as x-rays of the bilateral feet. CT demonstrates no acute process. X-ray of the bilateral feet demonstrates no acute process. Patient was given medication for her cephalgia and reports that she does have improvement in her nausea and pain. I did discuss diagnosis, differential and treatment options. At this time I do feel that the patient is stable for discharge home as her symptoms have been ongoing for months with no life-thre atening process identified. Patient is to follow-up with her primary care doctor within 2 to 4 days for reevaluation of her symptoms. She may need further evaluation by a neurologist with further imaging to include an MRI. If the patient has any acute worsening of her symptoms she needs to return to the emergency department. She was agreeable with plan she was discharged in stable condition Undiagnosed new problem with uncertain prognosis? @ -No Drug Therapy requiring intensive monitoring for toxicity (Heparin, Nitro, Insulin, Cardizem)? @ -No Were any procedures done? @ -No Diagnosis/symptom? @ -Acute on chronic cephalgia, bilateral foot pain secondary to blunt trauma, subjective bilateral hand weakness, nausea and vomiting Acute, or Chronic, or Acute on Chronic? @ -Acute on chronic Uncomplicated (without systemic symptoms) or Complicated (systemic symptoms)? @ -Complicated Side effects of treatment? @ -No Exacerbation, Progression, or Severe Exacerbation? @ -No Poses a threat to life or bodily function? How? (Chest pain, [place], [place], pneumonia, PE, COPD, DKA, ARF, appy, cholecystitis, CVA, Diverticulitis, Homicidal, Suicidal, threat to staff... and all critical care pts) @ -No - Lab Data Result diagrams: 01/20/25 01:55 01/20/25 01:55 Lab Results 01/20/25 01/20/25 01/20/25 Range/Units 01:55 01:55 01:55 WBC 10.31 H (4.50-10.00) 10*3/uL RBC 5.00 (4.10-5.20) 10*6/uL Hgb 15.4 H (12.0-15.0) g/dL Hct 43.8 (37.2-46.3) % MCV 87.6 (80.0-97.0) fL MCH 30.8 (27.0-32.0) pg MCHC 35.2 (32.0-37.0) g/dL Plt Count 286 (140-440) 10*3/uL MPV 9.1 L (9.5-12.2) fL Immature Gran % (Auto) 0.4 % Neutrophils % 70.9 % Lymphocytes % 20.1 % Monocytes % 7.6 % Eosinophils % 0.4 % Basophils % 0.6 % Immature Gran # 0.04 (0.00-0.04) 10*3/uL Neutrophils # 7.32 (1.80-7.70) 10*3/uL Lymphocytes # 2.07 (0.90-5.00) 10*3/uL Monocytes # 0.78 (0.20-1.00) 10*3/uL Eosinophils # 0.04 (0.04-0.35) 10*3/uL Basophils # 0.06 (0.00-0.10) 10*3/uL Sodium 138 (137-145) mmol/L Potassium 4.6 (3.5-5.1) mmol/L Chloride 105 (98-107) mmol/L Carbon Dioxide 25 (22-30) mmol/L Anion Gap 8 mmol/L BUN 25 H (7-17) mg/dL Creatinine 1.64 H (0.52-1.04) mg/dL Est GFR (CKD-EPI)AfAm 38 (>60 ml/min/1.73 sqM) Est GFR (CKD-EPI)NonAf 33 (>60 ml/min/1.73 sqM) Glucose 95 (74-99) mg/dL Plasma Lactic Acid Jorge 1.3 (0.7-2.0) mmol/L Calcium 10.2 (8.4-10.2) mg/dL Total Bilirubin 0.3 (0.2-1.3) mg/dL AST 23 (14-36) U/L ALT 19 (4-34) U/L Alkaline Phosphatase 171 H (38-126) U/L Troponin I (0.000-0.034) ng/mL Total Protein 6.4 (6.3-8.2) g/dL Albumin 4.0 (3.5-5.0) g/dL / Range/Units 01:55 WBC (4.50-10.00) 10*3/uL RBC (4.10-5.20) 10*6/uL Hgb (12.0-15.0) g/dL Hct (37.2-46.3) % MCV (80.0-97.0) fL MCH (27.0-32.0) pg MCHC (32.0-37.0) g/dL Plt Count (140-440) 10*3/uL MPV (9.5-12.2) fL Immature Gran % (Auto) % Neutrophils % % Lymphocytes % % Monocytes % % Eosinophils % % Basophils % % Immature Gran # (0.00-0.04) 10*3/uL Neutrophils # (1.80-7.70) 10*3/uL Lymphocytes # (0.90-5.00) 10*3/uL Monocytes # (0.20-1.00) 10*3/uL Eosinophils # (0.04-0.35) 10*3/uL Basophils # (0.00-0.10) 10*3/uL Sodium (137-145) mmol/L Potassium (3.5-5.1) mmol/L Chloride (98-107) mmol/L Carbon Dioxide (22-30) mmol/L Anion Gap mmol/L BUN (7-17) mg/dL Creatinine (0.52-1.04) mg/dL Est GFR (CKD-EPI)AfAm (>60 ml/min/1.73 sqM) Est GFR (CKD-EPI)NonAf (>60 ml/min/1.73 sqM) Glucose (74-99) mg/dL Plasma Lactic Acid Jorge (0.7-2.0) mmol/L Calcium (8.4-10.2) mg/dL Total Bilirubin (0.2-1.3) mg/dL AST (14-36) U/L ALT (4-34) U/L Alkaline Phosphatase (38-126) U/L Troponin I <0.012 (0.000-0.034) ng/mL Total Protein (6.3-8.2) g/dL Albumin (3.5-5.0) g/dL Disposition Clinical Impression: Headache, Nausea and vomiting Disposition: HOME SELF-CARE Condition: Stable Instructions (If sedation given, give patient instructions): Acute Headache (ED) Additional Instructions: Take the nausea medication and muscle relaxer as needed for pain and nausea. Follow-up with your primary care in 2 to 4 days for reevaluation. You may need to see a neurologist as I am concerned for a condition called occipital neuralgia. Return for any new or worsening symptoms Prescriptions: Cyclobenzaprine [Flexeril] 10 mg PO TID PRN #15 tab PRN Reason: Muscle Spasm Ondansetron Odt [Zofran Odt] 4 mg PO Q8HR PRN #20 tab PRN Reason: Nausea Is patient prescribed a controlled substance at d/c from ED?: No Referrals: Ray Segovia MD [Primary Care Provider] - 1-2 days Time of Disposition: 06:05
[2025-01-20] MEDS: MORPHINE SULFATE 4 MG/ML SYRINGE IVP STA (06:18)
[2025-01-20 06:26] VITALS: BP 121/69; PULSE 47; RESP 14
--- NOTE | 2025-01-20 07:29 | XR ---
EXAMINATION TYPE: XR foot limited bilateral DATE OF EXAM: 01/20/2025 5:35 AM COMPARISON: None CLINICAL INDICATION: Female, 64 years old with history of dropped items b.l feet with bruised toes; P HH, pain TECHNIQUE: 2 views on each side FINDINGS: There is mild degenerative spurring at the first MTP joint on either side, greater on the left. Corti cated ossific density at the base of the fifth metatarsal on the left suggests sequela of old injury. Similarly, corticated bone fragment inferior tip of the lateral malleolus on the left. Ossific densi ty along the lateral mid to hindfoot on the left probably corresponds to an os peroneum. Correlate fo r any point tenderness here for history of old injury to this location that may correspond to the dis reginald lateral aspect of the calcaneus. In addition, on the left, there is irregularity of the anterior process of the calcaneus suggesting old fracture. Otherwise, no additional acute fracture, subluxatio n, or dislocation is seen. IMPRESSION: 1. Left: Sequela of old injury at the base of the fifth metatarsal and at the lateral malleolus. Jorge tional bony irregularity at the distal lateral calcaneus and at the anterior process of the calcaneus also both favored to be sequela of old injuries. However, correlation with point tenderness and candice ent's trauma history is advised to exclude the possibility of acute fractures here. 2. Right: No acute osseous abnormalities seen. [facility], Workstation: [facility] HospitalMARY, 01/20/2025 7:27 AM
== END 2025-01-20 06:47 | disposition home or self-care (01) ==
LOC: EC 01:33
DX: R51.9 Headache, unspecified (principal); R11.2 Nausea with vomiting, unspecified; J44.9 Chronic obstructive pulmonary disease, unspecified; F17.200 Nicotine dependence, unspecified, uncomplicated; Z88.0 Allergy status to penicillin
CPT/HCPCS: 36415; 93005; 80053; 83605; 84484; 85025; 73620; 72125; 70450; 99284; 96374; 96375; 96361; J2270; J1200; J2765; J1885

== ENCOUNTER → 2025-02-01 | Outpatient (CLI) | payer MEDICARE ==
--- NOTE | 2025-02-01 09:00 | CTL ---
EXAMINATION TYPE: CT Low Dose Lung DATE OF EXAM: 02/01/2025 8:23 AM COMPARISON: CT chest 03/16/2023 CLINICAL INDICATION: Female, 64 years old with history of Z12.2 ENCNTR SCREEN FOR MALIGNANT NEOPLA, F 17.210, Current smoker, 2 ppd x 50 years, hx COPD, History of tobacco use. TECHNIQUE: Low Dose CT Lung Screening, Low dose computed tomography scan was performed through the est at 1 millimeter thick sections and reconstructed images in the coronal plane at 1 mm thick sectio ns. IV CONTRAST USED: None. SCREENING VISIT: First visit CT DLP: 76.2 mGycm, Automated exposure control for dose reduction was used. CT CTDI: 2.5 mGy FINDINGS: CT DIAGNOSTIC QUALITY: Satisfactory LUNG NODULES: 3.3 mm right upper lobe pulmonary nodule image 79. 2 right lower lobe pulmonary nodules image 99 posterior medially measuring up to 3.5 mm. Pleural-based right lower lobe nodule posteriorl y image 107 measures 6.2 mm. Right upper lobe anterior pulmonary nodule measuring 4 mm image 131. Lef t lower lobe pulmonary nodule measuring 5.4 mm image 139. LUNGS: COPD: Severity: Mild Fibrosis: Severity:None Lymph nodes: None Other findings: None RIGHT PLEURAL SPACE: Effusion: None Calcification: None Thickening: None Pneumothorax: None LEFT PLEURAL SPACE: Effusion: None Calcification: None Thickening: None Pneumothorax: None HEART: * Size within normal limits. * No significant coronary artery calcifications. OTHER FINDINGS: Upper abdomen: No significant abnormality Bony thorax: Degenerative changes Supraclavicular region: No significant abnormalityOther: No significant abnormalityI IMPRESSION: 1. Probably benign lung rads category 3. Six-month follow-up recommended. 2. Mild emphysema. CT LUNG RAD AND CT CHEST RECOMMENDATION: Lung-Rad 3 Probably Benign: 6 month follow-up LDCT. S Modifier (other clinically significant findings): [facility], , 02/01/2025 8:58 AM
== END | disposition home or self-care (01) ==
LOC: RADCTMAIN 07:52
PROVIDERS: ATTEND Family Medicine
DX: Z12.2 Encounter for screening for malignant neoplasm of respiratory organs (principal); F17.210 Nicotine dependence, cigarettes, uncomplicated; J43.9 Emphysema, unspecified; R91.1 Solitary pulmonary nodule
CPT/HCPCS: 71271

== ENCOUNTER 2025-03-17 12:02 | Day surgery (SDC) | payer MEDICARE ==
[~2025-03-17 12:02] MED LIST: LIDOCAINE 1% (10MG/ML) FOR IV START INTRADERMA PRN
[2025-03-17] MEDS: IV FLUID CONTINUATION 1,000 ML IV ONE (13:30)
[2025-03-17] MEDS: LACTATED RINGERS 1,000 ML IV SCH (13:44)
[2025-03-17 13:47] VITALS: RESP 16; TEMP 96.8
[2025-03-17] MEDS ORDERED: fentaNYL (PF) 50 MCG/ML 2 ML AMP ONE (14:30)
[2025-03-17] MEDS ORDERED: PROPOFOL 10 MG/ML 20 ML VIAL IV ONE (14:30)
[2025-03-17] MEDS ORDERED: LIDOCAINE 1% INJ 10MG/ML (20 ML MDV) ONE (14:30)
--- NOTE | 2025-03-17 14:40 | P.PCN ---
Date of Procedure: 03/17/25 Procedure(s) Performed: BRIEF HISTORY: Patient is a 65-year-old, pleasant, white female scheduled an upper endoscopy as a part of evaluation of GERD and chronic epigastric pain for the last 6 months duration. She is presently brandies with milligrams daily with some help... PROCEDURE PERFORMED: Esophagogastroduodenoscopy with biopsy. PREOPERATIVE DIAGNOSIS: GERD/chronic epigastric pain. IV sedation per anesthesia. PROCEDURE: After informed consent was obtained, the patient was brought into the endoscopy unit. IV sedation was administered by Anesthesia under continuous monitoring. Initially the Olympus GIF-140 video endoscope was inserted into the mouth. Esophagus intubated without any difficulty. It was gradually advanced into the stomach and duodenum and carefully examined. The bulb and the second part of the duodenum appeared normal. The scope at this time was withdrawn to the stomach, adequately insufflated with air, and upon careful examination, mucosa of the antrum, body, had diffuse gastritis and biopsies were done from this area. Mucosa of the cardia and the fundus appeared normal. The scope was then withdrawn into the esophagus. The GE junction was located at 39 cm from the incisors. There was 1 superficial erosions in the distal esophagus consistent with LA grade a reflux esophagitis. Rest of the the esophagus appeared normal. The patient tolerated the procedure well. IMPRESSION: 1. Mild diffuse antral gastritis. 2. One superficial erosion in the distal esophagus consistent with LA grade A reflux esophagitis. RECOMMENDATIONS: The findings of this examination were discussed with the patient as well as her family. She was advised to follow-up with the biopsy results. Advised to continue with Protonix 40 mg daily and follow antireflux measures..
[2025-03-17 15:06] VITALS: BP 132/66; PULSE 74
== END 2025-03-17 15:20 | disposition home or self-care (01) ==
LOC: ORWHC2ENDO 12:02
PROVIDERS: ATTEND Internal Medicine Gastroenterology
DX: K29.50 Unspecified chronic gastritis without bleeding (principal); K21.00 Gastro-esophageal reflux disease with esophagitis, without bleeding; G89.29 Other chronic pain; E78.5 Hyperlipidemia, unspecified; N18.30 Chronic kidney disease, stage 3 unspecified; J44.9 Chronic obstructive pulmonary disease, unspecified; M19.90 Unspecified osteoarthritis, unspecified site; F17.210 Nicotine dependence, cigarettes, uncomplicated; F31.9 Bipolar disorder, unspecified; F41.9 Anxiety disorder, unspecified; Z88.0 Allergy status to penicillin; Z79.899 Other long term (current) drug therapy; Z79.51 Long term (current) use of inhaled steroids; Z90.710 Acquired absence of both cervix and uterus
CPT/HCPCS: 88305; 43239; J2003; J3010; J2704